=== PATIENT | female | born 1990 | race Caucasian/White ===

== ENCOUNTER 2023-07-22 20:33 | Outpatient (REF) | payer BC, SELFPAY ==
[2023-07-26 17:39] LABS: Age Gdln ACOG Testing Note (.); HPV Aptima Negative (Negative); IGP, Aptima HPV, rfx 16/18,45 Note (.)
== END 2023-07-22 20:34 | disposition home or self-care (01) ==
LOC: LAB 20:33
PROVIDERS: PCP Nurse Practitioner Primary Care; Visit Provider Obstetrics & Gynecology
DX: Z12.4 Encounter for screening for malignant neoplasm of cervix (principal)
CPT/HCPCS: 87624; G0145

== ENCOUNTER 2023-08-04 08:14 | Outpatient (OUT) | payer BC, SELFPAY ==
[2023-08-04 09:06] LABS: Basophils Percent Auto 0.4 % (0.2-2.0); Eosinophils Absolute Auto 0.3 10^3/uL (0.0-0.7); Eosinophils Percent Auto 3.2 % (0.9-7.0); Hemoglobin 13.5 g/dL (12.0-16.0); Immature Granulocytes Abs Auto 0.03 10^3/uL (0.00-0.03); Immature Granulocytes Pct Auto 0.4 % (0.0-0.5); Lymphocytes Absolute Auto 1.6 10^3/uL (1.2-3.8); Lymphocytes Percent Auto 20.1 % (20.5-60.0); Mean Corpuscular HGB Conc 33.8 g/dL (29.9-35.2); Mean Corpuscular Hemoglobin 28.7 pg (26.7-34.0); Mean Corpuscular Volume 84.9 fL (81.0-99.0); Monocytes Absolute Auto 0.5 10^3/uL (0.3-0.8); Monocytes Percent Auto 6.6 % (1.7-12.0); Neutrophils Absolute Auto 5.6 10^3/uL (1.4-6.5); Neutrophils Percent Auto 69.3 % (43.0-75.0); Platelet Count 280 10^3/uL (150-450); Red Blood Count 4.71 10^6/uL (4.20-5.40); Red Cell Distribution Width 12.9 % (11.0-15.0)
[2023-08-04 09:17] LABS: Estimated Average Glucose 100 mg/dL; Glycohemoglobin A1C 5.1 % (4.5-6.2)
[2023-08-04 09:57] LABS: Free T4 0.96 ng/dL (0.76-1.46)
[2023-08-04 10:06] LABS: HCG Quantitative <1 mIU/mL; Thyroid Stimulating Hormone 3.373 uIU/mL (0.358-3.740)
[2023-08-05 04:07] LABS: FSH 2.6 mIU/mL (.); Luteinizing Hormone(LH) 6.9 mIU/mL (.)
[2023-08-07 12:12] LABS: DHEA, Serum 375 ng/dL (31-701)
== END 2023-08-04 08:15 | disposition home or self-care (01) ==
LOC: LAB 08:16
PROVIDERS: PCP Nurse Practitioner Primary Care; Visit Provider Obstetrics & Gynecology
DX: E28.2 Polycystic ovarian syndrome (principal); N92.6 Irregular menstruation, unspecified
CPT/HCPCS: 36415; 82626; 82627; 83001; 83002; 83036; 84439; 84443; 84702; 85025

== ENCOUNTER 2023-08-05 09:59 | Outpatient (OUT) | payer BC, SELFPAY ==
--- NOTE | 2023-08-05 10:03 | US_ITS ---
The [address] [address] Patient Name: KIERRA HAIRSTON MRN: [id number] date: 1990 Sex: F Assigned Patient Location: Current Patient Location: Accession/Order Number: [id number] Exam Date: 08/05/2023 10:05 Report Date: 08/05/2023 10:59 At the request of: REMIGIO DORMAN Procedure: US pelvis transvaginal EXAM: Pelvic ultrasound HISTORY: . Polycystic Ovarian Syndrome E28.2, Irregular Menstrual Cycle . COMPARISON: None. TECHNIQUE: Transvaginal scanning was performed FINDINGS: Scanning of the pelvis demonstrates uterus to be retroverted and measures 7.9 x 5.6 x 4.6 cm. Endometrial complex measures 8 mm. Right ovary measures 4.3 x 3.1 x 2.7 cm. Color-flow is noted. Resistive indexes 0.5. Follicles are noted. Left ovary measures 3.2 x 2.1 x 1.9 cm. Color-flow is noted. Resistive indexes 0.6. No masses are noted. No fluid is noted in the cul-de-sac. US/US pelvis transvaginal IMPRESSION: Normal ultrasound of the pelvis. Electronically authenticated by: ELSIE PERALTA Date: 08/05/2023 10:59
== END 2023-08-05 10:00 | disposition home or self-care (01) ==
LOC: US 09:59
PROVIDERS: PCP Nurse Practitioner Primary Care; Visit Provider Obstetrics & Gynecology
DX: E28.2 Polycystic ovarian syndrome (principal); N92.6 Irregular menstruation, unspecified
CPT/HCPCS: 76830

== ENCOUNTER 2023-09-02 08:10 | Outpatient (OUT) | payer BC, SELFPAY ==
[2023-09-03 04:07] LABS: Progesterone 1.2 ng/mL (.)
== END 2023-09-02 08:11 | disposition home or self-care (01) ==
LOC: LAB 08:10
PROVIDERS: PCP Nurse Practitioner Primary Care; Visit Provider Obstetrics & Gynecology
DX: N97.0 Female infertility associated with anovulation (principal)
CPT/HCPCS: 36415; 84144

== ENCOUNTER 2023-09-29 16:55 | Emergency (ER) | payer BC, SELFPAY ==
[2023-09-29 17:04] VITALS: BP 126/82; PULSE 85; RESP 16; TEMP 36.9; O2SAT 99; BMI 38.0
[2023-09-29 17:28] VITALS: RESP 14; O2SAT 96
--- NOTE | 2023-09-29 17:30 | CT_ITS ---
The [address] [address] Patient Name: KIERRA HAIRSTON MRN: [id number] date: 1990 Sex: F Assigned Patient Location: ER Current Patient Location: ER Accession/Order Number: [id number] Exam Date: 09/29/2023 17:25 Report Date: 09/29/2023 18:05 At the request of: ELOISA CARDONA Procedure: CT head/brain wo con CT HEAD WITHOUT CONTRAST. INDICATION: Headache. COMPARISON: None available for comparison TECHNIQUE: Axial CT head images from the skull base to the vertex without IV contrast were acquired. Coronal and sagittal reformats were also obtained. FINDINGS: EXTRA-AXIAL SPACE: Age-appropriate ventricles. No acute extra-axial collection. No extra-axial mass. No midline shift. CEREBRUM: No focal abnormality. No CT evidence of acute large territorial cortical infarct, hemorrhage or mass effect. CEREBELLUM: No focal abnormality. No CT evidence of acute infarct, hemorrhage or mass effect. BRAINSTEM: No focal abnormality. No CT evidence of acute infarct, hemorrhage or mass effect. EXTRACRANIAL STRUCTURES. The paranasal sinuses are clear. Mastoid air cells are clear. Orbits are unremarkable. No discrete pituitary mass. Intact calvarium. CT/CT head/brain wo con IMPRESSION: No acute intracranial abnormality. Electronically authenticated by: RAYMUNDO MONROE Date: 09/29/2023 18:05
--- NOTE | 2023-09-29 17:35 | XR_ITS ---
The [address] [address] Patient Name: KIERRA HAIRSTON MRN: [id number] date: 1990 Sex: F Assigned Patient Location: ER Current Patient Location: ER Accession/Order Number: [id number] Exam Date: 09/29/2023 17:30 Report Date: 09/29/2023 18:06 At the request of: ELOISA CARDONA Procedure: XR nasal bones min 3V EXAM: XR nasal bones min 3V TECHNIQUE: AP and both lateral views of the nasal bones. HISTORY: injury COMPARISON: None. FINDINGS: There is fracture of the tip of the nasal bones with mild inferior angulation and overlying soft tissue swelling. No additional facial bone fracture. The sinuses appear clear. XR/XR nasal bones min 3V IMPRESSION: Fracture of the tip of the nasal bones with inferior angulation. Electronically authenticated by: JENISE REDMOND Date: 09/29/2023 18:06
--- NOTE | 2023-09-29 18:17 | ED.GENADUL1 ---
HPI - General Adult General Chief complaint: Head Injury Stated complaint: UPPER EXTREMITY INJURY Time Seen by Provider: 09/29/23 17:00 Source: patient and family Mode of arrival: walk-in Limitations: no limitations History of Present Illness HPI narrative: 32-year-old female presents for head injury and pain to her nose. She was helping somebody sit down and his head came backwards in the back of his head hit her on the nose and forehead area. She didn't fall or lose consciousness. His pain at the bridge of the nose. She did not have epistaxis. No other injury was sustained. She has a mild headache. This happened just before coming into the emergency department. Related Data Previous Rx's Medication Instructions Recorded acetaminophen 300 mg-codeine 30 mg 1 tab PO Q6H PRN pain 5 days #20 09/29/23 tablet tabs ibuprofen 800 mg tablet 800 mg PO Q8H PRN pain #20 tabs 09/29/23 Allergies Allergy/AdvReac Type Severity Reaction Status Date / Time No Known Drug Allergies Allergy Verified 09/29/23 17:08 Review of Systems ROS Narrative A ten point review of systems is negative except as noted above. PFSH PFSH Social History Smoking status: Never smoker Exam Narrative Exam Narrative: Nurses note and vital signs reviewed and patient is not hypoxic. General: The patient appears well and in no apparent distress. Patient is resting comfortably on cart. Skin: Warm, dry, no pallor noted. There is no rash noted. Head: Normocephalic, atraumatic Eye: Normal conjunctiva, no drainage Ears, Nose, Mouth, and Throat: oral mucosa is moist. she has mild swelling and bruising to the bridge of her nose. No laceration or epistaxis. No raccoon's eyes or Barney sign. Cardiovascular: Regular Rate and Rhythm Respiratory: Patient is in no distress, no accessory muscle use, lungs are clear to auscultation, no wheezing, rales or rhonchi Back: non-tender GI: soft and nontender Musculoskeletal: The patient has no evidence of calf tenderness, no pitting edema, symmetrical pulses noted bilaterally Neurological: A&O, normal speech Psychiatric: Cooperative Constitutional Vital Signs, click to edit/add: Last Vital Signs Temp 98.5 F 09/29/23 17:04 Pulse 85 09/29/23 17:04 Resp 14 09/29/23 17:28 BP 126/82 09/29/23 17:04 Pulse Ox 96 09/29/23 17:28 O2 Del Method Room Air 09/29/23 17:28 Course Vital Signs Vital signs: Vital Signs Temperature 98.5 F 09/29/23 17:04 Pulse Rate 85 09/29/23 17:04 Respiratory Rate 16 09/29/23 17:04 Blood Pressure 126/82 09/29/23 17:04 Pulse Oximetry 99 09/29/23 17:04 Oxygen Delivery Method Room Air 09/29/23 17:04 Temperature 98.5 F 09/29/23 17:04 Pulse Rate 85 09/29/23 17:04 Respiratory Rate 14 09/29/23 17:28 Blood Pressure 126/82 09/29/23 17:04 Pulse Oximetry 96 09/29/23 17:28 Oxygen Delivery Method Room Air 09/29/23 17:28 Medical Decision Making MDM Narrative Medical decision making narrative: nasal fractures identified and she is provided pain medication. Treatment diagnosis and follow-up were discussed with the patient. Differential Diagnosis Differential Diagnosis: nasal fracture, nasal contusion, intracranial hemorrhage Imaging Data nasal x-ray, CT brain: Radiologist's impression: Procedure: CT head/brain wo con CT HEAD WITHOUT CONTRAST. INDICATION: Headache. COMPARISON: None available for comparison TECHNIQUE: Axial CT head images from the skull base to the vertex without IV contrast were acquired. Coronal and sagittal reformats were also obtained. FINDINGS: EXTRA-AXIAL SPACE: Age-appropriate ventricles. No acute extra-axial collection. No extra-axial mass. No midline shift. CEREBRUM: No focal abnormality. No CT evidence of acute large territorial cortical infarct, hemorrhage or mass effect. CEREBELLUM: No focal abnormality. No CT evidence of acute infarct, hemorrhage or mass effect. BRAINSTEM: No focal abnormality. No CT evidence of acute infarct, hemorrhage or mass effect. EXTRACRANIAL STRUCTURES. The paranasal sinuses are clear. Mastoid air cells are clear. Orbits are unremarkable. No discrete pituitary mass. Intact calvarium. IMPRESSION: No acute intracranial abnormality. Electronically authenticated by: RAYMUNDO MONROE Date: 09/29/2023 18:05 Procedure: XR nasal bones min 3V EXAM: XR nasal bones min 3V TECHNIQUE: AP and both lateral views of the nasal bones. HISTORY: injury COMPARISON: None. FINDINGS: There is fracture of the tip of the nasal bones with mild inferior angulation and overlying soft tissue swelling. No additional facial bone fracture. The sinuses appear clear. IMPRESSION: Fracture of the tip of the nasal bones with inferior angulation. Electronically authenticated by: JENISE REDMOND Date: 09/29/2023 18:06 Discharge Plan Discharge Chief Complaint: Head Injury Clinical Impression: Closed fracture nasal bone Patient Disposition: Home, Self-Care Time of Disposition Decision: 18:15 Condition: Good Mode of Transportation: Private Vehicle Prescriptions / Home Meds: New acetaminophen-codeine 300-30 mg tablet 1 tab PO Q6H PRN (Reason: pain) 5 Days Qty: 20 0RF ibuprofen 800 mg tablet 800 mg PO Q8H PRN (Reason: pain) Qty: 20 0RF Instructions: Nasal Fracture (ED) Stand Alone Forms: Portal Instructions Referrals: SAJAN CHRISTIAN APRN [Primary Care Provider] - 1 week
== END 2023-09-29 18:29 | disposition home or self-care (01) ==
PROVIDERS: Emergency Provider Emergency Medicine; PCP Nurse Practitioner Primary Care
DX: S02.2XXA Fracture of nasal bones, initial encounter for closed fracture (principal); W50.0XXA Accidental hit or strike by another person, initial encounter
CPT/HCPCS: 70160; 70450; 99284

== ENCOUNTER 2023-10-09 12:53 | Outpatient (OUT) | payer BC, SELFPAY ==
[2023-10-10 04:07] LABS: Progesterone 12.2 ng/mL (.)
== END 2023-10-09 12:54 | disposition home or self-care (01) ==
LOC: LAB 12:53
PROVIDERS: PCP Nurse Practitioner Primary Care; Visit Provider Obstetrics & Gynecology
DX: N97.0 Female infertility associated with anovulation (principal)
CPT/HCPCS: 36415; 84144

== ENCOUNTER 2023-11-08 07:40 | Outpatient (OUT) | payer BC, SELFPAY ==
[2023-11-09 08:11] LABS: Progesterone 17.2 ng/mL (.)
== END 2023-11-08 07:41 | disposition home or self-care (01) ==
PROVIDERS: PCP Nurse Practitioner Primary Care; Visit Provider Obstetrics & Gynecology
DX: N97.0 Female infertility associated with anovulation (principal)
CPT/HCPCS: 36415; 84144

== ENCOUNTER 2023-11-10 11:00 | Outpatient (RCR) | payer BC, SELFPAY ==
[2023-11-10 11:53] LABS: HCG Quantitative <1 mIU/mL
== END 2023-11-23 07:59 | disposition home or self-care (01) ==
LOC: LAB 11:00
PROVIDERS: PCP Nurse Practitioner Primary Care; Visit Provider Obstetrics & Gynecology
DX: N92.6 Irregular menstruation, unspecified (principal)
CPT/HCPCS: 36415; 84702

== ENCOUNTER 2024-08-19 19:29 | Outpatient (REF) | payer BC, SELFPAY ==
--- OUTSIDE RECORDS SUMMARY | 2024-08-19 19:34 | XMS_ITS | CCD ---
Author Organization [facility] Care Team Providers Care Licensed Aircraft Maintenance Engineer Name Role Phone SHAMMO, SAJAN Admitting Unavailable SHAMMO, SAJAN Attending Unavailable SHAMMO, SAJAN Primary Care Unavailable Zieber, Mp Consulting Unavailable SHAMMO, SAJAN Consulting Unavailable SHAMMO, SAJAN Admitting Unavailable SHAMMO, SAJAN Attending Unavailable SHAMMO, SAJAN Primary Care Unavailable Zieber, Mp Consulting Unavailable SHAMMO, SAJAN Consulting Unavailable SHAMMO, SAJAN Admitting Unavailable SHAMMO, SAJAN Attending Unavailable SHAMMO, SAJAN Primary Care Unavailable SHAMMO, SAJAN Consulting Unavailable SHAMMO, SAJAN CHRISTIAN Primary Care Physician SHAMMO, SAJAN Primary Care Unavailable Windnagel, Ro Referring Unavailable SHAMMO, SAJAN Primary Care Unavailable CAREN FULTON Attending Unavailable Windnagel, Ro Admitting Unavailable Windnagel, Ro Attending Unavailable Windnagel, Ro Referring Unavailable SHAMMO, SAJAN Primary Care Unavailable BELTRAN TRIPATHI Attending Unavailable BELTRAN TRIPATHI Attending Unavailable WINDNAGEL, RO C Referring Unavailable NO PCP, NO PCP Primary Care Unavailable Windnagel, ANP-BC Ro Attending Provider NON STAFF Primary Care Provider Unavailabl e Windnagel, CONVEYOR TENDER [employer] Ro C Attending Provider NON STAFF Primary Care Unavailable Windnagel, Ro C Referring Unavailable Windnagel, Ro Admitting Unavailable Windnagel, Or Attending Unavailable Windnagel, Ro C Admitting Unavailable Windnagel, Ro C Attending Unavailable NON STAFF Primary Care Unavailable REMIGIO DORMAN Attending Unavailable BRUNO RYAN Attending Unavailable WINDNAGEL, RO C Attending Unavailable WINDNAGEL, RO C Referring Unavailable WINDNAGEL, RO C Attending Unavailable BAILEY PATELICIA Ladan Attending Unavailable BAILEY PATELICIA Ladan Attending Unavailable BAILEY PATELICIA Ladan Attending Unavailable FE STALLINGS Attending Unavailable Allergies Allergy Classification Reported Allergen(s) Allergy Type Date of Onset Reaction(s) Facility (1 source) Dextromethorphan / guaiFENesin; Translations: [DEXTROMETHORPHAN- AIFENESIN] Drug Allergy [facility] Repository Problems Active Problems Problem Classification Problem Date Documented Date Episodic/Chronic Anxiety disorders (2 sources) Anxiety; Translations: [Posttraumatic stress disorder] 07-03-2023 Chronic Attention-deficit, conduct, and disruptive behavior disorders (1 source) Attention deficit hyperactivity disorder 07-03-2023 Chronic Blindness and vision defects (1 source) Diplopia; Translations: [Diplopia] Onset: 05-31-2024 Episodic Endometriosis (1 source) Endometriosis (clinical) Onset: 06-04-2016 07-03-2023 Chronic Female infertility (1 source) Female infertility 07-03-2023 Chronic Genitourinary symptoms and ill-defined conditions (1 source) Nocturnal enuresis; Translations: [NOCTURNAL ENURESIS] Onset: 03-09-2023 Chronic Immunizations and screening for infectious disease (1 source) Encounter for screening for human immunodeficiency virus [HIV]; Translations: [ENCOUNTER FOR SCREENING FOR HIV] Onset: 03-09-2023 Episodic Mood disorders (1 source) Depressive disorder Onset: 07-13-2019 07-03-2023 Chronic Other nervous system disorders (2 sources) Carpal tunnel syndrome, bilateral upper limbs; Translations: [Carpal tunnel syndrome, bilateral upper limbs] Onset: 04-10-2023 Chronic Other nervous system disorders (1 source) Polyneuropathy, unspecified; Translations: [Polyneuropathy, unspecified] Onset: 05-31-2024 Chronic Other screening for suspected conditions (not mental disorders or infectious disease) (1 source) Encounter for screening for cardiovascular disorders; Translations: [ENC FOR SCREENING FOR CV DISORDERS] Onset: 03-01-2023 Episodic Residual codes; unclassified (1 source) Family history of other diseases of the musculoskeletal system and connective tissue; Translations: [FAM HX OTH DZ MUSK SYS AND CNCTV TISS] Onset: 04-16-2023 Episodic Spondylosis; intervertebral disc disorders; other back problems (8 sources) Pain in thoracic spine; Translations: [Occipital neuralgia] Onset: 02-13-2023 Episodic Unclassified (1 source) Low back pain, unspecified; Translations: [Low back pain, unspecified] Onset: 08-10-2024 Past or Other Problems Problem Classification Problem Date Documented Da te Episodic/Chronic Diseases of mouth; excluding dental (2 sources) Dry mouth, unspecified; Translations: [Dry mouth, unspecified] Onset: 04-10-2023 Episodic Malaise and fatigue (2 sources) Other fatigue; Translations: [Other fatigue] Onset: 04-10-2023 Episodic Other eye disorders (2 sources) Dry eye syndrome of bilateral lacrimal glands; Translations: [Dry eye syndrome of bilateral lacrimal glands] Onset: 04-10-2023 Episodic Other non-traumatic joint disorders (6 sources) Pain in unspecified joint; Translations: [PAIN IN UNSPECIFIED JOINT] Onset: 03-04-2023 Episodic Results Test Name Value Interpretation Reference Range Facility XR pre/post mri xrayon 08-10 XR pre/post mri xray [facility] [place] [address] MRI Report Signed Patient: Kierra Natarajan MR#: [id number] 35 : 1990 Acct:[id number] Age/Sex: 33 / F ADM Date: 08/10/24 Loc: Room: Type: [facility] Attending Dr: Ro MAGDALENO Copies to: RASTA Arzola Ordering Provider: RASTA Arzola Date of Service: 08/10/24 MR/MR lumbar spine wo con: R26.9, M54.50, N39.489, R20.0 ([id number]) XR/XR pre/post mri xray: R26.9, M54.50, N39.489, R20.0 MRI Lumbar Spine withoutcontrast TECHNIQUE: Multiplanar T1 and T2-weighted imaging of lumbar spine obtained without contrast. HISTORY: Right flank pain. Left leg numbness. 3 years duration. Loss of control of bowel bladder. COMPARISON: None The last fully segmented vertebral pair is operationally defined as L5/S1. POST SURGERY CHANGES: None BONE MARROW INFILTRATION: None BONE MARROW EDEMA: None BONY ALIGNMENT: Adequate bony alignment identified. SPINAL CANAL: No significant central canal narrowing. LUMBAR FRACTURE: None BONY LESIONS: Small L1 vertebral body hemangioma. KIDNEYS: No hydronephrosis is identified. AORTA: No aortic aneurysm is seen. CONUS MEDULLARIS : The distal spinal cord is in adequate position without abnormality. Additional findings Incompletely visualized cystic lesion of the pelvis present. This may be of ovarian origin. This measures up to 3.7 cm. CONJOINED NERVE ROOT: None Lower thoracic level: Unremarkable L1-2 :Unremarkable L2-3: Unremarkable L3-4: Unremarkable L4-5: Unremarkable L5-S1: Unremarkable MR/MR lumbar spine wo con IMPRESSION: Unremarkable MRI of the lumbar spine. Incompletely visualized pelvic cystic lesion. This may be of ovarian origin. May consider further assessment with pelvic ultrasound. Pre-MRI plain film assessment: 2 views lumbar spine obtained for pre-MRI assessment. Adequate alignment. Adequate disc spaces and vertebral body heights. No significant degenerative change. No fracture. Impression dictated by: Eben Morel M.D.08/10/2024 8:33 AM Dictation Location: [place] [address] Transcribed By: [facility] 08/10/24 0833 Dictated By: Eben Morel DO 08/10/24 0828 Signed By: 08/10/24 0833 Normal [facility] MR cervical spine wo conon 0 06-25-2024 MR cervical spine wo con [facility] [place] [address] MRI Report Signed Patient: Kierra Natarajan MR#: [id number] 35 : 1990 Acct:[id number] Age/Sex: 33 / F ADM Date: 06/25/24 Loc: MR Room: Type: [facility] Attending Dr: Ro Patel Adult CONVEYOR T[employer]ER [employer]-BC Copies to: CAROLYN Arzola NP-C Ordering Provider: RASTA Arzola Date of Service: 06/25/24 MR/MR cervical spine wo con: M54.81 M50.30 EXAMINATION: MRI OF THE CERVICAL SPINE WITHOUT CONTRAST CLINICAL DATA: Right-sided facial pain, bilateral arm weakness for 2 years. COMPARISON: None TECHNIQUE: Multiecho imaging was performed in the sagittal and axial plane without contrast administration. FINDINGS: Vertebral body heights appear maintained. No bone marrow edema. Cervicomedullary junction is normal. No abnormal cord signal. No prevertebral soft tissue swelling. No paraspinal mass. C2-3: Normal. C3-4: No posterior disc pathology. Minimal facet joint degenerative changes. No significant canal or neural foraminal stenosis. C4-5: No posterior disc pathology. Minimal facet joint degenerative changes. No significant canal or neural foraminal stenosis. C5-6: Central disc osteophyte complex present causing mild canal and bilateral neural foraminal stenosis. C6-7: No posterior disc pathology. Minimal facet joint degenerative change. No significant canal or neural foraminal stenosis. C7-T1: Normal. 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 Impression dictated by: Tony Yung Jr., Blanca06/25/2024 6:59 PM Dictation Location: [place] [address] Transcribed By: [facility] 06/25/241858 Dictated By: Tony Yung Jr, DO 06/25/241852 Signed By: 06/25/241858 Normal [facility] Folate [Mass/Vol]on 05-31-20 FOLIC ACID 15.0 ng/mL Normal >5.8 [facility] Comment on above: Result Comment: NEW REFERENCE RANGE Performed By: #### 3 016-3, 2284-8, 2132-9, 27001-1 #### [facility] ([id number]) [address], [address] [place] [address] #### 03369-8 #### [facility] ([id number]) [address] [place] [address], [place] [address] Methylmalonate [Moles/Vol]on 05-31-2024 Methylmalonic Acid, QN, P 0.15 nmol/mL Normal <=0.40 [facility] Comment on above: Result Comment: NOTE ADDITIONAL INFORMATION This test was developed and its performance characteristics determined by [facility] in a manner consistent with CLIA requirements. This test has not been cleared or approved by the U.S. Food and Drug Administration. Test Performed by: [facility] [place] [id number] Technician Support Engineer: Michele Lee Ph.D.; CLIA# [id number] Performed By: #### 3 016-3, 4-8, 9, 07179-8 #### [facility] ([id number]) [address] [place] [address], [address] [place] [address] #### [id number] #### [facility] ([id number]) [address] [place] [address] TSH Qnon 05-31-2024 TSH 2.81 uIU/mL Normal 0.49-4.67 [facility] Comment on above: Performed By: #### 3 016-3, 4-8, 9, 01877-9 #### [facility] ([id number]) [address] [place] [address], [address] [place] [address] #### 25260-0 #### [facility] ([id number]) [address] [place] [address] VITAMIN B12on 05-31-2024 Cobalamin (Vitamin B12) [Mass/Vol] 297 pg/mL Normal 180-914 [facility] Comment on above: Performed By: #### 3 016-3, 4-8, 9, 63296-7 #### [facility] ([id number]) [address] [place] [address], [address] [place] [address] #### 74119-7 #### [facility] ([id number]) [address] [place] [address] Vitamin D+Metabolites [Mass/ Vol]on 05-31-2024 VITAMIN D 25 HYD TOT 27.9 ng/mL Low 30-100 [facility] Comment on above: Result Comment: Vitamin D status 25 [place] Vitamin D Deficiency <20 ng/mL Insufficiency 20-29 ng/mL Sufficiency 30-100 ng/mL Toxicity >100 ng/mL NOTE: A pediatric reference range has not been established by the delivery lead of this kit. The [place] [employer] recommends a Vitamin D level of = or >20ng/mL in infants and children. Performed By: #### 3 016-3, 2284-8, 2132-9, 55372-8 #### [facility] ([id number]) [address], [address] [place] [address] #### 82676-1 #### [facility] ([id number]) [address] [place] [address], [place] [address] MR BRAIN W AND WO CONTRAST ( IACS)on 05-13-2024 MR BRAIN W AND WO CONTRAST (IACS) EXAM: MR BRAIN W AND WO CONTRAST (IACS) History: diplopia, dizziness. Attention to IAC on the right Technique: Multiplanar multisequence MRI of the brain was performed without and with contrast including thin slice pre and postcontrast images through the internal auditory canals. Comparison: None available Findings: Brain volume is age-appropriate. Ventricular morphology is within normal limits. No edema, hemorrhage, mass, mass effect, midline shift, or abnormal extra-axial fluid collection. The cerebellar tonsils are low-lying extending approximately 3-4 mm through the foramen magnum. There is no diffusion restriction. No susceptibility artifact is identified on the gradient echo sequence. Cranial nerves VII and VIII are normal in course and contour. No enhancing mass is present in the cerebellopontine angles or internal auditory canals. There is normal fluid signal of the inner ear structures including cochlea and vestibules. There is intact osseous covering over the superior semicircular canals. The major intracranial vascular flow voids are maintained. The visualized paranasal sinuses and bilateral mastoid air cells are clear. IMPRESSION: Normal appearance of cranial nerves VII/VIII. No cerebellopontine angle or internal auditory canal mass. ELECTRONICALLY SIGNED BY: Abner Ramirez DO Normal Not Available 36on 08-14-2023 36 Pt called regarding lab results ordered by pt's OBGYN seeking fertility treatment. Pt is going to have labs faxed over. [facility] Follow-Upon 04-17-2023 Follow-Up [id number] Philomena NATARAJAN 1990 F Date Provider Department Center 04/17/2023 BELTRAN AVILA [facility] RHEUM Lian Heal Family History Problem Relation Age of Onset Anxiety disorder Mother Arthritis Mother Depression Mother Alcohol abuse Father Cancer Father Alcohol abuse Sister Anxiety disorder Sister Arthritis Mother's Sister Arthritis Mother's Brother Arthritis Mother's Sister Family Status - Relation Status Age at Mother Father Sister Mother's Sister Mother's Brother Mother's Sister Level of Service:14637 [place] OFFICE/OUTPATIENT ESTABLISHED MOD MDM 30-39 MIN () Reason for Visit and Comments: Follow-up [[id number]] - 2 week follow up [facility] Neurology Forms- Texton 03-25 Neurology Forms- Text [id number] D:127 [facility] 36on 04-15-2023 36 Spoke w/ pt and she states the pharmacy gave her the run around stating they did not receive her rx from 04/10/23, and could not tell her if rx was sent under maiden name Just to be ob the safe side can you approve a new rx w/ her correct name, now that it has been updated in [facility] 36 Pt left VM in office regarding her name change. She states rx may not have been sent under correct name. Pt needs called to verify what med/s need sent to her pharmacy now that name has been updated in [facility] Consent for Treatmenton 03-25 Consent for Treatment [id number] D:127 [facility] ANAon 04-10-2023 WILMA TITER <1:40 Normal <=1:40 [facility] Comment on above: Order Comment: By IF A Result Comment: Test performed using OMA IFA WILMA Hep-2 Test, a pre-standardized assay designed for the qualitative and semi-quantitative detection of antinuclear antibodies. Performed By: #### L [id number] #### [facility] ([facility]) [address] [place] [address] C3 COMPLEMENTon 04-10-2023 Magnesium [Mass/Vol] 125.00 mg/dL Normal 79.00-152.00 [facility] Comment on above: Performed By: #### L [id number] #### [facility] ([facility]) [address] [place] [address] C4 COMPLEMENTon 04-10-2023 Magnesium [Mass/Vol] 21.8 mg/dL Normal 16-38 [facility] Comment on above: Performed By: #### L [id number] #### [facility] ([facility]) [address] [place] [address] CBC WITH AUTO DIFFERENTIALon 04-10-2023 Basophils (Bld) [#/Vol] 0.06 10*3/uL Normal 0.00-0.20 [facility] Comment on above: Performed By: #### L [id number] #### [facility] ([facility]) [address] [place] [address] Basophils/100 WBC (Bld) 0.7 % Normal 0.0-1.0 [facility] Comment on above: Performed By: #### L [id number] #### [facility] ([facility]) [address] [place] [address] Eosinophils (Bld) [#/Vol] 0.13 10*3/uL Normal 0.00-0.50 [facility] Comment on above: Performed By: #### L [id number] #### [facility] ([facility]) [address] [place] [address] Eosinophils/100 WBC (Bld) 1.6 % Normal 0.0-6.0 [facility] Comment on above: Performed By: #### L [id number] #### [facility] ([facility]) [address] [place] [address] Erythrocyte distribution width (RBC) [Ratio] 13.0 % Normal 11.5-15.0 [facility] Comment on above: Performed By: #### L [id number] #### [facility] ([facility]) [address] [place] [address] ERYTHROCYTE MEAN CORPUSCULAR HEMOGLOBIN CONCENTRATION (G/DL) BY AUTOMATED 33.4 g/dL Normal 32.0-35.0 [facility] Comment on above: Performed By: #### L [id number] #### [facility] ([facility]) [address] [place] [address] Hematocrit (Bld) [Volume fraction] 43.1 % Normal 36.0-48.0 [facility] Comment on above: Performed By: #### L [id number] #### [facility] ([facility]) [address] [place] [address] Hemoglobin (Bld) [Mass/Vol] 14.4 g/dL Normal 12.0-15.0 [facility] Comment on above: Performed By: #### L [id number] #### [facility] ([facility]) [address] [place] [address] Immature granulocytes (Bld) [#/Vol] 0.03 10*3/uL Normal 0.00-0.20 [facility] Comment on above: Performed By: #### L [id number] #### [facility] ([facility]) [address] [place] [address] Immature granulocytes/100 WBC (Bld) 0.4 % Normal 0.0-1.0 [facility] Comment on above: Performed By: #### L [id number] #### [facility] ([facility]) [address] [place] [address] Lymphocytes (Bld) [#/Vol] 1.79 10*3/uL Normal 1.20-4.00 [facility] Comment on above: Performed By: #### L [id number] #### [facility] ([facility]) [address] [place] [address] Lymphocytes/100 WBC (Bld) 21.8 % Normal 20.0-45.0 [facility] Comment on above: Performed By: #### L [id number] #### [facility] ([facility]) [address] [place] [address] MCH (RBC) [Entitic mass] 28.5 pg Normal 27.0-33.0 [facility] Comment on above: Performed By: #### L [id number] #### [facility] ([facility]) [address] [place] [address] MCV (RBC) [Entitic vol] 85.2 fL Normal 82.0-98.0 [facility] Comment on above: Performed By: #### L [id number] #### [facility] ([facility]) [address] [place] [address] Monocytes (Bld) [#/Vol] 0.55 10*3/uL Normal 0.10-1.00 [facility] Comment on above: Performed By: #### L [id number] #### [facility] ([facility]) [address] [place] [address] Monocytes/100 WBC (Bld) 6.7 % Normal 5.0-12.0 [facility] Comment on above: Performed By: #### L [id number] #### [facility] ([facility]) [address] [place] [address] Neutrophils (Bld) [#/Vol] 5.65 10*3/uL Normal 1.60-7.60 [facility] Comment on above: Performed By: #### L [id number] #### [facility] ([facility]) [address] [place] [address] Neutrophils/100 WBC (Bld) 68.8 % Normal 40.0-72.0 [facility] Comment on above: Performed By: #### L [id number] #### [facility] ([facility]) [address] [place] [address] NRBC (PER 100 WBCS) BY AUTOMATED COUNT 0.0 % Normal 0 [facility] Comment on above: Performed By: #### L [id number] #### [facility] ([facility]) [address] [place] [address] PLATELETS (10*3/UL) IN BLOOD AUTOMATED COUNT 320 10*3/uL Normal 150-400 [facility] Comment on above: Performed By: #### L [id number] #### [facility] ([facility]) [address] [place] [address] RBC (Bld) [#/Vol] 5.06 10*6/uL High 3.80-5.00 [facility] Comment on above: Performed By: #### L [id number] #### [facility] ([facility]) [address] [place] [address] WBC (Bld) [#/Vol] 8.21 10*3/uL Normal 4.00-10.60 [facility] Comment on above: Performed By: #### L [id number] #### [facility] ([facility]) [address] [place] [address] COMPREHENSIVE METABOLIC PANE Philip 04-10-2023 Albumin [Mass/Vol] 4.7 g/dL Normal 3.5-5.7 [facility] Comment on above: Performed By: #### L [id number] #### [facility] ([facility]) [address] [place] [address] ALP [Catalytic activity/Vol] 74 U/L Normal 34-104 [facility] Comment on above: Performed By: #### L [id number] #### [facility] ([facility]) [address] [place] [address] ALT [Catalytic activity/Vol] 21 U/L Normal 7-52 [facility] Comment on above: Performed By: #### L [id number] #### [facility] ([facility]) [address] [place] [address] Anion gap [Moles/Vol] 11 mmol/L Normal 7-20 [facility] Comment on above: Performed By: #### L [id number] #### [facility] ([facility]) [address] [place] [address] AST [Catalytic activity/Vol] 18 U/L Normal 13-39 [facility] Comment on above: Performed By: #### L [id number] #### [facility] ([facility]) [address] [place] [address] Bilirubin [Mass/Vol] 0.6 mg/dL Normal 0.3-1.0 [facility] Comment on above: Performed By: #### L [id number] #### [facility] ([facility]) [address] [place] [address] Calcium [Mass/Vol] 9.2 mg/dL Normal 8.6-10.3 [facility] Comment on above: Performed By: #### L [id number] #### [facility] ([facility]) [address] [place] [address] Chloride [Moles/Vol] 106 mmol/L Normal 98-107 [facility] Comment on above: Performed By: #### L [id number] #### [facility] ([facility]) [address] [place] [address] CO2 [Moles/Vol] 25 mmol/L Normal 21-31 [facility] Comment on above: Performed By: #### L [id number] #### [facility] ([facility]) [address] [place] [address] Creatinine [Mass/Vol] 0.86 mg/dL Normal 0.60-1.20 [facility] Comment on above: Performed By: #### L [id number] #### [facility] ([facility]) [address] [place] [address] GLOMERULAR FILTRATION RATE ML/MIN/1.73 SQ M.PREDICTED 91.4 mL/min/1.73m*2 Normal >60.0 [facility] Comment on above: Result Comment: [facility]???s estimated glomerular filtration rate (eGFR) will no longer include consideration of race in its calculation. The National Kidney Foundation???s eGFR Task Force developed new recommendations for the estimation of the glomerular filtration rate in the [place] They recommend immediate implementation of the new equation refit without the race variable in all laboratories because the calculation does not include race. In addition to not including race in the calculation and reporting, it included diversity in its development, and has acceptable performance characteristics and potential consequences that do not disproportionately affect any one group of individuals. Performed By: #### L [id number] #### [facility] ([facility]) [address] [place] [address] Glucose [Mass/Vol] 80 mg/dL Normal 70-100 [facility] Comment on above: Performed By: #### L [id number] #### [facility] ([facility]) [address] [place] [address] Potassium [Moles/Vol] 3.8 mmol/L Normal 3.5-5.1 [facility] Comment on above: Performed By: #### L [id number] #### [facility] ([facility]) [address] [place] [address] Protein [Mass/Vol] 7.2 g/dL Normal 6.0-8.3 [facility] Comment on above: Performed By: #### L [id number] #### [facility] ([facility]) [address] [place] [address] Sodium [Moles/Vol] 138 mmol/L Normal 136-145 [facility] Comment on above: Performed By: #### L [id number] #### [facility] ([facility]) [address] [place] [address] Urea nitrogen [Mass/Vol] 12 mg/dL Normal 7-25 [facility] Comment on above: Performed By: #### L [id number] #### [facility] ([facility]) [address] [place] [address] UREA NITROGEN/CREATININE (MASS RATIO) IN SER/PLAS 14.[address] [facility] Comment on above: Performed By: #### L [id number] #### [facility] ([facility]) [address] [place] [address] EXTRACTABLE NUCLEAR ANTIGEN ANTIBODIESon 04-10-2023 ANTI SM AB Negative Normal [facility] Comment on above: Performed By: #### L [id number] #### [facility] ([facility]) [address] [place] [address] ANTI SM/ANTIRNP AB Negative Normal [facility] Comment on above: Performed By: #### L [id number] #### [facility] ([facility]) [address] [place] [address] Office Visiton 04-10-2023 Follow-up visit [id number] Jose Maria Avalos 1990 F Date Provider Department Center 04/10/2023 [facility] Lian Heal Family History Problem Relation Age of Onset Anxiety disorder Mother Arthritis Mother Depression Mother Alcohol abuse Father Cancer Father Alcohol abuse Sister Anxiety disorder Sister Arthritis Mother's Sister Arthritis Mother's Brother Arthritis Mother's Sister Family Status - Relation Status Age at Mother Father Sister Mother's Sister Mother's Brother Mother's Sister Level of Service:[address] [place] OFFICE/OUTPATIENT NEW MODERATE MDM 45-59 MINUTES (GC) Reason for Visit and Comments: New Patient [632] - Polyarthralgia Normal [facility] SJOGRENS SYNDROME ANTIBODIES A AND Bon 04-10-2023 VETO TO SSA (RO) ANTIBODY Negative Normal Negative [facility] Comment on above: Performed By: #### L [id number] #### [facility] ([facility]) [address] [place] [address] VETO TO SSB (LA) ANTIBODY Negative Normal Negative [facility] Comment on above: Performed By: #### L [id number] #### [facility] ([facility]) [address] [place] [address] URINALYSISon 04-10-2023 BILIRUBIN, TOTAL PRESENCE IN URINE Negative Normal Negative [facility] Comment on above: Performed By: #### L [id number] #### [facility] ([facility]) [address] [place] [address] Clarity (U) Slightly Cloudy Abnormal Clear [facility] Comment on above: Performed By: #### L [id number] #### [facility] ([facility]) [address] [place] [address] Color (U) Yellow Normal Yellow [facility] Comment on above: Performed By: #### L [id number] #### [facility] ([facility]) [address] [place] [address] Glucose (U) [Mass/Vol] Negative Normal Negative [facility] Comment on above: Performed By: #### L [id number] #### [facility] ([facility]) [address] [place] [address] HEMOGLOBIN PRESENCE IN URINE Negative Normal Negative [facility] Comment on above: Performed By: #### L [id number] #### [facility] ([facility]) [address] [place] [address] Ketones Ql (U) Negative Normal Negative [facility] Comment on above: Performed By: #### L [id number] #### [facility] ([facility]) [address] [place] [address] LEUKOCYTE ESTERASE PRESENCE IN URINE BY TEST STRIP Negative Normal Negative [facility] Comment on above: Performed By: #### L [id number] #### [facility] ([facility]) [address] [place] [address] NITRITE PRESENCE IN URINE Negative Normal Negative [facility] Comment on above: Performed By: #### L [id number] #### [facility] ([facility]) [address] [place] [address] pH (U) 6.0 [pH] Normal 5.0-8.0 [facility] Comment on above: Performed By: #### L [id number] #### [facility] ([facility]) [address] [place] [address] Protein (U) [Mass/Vol] 30 mg/dL Abnormal Negative [facility] Comment on above: Performed By: #### L [id number] #### [facility] ([facility]) [address] [place] [address] Specific gravity (U) [Rel density] 1.026 High 1.015-1.020 [facility] Comment on above: Performed By: #### L [id number] #### [facility] ([facility]) [address] [place] [address] UROBILINOGEN (EU/DL) IN URINE 2.0 EU/dL Abnormal Negative [facility] Comment on above: Performed By: #### L [id number] #### [facility] ([facility]) [address] [place] [address] URINALYSIS MICROSCOPICon CASTS IN URINE Normal [facility] Comment on above: Performed By: #### L [id number] #### [facility] ([facility]) [address] [place] [address] CRYSTALS IN URINE Normal [facility] Comment on above: Performed By: #### L [id number] #### [facility] ([facility]) [address] [place] [address] MUCUS (#/HPF) IN URINE SEDIMENT Moderate Abnormal None Seen, Occasional, Few [facility] Comment on above: Performed By: #### L [id number] #### [facility] ([facility]) [address] [place] [address] RBC (#/HPF) IN URINE SEDIMENT 0-[address] [facility] Comment on above: Performed By: #### L [id number] #### [facility] ([facility]) [address] [place] [address] SQUAMOUS EPITHELIAL CELLS (#/HPF) IN URINE SEDIMENT Many Abnormal None Seen, Occasional [facility] Comment on above: Performed By: #### L [id number] #### [facility] ([facility]) [address] [place] [address] WBC (LEUKOCYTE) (#/HPF) IN URINE SEDIMENT 0-[address] [facility] Comment on above: Performed By: #### L [id number] #### [facility] ([facility]) [address] [place] [address] Physician Orderon 04-08-2023 Physician Order [id number] D:127 Normal [facility] WILMA EIA W/REFLEX 9 BIOMARKER Son 03-05-2023 WILMA Direct Negative Normal Negative [facility] Comment on above: Performed By: #### A [id number] #### [facility] [address] [place] [address] Dr. Altagracia Allen C-REACTIVE PROTEINS (HS)on 0 03-05-2023 C-Reactive Protein, Cardiac 2.96 mg/L Normal 0.00-3.00 [facility] Comment on above: Result Comment: Rela tive Risk for Future Cardiovascular Event Low <1.00 Average 1.00 - 3.00 High >3.00 Performed By: #### C RPHS #### [facility] [address] [place] [address] Dr. Altagracia Allen CYCLIC CITRULLINATED PEPTIDE AB (CCP)on 03-05-2023 CCP Antibodies IgG/IgA 4 units Normal 0-19 [facility] Comment on above: Result Comment: Nega tive <20 Weak positive 20 - 39 Moderate positive 40 - 59 Strong positive >59 Performed By: #### C CPAB #### [facility] [address] [address] [address] Altagracia Allen HIV 1 AND 2 WITH REFLEXon HIV Screen 4th Generation wRfx Non-Reactive Normal Non Reactive [facility] Comment on above: Result Comment: HIV Negative HIV-1/HIV-2 antibodies and HIV-1 p24 antigen were NOT detected. There is no laboratory evidence of HIV infection. Performed By: #### H IV12 #### [facility] [address] [place] [address] Dr. Altagracia Allen MRI TSPINE WO CONon 03-05-20 23 MRI TSPINE WO CON EXAMINATION: MRI TSP INE WO CON HISTORY: Pain in thoracic spine ; midline back pain and pressure; no known injury COMPARISON: XR T-spine 02/13/2023 TECHNIQUE: Axial T2; Sagittal T1, T2, and Stir sequences. Images were performed without contrast. FINDINGS: CORD: Normal caliber, contour, and signal intensity. BONES: No fracture, pars defect, or osseous lesion. DISCS: Mild diffuse disc bulging T3-4 without significant central canal or foramen narrowing. PARASPINAL AREA: No visible mass. OTHER: Negative. IMPRESSION: 1. T3-4 mild posterior disc bulging which may contribute to patient's symptoms. No significant central canal or foramen stenosis. 2. No compression fracture, bone lesion, or abnormal marrow signal. Electronically authenticated by: MP PAIGE Date: 2023-03-05 14:38 Normal [facility] RHEUMATOID FACTORon 03-05-20 23 RA Latex Turbid. <10.0 Normal <14.0 [facility] Comment on above: Performed By: #### R F ####[facility] [address] [place], [place] [address]Dr. Altagracia Allen [facility] 14 mm/hr Normal <=20 [facility] Comment on above: Performed By: #### S EDR #### [facility] [address] [address] [address] Altagracia Allen HEMOGRAM AND PLATELon 2022 Hematocrit (Bld) [Volume fraction] 40.0 % Normal 36.0-48.0 [facility] Comment on above: Performed By: #### H H ####[facility] [address] [address]Dr. Altagracia Allen Hemoglobin (Bld) [Mass/Vol] 13.5 g/dL Normal 12.0-16.0 [facility] Comment on above: Performed By: #### H H ####[facility] [address] [address]Dr. Altagracia Allen MCH (RBC) [Entitic mass] 28.5 pg Normal 26.7-34.0 [facility] Comment on above: Performed By: #### H H ####[facility] [address] [address]Dr. Altagracia Allen MCHC (RBC) [Mass/Vol] 33.8 g/dL Normal 29.9-35.2 [facility] Comment on above: Performed By: #### H H ####[facility] [address] [id number]. Altagracia Allen MCV (RBC) [Entitic vol] 84.6 fL Normal 81.0-99.0 [facility] Comment on above: Performed By: #### H H ####[facility] [address] [id number] Allen PLT 271 103/ul Normal 150-450 [facility] Comment on above: Performed By: #### H H ####[facility] [address] [address]DrAlexx Allen RBC 4.73 106/ul Normal 4.20-5.40 [facility] Comment on above: Performed By: #### H H ####[facility] [address] [address]DrAlexx Allen WBC 8.0 103/ul Normal 4.0-11.0 [facility] Comment on above: Performed By: #### H H ####[facility] [address] [address]Dr. Altagracia Allen LIPID PROFILEon 02-25-2023 CHOL-HDL RATIO NORM SEE BELOW Normal [facility] Comment on above: Result Comment: 3.3 - 4.4 LOW RISK 4.4 - 7.1 AVERAGE RISK 7.1 - 11.0 MODERATE RISK >11.0 HIGH RISK Performed By: #### L IPID, TSHRFT4, CMP #### [facility] [address] [address] [address] Altagracia Allen Cholesterol [Mass/Vol] 175 mg/dL Normal <=200 [facility] Comment on above: Performed By: #### L IPID, TSHRFT4, CMP #### [facility] [address] [address] [address] Altagracia Allen Cholesterol in HDL [Mass/Vol] 29 mg/dL Critically low 40-60 [facility] Comment on above: Performed By: #### L IPID, TSHRFT4, CMP #### [facility] [address] [address] [address] Altagracia Allen Cholesterol in LDL [Mass/Vol] 127.2 mg/dL Normal [facility] Comment on above: Performed By: #### L IPID, TSHRFT4, CMP #### [facility] [address] [address] [address] Altagracia Allen Cholesterol.total/C holesterol in HDL [Mass ratio] 6.0 {ratio} Normal [facility] Comment on above: Performed By: #### L IPID, TSHRFT4, CMP #### [facility] [address] [address] [address] Altagracia Allen HDL NORMAL > or = 60 mg/dl - LO W CARDIOVASCULAR RISK <40 mg/dl - HIGH CARDIOVASCULAR RISK Normal [facility] Comment on above: Performed By: #### L IPID, TSHRFT4, CMP #### [facility] [address] [address] [address] Altagracia Allen LDL CALC NORMAL SEE BELOW Normal [facility] Comment on above: Result Comment: <100 mg/dl OPTIMAL 100 - 129 mg/dl NEAR OR ABOVE OPTIMAL 130 - 159 mg/dl BORDERLINE HIGH 160 - 189 mg/dl HIGH >190 mg/dl VERY HIGH Performed By: #### L IPID, TSHRFT4, CMP #### [facility] [address] [address] [address] Altagracia Allen Triglyceride [Mass/Vol] 94 mg/dL Normal <=150 [facility] Comment on above: Performed By: #### L IPID, TSHRFT4, CMP #### [facility] [address] [address] [address] Altagracia Allen VLDL CALC 18.8 mg/dL Normal [facility] Comment on above: Performed By: #### L IPID, TSHRFT4, CMP #### [facility] [address] [address] [address] Altagracia Allen PROF 14(COMP METB)on 023 Albumin [Mass/Vol] 3.6 g/dL Normal 3.4-5.0 [facility] Comment on above: Performed By: #### L IPID, TSHRFT4, CMP #### [facility] [address] [place] [address] Dr. Altagracia Allen Albumin/Globulin [Mass ratio] 1.1 {ratio} Normal [facility] Comment on above: Performed By: #### L IPID, TSHRFT4, CMP #### [facility] [address] [place] [address] Dr. Altagracia Allen ALP [Catalytic activity/Vol] 72 U/L Normal 46-116 [facility] Comment on above: Performed By: #### L IPID TSHRFT4, CMP #### [facility] [address] [place] [address] Dr. Altagracia Allen ALT [Catalytic activity/Vol] 27 U/L Normal 14-59 [facility] Comment on above: Performed By: #### L IPID, TSHRFT4, CMP #### [facility] [address] [place] [address] Dr. Altagracia Allen Anion gap [Moles/Vol] 13.8 mmol/L Normal [facility] Comment on above: Performed By: #### L IPID, TSHRFT4, CMP #### [facility] [address] [place] [address] Dr. Altagracia Allen AST [Catalytic activity/Vol] 17 U/L Normal 15-37 [facility] Comment on above: Performed By: #### L IPID, TSHRFT4, CMP #### [facility] [address] [place] [address] Dr. Altagracia Allen Bilirubin [Mass/Vol] 0.2 mg/dL Normal 0.2-1.0 [facility] Comment on above: Performed By: #### L IPID, TSHRFT4, CMP #### [facility] [address] [place] [address] Dr. Altagracia Allen Calcium [Mass/Vol] 8.6 mg/dL Normal 8.5-10.1 [facility] Comment on above: Performed By: #### L IPID, TSHRFT4, CMP #### [facility] [address] [address] [address] Altagracia Allen Chloride [Moles/Vol] 106 mmol/L Normal 98-107 [facility] Comment on above: Performed By: #### L IPID, TSHRFT4, CMP #### [facility] [address] [address] [address] Altagracia Allen CO2 [Moles/Vol] 23.7 mmol/L Normal 21.0-32.0 [facility] Comment on above: Performed By: #### L IPID, TSHRFT4, CMP #### [facility] [address] [place] [address] Dr. Altagracia Allen Creatinine [Mass/Vol] 0.76 mg/dL Normal 0.55-1.02 [facility] Comment on above: Performed By: #### L IPID, TSHRFT4, CMP #### [facility] [address] [place] [address] Dr. Altagracia Allen EGFR-AF DANISH >60 Normal >=60 [facility] Comment on above: Performed By: #### L IPID, TSHRFT4, CMP #### [facility] [address] [place] [address] Dr. Altagracia Allen EGFR-NON AF DANISH >60 Normal >=60 [facility] Comment on above: Performed By: #### L IPID, TSHRFT4, CMP #### [facility] [address] [address] [address] Altagracia Allen Globulin (S) [Mass/Vol] 3.4 g/dL Normal [facility] Comment on above: Performed By: #### L IPID, TSHRFT4, CMP #### [facility] [address] [place] [address] Dr. Altagracia Allen Glucose [Mass/Vol] 92 mg/dL Normal 74-106 [facility] Comment on above: Performed By: #### L IPID, TSHRFT4, CMP #### [facility] [address] [place] [address] Dr. Altagracia Allen Potassium [Moles/Vol] 3.5 mmol/L Normal 3.5-5.1 [facility] Comment on above: Performed By: #### L IPID, TSHRFT4, CMP #### [facility] [address] [place] [address] Dr. Altagracia Allen Protein [Mass/Vol] 7.0 g/dL Normal 6.4-8.2 [facility] Comment on above: Performed By: #### L IPID, TSHRFT4, CMP #### [facility] [address] [place] [address] Dr. Altagracia Allen Sodium [Moles/Vol] 140 mmol/L Normal 136-145 [facility] Comment on above: Performed By: #### L IPID, TSHRFT4, CMP #### [facility] [address] [place] [address] Dr. Altagracia Allen Urea nitrogen [Mass/Vol] 13.0 mg/dL Normal 7.0-18.0 [facility] Comment on above: Performed By: #### L IPID, TSHRFT4, CMP #### [facility] [address] [place] [address] Dr. Altagracia Allen Urea nitrogen/Creatinine [Mass ratio] 17.1 mg/mg Normal [facility] Comment on above: Performed By: #### L IPID, TSHRFT4, CMP #### [facility] [address] [place] [address] Dr. Altagracia Allen TSH W/ REFLEX TO FT4on 02-25 TSH 2.830 uIU/mL Normal 0.358-3.740 [facility] Comment on above: Performed By: #### L IPID, TSHRFT4, CMP #### [facility] [address] [place] [address] Dr. Altagracia Allen XR TSPINE 3 VIEWSon 02-15-20 23 XR TSPINE 3 VIEWS EXAMINATION: XR TSPI NE 3 VIEWS HISTORY: Pain in thoracic spine ; right lower thoracic pain for 2 months; no known injury COMPARISON: No relevant comparison available. FINDINGS: BONES: No significant spondylosis, scoliosis, fracture, or visible bony lesion. DISC SPACES: No significant disc height narrowing, subluxation, or endplate abnormality. PARASPINOUS: Negative. No paraspinous abnormality is seen. OTHER: Negative. IMPRESSION: 1. No appreciable acute abnormality or significant degenerative changes. Electronically authenticated by: MP PAIGE Date: 2023-02-14 07:59 Normal [facility] CBC W/DIFFon 01-23-2021 ABS BASOPHILS 0.1 10*3/uL Normal 0.0-0.2 [facility] Comment on above: Performed By: #### 5 0103 #### [facility] [address] ABS IMM GRANS 0.0 10*3/uL Normal 0.0-0.2 [facility] Comment on above: Performed By: #### 5 0103 #### [facility] [address] ABS NEUTROPHILS 4.9 10*3/uL Normal 1.6-7.6 [facility] Comment on above: Performed By: #### 5 0103 #### [facility] [address] Basophils/100 WBC (Bld) 0.7 % Normal 0.0-1.[address] [facility] Comment on above: Performed By: #### 5 0103 #### [facility] [address] [place] [address], [facility] Eosinophils (Bld) [#/Vol] 0.3 10*3/uL Normal 0.0-0.[address] [facility] Comment on above: Performed By: #### 5 0103 #### [facility] [address] [place] [address], [facility] Eosinophils/100 WBC (Bld) 3.6 % Normal 0.0-6.[address] [facility] Comment on above: Performed By: #### 5 0103 #### [facility] [address] Erythrocyte distribution width (RBC) [Ratio] 13.2 % Normal 11.5-15.[address] [facility] Comment on above: Performed By: #### 5 0103 #### [facility] [address] [facility] [place] [address], [facility] Hematocrit (Bld) [Volume fraction] 44.2 % Normal 36.0-45.[address] [facility] Comment on above: Performed By: #### 0103 #### [facility] [address] Hemoglobin (Bld) [Mass/Vol] 14.4 g/dL Normal 12.0-15.[address] [facility] Comment on above: Performed By: #### 5 3 #### [facility] [address] IMMATURE GRANS 0.4 % Normal 0.0-1.0 [facility] Comment on above: Performed By: #### 3 #### [facility] [address] [place] [address], [facility] Lymphocytes (Bld) [#/Vol] 1.8 10*3/uL Normal 1.2-4.[address] [facility] Comment on above: Performed By: #### 5 0103 #### [facility] [address] [facility] [place] [address], [facility] Lymphocytes/100 WBC (Bld) 23.3 % Normal 20.0-45.[address] [facility] Comment on above: Performed By: #### 5 0103 #### [facility] [address] [facility] [place] [address], [facility] MCH (RBC) [Entitic mass] 29.1 pg Normal 27.0-33.[address] [facility] Comment on above: Performed By: #### 5 3 #### [facility] [address] MCHC (RBC) [Mass/Vol] 32.6 g/dL Normal 32.0-35.[address] [facility] Comment on above: Performed By: #### 5 0103 #### [facility] [address] [place] [address], [facility] MCV (RBC) [Entitic vol] 89.3 fL Normal 82.0-98.[address] [facility] Comment on above: Performed By: #### 5 0103 #### [facility] [address] [place] [address], [facility] Monocytes (Bld) [#/Vol] 0.6 10*3/uL Normal 0.1-1.[address] [facility] Comment on above: Performed By: #### 5 0103 #### [facility] [address] [place] [address], [facility] MONOS 7.6 % Normal 5.0-12.0 [facility] Comment on above: Performed By: #### 5 0103 #### [facility] [address] [place] [address], [facility] Neutrophils/100 WBC (Bld) 64.4 % Normal 40.0-72.[address] [facility] Comment on above: Performed By: #### 5 0103 #### [facility] [address] [place] [address], [facility] Nucleated RBC/100 WBC (Bld) [Ratio] 0 % Normal 0-[address] [facility] Comment on above: Performed By: #### 5 0103 #### [facility] [address] [place] [address], [facility] PLAT CNT 264 10*3/uL Normal 150-400 [facility] Comment on above: Performed By: #### 5 3 #### [facility] [address] [place] [address], [facility] RBC (Bld) [#/Vol] 4.95 10*6/uL Normal 3.80-5.00 [facility] Comment on above: Performed By: #### 5 0103 #### [facility] [address] [facility]. [address] WBC (Bld) [#/Vol] 7.59 10*3/uL Normal 4.00-10.60 [facility] Comment on above: Performed By: #### 5 0103 #### [facility] [address] COMP METABOLIC PANELon 01-23 Albumin [Mass/Vol] 4.4 g/dL Normal 3.5-5.7 The [facility] Comment on above: Performed By: #### 4 6413, 98431, 02002 #### [facility] [address] ALKALINE PHOSPH 64 IU/L Normal 34-104 The [facility] Comment on above: Performed By: #### 4 6413, 77338, 34399 #### [facility] [address] [facility]. [address] ALT [Catalytic activity/Vol] 13 U/L Normal 7-[address] [facility] Comment on above: Performed By: #### 4 6413, 71367, 94875 #### [facility] [address] AST [Catalytic activity/Vol] 14 U/L Normal 13-[address] [facility] Comment on above: Performed By: #### 4 6413, 77560, 74748 #### [facility] [address] [place] [address], [facility] Bilirubin [Mass/Vol] 0.4 mg/dL Normal 0.3-1.0 [facility] Comment on above: Performed By: #### 4 6413, 79655, 73914 #### [facility] [address] [place] [address], [place] Calcium [Mass/Vol] 9.2 mg/dL Normal 8.6-10.3 [facility] Comment on above: Performed By: #### 4 6413, 68339, 68432 #### [facility] [address] [place] [address], [place] Chloride [Moles/Vol] 105 mmol/L Normal 98-[address] [facility] Comment on above: Performed By: #### 4 6413, 90492, 28691 #### [facility] [address] [place] [address], [place] CO2 [Moles/Vol] 28 mmol/L Normal 21-31 [facility] Comment on above: Performed By: #### 4 6413, 04648, 73952 #### [facility] [address] [place] [address], [place] Creatinine [Mass/Vol] 0.90 mg/dL Normal 0.60-1.[address] [facility] Comment on above: Performed By: #### 4 6413, 80400, 56342 #### [facility] [address] [place] [address], [place] GFR/1.73 sq M predicted among blacks MDRD (S/P/Bld) [Vol rate/Area] mL/min/{1.73_m2} Normal >[address] [facility] Comment on above: Performed By: #### 4 6413, 43887, 03993 #### [facility] [address] [place] [address], [place] GFR/1.73 sq M predicted among non-blacks MDRD (S/P/Bld) [Vol rate/Area] mL/min/{1.73_m2} Normal >[address] [facility] Comment on above: Performed By: #### 4 6413, 19134, 01405 #### [facility] [address] [place] [address], [place] Glucose [Mass/Vol] 86 mg/dL Normal 70-100 [facility] Comment on above: Performed By: #### 4 6413, 73201, 34695 #### [facility] [address] [place] [address], [place] Potassium [Moles/Vol] 3.9 mmol/L Normal 3.5-5.[address] [facility] Comment on above: Performed By: #### 4 6413, 07904, 12029 #### [facility] [address] [place] [address], [place] Protein [Mass/Vol] 7.1 g/dL Normal 6.0-8.3 [facility] Comment on above: Performed By: #### 4 6413, 95535, 69704 #### [facility] [address] [place] [address], [place] Sodium [Moles/Vol] 138 mmol/L Normal 136-145 [facility] Comment on above: Performed By: #### 4 6413, 00101, 57860 #### [facility] [address] [place] [id number], [facility] Urea nitrogen [Mass/Vol] 11 mg/dL Normal 7-[address] [facility] Comment on above: Performed By: #### 4 6413, 14718, 05123 #### [facility] [address] [place] [address], [place] LIPID PROFILEon 01-23-2021 Cholesterol [Mass/Vol] 162 mg/dL Normal 120-[address] [facility] Comment on above: Result Comment: CHOL ESTEROL REFERENCE RANGE: 20 YEARS AND OLDER CARDIOVASCULAR RISK Less than 200 mg/dl Low Risk 200 to 239 mg/dl Borderline Risk 240 mg/dl and greater High Risk Performed By: #### 4 6413, 31037, 33792 #### [facility] [address] [place] [address], [place] Cholesterol in HDL [Mass/Vol] 38 mg/dL Normal 23-[address] [facility] Comment on above: Result Comment: Slig ht variation in normal range could be due to gender and/or age. HDL CHOLESTEROL REFERENCE RANGE: 20 years and older Cardiovascular Risk > or =60 mg/dL Desirable 40 TO 59 mg/dL Low Risk <40 mg/dL High Risk Performed By: #### 4 6413, 82551, 39050 #### [facility] [address] [place] [address], [place] Cholesterol in LDL [Mass/Vol] 111 mg/dL Normal 0-[address] [facility] Comment on above: Result Comment: LDL IS A CALCULATION LDL IS ONLY VALID IF THE TRIG IS LESS THAN 400. Performed By: #### 4 6413, 17999, 03965 #### [facility] [address] [place] [address], [place] Cholesterol.total/C holesterol in HDL [Mass ratio] 4.3 {ratio} Normal 0.0-4.5 [facility] Comment on above: Performed By: #### 4 6413, 71611, 56762 #### [facility] [address] [place] [address], [place] NON-HDL CHOLESTEROL 124 mg/dL Normal [facility] Comment on above: Performed By: #### 4 6413, 80526, 80196 #### [facility] [address] [place] [address], [place] Triglyceride [Mass/Vol] 66 mg/dL Normal 40-[address] [facility] Comment on above: Result Comment: TRIG LYCERIDE REFERENCE RANGE: 20 YEARS AND OLDER CARDIOVASCULAR RISK LESS THAN 150 mg/dl LOW RISK 150 TO 199 mg/dl BORDERLINE RISK 200 mg/dl AND GREATER HIGH RISK Performed By: #### 4 6413, 84172, 65949 #### [facility] [address] [place] [address], [place] VLDL CHOL 13 mg/dL Normal 0-[address] [facility] Comment on above: Performed By: #### 4 6413, 09922, 98863 #### [facility] [address] [place] [address], [facility] TSH3 WITH REFLEX FT4on 01-23 TSH 3RD GENERATION 1.73 uIU/mL Normal 0.34-5.60 The [facility] Comment on above: Performed By: #### 4 6413, 16269, 90760 #### [facility] [address] [place] [address], [facility] Encounters Encounter Date Encounter Type Care Provider Facility Start: 08-19-2024 ambulatory FE HAYLIE Not Availa ble Start: 08-17-2024 End: 08-17-2024 ambulatory RO C WINDNAGEL Not Available Start: 08-10-2024 End: 08-10-2024 Patient encounter procedure ANP-BC Ro Windnagel Work Phone: [facility] [place] Work Phone: Start: 08-10-2024 End: 08-10-2024 ambulatory NON STAFF [facility] Work Phone: Start: 07-01-2024 End: 07-01-2024 ambulatory RO C WINDNAGEL Not Available Start: 06-25-2024 End: 06-25-2024 Patient encounter procedure ANP-BC Ro Windnagel Work Phone: [facility] [place] Work Phone: Start: 06-25-2024 End: 06-25-2024 ambulatory NON STAFF [facility] Work Phone: Start: 06-08-2024 End: 06-08-2024 ambulatory RO C WINDNAGEL Not Available Start: 06-01-2024 End: 06-01-2024 ambulatory RO C WINDNAGEL Not Available Start: 05-31-2024 End: 05-31-2024 ambulatory RO C WINDNAGEL [facility] Start: 05-13-2024 End: 05-13-2024 ambulatory RO C WINDNAGEL Not Available Start: 04-29-2024 End: 04-29-2024 ambulatory RO PATEL Not Available Start: 02-17-2024 End: 02-17-2024 ambulatory BRUNO RYAN Not Available Start: 02-03-2024 End: 02-03-2024 ambulatory REMIGIO DORMAN Not Available Start: 07-08-2023 End: 07-09-2023 ambulatory Ro Windnagel Facility:[facility] Start: 07-08-2023 End: 07-08-2023 Patient encounter procedure CAREN FULTON [facility] Start: 04-28-2023 ambulatory SAJAN SHAMMO Facility:[facility] Start: 04-17-2023 End: 04-17-2023 ambulatory [facility] Start: 04-15-2023 End: 04-16-2023 ambulatory Ro Alexnamaged Facility:[facility] Start: 04-10-2023 End: 04-10-2023 ambulatory [facility] Start: 03-04-2023 End: 03-05-2023 ambulatory SAJAN SHAMMO Facility: Start: 03-01-2023 Encounter for genera l adult medical examination without abnormal findings SAJAN SHAMMO [facility] Start: 02-25-2023 End: 02-26-2023 ambulatory SAJAN SHAMMO Facility: Start: 02-25-2023 End: 02-26-2023 Encounter for general adult medical examination without abnormal findings SAJAN SHAMMO Facility:[facility] Start: 02-13-2023 End: 02-14-2023 ambulatory SAJAN SHAMMO Facility: Procedures Date Procedure Procedure Detail Performing Clinician Start: 08-10-2024 MR lumbar spine wo con ANP-BC Ro Windnagel Work Phone: Start: 08-10-2024 XR pre/post mri xray AN P-BC Ro Windnagel Work Phone: Start: 06-25-2024 MRI of cervical spin e without contrast ANP-BC Ro Windnagel Work Phone: Start: 04-17-2023 Follow-up visit Follow-up BELTRAN BROOKS KONDE Dilation and curettage RUBI FULTON Hysterectomy CAREN FULTON Tonsillectomy CAREN FULTON Payers Date Payer Category Payer Self-pay 2023 Unknown 1989 Unknown [id number] 2.16.84 [id number] 1989 Unknown [id number] 2.16.84 [id number] 1989 Unknown [id number] 2.16.84 0.1.060744.3.579.2.593 1989 Unknown [id number] 2.16.8 40.1.897867.3.579.2.727 1989 Unknown [id number] 2.16.8 40.1.300105.3.579.2.727 1989 Unknown [id number] 2.16.8 40.1.666486.3.579.2.727 1989 Unknown [id number] 2.16.8 40.1.366289.3.579.2.1286 1989 Unknown [id number] 2.16.84 0.1.466341.3.579.2.1259 1989 Unknown [id number] 2.16.84 0.1.083681.3.579.2.1259 1989 Unknown [id number] 2.16.84 0.1.591161.3.579.2.1259 1989 Unknown [id number] 2.16.84 0.1.953080.3.579.2.1259 1989 Unknown [id number] 2.16.84 0.1.647466.3.579.2.1259 1989 Unknown [id number] 2.16.84 0.1.860589.3.579.2.1259 1989 Unknown [id number] 2.16.84 0.1.463530.3.579.2.1259 1989 Unknown [id number] 2.16.84 0.1.588361.3.579.2.1259 1989 Unknown [id number] 2.16.84 0.1.040263.3.579.2.1259 1959 Unknown [id number] 1959 Unknown [id number] Unknown [id number] 2.16.8 40.1.736639.3.579.2.531 Unknown [id number] 2.16.8 40.1.443296.3.579.2.531 Social History Date Type Detail Facility Tobacco smoking status [facility] Sex Assigned At Female [facility] Start: 1990 Sex Assigned At Female [facility] Progress note 04-17-2023 Note Date & Type Note Facility 04-17-2023 Note ------ Attestation signed by Pavel Ball MD at 04/21/2023 10:30 AM I personally saw and examined the patient on the same date of service as resident/fellow . I discussed the findings and therapeutic plan with the resident/fellow . I agree with the documentation, except for any edits/updates below. Teaching Physician's Revisions: ------ Subjective Patient ID: Kierra NATARAJAN is a 32 y.o. female who presents for No chief complaint on file.. HPI 32 y.o. year old female with history of anxiety, depression, ADHD, and PTSD referred for evaluation of her polyarthralgias. Other work up including complement levels, CMP, CBC, and VETO were WNL. WILMA titer remains in process. She remains due to follow up with her procurement representative. 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 Review of Systems Constitutional: Positive for activity change (more sedentary), fatigue and unexpected weight change (gained 40 pounds). Negative for chills and fever. HENT: Positive for mouth sores and trouble swallowing. Eyes: Positive for photophobia and redness. Negative for pain, itching and visual disturbance. Respiratory: Negative for cough, shortness of breath and wheezing. Cardiovascular: Positive for palpitations. Negative for chest pain. Gastrointestinal: Negative for constipation, diarrhea, nausea and vomiting. Endocrine: Positive for cold intolerance. Musculoskeletal: Positive for arthralgias and joint swelling. Negative for back pain, myalgias, neck pain and neck stiffness. Skin: Positive for rash (cheeks). Neurological: Positive for headaches. Negative for weakness and light-headedness. Psychiatric/Behavioral: Negative for sleep disturbance. Objective There were no vitals taken for this visit. Physical Exam Constitutional: General: She is not in acute distress. Appearance: Normal appearance. She is well-developed and well-groomed. She is obese. HENT: Head: Normocephalic and atraumatic. Mouth/Throat: Mouth: Mucous membranes are moist. Eyes: Extraocular Movements: Extraocular movements intact. Conjunctiva/sclera: Right eye: Right conjunctiva is injected. Left eye: Left conjunctiva is injected. Cardiovascular: Rate and Rhythm: Normal rate and regular rhythm. Heart sounds: No murmur heard. No friction rub. No gallop. Pulmonary: Effort: Pulmonary effort is normal. Breath sounds: Normal breath sounds. No wheezing, rhonchi or rales. Musculoskeletal: General: No swelling, tenderness or deformity. Cervical back: Normal range of motion and neck supple. Comments: Positive right Tinel's sign Skin: General: Skin is warm and dry. Capillary Refill: Capillary refill takes less than 2 seconds. Findings: No rash. Comments: Erythematous bilateral cheeks consistent with rosacea Neurological: General: No focal deficit present. Mental Status: She is alert and oriented to person, place, and time. Psychiatric: Mood and Affect: Mood normal. Thought Content: Thought content normal. Assessment/Plan 32 y.o. year old female with history of anxiety, depression, ADHD, and PTSD referred for evaluation of her polyarthralgias. Polyarthralgias Episcleritis - intermittent pain and synovitis of her wrists and MCPs described as more non-inflammatory in nature; family history of RA in mother and aunts/uncle - Rheum positive: polyarthralgias of knees, hands, elbows, fatigue, dry eyes, right eye photophobia, photosensitivity, oral ulcerations, one 15 week miscarriage, globus sensation?, possible episcleritis - previous steroid trial for her injected eyes with no relief - Rheum negative: alopecia, dry mouth, DVT, PE, Raynaud's, malar rash - she has a strong maternla history of RA, one aunt with SLE - negative rheumatologic autoimmune work up. Her WILMA titer is pending - suggested she seek evaluation by an procurement representative for her episcleritis; currently no significant extraintestinal manifestations to point toward an autoimmune cause - we discussed long-term treatment with steroid-sparing agents such as methotrexate. She will seek evaluation with optho and discuss her options including DMARD with them with plan to follow up after Bilateral carpal tunnel syndrome - numbness and tingling with weakness more prominent in the right wrist with positive Tinel's sign - patient to continue with bilateral nocturnal wrist bracing Mid-thoracic pain - subacute midthoracic pain responsive to muscle relaxants and acetaminophen - recent MRI imaging showed disc bulging - following with Neurology - tolerating naproxen PRN RTC in 3 weeks or sooner pending ophthalmology follow up Patient was seen with attending physician Dr. Quinn Tripathi MD Rheumatology Fellow, PGY-4 [facility] Progress note 04-10-2023 Note Date & Type Note Facility 04-10-2023 Note ------ Attestation signed by Pavel Ball MD at 04/13/2023 7:07 PM I personally saw and examined the patient on the same date of service as resident/fellow . I discussed the findings and therapeutic plan with the resident/fellow . I agree with the documentation, except for any edits/updates below. Teaching Physician's Revisions: ------ Subjective Patient ID: Kierra Avalos is a 32 y.o. female who presents for No chief complaint on file.. HPI 32 y.o. year old female with history of anxiety, depression, ADHD, and PTSD referred for evaluation of her polyarthralgias. Recently she's been having photophobia with recommendations by her optometrists to seek evaluation. She describes intermittent pain and synovitis of her wrists and MCPs. Sometime radiating pain from her elbow to her fingers. She has found relieve with muscle relaxants and acetaminophen. Pain improves slightly then is worse at the end of the day and with use. She's also gained weight averaging 45 pounds. She was on a steroid drop for her irritated right eye with no improvement. For her photosensitivity and headaches she did have an MRI which showed a bulging disk with plan for an EEG in a couple of weeks. Due to her migraines she describes poor sleep with overnight awakenings. She's had them only for 2 weeks. Prior to this sleep was not an issues. Labs drawn including ESR, CRP, WILMA screen, RF, CCP, HIV were WNL.. Rheum positive: polyarthralgias of knees, hands, elbows, fatigue, dry eyes, right eye photophobia, photosensitivity, oral ulcerations, malar rash, one 15 week miscarriage, globus sensation?, possible episcleritis Rheum negative: alopecia, dry mouth, DVT, PE, Raynaud's Past Hospital: none Past Surgical: tonsillectomy, D&C x2 Medications and allergies reviewed. 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 Negative for chills and fever. HENT: Positive for mouth sores and trouble swallowing. Eyes: Positive for photophobia and redness. Negative for pain, itching and visual disturbance. Respiratory: Negative for cough, shortness of breath and wheezing. Cardiovascular: Positive for palpitations. Negative for chest pain. Gastrointestinal: Negative for constipation, diarrhea, nausea and vomiting. Endocrine: Positive for cold intolerance. Musculoskeletal: Positive for arthralgias and joint swelling. Negative for back pain, myalgias, neck pain and neck stiffness. Skin: Positive for rash (cheeks). Neurological: Positive for headaches. Negative for weakness and light-headedness. Psychiatric/Behavioral: Negative for sleep disturbance. Objective There were no vitals taken for this visit. Physical Exam Constitutional: General: She is not in acute distress. Appearance: Normal appearance. She is well-developed and well-groomed. She is obese. HENT: Head: Normocephalic and atraumatic. Mouth/Throat: Mouth: Mucous membranes are moist. Eyes: Extraocular Movements: Extraocular movements intact. Conjunctiva/sclera: Right eye: Right conjunctiva is injected. Left eye: Left conjunctiva is injected. Cardiovascular: Rate and Rhythm: Normal rate and regular rhythm. Heart sounds: No murmur heard. No friction rub. No gallop. Pulmonary: Effort: Pulmonary effort is normal. Breath sounds: Normal breath sounds. No wheezing, rhonchi or rales. Musculoskeletal: General: No swelling, tenderness or deformity. Cervical back: Normal range of motion and neck supple. Comments: Positive right Tinel's sign Skin: General: Skin is warm and dry. Capillary Refill: Capillary refill takes less than 2 seconds. Findings: No rash. Comments: Erythematous bilateral cheeks consistent with rosacea Neurological: General: No focal deficit present. Mental Status: She is alert and oriented to person, place, and time. Psychiatric: Mood and Affect: Mood normal. Thought Content: Thought content normal. Assessment/Plan 32 y.o. year old female with history of anxiety, depression, ADHD, and PTSD referred for evaluation of her polyarthralgias. Polyarthralgias Episcleritis - intermittent pain and synovitis of her wrists and MCPs described as more non-inflammatory in nature; family history of RA in mother and aunts/uncle - Rheum positive: polyarthralgias of knees, hands, elbows, fatigue, dry eyes, right eye photophobia, photosensitivity, oral ulcerations, one 15 week miscarriage, globus sensation?, possible scleritis - previous steroid trial for her injected ey (more content not included)... [facility] Evaluation + Plan note Note Date & Type Note Facility Evaluation + Plan note No data available for this section [facility] Evaluation note Note Date & Type Note Facility [facility] Discharge instructions Note Date & Type Note Facility Hospital Discharge instructions No data available for this section [facility] Progress note Note Date & Type Note Facility Progress note No data available for this section [facility] Summary Purpose Family History No Family History Records FoundNo Family History Records FoundNo Family History Records FoundNo Family History Records FoundNo Family History Records FoundNo Family History Records FoundNo Family History Records Found Advance Directives No Advanced Directives Records Found Advance Directive Response Recorded Date/ Time Advance Directives No June 08 1:55pm Chief Complaint and Reason for Visit Chief Complaint M54.81 M50.30 Chief Complaint M54.81 M50.30 r26.9 m54.50 g89.29 n39.498 r20.0 Additional Source Comments INFORMATION SOURCE (unrecogn ized section and content) DATE CREATED AUTHOR 03/09/2021 [facility] DATE CREATED AUTHOR AUTHOR'S ORGANIZ ATION 03/09/2023 [facility] DATE CREATED AUTHOR AUTHOR'S ORGANIZ ATION 07/10/2023 Osiel Santana [facility] DATE CREATED AUTHOR AUTHOR'S ORGANIZ ATION 08/16/2023 [facility] DATE CREATED AUTHOR AUTHOR'S ORGANIZ ATION 06/08/2024 [facility] DATE CREATED AUTHOR AUTHOR'S ORGANIZ ATION 08/16/2024 [facility] DATE CREATED AUTHOR AUTHOR'S ORGANIZ ATION 08/19/2024 [facility] EPIC Patient Care team informatio n (unrecognized section and content) Team Status: Active Member Role Status Dates NON STAFF Primary Care Provider Active Team Status: Inactive Member Role Status Dates JAYA Freedman Attending Provider Active Start: June 25, 2024 End: June 25, 2024 NON STAFF Primary Care Provider Active Start: June 25, 2024 End: June 25, 2024 Team Status: Inactive Member Role Status Dates NON STAFF Primary Care Provider Active Start: August 10, 2024 End: August 10, 2024 RASTA Arzola Attending Provider Active Start: August 10, 2024 End: August 10, 2024 Goals (unrecognized section and content) Goals may be documented in a n alternate section FOR RECORDS PERTAINING TO PATIENTS WHO ARE OR HAVE BEEN ENROLLED IN A CHEMICAL DEPENDENCY/SUBSTANCEABUSE PROGRAM, SOME INFORMATION MAY BE OMITTED. This clinical summary was aggregated from multiple sources. Caution should be exercised in using it in the provision of clinical care. This summary normalizes information from multiple sources, and as a consequence, information in this document may materially change the coding, format and clinical context of patient data. In addition, data may be omitted in some cases. CLINICAL DECISIONS SHOULD BE BASED ON THE PRIMARY CLINICAL RECORDS. [employer] provides no warranty or guarantee of the accuracy or completeness of information in this document.
[2024-08-25 13:11] LABS: Age Gdln ACOG Testing Note (.); HPV Aptima Negative (Negative); IGP, Aptima HPV, rfx 16/18,45 Note (.)
== END 2024-08-19 19:30 | disposition home or self-care (01) ==
LOC: LAB 19:29
PROVIDERS: PCP Nurse Practitioner Primary Care; Visit Provider Physician Assistant
DX: Z01.419 Encounter for gynecological examination (general) (routine) without abnormal findings (principal)
CPT/HCPCS: 87081; 87150; 87624; 88175

== ENCOUNTER 2024-08-24 10:53 | Outpatient (OUT) | payer BC, SELFPAY ==
--- OUTSIDE RECORDS SUMMARY | 2024-08-24 11:06 | XMS_ITS | CCD ---
Author Organization [facility] Care Team Providers Care Publications Inspector Name Role Phone SHAMMO, SAJAN Admitting Unavailable [...] Care Unavailable Windnagel, ANP-BC Ro Attending Provider [phone] NON STAFF Primary Care Provider Unavailabl e Windnagel, GOVERNMENT GUARD-C Ro C Attending Provider NON STAFF Primary [...] / guaiFENesin; Translations: [DEXTROMETHORPHAN- AIFENESIN] Drug Allergy [facility] Repository Problems Active Problems Problem Classification Problem [...] mri xrayon 08-10 XR pre/post mri xray [facility] [place] [address] MRI Report Signed Patient: Kierra Natarajan MR#: [id number] 35 : 1990 Acct:[id number] Age/Sex: 33 / F ADM Date: 08/10/24 Loc: Room: Type: [facility] Attending Dr: Ro MAGDALENO Copies to: RASTA Arzola Ordering Provider: RASTA Arzola Date of Service: 08/10/24 MR/MR lumbar spine wo con: R26.9, M54.50, N39.489, R20.0 ([id number]) XR/XR pre/post mri xray: R26.9, M54.50, N39.489, [...] Eben Morel M.D.08/10/2024 8:33 AM Dictation Location: [place] [address] Transcribed By: [facility] 08/10/24 0833 Dictated By: Eben Morel DO 08/10/24 0828 Signed By: 08/10/24 0833 Normal [facility] MR cervical spine wo conon 0 06-25-2024 MR cervical spine wo con [facility] [place] [address] MRI Report Signed Patient: Kierra Nataraajn MR#: [id number] 35 : 1990 Acct:[id number] Age/Sex: 33 / F ADM Date: 06/25/24 Loc: MR Room: Type: [facility] Attending Dr: Ro Patel Adult GOVERNMENT GUARD-BC Copies to: CAROLYN Arzola NP-C Ordering Provider: [...] Yung Jr., Blanca06/25/2024 6:59 PM Dictation Location: [place] [address] Transcribed By: [facility] 06/25/241858 Dictated By: Tony Yung Jr, DO 06/25/241852 Signed By: 06/25/241858 Normal [facility] Folate [Mass/Vol]on 05-31-20 FOLIC ACID 15.0 ng/mL Normal >5.8 [facility] Comment on above: Result Comment: NEW REFERENCE RANGE Performed By: #### 3 016-3, 2284-8, 2132-9, 17559-0 #### [facility] ([id number]) [address], [address] [place] [address] #### [id number] #### [facility] ([id number]) [address] [place] [address], [place] [address] Methylmalonate [Moles/Vol]on 05-31-2024 Methylmalonic Acid, QN, P 0.15 nmol/mL Normal <=0.40 [facility] Comment on above: Result Comment: NOTE ADDITIONAL INFORMATION This test was developed and its performance characteristics determined by [facility] in a manner consistent with CLIA requirements. This test has not been cleared or approved by the U.S. Food and Drug Administration. Test Performed by: [facility] [place] [id number] Conduit Helper: Michele Lee Ph.D.; CLIA# [id number] Performed By: #### 3 016-3, 4-8, 9, 48592-2 #### [facility] ([id number]) [address] [place] [address], [address] [place] [address] #### [id number] #### [facility] ([id number]) [address] [place] [address] TSH Qnon 05-31-2024 TSH 2.81 uIU/mL Normal 0.49-4.67 [facility] Comment on above: Performed By: #### 3 016-3, 4-8, 9, 27985-7 #### [facility] ([id number]) [address] [place] [address], [address] [place] [address] #### 85181-3 #### [facility] ([id number]) [address] [place] [address] VITAMIN B12on 05-31-2024 Cobalamin (Vitamin B12) [Mass/Vol] 297 pg/mL Normal 180-914 [facility] Comment on above: Performed By: #### 3 016-3, 4-8, 9, 61935-5 #### [facility] ([id number]) [address] [place] [address], [address] [place] [address] #### 29230-8 #### [facility] ([id number]) [address] [place] [address] Vitamin D+Metabolites [Mass/ Vol]on 05-31-2024 VITAMIN D 25 HYD TOT 27.9 ng/mL Low 30-100 [facility] Comment on above: Result Comment: Vitamin D status 25 [place] Vitamin D Deficiency <20 ng/mL Insufficiency 20-29 ng/mL Sufficiency 30-100 ng/mL Toxicity >100 ng/mL NOTE: A pediatric reference range has not been established by the sign language interpreter of this kit. The [place] [employer] recommends a Vitamin D level of = or >20ng/mL in infants and children. Performed By: #### 3 016-3, 2284-8, 2132-9, 73183-2 #### [facility] ([id number]) [address], [address] [place] [address] #### 40483-2 #### [facility] ([id number]) [address] [place] [address], [place] [address] MR BRAIN W AND WO CONTRAST ( [...] is going to have labs faxed over. [facility] Follow-Upon 04-17-2023 Follow-Up [id number] Philomena NATARAJAN 1990 F Date Provider Department Center 04/17/2023 [facility] Lian He[facility] Family History Problem Relation Age of Onset Anxiety disorder Mother Arthritis Mother Depression Mother Alcohol abuse Father Cancer Father Alcohol abuse Sister Anxiety disorder Sister Arthritis Mother's Sister Arthritis Mother's Brother Arthritis Mother's Sister Family Status - Relation Status Age at Mother Father Sister Mother's Sister Mother's Brother Mother's Sister Level of Service:60031 [place] OFFICE/OUTPATIENT ESTABLISHED MOD MDM 30-39 MIN () Reason for Visit and Comments: Follow-up [920691] - 2 week follow up [facility] Neurology Forms- Texton 03-25 Neurology Forms- Text [id number]#[id number] D:127 [facility] 36on 04-15-2023 35 Spoke w/ pt and she states the pharmacy gave her the run around stating they did not receive her rx from 04/10/23, and could not tell her if rx was sent under maiden name Just to be ob the safe side can you approve a new rx w/ her correct name, now that it has been updated in [facility] 36 Pt left VM in office regarding her name change. She states rx may not have been sent under correct name. Pt needs called to verify what med/s need sent to her pharmacy now that name has been updated in [facility] Consent for Treatmenton 03-25 Consent for Treatment [id number]#[id number] D:127 [facility] ANAon 04-10-2023 WILMA TITER <1:40 Normal <=1:40 [facility] Comment on above: Order Comment: By IF A Result Comment: Test performed using OMA IFA WILMA Hep-2 Test, a pre-standardized assay designed for the qualitative and semi-quantitative detection of antinuclear antibodies. Performed By: #### L [id number] #### [facility] ([facility] [place] [facility]) [address] [place] [address] C3 COMPLEMENTon 04-10-2023 Magnesium [Mass/Vol] 125.00 mg/dL Normal 79.00-152.00 [facility] Comment on above: Performed By: #### L [id number] #### [facility] ([facility]) [address] [place] [address] C4 COMPLEMENTon 04-10-2023 Magnesium [Mass/Vol] 21.8 mg/dL Normal 16-38 [facility] Comment on above: Performed By: #### L [id number] #### [facility] ([facility]) [address] [place] [address] CBC WITH AUTO DIFFERENTIALon 04-10-2023 Basophils (Bld) [#/Vol] 0.06 10*3/uL Normal 0.00-0.20 [facility] Comment on above: Performed By: #### L [id number] #### [facility] ([facility] [place] [facility]) [address] [place] [address] Basophils/100 WBC (Bld) 0.7 % Normal 0.0-1.0 [facility] Comment on above: Performed By: #### L [id number] #### [facility] ([facility] [place] [facility]) [address] [place] [address] Eosinophils (Bld) [#/Vol] 0.13 10*3/uL Normal 0.00-0.50 [facility] Comment on above: Performed By: #### L [id number] #### [facility] ([facility] [place] [facility]) [address] [place] [address] Eosinophils/100 WBC (Bld) 1.6 % Normal 0.0-6.0 [facility] Comment on above: Performed By: #### L [id number] #### [facility] ([facility] [place] [facility]) [address] [place] [address] Erythrocyte distribution width (RBC) [Ratio] 13.0 % Normal 11.5-15.0 [facility] Comment on above: Performed By: #### L [id number] #### [facility] ([facility]) [address] [place] [address] ERYTHROCYTE MEAN CORPUSCULAR HEMOGLOBIN CONCENTRATION (G/DL) BY AUTOMATED 33.4 g/dL Normal 32.0-35.0 [facility] Comment on above: Performed By: #### L [id number] #### [facility] ([facility]) [address] [place] [address] Hematocrit (Bld) [Volume fraction] 43.1 % Normal 36.0-48.0 [facility] Comment on above: Performed By: #### L [id number] #### [facility] ([facility]) [address] [place] [address] Hemoglobin (Bld) [Mass/Vol] 14.4 g/dL Normal 12.0-15.0 [facility] Comment on above: Performed By: #### L [id number] #### [facility] ([facility]) [address] [place] [address] Immature granulocytes (Bld) [#/Vol] 0.03 10*3/uL Normal 0.00-0.20 [facility] Comment on above: Performed By: #### L [id number] #### [facility] ([facility]) [address] [address] Immature granulocytes/100 WBC (Bld) 0.4 % Normal 0.0-1.0 [facility] Comment on above: Performed By: #### L [id number] #### [facility] ([facility] [place] [facility]) [address] [place] [address] Lymphocytes (Bld) [#/Vol] 1.79 10*3/uL Normal 1.20-4.00 [facility] Comment on above: Performed By: #### L [id number] #### [facility] ([facility]) [address] [place] [address] Lymphocytes/100 WBC (Bld) 21.8 % Normal 20.0-45.0 [facility] Comment on above: Performed By: #### L [id number] #### [facility] ([facility] [place] [facility]) [address] [place] [address] MCH (RBC) [Entitic mass] 28.5 pg Normal 27.0-33.0 [facility] Comment on above: Performed By: #### L [id number] #### [facility] ([facility] [place] [facility]) [address] [place] [address] MCV (RBC) [Entitic vol] 85.2 fL Normal 82.0-98.0 [facility] Comment on above: Performed By: #### L [id number] #### [facility] ([facility] [place]) [address] [place] [address] Monocytes (Bld) [#/Vol] 0.55 10*3/uL Normal 0.10-1.00 [facility] Comment on above: Performed By: #### L [id number] #### [facility] ([facility]) [address] [place] [address] Monocytes/100 WBC (Bld) 6.7 % Normal 5.0-12.0 [facility] Comment on above: Performed By: #### L [id number] #### [facility] ([facility]) [address] [place] [address] Neutrophils (Bld) [#/Vol] 5.65 10*3/uL Normal 1.60-7.60 [facility] Comment on above: Performed By: #### L [id number] #### [facility] ([facility]) [address] [place] [address] Neutrophils/100 WBC (Bld) 68.8 % Normal 40.0-72.0 [facility] Comment on above: Performed By: #### L [id number] #### [facility] ([facility]) [address] [place] [address] NRBC (PER 100 WBCS) BY AUTOMATED COUNT 0.0 % Normal 0 [facility] Comment on above: Performed By: #### L [id number] #### [facility] ([facility]) [address] [place] [address] PLATELETS (10*3/UL) IN BLOOD AUTOMATED COUNT 320 10*3/uL Normal 150-400 [facility] Comment on above: Performed By: #### L [id number] #### [facility] ([facility]) [address] [place] [address] RBC (Bld) [#/Vol] 5.06 10*6/uL High 3.80-5.00 [facility] Comment on above: Performed By: #### L [id number] #### [facility] ([facility]) [address] [place] [address] WBC (Bld) [#/Vol] 8.21 10*3/uL Normal 4.00-10.60 [facility] Comment on above: Performed By: #### L [id number] #### [facility] ([facility]) [address] [place] [address] COMPREHENSIVE METABOLIC PANE Philip 04-10-2023 Albumin [Mass/Vol] 4.7 g/dL Normal 3.5-5.7 [facility] Comment on above: Performed By: #### L [id number] #### [facility] ([facility]) [address] [place] [address] ALP [Catalytic activity/Vol] 74 U/L Normal 34-104 [facility] Comment on above: Performed By: #### L [id number] #### [facility] ([facility]) [address] [place] [address] ALT [Catalytic activity/Vol] 21 U/L Normal 7-52 [facility] Comment on above: Performed By: #### L [id number] #### [facility] ([facility] [place] [facility]) [address] [place] [address] Anion gap [Moles/Vol] 11 mmol/L Normal 7-20 [facility] Comment on above: Performed By: #### L [id number] #### [facility] ([facility]) [address] [place] [address] AST [Catalytic activity/Vol] 18 U/L Normal 13-39 [facility] Comment on above: Performed By: #### L [id number] #### [facility] ([facility] [place] [facility]) [address] [place] [address] Bilirubin [Mass/Vol] 0.6 mg/dL Normal 0.3-1.0 [facility] Comment on above: Performed By: #### L [id number] #### [facility] ([facility] [place] [facility]) [address] [place] [address] Calcium [Mass/Vol] 9.2 mg/dL Normal 8.6-10.3 [facility] Comment on above: Performed By: #### L [id number] #### [facility] ([facility] [place] [facility]) [address] [place] [address] Chloride [Moles/Vol] 106 mmol/L Normal 98-107 [facility] Comment on above: Performed By: #### L [id number] #### [facility] ([facility] [place] [facility]) [address] [place] [address] CO2 [Moles/Vol] 25 mmol/L Normal 21-31 [facility] Comment on above: Performed By: #### L [id number] #### [facility] ([facility] [place] [facility]) [address] [place] [address] Creatinine [Mass/Vol] 0.86 mg/dL Normal 0.60-1.20 [facility] Comment on above: Performed By: #### L [id number] #### [facility] ([facility]) [address] [place] [address] GLOMERULAR FILTRATION RATE ML/MIN/1.73 SQ M.PREDICTED 91.4 mL/min/1.73m*2 Normal >60.0 [facility] Comment on above: Result Comment: The [facility]???s estimated glomerular filtration rate (eGFR) will no [...] individuals. Performed By: #### L [id number] #### [facility] ([facility]) [address] [place] [address] Glucose [Mass/Vol] 80 mg/dL Normal 70-100 [facility] Comment on above: Performed By: #### L [id number] #### [facility] ([facility]) [address] [place] [address] Potassium [Moles/Vol] 3.8 mmol/L Normal 3.5-5.1 [facility] Comment on above: Performed By: #### L [id number] #### [facility] ([facility]) [address] [place] [address] Protein [Mass/Vol] 7.2 g/dL Normal 6.0-8.3 [facility] Comment on above: Performed By: #### L [id number] #### [facility] ([facility]) [address] [place] [address] Sodium [Moles/Vol] 138 mmol/L Normal 136-145 [facility] Comment on above: Performed By: #### L [id number] #### [facility] ([facility]) [address] [place] [address] Urea nitrogen [Mass/Vol] 12 mg/dL Normal 7-25 [facility] Comment on above: Performed By: #### L [id number] #### [facility] ([facility]) [address] [place] [address] UREA NITROGEN/CREATININE (MASS RATIO) IN SER/PLAS 14.0 Normal [facility] Comment on above: Performed By: #### L [id number] #### [facility] ([facility]) [address] [place] [address] EXTRACTABLE NUCLEAR ANTIGEN ANTIBODIESon 04-10-2023 ANTI SM AB Negative Normal [facility] Comment on above: Performed By: #### L [id number] #### [facility] ([facility]) [address] [place] [address] ANTI SM/ANTIRNP AB Negative Normal [facility] Comment on above: Performed By: #### L [id number] #### [facility] ([facility]) [address] [place] [address] Office Visiton 04-10-2023 Follow-up visit [id number] Jose Maria Avalos 1990 F Date Provider Department Center 04/10/2023 [facility]ian [facility] Family History Problem Relation Age of Onset Anxiety disorder Mother Arthritis Mother Depression Mother Alcohol abuse Father Cancer Father Alcohol abuse Sister Anxiety disorder Sister Arthritis Mother's Sister Arthritis Mother's Brother Arthritis Mother's Sister Family Status - Relation Status Age at Mother Father Sister Mother's Sister Mother's Brother Mother's Sister Level of Service:76606 [place] OFFICE/OUTPATIENT NEW MODERATE MDM 45-59 MINUTES (GC) Reason for Visit and Comments: New Patient [632] - Polyarthralgia Normal [facility] SJOGRENS SYNDROME ANTIBODIES A AND Bon 04-10-2023 VETO TO SSA (RO) ANTIBODY Negative Normal Negative [facility] Comment on above: Performed By: #### L [id number] #### [facility] ([facility] [place] [facility]) [address] [place] [address] VETO TO SSB (LA) ANTIBODY Negative Normal Negative [facility] Comment on above: Performed By: #### L [id number] #### [facility] ([facility] [place] [facility]) [address] [place] [address] URINALYSISon 04-10-2023 BILIRUBIN, TOTAL PRESENCE IN URINE Negative Normal Negative [facility] Comment on above: Performed By: #### L [id number] #### [facility] ([facility] [place]) [address] [place] [address] Clarity (U) Slightly Cloudy Abnormal Clear [facility] Comment on above: Performed By: #### L [id number] #### [facility] ([facility]) [address] [place] [address] Color (U) Yellow Normal Yellow [facility] Comment on above: Performed By: #### L [id number] #### [facility] ([facility]) [address] [place] [address] Glucose (U) [Mass/Vol] Negative Normal Negative [facility] Comment on above: Performed By: #### L [id number] #### [facility] ([facility]) [address] [place] [address] HEMOGLOBIN PRESENCE IN URINE Negative Normal Negative [facility] Comment on above: Performed By: #### L [id number] #### [facility] ([facility]) [address] [place] [address] Ketones Ql (U) Negative Normal Negative [facility] Comment on above: Performed By: #### L [id number] #### [facility] ([facility]) [address] [place] [address] LEUKOCYTE ESTERASE PRESENCE IN URINE BY TEST STRIP Negative Normal Negative [facility] Comment on above: Performed By: #### L [id number] #### [facility] ([facility]) [address] [place] [address] NITRITE PRESENCE IN URINE Negative Normal Negative [facility] Comment on above: Performed By: #### L [id number] #### [facility] ([facility]) [address] [place] [address] pH (U) 6.0 [pH] Normal 5.0-8.0 [facility] Comment on above: Performed By: #### L [id number] #### [facility] ([facility]) [address] [place] [address] Protein (U) [Mass/Vol] 30 mg/dL Abnormal Negative [facility] Comment on above: Performed By: #### L [id number] #### [facility] ([facility]) [address] [place] [address] Specific gravity (U) [Rel density] 1.026 High 1.015-1.020 [facility] Comment on above: Performed By: #### L [id number] #### [facility] ([facility]) [address] [place] [address] UROBILINOGEN (EU/DL) IN URINE 2.0 EU/dL Abnormal Negative [facility] Comment on above: Performed By: #### L [id number] #### [facility] ([facility]) [address] [place] [address] URINALYSIS MICROSCOPICon CASTS IN URINE Normal [facility] Comment on above: Performed By: #### L [id number] #### [facility] ([facility]) [address] [place] [address] CRYSTALS IN URINE Normal [facility] Comment on above: Performed By: #### L [id number] #### [facility] ([facility]) [address] [place] [address] MUCUS (#/HPF) IN URINE SEDIMENT Moderate Abnormal None Seen, Occasional, Few [facility] Comment on above: Performed By: #### L [id number] #### [facility] ([facility]) [address] [place] [address] RBC (#/HPF) IN URINE SEDIMENT 0-2 Abnormal None Seen [facility] Comment on above: Performed By: #### L [id number] #### [facility] ([facility]) [address] [place] [address] SQUAMOUS EPITHELIAL CELLS (#/HPF) IN URINE SEDIMENT Many Abnormal None Seen, Occasional [facility] Comment on above: Performed By: #### L [id number] #### [facility] ([facility]) [address] [place] [address] WBC (LEUKOCYTE) (#/HPF) IN URINE SEDIMENT 0-2 Abnormal None Seen [facility] Comment on above: Performed By: #### L [id number] #### [facility] ([facility]) [address] [place] [address] Physician Orderon 04-08-2023 Physician Order [id number] D:127 Normal [facility] WILMA EIA W/REFLEX 9 BIOMARKER Son 03-05-2023 WILMA Direct Negative Normal Negative [facility] Comment on above: Performed By: #### A [id number] #### [facility] [address] [place] [address] Dr. Altagracia Allen C-REACTIVE PROTEINS (HS)on 0 03-05-2023 C-Reactive Protein, Cardiac 2.96 mg/L Normal 0.00-3.00 [facility] Comment on above: Result Comment: Rela tive Risk for Future Cardiovascular Event Low <1.00 Average 1.00 - 3.00 High >3.00 Performed By: #### C RPHS #### [facility] [address] [place] [address] Dr. Altagracia Allen CYCLIC CITRULLINATED PEPTIDE AB (CCP)on 03-05-2023 CCP Antibodies IgG/IgA 4 units Normal 0-19 [facility] Comment on above: Result Comment: Nega tive <20 Weak positive 20 - 39 Moderate positive 40 - 59 Strong positive >59 Performed By: #### C CPAB #### [facility] [address] [place] [address] [address] Altagracia Allen HIV 1 AND 2 WITH REFLEXon HIV Screen 4th Generation wRfx Non-Reactive Normal Non Reactive [facility] Comment on above: Result Comment: HIV Negative HIV-1/HIV-2 antibodies and HIV-1 p24 antigen were NOT detected. There is no laboratory evidence of HIV infection. Performed By: #### H IV12 #### [facility] [address] [place] [address] Dr. Altagracia Allen MRI TSPINE WO CONon [...] MP PAIGE Date: 2023-03-05 14:38 Normal The [facility] RHEUMATOID FACTORon 03-05-20 23 RA Latex Turbid. <10.0 Normal <14.0 The [facility] Comment on above: Performed By: #### R F ####[facility] [address] [place], [place] [address]Dr. Altagracia Allen [facility] 14 mm/hr Normal <=20 [facility] Comment on above: Performed By: #### S EDR #### [facility] [address] [address] [address] Altagracia Allen HEMOGRAM AND PLATELon 2022 Hematocrit (Bld) [Volume fraction] 40.0 % Normal 36.0-48.0 [facility] Comment on above: Performed By: #### H H ####[facility] [address] [address]Dr. Altagracia Allen Hemoglobin (Bld) [Mass/Vol] 13.5 g/dL Normal 12.0-16.0 [facility] Comment on above: Performed By: #### H H ####[facility] [address] [address]Dr. Altagracia Allen MCH (RBC) [Entitic mass] 28.5 pg Normal 26.7-34.0 [facility] Comment on above: Performed By: #### H H ####[facility] [address] [address]Dr. Altagracia Allen MCHC (RBC) [Mass/Vol] 33.8 g/dL Normal 29.9-35.2 [facility] Comment on above: Performed By: #### H H ####[facility] [address] [id number]. Altagracia Allen MCV (RBC) [Entitic vol] 84.6 fL Normal 81.0-99.0 [facility] Comment on above: Performed By: #### H H ####[facility] [address] [id number] Allen PLT 271 103/ul Normal 150-450 [facility] Comment on above: Performed By: #### H H ####[facility] [address] [address]DrAlexx Allen RBC 4.73 106/ul Normal 4.20-5.40 [facility] Comment on above: Performed By: #### H H ####[facility] [address] [address]DrAlexx Allen WBC 8.0 103/ul Normal 4.0-11.0 [facility] Comment on above: Performed By: #### H H ####[facility] [address] [address]Dr. Altagracia Allen LIPID PROFILEon 02-25-2023 CHOL-HDL RATIO NORM SEE BELOW Normal [facility] Comment on above: Result Comment: 3.3 - 4.4 LOW RISK 4.4 - 7.1 AVERAGE RISK 7.1 - 11.0 MODERATE RISK >11.0 HIGH RISK Performed By: #### L IPID, [id number], CMP #### [facility] [address] [address] [address] Altagracia Allen Cholesterol [Mass/Vol] 175 mg/dL Normal <=200 [facility] Comment on above: Performed By: #### L IPID, [id number], CMP #### [facility] [address] [address] [address] Altagracia Allen Cholesterol in HDL [Mass/Vol] 29 mg/dL Critically low 40-60 [facility] Comment on above: Performed By: #### L IPID, [id number], CMP #### [facility] [address] [address] [address] Altagracia Allen Cholesterol in LDL [Mass/Vol] 127.2 mg/dL Normal [facility] Comment on above: Performed By: #### L IPID, [id number], CMP #### [facility] [address] [address] [address] Altagracia Allen Cholesterol.total/C holesterol in HDL [Mass ratio] 6.0 {ratio} Normal [facility] Comment on above: Performed By: #### L IPID, [id number], CMP #### [facility] [address] [address] [address] Altagracia Allen HDL NORMAL > or = 60 mg/dl - LO W CARDIOVASCULAR RISK <40 mg/dl - HIGH CARDIOVASCULAR RISK Normal [facility] Comment on above: Performed By: #### L IPID, [id number], CMP #### [facility] [address] [address] [address] Altagracia Allen LDL CALC NORMAL SEE BELOW Normal [facility] Comment on above: Result Comment: <100 mg/dl OPTIMAL 100 - 129 mg/dl NEAR OR ABOVE OPTIMAL 130 - 159 mg/dl BORDERLINE HIGH 160 - 189 mg/dl HIGH >190 mg/dl VERY HIGH Performed By: #### L IPID, [id number], CMP #### [facility] [address] [address] [address] Altagracia Allen Triglyceride [Mass/Vol] 94 mg/dL Normal <=150 [facility] Comment on above: Performed By: #### L IPID, [id number], CMP #### [facility] [address] [address] [address] Altagracia Allen VLDL CALC 18.8 mg/dL Normal [facility] Comment on above: Performed By: #### L IPID, [id number], CMP #### [facility] [address] [address] [address] Altagracia Allen PROF 14(COMP METB)on 023 Albumin [Mass/Vol] 3.6 g/dL Normal 3.4-5.0 [facility] Comment on above: Performed By: #### L IPID, [id number], CMP #### [facility] [address] [place] [address] Dr. Altagracia Allen Albumin/Globulin [Mass ratio] 1.1 {ratio} Normal [facility] Comment on above: Performed By: #### L IPID, [id number], CMP #### [facility] [address] [place] [address] Dr. Altagracia Allen ALP [Catalytic activity/Vol] 72 U/L Normal 46-116 [facility] Comment on above: Performed By: #### L IPID [id number], CMP #### [facility] [address] [place] [address] Dr. Altagracia Allen ALT [Catalytic activity/Vol] 27 U/L Normal 14-59 [facility] Comment on above: Performed By: #### L IPID, [id number], CMP #### [facility] [address] [place] [address] Dr. Altagracia Allen Anion gap [Moles/Vol] 13.8 mmol/L Normal [facility] Comment on above: Performed By: #### L IPID, [id number], CMP #### [facility] [address] [place] [address] Dr. Altagracia Allen AST [Catalytic activity/Vol] 17 U/L Normal 15-37 [facility] Comment on above: Performed By: #### L IPID, [id number], CMP #### [facility] [address] [place] [address] Dr. Altagracia Allen Bilirubin [Mass/Vol] 0.2 mg/dL Normal 0.2-1.0 [facility] Comment on above: Performed By: #### L IPID, [id number], CMP #### [facility] [address] [place] [address] Dr. Altagracia Allen Calcium [Mass/Vol] 8.6 mg/dL Normal 8.5-10.1 [facility] Comment on above: Performed By: #### L IPID, [id number], CMP #### [facility] [address] [address] [address] Altagracia Allen Chloride [Moles/Vol] 106 mmol/L Normal 98-107 [facility] Comment on above: Performed By: #### L IPID, [id number], CMP #### [facility] [address] [address] [address] Altagracia Allen CO2 [Moles/Vol] 23.7 mmol/L Normal 21.0-32.0 [facility] Comment on above: Performed By: #### L IPID, [id number], CMP #### [facility] [address] [place] [address] Dr. Altagracia Allen Creatinine [Mass/Vol] 0.76 mg/dL Normal 0.55-1.02 [facility] Comment on above: Performed By: #### L IPID, [id number], CMP #### [facility] [address] [place] [address] Dr. Altagracia Allen EGFR-AF ITALIAN >60 Normal >=60 [facility] Comment on above: Performed By: #### L IPID, [id number], CMP #### [facility] [address] [place] [address] Dr. Altagracia Allen EGFR-NON AF ITALIAN >60 Normal >=60 [facility] Comment on above: Performed By: #### L IPID, [id number], CMP #### [facility] [address] [address] [address] Altagracia Allen Globulin (S) [Mass/Vol] 3.4 g/dL Normal [facility] Comment on above: Performed By: #### L IPID, [id number], CMP #### [facility] [address] [place] [address] Dr. Altagracia Allen Glucose [Mass/Vol] 92 mg/dL Normal 74-106 [facility] Comment on above: Performed By: #### L IPID, [id number], CMP #### [facility] [address] [place] [address] Dr. Altagracia Allen Potassium [Moles/Vol] 3.5 mmol/L Normal 3.5-5.1 [facility] Comment on above: Performed By: #### L IPID, [id number], CMP #### [facility] [address] [place] [address] Dr. Altagracia Allen Protein [Mass/Vol] 7.0 g/dL Normal 6.4-8.2 [facility] Comment on above: Performed By: #### L IPID, [id number], CMP #### [facility] [address] [place] [address] Dr. Altagracia Allen Sodium [Moles/Vol] 140 mmol/L Normal 136-145 [facility] Comment on above: Performed By: #### L IPID, [id number], CMP #### [facility] [address] [place] [address] Dr. Altagracia Allen Urea nitrogen [Mass/Vol] 13.0 mg/dL Normal 7.0-18.0 [facility] Comment on above: Performed By: #### L IPID, [id number], CMP #### [facility] [address] [place] [address] Dr. Altagracia Allen Urea nitrogen/Creatinine [Mass ratio] 17.1 mg/mg Normal [facility] Comment on above: Performed By: #### L IPID, [id number], CMP #### [facility] [address] [place] [address] Dr. Altagracia Allen TSH W/ REFLEX TO FT4on 02-25 TSH 2.830 uIU/mL Normal 0.358-3.740 [facility] Comment on above: Performed By: #### L IPID, [id number], CMP #### [facility] [address] [place] [address] Dr. Altagracia Allen XR TSPINE 3 VIEWSon [...] MP PAIGE Date: 2023-02-14 07:59 Normal [facility] CBC W/DIFFon 01-23-2021 ABS BASOPHILS 0.1 10*3/uL Normal 0.0-0.2 [facility] Comment on above: Performed By: #### 5 0103 #### [facility] [address] ABS IMM GRANS 0.0 10*3/uL Normal 0.0-0.2 [facility] Comment on above: Performed By: #### 5 0103 #### [facility] [address] ABS NEUTROPHILS 4.9 10*3/uL Normal 1.6-7.[address] [facility] Comment on above: Performed By: #### 5 0103 #### [facility] [address] Basophils/100 WBC (Bld) 0.7 % Normal 0.0-1.0 The [facility] Comment on above: Performed By: #### 5 0103 #### [facility] [address] [place] [address], [facility] Eosinophils (Bld) [#/Vol] 0.3 10*3/uL Normal 0.0-0.5 The [facility] Comment on above: Performed By: #### 5 0103 #### [facility] [address] [place] [address], [facility] Eosinophils/100 WBC (Bld) 3.6 % Normal 0.0-6.0 The [facility] Comment on above: Performed By: #### 5 0103 #### [facility] [address] Erythrocyte distribution width (RBC) [Ratio] 13.2 % Normal 11.5-15.0 The [facility] Comment on above: Performed By: #### 5 0103 #### [facility] [address] [facility] [place] [address], [facility] Hematocrit (Bld) [Volume fraction] 44.2 % Normal 36.0-45.0 The [facility] Comment on above: Performed By: #### 0103 #### [facility] [address] Hemoglobin (Bld) [Mass/Vol] 14.4 g/dL Normal 12.0-15.0 The [facility] Comment on above: Performed By: #### 5 3 #### [facility] [address] IMMATURE GRANS 0.4 % Normal 0.0-1.0 [facility] Comment on above: Performed By: #### 3 #### [facility] [address] [place] [address], [facility] Lymphocytes (Bld) [#/Vol] 1.8 10*3/uL Normal 1.2-4.0 The [facility] Comment on above: Performed By: #### 5 0103 #### [facility] [address] [place] [address], [facility] Lymphocytes/100 WBC (Bld) 23.3 % Normal 20.0-45.0 The [facility] Comment on above: Performed By: #### 5 0103 #### [facility] [address] [place] [address], [facility] MCH (RBC) [Entitic mass] 29.1 pg Normal 27.0-33.0 The [facility] Comment on above: Performed By: #### 5 3 #### [facility] [address] MCHC (RBC) [Mass/Vol] 32.6 g/dL Normal 32.0-35.0 The [facility] Comment on above: Performed By: #### 5 0103 #### [facility] [address] [place] [address], [facility] MCV (RBC) [Entitic vol] 89.3 fL Normal 82.0-98.0 The [facility] Comment on above: Performed By: #### 5 0103 #### [facility] [address] [facility] [place] [address], [facility] Monocytes (Bld) [#/Vol] 0.6 10*3/uL Normal 0.1-1.0 The [facility] Comment on above: Performed By: #### 5 0103 #### [facility] [address] [facility] [place] [address], [facility] MONOS 7.6 % Normal 5.0-12.0 The [facility] Comment on above: Performed By: #### 5 0103 #### [facility] [address] [facility] [place] [address], [facility] Neutrophils/100 WBC (Bld) 64.4 % Normal 40.0-72.0 The [facility] Comment on above: Performed By: #### 5 0103 #### [facility] [address] [facility] [place] [address], [facility] Nucleated RBC/100 WBC (Bld) [Ratio] 0 % Normal 0-0 The [facility] Comment on above: Performed By: #### 5 0103 #### [facility] [address] [facility] [place] [address], [facility] PLAT CNT 264 10*3/uL Normal 150-400 The [facility] Comment on above: Performed By: #### 5 3 #### [facility] [address] [place] [address], [facility] RBC (Bld) [#/Vol] 4.95 10*6/uL Normal 3.80-5.00 The [facility] Comment on above: Performed By: #### 5 0103 #### [facility] [address] [facility]. [address] WBC (Bld) [#/Vol] 7.59 10*3/uL Normal 4.00-10.60 The [facility] Comment on above: Performed By: #### 5 0103 #### [facility] [address] COMP METABOLIC PANELon 01-23 Albumin [Mass/Vol] 4.4 g/dL Normal 3.5-5.7 The [facility] Comment on above: Performed By: #### 4 6413, 70987, 71239 #### [facility] [address] [facility] ALKALINE PHOSPH 64 IU/L Normal 34-104 The [facility] Comment on above: Performed By: #### 4 6413, 99102, 46319 #### [facility] [address] [facility]. [address] ALT [Catalytic activity/Vol] 13 U/L Normal 7-52 The [facility] Comment on above: Performed By: #### 4 6413, 09920, 98999 #### [facility] [address] [facility] AST [Catalytic activity/Vol] 14 U/L Normal 13-39 The [facility] Comment on above: Performed By: #### 4 6413, 93626, 62837 #### [facility] [address] [facility] [place] [address], [facility] Bilirubin [Mass/Vol] 0.4 mg/dL Normal 0.3-1.0 The [facility] Comment on above: Performed By: #### 4 6413, 12753, 27055 #### [facility] [address] [place] [address], [place] Calcium [Mass/Vol] 9.2 mg/dL Normal 8.6-10.3 [facility] Comment on above: Performed By: #### 4 6413, 04244, 33112 #### [facility] [address] [place] [address], [place] Chloride [Moles/Vol] 105 mmol/L Normal 98-107 The [facility] Comment on above: Performed By: #### 4 6413, 66912, 34572 #### [facility] [address] [place] [address], [place] CO2 [Moles/Vol] 28 mmol/L Normal 21-31 [facility] Comment on above: Performed By: #### 4 6413, 89682, 81903 #### [facility] [address] [place] [address], [place] Creatinine [Mass/Vol] 0.90 mg/dL Normal 0.60-1.20 The [facility] Comment on above: Performed By: #### 4 6413, 04757, 43224 #### [facility] [address] [place] [address], [place] GFR/1.73 sq M predicted among blacks MDRD (S/P/Bld) [Vol rate/Area] mL/min/{1.73_m2} Normal >60 The [facility] Comment on above: Performed By: #### 4 6413, 86522, 64839 #### [facility] [address] [place] [address], [place] GFR/1.73 sq M predicted among non-blacks MDRD (S/P/Bld) [Vol rate/Area] mL/min/{1.73_m2} Normal >60 The [facility] Comment on above: Performed By: #### 4 6413, 72576, 63676 #### [facility] [address] [place] [address], [place] Glucose [Mass/Vol] 86 mg/dL Normal 70-100 The [facility] Comment on above: Performed By: #### 4 6413, 27879, 31126 #### [facility] [address] [place] [address], [place] Potassium [Moles/Vol] 3.9 mmol/L Normal 3.5-5.1 The [facility] Comment on above: Performed By: #### 4 6413, 21668, 02346 #### [facility] [address] [place] [address], [place] Protein [Mass/Vol] 7.1 g/dL Normal 6.0-8.3 The [facility] Comment on above: Performed By: #### 4 6413, 66469, 17904 #### [facility] [address] [place] [address], [place] Sodium [Moles/Vol] 138 mmol/L Normal 136-145 The [facility] Comment on above: Performed By: #### 4 6413, 49277, 28675 #### [facility] [address] [place] [id number], [facility] Urea nitrogen [Mass/Vol] 11 mg/dL Normal 7-25 The [facility] Comment on above: Performed By: #### 4 6413, 38158, 02431 #### [facility] [address] [place] [address], [place] LIPID PROFILEon 01-23-2021 Cholesterol [Mass/Vol] 162 mg/dL Normal 120-200 The [facility] Comment on above: Result Comment: CHOL ESTEROL REFERENCE RANGE: 20 YEARS AND OLDER CARDIOVASCULAR RISK Less than 200 mg/dl Low Risk 200 to 239 mg/dl Borderline Risk 240 mg/dl and greater High Risk Performed By: #### 4 6413, 17901, 73364 #### [facility] [address] [place] [address], [place] Cholesterol in HDL [Mass/Vol] 38 mg/dL Normal 23-92 The [facility] Comment on above: Result Comment: Slig ht variation in normal range could be due to gender and/or age. HDL CHOLESTEROL REFERENCE RANGE: 20 years and older Cardiovascular Risk > or =60 mg/dL Desirable 40 TO 59 mg/dL Low Risk <40 mg/dL High Risk Performed By: #### 4 6413, 77912, 53108 #### [facility] [address] [place] [address], [place] Cholesterol in LDL [Mass/Vol] 111 mg/dL Normal 0-130 The [facility] Comment on above: Result Comment: LDL IS A CALCULATION LDL IS ONLY VALID IF THE TRIG IS LESS THAN 400. Performed By: #### 4 6413, 14216, 87625 #### [facility] [address] [place] [address], [place] Cholesterol.total/C holesterol in HDL [Mass ratio] 4.3 {ratio} Normal 0.0-4.5 The [facility] Comment on above: Performed By: #### 4 6413, 13545, 07278 #### [facility] [address] [place] [address], [place] NON-HDL CHOLESTEROL 124 mg/dL Normal The [facility] Comment on above: Performed By: #### 4 6413, 76095, 25916 #### [facility] [address] [place] [address], [place] Triglyceride [Mass/Vol] 66 mg/dL Normal 40-149 The [facility] Comment on above: Result Comment: TRIG LYCERIDE REFERENCE RANGE: 20 YEARS AND OLDER CARDIOVASCULAR RISK LESS THAN 150 mg/dl LOW RISK 150 TO 199 mg/dl BORDERLINE RISK 200 mg/dl AND GREATER HIGH RISK Performed By: #### 4 6413, 63459, 34008 #### [facility] [address] [place] [address], [place] VLDL CHOL 13 mg/dL Normal 0-40 The [facility] Comment on above: Performed By: #### 4 6413, 13298, 97518 #### [facility] [address] [place] [address], [facility] TSH3 WITH REFLEX FT4on 01-23 TSH 3RD GENERATION 1.73 uIU/mL Normal 0.34-5.60 The [facility] Comment on above: Performed By: #### 4 6413, 34563, 39210 #### [facility] [address] [facility] [place] [address], [facility] Encounters Encounter Date Encounter Type Care Provider Facility Start: 08-19-2024 ambulatory FE HAYLIE Not Availa ble Start: 08-17-2024 End: 08-17-[address]24 [address] C WINDNAGEL Not Available Start: 08-10-2024 End: 08-10-2024 Patient encounter procedure ANP-BC Ro Windnagel Work Phone: [facility] Work Phone: Start: 08-10-2024 End: 08-10-2024 ambulatory NON STAFF [facility] Work Phone: Start: 07-01-2024 End: 07-01-2024 ambulatory RO C WINDNAGEL Not Available Start: 06-25-2024 End: 06-25-2024 Patient encounter procedure ANP-BC Ro Windnagel Work Phone: [facility] Work Phone: Start: 06-25-2024 End: 06-25-2024 ambulatory NON STAFF [facility] Work Phone: Start: 06-08-2024 End: 06-08-[address]24 [address] RO C WINDNAGEL Not Available Start: 06-01-2024 End: 06-01-2024 amb[address] RO C WINDNAGEL Not Available Start: 05-31-2024 End: 05-31-2024 ambulatory RO C WINDNAGEL [facility] Start: 05-13-2024 End: 05-13-2024 [address] RO C WINDNAGEL Not Available Start: 04-29-2024 End: 04-29-2024 ambulatory RO PATEL Not Available Start: 02-17-2024 End: 02-17-2024 ambulatory BRUNO RYAN Not Available Start: 02-03-2024 End: 02-03-2024 ambulatory REMIGIO DORMAN Not Available Start: 07-08-2023 End: 07-09-2023 ambulatory Ro Windnagel Facility:[facility] [place] Start: 07-08-2023 End: 07-08-2023 Patient encounter procedure CAREN FULTON [facility] Start: 04-28-2023 ambulatory SAJAN SHAMMO Facility:[facility] [place] Start: 04-17-2023 End: 04-17-2023 ambulatory [facility] Start: 04-15-2023 End: 04-16-2023 ambulatory Ro Alexnamaged Facility:[facility] Start: 04-10-2023 End: 04-10-2023 ambulatory [facility] Start: 03-04-2023 End: 03-05-2023 ambulatory SAJAN SHAMMO Facility: Start: 03-01-2023 Encounter for genera l adult medical examination without abnormal findings SAJAN SHAMMO [facility] Start: 02-25-2023 End: 02-26-2023 ambulatory SAJAN [...] Category Payer Self-pay 2023 Unknown 1990 Unknown [id number] 2.16.84 0.1.609032.3.579.2.593 1989 Unknown [id number] 2.16.84 0.1.231511.3.579.2.593 1989 Unknown [id number] 2.16.84 0.1.955077.3.579.2.593 1989 Unknown [id number] 2.16.8 40.1.207077.3.579.2.727 1989 Unknown [id number] 2.16.8 40.1.879310.3.579.2.727 1989 Unknown [id number] 2.16.8 40.1.817476.3.579.2.727 1989 Unknown [id number] 2.16.8 40.1.808534.3.579.2.1286 1989 Unknown [id number] 2.16.84 0.1.691499.3.579.2.1259 1989 Unknown [id number] 2.16.84 0.1.928258.3.579.2.1259 1989 Unknown [id number] 2.16.84 0.1.879645.3.579.2.1259 1989 Unknown [id number] 2.16.84 0.1.725997.3.579.2.1259 1989 Unknown [id number] 2.16.84 0.1.238460.3.579.2.1259 1989 Unknown [id number] 2.16.84 0.1.009205.3.579.2.1259 1989 Unknown [id number] 2.16.84 0.1.295361.3.579.2.1259 1989 Unknown [id number] 2.16.84 0.1.172232.3.579.2.1259 1989 Unknown [id number] 2.16.84 0.1.117661.3.579.2.1259 1959 Unknown [id number] 1959 Unknown [id number] Unknown [id number] 2.16.8 40.1.346830.3.579.2.531 Unknown [id number] 2.16.8 40.1.163155.3.579.2.531 Social History Date Type Detail Facility Tobacco smoking status [facility] Sex Assigned At Female [facility] Start: 1990 Sex Assigned At Female [facility] Progress note 04-17-2023 Note Date & Type [...] remains due to follow up with her performance consultant. 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 [facility] Evaluation + Plan note Note Date & Type Note Facility Evaluation + Plan note No data available for this section [facility] Evaluation note Note Date & Type Note Facility Evaluation note [facility] Discharge instructions Note Date & Type Note Facility Hospital Discharge instructions No data available for this section [facility] Progress note Note Date & Type Note Facility Progress note No data available for this section [facility] Summary Purpose Family History No Family History [...] and content) DATE CREATED AUTHOR 03/09/2021 [facility] DATE CREATED AUTHOR AUTHOR'S ORGANIZ ATION 03/09/2023 [facility] DATE CREATED AUTHOR AUTHOR'S ORGANIZ ATION 07/10/2023 Osiel Santana [facility] DATE CREATED AUTHOR AUTHOR'S ORGANIZ ATION 08/16/2023 [facility] DATE CREATED AUTHOR AUTHOR'S ORGANIZ ATION 06/08/2024 [facility] DATE CREATED AUTHOR AUTHOR'S ORGANIZ ATION 08/16/2024 [facility] DATE CREATED AUTHOR AUTHOR'S ORGANIZ ATION 08/19/2024 [facility] EPIC Patient Care team [...] BE BASED ON THE PRIMARY CLINICAL RECORDS. [employer] provides no warranty or guarantee of the accuracy or completeness of information in this document.
[2024-08-24 11:10] LABS: Basophils Percent Auto 0.6 % (0.2-2.0); Eosinophils Absolute Auto 0.2 10^3/uL (0.0-0.7); Eosinophils Percent Auto 3.2 % (0.9-7.0); Hematocrit 38.3 % (36.0-48.0); Hemoglobin 12.9 g/dL (12.0-16.0); Immature Granulocytes Abs Auto 0.02 10^3/uL (0.00-0.03); Immature Granulocytes Pct Auto 0.3 % (0.0-0.5); Lymphocytes Absolute Auto 1.7 10^3/uL (1.2-3.8); Mean Corpuscular HGB Conc 33.7 g/dL (29.9-35.2); Mean Corpuscular Hemoglobin 29.4 pg (26.7-34.0); Mean Corpuscular Volume 87.2 fL (81.0-99.0); Mean Platelet Volume 11.1 fL (9.5-13.5); Monocytes Absolute Auto 0.4 10^3/uL (0.3-0.8); Monocytes Percent Auto 6.1 % (1.7-12.0); Neutrophils Absolute Auto 4.8 10^3/uL (1.4-6.5); Neutrophils Percent Auto 65.8 % (43.0-75.0); Platelet Count 256 10^3/uL (150-450); Red Blood Count 4.39 10^6/uL (4.20-5.40); Red Cell Distribution Width 12.8 % (11.0-15.0); White Blood Count 7.2 10^3/uL (4.0-11.0)
[2024-08-24 11:28] LABS: Estimated Average Glucose 94 mg/dL; Glycohemoglobin A1C 4.9 % (4.5-6.2)
[2024-08-24 11:38] LABS: Alanine Aminotransferase 19 U/L (14-59); Albumin Globulin Ratio 1.2; Albumin Level 3.7 g/dL (3.4-5.0); Alkaline Phosphatase 64 U/L (46-116); Anion Gap 10.8; Aspartate Amino Transferase 25 U/L (15-37); BUN Creatinine Ratio 9.7; Bilirubin Total 0.3 mg/dL (0.2-1.0); Calcium 8.9 mg/dL (8.5-10.1); Carbon Dioxide 26.4 mmol/L (21.0-32.0); Chloride 106 mmol/L (98-107); Chol HDL Ratio 4.4; Cholesterol 189 mg/dL (<=200); Estimated GFR (African America >60 (>=60); Estimated GFR (Non-African Ame >60 (>=60); Globulin 3.2 g/dL; Glucose 86 mg/dL (74-106); HDL Cholesterol 43 mg/dL (40-60); LDL Cholesterol Calculated 127.8 mg/dL; Potassium 4.2 mmol/L (3.5-5.1); Sodium 139 mmol/L (136-145); Thyroid Stimulating Hormone 1.189 uIU/mL (0.358-3.740); Total Protein 6.9 g/dL (6.4-8.2); Triglycerides 91 mg/dL (<=150); VLDL CHOLESTEROL 18.2 mg/dL
== END 2024-08-24 10:54 | disposition home or self-care (01) ==
LOC: LAB 10:54
PROVIDERS: PCP Nurse Practitioner Primary Care; Visit Provider Physician Assistant
DX: Z01.419 Encounter for gynecological examination (general) (routine) without abnormal findings (principal)
CPT/HCPCS: 36415; 80053; 80061; 83036; 84443; 85025

== ENCOUNTER 2024-08-24 16:34 | Outpatient (OUT) | payer BC, SELFPAY ==
--- OUTSIDE RECORDS SUMMARY | 2024-08-24 11:05 | XMS_ITS | CCD ---
Author Organization [facility] Care Team Providers Care Wash Worker Name Role Phone SHAMMO, SAJAN Admitting Unavailable [...] STAFF Primary Care Provider Unavailabl e Windnagel, TAILMAN-C Ro C Attending Provider NON STAFF Primary Care Unavailable Windnagel, Ro C Referring Unavailable Windnagel, Ro Admitting Unavailable Windnagel, Ro Attending Unavailable Windnagel, Ro C Admitting Unavailable [...] / guaiFENesin; Translations: [DEXTROMETHORPHAN- AIFENESIN] Drug Allergy [facility] Repository Problems Active Problems Problem Classification Problem [...] mri xrayon 08-10 XR pre/post mri xray [facility] [place] [place] [address] MRI Report Signed Patient: Kierra Natarajan MR#: [id number] 36 : 1990 Acct:[id number] Age/Sex: 33 / F ADM Date: 08/10/24 Loc: Room: Type: [facility] Attending Dr: Ro MAGDALENO Copies to: RASTA Arzola Ordering Provider: RASTA Arzola Date of Service: 08/10/24 MR/MR lumbar spine wo con: R26.9, M54.50, N39.489, R20.0 ([id number]) XR/XR pre/post mri xray: R26.9, M54.50, N39.489, [...] Eben Morel M.D.08/10/2024 8:33 AM Dictation Location: [place] [address] Transcribed By: [facility] 08/10/24 0833 Dictated By: Eben Morel DO 08/10/24 0828 Signed By: 08/10/24 0833 Normal [facility] MR cervical spine wo conon 0 06-25-2024 MR cervical spine wo con [facility] [place] [address] MRI Report Signed Patient: Kierra Natarajan MR#: [id number] 35 : 1990 Acct:[id number] Age/Sex: 33 / F ADM Date: 06/25/24 Loc: MR Room: Type: [facility] Attending Dr: Ro Patel Adult TAILMAN-BC Copies to: CAROLYN Arzola NP-C Ordering Provider: [...] Yung Jr., Blanca06/25/2024 6:59 PM Dictation Location: [place] [address] Transcribed By: [facility] 06/25/241858 Dictated By: Tony Yung Jr, DO 06/25/241852 Signed By: 06/25/241858 Normal [facility] Folate [Mass/Vol]on 05-31-20 FOLIC ACID 15.0 ng/mL Normal >5.8 [facility] Comment on above: Result Comment: NEW REFERENCE RANGE Performed By: #### 3 016-3, 2284-8, 2132-9, 39947-9 #### [facility] ([id number]) [address], [address] [place] [address] #### [id number] #### [facility] ([id number]) [address] [place] [address], [place] [address] Methylmalonate [Moles/Vol]on 05-31-2024 Methylmalonic Acid, QN, P 0.15 nmol/mL Normal <=0.40 [facility] Comment on above: Result Comment: NOTE ADDITIONAL INFORMATION This test was developed and its performance characteristics determined by [facility] in a manner consistent with CLIA requirements. This test has not been cleared or approved by the U.S. Food and Drug Administration. Test Performed by: [facility] [place] [id number] Manager Visual: Michele Lee Ph.D.; CLIA# [id number] Performed By: #### 3 016-3, 4-8, 9, 70227-4 #### [facility] ([id number]) [address] [place] [address], [address] [place] [address] #### [id number] #### [facility] ([id number]) [address] [place] [address] TSH Qnon 05-31-2024 TSH 2.81 uIU/mL Normal 0.49-4.67 [facility] Comment on above: Performed By: #### 3 016-3, 4-8, 9, 86711-9 #### [facility] ([id number]) [address] [place] [address], [address] [place] [address] #### [id number] #### [facility] ([id number]) [address] [place] [address] VITAMIN B12on 05-31-2024 Cobalamin (Vitamin B12) [Mass/Vol] 297 pg/mL Normal 180-914 [facility] Comment on above: Performed By: #### 3 016-3, 4-8, 9, 52570-9 #### [facility] ([id number]) [address] [place] [address], [address] [place] [address] #### [id number] #### [facility] ([id number]) [address] [place] [address] Vitamin D+Metabolites [Mass/ Vol]on 05-31-2024 VITAMIN D 25 HYD TOT 27.9 ng/mL Low 30-100 [facility] Comment on above: Result Comment: Vitamin D status 25 [place] Vitamin D Deficiency <20 ng/mL Insufficiency 20-29 ng/mL Sufficiency 30-100 ng/mL Toxicity >100 ng/mL NOTE: A pediatric reference range has not been established by the logistics program manager of this kit. The [place] [employer] recommends a Vitamin D level of = or >20ng/mL in infants and children. Performed By: #### 3 016-3, 2284-8, 2132-9, 05159-2 #### [facility] ([id number]) [address], [address] [place] [address] #### [id number] #### [facility] ([id number]) [address] [place] [address], [place] [address] MR BRAIN W AND WO CONTRAST ( [...] is going to have labs faxed over. [facility] Follow-Upon 04-17-2023 Follow-Up [id number] Philomena NATARAJAN 1990 F Date Provider Department Center 04/17/2023 [place] [facility] Lian He[facility] Family History Problem Relation Age of Onset Anxiety disorder Mother Arthritis Mother Depression Mother Alcohol abuse Father Cancer Father Alcohol abuse Sister Anxiety disorder Sister Arthritis Mother's Sister Arthritis Mother's Brother Arthritis Mother's Sister Family Status - Relation Status Age at Mother Father Sister Mother's Sister Mother's Brother Mother's Sister Level of Service:84589 OR OFFICE/OUTPATIENT ESTABLISHED MOD MDM 30-39 MIN () Reason for Visit and Comments: Follow-up [[id number]] - 2 week follow up [facility] Neurology Forms- Texton 03-25 Neurology Forms- Text [id number] D:127 [facility] 36on 04-15-2023 36 Spoke w/ pt and she states the pharmacy gave her the run around stating they did not receive her rx from 04/10/23, and could not tell her if rx was sent under maiden name Just to be ob the safe side can you approve a new rx w/ her correct name, now that it has been updated in [facility] 36 Pt left VM in office regarding her name change. She states rx may not have been sent under correct name. Pt needs called to verify what med/s need sent to her pharmacy now that name has been updated in [facility] Consent for Treatmenton 03-25 Consent for Treatment [id number] D:127 [facility] ANAon 04-10-2023 WILMA TITER <1:40 Normal <=1:40 [facility] Comment on above: Order Comment: By IF A Result Comment: Test performed using OMA IFA WILMA Hep-2 Test, a pre-standardized assay designed for the qualitative and semi-quantitative detection of antinuclear antibodies. Performed By: #### L [id number] #### [facility] ([facility]) [address] [place] [address] C3 COMPLEMENTon 04-10-2023 Magnesium [Mass/Vol] 125.00 mg/dL Normal 79.00-152.00 [facility] Comment on above: Performed By: #### L [id number] #### [facility] ([facility]) [address] [place] [address] C4 COMPLEMENTon 04-10-2023 Magnesium [Mass/Vol] 21.8 mg/dL Normal 16-38 [facility] Comment on above: Performed By: #### L [id number] #### [facility] ([facility]) [address] [place] [address] CBC WITH AUTO DIFFERENTIALon 04-10-2023 Basophils (Bld) [#/Vol] 0.06 10*3/uL Normal 0.00-0.20 [facility] Comment on above: Performed By: #### L [id number] #### [facility] ([facility]) [address] [place] [address] Basophils/100 WBC (Bld) 0.7 % Normal 0.0-1.0 [facility] Comment on above: Performed By: #### L [id number] #### [facility] ([facility]) [address] [place] [address] Eosinophils (Bld) [#/Vol] 0.13 10*3/uL Normal 0.00-0.50 [facility] Comment on above: Performed By: #### L [id number] #### [facility] ([facility]) [address] [place] [address] Eosinophils/100 WBC (Bld) 1.6 % Normal 0.0-6.0 [facility] Comment on above: Performed By: #### L [id number] #### [facility] ([facility]) [address] [place] [address] Erythrocyte distribution width (RBC) [Ratio] 13.0 % Normal 11.5-15.0 [facility] Comment on above: Performed By: #### L [id number] #### [facility] ([facility]) [address] [place] [address] ERYTHROCYTE MEAN CORPUSCULAR HEMOGLOBIN CONCENTRATION (G/DL) BY AUTOMATED 33.4 g/dL Normal 32.0-35.0 [facility] Comment on above: Performed By: #### L [id number] #### [facility] ([facility]) [address] [place] [address] Hematocrit (Bld) [Volume fraction] 43.1 % Normal 36.0-48.0 [facility] Comment on above: Performed By: #### L [id number] #### [facility] ([facility]) [address] [place] [address] Hemoglobin (Bld) [Mass/Vol] 14.4 g/dL Normal 12.0-15.0 [facility] Comment on above: Performed By: #### L [id number] #### [facility] ([facility]) [address] [place] [address] Immature granulocytes (Bld) [#/Vol] 0.03 10*3/uL Normal 0.00-0.20 [facility] Comment on above: Performed By: #### L [id number] #### [facility] ([facility]) [address] [place] [address] Immature granulocytes/100 WBC (Bld) 0.4 % Normal 0.0-1.0 [facility] Comment on above: Performed By: #### L [id number] #### [facility] ([facility]) [address] [place] [address] Lymphocytes (Bld) [#/Vol] 1.79 10*3/uL Normal 1.20-4.00 [facility] Comment on above: Performed By: #### L [id number] #### [facility] ([facility]) [address] [place] [address] Lymphocytes/100 WBC (Bld) 21.8 % Normal 20.0-45.0 [facility] Comment on above: Performed By: #### L [id number] #### [facility] ([facility]) [address] [place] [address] MCH (RBC) [Entitic mass] 28.5 pg Normal 27.0-33.0 [facility] Comment on above: Performed By: #### L [id number] #### [facility] ([facility]) [address] [place] [address] MCV (RBC) [Entitic vol] 85.2 fL Normal 82.0-98.0 [facility] Comment on above: Performed By: #### L [id number] #### [facility] ([facility]) [address] [place] [address] Monocytes (Bld) [#/Vol] 0.55 10*3/uL Normal 0.10-1.00 [facility] Comment on above: Performed By: #### L [id number] #### [facility] ([facility]) [address] [place] [address] Monocytes/100 WBC (Bld) 6.7 % Normal 5.0-12.0 [facility] Comment on above: Performed By: #### L [id number] #### [facility] ([facility]) [address] [place] [address] Neutrophils (Bld) [#/Vol] 5.65 10*3/uL Normal 1.60-7.60 [facility] Comment on above: Performed By: #### L [id number] #### [facility] ([facility]) [address] [place] [address] Neutrophils/100 WBC (Bld) 68.8 % Normal 40.0-72.0 [facility] Comment on above: Performed By: #### L [id number] #### [facility] ([facility]) [address] [place] [address] NRBC (PER 100 WBCS) BY AUTOMATED COUNT 0.0 % Normal 0 [facility] Comment on above: Performed By: #### L [id number] #### [facility] ([facility]) [address] [place] [address] PLATELETS (10*3/UL) IN BLOOD AUTOMATED COUNT 320 10*3/uL Normal 150-400 [facility] Comment on above: Performed By: #### L [id number] #### [facility] ([facility]) [address] [place] [address] RBC (Bld) [#/Vol] 5.06 10*6/uL High 3.80-5.00 [facility] Comment on above: Performed By: #### L [id number] #### [facility] ([facility]) [address] [place] [address] WBC (Bld) [#/Vol] 8.21 10*3/uL Normal 4.00-10.60 [facility] Comment on above: Performed By: #### L [id number] #### [facility] ([facility]) [address] [place] [address] COMPREHENSIVE METABOLIC PANE Philip 04-10-2023 Albumin [Mass/Vol] 4.7 g/dL Normal 3.5-5.7 [facility] Comment on above: Performed By: #### L [id number] #### [facility] ([facility]) [address] [place] [address] ALP [Catalytic activity/Vol] 74 U/L Normal 34-104 [facility] Comment on above: Performed By: #### L [id number] #### [facility] ([facility]) [address] [place] [address] ALT [Catalytic activity/Vol] 21 U/L Normal 7-52 [facility] Comment on above: Performed By: #### L [id number] #### [facility] ([facility]) [address] [place] [address] Anion gap [Moles/Vol] 11 mmol/L Normal 7-20 [facility] Comment on above: Performed By: #### L [id number] #### [facility] ([facility]) [address] [place] [address] AST [Catalytic activity/Vol] 18 U/L Normal 13-39 [facility] Comment on above: Performed By: #### L [id number] #### [facility] ([facility]) [address] [place] [address] Bilirubin [Mass/Vol] 0.6 mg/dL Normal 0.3-1.0 [facility] Comment on above: Performed By: #### L [id number] #### [facility] ([facility]) [address] [place] [address] Calcium [Mass/Vol] 9.2 mg/dL Normal 8.6-10.3 [facility] Comment on above: Performed By: #### L [id number] #### [facility] ([facility]) [address] [place] [address] Chloride [Moles/Vol] 106 mmol/L Normal 98-107 [facility] Comment on above: Performed By: #### L [id number] #### [facility] ([facility]) [address] [place] [address] CO2 [Moles/Vol] 25 mmol/L Normal 21-31 [facility] Comment on above: Performed By: #### L [id number] #### [facility] ([facility]) [address] [place] [address] Creatinine [Mass/Vol] 0.86 mg/dL Normal 0.60-1.20 [facility] Comment on above: Performed By: #### L [id number] #### [facility] ([facility]) [address] [place] [address] GLOMERULAR FILTRATION RATE ML/MIN/1.73 SQ M.PREDICTED 91.4 mL/min/1.73m*2 Normal >60.0 [facility] Comment on above: Result Comment: [facility]???s estimated glomerular filtration rate (eGFR) will no [...] individuals. Performed By: #### L [id number] #### [facility] ([facility]) [address] [place] [address] Glucose [Mass/Vol] 80 mg/dL Normal 70-100 [facility] Comment on above: Performed By: #### L [id number] #### [facility] ([facility]) [address] [place] [address] Potassium [Moles/Vol] 3.8 mmol/L Normal 3.5-5.1 [facility] Comment on above: Performed By: #### L [id number] #### [facility] ([facility]) [address] [place] [address] Protein [Mass/Vol] 7.2 g/dL Normal 6.0-8.3 [facility] Comment on above: Performed By: #### L [id number] #### [facility] ([facility]) [address] [place] [address] Sodium [Moles/Vol] 138 mmol/L Normal 136-145 [facility] Comment on above: Performed By: #### L [id number] #### [facility] ([facility]) [address] [place] [address] Urea nitrogen [Mass/Vol] 12 mg/dL Normal 7-25 [facility] Comment on above: Performed By: #### L [id number] #### [facility] ([facility]) [address] [place] [address] UREA NITROGEN/CREATININE (MASS RATIO) IN SER/PLAS 14.0 Normal [facility] Comment on above: Performed By: #### L [id number] #### [facility] ([facility]) [address] [place] [address] EXTRACTABLE NUCLEAR ANTIGEN ANTIBODIESon 04-10-2023 ANTI SM AB Negative Normal [facility] Comment on above: Performed By: #### L [id number] #### [facility] ([facility]) [address] [place] [address] ANTI SM/ANTIRNP AB Negative Normal Univer sity [facility] Comment on above: Performed By: #### L [id number] #### [facility] ([facility]) [address] [place] [address] Office Visiton 04-10-2023 Follow-up visit [id number] Jose Maria Avalos 1990 F Date Provider Department Center 04/10/2023 [place] [facility] Lian [facility] Family History Problem Relation Age of Onset Anxiety disorder Mother Arthritis Mother Depression Mother Alcohol abuse Father Cancer Father Alcohol abuse Sister Anxiety disorder Sister Arthritis Mother's Sister Arthritis Mother's Brother Arthritis Mother's Sister Family Status - Relation Status Age at Mother Father Sister Mother's Sister Mother's Brother Mother's Sister Level of Service:92130 OR OFFICE/OUTPATIENT NEW MODERATE MDM 45-59 MINUTES (GC) Reason for Visit and Comments: New Patient [632] - Polyarthralgia Normal [facility] SJOGRENS SYNDROME ANTIBODIES A AND Bon 04-10-2023 VETO TO SSA (RO) ANTIBODY Negative Normal Negative [facility] Comment on above: Performed By: #### L [id number] #### [facility] ([facility]) [address] [place] [address] VETO TO SSB (LA) ANTIBODY Negative Normal Negative [facility] Comment on above: Performed By: #### L [id number] #### [facility] ([facility]) [address] [place] [address] URINALYSISon 04-10-2023 BILIRUBIN, TOTAL PRESENCE IN URINE Negative Normal Negative [facility] Comment on above: Performed By: #### L [id number] #### [facility] ([facility]) [address] [place] [address] Clarity (U) Slightly Cloudy Abnormal Clear Universi [facility] Comment on above: Performed By: #### L [id number] #### [facility] ([facility]) [address] [place] [address] Color (U) Yellow Normal Yellow [facility] Comment on above: Performed By: #### L [id number] #### [facility] ([facility]) [address] [place] [address] Glucose (U) [Mass/Vol] Negative Normal Negative [facility] Comment on above: Performed By: #### L [id number] #### [facility] ([facility]) [address] [place] [address] HEMOGLOBIN PRESENCE IN URINE Negative Normal Negative [facility] Comment on above: Performed By: #### L [id number] #### [facility] ([facility]) [address] [place] [address] Ketones Ql (U) Negative Normal Negative [facility] Comment on above: Performed By: #### L [id number] #### [facility] ([facility]) [address] [place] [address] LEUKOCYTE ESTERASE PRESENCE IN URINE BY TEST STRIP Negative Normal Negative [facility] Comment on above: Performed By: #### L [id number] #### [facility] ([facility]) [address] [place] [address] NITRITE PRESENCE IN URINE Negative Normal Negative [facility] Comment on above: Performed By: #### L [id number] #### [facility] ([facility]) [address] [place] [address] pH (U) 6.0 [pH] Normal 5.0-8.0 [facility] Comment on above: Performed By: #### L [id number] #### [facility] ([facility]) [address] [place] [address] Protein (U) [Mass/Vol] 30 mg/dL Abnormal Negative [facility] Comment on above: Performed By: #### L [id number] #### [facility] ([facility]) [address] [place] [address] Specific gravity (U) [Rel density] 1.026 High 1.015-1.020 [facility] Comment on above: Performed By: #### L [id number] #### [facility] ([facility]) [address] [place] [address] UROBILINOGEN (EU/DL) IN URINE 2.0 EU/dL Abnormal Negative [facility] Comment on above: Performed By: #### L [id number] #### [facility] ([facility]) [address] [place] [address] URINALYSIS MICROSCOPICon CASTS IN URINE Normal [facility] Comment on above: Performed By: #### L [id number] #### [facility] ([facility]) [address] [place] [address] CRYSTALS IN URINE Normal [facility] Comment on above: Performed By: #### L [id number] #### [facility] ([facility]) [address] [place] [address] MUCUS (#/HPF) IN URINE SEDIMENT Moderate Abnormal None Seen, Occasional, Few [facility] Comment on above: Performed By: #### L [id number] #### [facility] ([facility]) [address] [place] [address] RBC (#/HPF) IN URINE SEDIMENT 0-2 Abnormal None Seen [facility] Comment on above: Performed By: #### L [id number] #### [facility] ([facility]) [address] [place] [address] SQUAMOUS EPITHELIAL CELLS (#/HPF) IN URINE SEDIMENT Many Abnormal None Seen, Occasional [facility] Comment on above: Performed By: #### L [id number] #### [facility] ([facility]) [address] [place] [address] WBC (LEUKOCYTE) (#/HPF) IN URINE SEDIMENT 0-2 Abnormal None Seen [facility] Comment on above: Performed By: #### L [id number] #### [facility] ([place]) [address] [place] [address] Physician Orderon 04-08-2023 Physician Order [id number] D:127 Normal [place] [facility] WILMA EIA W/REFLEX 9 BIOMARKER Son 03-05-2023 WILMA Direct Negative Normal Negative [facility] Comment on above: Performed By: #### A NARF9 #### [facility] [address] [place] [address] Dr. Altagracia Allen C-REACTIVE PROTEINS (HS)on 0 03-05-2023 C-Reactive Protein, Cardiac 2.96 mg/L Normal 0.00-3.00 [facility] Comment on above: Result Comment: Rela tive Risk for Future Cardiovascular Event Low <1.00 Average 1.00 - 3.00 High >3.00 Performed By: #### C RPHS #### [facility] [address] [place] [address] Dr. Altagracia Allen CYCLIC CITRULLINATED PEPTIDE AB (CCP)on 03-05-2023 CCP Antibodies IgG/IgA 4 units Normal 0-19 [facility] Comment on above: Result Comment: Nega tive <20 Weak positive 20 - 39 Moderate positive 40 - 59 Strong positive >59 Performed By: #### C CPAB #### [facility] [address] [place] [address] [address] Altagracia Allen HIV 1 AND 2 WITH REFLEXon HIV Screen 4th Generation wRfx Non-Reactive Normal Non Reactive [facility] Comment on above: Result Comment: HIV Negative HIV-1/HIV-2 antibodies and HIV-1 p24 antigen were NOT detected. There is no laboratory evidence of HIV infection. Performed By: #### H IV12 #### [facility] [address] [place] [address] Dr. Altagracia Allen MRI TSPINE WO CONon [...] MP PAIGE Date: 2023-03-05 14:38 Normal [facility] RHEUMATOID FACTORon 03-05-20 23 RA Latex Turbid. <10.0 Normal <14.0 [facility] Comment on above: Performed By: #### R F ####[facility] [address] [place], [place] [address]Dr. Altagracia Allen [facility] 14 mm/hr Normal <=20 [facility] Comment on above: Performed By: #### S EDR #### [facility] [address] [address] [address] Altagracia Allen HEMOGRAM AND PLATELon 2022 Hematocrit (Bld) [Volume fraction] 40.0 % Normal 36.0-48.0 [facility] Comment on above: Performed By: #### H H ####[facility] [address] [address]Dr. Altagracia Allen Hemoglobin (Bld) [Mass/Vol] 13.5 g/dL Normal 12.0-16.0 [facility] Comment on above: Performed By: #### H H ####[facility] [address] [address]Dr. Altagracia Allen MCH (RBC) [Entitic mass] 28.5 pg Normal 26.7-34.0 [facility] Comment on above: Performed By: #### H H ####[facility] [address] [address]Dr. Altagracia Allen MCHC (RBC) [Mass/Vol] 33.8 g/dL Normal 29.9-35.2 [facility] Comment on above: Performed By: #### H H ####[facility] [address] [id number]. Altagracia Allen MCV (RBC) [Entitic vol] 84.6 fL Normal 81.0-99.0 [facility] Comment on above: Performed By: #### H H ####[facility] [address] [id number] Allen PLT 271 103/ul Normal 150-450 [facility] Comment on above: Performed By: #### H H ####[facility] [address] [address]DrAlexx Allen RBC 4.73 106/ul Normal 4.20-5.40 [facility] Comment on above: Performed By: #### H H ####[facility] [address] [address]DrAlexx Allen WBC 8.0 103/ul Normal 4.0-11.0 [facility] Comment on above: Performed By: #### H H ####[facility] [address] [address]Dr. Altagracia Allen LIPID PROFILEon 02-25-2023 CHOL-HDL RATIO NORM SEE BELOW Normal [facility] Comment on above: Result Comment: 3.3 - 4.4 LOW RISK 4.4 - 7.1 AVERAGE RISK 7.1 - 11.0 MODERATE RISK >11.0 HIGH RISK Performed By: #### L IPID, [id number], CMP #### [facility] [address] [address] [address] Altagracia Allen Cholesterol [Mass/Vol] 175 mg/dL Normal <=200 [facility] Comment on above: Performed By: #### L IPID, [id number], CMP #### [facility] [address] [address] [address] Altagracia Allen Cholesterol in HDL [Mass/Vol] 29 mg/dL Critically low 40-60 [facility] Comment on above: Performed By: #### L IPID, [id number], CMP #### [facility] [address] [address] [address] Altagracia Allen Cholesterol in LDL [Mass/Vol] 127.2 mg/dL Normal [facility] Comment on above: Performed By: #### L IPID, TSHRFT4, CMP #### [facility] [address] [address] [address] Altagracia Allen Cholesterol.total/C holesterol in HDL [Mass ratio] 6.0 {ratio} Normal [facility] Comment on above: Performed By: #### L IPID, [id number], CMP #### [facility] [address] [address] [address] Altagracia Allen HDL NORMAL > or = 60 mg/dl - LO W CARDIOVASCULAR RISK <40 mg/dl - HIGH CARDIOVASCULAR RISK Normal [facility] Comment on above: Performed By: #### L IPID, [id number], CMP #### [facility] [address] [address] [address] Altagracia Allen LDL CALC NORMAL SEE BELOW Normal [facility] Comment on above: Result Comment: <100 mg/dl OPTIMAL 100 - 129 mg/dl NEAR OR ABOVE OPTIMAL 130 - 159 mg/dl BORDERLINE HIGH 160 - 189 mg/dl HIGH >190 mg/dl VERY HIGH Performed By: #### L IPID, [id number], CMP #### [facility] [address] [address] [address] Altagracia Allen Triglyceride [Mass/Vol] 94 mg/dL Normal <=150 [facility] Comment on above: Performed By: #### L IPID, [id number], CMP #### [facility] [address] [address] [address] Altagracia Allen VLDL CALC 18.8 mg/dL Normal [facility] Comment on above: Performed By: #### L IPID, [id number], CMP #### [facility] [address] [address] [address] Altagracia Allen PROF 14(COMP METB)on 023 Albumin [Mass/Vol] 3.6 g/dL Normal 3.4-5.0 [facility] Comment on above: Performed By: #### L IPID, TSHRFT4, CMP #### [facility] [address] [place] [address] Dr. Altagracia Allen Albumin/Globulin [Mass ratio] 1.1 {ratio} Normal [facility] Comment on above: Performed By: #### L IPID, [id number], CMP #### [facility] [address] [place] [address] Dr. Altagracia Allen ALP [Catalytic activity/Vol] 72 U/L Normal 46-116 [facility] Comment on above: Performed By: #### L IPID [id number], CMP #### [facility] [address] [place] [address] Dr. Altagracia Allen ALT [Catalytic activity/Vol] 27 U/L Normal 14-59 [facility] Comment on above: Performed By: #### L IPID, [id number], CMP #### [facility] [address] [place] [address] Dr. Altagracia Allen Anion gap [Moles/Vol] 13.8 mmol/L Normal [facility] Comment on above: Performed By: #### L IPID, [id number], CMP #### [facility] [address] [place] [address] Dr. Altagracia Allen AST [Catalytic activity/Vol] 17 U/L Normal 15-37 [facility] Comment on above: Performed By: #### L IPID, TSHRFT4, CMP #### [facility] [address] [place] [address] Dr. Altagracia Allen Bilirubin [Mass/Vol] 0.2 mg/dL Normal 0.2-1.0 [facility] Comment on above: Performed By: #### L IPID, TSHRFT4, CMP #### [facility] [address] [place] [address] Dr. Altagracia Allen Calcium [Mass/Vol] 8.6 mg/dL Normal 8.5-10.1 [facility] Comment on above: Performed By: #### L IPID, TSHRFT4, CMP #### [facility] [address] [address] [address] Altagracia Allen Chloride [Moles/Vol] 106 mmol/L Normal 98-107 [facility] Comment on above: Performed By: #### L IPID, TSHRFT4, CMP #### [facility] [address] [address] [address] Altagracia Allen CO2 [Moles/Vol] 23.7 mmol/L Normal 21.0-32.0 [facility] Comment on above: Performed By: #### L IPID, TSHRFT4, CMP #### [facility] [address] [place] [address] Dr. Altagracia Allen Creatinine [Mass/Vol] 0.76 mg/dL Normal 0.55-1.02 [facility] Comment on above: Performed By: #### L IPID, TSHRFT4, CMP #### [facility] [address] [place] [address] Dr. Altagracia Allen EGFR-AF CYMRO >60 Normal >=60 [facility] Comment on above: Performed By: #### L IPID, [id number], CMP #### [facility] [address] [place] [address] Dr. Altagracia Allen EGFR-NON AF CYMRO >60 Normal >=60 [facility] Comment on above: Performed By: #### L IPID, TSHRFT4, CMP #### [facility] [address] [address] [address] Altagarcia Allen Globulin (S) [Mass/Vol] 3.4 g/dL Normal [facility] Comment on above: Performed By: #### L IPID, TSHRFT4, CMP #### [facility] [address] [place] [address] Dr. Altagracia Allen Glucose [Mass/Vol] 92 mg/dL Normal 74-106 [facility] Comment on above: Performed By: #### L IPID, TSHRFT4, CMP #### [facility] [address] [place] [address] Dr. Altagracia Allen Potassium [Moles/Vol] 3.5 mmol/L Normal 3.5-5.1 [facility] Comment on above: Performed By: #### L IPID, [id number], CMP #### [facility] [address] [place] [address] Dr. Altagracia Allen Protein [Mass/Vol] 7.0 g/dL Normal 6.4-8.2 [facility] Comment on above: Performed By: #### L IPID, TSHRFT4, CMP #### [facility] [address] [place] [address] Dr. Altagracia Allen Sodium [Moles/Vol] 140 mmol/L Normal 136-145 [facility] Comment on above: Performed By: #### L IPID, TSHRFT4, CMP #### [facility] [address] [place] [address] Dr. Altagracia Allen Urea nitrogen [Mass/Vol] 13.0 mg/dL Normal 7.0-18.0 [facility] Comment on above: Performed By: #### L IPID, TSHRFT4, CMP #### [facility] [address] [place] [address] Dr. Altagracia Allen Urea nitrogen/Creatinine [Mass ratio] 17.1 mg/mg Normal [facility] Comment on above: Performed By: #### L IPID, TSHRFT4, CMP #### [facility] [address] [place] [address] Dr. Altagracia Allen TSH W/ REFLEX TO FT4on 02-25 TSH 2.830 uIU/mL Normal 0.358-3.740 [facility] Comment on above: Performed By: #### L IPID, [id number], CMP #### [facility] [address] [place] [address] Dr. Altagracia Allen XR TSPINE 3 VIEWSon [...] MP PAIGE Date: 2023-02-14 07:59 Normal [facility] CBC W/DIFFon 01-23-2021 ABS BASOPHILS 0.1 10*3/uL Normal 0.0-0.2 [facility] Comment on above: Performed By: #### 5 0103 #### [facility] [address] ABS IMM GRANS 0.0 10*3/uL Normal 0.0-0.2 [facility] Comment on above: Performed By: #### 5 0103 #### [facility] [address] ABS NEUTROPHILS 4.9 10*3/uL Normal 1.6-7.6 [facility] Comment on above: Performed By: #### 5 0103 #### [facility] [address] Basophils/100 WBC (Bld) 0.7 % Normal 0.0-1.0 [facility] Comment on above: Performed By: #### 5 0103 #### [facility] [address] [place] [address], [facility] Eosinophils (Bld) [#/Vol] 0.3 10*3/uL Normal 0.0-0.5 [facility] Comment on above: Performed By: #### 5 0103 #### [facility] [address] [place] [address], [facility] Eosinophils/100 WBC (Bld) 3.6 % Normal 0.0-6.0 [facility] Comment on above: Performed By: #### 5 0103 #### [facility] [address] Erythrocyte distribution width (RBC) [Ratio] 13.2 % Normal 11.5-15.0 [facility] Comment on above: Performed By: #### 5 0103 #### [facility] [address] [facility] [place] [place] [address], [facility] Hematocrit (Bld) [Volume fraction] 44.2 % Normal 36.0-45.0 [facility] Comment on above: Performed By: #### 0103 #### [facility] [address] Hemoglobin (Bld) [Mass/Vol] 14.4 g/dL Normal 12.0-15.0 [facility] Comment on above: Performed By: #### 5 3 #### [facility] [address] IMMATURE GRANS 0.4 % Normal 0.0-1.0 [facility] Comment on above: Performed By: #### 3 #### [facility] [address] [place] [address], [facility] Lymphocytes (Bld) [#/Vol] 1.8 10*3/uL Normal 1.2-4.0 [facility] Comment on above: Performed By: #### 5 0103 #### [facility] [address] [facility] [place] [address], [facility] Lymphocytes/100 WBC (Bld) 23.3 % Normal 20.0-45.0 [facility] Comment on above: Performed By: #### 5 0103 #### [facility] [address] [facility] [place] [address], [facility] MCH (RBC) [Entitic mass] 29.1 pg Normal 27.0-33.0 [facility] Comment on above: Performed By: #### 5 3 #### [facility] [address] MCHC (RBC) [Mass/Vol] 32.6 g/dL Normal 32.0-35.0 [facility] Comment on above: Performed By: #### 5 0103 #### [facility] [address] [place] [address], [facility] MCV (RBC) [Entitic vol] 89.3 fL Normal 82.0-98.0 [facility] Comment on above: Performed By: #### 5 0103 #### [facility] [address] [facility] [place] [place] [address], [facility] Monocytes (Bld) [#/Vol] 0.6 10*3/uL Normal 0.1-1.0 [facility] Comment on above: Performed By: #### 5 0103 #### [facility] [address] [facility] [place] [address], [facility] MONOS 7.6 % Normal 5.0-12.0 [facility] Comment on above: Performed By: #### 5 0103 #### [facility] [address] [facility] [place] [address], [facility] Neutrophils/100 WBC (Bld) 64.4 % Normal 40.0-72.0 [facility] Comment on above: Performed By: #### 5 0103 #### [facility] [address] [facility] [place] [address], [facility] Nucleated RBC/100 WBC (Bld) [Ratio] 0 % Normal 0-0 [facility] Comment on above: Performed By: #### 5 0103 #### [facility] [address] [facility] [place] [place] [address], [facility] PLAT CNT 264 10*3/uL Normal 150-400 [facility] Comment on above: Performed By: #### 5 3 #### [facility] [address] [place] [address], [facility] RBC (Bld) [#/Vol] 4.95 10*6/uL Normal 3.80-5.00 [facility] Comment on above: Performed By: #### 5 0103 #### [facility] 3000 [facility]. [address] WBC (Bld) [#/Vol] 7.59 10*3/uL Normal 4.00-10.60 [facility] Comment on above: Performed By: #### 5 0103 #### [facility] [address] COMP METABOLIC PANELon 01-23 Albumin [Mass/Vol] 4.4 g/dL Normal 3.5-5.7 [facility] Comment on above: Performed By: #### 4 6413, 93801, 31203 #### [facility] [address] [facility] [address] ALKALINE PHOSPH 64 IU/L Normal 34-104 [facility] Comment on above: Performed By: #### 4 6413, 12130, 99284 #### [facility] 3000 [facility]. [address] ALT [Catalytic activity/Vol] 13 U/L Normal 7-52 [facility] Comment on above: Performed By: #### 4 6413, 33762, 32857 #### [facility] [address] [facility] [address] AST [Catalytic activity/Vol] 14 U/L Normal 13-39 [facility] Comment on above: Performed By: #### 4 6413, 48451, 58743 #### [facility] [address] [facility] [place] [place] [address], [facility] Bilirubin [Mass/Vol] 0.4 mg/dL Normal 0.3-1.0 [facility] Comment on above: Performed By: #### 4 6413, 79403, 50439 #### [facility] [address] [place] [address], [place] Calcium [Mass/Vol] 9.2 mg/dL Normal 8.6-10.3 [facility] Comment on above: Performed By: #### 4 6413, 29897, 02536 #### [facility] [address] [place] [address], [place] Chloride [Moles/Vol] 105 mmol/L Normal 98-107 [facility] Comment on above: Performed By: #### 4 6413, 29562, 87077 #### [facility] [address] [place] [address], [place] CO2 [Moles/Vol] 28 mmol/L Normal 21-31 [facility] Comment on above: Performed By: #### 4 6413, 56725, 10249 #### [facility] [address] [place] [address], [place] Creatinine [Mass/Vol] 0.90 mg/dL Normal 0.60-1.20 [facility] Comment on above: Performed By: #### 4 6413, 75673, 30667 #### [facility] [address] [place] [address], [place] GFR/1.73 sq M predicted among blacks MDRD (S/P/Bld) [Vol rate/Area] mL/min/{1.73_m2} Normal >60 [facility] Comment on above: Performed By: #### 4 6413, 44871, 16889 #### [facility] [address] [place] [address], [place] GFR/1.73 sq M predicted among non-blacks MDRD (S/P/Bld) [Vol rate/Area] mL/min/{1.73_m2} Normal >60 [facility] Comment on above: Performed By: #### 4 6413, 34589, 18418 #### [facility] [address] [place] [address], [place] Glucose [Mass/Vol] 86 mg/dL Normal 70-100 [facility] Comment on above: Performed By: #### 4 6413, 81436, 79666 #### [facility] [address] [place] [address], [place] Potassium [Moles/Vol] 3.9 mmol/L Normal 3.5-5.1 [facility] Comment on above: Performed By: #### 4 6413, 50157, 99984 #### [facility] [address] [place] [address], [place] Protein [Mass/Vol] 7.1 g/dL Normal 6.0-8.3 [facility] Comment on above: Performed By: #### 4 6413, 85770, 11250 #### [facility] [address] [place] [address], [place] Sodium [Moles/Vol] 138 mmol/L Normal 136-145 [facility] Comment on above: Performed By: #### 4 6413, 31419, 02424 #### [facility] [address] [place] [id number], [facility] Urea nitrogen [Mass/Vol] 11 mg/dL Normal 7-25 [facility] Comment on above: Performed By: #### 4 6413, 62922, 54072 #### [facility] [address] [place] [address], [place] LIPID PROFILEon 01-23-2021 Cholesterol [Mass/Vol] 162 mg/dL Normal 120-200 [facility] Comment on above: Result Comment: CHOL ESTEROL REFERENCE RANGE: 20 YEARS AND OLDER CARDIOVASCULAR RISK Less than 200 mg/dl Low Risk 200 to 239 mg/dl Borderline Risk 240 mg/dl and greater High Risk Performed By: #### 4 6413, 16065, 54156 #### [facility] [address] [place] [address], [place] Cholesterol in HDL [Mass/Vol] 38 mg/dL Normal 23-92 [facility] Comment on above: Result Comment: Slig ht variation in normal range could be due to gender and/or age. HDL CHOLESTEROL REFERENCE RANGE: 20 years and older Cardiovascular Risk > or =60 mg/dL Desirable 40 TO 59 mg/dL Low Risk <40 mg/dL High Risk Performed By: #### 4 6413, 74078, 68787 #### [facility] [address] [place] [address], [place] Cholesterol in LDL [Mass/Vol] 111 mg/dL Normal 0-130 [facility] Comment on above: Result Comment: LDL IS A CALCULATION LDL IS ONLY VALID IF THE TRIG IS LESS THAN 400. Performed By: #### 4 6413, 44661, 80580 #### [facility] [address] [place] [address], [place] Cholesterol.total/C holesterol in HDL [Mass ratio] 4.3 {ratio} Normal 0.0-4.5 [facility] Comment on above: Performed By: #### 4 6413, 04809, 99891 #### [facility] [address] [place] [address], [place] NON-HDL CHOLESTEROL 124 mg/dL Normal [facility] Comment on above: Performed By: #### 4 6413, 74784, 64004 #### [facility] [address] [place] [address], [place] Triglyceride [Mass/Vol] 66 mg/dL Normal 40-149 [facility] Comment on above: Result Comment: TRIG LYCERIDE REFERENCE RANGE: 20 YEARS AND OLDER CARDIOVASCULAR RISK LESS THAN 150 mg/dl LOW RISK 150 TO 199 mg/dl BORDERLINE RISK 200 mg/dl AND GREATER HIGH RISK Performed By: #### 4 6413, 46314, 72382 #### [facility] [address] [place] [address], [place] VLDL CHOL 13 mg/dL Normal 0-40 [facility] Comment on above: Performed By: #### 4 6413, 61289, 50936 #### [facility] [address] [place] [address], [facility] TSH3 WITH REFLEX FT4on 01-23 TSH 3RD GENERATION 1.73 uIU/mL Normal 0.34-5.60 The [facility] Comment on above: Performed By: #### 4 6413, 78577, 10768 #### [facility] [address] [facility] [place] [address], [facility] Encounters Encounter Date Encounter Type Care Provider Facility Start: 08-19-2024 ambulatory EF HAYLIE Not Availa ble Start: 08-17-2024 End: 08-17-2024 [address] C WINDNAGEL Not Available Start: 08-10-2024 End: 08-10-2024 Patient encounter procedure ANP-BC Ro Windnagel Work Phone: [facility] [place] Work Phone: Start: 08-10-2024 End: 08-10-2024 ambulatory NON STAFF [facility] Work Phone: Start: 07-01-2024 End: 07-01-2024 ambulatory RO C WINDNAGEL Not Available Start: 06-25-2024 End: 06-25-2024 Patient encounter procedure ANP-BC Ro Windnagel Work Phone: [facility] [place] Work Phone: Start: 06-25-2024 End: 06-25-2024 ambulatory NON STAFF [facility] Work Phone: Start: 06-08-2024 End: 06-08-2024 amb[address] RO C WINDNAGEL Not Available Start: 06-01-2024 End: 06-01-2024 ambulatory RO C WINDNAGEL Not Available Start: 05-31-2024 End: 05-31-2024 ambulatory RO C WINDNAGEL [facility] Start: 05-13-2024 End: 05-13-2024 ambulatory RO C WINDNAGEL Not Available Start: 04-29-2024 End: 04-29-2024 ambulatory RO PATEL Not Available Start: 02-17-2024 End: 02-17-2024 ambulatory BRUNO RYAN Not Available Start: 02-03-2024 End: 02-03-2024 ambulatory REMIGIO DORMAN Not Available Start: 07-08-2023 End: 07-09-2023 ambulatory Ro Windnagel Facility:[facility] [place] Start: 07-08-2023 End: 07-08-2023 Patient encounter procedure CAREN FULTON [facility] Start: 04-28-2023 ambulatory SAJAN SHAMMO Facility:[facility] [place] Start: 04-17-2023 End: 04-17-[address] [facility] Start: 04-15-2023 End: 04-16-2023 ambulatory Ro Aelxnamaged [facility] Start: 04-10-2023 End: 04-10-[address] [facility] Start: 03-04-2023 End: 03-05-2023 ambulatory SAJAN SHAMMO Facility: Start: 03-01-2023 Encounter for genera l adult medical examination without abnormal findings SAJAN SHAMMO [facility] Start: 02-25-2023 End: 02-26-2023 ambulatory SAJAN SHAMMO [...] Category Payer Self-pay 2023 Unknown 1989 Unknown [id number] 2.16.84 [id number] 1989 Unknown [id number] 2.16.84 0.1.392629.3.579.2.593 1989 Unknown [id number] 2.16.84 0.1.818161.3.579.2.593 1989 Unknown [id number] 2.16.8 40.1.548359.3.579.2.727 1989 Unknown [id number] 2.16.8 40.1.098206.3.579.2.727 1989 Unknown [id number] 2.16.8 40.1.006585.3.579.2.727 1989 Unknown [id number] 2.16.8 40.1.820668.3.579.2.1286 1989 Unknown [id number] 2.16.84 0.1.521449.3.579.2.1259 1989 Unknown [id number] 2.16.84 0.1.549055.3.579.2.1259 1989 Unknown [id number] 2.16.84 0.1.063576.3.579.2.1259 1989 Unknown [id number] 2.16.84 0.1.319136.3.579.2.1259 1989 Unknown [id number] 2.16.84 0.1.778429.3.579.2.1259 1989 Unknown [id number] 2.16.84 0.1.272401.3.579.2.1259 1989 Unknown [id number] 2.16.84 0.1.041701.3.579.2.1259 1989 Unknown [id number] 2.16.84 0.1.357834.3.579.2.1259 1989 Unknown [id number] 2.16.84 0.1.471536.3.579.2.1259 1959 Unknown [id number] 1959 Unknown [id number] Unknown [id number] 2.16.8 40.1.582614.3.579.2.531 Unknown [id number] 2.16.8 40.1.732624.3.579.2.531 Social History Date Type Detail Facility Tobacco smoking status [facility] Sex Assigned At Female [facility] [facility] Start: 1990 Sex Assigned At Female [facility] Progress note 04-17-2023 Note Date & Type [...] remains due to follow up with her ramp service man. The episcleritis of her right eye has [...] - suggested she seek evaluation by an ramp service man for her episcleritis; currently no significant extraintestinal [...] Dr. 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 [facility] Evaluation + Plan note Note Date & Type Note Facility Evaluation + Plan note No data available for this section [facility] Evaluation note Note Date & Type Note Facility [facility] Dis[facility] instructions Note Date & Type Note Facility Hospital Discharge instructions No data available for this section [facility] Progress note Note Date & Type Note Facility Progress note No data available for this section [facility] Summary Purpose Family History No Family History [...] and content) DATE CREATED AUTHOR 03/09/2021 [facility] DATE CREATED AUTHOR AUTHOR'S ORGANIZ ATION 03/09/2023 [facility] DATE CREATED AUTHOR AUTHOR'S ORGANIZ ATION 07/10/2023 Osiel Santana [facility] DATE CREATED AUTHOR AUTHOR'S ORGANIZ ATION 08/16/2023 [facility] DATE CREATED AUTHOR AUTHOR'S ORGANIZ ATION 06/08/2024 [facility] DATE CREATED AUTHOR AUTHOR'S ORGANIZ ATION 08/16/2024 [facility] DATE CREATED AUTHOR AUTHOR'S ORGANIZ ATION 08/19/2024 [facility] EPIC Patient Care team informatio [...] BE BASED ON THE PRIMARY CLINICAL RECORDS. [employer] provides no warranty or guarantee of the accuracy or completeness of information in this document.
--- NOTE | 2024-08-24 16:37 | US_ITS ---
The [address] [address] Patient Name: KIERRA HAIRSTON MRN: [id number] date: 1990 Sex: F Assigned Patient Location: US Current Patient Location: Accession/Order Number: [id number] Exam Date: 08/24/2024 16:45 Report Date: 08/25/2024 07:11 At the request of: FE STALLINGS Procedure: US pelvis w/ transvaginal EXAMINATION: US pelvis w/ transvaginal HISTORY: Irregular Periods, N92.6 COMPARISON: No relevant comparison available. FINDINGS: The uterus is retroverted. Uterus measures 7.9 x 4.5 x 5.8 cm. 7 mm area of hypoechogenicity within the body of the myometrium The endometrium measures 7.7 mm, within normal limits. Area of anechoic echogenicity cervix measuring 3 mm, nabothian cyst is favored. The right ovary is normal measuring 3.6 x 2.0 x 2.2 cm. Normal color and Doppler flow The left ovary is normal measuring 3.8 x 2.0 x 3.3 cm. Normal color and Doppler flow No ascites US/US pelvis w/ transvaginal IMPRESSION: 7 mm myometrial lesion, a fibroid is favored Electronically authenticated by: ELSIE BAJWA Date: 08/25/2024 07:11
--- OUTSIDE RECORDS SUMMARY | 2024-08-24 16:40 | XMS_ITS | CCD ---
Author Organization [facility] Care Team Providers Care Drill Rig Operator Name Role Phone SHAMMO, SAJAN Admitting Unavailable [...] Care Unavailable Windnagel, ANP-BC Ro Attending Provider [phone] NON STAFF Primary Care Provider Unavailabl e Windnagel, QUALITY PROCESS ENGINEER-C Ro C Attending Provider [phone] NON STAFF Primary Care Unavailable Windnagel, Ro [...] / guaiFENesin; Translations: [DEXTROMETHORPHAN- AIFENESIN] Drug Allergy [facility] Repository Problems Active Problems Problem [...] mri xrayon 08-10 XR pre/post mri xray [facility] [place] [address] MRI Report Signed Patient: Kierra Natarajan MR#: [id number] 35 : 1990 Acct:[id number] Age/Sex: 33 / F ADM Date: 08/10/24 Loc: Room: Type: [facility] Attending Dr: Ro MAGDALENO Copies to: RASTA Arzola Ordering Provider: RASTA Arzola Date of Service: 08/10/24 MR/MR lumbar spine wo con: R26.9, M54.50, N39.489, R20.0 ([id number]) XR/XR pre/post mri xray: R26.9, M54.50, N39.489, [...] Eben Morel M.D.08/10/2024 8:33 AM Dictation Location: [place] [address] Transcribed By: [facility] 08/10/24 0833 Dictated By: Eben Morel DO 08/10/24 0828 Signed By: 08/10/24 0833 Normal [facility] MR cervical spine wo conon 0 06-25-2024 MR cervical spine wo con [facility] [place] [address] MRI Report Signed Patient: Kierra Natarajan MR#: [id number] 35 : 1990 Acct:[id number] Age/Sex: 33 / F ADM Date: 06/25/24 Loc: MR Room: Type: [facility] Attending Dr: Ro Patel Adult QUALITY PROCESS ENGINEER-BC Copies to: CAROLYN Arzola NP-C Ordering Provider: [...] Yung Jr., Blanca06/25/2024 6:59 PM Dictation Location: [place] [address] Transcribed By: [facility] 06/25/241858 Dictated By: Tony Yung Jr, DO 06/25/241852 Signed By: 06/25/241858 Normal [facility] Folate [Mass/Vol]on 05-31-20 FOLIC ACID 15.0 ng/mL Normal >5.8 [facility] Comment on above: Result Comment: NEW REFERENCE RANGE Performed By: #### 3 016-3, 2284-8, 2132-9, 32810-9 #### [facility] ([id number]) [address], [address] [place] [address] #### 32148-6 #### [facility] ([id number]) [address] [place] [address], [place] [address] Methylmalonate [Moles/Vol]on 05-31-2024 Methylmalonic Acid, QN, P 0.15 nmol/mL Normal <=0.40 [facility] Comment on above: Result Comment: NOTE ADDITIONAL INFORMATION This test was developed and its performance characteristics determined by [facility] in a manner consistent with CLIA requirements. This test has not been cleared or approved by the U.S. Food and Drug Administration. Test Performed by: [facility] [place] [id number] Deblocker: Michele Lee Ph.D.; CLIA# [id number] Performed By: #### 3 016-3, 4-8, 9, 19334-1 #### [facility] ([id number]) [address] [place] [address], [address] [place] [address] #### 59926-9 #### [facility] ([id number]) [address] [place] [address] TSH Qnon 05-31-2024 TSH 2.81 uIU/mL Normal 0.49-4.67 [facility] Comment on above: Performed By: #### 3 016-3, 4-8, 9, 07226-6 #### [facility] ([id number]) [address] [place] [address], [address] [place] [address] #### 02100-6 #### [facility] ([id number]) [address] [place] [address] VITAMIN B12on 05-31-2024 Cobalamin (Vitamin B12) [Mass/Vol] 297 pg/mL Normal 180-914 [facility] Comment on above: Performed By: #### 3 016-3, 4-8, 9, 38572-0 #### [facility] ([id number]) [address] [place] [address], [address] [place] [address] #### 95546-6 #### [facility] ([id number]) [address] [place] [address] Vitamin D+Metabolites [Mass/ Vol]on 05-31-2024 VITAMIN D 25 HYD TOT 27.9 ng/mL Low 30-100 [facility] Comment on above: Result Comment: Vitamin D status 25 [place] Vitamin D Deficiency <20 ng/mL Insufficiency 20-29 ng/mL Sufficiency 30-100 ng/mL Toxicity >100 ng/mL NOTE: A pediatric reference range has not been established by the hair weaver of this kit. The [place] [employer] recommends a Vitamin D level of = or >20ng/mL in infants and children. Performed By: #### 3 016-3, 2284-8, 2132-9, 15369-9 #### [facility] ([id number]) [address], [address] [place] [address] #### 83697-2 #### [facility] ([id number]) [address] [place] [address], [place] [address] MR BRAIN W AND WO CONTRAST ( [...] is going to have labs faxed over. [facility] Follow-Upon 04-17-2023 Follow-Up [id number] Philomena NATARAJAN 1990 F Date Provider Department Center 04/17/2023 [facility] Lian Heal Family History Problem Relation Age of Onset Anxiety disorder Mother Arthritis Mother Depression Mother Alcohol abuse Father Cancer Father Alcohol abuse Sister Anxiety disorder Sister Arthritis Mother's Sister Arthritis Mother's Brother Arthritis Mother's Sister Family Status - Relation Status Age at Mother Father Sister Mother's Sister Mother's Brother Mother's Sister Level of Service:65318 [place] OFFICE/OUTPATIENT ESTABLISHED MOD MDM 30-39 MIN () Reason for Visit and Comments: Follow-up [[id number]] - 2 week follow up [facility] Neurology Forms- Texton 03-25 Neurology Forms- Text [id number]#1.00C D:127 [facility] 36on 04-15-2023 35 Spoke w/ pt and she states the pharmacy gave her the run around stating they did not receive her rx from 04/10/23, and could not tell her if rx was sent under maiden name Just to be ob the safe side can you approve a new rx w/ her correct name, now that it has been updated in [facility] 36 Pt left VM in office regarding her name change. She states rx may not have been sent under correct name. Pt needs called to verify what med/s need sent to her pharmacy now that name has been updated in [facility] Consent for Treatmenton 03-25 Consent for Treatment [id number]#1.00C D:127 [facility] ANAon 04-10-2023 WILMA TITER <1:40 Normal <=1:[address] [facility] Comment on above: Order Comment: By IF A Result Comment: Test performed using OMA IFA WILMA Hep-2 Test, a pre-standardized assay designed for the qualitative and semi-quantitative detection of antinuclear antibodies. Performed By: #### L [id number] #### [facility] ([facility] [address] [place] [address] C3 COMPLEMENTon 04-10-2023 Magnesium [Mass/Vol] 125.00 mg/dL Normal 79.00-152.[address] [facility] Comment on above: Performed By: #### L [id number] #### [facility] ([facility]) [address] [place] [address] C4 COMPLEMENTon 04-10-2023 Magnesium [Mass/Vol] 21.8 mg/dL Normal 16-[address] [facility] Comment on above: Performed By: #### L [id number] #### [facility] ([facility]) [address] [place] [address] CBC WITH AUTO DIFFERENTIALon 04-10-2023 Basophils (Bld) [#/Vol] 0.06 10*3/uL Normal 0.00-0.[address] [facility] Comment on above: Performed By: #### L [id number] #### [facility] ([facility] [address] [place] [address] Basophils/100 WBC (Bld) 0.7 % Normal 0.0-1.[address] [facility] Comment on above: Performed By: #### L [id number] #### [facility] ([facility] [address] [place] [address] Eosinophils (Bld) [#/Vol] 0.13 10*3/uL Normal 0.00-0.[address] [facility] Comment on above: Performed By: #### L [id number] #### [facility] ([facility] [address] [place] [address] Eosinophils/100 WBC (Bld) 1.6 % Normal 0.0-6.[address] [facility] Comment on above: Performed By: #### L [id number] #### [facility] ([facility]) [address] [place] [address] Erythrocyte distribution width (RBC) [Ratio] 13.0 % Normal 11.5-15.[address] [facility] Comment on above: Performed By: #### L [id number] #### [facility] ([facility]) [address] [place] [address] ERYTHROCYTE MEAN CORPUSCULAR HEMOGLOBIN CONCENTRATION (G/DL) BY AUTOMATED 33.4 g/dL Normal 32.0-35.0 [facility] Comment on above: Performed By: #### L [id number] #### [facility] ([facility]) [address] [place] [address] Hematocrit (Bld) [Volume fraction] 43.1 % Normal 36.0-48.[address] [facility] Comment on above: Performed By: #### L [id number] #### [facility] ([facility]) [address] [place] [address] Hemoglobin (Bld) [Mass/Vol] 14.4 g/dL Normal 12.0-15.[address] [facility] Comment on above: Performed By: #### L [id number] #### [facility] ([facility]) [address] [place] [address] Immature granulocytes (Bld) [#/Vol] 0.03 10*3/uL Normal 0.00-0.[address] [facility] Comment on above: Performed By: #### L [id number] #### [facility] ([facility]) [address] [address] Immature granulocytes/100 WBC (Bld) 0.4 % Normal 0.0-1.[address] [facility] Comment on above: Performed By: #### L [id number] #### [facility] ([facility]) [address] [place] [address] Lymphocytes (Bld) [#/Vol] 1.79 10*3/uL Normal 1.20-4.[address] [facility] Comment on above: Performed By: #### L [id number] #### [facility] ([facility]) [address] [place] [address] Lymphocytes/100 WBC (Bld) 21.8 % Normal 20.0-45.[address] [facility] Comment on above: Performed By: #### L [id number] #### [facility] ([facility] [address] [place] [address] MCH (RBC) [Entitic mass] 28.5 pg Normal 27.0-33.[address] [facility] Comment on above: Performed By: #### L [id number] #### [facility] ([facility]) [address] [place] [address] MCV (RBC) [Entitic vol] 85.2 fL Normal 82.0-98.[address] [facility] Comment on above: Performed By: #### L [id number] #### [facility] ([facility]) [address] [place] [address] Monocytes (Bld) [#/Vol] 0.55 10*3/uL Normal 0.10-1.[address] [facility] Comment on above: Performed By: #### L [id number] #### [facility] ([facility]) [address] [place] [address] Monocytes/100 WBC (Bld) 6.7 % Normal 5.0-12.[address] [facility] Comment on above: Performed By: #### L [id number] #### [facility] ([facility]) [address] [place] [address] Neutrophils (Bld) [#/Vol] 5.65 10*3/uL Normal 1.60-7.[address] [facility] Comment on above: Performed By: #### L [id number] #### [facility] ([facility]) [address] [place] [address] Neutrophils/100 WBC (Bld) 68.8 % Normal 40.0-72.[address] [facility] Comment on above: Performed By: #### L [id number] #### [facility] ([facility]) [address] [place] [address] NRBC (PER 100 WBCS) BY AUTOMATED COUNT 0.0 % Normal [address] [facility] Comment on above: Performed By: #### L [id number] #### [facility] ([facility]) [address] [place] [address] PLATELETS (10*3/UL) IN BLOOD AUTOMATED COUNT 320 10*3/uL Normal 150-[address] [facility] Comment on above: Performed By: #### L [id number] #### [facility] ([facility]) [address] [place] [address] RBC (Bld) [#/Vol] 5.06 10*6/uL High 3.80-5.00 [facility] Comment on above: Performed By: #### L [id number] #### [facility] ([facility]) [address] [place] [address] WBC (Bld) [#/Vol] 8.21 10*3/uL Normal 4.00-10.60 [facility] Comment on above: Performed By: #### L [id number] #### [facility] ([facility]) [address] [place] [address] COMPREHENSIVE METABOLIC PANE Philip 04-10-2023 Albumin [Mass/Vol] 4.7 g/dL Normal 3.5-5.7 [facility] Comment on above: Performed By: #### L [id number] #### [facility] ([facility]) [address] [place] [address] ALP [Catalytic activity/Vol] 74 U/L Normal 34-[address] [facility] Comment on above: Performed By: #### L [id number] #### [facility] ([facility]) [address] [place] [address] ALT [Catalytic activity/Vol] 21 U/L Normal 7-[address] [facility] Comment on above: Performed By: #### L [id number] #### [facility] ([facility] [address] [place] [address] Anion gap [Moles/Vol] 11 mmol/L Normal 7-[address] [facility] Comment on above: Performed By: #### L [id number] #### [facility] ([facility]) [address] [place] [address] AST [Catalytic activity/Vol] 18 U/L Normal 13-[address] [facility] Comment on above: Performed By: #### L [id number] #### [facility] ([facility] [address] [place] [address] Bilirubin [Mass/Vol] 0.6 mg/dL Normal 0.3-1.[address] [facility] Comment on above: Performed By: #### L [id number] #### [facility] ([facility]) [address] [place] [address] Calcium [Mass/Vol] 9.2 mg/dL Normal 8.6-10.3 [facility] Comment on above: Performed By: #### L [id number] #### [facility] ([facility]) [address] [place] [address] Chloride [Moles/Vol] 106 mmol/L Normal 98-[address] [facility] Comment on above: Performed By: #### L [id number] #### [facility] ([facility]) [address] [place] [address] CO2 [Moles/Vol] 25 mmol/L Normal 21-31 [facility] Comment on above: Performed By: #### L [id number] #### [facility] ([facility]) [address] [place] [address] Creatinine [Mass/Vol] 0.86 mg/dL Normal 0.60-1.[address] [facility] Comment on above: Performed By: #### L [id number] #### [facility] ([facility]) [address] [place] [address] GLOMERULAR FILTRATION RATE ML/MIN/1.73 SQ M.PREDICTED 91.4 mL/min/1.73m*2 Normal >60.0 [facility] Comment on above: Result Comment: [facility]???s estimated glomerular filtration rate (eGFR) [...] individuals. Performed By: #### L [id number] #### [facility] ([facility]) [address] [place] [address] Glucose [Mass/Vol] 80 mg/dL Normal 70-100 [facility] Comment on above: Performed By: #### L [id number] #### [facility] ([facility]) [address] [place] [address] Potassium [Moles/Vol] 3.8 mmol/L Normal 3.5-5.[address] [facility] Comment on above: Performed By: #### L [id number] #### [facility] ([facility]) [address] [place] [address] Protein [Mass/Vol] 7.2 g/dL Normal 6.0-8.3 [facility] Comment on above: Performed By: #### L [id number] #### [facility] ([facility]) [address] [place] [address] Sodium [Moles/Vol] 138 mmol/L Normal 136-145 [facility] Comment on above: Performed By: #### L [id number] #### [facility] ([facility]) [address] [place] [address] Urea nitrogen [Mass/Vol] 12 mg/dL Normal 7-[address] [facility] Comment on above: Performed By: #### L [id number] #### [facility] ([facility]) [address] [place] [address] UREA NITROGEN/CREATININE (MASS RATIO) IN SER/PLAS 14.[address] [facility] Comment on above: Performed By: #### L [id number] #### [facility] ([facility]) [address] [place] [address] EXTRACTABLE NUCLEAR ANTIGEN ANTIBODIESon 04-10-2023 ANTI SM AB Negative Normal [facility] Comment on above: Performed By: #### L [id number] #### [facility] ([facility]) [address] [place] [address] ANTI SM/ANTIRNP AB Negative Normal [facility] Comment on above: Performed By: #### L [id number] #### [facility] ([facility]) [address] [place] [address] Office Visiton 04-10-2023 Follow-up visit [id number] Jose Maria Avalos 1990 F Date Provider Department Center 04/10/2023 [facility] Lian He[facility] Family History Problem Relation Age of Onset Anxiety disorder Mother Arthritis Mother Depression Mother Alcohol abuse Father Cancer Father Alcohol abuse Sister Anxiety disorder Sister Arthritis Mother's Sister Arthritis Mother's Brother Arthritis Mother's Sister Family Status - Relation Status Age at Mother Father Sister Mother's Sister Mother's Brother Mother's Sister Level of Service:98179 AR OFFICE/OUTPATIENT NEW MODERATE MDM 45-59 MINUTES (GC) Reason for Visit and Comments: New Patient [632] - Polyarthralgia Normal [facility] SJOGRENS SYNDROME ANTIBODIES A AND Bon 04-10-2023 VETO TO SSA (RO) ANTIBODY Negative Normal Negative [facility] Comment on above: Performed By: #### L [id number] #### [facility] ([facility] [address] [place] [address] VETO TO SSB (LA) ANTIBODY Negative Normal Negative [facility] Comment on above: Performed By: #### L [id number] #### [facility] ([facility]) [address] [place] [address] URINALYSISon 04-10-2023 BILIRUBIN, TOTAL PRESENCE IN URINE Negative Normal Negative [facility] Comment on above: Performed By: #### L [id number] #### [facility] ([facility]) [address] [place] [address] Clarity (U) Slightly Cloudy Abnormal Clear [facility] Comment on above: Performed By: #### L [id number] #### [facility] ([facility]) [address] [place] [address] Color (U) Yellow Normal Yellow [facility] Comment on above: Performed By: #### L [id number] #### [facility] ([facility]) [address] [place] [address] Glucose (U) [Mass/Vol] Negative Normal Negative [facility] Comment on above: Performed By: #### L [id number] #### [facility] ([facility]) [address] [place] [address] HEMOGLOBIN PRESENCE IN URINE Negative Normal Negative [facility] Comment on above: Performed By: #### L [id number] #### [facility] ([facility]) [address] [place] [address] Ketones Ql (U) Negative Normal Negative [facility] Comment on above: Performed By: #### L [id number] #### [facility] ([facility]) [address] [place] [address] LEUKOCYTE ESTERASE PRESENCE IN URINE BY TEST STRIP Negative Normal Negative [facility] Comment on above: Performed By: #### L [id number] #### [facility] ([facility]) [address] [place] [address] NITRITE PRESENCE IN URINE Negative Normal Negative [facility] Comment on above: Performed By: #### L [id number] #### [facility] ([facility]) [address] [place] [address] pH (U) 6.0 [pH] Normal 5.0-8.[address] [facility] Comment on above: Performed By: #### L [id number] #### [facility] ([facility]) [address] [place] [address] Protein (U) [Mass/Vol] 30 mg/dL Abnormal Negative [facility] Comment on above: Performed By: #### L [id number] #### [facility] ([facility]) [address] [place] [address] Specific gravity (U) [Rel density] 1.026 High 1.015-1.[address] [facility] Comment on above: Performed By: #### L [id number] #### [facility] ([facility]) [address] [place] [address] UROBILINOGEN (EU/DL) IN URINE 2.0 EU/dL Abnormal Negative [facility] Comment on above: Performed By: #### L [id number] #### [facility] ([facility]) [address] [place] [address] URINALYSIS MICROSCOPICon CASTS IN URINE Normal [facility] Comment on above: Performed By: #### L [id number] #### [facility] ([facility]) [address] [place] [address] CRYSTALS IN URINE Normal [facility] Comment on above: Performed By: #### L [id number] #### [facility] ([facility]) [address] [place] [address] MUCUS (#/HPF) IN URINE SEDIMENT Moderate Abnormal None Seen, Occasional, Few [facility] Comment on above: Performed By: #### L [id number] #### [facility] ([facility]) [address] [place] [address] RBC (#/HPF) IN URINE SEDIMENT 0-2 Abnormal None Seen [facility] Comment on above: Performed By: #### L [id number] #### [facility] ([facility] [address] [place] [address] SQUAMOUS EPITHELIAL CELLS (#/HPF) IN URINE SEDIMENT Many Abnormal None Seen, Occasional [facility] Comment on above: Performed By: #### L [id number] #### [facility] ([facility]) [address] [place] [address] WBC (LEUKOCYTE) (#/HPF) IN URINE SEDIMENT 0-2 Abnormal None Seen [facility] Comment on above: Performed By: #### L [id number] #### [facility] ([place]) [address] [place] [address] Physician Orderon 04-08-2023 Physician Order [id number] D:127 Normal [place] [facility] WILMA EIA W/REFLEX 9 BIOMARKER Son 03-05-2023 WILMA Direct Negative Normal Negative [facility] Comment on above: Performed By: #### A [id number] #### [facility] [address] [place] [address] Dr. Altagracia Allen C-REACTIVE PROTEINS (HS)on 0 03-05-2023 C-Reactive Protein, Cardiac 2.96 mg/L Normal 0.00-3.00 [facility] Comment on above: Result Comment: Rela tive Risk for Future Cardiovascular Event Low <1.00 Average 1.00 - 3.00 High >3.00 Performed By: #### C RPHS #### [facility] [address] [place] [address] Dr. Altagracia Allen CYCLIC CITRULLINATED PEPTIDE AB (CCP)on 03-05-2023 CCP Antibodies IgG/IgA 4 units Normal 0-19 [facility] Comment on above: Result Comment: Nega tive <20 Weak positive 20 - 39 Moderate positive 40 - 59 Strong positive >59 Performed By: #### C CPAB #### [facility] [address] [address] [address] Altagracia Allen HIV 1 AND 2 WITH REFLEXon HIV Screen 4th Generation wRfx Non-Reactive Normal Non Reactive [facility] Comment on above: Result Comment: HIV Negative HIV-1/HIV-2 antibodies and HIV-1 p24 antigen were NOT detected. There is no laboratory evidence of HIV infection. Performed By: #### H IV12 #### [facility] [address] [place] [address] Dr. Altagracia Allen MRI TSPINE WO CONon [...] MP PAIGE Date: 2023-03-05 14:38 Normal [facility] RHEUMATOID FACTORon 03-05-20 23 RA Latex Turbid. <10.0 Normal <14.0 [facility] Comment on above: Performed By: #### R F ####[facility] [address] [place], [place] [address]Dr. Altagracia Allen [facility] 14 mm/hr Normal <=20 [facility] Comment on above: Performed By: #### S EDR #### [facility] [address] [address] [address] Altagracia Allen HEMOGRAM AND PLATELon 2022 Hematocrit (Bld) [Volume fraction] 40.0 % Normal 36.0-48.0 [facility] Comment on above: Performed By: #### H H ####[facility] [address] [address]Dr. Altagracia Allen Hemoglobin (Bld) [Mass/Vol] 13.5 g/dL Normal 12.0-16.0 [facility] Comment on above: Performed By: #### H H ####[facility] [address] [address]Dr. Altagracia Allen MCH (RBC) [Entitic mass] 28.5 pg Normal 26.7-34.0 [facility] Comment on above: Performed By: #### H H ####[facility] [address] [address]Dr. Altagracia Allen MCHC (RBC) [Mass/Vol] 33.8 g/dL Normal 29.9-35.2 [facility] Comment on above: Performed By: #### H H ####[facility] [address] [id number]. Altagracia Allen MCV (RBC) [Entitic vol] 84.6 fL Normal 81.0-99.0 [facility] Comment on above: Performed By: #### H H ####[facility] [address] [id number] Allen PLT 271 103/ul Normal 150-450 [facility] Comment on above: Performed By: #### H H ####[facility] [address] [address]DrAlexx Allen RBC 4.73 106/ul Normal 4.20-5.40 [facility] Comment on above: Performed By: #### H H ####[facility] [address] [address]DrAlexx Allen WBC 8.0 103/ul Normal 4.0-11.0 [facility] Comment on above: Performed By: #### H H ####[facility] [address] [address]Dr. Altagracia Allen LIPID PROFILEon 02-25-2023 CHOL-HDL RATIO NORM SEE BELOW Normal [facility] Comment on above: Result Comment: 3.3 - 4.4 LOW RISK 4.4 - 7.1 AVERAGE RISK 7.1 - 11.0 MODERATE RISK >11.0 HIGH RISK Performed By: #### L IPID, [id number], CMP #### [facility] [address] [address] [address] Altagracia Allen Cholesterol [Mass/Vol] 175 mg/dL Normal <=200 [facility] Comment on above: Performed By: #### L IPID, [id number], CMP #### [facility] [address] [address] [address] Altagracia Allen Cholesterol in HDL [Mass/Vol] 29 mg/dL Critically low 40-60 [facility] Comment on above: Performed By: #### L IPID, [id number], CMP #### [facility] [address] [address] [address] Altagracia Allen Cholesterol in LDL [Mass/Vol] 127.2 mg/dL Normal [facility] Comment on above: Performed By: #### L IPID, [id number], CMP #### [facility] [address] [address] [address] Altagracia Allen Cholesterol.total/C holesterol in HDL [Mass ratio] 6.0 {ratio} Normal [facility] Comment on above: Performed By: #### L IPID, [id number], CMP #### [facility] [address] [address] [address] Altagracia Allen HDL NORMAL > or = 60 mg/dl - LO W CARDIOVASCULAR RISK <40 mg/dl - HIGH CARDIOVASCULAR RISK Normal [facility] Comment on above: Performed By: #### L IPID, [id number], CMP #### [facility] [address] [address] [address] Altagracia Allen LDL CALC NORMAL SEE BELOW Normal [facility] Comment on above: Result Comment: <100 mg/dl OPTIMAL 100 - 129 mg/dl NEAR OR ABOVE OPTIMAL 130 - 159 mg/dl BORDERLINE HIGH 160 - 189 mg/dl HIGH >190 mg/dl VERY HIGH Performed By: #### L IPID, [id number], CMP #### [facility] [address] [address] [address] Altagracia Allen Triglyceride [Mass/Vol] 94 mg/dL Normal <=150 [facility] Comment on above: Performed By: #### L IPID, [id number], CMP #### [facility] [address] [address] [address] Altagracia Allen VLDL CALC 18.8 mg/dL Normal [facility] Comment on above: Performed By: #### L IPID, [id number], CMP #### [facility] [address] [address] [address] Altagracia Allen PROF 14(COMP METB)on 023 Albumin [Mass/Vol] 3.6 g/dL Normal 3.4-5.0 [facility] Comment on above: Performed By: #### L IPID, [id number], CMP #### [facility] [address] [place] [address] Dr. Altagracia Allen Albumin/Globulin [Mass ratio] 1.1 {ratio} Normal [facility] Comment on above: Performed By: #### L IPID, [id number], CMP #### [facility] [address] [place] [address] Dr. Altagracia Allen ALP [Catalytic activity/Vol] 72 U/L Normal 46-116 [facility] Comment on above: Performed By: #### L IPID [id number], CMP #### [facility] [address] [place] [address] Dr. Altagracia Allen ALT [Catalytic activity/Vol] 27 U/L Normal 14-59 [facility] Comment on above: Performed By: #### L IPID, [id number], CMP #### [facility] [address] [place] [address] Dr. Altagracia Allen Anion gap [Moles/Vol] 13.8 mmol/L Normal [facility] Comment on above: Performed By: #### L IPID, [id number], CMP #### [facility] [address] [place] [address] Dr. Altagracia Allen AST [Catalytic activity/Vol] 17 U/L Normal 15-37 [facility] Comment on above: Performed By: #### L IPID, [id number], CMP #### [facility] [address] [place] [address] Dr. Altagracia Allen Bilirubin [Mass/Vol] 0.2 mg/dL Normal 0.2-1.0 [facility] Comment on above: Performed By: #### L IPID, [id number], CMP #### [facility] [address] [place] [address] Dr. Altagracia Allen Calcium [Mass/Vol] 8.6 mg/dL Normal 8.5-10.1 [facility] Comment on above: Performed By: #### L IPID, [id number], CMP #### [facility] [address] [address] [address] Altagracia Allen Chloride [Moles/Vol] 106 mmol/L Normal 98-107 [facility] Comment on above: Performed By: #### L IPID, [id number], CMP #### [facility] [address] [address] [address] Altagracia Allen CO2 [Moles/Vol] 23.7 mmol/L Normal 21.0-32.0 [facility] Comment on above: Performed By: #### L IPID, [id number], CMP #### [facility] [address] [place] [address] Dr. Altagracia Allen Creatinine [Mass/Vol] 0.76 mg/dL Normal 0.55-1.02 [facility] Comment on above: Performed By: #### L IPID, [id number], CMP #### [facility] [address] [place] [address] Dr. Altagracia Allen EGFR-AF LIBYAN >60 Normal >=60 [facility] Comment on above: Performed By: #### L IPID, [id number], CMP #### [facility] [address] [place] [address] Dr. Altagracia Allen EGFR-NON AF LIBYAN >60 Normal >=60 [facility] Comment on above: Performed By: #### L IPID, [id number], CMP #### [facility] [address] [address] [address] Altagracia Allen Globulin (S) [Mass/Vol] 3.4 g/dL Normal [facility] Comment on above: Performed By: #### L IPID, [id number], CMP #### [facility] [address] [place] [address] Dr. Altagracia Allen Glucose [Mass/Vol] 92 mg/dL Normal 74-106 [facility] Comment on above: Performed By: #### L IPID, [id number], CMP #### [facility] [address] [place] [address] Dr. Altagracia Allen Potassium [Moles/Vol] 3.5 mmol/L Normal 3.5-5.1 [facility] Comment on above: Performed By: #### L IPID, [id number], CMP #### [facility] [address] [place] [address] Dr. Altagracia Allen Protein [Mass/Vol] 7.0 g/dL Normal 6.4-8.2 [facility] Comment on above: Performed By: #### L IPID, [id number], CMP #### [facility] [address] [place] [address] Dr. Altagracia Allen Sodium [Moles/Vol] 140 mmol/L Normal 136-145 [facility] Comment on above: Performed By: #### L IPID, [id number], CMP #### [facility] [address] [place] [address] Dr. Altagracia Allen Urea nitrogen [Mass/Vol] 13.0 mg/dL Normal 7.0-18.0 [facility] Comment on above: Performed By: #### L IPID, [id number], CMP #### [facility] [address] [place] [address] Dr. Altagracia Allen Urea nitrogen/Creatinine [Mass ratio] 17.1 mg/mg Normal [facility] Comment on above: Performed By: #### L IPID, [id number], CMP #### [facility] [address] [place] [address] Dr. Altagracia Allen TSH W/ REFLEX TO FT4on 02-25 TSH 2.830 uIU/mL Normal 0.358-3.740 [facility] Comment on above: Performed By: #### L IPID, [id number], CMP #### [facility] [address] [place] [address] Dr. Altagracia Allen XR TSPINE 3 VIEWSon [...] MP PAIGE Date: 2023-02-14 07:59 Normal [facility] CBC W/DIFFon 01-23-2021 ABS BASOPHILS 0.1 10*3/uL Normal 0.0-0.2 [facility] Comment on above: Performed By: #### 5 0103 #### [facility] [address] ABS IMM GRANS 0.0 10*3/uL Normal 0.0-0.2 [facility] Comment on above: Performed By: #### 5 0103 #### [facility] [address] ABS NEUTROPHILS 4.9 10*3/uL Normal 1.6-7.6 [facility] Comment on above: Performed By: #### 5 0103 #### [facility] [address] Basophils/100 WBC (Bld) 0.7 % Normal 0.0-1.[address] [facility] Comment on above: Performed By: #### 5 0103 #### [facility] [address] [place] [address], [facility] Eosinophils (Bld) [#/Vol] 0.3 10*3/uL Normal 0.0-0.[address] [facility] Comment on above: Performed By: #### 5 0103 #### [facility] [address] [place] [address], [facility] Eosinophils/100 WBC (Bld) 3.6 % Normal 0.0-6.[address] [facility] Comment on above: Performed By: #### 5 0103 #### [facility] [address] Erythrocyte distribution width (RBC) [Ratio] 13.2 % Normal 11.5-15.[address] [facility] Comment on above: Performed By: #### 5 0103 #### [facility] [address] [facility] [place] [address], [facility] Hematocrit (Bld) [Volume fraction] 44.2 % Normal 36.0-45.[address] [facility] Comment on above: Performed By: #### 0103 #### [facility] [address] Hemoglobin (Bld) [Mass/Vol] 14.4 g/dL Normal 12.0-15.[address] [facility] Comment on above: Performed By: #### 5 3 #### [facility] [address] IMMATURE GRANS 0.4 % Normal 0.0-1.0 The [facility] Comment on above: Performed By: #### 3 #### [facility] [address] [place] [address], [facility] Lymphocytes (Bld) [#/Vol] 1.8 10*3/uL Normal 1.2-4.[address] [facility] Comment on above: Performed By: #### 5 0103 #### [facility] [address] [facility] [place] [address], [facility] Lymphocytes/100 WBC (Bld) 23.3 % Normal 20.0-45.[address] [facility] Comment on above: Performed By: #### 5 0103 #### [facility] [address] [facility] [place] [address], [facility] MCH (RBC) [Entitic mass] 29.1 pg Normal 27.0-33.[address] [facility] Comment on above: Performed By: #### 5 3 #### [facility] [address] MCHC (RBC) [Mass/Vol] 32.6 g/dL Normal 32.0-35.[address] [facility] Comment on above: Performed By: #### 5 0103 #### [facility] [address] [place] [address], [facility] MCV (RBC) [Entitic vol] 89.3 fL Normal 82.0-98.[address] [facility] Comment on above: Performed By: #### 5 0103 #### [facility] [address] [facility] [place] [place] [address], [facility] Monocytes (Bld) [#/Vol] 0.6 10*3/uL Normal 0.1-1.[address] [facility] Comment on above: Performed By: #### 5 0103 #### [facility] [address] [facility] [place] [address], [facility] MONOS 7.6 % Normal 5.0-12.0 [facility] Comment on above: Performed By: #### 5 0103 #### [facility] [address] [facility] [place] [place] [address], [facility] Neutrophils/100 WBC (Bld) 64.4 % Normal 40.0-72.[address] [facility] Comment on above: Performed By: #### 5 0103 #### [facility] [address] [facility] [place] [place] [address], [facility] Nucleated RBC/100 WBC (Bld) [Ratio] 0 % Normal 0-[address] [facility] Comment on above: Performed By: #### 5 0103 #### [facility] [address] [facility] [place] [place] [address], [facility] PLAT CNT 264 10*3/uL Normal 150-400 The [facility] Comment on above: Performed By: #### 5 3 #### [facility] [address] [place] [address], [facility] RBC (Bld) [#/Vol] 4.95 10*6/uL Normal 3.80-5.00 [facility] Comment on above: Performed By: #### 5 0103 #### [facility] [address] [facility]. [address] WBC (Bld) [#/Vol] 7.59 10*3/uL Normal 4.00-10.60 [facility] Comment on above: Performed By: #### 5 0103 #### [facility] [address] COMP METABOLIC PANELon 01-23 Albumin [Mass/Vol] 4.4 g/dL Normal 3.5-5.7 The [facility] Comment on above: Performed By: #### 4 6413, 20563, 14423 #### [facility] [address] [facility] [address] ALKALINE PHOSPH 64 IU/L Normal 34-104 The [facility] Comment on above: Performed By: #### 4 6413, 99562, 53690 #### [facility] 3000 [facility]. [address] ALT [Catalytic activity/Vol] 13 U/L Normal 7-[address] [facility] Comment on above: Performed By: #### 4 6413, 10159, 23114 #### [facility] [address] [facility] [facility] AST [Catalytic activity/Vol] 14 U/L Normal 13-[address] [facility] Comment on above: Performed By: #### 4 6413, 56404, 38713 #### [facility] [address] [facility] [place] [address], [facility] Bilirubin [Mass/Vol] 0.4 mg/dL Normal 0.3-1.0 [facility] Comment on above: Performed By: #### 4 6413, 70141, 19746 #### [facility] [address] [place] [address], [place] Calcium [Mass/Vol] 9.2 mg/dL Normal 8.6-10.3 [facility] Comment on above: Performed By: #### 4 6413, 46214, 65117 #### [facility] [address] [place] [address], [place] Chloride [Moles/Vol] 105 mmol/L Normal 98-[address] [facility] Comment on above: Performed By: #### 4 6413, 34600, 92582 #### [facility] [address] [place] [address], [place] CO2 [Moles/Vol] 28 mmol/L Normal 21-31 [facility] Comment on above: Performed By: #### 4 6413, 26019, 78591 #### [facility] [address] [place] [address], [place] Creatinine [Mass/Vol] 0.90 mg/dL Normal 0.60-1.[address] [facility] Comment on above: Performed By: #### 4 6413, 27641, 45431 #### [facility] [address] [place] [address], [place] GFR/1.73 sq M predicted among blacks MDRD (S/P/Bld) [Vol rate/Area] mL/min/{1.73_m2} Normal >[address] [facility] Comment on above: Performed By: #### 4 6413, 03843, 78564 #### [facility] [address] [place] [address], [place] GFR/1.73 sq M predicted among non-blacks MDRD (S/P/Bld) [Vol rate/Area] mL/min/{1.73_m2} Normal >[address] [facility] Comment on above: Performed By: #### 4 6413, 60625, 89768 #### [facility] [address] [place] [address], [place] Glucose [Mass/Vol] 86 mg/dL Normal 70-100 The [facility] Comment on above: Performed By: #### 4 6413, 31398, 16813 #### [facility] [address] [place] [address], [place] Potassium [Moles/Vol] 3.9 mmol/L Normal 3.5-5.[address] [facility] Comment on above: Performed By: #### 4 6413, 71236, 97933 #### [facility] [address] [place] [address], [place] Protein [Mass/Vol] 7.1 g/dL Normal 6.0-8.3 [facility] Comment on above: Performed By: #### 4 6413, 19305, 14853 #### [facility] [address] [place] [address], [place] Sodium [Moles/Vol] 138 mmol/L Normal 136-145 [facility] Comment on above: Performed By: #### 4 6413, 43610, 80139 #### [facility] [address] [place] [id number], [facility] Urea nitrogen [Mass/Vol] 11 mg/dL Normal 7-[address] [facility] Comment on above: Performed By: #### 4 6413, 46830, 44215 #### [facility] [address] [place] [address], [place] LIPID PROFILEon 01-23-2021 Cholesterol [Mass/Vol] 162 mg/dL Normal 120-[address] [facility] Comment on above: Result Comment: CHOL ESTEROL REFERENCE RANGE: 20 YEARS AND OLDER CARDIOVASCULAR RISK Less than 200 mg/dl Low Risk 200 to 239 mg/dl Borderline Risk 240 mg/dl and greater High Risk Performed By: #### 4 6413, 90171, 77830 #### [facility] [address] [place] [address], [place] Cholesterol in HDL [Mass/Vol] 38 mg/dL Normal 23-[address] [facility] Comment on above: Result Comment: Slig ht variation in normal range could be due to gender and/or age. HDL CHOLESTEROL REFERENCE RANGE: 20 years and older Cardiovascular Risk > or =60 mg/dL Desirable 40 TO 59 mg/dL Low Risk <40 mg/dL High Risk Performed By: #### 4 6413, 19391, 66797 #### [facility] [address] [place] [address], [place] Cholesterol in LDL [Mass/Vol] 111 mg/dL Normal 0-[address] [facility] Comment on above: Result Comment: LDL IS A CALCULATION LDL IS ONLY VALID IF THE TRIG IS LESS THAN 400. Performed By: #### 4 6413, 02018, 57764 #### [facility] [address] [place] [address], [place] Cholesterol.total/C holesterol in HDL [Mass ratio] 4.3 {ratio} Normal 0.0-4.5 [facility] Comment on above: Performed By: #### 4 6413, 20254, 02741 #### [facility] [address] [place] [address], [place] NON-HDL CHOLESTEROL 124 mg/dL Normal [facility] Comment on above: Performed By: #### 4 6413, 41382, 50213 #### [facility] [address] [place] [address], [place] Triglyceride [Mass/Vol] 66 mg/dL Normal 40-[address] [facility] Comment on above: Result Comment: TRIG LYCERIDE REFERENCE RANGE: 20 YEARS AND OLDER CARDIOVASCULAR RISK LESS THAN 150 mg/dl LOW RISK 150 TO 199 mg/dl BORDERLINE RISK 200 mg/dl AND GREATER HIGH RISK Performed By: #### 4 6413, 22604, 78442 #### [facility] [address] [place] [address], [place] VLDL CHOL 13 mg/dL Normal 0-[address] [facility] Comment on above: Performed By: #### 4 6413, 61001, 56363 #### [facility] [address] [place] [address], [facility] TSH3 WITH REFLEX FT4on 01-23 TSH 3RD GENERATION 1.73 uIU/mL Normal 0.34-5.60 [facility] Comment on above: Performed By: #### 4 6413, 35716, 60977 #### [facility] [address] [facility] [place] [place] [address], [facility] Encounters Encounter Date Encounter Type Care Provider Facility Start: 08-19-2024 ambulatory FE HAYLIE Not Availa ble Start: 08-17-2024 End: 08-17-[address]24 [address] C WINDNAGEL Not Available Start: 08-10-2024 End: 08-10-2024 Patient encounter procedure ANP-BC Ro Windnagel Work Phone: [facility] [place] Work Phone: Start: 08-10-2024 End: 08-10-2024 ambulatory NON STAFF [facility] Work Phone: Start: 07-01-2024 End: 07-01-2024 ambulatory RO C WINDNAGEL Not Available Start: 06-25-2024 End: 06-25-2024 Patient encounter procedure ANP-BC Ro Windnagel Work Phone: [facility] [place] Work Phone: Start: 06-25-2024 End: 06-25-2024 ambulatory NON STAFF [facility] Work Phone: Start: 06-08-2024 End: 06-08-[address]24 [address] C WINDNAGEL Not Available Start: 06-01-2024 End: 06-01-2024 [address] RO C WINDNAGEL Not Available Start: 05-31-2024 End: 05-31-2024 amb[address] RO C WINDNAGEL [facility] Start: 05-13-2024 End: 05-13-2024 [address] C WINDNAGEL Not Available Start: 04-29-2024 End: 04-29-2024 ambulatory RO PATEL Not Available Start: 02-17-2024 End: 02-17-2024 ambulatory BRUNO RYAN Not Available Start: 02-03-2024 End: 02-03-2024 ambulatory REMIGIO DORMAN Not Available Start: 07-08-2023 End: 07-09-2023 ambulatory Ro Windnagel Facility:[facility] [place] Start: 07-08-2023 End: 07-08-2023 Patient encounter procedure CAREN FULTON [facility] Start: 04-28-2023 ambulatory SAJAN SHAMMO Facility:[facility] [place] Start: 04-17-2023 End: 04-17-2023 ambulatory [facility] Start: 04-15-2023 End: 04-16-2023 ambulatory Ro Alexnamaged Facility:[facility] Start: 04-10-2023 End: 04-10-2023 ambulatory [facility] Start: 03-04-2023 End: 03-05-2023 ambulatory SAJAN SHAMMO Facility: Start: 03-01-2023 Encounter for genera l adult medical examination without abnormal findings SAJAN SHAMMO [facility] Start: 02-25-2023 End: 02-26-2023 ambulatory SAJAN [...] Category Payer Self-pay 2023 Unknown 1989 Unknown [id number] 2.16.84 0.1.150366.3.579.2.593 1989 Unknown [id number] 2.16.84 0.1.142329.3.579.2.593 1989 Unknown [id number] 2.16.84 0.1.765536.3.579.2.593 1989 Unknown [id number] 2.16.8 40.1.008868.3.579.2.727 1989 Unknown [id number] 2.16.8 40.1.032260.3.579.2.727 1989 Unknown [id number] 2.16.8 40.1.814627.3.579.2.727 1989 Unknown [id number] 2.16.8 40.1.818494.3.579.2.1286 1989 Unknown [id number] 2.16.84 0.1.141159.3.579.2.1259 1989 Unknown [id number] 2.16.84 0.1.740617.3.579.2.1259 1989 Unknown [id number] 2.16.84 0.1.936410.3.579.2.1259 1989 Unknown [id number] 2.16.84 0.1.279771.3.579.2.1259 1989 Unknown [id number] 2.16.84 0.1.243353.3.579.2.1259 1989 Unknown [id number] 2.16.84 0.1.379326.3.579.2.1259 1989 Unknown [id number] 2.16.84 0.1.251721.3.579.2.1259 1989 Unknown [id number] 2.16.84 0.1.977301.3.579.2.1259 1989 Unknown [id number] 2.16.84 0.1.205593.3.579.2.1259 1959 Unknown [id number] 1959 Unknown [id number] Unknown [id number] 2.16.8 40.1.480885.3.579.2.531 Unknown [id number] 2.16.8 40.1.342850.3.579.2.531 Social History Date Type Detail Facility Tobacco smoking status [facility] Sex Assigned At Female [facility] Start: 1990 Sex Assigned At Female [facility] Progress note 04-17-2023 Note Date & Type [...] remains due to follow up with her line runner. 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 Quinn Tripathi MD Rheumatology Fellow, PGY-[address] 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 [facility] Evaluation + Plan note Note Date & Type Note Facility Evaluation + Plan note No data available for this section [facility] Evaluation note Note Date & Type Note [facility] Discharge instructions Note Date & Type Note Facility Hospital Discharge instructions No data available for this section [facility] Progress note Note Date & Type Note Facility Progress note No data available for this section [facility] Summary Purpose Family History No Family History [...] and content) DATE CREATED AUTHOR 03/09/2021 [facility] DATE CREATED AUTHOR AUTHOR'S ORGANIZ ATION 03/09/2023 [facility] DATE CREATED AUTHOR AUTHOR'S ORGANIZ ATION 07/10/2023 Osiel Santana [facility] DATE CREATED AUTHOR AUTHOR'S ORGANIZ ATION 08/16/2023 [facility] DATE CREATED AUTHOR AUTHOR'S ORGANIZ ATION 06/08/2024 [facility] DATE CREATED AUTHOR AUTHOR'S ORGANIZ ATION 08/16/2024 [facility] DATE CREATED AUTHOR AUTHOR'S ORGANIZ ATION 08/19/2024 [facility] Patient Care team [...] BE BASED ON THE PRIMARY CLINICAL RECORDS. [employer] provides no warranty or guarantee of the accuracy or completeness of information in this document.
== END 2024-08-24 16:35 | disposition home or self-care (01) ==
LOC: US 16:34
PROVIDERS: PCP Nurse Practitioner Primary Care; Visit Provider Physician Assistant
DX: Z01.419 Encounter for gynecological examination (general) (routine) without abnormal findings (principal); N92.6 Irregular menstruation, unspecified; N85.9 Noninflammatory disorder of uterus, unspecified
CPT/HCPCS: 36415; 76830; 76856; 80053; 80061; 83036; 84443; 85025

== ENCOUNTER 2024-09-06 11:31 | Emergency (ER) | payer BC, SELFPAY ==
--- OUTSIDE RECORDS SUMMARY | 2024-09-06 11:40 | XMS_ITS | CCD ---
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 Name Role Phone SHAMMO, SAJAN Admitting [...] STAFF Primary Care Provider Unavailabl e Windnagel, ENTREPRENEUR-C Ro C Attending Provider [phone] NON STAFF Primary Care Unavailable Windnagel, Ro C Referring Unavailable Windnagel, Ro Admitting Unavailable Windnagel, Ro Attending Unavailable Windnagel, Ro C Admitting Unavailable Windnagel, Ro C Attending Unavailable NON STAFF Primary Care Unavailable REMIGIO REAL Attending Unavailable REGINA RYAN Attending Unavailable WINDNAGEL, RO C Attending Unavailable WINDNAGEL, RO C Referring Unavailable WINDNAGEL, RO C Attending Unavailable RO PATEL Attending Unavailable RO PATEL Attending Unavailable RO PATEL Attending Unavailable BARB STALLINGS Attending Unavailable Unallocated , Noms Provider Primary Care Provi jim Unallocated , Ilianas Provider Primary Care Provi jim No Pcp, No Pcp Primary Care Provider Unavailabl e Allergies Allergy Classification Reported Allergen(s) Allergy Type Date of Onset Reaction(s) Facility (3 sources) Dextromethorphan / guaiFENesin; Translations: [DEXTROMETHORPHAN- AIFENESIN] Drug Allergy 3 [facility] Repository Medications Current Medications Medication Drug Class(es) Dates Sig (Normalized) Sig (Original) ergocalciferol 1.25 mg oral capsule (2 sources) Provitamin D2 Compound Start: 05-31-2024 End: 05-31-2025 take 1 capsule by mouth every week ergocalciferol (Drisdol) 1.25 MG (33935 UT) capsule Indications: Vitamin D deficiency Take 1 capsule (1.25 mg) by mouth 1 (one) time per week 12 capsule 3 05/31/2024 05/31/2025 Active hydrOXYzine hydrochloride 10 mg oral tablet (3 sources) Antihistamine Start: 07-21-2009 take 1 tablet by mouth three times daily as needed hydrOXYzine HCl (Atarax) 10 MG tablet Take 10 mg by mouth 3 (three) times a day as needed. 07/21/2009 Active 24 hr metFORMIN hydrochloride 500 mg extended release oral tablet (2 sources) Biguanide Start: 08-19-2024 End: 08-19-2025 take 1 tablet by mouth every twenty-four hours in the morning metFORMIN XR (Glucophage-XR) 500 MG 24 hr tablet Indications: PCOS (polycystic ovarian syndrome) Take 1 tablet (500 mg) by mouth in the morning and 1 tablet (500 mg) before bedtime. Do not crush, chew, or split.. 30 tablet 11 08/19/2024 08/19/2025 Active Problems Active Problems Problem Classification Problem Date Documented Date Episodic/Chronic Anxiety disorders (4 sources) Anxiety; Translations: [Posttraumatic stress disorder] Onset: 04-28-2024 07-03-2023 Chronic Attention-deficit, conduct, and disruptive behavior disorders (1 source) Attention deficit hyperactivity disorder 07-03-2023 Chronic Blindness and vision defects (3 sources) Diplopia; Translations: [Diplopia] Onset: 05-31-2024 08-17-2024 Episodic Conditions associated with dizziness or vertigo (2 sources) Dizziness; Translations: [Dizziness and giddiness] Onset: 08-17-2024 08-17-2024 Episodic Endometriosis (2 sources) Endometriosis (clinical); Translations: [Endometriosis, unspecified] Onset: 06-04-2016 07-03-2023 Chronic Female infertility (1 source) Female infertility 07-03-2023 Chronic Genitourinary symptoms and ill-defined conditions (1 source) Nocturnal enuresis; Translations: [NOCTURNAL ENURESIS] Onset: 03-09-2023 Chronic Mood disorders (2 sources) Depressive disorder; Translations: [Depressive disorder] Onset: 07-13-2019 07-03-2023 Chronic Other nervous system disorders (2 sources) Carpal tunnel syndrome, bilateral upper limbs; Translations: [Carpal tunnel syndrome, bilateral upper limbs] Onset: 04-10-2023 Chronic Other nervous system disorders (1 source) Polyneuropathy, unspecified; Translations: [Polyneuropathy, unspecified] Onset: 05-31-2024 Chronic Other nervous system disorders (2 sources) Skin sensation disturbance; Translations: [Anesthesia of skin] Onset: 08-17-2024 08-17-2024 Episodic Residual codes; unclassified (1 source) Family history of other diseases of the musculoskeletal system and connective tissue; Translations: [FAM HX OTH DZ MUSK SYS AND CNCTV TISS] Onset: 03-09-2023 Episodic Spondylosis; intervertebral disc disorders; other back problems (12 sources) Pain in thoracic spine; Translations: [Occipital neuralgia] Onset: 02-13-2023 Episodic Unclassified (1 source) Low back pain, unspecified; Translations: [Low back pain, unspecified] Onset: 08-10-2024 Past or Other Problems Problem Classification Problem Date Documented Date Episodic/Chronic Diseases of mouth; excluding dental (2 sources) Dry mouth, unspecified; Translations: [Dry mouth, unspecified] Onset: 04-10-2023 Episodic Immunizations and screening for infectious disease (2 sources) Encounter for screening for human immunodeficiency virus [HIV]; Translations: [Exposure to sexually transmissible disorder] Onset: 06-04-2016 02-10-2023 Episodic Malaise and fatigue (2 sources) Other fatigue; Translations: [Other fatigue] Onset: 04-10-2023 Episodic Other eye disorders (2 sources) Dry eye syndrome of bilateral lacrimal glands; Translations: [Dry eye syndrome of bilateral lacrimal glands] Onset: 04-10-2023 Episodic Other nervous system disorders (2 sources) Abnormal gait; Translations: [Unspecified abnormalities of gait and mobility] Onset: 04-28-2024 04-28-2024 Episodic Other non-traumatic joint disorders (6 sources) Pain in unspecified joint; Translations: [PAIN IN UNSPECIFIED JOINT] Onset: 03-04-2023 Episodic Other screening for suspected conditions (not mental disorders or infectious disease) (2 sources) Encounter for screening for cardiovascular disorders; Translations: [Patient encounter status] Onset: 06-04-2016 06-04-2016 Episodic Results Test Name Value Interpretation Reference Range Facility IGP,APTIMA HPV,AGE GDLNon AGE GDLN ACOG TESTING Note . [facility] Comment on above: TESTS RESULT FLAG UN ITS REF RANGE LAB Clinician Provided Cytology Information Source.............Cervix;Endocervix No. of containers..01 ThinPrep Vial Age Algo ACOG Carmen... FLAG LEGEND: L-Low Normal,H-High Normal,LL-Alert Low,HH-Alert High <-Panic Low,>-Panic High,A-Abnormal,AA-Critical Abnormal Performed at: 01 =[address] [place] [address] Kiesha Monroe MD, HPV APTIMA Negative Negative [facility] Comment on above: This nucleic acid am plification test detects fourteen high- risk HPV types (16,18,31,33,35,39,45,51,52,56,58,59,66,68) without differentiation. Performed at: =[address] [id number] Hosiery Pairer: Kiesha Monroe MD, Phone: [phone] Performed at: [address] [id number] Hosiery Pairer: Kiesha Monroe MD, Phone: [phone] IGP, APTIMA HPV, RFX 16/18,45 Note . [facility] Comment on above: TESTS RESULT FLAG UN ITS REF RANGE LAB DIAGNOSIS: 02 NEGATIVE FOR INTRAEPITHELIAL LESION OR MALIGNANCY. Specimen adequacy: 02 Satisfactory for evaluation. Endocervical and/or squamous metaplastic cells (endocervical component) are present. Performed by: 02 Samantha Garcia, Animal Maintenance Supervisor (ASCP) . 02 Note: Note 02 The Pap smear is a screening test designed to aid in the detection of premalignant and malignant conditions of the uterine cervix. It is not a diagnostic procedure and should not be used as the sole means of detecting cervical cancer. Both false-positive and false-negative reports do occur. Test Methodology: Note 02 The CoCollage(R) Administrative Volunteer was unable to read this specimen. Therefore a manual review was performed. FLAG LEGEND: L-Low Normal,H-High Normal,LL-Alert Low,HH-Alert High <-Panic Low,>-Panic High,A-Abnormal,AA-Critical Abnormal Performed at: [address] [address] Kiesha Monroe MD, HPV Genotype Reflex Note 02 Criteria not met, HPV Genotype not performed. Criteria not met, HPV Genotype not performed. BRUSH-SPATULA CERVIX ENDOCERVIX [facility] ALL CBC WITH AUTO DIFFon BASOPHILS ABSOLUTE AUTO 0.0 [facility] Basophils/100 WBC (Bld) 0.6 % 0.2 - 2.0 % [facility] Eosinophils/100 WBC (Bld) 3.2 % 0.9 - 7.0 % [facility] Erythrocyte distribution width (RBC) [Ratio] 12.8 % 11.0 - 15.0 % [facility] Hematocrit (Bld) [Volume fraction] 38.3 % 36.0 - 48.0 % [facility] Hemoglobin (Bld) [Mass/Vol] 12.9 g/dL 12.0 - 16.0 g/dL [facility] IMMATURE GRANULOCYTES ABS AUTO 0.02 [facility] Immature granulocytes/100 WBC (Bld) 0.3 % 0.0 - 0.5 % [facility] LYMPHOCYTES ABSOLUTE AUTO 1.7 [facility] Lymphocytes/100 WBC (Bld) 24.0 % 20.5 - 60.0 % [facility] MCH (RBC) [Entitic mass] 29.4 pg 26.7 - 34.0 pg [facility] MCHC (RBC) [Mass/Vol] 33.7 g/dL 29.9 - 35.2 g/dL [facility] MCV (RBC) [Entitic vol] 87.2 fL 81.0 - 99.0 fL [facility] MONOCYTES ABSOLUTE AUTO 0.4 [facility] Monocytes/100 WBC (Bld) 6.1 % 1.7 - 12.0 % [facility] NEUTROPHILS ABSOLUTE AUTO 4.8 [facility] Neutrophils/100 WBC (Bld) 65.8 % 43.0 - 75.0 % [facility] Platelet mean volume (Bld) [Entitic vol] 11.1 fL 9.5 - 13.5 fL [facility] EO # 0.2 [facility] TB PLT 256 [facility] RBC 4.39 [facility] WBC 7.2 [facility] XR pre/post mri xrayon 08-10 XR pre/post mri xray [facility] [place] [address] [place] [address] MRI Report Signed Patient: Eloisa Natarajan MR#: [id number] 35 : 1990 Acct:[id number] Age/Sex: 33 / F ADM Date: 08/10/24 Loc: Room: Type: [facility] Attending Dr: Ro MAGDALENO Copies to: RASTA Arzola Ordering Provider: RASTA Arzola Date of Service: 08/10/24 MR/MR lumbar spine wo con: R26.9, M54.50, N39.489, R20.0 ([id number]) XR/XR pre/post mri xray: R26.9, M54.50, N39.489, [...] Eben Morel M.D.08/10/2024 8:33 AM Dictation Location: [place] [address] Transcribed By: [facility] 08/10/24832 Dictated By: Eben Morel DO 08/10/2428 Signed By: 08/10/24832 Normal [facility] MR cervical spine wo conon 0 06-25-2024 MR cervical spine wo con [facility] [place] [address] MRI Report Signed Patient: Eloisa Natarajan MR#: [id number] 35 : 1990 Acct:[id number] Age/Sex: 33 / F ADM Date: 06/25/24 Loc: Room: Type: [facility] Attending Dr: Ro Patel Adult PETER-JENNY Copies to: CAROLYN Arzola NP-C Ordering Provider: [...] Yung Jr., Blanca06/25/2024 6:59 PM Dictation Location: [facility]- Transcribed By: [facility] 06/25/241858 Dictated By: Tony Yung Jr, DO 06/25/241852 Signed By: 06/25/241858 Normal [facility] Folate [Mass/Vol]on 05-31-20 FOLIC ACID 15.0 ng/mL Normal >5.8 [facility] Comment on above: Result Comment: NEW REFERENCE RANGE Performed By: #### 3 016-3, 2284-8, 2132-9, 42995-0 #### [facility] ([id number]) [address] [place] [address], [address] [place] [address] #### 95268-9 #### [facility] ([id number]) [address] [place] [address], [place] [address] Methylmalonate [Moles/Vol]on 05-31-2024 Methylmalonic Acid, QN, P 0.15 nmol/mL Normal <=0.40 [facility] Comment on above: Result Comment: NOTE ADDITIONAL INFORMATION This test was developed and its performance characteristics determined by [facility] in a manner consistent with CLIA requirements. This test has not been cleared or approved by the U.S. Food and Drug Administration. Test Performed by: [facility] - [address] [address] Hosiery Pairer: Michele Lee Ph.D.; CLIA# [id number] Performed By: #### 3 016-3, 4-8, 9, 07890-1 #### [facility] ([id number]) [address], [address] [place] [address] #### [id number] #### [facility] ([id number]) [address] [place] [address] TSH Qnon 05-31-2024 TSH 2.81 uIU/mL Normal 0.49-4.67 [facility] Comment on above: Performed By: #### 3 016-3, 2283-8, 2132-07, 95880-8 #### [facility] ([id number]) [address], [address] [place] [address] #### 79504-0 #### [facility] ([id number]) [address] [place] [address] VITAMIN B12on 05-31-2024 Cobalamin (Vitamin B12) [Mass/Vol] 297 pg/mL Normal 180-914 [facility] Comment on above: Performed By: #### 3 016-3, 2283-8, 2132-07, 78631-7 #### [facility] ([id number]) [address], [address] [place] [address] #### 89655-6 #### [facility] ([id number]) [address] [place] [address] Vitamin D+Metabolites [Mass/ Vol]on 05-31-2024 VITAMIN D 25 HYD TOT 27.9 ng/mL Low 30-100 [facility] Comment on above: Result Comment: Vitamin D status 25 [place] Vitamin D Deficiency <20 ng/mL Insufficiency 20-29 ng/mL Sufficiency 30-100 ng/mL Toxicity >100 ng/mL NOTE: A pediatric reference range has not been established by the long term care administrator of this kit. The [place] [employer] recommends a Vitamin D level of = or >20ng/mL in infants and children. Performed By: #### 3 016-3, 2284-8, 2132-9, 33665-1 #### [facility] ([id number]) [address], [address] [place] [address] #### 70184-5 #### [facility] ([id number]) [address] [facility], [place] [address] MR BRAIN W AND WO CONTRAST ( [...] auditory canal mass. ELECTRONICALLY SIGNED BY: Abner Ramirez, DO Normal Not Available 36on 08-14-2023 36 Pt called regarding lab results ordered by pt's OBGYN seeking fertility treatment. Pt is going to have labs faxed over. Normal [facility] Follow-Upon 04-17-2023 Follow-Up [id number] Philomena NATARAJAN jeremy 1990 F Date Provider Department Center 04/17/2023 [address] [facility] RHEUM Lian Heal Family History Problem Relation Age of Onset Anxiety disorder Mother Arthritis Mother Depression Mother Alcohol abuse Father Cancer Father Alcohol abuse Sister Anxiety disorder Sister Arthritis Mother's Sister Arthritis Mother's Brother Arthritis Mother's Sister Family Status - Relation Status Age at Mother Father Sister Mother's Sister Mother's Brother Mother's Sister Level of Service:21536 IN OFFICE/OUTPATIENT ESTABLISHED MOD MDM 30-39 MIN () Reason for Visit and Comments: Follow-up [695962] - 2 week follow up [facility] Neurology Forms- Texton 03-25 Neurology Forms- Text [id number] D:127 [facility] 36on 04-15-2023 36 Spoke w/ pt [...] it has been updated in [facility] 36 Pt left VM in office regarding her name change. She states rx may not have been sent under correct name. Pt needs called to verify what med/s need sent to her pharmacy now that name has been updated in [facility] Consent for Treatmenton 03-25 Consent for Treatment [id number] D:127 [facility] ANAon 04-10-2023 WILMA TITER <1:40 Normal <=1:40 [facility] Comment on above: Order Comment: By IF A Result Comment: Test performed using OMA IFA WILMA Hep-2 Test, a pre-standardized assay designed for the qualitative and semi-quantitative detection of antinuclear antibodies. Performed By: #### L [id number] #### [facility] (BEAKER) [address] [place] [address] C3 COMPLEMENTon 04-10-2023 Magnesium [Mass/Vol] 125.00 mg/dL Normal 79.00-152.00 [facility] Comment on above: Performed By: #### L [id number] #### [facility] ([facility]) [address] [place] [address] C4 COMPLEMENTon 04-10-2023 Magnesium [Mass/Vol] 21.8 mg/dL Normal 16-38 [facility] Comment on above: Performed By: #### L [id number] #### [facility] ([facility]) [address] [place] [address] CBC WITH AUTO DIFFERENTIALon 04-10-2023 Basophils (Bld) [#/Vol] 0.06 10*3/uL Normal 0.00-0.20 [facility] Comment on above: Performed By: #### L [id number] #### [facility] ([facility]) [address] [place] [address] Basophils/100 WBC (Bld) 0.7 % Normal 0.0-1.0 [facility] Comment on above: Performed By: #### L [id number] #### [facility] ([facility]) [address] [place] [address] Eosinophils (Bld) [#/Vol] 0.13 10*3/uL Normal 0.00-0.50 [facility] Comment on above: Performed By: #### L [id number] #### [facility] ([facility]) [address] [place] [address] Eosinophils/100 WBC (Bld) 1.6 % Normal 0.0-6.0 [facility] Comment on above: Performed By: #### L [id number] #### [facility] ([facility]) [address] [place] [address] Erythrocyte distribution width (RBC) [Ratio] 13.0 % Normal 11.5-15.0 [facility] Comment on above: Performed By: #### L [id number] #### [facility] ([facility]) [address] [place] [address] ERYTHROCYTE MEAN CORPUSCULAR HEMOGLOBIN CONCENTRATION (G/DL) BY AUTOMATED 33.4 g/dL Normal 32.0-35.0 [facility] Comment on above: Performed By: #### L [id number] #### [facility] (BEAKER) [address] [place] [address] Hematocrit (Bld) [Volume fraction] 43.1 % Normal 36.0-48.0 [facility] Comment on above: Performed By: #### L [id number] #### [facility] (BEAKER) [address] [place] [address] Hemoglobin (Bld) [Mass/Vol] 14.4 g/dL Normal 12.0-15.0 [facility] Comment on above: Performed By: #### L [id number] #### [facility] [address] [place] [address] Immature granulocytes (Bld) [#/Vol] 0.03 10*3/uL Normal 0.00-0.20 [facility] Comment on above: Performed By: #### L [id number] #### [facility] (BEAKER) [address] [place] [address] Immature granulocytes/100 WBC (Bld) 0.4 % Normal 0.0-1.0 [facility] Comment on above: Performed By: #### L [id number] #### [facility] (BEAKER) [address] [place] [address] Lymphocytes (Bld) [#/Vol] 1.79 10*3/uL Normal 1.20-4.00 [facility] Comment on above: Performed By: #### L [id number] #### [facility] (BEAKER) [address] [place] [address] Lymphocytes/100 WBC (Bld) 21.8 % Normal 20.0-45.0 [facility] Comment on above: Performed By: #### L [id number] #### [facility] (BEAKER) [address] [place] [address] MCH (RBC) [Entitic mass] 28.5 pg Normal 27.0-33.0 [facility] Comment on above: Performed By: #### L [id number] #### [facility] [address] [place] [address] MCV (RBC) [Entitic vol] 85.2 fL Normal 82.0-98.0 [facility] Comment on above: Performed By: #### L [id number] #### [facility] ([facility]) [address] [place] [address] Monocytes (Bld) [#/Vol] 0.55 10*3/uL Normal 0.10-1.00 [facility] Comment on above: Performed By: #### L [id number] #### [facility] ([facility]) [address] [place] [address] Monocytes/100 WBC (Bld) 6.7 % Normal 5.0-12.0 [facility] Comment on above: Performed By: #### L [id number] #### [facility] ([facility]) [address] [place] [address] Neutrophils (Bld) [#/Vol] 5.65 10*3/uL Normal 1.60-7.60 [facility] Comment on above: Performed By: #### L [id number] #### [facility] [address] [place] [address] Neutrophils/100 WBC (Bld) 68.8 % Normal 40.0-72.0 [facility] Comment on above: Performed By: #### L [id number] #### [facility] [address] [place] [address] NRBC (PER 100 WBCS) BY AUTOMATED COUNT 0.0 % Normal 0 [facility] Comment on above: Performed By: #### L [id number] #### [facility] (BEAKER) [address] [place] [address] PLATELETS (10*3/UL) IN BLOOD AUTOMATED COUNT 320 10*3/uL Normal 150-400 [facility] Comment on above: Performed By: #### L [id number] #### [facility] ([facility]) [address] [place] [address] RBC (Bld) [#/Vol] 5.06 10*6/uL High 3.80-5.[address] [facility] Comment on above: Performed By: #### L [id number] #### [facility] ([facility]) [address] [place] [address] WBC (Bld) [#/Vol] 8.21 10*3/uL Normal 4.00-10.[address] [facility] Comment on above: Performed By: #### L [id number] #### [facility] ([facility]) [address] [place] [address] COMPREHENSIVE METABOLIC PANE Philip 04-10-2023 Albumin [Mass/Vol] 4.7 g/dL Normal 3.5-5.7 [facility] Comment on above: Performed By: #### L [id number] #### [facility] ([facility]) [address] [place] [address] ALP [Catalytic activity/Vol] 74 U/L Normal 34-104 [facility] Comment on above: Performed By: #### L [id number] #### [facility] ([facility]) [address] [place] [address] ALT [Catalytic activity/Vol] 21 U/L Normal 7-52 [facility] Comment on above: Performed By: #### L [id number] #### [facility] ([facility]) [address] [place] [address] Anion gap [Moles/Vol] 11 mmol/L Normal 7-20 [facility] Comment on above: Performed By: #### L [id number] #### [facility] ([facility]) [address] [place] [address] AST [Catalytic activity/Vol] 18 U/L Normal 13-39 [facility] Comment on above: Performed By: #### L [id number] #### [facility] (BEAKER) [address] [place] [address] Bilirubin [Mass/Vol] 0.6 mg/dL Normal 0.3-1.0 [facility] Comment on above: Performed By: #### L [id number] #### [facility] (BEAKER) [address] [place] [address] Calcium [Mass/Vol] 9.2 mg/dL Normal 8.6-10.3 [facility] Comment on above: Performed By: #### L [id number] #### [facility] (BEAKER) [address] [place] [address] Chloride [Moles/Vol] 106 mmol/L Normal 98-107 [facility] Comment on above: Performed By: #### L [id number] #### [facility] (BEAKER) [address] [place] [address] CO2 [Moles/Vol] 25 mmol/L Normal 21-31 [facility] Comment on above: Performed By: #### L [id number] #### [facility] (BEAKER) [address] [place] [address] Creatinine [Mass/Vol] 0.86 mg/dL Normal 0.60-1.20 [facility] Comment on above: Performed By: #### L [id number] #### [facility] (BEAKER) [address] [place] [address] GLOMERULAR FILTRATION RATE ML/MIN/1.73 SQ M.PREDICTED 91.4 mL/min/1.73m*2 Normal >60.0 [facility] Comment on above: Result Comment: [facility]???s estimated glomerular filtration rate (eGFR) will [...] individuals. Performed By: #### L [id number] #### [facility] ([facility]) [address] [place] [address] Glucose [Mass/Vol] 80 mg/dL Normal 70-100 [facility] Comment on above: Performed By: #### L [id number] #### [facility] ([facility]) [address] [place] [address] Potassium [Moles/Vol] 3.8 mmol/L Normal 3.5-5.1 [facility] Comment on above: Performed By: #### L [id number] #### [facility] ([facility]) [address] [place] [address] Protein [Mass/Vol] 7.2 g/dL Normal 6.0-8.3 [facility] Comment on above: Performed By: #### L [id number] #### [facility] ([facility]) [address] [place] [address] Sodium [Moles/Vol] 138 mmol/L Normal 136-145 [facility] Comment on above: Performed By: #### L [id number] #### [facility] ([facility]) [address] [place] [address] Urea nitrogen [Mass/Vol] 12 mg/dL Normal 7-25 [facility] Comment on above: Performed By: #### L [id number] #### [facility] ([facility]) [address] [place] [address] UREA NITROGEN/CREATININE (MASS RATIO) IN SER/PLAS 14.0 Normal [facility] Comment on above: Performed By: #### L [id number] #### [facility] ([facility]) [address] [place] [address] EXTRACTABLE NUCLEAR ANTIGEN ANTIBODIESon 04-10-2023 ANTI SM AB Negative Normal [facility] Comment on above: Performed By: #### L [id number] #### [facility] ([facility]) [address] [place] [address] ANTI SM/ANTIRNP AB Negative Normal [facility] Comment on above: Performed By: #### L [id number] #### [facility] ([facility]) [address] [place] [address] Office Visiton 04-10-2023 Follow-up visit [id number] Jose Maria Avalos 1990 F Date Provider Department Center 04/10/2023 [facility]UM Lian [facility] Family History Problem Relation Age of Onset Anxiety disorder Mother Arthritis Mother Depression Mother Alcohol abuse Father Cancer Father Alcohol abuse Sister Anxiety disorder Sister Arthritis Mother's Sister Arthritis Mother's Brother Arthritis Mother's Sister Family Status - Relation Status Age at Mother Father Sister Mother's Sister Mother's Brother Mother's Sister Level of Service:03783 IN OFFICE/OUTPATIENT NEW MODERATE MDM 45-59 MINUTES (GC) Reason for Visit and Comments: New Patient [632] - Polyarthralgia Normal [facility] SJOGRENS SYNDROME ANTIBODIES A AND Bon 04-10-2023 VETO TO SSA (RO) ANTIBODY Negative Normal Negative [facility] Comment on above: Performed By: #### L [id number] #### [facility] ([facility]) [address] [place] [address] VETO TO SSB (LA) ANTIBODY Negative Normal Negative [facility] Comment on above: Performed By: #### L [id number] #### [facility] ([facility]) [address] [place] [address] URINALYSISon 04-10-2023 BILIRUBIN, TOTAL PRESENCE IN URINE Negative Normal Negative [facility] Comment on above: Performed By: #### L [id number] #### [facility] ([facility]) [address] [place] [address] Clarity (U) Slightly Cloudy Abnormal Clear [facility] Comment on above: Performed By: #### L [id number] #### [facility] ([facility]) [address] [place] [address] Color (U) Yellow Normal Yellow [facility] Comment on above: Performed By: #### L [id number] #### [facility] ([facility]) [address] [place] [address] Glucose (U) [Mass/Vol] Negative Normal Negative [facility] Comment on above: Performed By: #### L [id number] #### [facility] ([facility]) [address] [place] [address] HEMOGLOBIN PRESENCE IN URINE Negative Normal Negative [facility] Comment on above: Performed By: #### L [id number] #### [facility] ([facility]) [address] [place] [address] Ketones Ql (U) Negative Normal Negative [facility] Comment on above: Performed By: #### L [id number] #### [facility] ([facility]) [address] [place] [address] LEUKOCYTE ESTERASE PRESENCE IN URINE BY TEST STRIP Negative Normal Negative [facility] Comment on above: Performed By: #### L [id number] #### [facility] ([facility]) [address] [place] [address] NITRITE PRESENCE IN URINE Negative Normal Negative [facility] Comment on above: Performed By: #### L [id number] #### [facility] ([facility]) [address] [place] [address] pH (U) 6.0 [pH] Normal 5.0-8.0 [facility] Comment on above: Performed By: #### L [id number] #### [facility] ([facility]) [address] [place] [address] Protein (U) [Mass/Vol] 30 mg/dL Abnormal Negative [facility] Comment on above: Performed By: #### L [id number] #### [facility] ([facility]) [address] [place] [address] Specific gravity (U) [Rel density] 1.026 High 1.015-1.020 [facility] Comment on above: Performed By: #### L [id number] #### [facility] ([facility]) [address] [place] [address] UROBILINOGEN (EU/DL) IN URINE 2.0 EU/dL Abnormal Negative [facility] Comment on above: Performed By: #### L [id number] #### [facility] ([facility]) [address] [place] [address] URINALYSIS MICROSCOPICon CASTS IN URINE Normal [facility] Comment on above: Performed By: #### L [id number] #### [facility] ([facility]) [address] [place] [address] CRYSTALS IN URINE Normal [facility] Comment on above: Performed By: #### L [id number] #### [facility] ([facility]) [address] [place] [address] MUCUS (#/HPF) IN URINE SEDIMENT Moderate Abnormal None Seen, Occasional, Few [facility] Comment on above: Performed By: #### L [id number] #### [facility] ([facility]) [address] [place] [address] RBC (#/HPF) IN URINE SEDIMENT 0-2 Abnormal None Seen [facility] Comment on above: Performed By: #### L [id number] #### [facility] ([facility]) [address] [place] [address] SQUAMOUS EPITHELIAL CELLS (#/HPF) IN URINE SEDIMENT Many Abnormal None Seen, Occasional [facility] Comment on above: Performed By: #### L [id number] #### [facility] ([facility]) [address] [place] [address] WBC (LEUKOCYTE) (#/HPF) IN URINE SEDIMENT 0-2 Abnormal None Seen [facility] Comment on above: Performed By: #### L [id number] #### [facility] ([facility]) [address] [place] [address] Physician Orderon 04-08-2023 Physician Order [id number] D:127 Normal [facility] WILMA EIA W/REFLEX 9 BIOMARKER Son 03-05-2023 WILMA Direct Negative Normal Negative [facility] Comment on above: Performed By: #### A [id number] #### [facility] [address] [place] [address] Dr. Altagracia Allen C-REACTIVE PROTEINS (HS)on 0 03-05-2023 C-Reactive Protein, Cardiac 2.96 mg/L Normal 0.00-3.00 [facility] Comment on above: Result Comment: Rela tive Risk for Future Cardiovascular Event Low <1.00 Average 1.00 - 3.00 High >3.00 Performed By: #### C RPHS #### [facility] [address] [place] [address] Dr. Altagracia Allen CYCLIC CITRULLINATED PEPTIDE AB (CCP)on 03-05-2023 CCP Antibodies IgG/IgA 4 units Normal 0-19 [facility] Comment on above: Result Comment: Nega tive <20 Weak positive 20 - 39 Moderate positive 40 - 59 Strong positive >59 Performed By: #### C CPAB #### [facility] [address] [place] [address] Dr. Altagracia Allen HIV 1 AND 2 WITH REFLEXon HIV Screen 4th Generation wRfx Non-Reactive Normal Non Reactive [facility] Comment on above: Result Comment: HIV Negative HIV-1/HIV-2 antibodies and HIV-1 p24 antigen were NOT detected. There is no laboratory evidence of HIV infection. Performed By: #### H IV12 #### [facility] [address] [place] [address] Dr. Altagracia Allen MRI TSPINE WO CONon 03-05-20 MRI TSPINE WO CON EXAMINATION: MRI TSP [...] MP PAIGE Date: 2023-03-05 14:38 Normal [facility] RHEUMATOID FACTORon 03-05-20 23 RA Latex Turbid. <10.0 Normal <14.0 [facility] Comment on above: Performed By: #### R F ####[facility] [address] [place] [address]Dr. Altagracia Allen SED RATE WESTERGREN 2022 SED RATE 14 mm/hr Normal <=20 [facility] Comment on above: Performed By: #### S EDR #### [facility] [address] [address] [address] Altagracia Allen HEMOGRAM AND PLATELon 2022 Hematocrit (Bld) [Volume fraction] 40.0 % Normal 36.0-48.0 [facility] Comment on above: Performed By: #### H H ####[facility] [address] [place] [address]DrAlexx Allen Hemoglobin (Bld) [Mass/Vol] 13.5 g/dL Normal 12.0-16.0 [facility] Comment on above: Performed By: #### H H ####[facility] [address] [place] [address]DrAlexx Allen MCH (RBC) [Entitic mass] 28.5 pg Normal 26.7-34.0 [facility] Comment on above: Performed By: #### H H ####[facility] [address] [place] [id number]. Altagracia Allen MCHC (RBC) [Mass/Vol] 33.8 g/dL Normal 29.9-35.2 [facility] Comment on above: Performed By: #### H H ####[facility] [address] [place] [address]Dr. Altagracia Allen MCV (RBC) [Entitic vol] 84.6 fL Normal 81.0-99.0 [facility] Comment on above: Performed By: #### H H ####[facility] [address] [place], [place] [address]Vp. Altagracia Allen PLT 271 103/ul Normal 150-450 [facility] Comment on above: Performed By: #### H H ####[facility] [address] [place], [place] [address]Qn. Altagracia Allen RBC 4.73 106/ul Normal 4.20-5.40 [facility] Comment on above: Performed By: #### H H ####[facility] [address] [place], [place] [address]Ns. Altagracia Allen WBC 8.0 103/ul Normal 4.0-11.0 [facility] Comment on above: Performed By: #### H H ####[facility] [address] [place] [id number]. Altagracia Allen LIPID PROFILEon 02-25-2023 CHOL-HDL RATIO NORM SEE BELOW Normal [facility] Comment on above: Result Comment: 3.3 - 4.4 LOW RISK 4.4 - 7.1 AVERAGE RISK 7.1 - 11.0 MODERATE RISK >11.0 HIGH RISK Performed By: #### L IPID, TSHRFT4, CMP #### [facility] [address] [address] [address] Altagracia Allen Cholesterol [Mass/Vol] 175 mg/dL Normal <=200 [facility] Comment on above: Performed By: #### L IPID, TSHRFT4, CMP #### [facility] [address] [address] [address] Altagracia Allen Cholesterol in HDL [Mass/Vol] 29 mg/dL Critically low 40-60 [facility] Comment on above: Performed By: #### L IPID, TSHRFT4, CMP #### [facility] [address] [address] [address] Altagracia Allen Cholesterol in LDL [Mass/Vol] 127.2 mg/dL Normal [facility] Comment on above: Performed By: #### L IPID, TSHRFT4, CMP #### [facility] [address] [address] [address] Altagracia Allen Cholesterol.total/C holesterol in HDL [Mass ratio] 6.0 {ratio} Normal [facility] Comment on above: Performed By: #### L IPID TSHRFT4, CMP #### [facility] [address] [address] [address] Altagracia Allen HDL NORMAL > or = 60 mg/dl - LO W CARDIOVASCULAR RISK <40 mg/dl - HIGH CARDIOVASCULAR RISK Normal [facility] Comment on above: Performed By: #### L IPID, TSHRFT4, CMP #### [facility] [address] [address] [address] Altagracia Allen LDL CALC NORMAL SEE BELOW Normal [facility] Comment on above: Result Comment: <100 mg/dl OPTIMAL 100 - 129 mg/dl NEAR OR ABOVE OPTIMAL 130 - 159 mg/dl BORDERLINE HIGH 160 - 189 mg/dl HIGH >190 mg/dl VERY HIGH Performed By: #### L IPID, TSHRFT4, CMP #### [facility] [address] [address] [address] Altagracia Allen Triglyceride [Mass/Vol] 94 mg/dL Normal <=150 [facility] Comment on above: Performed By: #### L IPID TSHRFT4, CMP #### [facility] [address] [address] [address] Altagracia Allen VLDL CALC 18.8 mg/dL Normal [facility] Comment on above: Performed By: #### L IPID TSHRFT4, CMP #### [facility] [address] [address] [address] Altagracia Allen PROF 14(COMP METB)on 023 Albumin [Mass/Vol] 3.6 g/dL Normal 3.4-5.0 [facility] Comment on above: Performed By: #### L IPID, TSHRFT4, CMP #### [facility] [address] [place] [address] Dr. Altagracia Allen Albumin/Globulin [Mass ratio] 1.1 {ratio} Normal [facility] Comment on above: Performed By: #### L IPID, TSHRFT4, CMP #### [facility] [address] [address] [address] Altagracia Allen ALP [Catalytic activity/Vol] 72 U/L Normal 46-116 [facility] Comment on above: Performed By: #### L IPID, TSHRFT4, CMP #### [facility] [address] [address] [address] Altagracia Allen ALT [Catalytic activity/Vol] 27 U/L Normal 14-59 [facility] Comment on above: Performed By: #### L IPID, TSHRFT4, CMP #### [facility] [address] [place] [address] Dr. Altagracia Allen Anion gap [Moles/Vol] 13.8 mmol/L Normal [facility] Comment on above: Performed By: #### L IPID, TSHRFT4, CMP #### [facility] [address] [place] [address] Dr. Altagracia Allen AST [Catalytic activity/Vol] 17 U/L Normal 15-37 [facility] Comment on above: Performed By: #### L IPID, TSHRFT4, CMP #### [facility] [address] [place] [address] Dr. Altagracia Allen Bilirubin [Mass/Vol] 0.2 mg/dL Normal 0.2-1.0 [facility] Comment on above: Performed By: #### L IPID, TSHRFT4, CMP #### [facility] [address] [place] [address] Dr. Altagracia Allen Calcium [Mass/Vol] 8.6 mg/dL Normal 8.5-10.1 [facility] Comment on above: Performed By: #### L IPID, TSHRFT4, CMP #### [facility] [address] [place] [address] Dr. Altagracia Allen Chloride [Moles/Vol] 106 mmol/L Normal 98-107 [facility] Comment on above: Performed By: #### L IPID, TSHRFT4, CMP #### [facility] [address] [place] [address] Dr. Altagracia Allen CO2 [Moles/Vol] 23.7 mmol/L Normal 21.0-32.0 [facility] Comment on above: Performed By: #### L IPID, TSHRFT4, CMP #### [facility] [address] [address] [address] Altagracia Allen Creatinine [Mass/Vol] 0.76 mg/dL Normal 0.55-1.02 [facility] Comment on above: Performed By: #### L IPID, TSHRFT4, CMP #### [facility] [address] [place] [address] Dr. Altagracia Allen EGFR-AF IRANIAN >60 Normal >=60 [facility] Comment on above: Performed By: #### L IPID, TSHRFT4, CMP #### [facility] [address] [place] [address] Dr. Altagracia Allen EGFR-NON AF IRANIAN >60 Normal >=60 [facility] Comment on above: Performed By: #### L IPID, TSHRFT4, CMP #### [facility] [address] [place] [address] Dr. Altagracia Allen Globulin (S) [Mass/Vol] 3.4 g/dL Normal [facility] Comment on above: Performed By: #### L IPID, TSHRFT4, CMP #### [facility] [address] [place] [address] Dr. Altagracia Allen Glucose [Mass/Vol] 92 mg/dL Normal 74-106 [facility] Comment on above: Performed By: #### L IPID, TSHRFT4, CMP #### [facility] [address] [place] [address] Dr. Altagracia Allen Potassium [Moles/Vol] 3.5 mmol/L Normal 3.5-5.1 [facility] Comment on above: Performed By: #### L IPID, TSHRFT4, CMP #### [facility] [address] [place] [address] Dr. Altagracia Allen Protein [Mass/Vol] 7.0 g/dL Normal 6.4-8.2 [facility] Comment on above: Performed By: #### L IPID, TSHRFT4, CMP #### [facility] [address] [address] [address] Altagracia Allen Sodium [Moles/Vol] 140 mmol/L Normal 136-145 [facility] Comment on above: Performed By: #### L IPID, TSHRFT4, CMP #### [facility] [address] [place] [address] Dr. Altagracia Allen Urea nitrogen [Mass/Vol] 13.0 mg/dL Normal 7.0-18.0 [facility] Comment on above: Performed By: #### L IPID, TSHRFT4, CMP #### [facility] [address] [place] [address] Dr. Altagracia Allen Urea nitrogen/Creatinine [Mass ratio] 17.1 mg/mg Normal [facility] Comment on above: Performed By: #### L IPID, TSHRFT4, CMP #### [facility] [address] [place] [address] Dr. Altagracia Allen TSH W/ REFLEX TO FT4on 02-25 TSH 2.830 uIU/mL Normal 0.358-3.[address] [facility] Comment on above: Performed By: #### L IPID, TSHRFT4, CMP #### [facility] [address] [place] [address] Dr. Altagracia Allen XR TSPINE 3 VIEWSon [...] MP PAIGE Date: 2023-02-14 07:59 Normal [facility] CBC W/DIFFon 01-23-2021 ABS BASOPHILS 0.1 10*3/uL Normal 0.0-0.2 [facility] Comment on above: Performed By: #### 5 0103 #### [facility] [address] [place] [address], [facility] ABS IMM GRANS 0.0 10*3/uL Normal 0.0-0.2 [facility] Comment on above: Performed By: #### 5 0103 #### [facility] [address] [place] [address], [facility] ABS NEUTROPHILS 4.9 10*3/uL Normal 1.6-7.6 The [facility] Comment on above: Performed By: #### 5 0103 #### [facility] [address] [place] [address], [facility] Basophils/100 WBC (Bld) 0.7 % Normal 0.0-1.0 [facility] Comment on above: Performed By: #### 5 0103 #### [facility] [address] [place] [place] [address], [facility] Eosinophils (Bld) [#/Vol] 0.3 10*3/uL Normal 0.0-0.5 [facility] Comment on above: Performed By: #### 5 0103 #### [facility] [address] [place] [id number], [facility] Eosinophils/100 WBC (Bld) 3.6 % Normal 0.0-6.0 [facility] Comment on above: Performed By: #### 5 0103 #### [facility] [address] [place] [address], [facility] Erythrocyte distribution width (RBC) [Ratio] 13.2 % Normal 11.5-15.0 [facility] Comment on above: Performed By: #### 5 0103 #### [facility] [address] [place] [id number], [facility] Hematocrit (Bld) [Volume fraction] 44.2 % Normal 36.0-45.0 [facility] Comment on above: Performed By: #### 5 0103 #### [facility] [address] [facility] [place] [address], [facility] Hemoglobin (Bld) [Mass/Vol] 14.4 g/dL Normal 12.0-15.0 [facility] Comment on above: Performed By: #### 5 0103 #### [facility] [address] [facility] [address], [facility] IMMATURE GRANS 0.4 % Normal 0.0-1.0 The [facility] Comment on above: Performed By: #### 5 0103 #### [facility] [address] [place] [address], [facility] Lymphocytes (Bld) [#/Vol] 1.8 10*3/uL Normal 1.2-4.0 [facility] Comment on above: Performed By: #### 5 0103 #### [facility] [address] [place] [address], [facility] Lymphocytes/100 WBC (Bld) 23.3 % Normal 20.0-45.0 [facility] Comment on above: Performed By: #### 5 0103 #### [facility] [address] MCH (RBC) [Entitic mass] 29.1 pg Normal 27.0-33.0 [facility] Comment on above: Performed By: #### 5 0103 #### [facility] [address] [facility] [address], [facility] MCHC (RBC) [Mass/Vol] 32.6 g/dL Normal 32.0-35.0 [facility] Comment on above: Performed By: #### 5 3 #### [facility] [address] [place] [address], [facility] MCV (RBC) [Entitic vol] 89.3 fL Normal 82.0-98.0 [facility] Comment on above: Performed By: #### 5 3 #### [facility] [address] [place] [address], [facility] Monocytes (Bld) [#/Vol] 0.6 10*3/uL Normal 0.1-1.0 [facility] Comment on above: Performed By: #### 5 0103 #### [facility] [address] [place] [address], [facility] MONOS 7.6 % Normal 5.0-12.0 [facility] Comment on above: Performed By: #### 5 102 #### [facility] [address] [place] [address], [facility] Neutrophils/100 WBC (Bld) 64.4 % Normal 40.0-72.0 [facility] Comment on above: Performed By: #### 5 102 #### [facility] [address] Nucleated RBC/100 WBC (Bld) [Ratio] 0 % Normal 0-0 [facility] Comment on above: Performed By: #### 5 102 #### [facility] [address] [place] [address], [facility] PLAT CNT 264 10*3/uL Normal 150-400 The [facility] Comment on above: Performed By: #### 5 3 #### [facility] [address] [place] [address], [facility] RBC (Bld) [#/Vol] 4.95 10*6/uL Normal 3.80-5.00 [facility] Comment on above: Performed By: #### 102 #### [facility] [address] [place] [address], [facility] WBC (Bld) [#/Vol] 7.59 10*3/uL Normal 4.00-10.60 [facility] Comment on above: Performed By: #### 5 0103 #### [facility] [address] [place] [address], [place] COMP METABOLIC PANELon 01-23 Albumin [Mass/Vol] 4.4 g/dL Normal 3.5-5.7 [facility] Comment on above: Performed By: #### 4 6413, 64726, 45537 #### [facility] [address] [place] [address], [place] ALKALINE PHOSPH 64 IU/L Normal 34-[address] [facility] Comment on above: Performed By: #### 4 6413, 67772, 17145 #### [facility] [address] [place] [address], [place] ALT [Catalytic activity/Vol] 13 U/L Normal 7-52 [facility] Comment on above: Performed By: #### 4 6413, 46124, 76632 #### [facility] [address] [place] [address], [place] AST [Catalytic activity/Vol] 14 U/L Normal 13-39 [facility] Comment on above: Performed By: #### 4 6413, 22831, 95908 #### [facility] [address] [place] [address], [place] Bilirubin [Mass/Vol] 0.4 mg/dL Normal 0.3-1.0 [facility] Comment on above: Performed By: #### 4 6413, 01981, 09066 #### [facility] [address] [place] [address], [place] Calcium [Mass/Vol] 9.2 mg/dL Normal 8.6-10.3 [facility] Comment on above: Performed By: #### 4 6413, 99519, 51936 #### [facility] [address] [place] [address], [place] Chloride [Moles/Vol] 105 mmol/L Normal 98-107 [facility] Comment on above: Performed By: #### 4 6413, 65480, 89357 #### [facility] [address] [place] [address], [place] CO2 [Moles/Vol] 28 mmol/L Normal 21-31 [facility] Comment on above: Performed By: #### 4 6413, 74793, 54731 #### [facility] [address] [place] [address], [place] Creatinine [Mass/Vol] 0.90 mg/dL Normal 0.60-1.20 [facility] Comment on above: Performed By: #### 4 6413, 86061, 29241 #### [facility] [address] [place] [address], [place] GFR/1.73 sq M predicted among blacks MDRD (S/P/Bld) [Vol rate/Area] mL/min/{1.73_m2} Normal >60 [facility] Comment on above: Performed By: #### 4 6413, 49216, 51806 #### [facility] [address] [place] [address], [place] GFR/1.73 sq M predicted among non-blacks MDRD (S/P/Bld) [Vol rate/Area] mL/min/{1.73_m2} Normal >60 [facility] Comment on above: Performed By: #### 4 6413, 75047, 61096 #### [facility] [address] [place] [address], [place] Glucose [Mass/Vol] 86 mg/dL Normal 70-100 [facility] Comment on above: Performed By: #### 4 6413, 17438, 33575 #### [facility] [address] [place] [address], [place] Potassium [Moles/Vol] 3.9 mmol/L Normal 3.5-5.1 [facility] Comment on above: Performed By: #### 4 6413, 80801, 31416 #### [facility] [address] [place] [address], [place] Protein [Mass/Vol] 7.1 g/dL Normal 6.0-8.3 [facility] Comment on above: Performed By: #### 4 6413, 62117, 39217 #### [facility] [address] [place] [address], [place] Sodium [Moles/Vol] 138 mmol/L Normal 136-145 [facility] Comment on above: Performed By: #### 4 6413, 23851, 46796 #### [facility] [address] [place] [address], [place] Urea nitrogen [Mass/Vol] 11 mg/dL Normal 7-25 [facility] Comment on above: Performed By: #### 4 6413, 59803, 96686 #### [facility] [address] [place] [address], [facility] LIPID PROFILEon 01-23-2021 Cholesterol [Mass/Vol] 162 mg/dL Normal 120-200 [facility] Comment on above: Result Comment: CHOL ESTEROL REFERENCE RANGE: 20 YEARS AND OLDER CARDIOVASCULAR RISK Less than 200 mg/dl Low Risk 200 to 239 mg/dl Borderline Risk 240 mg/dl and greater High Risk Performed By: #### 4 6413, 83888, 85397 #### [facility] [address] [place] [address], [place] Cholesterol in HDL [Mass/Vol] 38 mg/dL Normal 23-92 [facility] Comment on above: Result Comment: Slig ht variation in normal range could be due to gender and/or age. HDL CHOLESTEROL REFERENCE RANGE: 20 years and older Cardiovascular Risk > or =60 mg/dL Desirable 40 TO 59 mg/dL Low Risk <40 mg/dL High Risk Performed By: #### 4 6413, 73531, 15095 #### [facility] [address] Cholesterol in LDL [Mass/Vol] 111 mg/dL Normal 0-130 [facility] Comment on above: Result Comment: LDL IS A CALCULATION LDL IS ONLY VALID IF THE TRIG IS LESS THAN 400. Performed By: #### 4 6413, 78278, 55977 #### [facility] [address] [place] [address], [facility] Cholesterol.total/C holesterol in HDL [Mass ratio] 4.3 {ratio} Normal 0.0-4.5 [facility] Comment on above: Performed By: #### 4 6413, 86059, 44044 #### [facility] [address] [facility] [address] NON-HDL CHOLESTEROL 124 mg/dL Normal [facility] Comment on above: Performed By: #### 4 6413, 30485, 34701 #### [facility] [address] [facility] Triglyceride [Mass/Vol] 66 mg/dL Normal 40-149 [facility] Comment on above: Result Comment: TRIG LYCERIDE REFERENCE RANGE: 20 YEARS AND OLDER CARDIOVASCULAR RISK LESS THAN 150 mg/dl LOW RISK 150 TO 199 mg/dl BORDERLINE RISK 200 mg/dl AND GREATER HIGH RISK Performed By: #### 4 6413, 77916, 65091 #### [facility] [address] [facility] VLDL CHOL 13 mg/dL Normal 0-40 [facility] Comment on above: Performed By: #### 4 6413, 54993, 59939 #### [facility] [address] [facility]. [address] TSH3 WITH REFLEX FT4on 01-23 TSH 3RD GENERATION 1.73 uIU/mL Normal 0.34-5.60 [facility] Comment on above: Performed By: #### 4 6413, 96802, 08514 #### [facility] [address] [place] [address], [facility] Encounters Encounter Date Encounter Type Care Provider Facility Start: 08-26-2024 End: 08-30-2024 Telephone encounter Charlotte Link APRN-PRODUCTION CONSULTANT Work Phone: [facility] Start: 08-24-2024 End: 08-24-2024 Clinisync Result Encounter Barb CLOUD Work Phone: [facility] Unsolicited Start: 08-24-2024 End: 08-24-2024 Clinisync Result Encounter Barb CLOUD Work Phone: [facility] Unsolicited Start: 08-19-2024 End: 08-25-2024 Clinisync Result Encounter Barb CLOUD Work Phone: [facility] Unsolicited Start: 08-19-2024 End: 08-25-2024 Clinisync Result Encounter Barb CLOUD Work Phone: [facility] Unsolicited Start: 08-19-2024 ambulatory BARB STALLINGS Not Availa ble Start: 08-17-2024 End: 08-17-2024 ambulatory RO C WINDNAGEL Not Available Start: 08-10-2024 End: 08-10-2024 Patient encounter procedure ANP-BC Ro Windnagel Work Phone: [facility] [place] Work Phone: Start: 08-10-2024 End: 08-10-2024 ambulatory NON STAFF [facility] Work Phone: Start: 07-01-2024 End: 07-01-2024 ambulatory RO C WINDNAGEL Not Available Start: 06-25-2024 End: 06-25-2024 Patient encounter procedure ANP-BC Ro Windnagel Work Phone: [facility] [place] Work Phone: Start: 06-25-2024 End: 06-25-2024 ambulatory NON STAFF [facility] Work Phone: Start: 06-08-2024 End: 06-08-2024 ambulatory RO C WINDNAGEL Not Available Start: 06-01-2024 End: 06-01-2024 ambulatory RO C WINDNAGEL Not Available Start: 05-31-2024 End: 05-31-2024 [address] C WINDNAGEL [facility] Start: 05-13-2024 End: 05-13-2024 ambulatory RO C WINDNAGEL Not Available Start: 04-29-2024 End: 04-29-2024 [address] RO C WINDNAGEL Not Available Start: 02-17-2024 End: 02-17-2024 ambulatory REGINA RAMIREZI Not Available Start: 02-03-2024 End: 02-03-2024 ambulatory REMIGIO REAL Not Available Start: 07-08-2023 End: 07-09-2023 ambulatory Ro Windnagel Facility:[facility] [place] Start: 07-08-2023 End: 07-08-2023 Patient encounter procedure CAREN FULTON [facility] Start: 04-28-2023 ambulatory SAJAN SHAMMO Facility:[facility] [place] Start: 04-17-2023 End: 04-17-2023 ambulatory [facility] Start: 04-15-2023 End: 04-16-2023 ambulatory Ro Windnagel Facility[facility] Start: 04-10-2023 End: 04-10-2023 ambulatory [facility] Start: 03-04-2023 End: 03-05-2023 ambulatory SAJAN SHAMMO Facility:[facility] Start: 03-01-2023 Encounter for genera l adult medical examination without abnormal findings SAJAN SHAMMO [facility] Start: 02-25-2023 End: 02-26-2023 ambulatory SAJAN SHAMMO Facility:[facility] Start: 02-25-2023 End: 02-26-2023 Encounter for general adult medical examination without abnormal findings SAJAN SHAMMO Facility:[facility] Start: 02-13-2023 End: 02-14-2023 ambulatory SJAAN SHAMMO Facility:[facility] Procedures Date Procedure Procedure Detail Performing Clinician Start: 08-24-2024 ALL CBC WITH AUTO DIFF Barb CLOUD Work Phone: Start: 08-19-2024 IGP,APTIMA HPV,AGE GDLN Barb CLOUD Work Phone: Start: 08-10-2024 MR lumbar spine wo con ANP-BC Ro Windnagel Work Phone: Start: 08-10-2024 XR pre/post mri xray AN P-BC Ro Windnagel Work Phone: Start: 06-25-2024 MRI of cervical spin e without contrast ANP-BC Ro Windnagel Work Phone: Start: 04-17-2023 Follow-up visit Follow-up BELTRAN HUYNH Start: 07-22-2022 Microscopic observat ion [Identifier] in Cervix by Cyto stain Barb CLOUD Work Phone: Start: 07-01-2022 Microscopic observat ion [Identifier] in Cervix by Cyto stain Charlotte Link FILLER IN-PRODUCTION CONSULTANT Work Phone: [facility] [facility] [employer] RUBI DANIELS DONALDO Hysterectomy CARENYOUNG REILLYRY Tonsillectomy CAREN REILLYRY Plan of Treatment Date Care Activity Detail Author Start: 08-21-2028 Screening for malign ant neoplasm of cervix [facility] Start: 07-22-2025 Screening for malign ant neoplasm of cervix Pap Smear [facility] Start: 07-01-2025 Screening for malign ant neoplasm of cervix Pap Smear [facility] Start: 02-15-2025 End: 02-15-2025 Patient encounter procedure 02/15/2025 9:20 AM EDT Office Visit [facility] [address] [place] [address] Regina Ryan MD [address] [place] [address] [facility] Start: 11-09-2024 End: 11-09-2024 Patient encounter procedure 11/09/2024 3:00 PM EST Office Visit [facility] [address] [place] [address] Zac Tay, DO [address], [place] [address] [facility] Start: 09-08-2024 End: 09-08-2024 Patient encounter procedure 09/08/2024 11:10 AM EDT Office Visit [facility] [address] [place] [address] Remigio Real, DO [address] [place], [place] [id number] [facility] Start: 07-25-2024 COVID-19 Vaccine ( season) COVID-19 Vaccine ( season) [facility] Start: 07-25-2024 Influenza vaccination [facility] Start: 07-23-2023 Adult BMI Screening Adult BMI Screen ing [facility] Start: 2001 Depression Screening Depression Scre ening [facility] Start: 2001 Tobacco Screening Tobacco Screening [facility] Start: 2000 DTaP,Tdap and Td Vaccines (6 - Tdap) DTaP,Tdap and Td Vaccines (6 - Tdap) [facility] Immunizations Immunization Date Immunization Notes Care Provider Fa cilitanna 08-25-2013 influenza virus vaccine, unspecified formulation Charlotte AUSTIN Work Phone: [facility] Payers Date Payer Category Payer Self-pay 2022 Unknown 1990 Unknown [id number] 2.16.84 [id number] 1989 Unknown [id number] 2.16.84 [id number] 1989 Unknown [id number] 2.16.84 0.1.206624.3.579.2.593 1989 Unknown [id number] 2.16.8 40.1.809649.3.579.2.727 1989 Unknown [id number] 2.16.8 40.1.450172.3.579.2.727 1989 Unknown [id number] 2.16.8 40.1.130735.3.579.2.727 1989 Unknown [id number] 2.16.8 40.1.852208.3.579.2.1286 1989 Unknown [id number] 2.16.84 0.1.105165.3.579.2.1259 1989 Unknown [id number] 2.16.84 0.1.712349.3.579.2.1259 1989 Unknown [id number] 2.16.84 0.1.406745.3.579.2.1259 1989 Unknown [id number] 2.16.84 0.1.524596.3.579.2.1259 1989 Unknown [id number] 2.16.84 0.1.116309.3.579.2.1259 1989 Unknown [id number] 2.16.84 0.1.986007.3.579.2.1259 1989 Unknown [id number] 2.16.84 0.1.972638.3.579.2.1259 1989 Unknown [id number] 2.16.84 0.1.806991.3.579.2.1259 1989 Unknown [id number] 2.16.84 0.1.546799.3.579.2.1259 1959 Unknown [id number] 1959 Unknown [id number] Unknown [id number] 2.16.8 40.1.799712.3.579.2.531 Unknown [id number] 2.16.8 40.1.026550.3.579.2.531 Social History Date Type Detail Facility Tobacco smoking status [facility] Start: 01-04-2021 End: 04-28-2024 Sex Assigned At Female [facility] Start: 1990 Sex Assigned At Female [facility] Start: 07-01-2024 Tobacco smoking status NHIS Ex-smoker [facility] Start: 07-25-2007 End: 06-24-2023 History of tobacco use Current smoker [facility] Start: 07-25-2007 End: 06-24-2023 History of tobacco use Cigarette Smoker [facility] Start: 01-04-2021 End: 07-01-2024 Cigarettes smoked current (pack per day) - Reported 1.5 [facility] Start: 07-12-2019 End: 07-01-2024 Tobacco use and exposure Smokeless tobacco non-user [facility] Start: 08-12-2022 End: 08-19-2024 Alcoholic beverage intake Current drinker of alcohol (finding) [facility] How often to you hav e a drink containing alcohol? Monthly or less [facility] How many standard drinks containing alcohol do you have on a typical day? 1 or 2 [facility] How often do you hav e 6 or more drinks on 1 occasion? Never [facility] Start: 07-12-2022 Gender identity Identifies as female gender (finding) [facility] Start: 07-12-2022 Sexual orientation Heterosexual (finding) [facility] Start: 12-25-2016 Tobacco smoking status [facility] Smokes tobacco daily [facility] Start: 07-01-2022 Alcohol Comment rare [facility] Clinical Notes 04-10-2023 to 08-26-2024 Telephone Encounter - Shana Cain - 08/26/2024 2:47 PM EDTTelephone Encounter - [facility] [place] - 08/26/2024 2:47 PM EDT Note Date & Type Note Facility 08-26-2024 Miscellaneous Notes Patient called she is looking for a new provider. She has been having ongoing double vision, she has seen neuro, [facility], ect. Nobody has an idea what is is going and is freaking out. I want to get her with either you or furlong he's booking out till about October I would feel she is more appropriate for a physician at this time. Would you be okay to accept? documented in this encounter [facility]24 Telephone encounter Note Patient called she is looking for a new provider. She has been having ongoing double vision, she has seen neuro [facility], ect. Nobody has an idea what is is going and is freaking out. I want to get her with either you or furlong he's booking out till about October [facility] 08-26-2024 Telephone encounter Note I would feel she is more appropriate for a physician at this time. [facility] Work Phone: 08-26-2024 Telephone encounter Note Would you be okay to accept? [facility] 04-17-2023 Note Attestation signed by Pavel Ball MD at 04/21/2023 10:30 AM I personally saw and examined the patient on the same date of service as resident/fellow . I discussed the findings and therapeutic plan with the resident/fellow . I agree with the documentation, except for any edits/updates below. Teaching Physician's Revisions: Subjective Patient ID: Eloisa NATARAJAN is a 32 y.o. female who presents for No chief complaint on file.. HPI 32 y.o. year old female with history of anxiety, depression, ADHD, and PTSD referred for evaluation of her polyarthralgias. Other work up including complement levels, CMP, CBC, and VETO were WNL. WILMA titer remains in process. 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 The episcleritis of her right eye has [...] - suggested she seek evaluation by an retail cosmetics sales beauty advisor for her episcleritis; currently no significant extraintestinal [...] Dr. Quinn Tripathi MD Rheumatology Fellow, PGY-4 [facility] 04-10-2023 Note Attestation signed by Pavel Ball MD at 04/13/2023 7:07 PM I personally saw and examined the patient on the same date of service as resident/fellow . I discussed the findings and therapeutic plan with the resident/fellow . I agree with the documentation, except for any edits/updates below. Teaching Physician's Revisions: Subjective Patient ID: Eloisa Avalos is a 32 y.o. 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 [facility] Evaluation + Plan note No data available for this section [facility] Evaluation note No assessment inform [facility] Work Phone: Hospital Discharge instructions No data available for this section [facility] Instructions Not on filedocumente d in this encounter [facility] Progress note No data available for this section [facility] Summary Purpose Family History No Family History Records FoundNo Family History Records FoundNo Family History Records FoundNo Family History Records FoundNo Family History Records FoundNo Family History Records FoundNo Family History Records Found Advance Directives Advance Directive Response Recorded Date/ Time Advance Directives No June 08 1:55pm Date Activated Date Inactivated Comments 07/13/2019 12:51 AM 07/13/2019 7:56 PM Chief Complaint and Reason for Visit Chief Complaint M54.81 M50.30 Chief Complaint M54.81 M50.30 r26.9 m54.50 g89.29 n39.498 r20.0 Additional Source Comments INFORMATION SOURCE (unrecogn ized section and content) DATE CREATED AUTHOR 03/09/2021 [facility] DATE CREATED AUTHOR AUTHOR'S ORGANIZ ATION 03/09/2023 [facility] DATE CREATED AUTHOR AUTHOR'S ORGANIZ ATION 07/10/2023 [place] DATE CREATED AUTHOR AUTHOR'S ORGANIZ ATION 08/16/2023 [facility] DATE CREATED AUTHOR AUTHOR'S ORGANIZ ATION 06/08/2024 [facility] DATE CREATED AUTHOR AUTHOR'S ORGANIZ ATION 08/16/2024 [facility] DATE CREATED AUTHOR AUTHOR'S [...] August 10, 2024 End: August 10, 2024 Tufting Machine Operator Relationship Specialty Start Date End Date Unallocated, [facility] Provider[place] [address] PCP - General Family Medicine 08/17/24 Tufting Machine Operator Relationship Specialty Start Date End Date Unallocated, [facility] Arti, [address] [place], [place] [id number] PCP - General Family Medicine 08/17/24 Tufting Machine Operator Relationship Specialty Start Date End Date No Pcp, [place] [address] PCP - General Family Medicine 05/31/24 Goals (unrecognized section and content) Goals may [...] BE BASED ON THE PRIMARY CLINICAL RECORDS. [facility] [employer] provides no warranty or guarantee of the accuracy or completeness of information in this document.
[2024-09-06 11:41] VITALS: BP 182/106; PULSE 86; TEMP 36.7; O2SAT 98; BMI 34.9
--- NOTE | 2024-09-06 13:07 | CT_ITS ---
The [address] [address] Patient Name: KIERRA HAIRSTON MRN: [id number] date: 1990 Sex: F Assigned Patient Location: ER Current Patient Location: [facility] Accession/Order Number: [id number] Exam Date: 09/06/2024 13:43 Report Date: 09/06/2024 15:05 At the request of: JERO HINSON Procedure: CT angio neck CT ANGIOGRAM NECK WITH CONTRAST, 09/06/2024. HISTORY: Pain on right side of neck. COMPARISON: None. TECHNIQUE: Postcontrast axial CT angiogram images obtained through the neck. Reconstructed MIP images obtained in the axial, sagittal and coronal planes. Carotid stenosis measured according to NASCET criteria. Dose reduction techniques were achieved by using automated exposure control and/or adjustment of mA and/or kV according to patient size and/or use of iterative reconstruction technique. FINDINGS: The common carotid arteries are normal in caliber. The carotid bifurcations are normal. The internal carotid arteries are normal in caliber. No carotid artery stenosis in the neck. Origins of the vertebral arteries are normal. Vertebral arteries are normal in caliber. No vertebral artery stenosis in the neck. No acute carotid or vertebral artery dissection. No neck masses or lymphadenopathy. No soft tissue swelling or inflammation. The cervical spine is unremarkable. No suspicious osseous lesion. CT/CT angio neck IMPRESSION: Normal CT angiogram of the neck. No carotid or vertebral artery stenosis. No acute dissection. Electronically authenticated by: JENISE HANEY Date: 09/06/2024 15:05
[2024-09-06 13:31] LABS: Basophils Absolute Auto 0.1 10^3/uL (0.0-0.1); Basophils Percent Auto 0.6 % (0.2-2.0); Eosinophils Absolute Auto 0.2 10^3/uL (0.0-0.7); Eosinophils Percent Auto 2.3 % (0.9-7.0); Hemoglobin 13.2 g/dL (12.0-16.0); Immature Granulocytes Abs Auto 0.04 10^3/uL (0.00-0.03); Immature Granulocytes Pct Auto 0.4 % (0.0-0.5); Lymphocytes Percent Auto 20.1 % (20.5-60.0); Mean Corpuscular HGB Conc 33.8 g/dL (29.9-35.2); Mean Corpuscular Hemoglobin 29.4 pg (26.7-34.0); Mean Corpuscular Volume 86.9 fL (81.0-99.0); Mean Platelet Volume 10.9 fL (9.5-13.5); Monocytes Absolute Auto 0.6 10^3/uL (0.3-0.8); Monocytes Percent Auto 6.2 % (1.7-12.0); Neutrophils Percent Auto 70.4 % (43.0-75.0); Platelet Count 311 10^3/uL (150-450); Red Blood Count 4.49 10^6/uL (4.20-5.40); Red Cell Distribution Width 12.7 % (11.0-15.0); White Blood Count 9.9 10^3/uL (4.0-11.0)
[2024-09-06 13:34] LABS: Anion Gap 14.4; BUN Creatinine Ratio 8.3; Carbon Dioxide 23.3 mmol/L (21.0-32.0); Chloride 108 mmol/L (98-107); Estimated GFR (African America >60 (>=60 mL/min/1.73m^2); Estimated GFR (Non-African Ame >60 (>=60 mL/min/1.73m^2); Glucose 86 mg/dL (74-106); Potassium 3.7 mmol/L (3.5-5.1); Sodium 142 mmol/L (136-145)
--- NOTE | 2024-09-06 14:54 | ED_ITS ---
HPI HPI - General Adult General Chief complaint: Neck Pain/Injury Stated complaint: ABNORMAL LABS, NECK PAIN Time Seen by Provider: 09/06/24 12:56 Source: patient and family Mode of arrival: walk-in Limitations: no limitations History of Present Illness HPI narrative: 33-year-old female to the emergency department with multiple medical complaints. She has been having a ongoing issue with intermittent double vision for which she is under the care of both neurology and ophthalmology and has received comprehensive evaluation. What brought her to the emergency department today was a feeling of fullness in her right sided jaw/neck just at the angle of the mandible. She reports she notices it more when she sleeps on that side. She reports decreased saliva on the right side of her mouth. She reports occasional metallic taste on that side. She reports there is a discomfort and occasional pulsing on that side. Related Data Home Medications ?Medication ?Instructions ?Recorded ?Confirmed clindamycin phosphate 1 % lotion topical 09/06/24 metformin 500 mg tablet,extended mg PO 09/06/24 release 24 hr Previous Rx's ?Medication ?Instructions ?Recorded ibuprofen 800 mg tablet 800 mg PO Q8H PRN pain #20 tabs 09/29/23 Allergies Allergy/AdvReac Type Severity Reaction Status Date / Time No Known Drug Allergies Allergy Verified 09/06/24 11:48 Opioid HPI Opioid Management Most Recent Opioid Data: Last Pain Scale 6 09/29/23 17:21 09/29/23 Review of Systems ROS Status of ROS 10 or more systems reviewed and unremark able except as noted in history and below PFSH PFSH Social History Smoking status: Never smoker Little interest or pleasure in doing things: not at all Feeling down, depressed, or hopeless: not at all Exam Narrative Exam Narrative: VITALS: I have reviewed the triage vital signs. GENERAL: Well developed, well appearing adult female in no acute distress. NEURO: Alert and oriented. Moves all extremities. Face is symmetric and expressive. EYES: PERRL. No scleral icterus or conjunctival injection. No discharge. HENT: Normocephalic, atraumatic. Hearing is grossly intact. Nares grossly patent and without discharge. Mucous membranes moist. [place]'s duct normal bilaterally. Uvula midline. No unilateral peritonsillar swelling. No obvious dental lesions. NECK: No JVD. Patient moves neck without restriction. No appreciable lymphade nopathy. No appreciable masses or lesions. CARDIO: Rhythm regular. Normal rate. No murmur, rub, or gallop. Pulses equal bilaterally in the upper and lower extremity. No lower extremity edema. PULM: Lungs clear to auscultation in all sorensen. No wheezes, rales, or rhonchi. No conversational dyspnea. No splinting, stridor, or accessory muscle use. GI/: Abdomen is soft and non-tender. Normoactive bowel sounds. EXTREMITIES: Symmetric muscle bulk. No joint swelling. No clubbing, cyanosis, or deformity. SKIN: Warm and dry. Normal turgor. No rash or lesions appreciated. PSYCH: Mood, affect, and interaction is appropriate to the setting. Constitutional Vital Signs, click to edit/add: Last Vital Signs Temp 98.0 F 09/06/24 11:41 Pulse 86 09/06/24 11:41 Resp 18 09/06/24 11:41 BP 182/106 H 09/06/24 11:41 Pulse Ox 98 09/06/24 11:41 O2 Del Method Room Air 09/06/24 11:41 Course Vital Signs Vital signs: Vital Signs Temperature 98.0 F 09/06/24 11:41 Pulse Rate 86 09/06/24 11:41 Respiratory Rate 18 09/06/24 11:41 Blood Pressure 182/106 H 09/06/24 11:41 Pulse Oximetry 98 09/06/24 11:41 Oxygen Delivery Method Room Air 09/06/24 11:41 Temperature 98.0 F 09/06/24 11:41 Pulse Rate 86 09/06/24 11:41 Respiratory Rate 18 09/06/24 11:41 Blood Pressure 182/106 H 09/06/24 11:41 Pulse Oximetry 98 09/06/24 11:41 Oxygen Delivery Method Room Air 09/06/24 11:41 Medical Decision Making MDM Narrative Medical decision making narrative: 33-year-old female to the emergency department chief complaint of issues in her right sided neck/jaw. Vital stable, the patient is afebrile. She has ongoing chronic vision/neurologic issues which she has been worked up for. She is very anxious and trying To connect them to the acute problem some swelling and some discomfort in her right sided jaw/neck. Will order a CTA to rule out vascular lesion or mass that she is concerned about. There is no appreciable abnormality on exam. Clinical picture is that of sialadenitis. CBC and chemistry are unremarkable. No acute abnormality. CTA without any acute findings. Reassurance was given to the patient. She may continue to follow-up with her current specialist for her ocular issues. She is given ENT follow-up should this not resolved. Recommended usual treatment with sialagogues, NSAIDs. She is already on an antibiotic. Return precautions were discussed. All questions were answered. The patient was discharged home. Lab Data Lab results reviewed: Yes I reviewed the patient's lab results Labs: Lab Results 09/06/24 Range/Units 13:15 WBC 9.9 (4.0-11.0) 10^3/uL RBC 4.49 (4.20-5.40) 10^6/uL Hgb 13.2 (12.0-16.0) g/dL Hct 39.0 (36.0-48.0) % MCV 86.9 (81.0-99.0) fL MCH 29.4 (26.7-34.0) pg MCHC 33.8 (29.9-35.2) g/dL RDW 12.7 (11.0-15.0) % Plt Count 311 (150-450) 10^3/uL MPV 10.9 (9.5-13.5) fL Neut % (Auto) 70.4 (43.0-75.0) % Lymph % (Auto) 20.1 L (20.5-60.0) % [place] % (Auto) 6.2 (1.7-12.0) % Eos % (Auto) 2.3 (0.9-7.0) % Baso % (Auto) 0.6 (0.2-2.0) % Neut # (Auto) 7.0 H (1.4-6.5) 10^3/uL Lymph # (Auto) 2.0 (1.2-3.8) 10^3/uL [place] # (Auto) 0.6 (0.3-0.8) 10^3/uL Eos # (Auto) 0.2 (0.0-0.7) 10^3/uL Baso # (Auto) 0.1 (0.0-0.1) 10^3/uL Abs Immat Gran (auto) 0.04 H (0.00-0.03) 10^3/uL Imm/Tot Granulo (auto) 0.4 (0.0-0.5) % Sodium 142 (136-145) mmol/L Potassium 3.7 (3.5-5.1) mmol/L Chloride 108 H (98-107) mmol/L Carbon Dioxide 23.3 (21.0-32.0) mmol/L Anion Gap 14.4 BUN 7.0 (7.0-18.0) mg/dL Creatinine 0.84 (0.55-1.02) mg/dL Est GFR ( Amer) >60 (>=60 mL/min/1.73m^2) Est GFR (Non-Af Amer) >60 (>=60 mL/min/1.73m^2) BUN/Creatinine Ratio 8.3 Glucose 86 (74-106) mg/dL Calcium 9.0 (8.5-10.1) mg/dL Imaging Data CTA neck: Radiologist's impression: ITS Impressions Neck CTA 09/06/24 13:07 IMPRESSION: Normal CT angiogram of the neck. No carotid or vertebral artery stenosis. No acute dissection. Electronically authenticated by: JENISE HANEY Date: 09/06/2024 14:32 Discharge Plan Discharge Chief Complaint: Neck Pain/Injury Clinical Impression: Sialadenitis Patient Disposition: Home, Self-Care Time of Disposition Decision: 14:50 Condition: Good Mode of Transportation: Private Vehicle Prescriptions / Home Meds: No Action ibuprofen 800 mg tablet 800 mg PO Q8H PRN (Reason: pain) Qty: 20 0RF metformin 500 mg tablet extended release 24 hr PO clindamycin phosphate 1 % lotion TOPICAL Print Language: Romansh Instructions: Sialoadenitis (ED) Additional Instructions: Sour candy as discussed. Follow-up with ENT as needed. Continue your antibiotics. Call the office of your primary care doctor to arrange for follow-up within the above-stated timeframe. Your ED visit was focused on your acute issue and does not replace primary care. You should review your labs, imaging, and diagnoses from this ED visit with your primary care physician. There may be non-emergent/ incidental findings that need further evaluation. You should review your vital signs including blood pressure with your PCP. If you were prescribed medications you should discuss possible side-effects and drug interactions with your pharmacist. Call 911 or go to the nearest Emergency Department if you develop any new or worsening symptoms. Referrals: [facility] [Other] - 1 week Willam Walter PRODUCER DIRECTOR [Primary Care Provider] - 1 week
== END 2024-09-06 15:10 | disposition home or self-care (01) ==
PROVIDERS: Emergency Provider Student in an Organized Health Care Education/Training Program; PCP Nurse Practitioner Primary Care
DX: K11.20 Sialoadenitis, unspecified (principal)
CPT/HCPCS: 36415; 70498; 80048; 85025; 99285; Q9967

== ENCOUNTER 2024-09-10 15:37 | Emergency (ER) | payer BC, SELFPAY ==
[2024-09-10 15:40] VITALS: BP 158/98; PULSE 99; TEMP 36.7; O2SAT 100; BMI 34.9
--- OUTSIDE RECORDS SUMMARY | 2024-09-10 15:57 | XMS_ITS | CCD ---
Author Organization [facility] Care Team Providers Care Chucking Machine Operator Name Role Phone SHAMMO, SAJAN Admitting Unavailable SHAMMO, SAJAN Attending Unavailable SHAMMO, SAJAN Primary Care Unavailable Mp Aceves Consulting Unavailable SHAMMO, SAJAN Consulting Unavailable SHAMMO, SAJAN Admitting Unavailable SHAMMO, SAJAN Attending Unavailable SHAMMO, SAJAN Primary Care Unavailable LiterMp Consulting Unavailable SHAMMO, SAJAN Consulting Unavailable SHAMMO, [...] Care Unavailable Windnagel, ANP-BC Ro Attending Provider [phone] NON STAFF Primary Care Provider Unavailabl e Windnagel, SEGMENT ASSEMBLER-C Ro C Attending Provider [phone] NON STAFF Primary Care Unavailable Windnagel, Ro C Referring Unavailable Windnagel, Ro Admitting Unavailable Windnagel, Ro Attending Unavailable Windnagel, Ro C Admitting Unavailable Windnagel, Ro C Attending Unavailable NON STAFF Primary Care Unavailable REMIGIO REAL Attending Unavailable REGINA RYAN Attending Unavailable WINDNAGEL, RO C Attending Unavailable WINDNAGEL, RO C Referring Unavailable RO PATEL Attending Unavailable RO PATEL Attending Unavailable RO PATEL Attending Unavailable RO PATEL Attending Unavailable BARB STALLINGS Attending Unavailable Unallocated , Noms Provider Primary Care Provi jim Unallocated Cong GALLO Provider Primary Care Provi jim No Pcp, No Pcp Primary Care Provider Unavailabl e Allergies Allergy Classification Reported Allergen(s) Allergy Type Date of Onset Reaction(s) Facility (5 sources) Dextromethorphan / guaiFENesin; Translations: [DEXTROMETHORPHAN- AIFENESIN] Drug Allergy 3 [facility] Repository Medications Current Medications Medication Drug Class(es) Dates Sig (Normalized) Sig (Original) ergocalciferol 1.25 mg oral capsule (4 sources) Provitamin D2 Compound Start: 05-31-2024 End: 05-31-2025 take 1 capsule by mouth every week ergocalciferol (Drisdol) 1.25 MG (93492 UT) capsule Indications: Vitamin D deficiency Take 1 capsule (1.25 mg) by mouth 1 (one) time per week 12 capsule 3 05/31/2024 09/08/2024 Discontinued hydrOXYzine hydrochloride 10 mg oral tablet (5 sources) Antihistamine Start: 07-21-2009 take 1 tablet by mouth three times daily as needed hydrOXYzine HCl (Atarax) 10 MG tablet Take 10 mg by mouth 3 (three) times a day as needed. 07/21/2009 Active ibuprofen 800 mg oral tablet (2 sources) Nonsteroidal Anti-inflammatory Drug Start: 09-04-2024 take 1 tablet by mouth every six hours as needed for pain ibuprofen 800 MG tablet Take 800 mg by mouth every 6 (six) hours if needed for moderate pain 09/04/2024 Active levoFLOXacin 250 mg oral tablet (2 sources) Quinolone Antimicrobial Start: 09-04-2024 take 2 tablets by mouth once daily levoFLOXacin (Levaquin) 250 MG tablet Take 2 tablets by mouth Daily 09/04/2024 Active 24 hr metFORMIN hydrochloride 500 mg extended release oral tablet (4 sources) Biguanide Start: 08-19-2024 End: 08-19-2025 take 1 tablet by mouth every twenty-four hours in the morning metFORMIN XR (Glucophage-XR) 500 MG 24 hr tablet Indications: PCOS (polycystic ovarian syndrome) Take 1 tablet (500 mg) by mouth in the morning and 1 tablet (500 mg) before bedtime. Do not crush, chew, or split.. 30 tablet 11 08/19/2024 08/19/2025 Active 24 hr venlafaxine 37.5 mg extended release oral capsule (2 sources) Serotonin and Norepinephrine Reuptake Inhibitor Start: 09-08-2024 End: 09-08-2025 take 1 capsule by mouth once daily venlafaxine XR (Effexor XR) 37.5 MG 24 hr capsule Indications: Mood disorder (CMS/HCC) Take 1 capsule (37.5 mg) by mouth Daily Do not crush or chew. 30 capsule 11 09/08/2024 09/08/2025 Active Problems Active Problems Problem Classification Problem Date Documented Date Episodic/Chronic Anxiety disorders (6 sources) Anxiety; Translations: [Posttraumatic stress disorder] Onset: 04-28-2024 07-03-2023 Chronic Attention-deficit, conduct, and disruptive behavior disorders (1 source) Attention deficit hyperactivity disorder 07-03-2023 Chronic Blindness and vision defects (5 sources) Diplopia; Translations: [Diplopia] Onset: 05-31-2024 08-17-2024 Episodic Conditions associated with dizziness or vertigo (4 sources) Dizziness; Translations: [Dizziness and giddiness] Onset: 08-17-2024 08-17-2024 Episodic Endometriosis (2 sources) Endometriosis (clinical); Translations: [Endometriosis, unspecified] Onset: 06-04-2016 07-03-2023 Chronic Female infertility (3 sources) Female infertility; Translations: [Female infertility, unspecified] 07-03-2023 Chronic Genitourinary symptoms and ill-defined conditions (1 source) Nocturnal enuresis; Translations: [NOCTURNAL ENURESIS] Onset: 03-09-2023 Chronic Menstrual disorders (2 sources) Irregular periods; Translations: [Irregular menstruation, unspecified] 09-08-2024 Chronic Mood disorders (4 sources) Depressive disorder; Translations: [Depressive disorder] Onset: 07-13-2019 07-03-2023 Chronic Other endocrine disorders (2 sources) Polycystic ovary syndrome; Translations: [Polycystic ovarian syndrome] 09-08-2024 Chronic Other nervous system disorders (2 sources) Carpal tunnel syndrome, bilateral upper limbs; Translations: [Carpal tunnel syndrome, bilateral upper limbs] Onset: 04-10-2023 Chronic Other nervous system disorders (1 source) Polyneuropathy, unspecified; Translations: [Polyneuropathy, unspecified] Onset: 05-31-2024 Chronic Other nervous system disorders (4 sources) Skin sensation disturbance; Translations: [Anesthesia of skin] Onset: 08-17-2024 08-17-2024 Episodic Residual codes; unclassified (1 source) Family history of other diseases of the musculoskeletal system and connective tissue; Translations: [FAM HX OTH DZ MUSK SYS AND CNCTV TISS] Onset: 03-09-2023 Episodic Spondylosis; intervertebral disc disorders; other back problems (16 sources) Pain in thoracic spine; Translations: [Occipital [...] Onset: 04-10-2023 Episodic Other nervous system disorders (4 sources) Abnormal gait; Translations: [Unspecified abnormalities of [...] GDLNon AGE GDLN ACOG TESTING Note . [facility] Comment on above: TESTS RESULT FLAG UN ITS REF RANGE LAB Clinician Provided Cytology Information Source.............Cervix;Endocervix No. of containers..01 ThinPrep Vial Age Algo ACOG Carmen... FLAG LEGEND: L-Low Normal,H-High Normal,LL-Alert Low,HH-Alert High <-Panic Low,>-Panic High,A-Abnormal,AA-Critical Abnormal Performed at: 01 =[address] [address] Kiesha Monroe MD, HPV APTIMA Negative Negative [facility] Comment on above: This nucleic acid am plification test detects fourteen high- risk HPV types (16,18,31,33,35,39,45,51,52,56,58,59,66,68) without differentiation. Performed at: =[address] [id number] Telephone Switchboard Operator: Kiesha Monroe MD, Phone: [phone] Performed at: [address] [id number] Telephone Switchboard Operator: Kiesha Monroe MD, Phone: [phone] IGP, APTIMA HPV, RFX 16/18,45 Note . [facility] Comment on above: TESTS RESULT FLAG UN ITS REF RANGE LAB DIAGNOSIS: 02 NEGATIVE FOR INTRAEPITHELIAL LESION OR MALIGNANCY. Specimen adequacy: 02 Satisfactory for evaluation. Endocervical and/or squamous metaplastic cells (endocervical component) are present. Performed by: 02 Samantha Garcia, Quarter Supervisor ([facility]) . 02 Note: Note 02 The Pap smear is a screening test designed to aid in the detection of premalignant and malignant conditions of the uterine cervix. It is not a diagnostic procedure and should not be used as the sole means of detecting cervical cancer. Both false-positive and false-negative reports do occur. Test Methodology: Note 02 The Sealed(R) Business Continuity Director was unable to read this specimen. Therefore a manual review was performed. FLAG LEGEND: L-Low Normal,H-High Normal,LL-Alert Low,HH-Alert High <-Panic Low,>-Panic High,A-Abnormal,AA-Critical Abnormal Performed at: [address] [address] Kiesha Monroe MD, HPV Genotype Reflex Note 02 Criteria not met, HPV Genotype not performed. Criteria not met, HPV Genotype not performed. BRUSH-SPATULA CERVIX ENDOCERVIX [facility] ALL CBC WITH AUTO DIFFon BASOPHILS ABSOLUTE AUTO 0.0 [facility] Basophils/100 WBC (Bld) 0.6 % 0.2 - 2.0 % [facility] Eosinophils/100 WBC (Bld) 3.2 % 0.9 - 7.0 % [facility] Erythrocyte distribution width (RBC) [Ratio] 12.8 % 11.0 - 15.0 % [facility] Hematocrit (Bld) [Volume fraction] 38.3 % 36.0 - 48.0 % [facility] Hemoglobin (Bld) [Mass/Vol] 12.9 g/dL 12.0 - 16.0 g/dL [facility] IMMATURE GRANULOCYTES ABS AUTO 0.02 [facility] Immature granulocytes/100 WBC (Bld) 0.3 % 0.0 - 0.5 % [facility] LYMPHOCYTES ABSOLUTE AUTO 1.7 [facility] Lymphocytes/100 WBC (Bld) 24.0 % 20.5 - 60.0 % [facility] MCH (RBC) [Entitic mass] 29.4 pg 26.7 - 34.0 pg [facility] MCHC (RBC) [Mass/Vol] 33.7 g/dL 29.9 - 35.2 g/dL [facility] MCV (RBC) [Entitic vol] 87.2 fL 81.0 - 99.0 fL [facility] MONOCYTES ABSOLUTE AUTO 0.4 [facility] Monocytes/100 WBC (Bld) 6.1 % 1.7 - 12.0 % [facility] NEUTROPHILS ABSOLUTE AUTO 4.8 [facility] Neutrophils/100 WBC (Bld) 65.8 % 43.0 - 75.0 % [facility] Platelet mean volume (Bld) [Entitic vol] 11.1 fL 9.5 - 13.5 fL [facility] EO # 0.2 [facility] PLT [address] [facility] RBC 4.39 [facility] WBC 7.2 [facility] XR pre/post mri xrayon 08-10 XR pre/post mri xray [facility] Main [address] [address] MRI Report Signed Patient: Eloisa Natarajan MR#: [id number] 35 : 1990 Acct:[id number] Age/Sex: 33 / F ADM Date: 08/10/24 Loc: MR Room: Type: REG CLI Attending Dr: Ro MAGDALENO Copies to: RASTA Arzola Ordering Provider: RASTA Arzola Date of Service: 08/10/24 MR/MR lumbar spine wo con: R26.9, M54.50, N39.489, R20.0 ([id number]) XR/XR pre/post mri xray: R26.9, M54.50, N39.489, [...] Eben Morel M.D.08/10/2024 8:33 AM Dictation Location: [place] [address] Transcribed By: [facility] 08/10/2433 Dictated By: Eben Morel DO 08/10/2428 Signed By: 08/10/24832 [facility] MR cervical spine wo conon 0 06-25-2024 MR cervical spine wo con [facility] Main Sawyer [address] [place] [address] MRI Report Signed Patient: Eloisa Natarajan MR#: [id number] 35 : 1990 Acct:[id number] Age/Sex: 33 / F ADM Date: 06/25/24 Loc: MR Room: Type: [facility] Attending Dr: Ro Patel Adult SEGMENT ASSEMBLER-BC Copies to: Ro Patel, RASTA Galvan Ordering Provider: RASTA Arzola Date of Service: [...] STENOSIS. Impression dictated by: Tony Yung Jr., D.OAlexx06/25/2024 6:59 PM Dictation Location: [place] [address] Transcribed By: [facility] 06/25/241858 Dictated By: Tony Yung Jr, DO 06/25/241852 Signed By: 06/25/241858 Normal [facility] Folate [Mass/Vol]on 05-31-20 FOLIC ACID 15.0 ng/mL Normal >5.8 [facility] Comment on above: Result Comment: NEW REFERENCE RANGE Performed By: #### 3 016-3, 2284-06, 2132-07, 98332-9 #### [facility] ([id number]) [address], [address] [place] [address] #### 48408-4 #### [facility] ([id number]) [address] [place] [address] Methylmalonate [Moles/Vol]on 05-31-2024 Methylmalonic Acid, QN, P 0.15 nmol/mL Normal <=0.40 [facility] Comment on above: Result Comment: NOTE ADDITIONAL INFORMATION This test was developed and its performance characteristics determined by [facility] in a manner consistent with CLIA requirements. This test has not been cleared or approved by the U.S. Food and Drug Administration. Test Performed by: [facility] [address] Telephone Switchboard Operator: Michele Lee Ph.D.; CLIA# [id number] Performed By: #### 3 016-3, 2284-06, 2132-07, 95327-8 #### [facility] ([id number]) [address] [place] [address] #### 31046-7 #### [facility] ([id number]) [address] [place] [address] TSH Qnon 05-31-2024 TSH 2.81 uIU/mL Normal 0.49-4.67 [facility] Comment on above: Performed By: #### 3 016-3, 2284-06, 2132-07, 99339-3 #### [facility] ([id number]) [address] [place] [address] #### 59850-3 #### [facility] ([id number]) [address] [place] [address] VITAMIN B12on 05-31-2024 Cobalamin (Vitamin B12) [Mass/Vol] 297 pg/mL Normal 180-914 [facility] Comment on above: Performed By: #### 3 016-3, 2284-06, 2132-07, 51811-4 #### [facility] ([id number]) [address], [address] [place] [address] #### 23420-3 #### [facility] ([id number]) [address] [place] [address] Vitamin D+Metabolites [Mass/ Vol]on 05-31-2024 VITAMIN D 25 HYD TOT 27.9 ng/mL Low 30-100 [facility] Comment on above: Result Comment: Vitamin D status 25 [place] Vitamin D Deficiency <20 ng/mL Insufficiency 20-29 ng/mL Sufficiency 30-100 ng/mL Toxicity >100 ng/mL NOTE: A pediatric reference range has not been established by the saw handle assembler of this kit. The [place] [employer] recommends a Vitamin D level of = or >20ng/mL in infants and children. Performed By: #### 3 016-3, 8, 2132-07, 28093-1 #### [facility] ([id number]) [address] [facility] [address] [place] [address] #### 88025-7 #### [facility] ([id number]) [address] [place] [address] MR BRAIN W AND WO CONTRAST ( [...] canal mass. ELECTRONICALLY SIGNED BY: Abner Ramirez, Normal Not Available 36on 08-14-2023 36 Pt called regarding lab results ordered by pt's OBGYN seeking fertility treatment. Pt is going to have labs faxed over. Normal [facility] Follow-Upon 04-17-2023 Follow-Up [id number] Philomena NATARAJAN 1990 F Date Provider Department Center 04/17/2023 [facility] RHEUM Lian [facility] Family History Problem Relation Age of Onset Anxiety disorder Mother Arthritis Mother Depression Mother Alcohol abuse Father Cancer Father Alcohol abuse Sister Anxiety disorder Sister Arthritis Mother's Sister Arthritis Mother's Brother Arthritis Mother's Sister Family Status - Relation Status Age at Mother Father Sister Mother's Sister Mother's Brother Mother's Sister Level of Service:98947 [place] OFFICE/OUTPATIENT ESTABLISHED MOD MDM 30-39 MIN () Reason for Visit and Comments: Follow-up [[id number]] - 2 week follow up Normal [facility] Neurology Forms- Texton 03-25 Neurology Forms- Text [id number]#[id number] D:127 Normal [facility] 36on 04-15-2023 36 Spoke w/ pt and she states the pharmacy gave her the run around stating they did not receive her rx from 04/10/23, and could not tell her if rx was sent under maiden name Just to be ob the safe side can you approve a new rx w/ her correct name, now that it has been updated in [facility] 36 Pt left VM in office regarding her name change. She states rx may not have been sent under correct name. Pt needs called to verify what med/s need sent to her pharmacy now that name has been updated in [facility] Consent for Treatmenton 03-25 Consent for Treatment [id number] D:127 Normal [facility] ANAon 04-10-2023 WILMA TITER <1:40 Normal <=1:40 [facility] Comment on above: Order Comment: By IF A Result Comment: Test performed using OMA IFA WILMA Hep-2 Test, a pre-standardized assay designed for the qualitative and semi-quantitative detection of antinuclear antibodies. Performed By: #### L [id number] #### [facility] ([facility]) [address] [place] [address] C3 COMPLEMENTon 04-10-2023 Magnesium [Mass/Vol] 125.00 mg/dL Normal 79.00-152.00 [facility] Comment on above: Performed By: #### L [id number] #### [facility] ([facility]) [address] [place] [address] C4 COMPLEMENTon 04-10-2023 Magnesium [Mass/Vol] 21.8 mg/dL Normal 16-38 [facility] Comment on above: Performed By: #### L [id number] #### [facility] ([facility]) [address] [place] [address] CBC WITH AUTO DIFFERENTIALon 04-10-2023 Basophils (Bld) [#/Vol] 0.06 10*3/uL Normal 0.00-0.20 [facility] Comment on above: Performed By: #### L [id number] #### [facility] (BE[facility]) [address] [place] [address] Basophils/100 WBC (Bld) 0.7 % Normal 0.0-1.0 [facility] Comment on above: Performed By: #### L [id number] #### [facility] ([facility]) [address] [place] [address] Eosinophils (Bld) [#/Vol] 0.13 10*3/uL Normal 0.00-0.50 [facility] Comment on above: Performed By: #### L [id number] #### [facility] ([facility]) [address] [place] [address] Eosinophils/100 WBC (Bld) 1.6 % Normal 0.0-6.0 [facility] Comment on above: Performed By: #### L [id number] #### [facility] ([facility]) [address] [place] [address] Erythrocyte distribution width (RBC) [Ratio] 13.0 % Normal 11.5-15.0 [facility] Comment on above: Performed By: #### L [id number] #### [facility] ([facility]) [address] [place] [address] ERYTHROCYTE MEAN CORPUSCULAR HEMOGLOBIN CONCENTRATION (G/DL) BY AUTOMATED 33.4 g/dL Normal 32.0-35.0 [facility] Comment on above: Performed By: #### L [id number] #### [facility] ([facility]) [address] [place] [address] Hematocrit (Bld) [Volume fraction] 43.1 % Normal 36.0-48.0 [facility] Comment on above: Performed By: #### L [id number] #### [facility] ([facility]) [address] [place] [address] Hemoglobin (Bld) [Mass/Vol] 14.4 g/dL Normal 12.0-15.0 [facility] Comment on above: Performed By: #### L [id number] #### [facility] ([facility]) [address] [place] [address] Immature granulocytes (Bld) [#/Vol] 0.03 10*3/uL Normal 0.00-0.20 [facility] Comment on above: Performed By: #### L [id number] #### [facility] (BE[facility]ER) [address] [place] [address] Immature granulocytes/100 WBC (Bld) 0.4 % Normal 0.0-1.0 [facility] Comment on above: Performed By: #### L [id number] #### [facility] ([facility]) [address] [address] Lymphocytes (Bld) [#/Vol] 1.79 10*3/uL Normal 1.20-4.00 [facility] Comment on above: Performed By: #### L [id number] #### [facility] [address] [place] [address] Lymphocytes/100 WBC (Bld) 21.8 % Normal 20.0-45.0 [facility] Comment on above: Performed By: #### L [id number] #### [facility] ([facility]) [address] [place] [address] MCH (RBC) [Entitic mass] 28.5 pg Normal 27.0-33.0 [facility] Comment on above: Performed By: #### L [id number] #### [facility] ([facility]) [address] [place] [address] MCV (RBC) [Entitic vol] 85.2 fL Normal 82.0-98.0 [facility] Comment on above: Performed By: #### L [id number] #### [facility] ([facility]) [address] [place] [address] Monocytes (Bld) [#/Vol] 0.55 10*3/uL Normal 0.10-1.00 [facility] Comment on above: Performed By: #### L [id number] #### [facility] ([facility]) [address] [place] [address] Monocytes/100 WBC (Bld) 6.7 % Normal 5.0-12.0 [facility] Comment on above: Performed By: #### L [id number] #### [facility] ([facility]) [address] [place] [address] Neutrophils (Bld) [#/Vol] 5.65 10*3/uL Normal 1.60-7.60 [facility] Comment on above: Performed By: #### L [id number] #### [facility] ([facility]) [address] [place] [address] Neutrophils/100 WBC (Bld) 68.8 % Normal 40.0-72.0 [facility] Comment on above: Performed By: #### L [id number] #### [facility] ([facility]) [address] [place] [address] NRBC (PER 100 WBCS) BY AUTOMATED COUNT 0.0 % Normal 0 [facility] Comment on above: Performed By: #### L [id number] #### [facility] ([facility]) [address] [place] [address] PLATELETS (10*3/UL) IN BLOOD AUTOMATED COUNT 320 10*3/uL Normal 150-400 [facility] Comment on above: Performed By: #### L [id number] #### [facility] ([facility]) [address] [place] [address] RBC (Bld) [#/Vol] 5.06 10*6/uL High 3.80-5.00 [facility] Comment on above: Performed By: #### L [id number] #### [facility] ([facility]) [address] [place] [address] WBC (Bld) [#/Vol] 8.21 10*3/uL Normal 4.00-10.60 [facility] Comment on above: Performed By: #### L [id number] #### [facility] [address] [place] [address] COMPREHENSIVE METABOLIC PANE Philip 04-10-2023 Albumin [Mass/Vol] 4.7 g/dL Normal 3.5-5.7 [facility] Comment on above: Performed By: #### L [id number] #### [facility] ([facility]) [address] [place] [address] ALP [Catalytic activity/Vol] 74 U/L Normal 34-104 [facility] Comment on above: Performed By: #### L [id number] #### [facility] ([facility]) [address] [place] [address] ALT [Catalytic activity/Vol] 21 U/L Normal 7-52 [facility] Comment on above: Performed By: #### L [id number] #### [facility] ([facility]) [address] [place] [address] Anion gap [Moles/Vol] 11 mmol/L Normal 7-20 [facility] Comment on above: Performed By: #### L [id number] #### [facility] ([facility]) [address] [place] [address] AST [Catalytic activity/Vol] 18 U/L Normal 13-39 [facility] Comment on above: Performed By: #### L [id number] #### [facility] ([facility]) [address] [place] [address] Bilirubin [Mass/Vol] 0.6 mg/dL Normal 0.3-1.0 [facility] Comment on above: Performed By: #### L [id number] #### [facility] ([facility]) [address] [address] Calcium [Mass/Vol] 9.2 mg/dL Normal 8.6-10.3 [facility] Comment on above: Performed By: #### L [id number] #### [facility] ([facility]) [address] [place] [address] Chloride [Moles/Vol] 106 mmol/L Normal 98-107 [facility] Comment on above: Performed By: #### L [id number] #### [facility] ([facility]) [address] [place] [address] CO2 [Moles/Vol] 25 mmol/L Normal 21-31 [facility] Comment on above: Performed By: #### L [id number] #### [facility] ([facility]) [address] [place] [address] Creatinine [Mass/Vol] 0.86 mg/dL Normal 0.60-1.20 [facility] Comment on above: Performed By: #### L [id number] #### [facility] ([facility]) [address] [place] [address] GLOMERULAR FILTRATION RATE ML/MIN/1.73 SQ M.PREDICTED 91.4 mL/min/1.73m*2 Normal >60.0 [facility] Comment on above: Result Comment: [facility]???s estimated glomerular filtration rate (eGFR) will [...] individuals. Performed By: #### L [id number] #### [facility] ([facility]) [address] [place] [address] Glucose [Mass/Vol] 80 mg/dL Normal 70-100 [facility] Comment on above: Performed By: #### L [id number] #### [facility] ([facility]) [address] [place] [address] Potassium [Moles/Vol] 3.8 mmol/L Normal 3.5-5.1 [facility] Comment on above: Performed By: #### L [id number] #### [facility] ([facility]) [address] [place] [address] Protein [Mass/Vol] 7.2 g/dL Normal 6.0-8.3 [facility] Comment on above: Performed By: #### L [id number] #### [facility] ([facility]) [address] [place] [address] Sodium [Moles/Vol] 138 mmol/L Normal 136-145 [facility] Comment on above: Performed By: #### L [id number] #### [facility] ([facility]) [address] [place] [address] Urea nitrogen [Mass/Vol] 12 mg/dL Normal 7-25 [facility] Comment on above: Performed By: #### L [id number] #### [facility] ([facility]) [address] [place] [address] UREA NITROGEN/CREATININE (MASS RATIO) IN SER/PLAS 14.0 Normal [facility] Comment on above: Performed By: #### L [id number] #### [facility] ([facility]) [address] [place] [address] EXTRACTABLE NUCLEAR ANTIGEN ANTIBODIESon 04-10-2023 ANTI SM AB Negative Normal [facility] Comment on above: Performed By: #### L [id number] #### [facility] ([facility]) [address] [place] [address] ANTI SM/ANTIRNP AB Negative Normal [facility] Comment on above: Performed By: #### L [id number] #### [facility] ([facility]) [address] [place] [address] Office Visiton 04-10-2023 Follow-up visit [id number] Jose Maria Avalos 1990 F Date Provider Department Center 04/10/2023 [facility] RHEUM Lian [facility] Family History Problem Relation Age of Onset Anxiety disorder Mother Arthritis Mother Depression Mother Alcohol abuse Father Cancer Father Alcohol abuse Sister Anxiety disorder Sister Arthritis Mother's Sister Arthritis Mother's Brother Arthritis Mother's Sister Family Status - Relation Status Age at Mother Father Sister Mother's Sister Mother's Brother Mother's Sister Level of Service:35792 [place] OFFICE/OUTPATIENT NEW MODERATE MDM 45-59 MINUTES (GC) Reason for Visit and Comments: New Patient [632] - Polyarthralgia Normal [facility] SJOGRENS SYNDROME ANTIBODIES A AND Bon 04-10-2023 VETO TO SSA (RO) ANTIBODY Negative Normal Negative [facility] Comment on above: Performed By: #### L [id number] #### [facility] ([facility]) [address] [place] [address] VETO TO SSB (LA) ANTIBODY Negative Normal Negative [facility] Comment on above: Performed By: #### L [id number] #### [facility] ([facility]) [address] [place] [address] URINALYSISon 04-10-2023 BILIRUBIN, TOTAL PRESENCE IN URINE Negative Normal Negative [facility] Comment on above: Performed By: #### L [id number] #### [facility] ([facility]) [address] [place] [address] Clarity (U) Slightly Cloudy Abnormal Clear [facility] Comment on above: Performed By: #### L [id number] #### [facility] ([facility]) [address] [place] [address] Color (U) Yellow Normal Yellow [facility] Comment on above: Performed By: #### L [id number] #### [facility] ([facility]) [address] [place] [address] Glucose (U) [Mass/Vol] Negative Normal Negative [facility] Comment on above: Performed By: #### L [id number] #### [facility] ([facility]) [address] [place] [address] HEMOGLOBIN PRESENCE IN URINE Negative Normal Negative [facility] Comment on above: Performed By: #### L [id number] #### [facility] ([facility]) [address] [place] [address] Ketones Ql (U) Negative Normal Negative [facility] Comment on above: Performed By: #### L [id number] #### [facility] ([facility]) [address] [place] [address] LEUKOCYTE ESTERASE PRESENCE IN URINE BY TEST STRIP Negative Normal Negative [facility] Comment on above: Performed By: #### L [id number] #### [facility] ([facility]) [address] [place] [address] NITRITE PRESENCE IN URINE Negative Normal Negative [facility] Comment on above: Performed By: #### L [id number] #### [facility] ([facility]) [address] [place] [address] pH (U) 6.0 [pH] Normal 5.0-8.0 [facility] Comment on above: Performed By: #### L [id number] #### [facility] ([facility]) [address] [place] [address] Protein (U) [Mass/Vol] 30 mg/dL Abnormal Negative [facility] Comment on above: Performed By: #### L [id number] #### [facility] ([facility]) [address] [place] [address] Specific gravity (U) [Rel density] 1.026 High 1.015-1.020 [facility] Comment on above: Performed By: #### L [id number] #### [facility] ([facility]) [address] [place] [address] UROBILINOGEN (EU/DL) IN URINE 2.0 EU/dL Abnormal Negative [facility] Comment on above: Performed By: #### L [id number] #### [facility] ([facility]) [address] [place] [address] URINALYSIS MICROSCOPICon CASTS IN URINE Normal [facility] Comment on above: Performed By: #### L [id number] #### [facility] ([facility]) [address] [place] [address] CRYSTALS IN URINE Normal [facility] Comment on above: Performed By: #### L [id number] #### [facility] ([facility]) [address] [place] [address] MUCUS (#/HPF) IN URINE SEDIMENT Moderate Abnormal None Seen, Occasional, Few [facility] Comment on above: Performed By: #### L [id number] #### [facility] ([facility]) [address] [place] [address] RBC (#/HPF) IN URINE SEDIMENT 0-2 Abnormal None Seen [facility] Comment on above: Performed By: #### L [id number] #### [facility] [address] [place] [address] SQUAMOUS EPITHELIAL CELLS (#/HPF) IN URINE SEDIMENT Many Abnormal None Seen, Occasional [facility] Comment on above: Performed By: #### L [id number] #### [facility] [address] [place] [address] WBC (LEUKOCYTE) (#/HPF) IN URINE SEDIMENT 0-2 Abnormal None Seen [facility] Comment on above: Performed By: #### L [id number] #### [facility] ([facility]) [address] [place] [address] Physician Orderon 04-08-2023 Physician Order [id number] D:127 Normal [facility] WILMA EIA W/REFLEX 9 BIOMARKER Son 03-05-2023 WILMA Direct Negative Normal Negative [facility] Comment on above: Performed By: #### A [id number] #### [facility] [address] [place] [address] Dr. Altagracia Allen C-REACTIVE PROTEINS (HS)on 0 03-05-2023 C-Reactive Protein, Cardiac 2.96 mg/L Normal 0.00-3.00 [facility] Comment on above: Result Comment: Rela tive Risk for Future Cardiovascular Event Low <1.00 Average 1.00 - 3.00 High >3.00 Performed By: #### C RPHS #### [facility] [address] [place] [address] [address] Altagracia Allen CYCLIC CITRULLINATED PEPTIDE AB (CCP)on 03-05-2023 CCP Antibodies IgG/IgA 4 units Normal 0-19 [facility] Comment on above: Result Comment: Nega tive <20 Weak positive 20 - 39 Moderate positive 40 - 59 Strong positive >59 Performed By: #### C CPAB #### [facility] [address] [address] [address] Altagracia Allen HIV 1 AND 2 WITH REFLEXon HIV Screen 4th Generation wRfx Non-Reactive Normal Non Reactive [facility] Comment on above: Result Comment: HIV Negative HIV-1/HIV-2 antibodies and HIV-1 p24 antigen were NOT detected. There is no laboratory evidence of HIV infection. Performed By: #### H IV12 #### [facility] [address] [address] [address] Altagracia Allen MRI TSPINE WO CONon [...] abnormal marrow signal. Electronically authenticated by: MP ACEVES Date: 2023-03-05 14:38 Normal [facility] RHEUMATOID FACTORon 03-05-20 RA Latex Turbid. <10.0 Normal <14.0 [facility] Comment on above: Performed By: #### R F ####[facility] [address] [place], [place] [address]JnDr. Altagracia Allen SED RATE WESTERGRENon 2022 SED RATE 14 mm/hr Normal <=[address] [facility] Comment on above: Performed By: #### S EDR #### [facility] [address] [address] [address] Altagracia Allen HEMOGRAM AND PLATELon 2022 Hematocrit (Bld) [Volume fraction] 40.0 % Normal 36.0-48.[address] [facility] Comment on above: Performed By: #### H H ####[facility] [address] [place] [address]Dr. Altagracia Allen Hemoglobin (Bld) [Mass/Vol] 13.5 g/dL Normal 12.0-16.[address] [facility] Comment on above: Performed By: #### H H ####[facility] [address] [address]Dr. Altagracia Allen MCH (RBC) [Entitic mass] 28.5 pg Normal 26.7-34.[address] [facility] Comment on above: Performed By: #### H H ####[facility] [address] [place], [place] [address]Dr. Altagracia Allen MCHC (RBC) [Mass/Vol] 33.8 g/dL Normal 29.9-35.[address] [facility] Comment on above: Performed By: #### H H ####[facility] [address] [place], [place] [address]DrAlexx Altagracia Allen MCV (RBC) [Entitic vol] 84.6 fL Normal 81.0-99.[address] [facility] Comment on above: Performed By: #### H H ####[facility] [address] [place], [place] [address]Dr. Altagracia Allen PLT 271 103/ul Normal 150-[address] [facility] Comment on above: Performed By: #### H H ####[facility] [address] [place], [place] [address]Dr. Altagracia Allen RBC 4.73 106/ul Normal 4.20-5.[address] [facility] Comment on above: Performed By: #### H H ####[facility] [address] [place], [place] [address]Dr. Altagracia Allen WBC 8.0 103/ul Normal 4.0-11.[address] [facility] Comment on above: Performed By: #### H H ####[facility] [address] [place], [place] [address]DrAlexx Altagracia Allen LIPID PROFILEon 02-25-2023 CHOL-HDL RATIO NORM SEE BELOW Normal [facility] Comment on above: Result Comment: 3.3 - 4.4 LOW RISK 4.4 - 7.1 AVERAGE RISK 7.1 - 11.0 MODERATE RISK >11.0 HIGH RISK Performed By: #### L IPID, [id number], CMP #### [facility] [address] [address] [address] Altagracia Allen Cholesterol [Mass/Vol] 175 mg/dL Normal <=200 [facility] Comment on above: Performed By: #### L IPID, [id number], CMP #### [facility] [address] [address] [address] Altagracia Allen Cholesterol in HDL [Mass/Vol] 29 mg/dL Critically low 40-60 [facility] Comment on above: Performed By: #### L IPID, [id number], CMP #### [facility] [address] [place] [address] Dr. Altagracia Allen Cholesterol in LDL [Mass/Vol] 127.2 mg/dL Normal [facility] Comment on above: Performed By: #### L IPID, [id number], CMP #### [facility] [address] [address] [address] Altagracia Allen Cholesterol.total/C holesterol in HDL [Mass ratio] 6.0 {ratio} Normal [facility] Comment on above: Performed By: #### L IPID, TSHRFT4, CMP #### [facility] [address] [place] [address] Dr. Altagracia Allen HDL NORMAL > or = 60 mg/dl - LO W CARDIOVASCULAR RISK <40 mg/dl - HIGH CARDIOVASCULAR RISK Normal [facility] Comment on above: Performed By: #### L IPID, [id number], CMP #### [facility] [address] [place] [address] Dr. Altagracia Allen LDL CALC NORMAL SEE BELOW Normal [facility] Comment on above: Result Comment: <100 mg/dl OPTIMAL 100 - 129 mg/dl NEAR OR ABOVE OPTIMAL 130 - 159 mg/dl BORDERLINE HIGH 160 - 189 mg/dl HIGH >190 mg/dl VERY HIGH Performed By: #### L IPID, [id number], CMP #### [facility] [address] [address] [address] Altagracia Allen Triglyceride [Mass/Vol] 94 mg/dL Normal <=150 [facility] Comment on above: Performed By: #### L IPID, [id number], CMP #### [facility] [address] [address] [address] Altagracia Allen VLDL CALC 18.8 mg/dL Normal [facility] Comment on above: Performed By: #### L IPID, TSHRFT4, CMP #### [facility] [address] [address] [address] Altagracia Allen PROF 14(COMP METB)on 023 Albumin [Mass/Vol] 3.6 g/dL Normal 3.4-5.0 [facility] Comment on above: Performed By: #### L IPID, TSHRFT4, CMP #### [facility] [address] [address] [address] Altagracia Allen Albumin/Globulin [Mass ratio] 1.1 {ratio} Normal [facility] Comment on above: Performed By: #### L IPID, TSHRFT4, CMP #### [facility] [address] [place] [address] Dr. Altagracia Allen ALP [Catalytic activity/Vol] 72 U/L Normal 46-[address] [facility] Comment on above: Performed By: #### L IPID, TSHRFT4, CMP #### [facility] [address] [address] [address] Altagracia Allen ALT [Catalytic activity/Vol] 27 U/L Normal 14-[address] [facility] Comment on above: Performed By: #### L IPID, TSHRFT4, CMP #### [facility] [address] [address] [address] Altagracia Allen Anion gap [Moles/Vol] 13.8 mmol/L Normal [facility] Comment on above: Performed By: #### L IPID, TSHRFT4, CMP #### [facility] [address] [place] [address] Dr. Altagracia Allen AST [Catalytic activity/Vol] 17 U/L Normal 15-37 [facility] Comment on above: Performed By: #### L IPID, TSHRFT4, CMP #### [facility] [address] [place] [address] Dr. Altagracia Allen Bilirubin [Mass/Vol] 0.2 mg/dL Normal 0.2-1.0 [facility] Comment on above: Performed By: #### L IPID, TSHRFT4, CMP #### [facility] [address] [place] [address] Dr. Altagracia Allen Calcium [Mass/Vol] 8.6 mg/dL Normal 8.5-10.1 [facility] Comment on above: Performed By: #### L IPID, TSHRFT4, CMP #### [facility] [address] [place] [address] Dr. Altagracia Allen Chloride [Moles/Vol] 106 mmol/L Normal 98-[address] [facility] Comment on above: Performed By: #### L IPID, TSHRFT4, CMP #### [facility] [address] [place] [address] Dr. Altagracia Allen CO2 [Moles/Vol] 23.7 mmol/L Normal 21.0-32.0 [facility] Comment on above: Performed By: #### L IPID, TSHRFT4, CMP #### [facility] [address] [place] [address] Dr. Altagracia Allen Creatinine [Mass/Vol] 0.76 mg/dL Normal 0.55-1.02 [facility] Comment on above: Performed By: #### L IPID, TSHRFT4, CMP #### [facility] [address] [place] [address] Dr. Altagracia Allen EGFR-AF QATARI >60 Normal >=60 [facility] Comment on above: Performed By: #### L IPID, TSHRFT4, CMP #### [facility] [address] [place] [address] Dr. Altagracia Allen EGFR-NON AF QATARI >60 Normal >=[address] [facility] Comment on above: Performed By: #### L IPID, TSHRFT4, CMP #### [facility] [address] [place] [address] Dr. Altagracia Allen Globulin (S) [Mass/Vol] 3.4 g/dL Normal [facility] Comment on above: Performed By: #### L IPID, TSHRFT4, CMP #### [facility] [address] [place] [address] Dr. Altagracia Allen Glucose [Mass/Vol] 92 mg/dL Normal 74-106 The [facility] Comment on above: Performed By: #### L IPID, TSHRFT4, CMP #### [facility] [address] [place] [address] Dr. Altagracia Allen Potassium [Moles/Vol] 3.5 mmol/L Normal 3.5-5.[address] [facility] Comment on above: Performed By: #### L IPID, TSHRFT4, CMP #### [facility] [address] [place] [address] Dr. Altagracia Allen Protein [Mass/Vol] 7.0 g/dL Normal 6.4-8.2 [facility] Comment on above: Performed By: #### L IPID, TSHRFT4, CMP #### [facility] [address] [place] [address] Dr. Altagracia Allen Sodium [Moles/Vol] 140 mmol/L Normal 136-145 [facility] Comment on above: Performed By: #### L IPID, TSHRFT4, CMP #### [facility] [address] [place] [address] Dr. Altagracia Allen Urea nitrogen [Mass/Vol] 13.0 mg/dL Normal 7.0-18.[address] [facility] Comment on above: Performed By: #### L IPID, TSHRFT4, CMP #### [facility] [address] [place] [address] Dr. Altagracia Allen Urea nitrogen/Creatinine [Mass ratio] 17.1 mg/mg Normal [facility] Comment on above: Performed By: #### L IPID, TSHRFT4, CMP #### [facility] [address] [place], [place] [address] Dr. Altagracia Allen TSH W/ REFLEX TO FT4on 02-25 TSH 2.830 uIU/mL Normal 0.358-3.740 [facility] Comment on above: Performed By: #### L IPID, TSHRFT4, CMP #### [facility] [address] [address] [address] Altagracia Allen XR TSPINE 3 VIEWSon [...] significant degenerative changes. Electronically authenticated by: MP ACEVES Date: 2023-02-14 07:59 Normal [address] [facility] CBC W/DIFFon 01-23-2021 ABS BASOPHILS 0.1 10*3/uL Normal 0.0-0.2 [facility] Comment on above: Performed By: #### 5 0103 #### [facility] [address] ABS IMM GRANS 0.0 10*3/uL Normal 0.0-0.2 [facility] Comment on above: Performed By: #### 5 0103 #### [facility] [address] ABS NEUTROPHILS 4.9 10*3/uL Normal 1.6-7.6 [facility] Comment on above: Performed By: #### 5 0103 #### [facility] [address] Basophils/100 WBC (Bld) 0.7 % Normal 0.0-1.0 [facility] Comment on above: Performed By: #### 5 0103 #### [facility] [address] [place] [address], [facility] Eosinophils (Bld) [#/Vol] 0.3 10*3/uL Normal 0.0-0.5 [facility] Comment on above: Performed By: #### 5 0103 #### [facility] [address] [place] [address], [facility] Eosinophils/100 WBC (Bld) 3.6 % Normal 0.0-6.0 [facility] Comment on above: Performed By: #### 5 0103 #### [facility] [address] [facility] [address] Erythrocyte distribution width (RBC) [Ratio] 13.2 % Normal 11.5-15.0 [facility] Comment on above: Performed By: #### 5 0103 #### [facility] [address] [place] [address], [facility] Hematocrit (Bld) [Volume fraction] 44.2 % Normal 36.0-45.0 [facility] Comment on above: Performed By: #### 5 0103 #### [facility] [address] [place] [address], [facility] Hemoglobin (Bld) [Mass/Vol] 14.4 g/dL Normal 12.0-15.0 [facility] Comment on above: Performed By: #### 5 0103 #### [facility] [address] [facility] [address], [facility] IMMATURE GRANS 0.4 % Normal 0.0-1.0 [facility] Comment on above: Performed By: #### 5 3 #### [facility] [address] [place] [address], [facility] Lymphocytes (Bld) [#/Vol] 1.8 10*3/uL Normal 1.2-4.0 [facility] Comment on above: Performed By: #### 5 0103 #### [facility] [address] [place] [address], [facility] Lymphocytes/100 WBC (Bld) 23.3 % Normal 20.0-45.0 [facility] Comment on above: Performed By: #### 5 0103 #### [facility] [address] [place] [address], [facility] MCH (RBC) [Entitic mass] 29.1 pg Normal 27.0-33.0 [facility] Comment on above: Performed By: #### 5 0103 #### [facility] [address] [place] [address], [facility] MCHC (RBC) [Mass/Vol] 32.6 g/dL Normal 32.0-35.0 [facility] Comment on above: Performed By: #### 5 0103 #### [facility] [address] [place] [address], [facility] MCV (RBC) [Entitic vol] 89.3 fL Normal 82.0-98.0 [facility] Comment on above: Performed By: #### 5 0103 #### [facility] [address] [place] [address], [facility] Monocytes (Bld) [#/Vol] 0.6 10*3/uL Normal 0.1-1.0 [facility] Comment on above: Performed By: #### 5 0103 #### [facility] [address] [place] [address], [facility] MONOS 7.6 % Normal 5.0-12.0 [facility] Comment on above: Performed By: #### 5 3 #### [facility] [address] [place] [address], [facility] Neutrophils/100 WBC (Bld) 64.4 % Normal 40.0-72.0 [facility] Comment on above: Performed By: #### 5 0103 #### [facility] [address] [place] [address], [facility] Nucleated RBC/100 WBC (Bld) [Ratio] 0 % Normal 0-0 [facility] Comment on above: Performed By: #### 5 0103 #### [facility] [address] [place] [address], [facility] PLAT CNT 264 10*3/uL Normal 150-400 The [facility] Comment on above: Performed By: #### 5 0103 #### [facility] [address] [place] [address], [facility] RBC (Bld) [#/Vol] 4.95 10*6/uL Normal 3.80-5.00 The [facility] Comment on above: Performed By: #### 5 0103 #### [facility] [address] [facility] WBC (Bld) [#/Vol] 7.59 10*3/uL Normal 4.00-10.60 The [facility] Comment on above: Performed By: #### 5 0103 #### [facility] [address] [facility] [address] COMP METABOLIC PANELon 01-23 Albumin [Mass/Vol] 4.4 g/dL Normal 3.5-5.7 [facility] Comment on above: Performed By: #### 4 [id number], [address], [address] #### [facility] [address] [place] [address], [facility] ALKALINE PHOSPH 64 IU/L Normal 34-104 [facility] Comment on above: Performed By: #### 4 6560, 54202, 42369 #### [facility] [address] ALT [Catalytic activity/Vol] 13 U/L Normal 7-52 [facility] Comment on above: Performed By: #### 4 6413, 16862, 33671 #### [facility] [address] [place] [address], [place] AST [Catalytic activity/Vol] 14 U/L Normal 13-39 [facility] Comment on above: Performed By: #### 4 6413, 11814, 02131 #### [facility] [address] [place] [address], [place] Bilirubin [Mass/Vol] 0.4 mg/dL Normal 0.3-1.0 [facility] Comment on above: Performed By: #### 4 6413, 97187, 53557 #### [facility] [address] [place] [address], [place] Calcium [Mass/Vol] 9.2 mg/dL Normal 8.6-10.3 [facility] Comment on above: Performed By: #### 4 6413, 09237, 25956 #### [facility] [address] [place] [address], [place] Chloride [Moles/Vol] 105 mmol/L Normal 98-107 [facility] Comment on above: Performed By: #### 4 6413, 70518, 33678 #### [facility] [address] [place] [address], [place] CO2 [Moles/Vol] 28 mmol/L Normal 21-31 [facility] Comment on above: Performed By: #### 4 6413, 65858, 83526 #### [facility] [address] [place] [address], [place] Creatinine [Mass/Vol] 0.90 mg/dL Normal 0.60-1.20 [facility] Comment on above: Performed By: #### 4 6413, 58496, 63129 #### [facility] [address] [place] [address], [place] GFR/1.73 sq M predicted among blacks MDRD (S/P/Bld) [Vol rate/Area] mL/min/{1.73_m2} Normal >60 [facility] Comment on above: Performed By: #### 4 6413, 62869, 24807 #### [facility] [address] [place] [address], [place] GFR/1.73 sq M predicted among non-blacks MDRD (S/P/Bld) [Vol rate/Area] mL/min/{1.73_m2} Normal >60 [facility] Comment on above: Performed By: #### 4 6413, 16415, 35999 #### [facility] [address] [place] [address], [place] Glucose [Mass/Vol] 86 mg/dL Normal 70-100 [facility] Comment on above: Performed By: #### 4 6413, 85158, 34572 #### [facility] [address] [place] [address], [place] Potassium [Moles/Vol] 3.9 mmol/L Normal 3.5-5.1 [facility] Comment on above: Performed By: #### 4 6413, 83775, 14733 #### [facility] [address] [place] [address], [place] Protein [Mass/Vol] 7.1 g/dL Normal 6.0-8.3 [facility] Comment on above: Performed By: #### 4 6413, 18075, 67726 #### [facility] [address] [place] [address], [place] Sodium [Moles/Vol] 138 mmol/L Normal 136-145 [facility] Comment on above: Performed By: #### 4 6413, 22355, 35516 #### [facility] [address] [place] [address], [place] Urea nitrogen [Mass/Vol] 11 mg/dL Normal 7-25 [facility] Comment on above: Performed By: #### 4 6413, 44119, 86741 #### [facility] [address] [place] [address], [facility] LIPID PROFILEon 01-23-2021 Cholesterol [Mass/Vol] 162 mg/dL Normal 120-200 [facility] Comment on above: Result Comment: CHOL ESTEROL REFERENCE RANGE: 20 YEARS AND OLDER CARDIOVASCULAR RISK Less than 200 mg/dl Low Risk 200 to 239 mg/dl Borderline Risk 240 mg/dl and greater High Risk Performed By: #### 4 6413, 40175, 94588 #### [facility] [address] [place] [address], [facility] Cholesterol in HDL [Mass/Vol] 38 mg/dL Normal 23-92 [facility] Comment on above: Result Comment: Slig ht variation in normal range could be due to gender and/or age. HDL CHOLESTEROL REFERENCE RANGE: 20 years and older Cardiovascular Risk > or =60 mg/dL Desirable 40 TO 59 mg/dL Low Risk <40 mg/dL High Risk Performed By: #### 4 6413, 03733, 72815 #### [facility] [address] [place] [address], [facility] Cholesterol in LDL [Mass/Vol] 111 mg/dL Normal 0-130 [facility] Comment on above: Result Comment: LDL IS A CALCULATION LDL IS ONLY VALID IF THE TRIG IS LESS THAN 400. Performed By: #### 4 6413, 04521, 88975 #### [facility] [address] [place] [address], [place] Cholesterol.total/C holesterol in HDL [Mass ratio] 4.3 {ratio} Normal 0.0-4.5 [facility] Comment on above: Performed By: #### 4 6413, 21562, 01481 #### [facility] [address] [place] [address], [place] NON-HDL CHOLESTEROL 124 mg/dL Normal [facility] Comment on above: Performed By: #### 4 6413, 33675, 62850 #### [facility] [address] Triglyceride [Mass/Vol] 66 mg/dL Normal 40-149 [facility] Comment on above: Result Comment: TRIG LYCERIDE REFERENCE RANGE: 20 YEARS AND OLDER CARDIOVASCULAR RISK LESS THAN 150 mg/dl LOW RISK 150 TO 199 mg/dl BORDERLINE RISK 200 mg/dl AND GREATER HIGH RISK Performed By: #### 4 6413, 45217, 21235 #### [facility] [address] VLDL CHOL 13 mg/dL Normal 0-40 [facility] Comment on above: Performed By: #### 4 6413, 37943, 29080 #### [facility] [address] [facility] [address] TSH3 WITH REFLEX FT4on 01-23 TSH 3RD GENERATION 1.73 uIU/mL Normal 0.34-5.60 [facility] Comment on above: Performed By: #### 4 6413, 16569, 73012 #### [facility] [address] [facility] Vital Signs Date Time Vital Sign Value Performing Clinician Gabi zuñiga 09-08-2024 10:53-0400 Body mass index (BMI) [Ratio] 36.31 kg/m2 [employer] Work Phone: [facility] 09-08-2024 10:53-0400 Body weight 108.32 kg [employer] DO Work Phone: [facility] 09-08-2024 10:53-0400 Diastolic blood pressure 70 mm[Hg] [employer] Work Phone: [facility] 09-08-2024 10:53-0400 Systolic blood pressure 120 mm[Hg] [employer] Work Phone: [facility] Healthcare Encounters Encounter Date Encounter Type Care Provider Facility Start: 09-08-2024 End: 09-08-2024 Office outpatient visit 15 minutes Remigio Real DO Work Phone: [facility] Comment on above: Irregular periods; PCOS (polycystic ovarian syndrome); Female infertility; Mood disorder ([facility]) Start: 08-26-2024 End: 08-30-2024 Telephone encounter Charlotte Roe Nikolay 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 Work Phone: [facility] [...] External Department Unsolicited Start: 08-19-2024 ambulatory BARB Dawn Availa ble Start: 08-17-2024 End: 08-17-2024 ambulatory RO C WINDNAGEL Not Available Start: 08-10-2024 End: 08-10-2024 Patient encounter procedure ANP-BC Ro Windnagel Work Phone: [facility] Work Phone: Start: 08-10-2024 End: 08-10-2024 ambulatory NON STAFF [facility] Work Phone: Start: 07-01-2024 End: 07-01-2024 ambulatory RO C WINDNAGEL Not Available Start: 06-25-2024 End: 06-25-2024 Patient encounter procedure ANP-BC Ro Windnagel Work Phone: [facility] Work Phone: Start: 06-25-2024 End: 06-25-2024 ambulatory NON STAFF [facility] Work Phone: Start: 06-08-2024 End: 06-08-2024 ambulatory RO C WINDNAGEL Not Available Start: 06-01-2024 End: 06-01-2024 ambulatory RO C WINDNAGEL Not Available Start: 05-31-2024 End: 05-31-2024 ambulatory RO C WINDNAGEL [facility] Start: 05-13-2024 End: 05-13-2024 ambulatory RO C WINDNAGEL Not Available Start: 04-29-2024 End: 04-29-2024 ambulatory RO C WINDNAGEL Not Available Start: 02-17-2024 End: 02-17-2024 ambulatory REGINA RAMIREZI Not Available Start: 02-03-2024 End: 02-03-2024 ambulatory REMIGIO JAEGERZIO Not Available Start: 07-08-2023 End: 07-09-2023 ambulatory Ro Windnagel Facility:[facility] Start: 07-08-2023 End: 07-08-2023 Patient encounter procedure CAREN FULTON [facility] Start: 04-28-2023 ambulatory SAJAN SHAMMO Facility:[facility] [place] Start: 04-17-2023 End: 04-17-2023 ambulatory [facility] Start: 04-15-2023 End: 04-16-2023 ambulatory Ro Windnagel Facility:[facility] Start: 04-10-2023 End: 04-10-2023 ambulatory [facility] Start: 03-04-2023 End: 03-05-2023 ambulatory SAJAN SHAMMO Facility:[facility] Start: 03-01-2023 Encounter for genera l adult medical examination without abnormal findings SAJAN SHAMMO [facility] Start: 02-25-2023 End: 02-26-2023 ambulatory SAJAN SHAMMO Facility:[facility] Start: 02-25-2023 End: 02-26-2023 Encounter for general adult medical examination without abnormal findings SAJAN MACKID Facility: Start: 02-13-2023 End: 02-14-2023 ambulatory [facility] Facility: Procedures Date Procedure Procedure Detail Performing Clinician Start: 08-24-2024 ALL CBC WITH AUTO DIFF Barb CLOUD Work Phone: Start: 08-19-2024 IGP,APTIMA HPV,AGE GDLN Barb CLOUD Work Phone: Start: 08-19-2024 Microscopic observat ion [Identifier] in Cervix by Cyto stain Remigio Real DO Work Phone: Start: 08-10-2024 MR lumbar spine [...] in Cervix by Cyto stain Charlotte Link APRN-MEAT SLICER Work Phone: Dilation and curettage RUBI FULTON Hysterectomy CAREN FULTON Tonsillectomy CAREN FULTON Plan of Treatment Date Care Activity Detail Author Start: 08-21-2028 Screening for malignant neoplasm of cervix [facility] Start: 08-19-2027 Screening for malignant neoplasm of cervix Pap Smear [facility] Start: 07-22-2025 Screening for malignant neoplasm of cervix Pap Smear [facility] Start: 07-01-2025 Screening for malignant neoplasm of cervix Pap Smear [facility] Start: 02-15-2025 End: 02-15-2025 Patient encounter procedure 02/15/2025 9:20 AM EDT Office Visit [facility] [address] [place] [address] Regina Ryan MD [address] [place] [address] [facility] Start: 11-09-2024 End: 11-09-2024 Patient encounter procedure 11/09/2024 3:00 PM EST Office Visit [facility] [address] [place] [id number] Zac Tay DO [address] [place] [address] [facility] Start: 10-05-2024 End: 10-05-2024 Patient encounter procedure 10/05/2024 8:10 AM EST Office Visit [facility] [address] [place] [address] Remigio Real, DO [address] [place], [place] [id number] [facility] Start: 09-17-2024 End: 09-17-2024 Patient encounter procedure 09/17/2024 10:30 AM EDT Office Visit [facility] [address] [place] [id number] Kathy Briggs MD [address] [place] [address] [facility] Start: 09-08-2024 End: 09-08-2024 Patient encounter procedure 09/08/2024 11:10 AM EDT Office Visit [facility] [address] [place] [address] Remigio Real, [address] [place] [address] [facility] Start: 07-25-2024 COVID-19 Vaccine ( season) COVID-19 Vaccine ( season) [facility] Start: 07-25-2024 Influenza vaccination [facility] Start: 07-23-2023 Adult BMI Screening Adult BMI Screening [facility] Start: 2001 Depression Screening Depression Screening [facility] Start: 2001 Tobacco Screening Tobacco Screening [facility] Start: 2000 DTaP,Tdap and Td Vaccines (6 - Tdap) DTaP,Tdap and Td Vaccines (6 - Tdap) [facility] Immunizations Immunization Date Immunization Notes Care Provider Fa cility 08-25-2013 influenza virus vaccine, unspecified formulation Charlotte Link 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 2022 Unknown 1989 Unknown [id number] 2.16.840.1.329221.3.579. 2.593 1989 Unknown [id number] 2.16.840.1.509660.3.579. 2.593 1989 Unknown [id number] 2.16.840.1.339376.3.579. 2.593 1989 Unknown [id number] 2.16.840.1.630002.3.579. 2.727 1989 Unknown [id number] 2.16.840.1.034565.3.579. 2.727 1989 Unknown [id number] 2.16.840.1.793847.3.579. 2.727 1989 Unknown [id number] 2.16.840.1.251479.3.579. 2.1286 1989 Unknown [id number] 2.16.840.1.500029.3.579. 2.1259 1989 Unknown [id number] 2.16.840.1.115431.3.579. 2.9 1989 Unknown [id number] 2.16.840.1.405809.3.579. 2.1259 1989 Unknown [id number] 2.16.840.1.597135.3.579. 2.1259 1989 Unknown [id number] 2.16.840.1.706250.3.579. 2.1259 1989 Unknown [id number] 2.16.840.1.346947.3.579. 2.125 1989 Unknown [id number] 2.16.840.1.137312.3.579. 2.1259 1989 Unknown [id number] 2.16.840.1.583897.3.579. 2.1259 1989 Unknown [id number] 2.16.840.1.763885.3.579. 2.1259 1959 Unknown [id number] 1959 Unknown [id number] Unknown [id number] 2.16.840.1.333855.3.579. 2.531 Unknown [id number] 2.16840.1.123161.3.579. 2.531 Social History Date Type Detail Facility Tobacco smoking status [facility] Start: 04-28-2024 End: 07-01-2024 Sex Assigned At Female [facility] Start: 1990 Sex Assigned At Female [facility] Start: 07-01-2024 Tobacco smoking status NHIS Ex-smoker [facility] Start: 07-25-2007 End: 06-24-2023 History of tobacco use Current smoker [facility] Start: 07-25-2007 End: 06-24-2023 History of tobacco use Cigarette Smoker [facility] Start: 04-28-2024 End: 07-01-2024 Cigarettes smoked current (pack per day) - Reported 1.5 [facility] Start: 07-12-2019 End: 07-01-2024 Tobacco use and exposure Smokeless tobacco non-user [facility] Start: 08-19-2024 End: 09-08-2024 Alcoholic beverage intake Current drinker of alcohol [...] [facility] Start: 12-25-2016 Tobacco smoking status KYIS Smokes tobacco daily [facility] Start: 07-01-2022 Alcohol Comment rare [facility] Clinical Notes 04-10-2023 to 09-08-2024 Myra Mckenna LPN - 09/08/2024 11:10 AM EDTTelephone Encounter - Shana Cain - 08/26/2024 2:47 PM EDTTelephone Encounter - NORMAN Temple - 08/26/2024 2:47 PM EDT Note Date & Type Note Facility 09-08-2024 History of Presen t illness Narrative Reason for Appointment: Patient ID: Eloisa Natarajan is a 33 y.o. female who presents for Follow up testing Patient presents today for Follow up appointment to discuss results. MEDICATIONS Current Outpatient Medications Medication Instructions hydrOXYzine HCl (ATARAX) 10 mg, 3 times daily PRN ibuprofen 800 mg, Every 6 hours PRN levoFLOXacin (Levaquin) 250 MG tablet 2 tablets, Daily metFORMIN XR (GLUCOPHAGE-XR) 500 mg, Oral, 2 times daily, Do not crush, chew, or split. 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 Anxiety 04/28/2024 Occipital neuralgia of right side 07/01/2024 Diplopia 08/17/2024 Dizziness 08/17/2024 Saddle anesthesia 08/17/2024 Chronic bilateral low back pain without sciatica 08/17/2024 Resolved Ambulatory Problems Diagnosis Date Noted No Resolved Ambulatory Problems Past Medical History: Diagnosis Date ADHD (attention deficit hyperactivity disorder) ([facility]) Depression ([facility]) Head injury October 16 Infertility, female PTSD (post-traumatic stress disorder) ([facility]) HISTORY PAST MEDICAL HISTORY SOCIAL HISTORY Past Medical History: Diagnosis Date ADHD (attention deficit hyperactivity disorder) ([facility]) Anxiety Depression ([facility]) Head injury October 16 Infertility, female PTSD (post-traumatic stress disorder) ([facility]) Social History Tobacco Use Smoking status: Former Current packs/day: 0.00 Average packs/day: 1.5 packs/day for 15.9 years (23.9 ttl pk-yrs) Types: Cigarettes Start date: 07/25/2007 Quit date: 06/24/2023 Years since quittin.2 Smokeless tobacco: Never Substance Use Topics Alcohol use: Yes Drug use: Yes Types: Marijuana Comment: For fun. FAMILY HISTORY Family History Problem Relation Name Age of Onset Irritable bowel syndrome Mother Tania Depression Mother Tania Alcohol abuse Father Cancer Father Hypertension Father Alcohol abuse Sibling SURGICAL HISTORY Past Surgical History: Procedure Laterality Date DILATION AND CURETTAGE OF UTERUS HYSTEROSCOPY PELVIC LAPAROSCOPY TONSILLECTOMY REVIEW OF SYSTEMS Review of Systems: Review of Systems Constitutional: Negative. HENT: Negative. Eyes: Negative. Respiratory: Negative. Cardiovascular: Negative. Gastrointestinal: Negative. Genitourinary: Negative. Musculoskeletal: Negative. Skin: Negative. Neurological: Negative. All other systems reviewed and are negative. Hematological: Negative. Endocrine: Negative. Allergic/Immunologic: Negative. OBJECTIVE Objective: Physical Exam Constitutional: Appearance: Normal appearance. She is well-developed. Cardiovascular: Rate and Rhythm: Normal rate and regular rhythm. Pulmonary: Effort: Pulmonary effort is normal. Breath sounds: Normal breath sounds. Abdominal: General: Bowel sounds are normal. There is no distension. Palpations: Abdomen is soft. Tenderness: There is no abdominal tenderness. There is no guarding or rebound. Musculoskeletal: General: No swelling. Normal range of motion. Right lower leg: No edema. Left lower leg: No edema. Neurological: Mental Status: She is alert and oriented to person, place, and time. Skin: General: Skin is warm and dry. Psychiatric: Mood and Affect: Mood normal. Behavior: Behavior normal. Vitals and nursing note reviewed. Exam conducted with a atm technician present. Vitals: Estimated body mass index is 36.31 kg/m as calculated from the following: Height as of 07/01/24: 5' 8 . Weight as of this encounter: 238 lb 12.8 oz. BP: 120/70 Patient's last menstrual period was 08/26/2024. ASSESSMENT & PLAN ICD-10-CM 1. Irregular periods N92.6 2. PCOS (polycystic ovarian syndrome) E28.2 3. Female infertility N97.9 Pt presents to discuss ultrasound, pt has 7mm fibroid in the body of the myometrium. Pt declines specialist at this time. Pt to start femara again. Pt to call and will be scheduled for [facility]. Pt voiced understanding. Pt to be on femara for 6 months. Pt agreed to plan of care. Pt has stress related to trying to conceive. Pt feels more anxious. Pt to start effexor, rx for effexor faxed to pharmacy. Documented by Myra Mckenna LPN on behalf of: Remigio Real DO documented in this encounter [facility] 08-26-2024 Miscellaneous Notes Patient called she is looking for a new provider. She has been having ongoing double vision, she has seen neuro, eye dr, obgyn, ect. Nobody has an idea what is is going and is freaking out. I want to get her with either you or furlong he's booking out till about October I would feel she is more appropriate for a physician at this time. Would you be okay to accept? documented in this encounter [employer] 08-26-2024 Telephone encounter Note Patient called she is looking for a new provider. She has been having ongoing double vision, she has seen [facility] ect. Nobody has an idea what is is going and is freaking out. I want to get her with either you or furlong he's booking out till about October [employer] 08-26-2024 Telephone encounter Note I would feel she is more appropriate for a physician at this time. [employer] Work Phone: 08-26-2024 Telephone encounter Note Would you be okay to accept? [employer] [facility] 04-17-2023 Note Attestation signed by Pavel Ball [...] remains due to follow up with her weight loss consultant. The episcleritis of her right eye [...] - suggested she seek evaluation by an weight loss consultant for her episcleritis; currently no significant [...] Dr. 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 [facility] Evaluation + Plan note No data available for this section [facility] Evaluation note No assessment inform ation available [facility] Work Phone: Evaluation note Diagnosis Irregular periods PCOS (polycystic ovarian syndrome) Polycystic ovaries Female infertility Female infertility of unspecified origin Mood disorder (CMS/HCC) Unspecified episodic mood disorder documented [facility] No data available for this section [facility] InstructionsNot on filedocumented in this encounter [facility] No data available for this section [facility] Summary Purpose Family History No Family [...] and content) DATE CREATED AUTHOR 03/09/2021 [facility] DATE CREATED AUTHOR AUTHOR'S ORGANIZ ATION 03/09/2023 [facility] DATE CREATED AUTHOR AUTHOR'S ORGANIZ ATION 07/10/2023 [facility] DATE CREATED AUTHOR AUTHOR'S ORGANIZ ATION 08/16/2023 [facility] DATE CREATED AUTHOR AUTHOR'S ORGANIZ ATION 06/08/2024 [facility] DATE CREATED AUTHOR AUTHOR'S ORGANIZ ATION 08/16/2024 [facility] DATE CREATED AUTHOR AUTHOR'S ORGANIZ ATION 08/19/2024 [facility] dical Specialists EPIC Patient Care team [...] August 10, 2024 End: August 10, 2024 Chucking Machine Operator Relationship Specialty Start Date End Date Unallocated, [facility] Provider, [address] [place] [address] PCP - General Family Medicine 08/17/24 Chucking Machine Operator Relationship Specialty Start Date End Date Unallocated, Cong Chi MD [address] [place] [address] PCP - General Family Medicine 08/17/24 Chucking Machine Operator Relationship Specialty Start Date End Date No Pcp, [place] [address] PCP - General Family Medicine 05/31/24 Chucking Machine Operator Relationship Specialty Start Date End Date Unallocated, Cong Chi MD [address] [place] [address] PCP - General Family Medicine 08/17/24 Goals (unrecognized section and content) Goals may be documented in a n alternate section Reason for Visit (unrecogniz ed section and content) Reason Comments Follow up testing FOR RECORDS PERTAINING TO PATIENTS WHO ARE [...] BE BASED ON THE PRIMARY CLINICAL RECORDS. [facility] [employer] [facility]. provides no warranty or guarantee of the accuracy or completeness of information in this document.
--- NOTE | 2024-09-10 16:31 | ED_ITS ---
HPI HPI - General Adult General Chief complaint: Neuro Symptoms/Deficit Stated complaint: throat infection, out of meds Time Seen by Provider: 09/10/24 15:46 History of Present Illness HPI narrative: The patient was initially was diagnosed almost 4 days ago with sialadenitis, coming to the ER with nonspecific symptoms , she did have numbness in the right side of the face but somehow extending from her angle of the mandible up to to her face, nose. No neurological symptoms of any weakness numbness tingling anywhere other than that in the body but she mentioned that it more to the right side of the face as well and the neck. She also have the dryness of the mouth and she noted that her symptoms get worse whenever she is laying backward Related Data Home Medications ?Medication ?Instructions ?Recorded ?Confirmed clindamycin phosphate 1 % lotion topical 09/06/24 metformin 500 mg tablet,extended mg PO 09/06/24 release 24 hr Previous Rx's ?Medication ?Instructions ?Recorded ibuprofen 800 mg tablet 800 mg PO Q8H PRN pain #20 tabs 09/29/23 baclofen 5 mg tablet 5 mg PO TID PRN muscle spasm #14 09/10/24 tabs cephalexin 500 mg capsule 500 mg PO Q8H 7 days #21 caps 09/10/24 Allergies Allergy/AdvReac Type Severity Reaction Status Date / Time No Known Drug Allergies Allergy Verified 09/06/24 11:48 Opioid HPI Opioid Management Most Recent Opioid Data: Last Pain Scale 6 09/29/23 17:21 09/29/23 Review of Systems ROS Status of ROS 10 or more systems reviewed and unremark able except as noted in history and below PFSH PFSH Social History Smoking status: Never smoker Little interest or pleasure in doing things: not at all Feeling down, depressed, or hopeless: not at all Exam Narrative Exam Narrative: Nurses notes and vital signs reviewed and patient is not hypoxic. General: Well-appearing and in no apparent distress. Skin: Warm, dry, no pallor noted. No rash. Head: Normocephalic, atraumatic. Neck: Supple, non-tender. The patient does have some fullness in the right side of the angle of mandible but I could not appreciate any Other findings. Eye: Pupils are equal, round and EOMI. No scleral icterus. Ears, Nose, Mouth, and Throat: TM are clear, no nasal mucosal hypertrophy. Oral mucosa is moist, no posterior oropharynx erythema, uvula is mid-line Cardiovascular: Regular Rate and Rhythm without murmur, gallop or rub. Respiratory: No accessory muscle use or respiratory distress. Lungs are clear to auscultation, no wheezing, rales or rhonchi Chest Wall: no tenderness Back: No midline thoracic or lumbar vertebral tenderness. No CVA tenderness Musculoskeletal: normal ROM, no calf or popliteal tenderness, no lower extremity edema/swelling GI: Abdomen is soft, non-distended. Normal bowel sounds. No masses appreciated. No tenderness to palpation. No rebound, guarding, or rigidity noted. Neurological: A&O x4. No cranial nerve dysfunction observed. No truncal ataxia. Moves all extremities. Sensation intact. Psychiatric: Cooperative and interactive. Normal mood and affect. Constitutional Vital Signs, click to edit/add: Last Vital Signs Temp 98.0 F 09/10/24 15:40 Pulse 99 H 09/10/24 15:40 Resp 20 09/10/24 15:40 BP 158/98 H 09/10/24 15:40 Pulse Ox 100 09/10/24 15:40 O2 Del Method Room Air 09/10/24 15:40 Course Vital Signs Vital signs: Vital Signs Temperature 98.0 F 09/10/24 15:40 Pulse Rate 99 H 09/10/24 15:40 Respiratory Rate 20 09/10/24 15:40 Blood Pressure 158/98 H 09/10/24 15:40 Pulse Oximetry 100 09/10/24 15:40 Oxygen Delivery Method Room Air 09/10/24 15:40 Temperature 98.0 F 09/10/24 15:40 Pulse Rate 99 H 09/10/24 15:40 Respiratory Rate 20 09/10/24 15:40 Blood Pressure 158/98 H 09/10/24 15:40 Pulse Oximetry 100 09/10/24 15:40 Oxygen Delivery Method Room Air 09/10/24 15:40 Medical Decision Making MDM Narrative Medical decision making narrative: The patient initially was offered to repeat the CAT scan of the head although I did explain to her that her symptoms seem to be more peripheral nerve symptoms that could be trigeminal neuralgia The patient did not have any central symptoms and no weakness or any finding on clinical exam The patient mentioned that she does not want a CAT scan to be redone she just want more antibiotic as she ran out of the antibiotic and I did look into her previous antibiotic prescription it was levofloxacin I did recommended that the patient be on Keflex for the next 10 days to cover for sialoadenitis I will also try to cover the patient possible trigeminal neuralgia with baclofen in addition to high-dose ibuprofen and supportive care. 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 The patient agrees with the following Diagnosis and Treatment plan and the patient will be discharged home. Discharge Plan Discharge Chief Complaint: Neuro Symptoms/Deficit Clinical Impression: Sialoadenitis, Trigeminal anesthesia Patient Disposition: Home, Self-Care Time of Disposition Decision: 16:22 Condition: Good Prescriptions / Home Meds: New cephalexin 500 mg capsule 500 mg PO Q8H 7 Days Qty: 21 0RF baclofen 5 mg tablet 5 mg PO TID PRN (Reason: muscle spasm) Qty: 14 0RF No Action ibuprofen 800 mg tablet 800 mg PO Q8H PRN (Reason: pain) Qty: 20 0RF metformin 500 mg tablet extended release 24 hr PO clindamycin phosphate 1 % lotion TOPICAL Print Language: Estonian Instructions: Trigeminal Neuralgia (ED), Sialoadenitis (ED) Referrals: Willam Walter NP [Primary Care Provider] - 1 week
== END 2024-09-10 16:37 | disposition home or self-care (01) ==
PROVIDERS: Emergency Provider Emergency Medicine; PCP Nurse Practitioner Primary Care
DX: K11.20 Sialoadenitis, unspecified (principal); G50.0 Trigeminal neuralgia
CPT/HCPCS: 99283

== ENCOUNTER 2024-09-13 07:41 | Emergency (ER) | payer BC, SELFPAY ==
[2024-09-13 07:48] VITALS: BP 134/95; PULSE 78; TEMP 36.7; O2SAT 99; BMI 35.0
--- OUTSIDE RECORDS SUMMARY | 2024-09-13 07:53 | XMS_ITS | CCD ---
Author Organization [facility] Care Team Providers Care Epic Kaleidoscope Analyst Name Role Phone SHAMMO, SAJAN Admitting Unavailable SHAMMO, SAJAN Attending Unavailable SHAMMO, SAJAN Primary Care Unavailable ChenchoeberErmelinda Consulting Unavailable SHAMMO, SAJAN Consulting Unavailable SHAMMO, SAJAN Admitting Unavailable SHAMMO, SAJAN Attending Unavailable SHAMMO, SAJAN Primary Care Unavailable Zieber, Ermelinda Consulting Unavailable SHAMMO, SAJAN Consulting Unavailable SHAMMO, [...] Care Unavailable Windnagel, ANP-BC Ro Attending Provider [phone] NON STAFF Primary Care Provider Unavailabl e Windnagel, EMAIL DEVELOPER-C Ro C Attending Provider [phone] NON STAFF Primary Care Unavailable Windnagel, Ro C Referring Unavailable Windnagel, Ro Admitting Unavailable Windnagel, Ro Attending Unavailable Windnagel, Ro C Admitting Unavailable Windnagel, Ro C Attending Unavailable NON STAFF Primary Care Unavailable Unallocated Iliana GALLOs Provider Primary Care Provi jim Unallocated MD, Noms Provider Primary Care Provi jim No Pcp, No Pcp Primary Care Provider UnavailJEREMY Avila Attending Unavailable BRUNO RYAN Attending Unavailable RO PATEL Attending Unavailable RO PATEL Referring Unavailable RO PATEL Attending Unavailable RO PATEL Attending Unavailable RO PATEL Attending Unavailable RO PATEL Attending Unavailable BARB STALLINGS Attending Unavailable JEREMY REAL Attending Unavailable Allergies Allergy Classification Reported Allergen(s) Allergy Type Date of Onset Reaction(s) Facility (5 sources) Dextromethorphan / guaiFENesin; Translations: [DEXTROMETHORPHAN- AIFENESIN] Drug Allergy [address] [facility] Repository Medications Current Medications Medication Drug Class(es) Dates Sig (Normalized) Sig (Original) ergocalciferol 1.25 mg oral capsule (4 sources) Provitamin D2 Compound Start: 05-31-2024 End: 05-31-2025 take 1 capsule by mouth every week ergocalciferol (Drisdol) 1.25 MG (86041 UT) capsule Indications: Vitamin D deficiency Take [...] GDLNon AGE GDLN ACOG TESTING Note . [facility] Comment on above: TESTS RESULT FLAG UN ITS REF RANGE LAB Clinician Provided Cytology Information Source.............Cervix;Endocervix No. of containers..01 ThinPrep Vial Age Algmelba ACOG Carmen... FLAG LEGEND: L-Low Normal,H-High Normal,LL-Alert Low,HH-Alert High <-Panic Low,>-Panic High,A-Abnormal,AA-Critical Abnormal Performed at: 01 =[address] [address] Kiesha Monroe MD, HPV APTIMA Negative Negative [facility] Comment on above: This nucleic acid am plification test detects fourteen high- risk HPV types (16,18,31,33,35,39,45,51,52,56,58,59,66,68) without differentiation. Performed at: =[address] [id number] Maintenance Operator: Kiesha Monroe MD, Phone: [phone] Performed at: [address] [id number] Maintenance Operator: Kiesha Monroe MD, Phone: [phone] IGP, APTIMA HPV, RFX 16/18,45 Note . [facility] Comment on above: TESTS RESULT FLAG UN ITS REF RANGE LAB DIAGNOSIS: 02 NEGATIVE FOR INTRAEPITHELIAL LESION OR MALIGNANCY. Specimen adequacy: 02 Satisfactory for evaluation. Endocervical and/or squamous metaplastic cells (endocervical component) are present. Performed by: 02 Samantha Garcia, Systems Development Manager ([facility]) . 02 Note: Note 02 The Pap smear is a screening test designed to aid in the detection of premalignant and malignant conditions of the uterine cervix. It is not a diagnostic procedure and should not be used as the sole means of detecting cervical cancer. Both false-positive and false-negative reports do occur. Test Methodology: Note 02 The Savvify(R) Nailer Operator was unable to read this specimen. Therefore a manual review was performed. FLAG LEGEND: L-Low Normal,H-High Normal,LL-Alert Low,HH-Alert High <-Panic Low,>-Panic High,A-Abnormal,AA-Critical Abnormal Performed at: [address] [place] [address] Kiesha Monroe MD, HPV Genotype Reflex Note 02 Criteria not met, HPV Genotype not performed. Criteria not met, HPV Genotype not performed. BRUSH-SPATULA CERVIX ENDOCERVIX [facility] ALL CBC WITH AUTO DIFFon BASOPHILS ABSOLUTE AUTO 0.0 [facility] Basophils/100 WBC (Bld) 0.6 % 0.2 - 2.0 % [facility] Eosinophils/100 WBC (Bld) 3.2 % 0.9 - 7.0 % [facility] Erythrocyte distribution width (RBC) [Ratio] 12.8 % 11.0 - 15.0 % [facility] Hematocrit (Bld) [Volume fraction] 38.3 % 36.0 - 48.0 % [facility] Hemoglobin (Bld) [Mass/Vol] 12.9 g/dL 12.0 - 16.0 g/dL [facility] IMMATURE GRANULOCYTES ABS AUTO 0.02 [facility] Immature granulocytes/100 WBC (Bld) 0.3 % 0.0 - 0.5 % [facility] LYMPHOCYTES ABSOLUTE AUTO 1.7 [facility] Lymphocytes/100 WBC (Bld) 24.0 % 20.5 - 60.0 % [facility] MCH (RBC) [Entitic mass] 29.4 pg 26.7 - 34.0 pg [facility] MCHC (RBC) [Mass/Vol] 33.7 g/dL 29.9 - 35.2 g/dL [facility] MCV (RBC) [Entitic vol] 87.2 fL 81.0 - 99.0 fL [facility] MONOCYTES ABSOLUTE AUTO 0.4 [facility] Monocytes/100 WBC (Bld) 6.1 % 1.7 - 12.0 % [facility] NEUTROPHILS ABSOLUTE AUTO 4.8 [facility] Neutrophils/100 WBC (Bld) 65.8 % 43.0 - 75.0 % [facility] Platelet mean volume (Bld) [Entitic vol] 11.1 fL 9.5 - 13.5 fL [facility] TBH EO # 0.2 [facility] PLT [address] [facility] RBC 4.39 [facility] TB WBC 7.2 [facility] XR pre/post mri xrayon 08-10 XR pre/post mri xray [facility] Main [address] [address] MRI Report Signed Patient: Eloisa Natarajan MR#: [id number] 36 : 1990 Acct:[id number] Age/Sex: 33 / F ADM Date: 08/10/24 Loc: MR Room: Type: [facility] Attending Dr: Ro MAGDALENO Copies to: RASTA Arzola Ordering Provider: RASTA Arzola Date of Service: 08/10/24 MR/MR lumbar spine wo con: R26.9, M54.50, N39.489, R20.0 ([id number]) XR/XR pre/post mri xray: R26.9, M54.50, N39.489, [...] Eben Morel M.D.08/10/2024 8:33 AM Dictation Location: [place] [address] Transcribed By: [facility] 08/10/2433 Dictated By: Eben Morel DO 08/10/2428 Signed By: 08/10/24832 [facility] MR cervical spine wo conon 0 06-25-2024 MR cervical spine wo con [facility] Main [place] [address] [place] [address] MRI Report Signed Patient: Eloisa Natarajan MR#: [id number] 35 : 1990 Acct:[id number] Age/Sex: 33 / F ADM Date: 06/25/24 Loc: MR Room: Type: [facility] [address] Attending Dr: Ro Patel Adult EMAIL DEVELOPER-BC Copies to: Ro Patel, RASTA Galvan Ordering [...] Yung Jr., D.OAlexx06/25/2024 6:59 PM Dictation Location: [place] [address] Transcribed By: [facility] 06/25/241858 Dictated By: Tony Yung Jr, DO 06/25/241852 Signed By: 06/25/241858 Normal [facility] Folate [Mass/Vol]on 05-31-20 FOLIC ACID 15.0 ng/mL Normal >5.8 [facility] Comment on above: Result Comment: NEW REFERENCE RANGE Performed By: #### 3 016-3, 2284-06, 2132-07, 71814-0 #### [facility] ([id number]) [address], [address] [place] [address] #### 03427-0 #### [facility] ([id number]) [address] [place] [address] Methylmalonate [Moles/Vol]on 05-31-2024 Methylmalonic Acid, QN, P 0.15 nmol/mL Normal <=0.40 [facility] Comment on above: Result Comment: NOTE ADDITIONAL INFORMATION This test was developed and its performance characteristics determined by [facility] in a manner consistent with CLIA requirements. This test has not been cleared or approved by the U.S. Food and Drug Administration. Test Performed by: [facility] [place] [address] Maintenance Operator: Michele Lee Ph.D.; CLIA# [id number] Performed By: #### 3 016-3, 2283-8, 2132-07, 98777-5 #### [facility] ([id number]) [address], [address] [place] [address] #### 69085-1 #### [facility] ([id number]) [address] [place] [address] TSH Qnon 05-31-2024 TSH 2.81 uIU/mL Normal 0.49-4.67 [facility] Comment on above: Performed By: #### 3 016-3, 8, 2132-07, 14844-5 #### [facility] ([id number]) [address], [address] [place] [address] #### 77853-3 #### [facility] ([id number]) [address] [place] [address] VITAMIN B12on 05-31-2024 Cobalamin (Vitamin B12) [Mass/Vol] 297 pg/mL Normal 180-914 [facility] Comment on above: Performed By: #### 3 016-3, 8, 2132-07, 12946-4 #### [facility] ([id number]) [address], [address] [place] [address] #### 06793-1 #### [facility] ([id number]) [address] [place] [address] Vitamin D+Metabolites [Mass/ Vol]on 05-31-2024 VITAMIN D 25 HYD TOT 27.9 ng/mL Low 30-100 [facility] Comment on above: Result Comment: Vitamin D status 25 [place] Vitamin D Deficiency <20 ng/mL Insufficiency 20-29 ng/mL Sufficiency 30-100 ng/mL Toxicity >100 ng/mL NOTE: A pediatric reference range has not been established by the saw repairer of this kit. The [place] [employer] recommends a Vitamin D level of = or >20ng/mL in infants and children. Performed By: #### 3 016-3, 8, 2132-07, 88409-7 #### [facility] ([id number]) [address], [address] [place] [address] #### 06367-2 #### [facility] ([id number]) [address] [place] [address] MR BRAIN W AND WO CONTRAST ( [...] going to have labs faxed over. Normal [facility] Follow-Upon 04-17-2023 Follow-Up [id number] Philomena NATARAJAN 1990 F Date Provider Department Center 04/17/2023 [facility] [facility] R[facility]UM Lian Heal Family History Problem Relation Age of Onset Anxiety disorder Mother Arthritis Mother Depression Mother Alcohol abuse Father Cancer Father Alcohol abuse Sister Anxiety disorder Sister Arthritis Mother's Sister Arthritis Mother's Brother Arthritis Mother's Sister Family Status - Relation Status Age at Mother Father Sister Mother's Sister Mother's Brother Mother's Sister Level of Service:64267 DC OFFICE/OUTPATIENT ESTABLISHED MOD MDM 30-39 MIN () Reason for Visit and Comments: Follow-up [125948] - 2 week follow up Normal [facility] Neurology Forms- Texton - Neurology Forms- Text [id number]#[id number] D:127 [facility] 36on 04-15-2023 36 Spoke w/ pt and she states the pharmacy gave her the run around stating they did not receive her rx from 04/10/23, and could not tell her if rx was sent under maiden name Just to be ob the safe side can you approve a new rx w/ her correct name, now that it has been updated in [facility] 36 Pt left VM in office regarding her name change. She states rx may not have been sent under correct name. Pt needs called to verify what med/s need sent to her pharmacy now that name has been updated in [facility] Consent for Treatmenton 03-25 Consent for Treatment [id number]#[id number] D:127 [facility] ANAon 04-10-2023 WILMA TITER <1:40 Normal <=1:[address] [facility] Comment on above: Order Comment: By IF A Result Comment: Test performed using OMA IFA WILMA Hep-2 Test, a pre-standardized assay designed for the qualitative and semi-quantitative detection of antinuclear antibodies. Performed By: #### L [id number] #### [facility] ([facility]) [address] [place] [address] C3 COMPLEMENTon 04-10-2023 Magnesium [Mass/Vol] 125.00 mg/dL Normal 79.00-152.[address] [facility] Comment on above: Performed By: #### L [id number] #### [facility] ([facility]) [address] [place] [address] C4 COMPLEMENTon 04-10-2023 Magnesium [Mass/Vol] 21.8 mg/dL Normal 16-[address] [facility] Comment on above: Performed By: #### L [id number] #### [facility] ([facility]) [address] [place] [address] CBC WITH AUTO DIFFERENTIALon 04-10-2023 Basophils (Bld) [#/Vol] 0.06 10*3/uL Normal 0.00-0.[address] [facility] Comment on above: Performed By: #### L [id number] #### [facility] ([facility]) [address] [place] [address] Basophils/100 WBC (Bld) 0.7 % Normal 0.0-1.[address] [facility] Comment on above: Performed By: #### L [id number] #### [facility] ([facility]) [address] [place] [address] Eosinophils (Bld) [#/Vol] 0.13 10*3/uL Normal 0.00-0.[address] [facility] Comment on above: Performed By: #### L [id number] #### [facility] ([facility]) [address] [place] [address] Eosinophils/100 WBC (Bld) 1.6 % Normal 0.0-6.[address] [facility] Comment on above: Performed By: #### L [id number] #### [facility] ([facility]) [address] [place] [address] Erythrocyte distribution width (RBC) [Ratio] 13.0 % Normal 11.5-15.[address] [facility] Comment on above: Performed By: #### L [id number] #### [facility] ([facility]) [address] [place] [address] ERYTHROCYTE MEAN CORPUSCULAR HEMOGLOBIN CONCENTRATION (G/DL) BY AUTOMATED 33.4 g/dL Normal 32.0-35.0 [facility] Comment on above: Performed By: #### L [id number] #### [facility] ([facility]) [address] [place] [address] Hematocrit (Bld) [Volume fraction] 43.1 % Normal 36.0-48.[address] [facility] Comment on above: Performed By: #### L [id number] #### [facility] ([facility]) [address] [place] [address] Hemoglobin (Bld) [Mass/Vol] 14.4 g/dL Normal 12.0-15.[address] [facility] Comment on above: Performed By: #### L [id number] #### [facility] ([facility]) [address] [place] [address] Immature granulocytes (Bld) [#/Vol] 0.03 10*3/uL Normal 0.00-0.[address] [facility] Comment on above: Performed By: #### L [id number] #### [facility] ([facility]) [address] [place] [address] Immature granulocytes/100 WBC (Bld) 0.4 % Normal 0.0-1.[address] [facility] Comment on above: Performed By: #### L [id number] #### [facility] ([facility]) [address] [place] [address] Lymphocytes (Bld) [#/Vol] 1.79 10*3/uL Normal 1.20-4.[address] [facility] Comment on above: Performed By: #### L [id number] #### [facility] ([facility]) [address] [place] [address] Lymphocytes/100 WBC (Bld) 21.8 % Normal 20.0-45.[address] [facility] Comment on above: Performed By: #### L [id number] #### [facility] ([facility]) [address] [place] [address] MCH (RBC) [Entitic mass] 28.5 pg Normal 27.0-33.[address] [facility] Comment on above: Performed By: #### L [id number] #### [facility] ([facility]) [address] [place] [address] MCV (RBC) [Entitic vol] 85.2 fL Normal 82.0-98.[address] [facility] Comment on above: Performed By: #### L [id number] #### [facility] ([facility]) [address] [place] [address] Monocytes (Bld) [#/Vol] 0.55 10*3/uL Normal 0.10-1.[address] [facility] Comment on above: Performed By: #### L [id number] #### [facility] ([facility]) [address] [place] [address] Monocytes/100 WBC (Bld) 6.7 % Normal 5.0-12.[address] [facility] Comment on above: Performed By: #### L [id number] #### [facility] ([facility]) [address] [place] [address] Neutrophils (Bld) [#/Vol] 5.65 10*3/uL Normal 1.60-7.[address] [facility] Comment on above: Performed By: #### L [id number] #### [facility] ([facility]) [address] [place] [address] Neutrophils/100 WBC (Bld) 68.8 % Normal 40.0-72.[address] [facility] Comment on above: Performed By: #### L [id number] #### [facility] ([facility]) [address] [place] [address] NRBC (PER 100 WBCS) BY AUTOMATED COUNT 0.0 % Normal [address] [facility] Comment on above: Performed By: #### L [id number] #### [facility] ([facility]) [address] [place] [address] PLATELETS (10*3/UL) IN BLOOD AUTOMATED COUNT 320 10*3/uL Normal 150-[address] [facility] Comment on above: Performed By: #### L [id number] #### [facility] ([facility]) [address] [place] [address] RBC (Bld) [#/Vol] 5.06 10*6/uL High 3.80-5.00 [facility] Comment on above: Performed By: #### L [id number] #### [facility] ([facility]) [address] [place] [address] WBC (Bld) [#/Vol] 8.21 10*3/uL Normal 4.00-10.60 [facility] Comment on above: Performed By: #### L [id number] #### [facility] ([facility]) [address] [place] [address] COMPREHENSIVE METABOLIC PANE Philip 04-10-2023 Albumin [Mass/Vol] 4.7 g/dL Normal 3.5-5.7 [facility] Comment on above: Performed By: #### L [id number] #### [facility] ([facility]) [address] [place] [address] ALP [Catalytic activity/Vol] 74 U/L Normal 34-[address] [facility] Comment on above: Performed By: #### L [id number] #### [facility] ([facility]) [address] [place] [address] ALT [Catalytic activity/Vol] 21 U/L Normal 7-[address] [facility] Comment on above: Performed By: #### L [id number] #### [facility] ([facility]) [address] [place] [address] Anion gap [Moles/Vol] 11 mmol/L Normal 7-[address] [facility] Comment on above: Performed By: #### L [id number] #### [facility] ([facility]) [address] [place] [address] AST [Catalytic activity/Vol] 18 U/L Normal 13-[address] [facility] Comment on above: Performed By: #### L [id number] #### [facility] ([facility]) [address] [place] [address] Bilirubin [Mass/Vol] 0.6 mg/dL Normal 0.3-1.[address] [facility] Comment on above: Performed By: #### L [id number] #### [facility] ([facility]) [address] [place] [address] Calcium [Mass/Vol] 9.2 mg/dL Normal 8.6-10.3 [facility] Comment on above: Performed By: #### L [id number] #### [facility] ([facility]) [address] [place] [address] Chloride [Moles/Vol] 106 mmol/L Normal 98-[address] [facility] Comment on above: Performed By: #### L [id number] #### [facility] ([facility]) [address] [place] [address] CO2 [Moles/Vol] 25 mmol/L Normal 21-31 [facility] Comment on above: Performed By: #### L [id number] #### [facility] ([facility]) [address] [place] [address] Creatinine [Mass/Vol] 0.86 mg/dL Normal 0.60-1.[address] [facility] Comment on above: Performed By: #### L [id number] #### [facility] ([facility]) [address] [place] [address] GLOMERULAR FILTRATION RATE ML/MIN/1.73 SQ M.PREDICTED 91.4 mL/min/1.73m*2 Normal >60.0 [facility] Comment on above: Result Comment: [facility]???s estimated glomerular filtration rate (eGFR) will [...] individuals. Performed By: #### L [id number] #### [facility] ([facility]) [address] [place] [address] Glucose [Mass/Vol] 80 mg/dL Normal 70-100 [facility] Comment on above: Performed By: #### L [id number] #### [facility] ([facility]) [address] [place] [address] Potassium [Moles/Vol] 3.8 mmol/L Normal 3.5-5.[address] [facility] Comment on above: Performed By: #### L [id number] #### [facility] ([facility]) [address] [place] [address] Protein [Mass/Vol] 7.2 g/dL Normal 6.0-8.3 [facility] Comment on above: Performed By: #### L [id number] #### [facility] ([facility]) [address] [place] [address] Sodium [Moles/Vol] 138 mmol/L Normal 136-145 [facility] Comment on above: Performed By: #### L [id number] #### [facility] ([facility]) [address] [place] [address] Urea nitrogen [Mass/Vol] 12 mg/dL Normal 7-[address] [facility] Comment on above: Performed By: #### L [id number] #### [facility] ([facility]) [address] [place] [address] UREA NITROGEN/CREATININE (MASS RATIO) IN SER/PLAS 14.[address] [facility] Comment on above: Performed By: #### L [id number] #### [facility] ([facility]) [address] [place] [address] EXTRACTABLE NUCLEAR ANTIGEN ANTIBODIESon 04-10-2023 ANTI SM AB Negative Normal [facility] Comment on above: Performed By: #### L [id number] #### [facility] ([facility]) [address] [place] [address] ANTI SM/ANTIRNP AB Negative Normal [facility] Comment on above: Performed By: #### L [id number] #### [facility] ([facility]) [address] [place] [address] Office Visiton 04-10-2023 Follow-up visit [id number] Jose Maria Avalos 1990 F Date Provider Department Center 04/10/2023 [place] [facility] Lian Heal Family History Problem Relation Age of Onset Anxiety disorder Mother Arthritis Mother Depression Mother Alcohol abuse Father Cancer Father Alcohol abuse Sister Anxiety disorder Sister Arthritis Mother's Sister Arthritis Mother's Brother Arthritis Mother's Sister Family Status - Relation Status Age at Mother Father Sister Mother's Sister Mother's Brother Mother's Sister Level of Service:21561 DC OFFICE/OUTPATIENT NEW MODERATE MDM 45-59 MINUTES (GC) Reason for Visit and Comments: New Patient [632] - Polyarthralgia Normal [facility] SJOGRENS SYNDROME ANTIBODIES A AND Bon 04-10-2023 VETO TO SSA (RO) ANTIBODY Negative Normal Negative [facility] Comment on above: Performed By: #### L [id number] #### [facility] ([facility]) [address] [place] [address] VETO TO SSB (LA) ANTIBODY Negative Normal Negative [facility] Comment on above: Performed By: #### L [id number] #### [facility] ([facility]) [address] [place] [address] URINALYSISon 04-10-2023 BILIRUBIN, TOTAL PRESENCE IN URINE Negative Normal Negative [facility] Comment on above: Performed By: #### L [id number] #### [facility] ([facility]) [address] [place] [address] Clarity (U) Slightly Cloudy Abnormal Clear [facility] Comment on above: Performed By: #### L [id number] #### [facility] ([facility]) [address] [place] [address] Color (U) Yellow Normal Yellow [facility] Comment on above: Performed By: #### L [id number] #### [facility] ([facility]) [address] [place] [address] Glucose (U) [Mass/Vol] Negative Normal Negative [facility] Comment on above: Performed By: #### L [id number] #### [facility] ([facility]) [address] [place] [address] HEMOGLOBIN PRESENCE IN URINE Negative Normal Negative [facility] Comment on above: Performed By: #### L [id number] #### [facility] ([facility]) [address] [place] [address] Ketones Ql (U) Negative Normal Negative [facility] Comment on above: Performed By: #### L [id number] #### [facility] ([facility]) [address] [place] [address] LEUKOCYTE ESTERASE PRESENCE IN URINE BY TEST STRIP Negative Normal Negative [facility] Comment on above: Performed By: #### L [id number] #### [facility] ([facility]) [address] [place] [address] NITRITE PRESENCE IN URINE Negative Normal Negative [facility] Comment on above: Performed By: #### L [id number] #### [facility] ([facility]) [address] [place] [address] pH (U) 6.0 [pH] Normal 5.0-8.[address] [facility] Comment on above: Performed By: #### L [id number] #### [facility] ([facility]) [address] [place] [address] Protein (U) [Mass/Vol] 30 mg/dL Abnormal Negative [facility] Comment on above: Performed By: #### L [id number] #### [facility] ([facility]) [address] [place] [address] Specific gravity (U) [Rel density] 1.026 High 1.015-1.[address] [facility] Comment on above: Performed By: #### L [id number] #### [facility] ([facility]) [address] [place] [address] UROBILINOGEN (EU/DL) IN URINE 2.0 EU/dL Abnormal Negative [facility] Comment on above: Performed By: #### L [id number] #### [facility] ([facility]) [address] [place] [address] URINALYSIS MICROSCOPICon CASTS IN URINE Normal [facility] Comment on above: Performed By: #### L [id number] #### [facility] ([facility]) [address] [place] [address] CRYSTALS IN URINE Normal [facility] Comment on above: Performed By: #### L [id number] #### [facility] ([facility]) [address] [place] [address] MUCUS (#/HPF) IN URINE SEDIMENT Moderate Abnormal None Seen, Occasional, Few [facility] Comment on above: Performed By: #### L [id number] #### [facility] ([facility]) [address] [place] [address] RBC (#/HPF) IN URINE SEDIMENT 0-2 Abnormal None Seen [facility] Comment on above: Performed By: #### L [id number] #### [facility] ([facility]) [address] [place] [address] SQUAMOUS EPITHELIAL CELLS (#/HPF) IN URINE SEDIMENT Many Abnormal None Seen, Occasional [facility] Comment on above: Performed By: #### L [id number] #### [facility] ([facility]) [address] [place] [address] WBC (LEUKOCYTE) (#/HPF) IN URINE SEDIMENT 0-2 Abnormal None Seen [facility] Comment on above: Performed By: #### L [id number] #### [facility] ([facility]) [address] [place] [address] Physician Orderon 04-08-2023 Physician Order [id number] D:127 Normal [facility] WILMA EIA W/REFLEX 9 BIOMARKER Son 03-05-2023 WILMA Direct Negative Normal Negative [facility] Comment on above: Performed By: #### A NARF9 #### [facility] [address] [place] [address] Dr. Altagracia Allen C-REACTIVE PROTEINS (HS)on 0 03-05-2023 C-Reactive Protein, Cardiac 2.96 mg/L Normal 0.00-3.00 [facility] Comment on above: Result Comment: Rela tive Risk for Future Cardiovascular Event Low <1.00 Average 1.00 - 3.00 High >3.00 Performed By: #### C RPHS #### [facility] [address] [address] [address] Altagracia Allen CYCLIC CITRULLINATED PEPTIDE AB (CCP)on 03-05-2023 CCP Antibodies IgG/IgA 4 units Normal 0-19 [facility] Comment on above: Result Comment: Nega tive <20 Weak positive 20 - 39 Moderate positive 40 - 59 Strong positive >59 Performed By: #### C CPAB #### [facility] [address] [address] [address] Altagracia Allen HIV 1 AND 2 WITH REFLEXon HIV Screen 4th Generation wRfx Non-Reactive Normal Non Reactive [facility] Comment on above: Result Comment: HIV Negative HIV-1/HIV-2 antibodies and HIV-1 p24 antigen were NOT detected. There is no laboratory evidence of HIV infection. Performed By: #### H IV12 #### [facility] [address] [address] [address] Altagracia Allen MRI TSPINE WO CONon [...] or abnormal marrow signal. Electronically authenticated by: ERMELINDA PAIGE Date: 2023-03-05 14:38 Normal [facility] RHEUMATOID FACTORon 03-05-20 RA Latex Turbid. <10.0 Normal <14.0 [facility] Comment on above: Performed By: #### R F ####[facility] [address] [place], [place] [address]NyDr. Altagracia Allen SED RATE WESTERGRENon 2022 SED RATE 14 mm/hr Normal <=20 [facility] Comment on above: Performed By: #### S EDR #### [facility] [address] [address] [address] Altagracia Allen HEMOGRAM AND PLATELon 04-04- 2023 Hematocrit (Bld) [Volume fraction] 40.0 % Normal 36.0-48.0 [facility] Comment on above: Performed By: #### H H ####[facility] [address] [address]Dr. Altagracia Allen Hemoglobin (Bld) [Mass/Vol] 13.5 g/dL Normal 12.0-16.0 [facility] Comment on above: Performed By: #### H H ####[facility] [address] [place], [place] [address]Dr. Altagracia Allen MCH (RBC) [Entitic mass] 28.5 pg Normal 26.7-34.0 [facility] Comment on above: Performed By: #### H H ####[facility] [address] [place], [place] [address]Dr. Altagracia Allen MCHC (RBC) [Mass/Vol] 33.8 g/dL Normal 29.9-35.2 [facility] Comment on above: Performed By: #### H H ####[facility] [address] [place], [place] [address]DrAlexx Altagracia Allen MCV (RBC) [Entitic vol] 84.6 fL Normal 81.0-99.0 [facility] Comment on above: Performed By: #### H H ####[facility] [address] [place], [place] [address]Dr. Maryellenneema Alejandro PLT 271 103/ul Normal 150-450 [facility] Comment on above: Performed By: #### H H ####[facility] [address] [place], [place] [address]Dr. Maryellenneema Allen RBC 4.73 106/ul Normal 4.20-5.40 [facility] Comment on above: Performed By: #### H H ####[facility] [address] [place], [place] [address]DrAlexx Allen WBC 8.0 103/ul Normal 4.0-11.0 [facility] Comment on above: Performed By: #### H H ####[facility] [address] [place], [place] [address]DrAlexx Allen LIPID PROFILEon 02-25-2023 CHOL-HDL RATIO NORM SEE BELOW Normal [facility] Comment on above: Result Comment: 3.3 - 4.4 LOW RISK 4.4 - 7.1 AVERAGE RISK 7.1 - 11.0 MODERATE RISK >11.0 HIGH RISK Performed By: #### L IPID, TSHRFT4, CMP #### [facility] [address] [address] [address] Altagracia Allen Cholesterol [Mass/Vol] 175 mg/dL Normal <=200 [facility] Comment on above: Performed By: #### L IPID, TSHRFT4, CMP #### [facility] [address] [address] [address] Altagracia Allen Cholesterol in HDL [Mass/Vol] 29 mg/dL Critically low 40-60 [facility] Comment on above: Performed By: #### L IPID, TSHRFT4, CMP #### [facility] [address] [address] [address] Altagracia Allen Cholesterol in LDL [Mass/Vol] 127.2 mg/dL Normal [facility] Comment on above: Performed By: #### L IPID, TSHRFT4, CMP #### [facility] [address] [address] [address] Altagracia Allen Cholesterol.total/C holesterol in HDL [Mass ratio] 6.0 {ratio} Normal [facility] Comment on above: Performed By: #### L IPID, TSHRFT4, CMP #### [facility] [address] [address] [address] Altagracia Allen HDL NORMAL > or = 60 mg/dl - LO W CARDIOVASCULAR RISK <40 mg/dl - HIGH CARDIOVASCULAR RISK Normal [facility] Comment on above: Performed By: #### L IPID, TSHRFT4, CMP #### [facility] [address] [address] [address] Altagracia Allen LDL CALC NORMAL SEE BELOW Normal [facility] Comment on above: Result Comment: <100 mg/dl OPTIMAL 100 - 129 mg/dl NEAR OR ABOVE OPTIMAL 130 - 159 mg/dl BORDERLINE HIGH 160 - 189 mg/dl HIGH >190 mg/dl VERY HIGH Performed By: #### L IPID, TSHRFT4, CMP #### [facility] [address] [address] [address] Altagracia Allen Triglyceride [Mass/Vol] 94 mg/dL Normal <=150 [facility] Comment on above: Performed By: #### L IPID, TSHRFT4, CMP #### [facility] [address] [address] [address] Altagracia Allen VLDL CALC 18.8 mg/dL Normal [facility] Comment on above: Performed By: #### L IPID, TSHRFT4, CMP #### [facility] [address] [address] [address] Altagracia Allen PROF 14(COMP METB)on 023 Albumin [Mass/Vol] 3.6 g/dL Normal 3.4-5.0 [facility] Comment on above: Performed By: #### L IPID, TSHRFT4, CMP #### [facility] [address] [place] [address] Dr. Altagracia Allen Albumin/Globulin [Mass ratio] 1.1 {ratio} Normal [facility] Comment on above: Performed By: #### L IPID, TSHRFT4, CMP #### [facility] [address] [place] [address] Dr. Altagracia Allen ALP [Catalytic activity/Vol] 72 U/L Normal 46-116 [facility] Comment on above: Performed By: #### L IPID, TSHRFT4, CMP #### [facility] [address] [place] [address] Dr. Altagracia Allen ALT [Catalytic activity/Vol] 27 U/L Normal 14-59 [facility] Comment on above: Performed By: #### L IPID, TSHRFT4, CMP #### [facility] [address] [place] [address] Dr. Altagracia Allen Anion gap [Moles/Vol] 13.8 mmol/L Normal [facility] Comment on above: Performed By: #### L IPID, TSHRFT4, CMP #### [facility] [address] [address] [address] Altagracia Allen AST [Catalytic activity/Vol] 17 U/L Normal 15-37 [facility] Comment on above: Performed By: #### L IPID, TSHRFT4, CMP #### [facility] [address] [address] [address] Altagracia Allen Bilirubin [Mass/Vol] 0.2 mg/dL Normal 0.2-1.0 [facility] Comment on above: Performed By: #### L IPID, TSHRFT4, CMP #### [facility] [address] [place] [address] Dr. Altagracia Allen Calcium [Mass/Vol] 8.6 mg/dL Normal 8.5-10.1 [facility] Comment on above: Performed By: #### L IPID, TSHRFT4, CMP #### [facility] [address] [place] [address] Dr. Altagracia Allen Chloride [Moles/Vol] 106 mmol/L Normal 98-107 [facility] Comment on above: Performed By: #### L IPID, TSHRFT4, CMP #### [facility] [address] [address] [address] Altagracia Allen CO2 [Moles/Vol] 23.7 mmol/L Normal 21.0-32.0 [facility] Comment on above: Performed By: #### L IPID, TSHRFT4, CMP #### [facility] [address] [place] [address] Dr. Altagracia Allen Creatinine [Mass/Vol] 0.76 mg/dL Normal 0.55-1.02 [facility] Comment on above: Performed By: #### L IPID, TSHRFT4, CMP #### [facility] [address] [place] [address] Dr. Altagracia Allen EGFR-AF ANDORRAN >60 Normal >=60 [facility] Comment on above: Performed By: #### L IPID, TSHRFT4, CMP #### [facility] [address] [place] [address] Dr. Altagracia Allen EGFR-NON AF ANDORRAN >60 Normal >=60 [facility] Comment on above: Performed By: #### L IPID, TSHRFT4, CMP #### [facility] [address] [address] [address] Altagracia Allen Globulin (S) [Mass/Vol] 3.4 g/dL Normal [facility] Comment on above: Performed By: #### L IPID, TSHRFT4, CMP #### [facility] [address] [address] [address] Altagracia Allen Glucose [Mass/Vol] 92 mg/dL Normal 74-106 [facility] Comment on above: Performed By: #### L IPID, TSHRFT4, CMP #### [facility] [address] [place] [address] Dr. Altagracia Allen Potassium [Moles/Vol] 3.5 mmol/L Normal 3.5-5.1 [facility] Comment on above: Performed By: #### L IPID, TSHRFT4, CMP #### [facility] [address] [place] [address] Dr. Altagracia Allen Protein [Mass/Vol] 7.0 g/dL Normal 6.4-8.2 [facility] Comment on above: Performed By: #### L IPID, TSHRFT4, CMP #### [facility] [address] [place] [address] Dr. Altagracia Allen Sodium [Moles/Vol] 140 mmol/L Normal 136-145 [facility] Comment on above: Performed By: #### L IPID, TSHRFT4, CMP #### [facility] [address] [place] [address] Dr. Altagracia Allen Urea nitrogen [Mass/Vol] 13.0 mg/dL Normal 7.0-18.0 [facility] Comment on above: Performed By: #### L IPID, TSHRFT4, CMP #### [facility] [address] [place] [address] Dr. Altagracia Allen Urea nitrogen/Creatinine [Mass ratio] 17.1 mg/mg Normal [facility] Comment on above: Performed By: #### L IPID, TSHRFT4, CMP #### [facility] [address] [address] [address] Altagracia Allen TSH W/ REFLEX TO FT4on 02-25 TSH 2.830 uIU/mL Normal 0.358-3.740 [facility] Comment on above: Performed By: #### L IPID, TSHRFT4, CMP #### [facility] [address] [address] [address] Altagracia Allen XR TSPINE 3 VIEWSon [...] or significant degenerative changes. Electronically authenticated by: ERMELINDA PAIGE Date: 2023-02-14 07:59 Normal [facility] CBC W/DIFFon 01-23-2021 ABS BASOPHILS 0.1 10*3/uL Normal 0.0-0.2 [facility] Comment on above: Performed By: #### 5 0103 #### [facility] [address] [facility]. [address] ABS IMM GRANS 0.0 10*3/uL Normal 0.0-0.2 [facility] Comment on above: Performed By: #### 5 0103 #### [facility] [address] ABS NEUTROPHILS 4.9 10*3/uL Normal 1.6-7.6 The [facility] Comment on above: Performed By: #### 5 0103 #### [facility] [address] Basophils/100 WBC (Bld) 0.7 % Normal 0.0-1.[address] [facility] Comment on above: Performed By: #### 5 0103 #### [facility] [address] [place] [address], [facility] Eosinophils (Bld) [#/Vol] 0.3 10*3/uL Normal 0.0-0.[address] [facility] Comment on above: Performed By: #### 5 0103 #### [facility] [address] [place] [address], [facility] Eosinophils/100 WBC (Bld) 3.6 % Normal 0.0-6.[address] [facility] Comment on above: Performed By: #### 5 0103 #### [facility] [address] Erythrocyte distribution width (RBC) [Ratio] 13.2 % Normal 11.5-15.[address] [facility] Comment on above: Performed By: #### 5 0103 #### [facility] [address] [facility] [place] [address], [facility] Hematocrit (Bld) [Volume fraction] 44.2 % Normal 36.0-45.[address] [facility] Comment on above: Performed By: #### 5 0103 #### [facility] [address] [place] [address], [facility] Hemoglobin (Bld) [Mass/Vol] 14.4 g/dL Normal 12.0-15.[address] [facility] Comment on above: Performed By: #### 5 0103 #### [facility] [address] [facility] [place] [address], [facility] IMMATURE GRANS 0.4 % Normal 0.0-1.0 [facility] Comment on above: Performed By: #### 5 3 #### [facility] [address] [place] [address], [facility] Lymphocytes (Bld) [#/Vol] 1.8 10*3/uL Normal 1.2-4.[address] [facility] Comment on above: Performed By: #### 5 0103 #### [facility] [address] [facility] [place] [address], [facility] Lymphocytes/100 WBC (Bld) 23.3 % Normal 20.0-45.[address] [facility] Comment on above: Performed By: #### 5 0103 #### [facility] [address] [place] [address], [facility] MCH (RBC) [Entitic mass] 29.1 pg Normal 27.0-33.[address] [facility] Comment on above: Performed By: #### 5 0103 #### [facility] [address] [place] [address], [facility] MCHC (RBC) [Mass/Vol] 32.6 g/dL Normal 32.0-35.[address] [facility] Comment on above: Performed By: #### 5 0103 #### [facility] [address] [place] [address], [facility] MCV (RBC) [Entitic vol] 89.3 fL Normal 82.0-98.[address] [facility] Comment on above: Performed By: #### 5 0103 #### [facility] [address] [place] [address], [facility] Monocytes (Bld) [#/Vol] 0.6 10*3/uL Normal 0.1-1.[address] [facility] Comment on above: Performed By: #### 5 0103 #### [facility] [address] [place] [address], [facility] MONOS 7.6 % Normal 5.0-12.[address] [facility] Comment on above: Performed By: #### 5 3 #### [facility] [address] [facility] [place] [address], [facility] Neutrophils/100 WBC (Bld) 64.4 % Normal 40.0-72.0 [facility] Comment on above: Performed By: #### 5 0103 #### [facility] [address] [facility]. [address] Nucleated RBC/100 WBC (Bld) [Ratio] 0 % Normal 0-[address] [facility] Comment on above: Performed By: #### 5 0103 #### [facility] [address] [facility] [place] [place] [address], [facility] PLAT CNT 264 10*3/uL Normal 150-400 [facility] Comment on above: Performed By: #### 5 0103 #### [facility] [address] RBC (Bld) [#/Vol] 4.95 10*6/uL Normal 3.80-5.00 The [facility] Comment on above: Performed By: #### 5 0103 #### [facility] [address] WBC (Bld) [#/Vol] 7.59 10*3/uL Normal 4.00-10.60 [facility] Comment on above: Performed By: #### 5 0103 #### [facility] [address] COMP METABOLIC PANELon 01-23 Albumin [Mass/Vol] 4.4 g/dL Normal 3.5-5.7 [facility] Comment on above: Performed By: #### 4 6435, 04563, 09553 #### [facility] [address] ALKALINE PHOSPH 64 IU/L Normal 34-104 The [facility] Comment on above: Performed By: #### 4 6413, 92614, 53909 #### [facility] [address] [facility]. [address] ALT [Catalytic activity/Vol] 13 U/L Normal 7-[address] [facility] Comment on above: Performed By: #### 4 6413, 01287, 97772 #### [facility] [address] [place] [address], [place] AST [Catalytic activity/Vol] 14 U/L Normal 13-[address] [facility] Comment on above: Performed By: #### 4 6413, 08174, [address]68 #### [facility] [address] [place] [address], [place] Bilirubin [Mass/Vol] 0.4 mg/dL Normal 0.3-1.[address] [facility] Comment on above: Performed By: #### 4 6413, 27332, 13011 #### [facility] [address] [place] [address], [place] Calcium [Mass/Vol] 9.2 mg/dL Normal 8.6-10.3 [facility] Comment on above: Performed By: #### 4 6413, 80718, 11494 #### [facility] [address] [place] [address], [place] Chloride [Moles/Vol] 105 mmol/L Normal 98-107 [facility] Comment on above: Performed By: #### 4 6413, 63459, 29137 #### [facility] [address] [place] [address], [place] CO2 [Moles/Vol] 28 mmol/L Normal 21-31 [facility] Comment on above: Performed By: #### 4 6413, 68910, 77012 #### [facility] [address] [place] [address], [place] Creatinine [Mass/Vol] 0.90 mg/dL Normal 0.60-1.[address] [facility] Comment on above: Performed By: #### 4 6413, 12196, 15369 #### [facility] [address] [place] [address], [place] GFR/1.73 sq M predicted among blacks MDRD (S/P/Bld) [Vol rate/Area] mL/min/{1.73_m2} Normal >[address] [facility] Comment on above: Performed By: #### 4 6413, 40872, 02379 #### [facility] [address] [place] [address], [place] GFR/1.73 sq M predicted among non-blacks MDRD (S/P/Bld) [Vol rate/Area] mL/min/{1.73_m2} Normal >[address] [facility] Comment on above: Performed By: #### 4 6413, 21914, 80087 #### [facility] [address] [place] [address], [place] Glucose [Mass/Vol] 86 mg/dL Normal 70-100 [facility] Comment on above: Performed By: #### 4 6413, 25163, 94676 #### [facility] [address] [place] [address], [place] Potassium [Moles/Vol] 3.9 mmol/L Normal 3.5-5.[address] [facility] Comment on above: Performed By: #### 4 6413, 08445, 53462 #### [facility] [address] [place] [address], [place] Protein [Mass/Vol] 7.1 g/dL Normal 6.0-8.3 [facility] Comment on above: Performed By: #### 4 [id number], [id number], [id number] #### [facility] [address] [place] [address], [place] Sodium [Moles/Vol] 138 mmol/L Normal 136-145 [facility] Comment on above: Performed By: #### 4 [id number], [id number], [id number] #### [facility] [address] [place] [address], [place] Urea nitrogen [Mass/Vol] 11 mg/dL Normal 7-25 [facility] Comment on above: Performed By: #### 4 [id number], 40804, 17138 #### [facility] [address] [place] [address], [facility] LIPID PROFILEon 01-23-2021 Cholesterol [Mass/Vol] 162 mg/dL Normal 120-[address] [facility] Comment on above: Result Comment: CHOL ESTEROL REFERENCE RANGE: 20 YEARS AND OLDER CARDIOVASCULAR RISK Less than 200 mg/dl Low Risk 200 to 239 mg/dl Borderline Risk 240 mg/dl and greater High Risk Performed By: #### 4 [id number], 12855, 05664 #### [facility] [address] [place] [address], [facility] Cholesterol in HDL [Mass/Vol] 38 mg/dL Normal 23-92 [facility] Comment on above: Result Comment: Slig ht variation in normal range could be due to gender and/or age. HDL CHOLESTEROL REFERENCE RANGE: 20 years and older Cardiovascular Risk > or =60 mg/dL Desirable 40 TO 59 mg/dL Low Risk <40 mg/dL High Risk Performed By: #### 4 [id number], 90676, 62511 #### [facility] [address] [place] [address], [facility] Cholesterol in LDL [Mass/Vol] 111 mg/dL Normal 0-130 [facility] Comment on above: Result Comment: LDL IS A CALCULATION LDL IS ONLY VALID IF THE TRIG IS LESS THAN 400. Performed By: #### 4 6413, 55403, 48316 #### [facility] [address] [place] [address], [place] Cholesterol.total/C holesterol in HDL [Mass ratio] 4.3 {ratio} Normal 0.0-4.[address] [facility] Comment on above: Performed By: #### 4 [id number], 18001, 70360 #### [facility] [address] [place] [address], [place] NON-HDL CHOLESTEROL 124 mg/dL Normal [facility] Comment on above: Performed By: #### 4 6413, 75806, 46553 #### [facility] [address] Triglyceride [Mass/Vol] 66 mg/dL Normal 40-[address] [facility] Comment on above: Result Comment: TRIG LYCERIDE REFERENCE RANGE: 20 YEARS AND OLDER CARDIOVASCULAR RISK LESS THAN 150 mg/dl LOW RISK 150 TO 199 mg/dl BORDERLINE RISK 200 mg/dl AND GREATER HIGH RISK Performed By: #### 4 [id number], 38177, 86701 #### [facility] [address] VLDL CHOL 13 mg/dL Normal 0-[address] [facility] Comment on above: Performed By: #### 4 [id number], 58722, 87728 #### [facility] [address] TSH3 WITH REFLEX FT4on 01-23 TSH 3RD GENERATION 1.73 uIU/mL Normal 0.34-5.60 [facility] Comment on above: Performed By: #### 4 6413, 99450, 38209 #### [facility] [address] Vital Signs Date Time Vital Sign Value Performing Clinician Gabi zuñiga 09-08-2024 10:53-0400 Body mass index (BMI) [Ratio] 36.31 kg/m2 AMT DO Work Phone: [facility] 09-08-2024 10:53-0400 Body weight 108.32 kg AMT DO Work Phone: [facility] 09-08-2024 10:53-0400 Diastolic blood pressure 70 mm[Hg] [employer] Work Phone: [facility] 09-08-2024 10:53-0400 Systolic blood pressure 120 mm[Hg] [employer] Work Phone: [facility] Healthcare Encounters Encounter Date Encounter Type Care Provider Facility Start: 09-08-2024 End: 09-08-2024 Office outpatient visit 15 minutes Jeremy Real DO Work Phone: [facility] Comment on above: Irregular periods; PCOS (polycystic ovarian syndrome); Female infertility; Mood disorder ([facility]/HCC) Start: 09-08-2024 End: 09-08-2024 ambulatory JEREMY REAL Not Available Start: 08-26-2024 End: 08-30-2024 Telephone encounter Charlotte Link APRN-GUITAR MAKER Work Phone: [facility] Start: [...] [facility] External Department Unsolicited Start: 08-19-2024 End: 08-19-2024 ambulatory BARB STALLINGS Not Available Start: 08-17-2024 End: 08-17-[address] C CARLOSNAGEL Not Available Start: 08-10-2024 End: 08-10-2024 Patient encounter procedure [facility] Ro Carlosnagel Work Phone: [facility] [place] Work Phone: Start: 08-10-2024 End: 08-10-2024 ambulatory NON STAFF [facility] Work Phone: Start: 07-01-2024 End: 07-01-2024 ambulatory RO C WINDNAGEL Not Available Start: 06-25-2024 End: 06-25-2024 Patient encounter procedure ANP-BC Ro Windnagel Work Phone: [facility] [place] Work Phone: Start: 06-25-2024 End: 06-25-2024 ambulatory NON STAFF [facility] Work Phone: Start: 06-08-2024 End: 06-08-2024 ambulatory RO C WINDNAGEL Not Available Start: 06-01-2024 End: 06-01-2024 ambulatory RO C WINDNAGEL Not Available Start: 05-31-2024 End: 05-31-2024 ambulatory RO C WINDNAGEL [facility] Start: 05-13-2024 End: 05-13-2024 ambulatory RO C WINDNAGEL Not Available Start: 04-29-2024 End: 04-29-2024 [address] RO C WINDNAGEL Not Available Start: 02-17-2024 End: 02-17-2024 ambulatory RBUNO A PETLAI Not Available Start: 02-03-2024 End: 02-03-2024 ambulatory JEREMY JAEGERZIO Not Available Start: 07-08-2023 End: 07-09-2023 ambulatory Ro Windnagel Facility:[facility] [place] Start: 07-08-2023 End: 07-08-2023 Patient encounter procedure CAREN FULTON [facility] Start: 04-28-2023 ambulatory SAJAN MACKMO Facility:[facility] [place] Start: 04-17-2023 End: 04-17-2023 ambulatory [facility] Start: 04-15-2023 End: 04-16-2023 ambulatory Ro Windnagel Facility:[facility] Start: 04-10-2023 End: 04-10-2023 ambulatory [facility] Start: 03-04-2023 End: 03-05-2023 ambulatory SAJAN SHAMMO Facility: Start: 03-01-2023 Encounter for genera l adult medical examination without [facility] Start: 02-25-2023 End: 02-26-2023 ambulatory [facility] Facility:H1 Start: 02-25-2023 End: 02-26-2023 Encounter for general adult medical examination without abnormal findings [facility] Facility:[facility] Start: 02-13-2023 End: 02-14-2023 ambulatory [facility] Facility: Procedures Date Procedure Procedure Detail Performing Clinician Start: 08-24-2024 ALL CBC WITH AUTO DIFF Barb CLOUD Work Phone: Start: 08-19-2024 IGP,APTIMA HPV,AGE GDLN Barb CLOUD Work Phone: Start: 08-19-2024 Microscopic observat ion [Identifier] in Cervix by Cyto stain Jeremy Real DO Work Phone: Start: 08-10-2024 MR lumbar spine wo con ANP-BC Ro Windnagel Work Phone: Start: 08-10-2024 XR pre/post mri xray AN P-BC Ro Windnagel Work Phone: Start: 06-25-2024 MRI of cervical spin e without contrast ANP-BC Ro Windnagel Work Phone: Start: 04-17-2023 Follow-up visit Follow-up BELTRAN PEREZTERRIE Start: 07-22-2022 Microscopic observat ion [Identifier] in Cervix by Cyto stain Barb CLOUD Work Phone: Start: 07-01-2022 Microscopic observat ion [Identifier] in Cervix by Cyto stain Charlotte Link LABELLING MACHINE OPERATOR-GUITAR MAKER Work Phone: [facility] RUBI FULTON Hysterectomy CAREN FULTON Tonsillectomy CAREN FULTON Plan of Treatment Date Care Activity Detail Author Start: 08-21-2028 Screening for malignant neoplasm of cervix [facility] Start: 08-19-2027 Screening for malignant neoplasm of cervix Pap Smear [facility] Start: 07-22-2025 Screening for malignant neoplasm of cervix Pap Smear [facility] Start: 07-01-2025 Screening for malignant neoplasm of cervix Pap Smear [facility] Start: 02-15-2025 End: 02-15-2025 Patient encounter procedure 02/15/2025 9:20 AM EDT Office Visit [facility] [address] [place] [id number] Bruno Ryan MD [address] [place] [address] [facility] Start: 11-09-2024 End: 11-09-2024 Patient encounter procedure 11/09/2024 3:00 PM EST [facility] [address] [place] [address] Zac Tay, [address], [place] [address] [facility] Start: 10-05-2024 End: 10-05-2024 Patient encounter procedure 10/05/2024 8:10 AM EST Office Visit [facility] [address] [place] [phone] Jeremy Real DO [address] [address] [facility] Start: 09-17-2024 End: 09-17-2024 Patient encounter procedure 09/17/2024 10:30 AM EDT Office Visit [facility] [address] [place] [phone] Kathy Briggs MD [address] [place] [address] [facility] Start: 09-08-2024 End: 09-08-2024 Patient encounter procedure 09/08/2024 11:10 AM EDT Office Visit [facility] [address] [place] [phone] Jeremy Real, DO [address] [place] [address] [facility] Start: 07-25-2024 COVID-19 Vaccine ( season) COVID-19 Vaccine () [facility] Start: 07-25-2024 Influenza vaccination [facility] Start: 07-23-2023 Adult BMI Screening Adult BMI Screening [facility] Start: 2001 Depression Screening Depression Screening [facility] Start: 2001 Tobacco Screening Tobacco Screening [facility] Start: 2000 DTaP,Tdap and Td Vaccines (6 - Tdap) DTaP,Tdap and Td Vaccines (6 - Tdap) [facility] Immunizations Immunization Date Immunization Notes Care Provider Fa grant 08-25-2013 influenza virus vaccine, unspecified formulation Charlotte Link APRN-GUITAR MAKER Work Phone: [facility] Payers Date Payer Category Payer Self-pay 2022 [facility] er [id number] 2022 Unknown 1989 Unknown [id number] 2.16.840.1.989798.3.579. 2.593 1989 Unknown [id number] 2.16.840.1.032311.3.579. 2.593 1989 Unknown [id number] 2.16.840.1.041357.3.579. 2.593 1989 Unknown [id number] 2.16.840.1.296250.3.579. 2.727 1989 Unknown [id number] 2.16.840.1.950254.3.579. 2.727 1989 Unknown [id number] 2.16.840.1.327220.3.579. 2.727 1989 Unknown [id number] 2.16.840.1.109456.3.579. 2.1286 1989 Unknown [id number] 2.16.840.1.474479.3.579. 2.1259 1989 Unknown [id number] 2.16.840.1.746736.3.579. 2.1259 1989 Unknown [id number] 2.16.840.1.327117.3.579. 2.1259 1989 Unknown [id number] 2.16.840.1.864313.3.579. 2.1259 1989 Unknown [id number] 2.16.840.1.202121.3.579. 2.1259 1989 Unknown [id number] 2.16.840.1.688997.3.579. 2.1259 1989 Unknown [id number] 2.16.840.1.013066.3.579. 2.1259 1989 Unknown [id number] 2.16.840.1.457819.3.579. 2.1259 1989 Unknown [id number] 2.16.840.1.449276.3.579. 2.1259 1989 Unknown [id number] 2.16.840.1.904689.3.579. 2.1259 1959 Unknown [id number] 1959 Unknown [id number] Unknown [id number] 2.16.840.1.297261.3.579. 2.531 Unknown [id number] 2.16.840.1.346481.3.579. 2.531 Social History Date Type Detail Facility Tobacco smoking status [facility] Start: 04-28-2024 End: 07-01-2024 Sex Assigned At Female [facility] Start: 1990 Sex Assigned At Female [facility] Start: 07-01-2024 Tobacco smoking status MNIS Ex-smoker [facility] Start: 07-25-2007 End: 06-24-2023 [...] [facility] Start: 12-25-2016 Tobacco smoking status MNIS Smokes tobacco daily [facility] Childcare Unknown [facility] Start: 07-01-2022 Alcohol Comment rare [facility] Clinical Notes 04-10-2023 to 09-08-2024 Myra Mckenna LPN - 09/08/2024 11:10 AM EDTTelephone Encounter - Shana Mcginnisck - 08/26/2024 2:47 PM EDTTelephone Encounter - [...] Diagnosis Date ADHD (attention deficit hyperactivity disorder) ([facility]) Depression ([facility]) Head injury October 16 Infertility, female PTSD (post-traumatic stress disorder) ([facility]) HISTORY PAST MEDICAL HISTORY SOCIAL HISTORY Past Medical History: Diagnosis Date ADHD (attention deficit hyperactivity disorder) ([facility]) Anxiety Depression ([facility]) Head injury October 16 Infertility, female PTSD (post-traumatic stress disorder) ([facility]) Social History Tobacco Use Smoking status: Former [...] nursing note reviewed. Exam conducted with a umbrella finisher present. Vitals: Estimated body mass index is [...] by Myra Mckenna LPN on behalf of: Jeremy Addie, DO documented in this encounter [facility] 08-26-2024 Miscellaneous Notes Patient called she is looking for a new provider. She has been having ongoing double vision, she has seen neuro, eye , obgyn, ect. Nobody has an idea what is is going and is freaking out. I want to get her with either you or furlong he's booking out till about October I would feel she is more appropriate for a physician at this time. Would you be okay to accept? documented in this encounter [facility] 08-26-2024 Telephone encounter Note Patient called she is looking for a new provider. She has been having ongoing double vision, she has seen neuro, eye , obgyn, ect. Nobody has an idea what is is going and is freaking out. I want to get her with either you or furlong he's booking out till about October [facility] 08-26-2024 Telephone encounter Note I would feel she is more appropriate for a physician at this time. [facility] Work Phone: 08-26-2024 Telephone encounter Note Would you be okay to accept? [facility] 04-17-2023 Note Attestation signed by Pavel Ball [...] remains due to follow up with her port traffic manager. 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 Quinn Tripathi MD Rheumatology Fellow, PGY-[address] 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 [facility] Evaluation + Plan note No data available for this section [facility] Evaluation note No assessment inform ation available [facility] Work Phone: Evaluation note Diagnosis Irregular periods PCOS (polycystic ovarian syndrome) Polycystic ovaries Female infertility Female infertility of unspecified origin Mood disorder (CMS/HCC) Unspecified episodic mood disorder [facility] No data available for this section [facility] InstructionsNot on filedocumented in this encounter [facility] No data available for this section [facility] Summary Purpose Family History No Family History [...] and content) DATE CREATED AUTHOR 03/09/2021 [facility] DATE CREATED AUTHOR AUTHOR'S ORGANIZ ATION 03/09/2023 [facility] DATE CREATED AUTHOR AUTHOR'S ORGANIZ ATION 07/10/2023 [facility] DATE CREATED AUTHOR AUTHOR'S ORGANIZ ATION 08/16/2023 [facility] DATE CREATED AUTHOR AUTHOR'S ORGANIZ ATION 06/08/2024 [facility] DATE CREATED AUTHOR AUTHOR'S ORGANIZ ATION 08/16/[address] [facility] DATE CREATED AUTHOR AUTHOR'S ORGANIZ ATION 09/10/2024 [facility] dical Specialists EPIC Patient Care team informatio [...] August 10, 2024 End: August 10, 2024 Epic Kaleidoscope Analyst Relationship Specialty Start Date End Date Unallocated, Cong Chi MD [address] [place] [address] PCP - General Family Medicine 08/17/24 Epic Kaleidoscope Analyst Relationship Specialty Start Date End Date Unallocated, Cong Chi MD Pinky [address] [facility] [place] [address] PCP - General Family Medicine 08/17/24 Epic Kaleidoscope Analyst Relationship Specialty Start Date End Date No Pcp, [place] [address] PCP - General Family Medicine 05/31/24 Epic Kaleidoscope Analyst Relationship Specialty Start Date End Date Unallocated, Cong Chi MD [address] [place] [address] PCP - General Family Medicine 08/17/24 Goals [...] BE BASED ON THE PRIMARY CLINICAL RECORDS. [email or web address] [facility]. provides no warranty or guarantee of the accuracy or completeness of information in this document.
--- NOTE | 2024-09-13 08:43 | ED.GENADUL1 ---
HPI HPI - General Adult General Chief complaint: Extremity Problem, Nontraumatic Stated complaint: FACIAL NUMBNESS Time Seen by Provider: 09/13/24 08:27 Mode of arrival: walk-in History of Present Illness HPI narrative: Patient is a 33-year-old female who is presenting to the ER with acute on recent chronic facial nerve pain, numbness, tingling, paresthesias, burning sensation along the facial nerve on the right. Patient is having her third ER visit today also was seen in speaking to her neurologist as well. Patient has an ENT appointment on Friday. Patient has been having intermittent double vision/blurry vision going on for 6 months, she has seen and had thorough evaluation by neurologist and shuttlecock assembler for that as well. Patient states over the weekend she is having more burning sensation the right side of her face especially at nighttime when she is lying down. During the day symptoms are not as bad, but she is also active and busy and not thinking about it as much. Patient has no other strokelike signs or symptoms besides decreased sensation to the right side of her face intermittently. Patient has had 3-4 MRIs this past summer secondary to intermittent headaches and migraines. Patient also has had a CTA of her head and neck last week, this was discussed and a copy of her report was given to her as well. Patient has no fever or chills. No double vision or vision vision changes today, patient has no chest pain or shortness of breath. No abdominal pain nausea vomiting. No other acute complaints. All systems are negative except as noted/marked. All systems reviewed and otherwise negative. Nurses note and vital signs reviewed and patient is not hypoxic. General: The patient appears well and in no apparent distress. Patient is resting comfortably on cart. Patient is not toxic, lethargic, or listless Skin: Warm, dry, no pallor noted. There is no rash noted. No petechiae, purpura. Head: Normocephalic, atraumatic, mild slight decreased sensation to the right side of face compared to left, no facial droop, no loss of nasolabial fold, tongue midline, uvula midline. No facial droop. Patient is having more burning sensation to the right side of her face, also palpating just anterior to the right ear the facial nerve distributes, patient does have some irritation to that area as well, no abscess, redness, swelling, no signs of infection Eye: Normal conjunctiva, no drainage, EOMI. PERRL Ears, Nose, Mouth, and Throat: oral mucosa is moist. Nares patent. Mouth without vesicles. Cardiovascular: Regular Rate and Rhythm, no murmur, gallop, rub Respiratory: Patient is in no distress, no accessory muscle use, lungs are clear to auscultation, no wheezing, rales or rhonchi Back: non-tender, GI: no tenderness Musculoskeletal: Patient has full range of motion of all of the extremities, no motor, sensory, or focal neurological deficits Neurological: A&O x4, normal speech, NIH 0-1, minimal decrease sensation but more so burning sensation to the right side of her face, no other strokelike signs or symptoms. Psychiatric: Cooperative Related Data Home Medications ?Medication ?Instructions ?Recorded ?Confirmed metformin 500 mg tablet,extended 500 mg PO DAILY 09/06/24 09/13/24 release 24 hr venlafaxine 37.5 mg 37.5 mg PO DAILY 09/13/24 09/13/24 capsule,extended release 24 hr Previous Rx's ?Medication ?Instructions ?Recorded ibuprofen 800 mg tablet 800 mg PO Q8H PRN pain #20 tabs 09/29/23 baclofen 5 mg tablet 5 mg PO TID PRN muscle spasm #14 09/10/24 tabs cephalexin 500 mg capsule 500 mg PO Q8H 7 days #21 caps 09/10/24 hydroxyzine HCl 50 mg tablet 50 mg PO TID PRN itching #10 tabs 09/13/24 methocarbamol 500 mg tablet 500 mg PO Q8H PRN muscle pain #10 09/13/24 tabs methylprednisolone 4 mg tablets in 4 mg PO DAILY 6 days #21 ea 09/13/24 a dose pack (Medrol (Bhanu)) Allergies Allergy/AdvReac Type Severity Reaction Status Date / Time No Known Drug Allergies Allergy Verified 09/06/24 11:48 Opioid HPI Opioid Management Most Recent Opioid Data: Last Pain Scale 5 09/13/24 09:02 09/13/24 PFSH PFSH Social History Smoking status: Never smoker Little interest or pleasure in doing things: not at all Feeling down, depressed, or hopeless: not at all Exam Constitutional Vital Signs, click to edit/add: Last Vital Signs Temp 98.0 F 09/13/24 07:48 Pulse 78 09/13/24 07:48 Resp 18 09/13/24 07:48 BP 134/95 H 09/13/24 07:48 Pulse Ox 99 09/13/24 07:48 O2 Del Method Room Air 09/13/24 07:48 Course Vital Signs Vital signs: Vital Signs Temperature 98.0 F 09/13/24 07:48 Pulse Rate 78 09/13/24 07:48 Respiratory Rate 18 09/13/24 07:48 Blood Pressure 134/95 H 09/13/24 07:48 Pulse Oximetry 99 09/13/24 07:48 Oxygen Delivery Method Room Air 09/13/24 07:48 Temperature 98.0 F 09/13/24 07:48 Pulse Rate 78 09/13/24 07:48 Respiratory Rate 18 09/13/24 07:48 Blood Pressure 134/95 H 09/13/24 07:48 Pulse Oximetry 99 09/13/24 07:48 Oxygen Delivery Method Room Air 09/13/24 07:48 Medical Decision Making MDM Narrative Medical decision making narrative: Patient's last 2 ER visits have been reviewed. CTA of the head neck has been reviewed as well. Patient has a ENT appointment this Friday. Patient has neurologist that she has been seeing over the past several years with Dr. Solis and his PA. Patient has a PCP appointment with the PA in [facility] tomorrow. Patient has tizanidine at home leftover from old prescriptions, she is running out of her baclofen to have been prescribed. Patient is taking medications as prescribed. Patient will try her tizanidine at home to see if that would help with any type of muscle relaxation to the right side of her neck or face, also was given a prescription for Robaxin to use that if needed. Patient understands muscle laxer was not fix anything at this juncture. Patient was given a Medrol Dosepak. Patient was happy for this because people have been talking about this last several weeks but nobody prescribed to her. She is also given Vistaril to help her sleep at nighttime, understands that she cannot drive or work without during the day. Patient is to call her neurologist today. She has ENT appointment coming up. PA family practice appointment tomorrow. Patient will continue to follow-up with her specialist. Patient is very frustrated that her symptoms been ongoing for 2 to 3 weeks. Understanding and comfort was given at bedside trying to correlate with the patient and her frustrations. No acute strokelike signs or symptoms today Discharge Plan Discharge Chief Complaint: Extremity Problem, Nontraumatic Clinical Impression: Atypical face pain, Trigeminal anesthesia Patient Disposition: Home, Self-Care Time of Disposition Decision: 09:05 Condition: Fair Prescriptions / Home Meds: New hydroxyzine HCl 50 mg tablet 50 mg PO TID PRN (Reason: itching) Qty: 10 0RF methylprednisolone [Medrol (Bhanu)] 4 mg tablets,dose pack 4 mg PO DAILY 6 Days Qty: 21 0RF Rx Instructions: as directed methocarbamol 500 mg tablet 500 mg PO Q8H PRN (Reason: muscle pain) Qty: 10 0RF No Action cephalexin 500 mg capsule 500 mg PO Q8H 7 Days Qty: 21 0RF baclofen 5 mg tablet 5 mg PO TID PRN (Reason: muscle spasm) Qty: 14 0RF venlafaxine 37.5 mg capsule,extended release 24hr 37.5 mg PO DAILY ibuprofen 800 mg tablet 800 mg PO Q8H PRN (Reason: pain) Qty: 20 0RF metformin 500 mg tablet extended release 24 hr 500 mg PO DAILY Print Language: Congolese Instructions: Trigeminal Neuralgia (ED), Paresthesia (ED), Sympathetic Nerve Block (DC), Atypical Facial Pain (ED) Additional Instructions: Education was given on a nerve block just for educational purposes only. We will attempt Medrol Dosepak and also Vistaril to see if it could help with your symptoms. Call your neurologist for follow-up today as discussed and still see your ENT at your scheduled appointment. Referrals: Willam Walter NP [Primary Care Provider] - 1 week
[2024-09-13 09:15] VITALS: BP 132/88; PULSE 88; O2SAT 98
== END 2024-09-13 09:17 | disposition home or self-care (01) ==
PROVIDERS: Emergency Provider Emergency Medicine; PCP Nurse Practitioner Primary Care
DX: G50.1 Atypical facial pain (principal); G50.0 Trigeminal neuralgia
CPT/HCPCS: 99283

== ENCOUNTER 2024-09-25 09:06 | Outpatient (OUT) | payer BC, SELFPAY ==
--- OUTSIDE RECORDS SUMMARY | 2024-09-25 09:10 | XMS_ITS | CCD ---
Author Organization [facility] Care Team Providers Care [employer] Handler Name Role Phone SHAMMO, SAJAN Admitting Unavailable [...] SHAMMO, SAJAN Primary Care Unavailable CAREN FULTON E Attending Unavailable Windnagel, Ro Admitting Unavailable Windnagel, Ro Attending Unavailable Windnagel, Ro Referring Unavailable SHAMMO, SAJAN Primary Care Unavailable WINDNAGEL, RO C Referring Unavailable NO PCP, NO PCP Primary Care Unavailable Windnagel, ANP-BC Ro Attending Provider [phone] NON STAFF Primary Care Provider Unavailabl e Windnagel, RIGGING SUPERVISOR-C Ro C Attending Provider [phone] NON STAFF Primary Care Unavailable Windnagel, Ro C Referring Unavailable Windnagel, Ro Admitting Unavailable Windnagel, Ro Attending Unavailable Windnagel, Ro C Admitting Unavailable Windnagel, Ro C Attending Unavailable NON STAFF Primary Care Unavailable Unallocated MD, Noms Provider Primary Care Provi jim Unallocated , Noms Provider Primary Care Provi jim No Pcp, No Pcp Primary Care Provider UnavailJEREMY Avila Attending Unavailable PETITTI, BRUNO A Attending Unavailable WINDNAGEL, RO C Attending Unavailable WINDNAGEL, RO C Referring Unavailable WINDNAGEL, RO C Attending Unavailable WINDNAGEL, RO C Attending Unavailable WINDNAGEL, RO C Attending Unavailable WINDNAGEL, RO C Attending Unavailable BARB STALLINGS Attending Unavailable JEREMY REAL Attending Unavailable LAURIEGEL, RO C Attending Unavailable SUDHEER CHACON Attending Unavailable RAYMUNDO LEOS Referring Unavailable ANNA MARIE HADDAD Attending Unavailable Allergies Allergy Classification Reported Allergen(s) Allergy Type Date of Onset Reaction(s) Facility (13 sources) Dextromethorphan / guaiFENesin; Translations: [DEXTROMETHORPHAN- AIFENESIN] Drug Allergy 3 [facility] Medications Current Medications Medication Drug Class(es) Dates Sig (Normalized) Sig (Original) baclofen 5 mg oral tablet (10 sources) gamma-Aminobutyri c Acid-ergic Agonist Start: 09-14-2024 End: 12-13-2024 take 1 tablet by mouth in the morning, then take 1 tablet by mouth in the evening, then take 1 tablet by mouth at bedtime baclofen (Lioresal) 5 MG tablet Indications: Occipital neuralgia of right side Take 1 tablet (5 mg) by mouth in the morning and 1 tablet (5 mg) in the evening and 1 tablet (5 mg) before bedtime. 90 tablet 2 09/14/2024 12/13/2024 Active Start: 09-13-2024 End: 12-12-2024 take 0.5 tablet by mouth in the morning, then take 0.5 tablet by mouth in the evening, then take 0.5 tablet by mouth at bedtime baclofen (Lioresal) 10 MG tablet Indications: Occipital neuralgia of right side Take 0.5 tablets (5 mg) by mouth in the morning and 0.5 tablets (5 mg) in the evening and 0.5 tablets (5 mg) before bedtime. 45 tablet 2 09/13/2024 09/14/2024 Discontinued (Reorder) End: 09-13-2024 take 5 mg by mouth in the morning, then take 5 mg by mouth in the evening, then take 5 mg by mouth at bedtime baclofen (Lioresal) 10 MG tablet Take 5 mg by mouth in the morning and 5 mg in the evening and 5 mg before bedtime. 09/13/2024 Discontinued (Reorder) carBAMazepine 200 mg oral tablet (7 sources) Mood Stabilizer Start: 09-13-2024 End: 09-13-2025 take 1 tablet by mouth in the morning carBAMazepine (TEGretol) 200 MG tablet Indications: Trigeminal neuralgia of right side of face (CMS/HCC) Take 1 tablet (200 mg) by mouth in the morning and 1 tablet (200 mg) before bedtime. 60 tablet 2 09/13/2024 09/13/2025 Active cephalexin 500 mg oral capsule (7 sources) Cephalosporin Antibacterial End: 09-17-2024 cephalexin (Keflex) 500 MG capsule Take 500 mg by mouth in the morning and 500 mg at noon and 500 mg in the evening and 500 mg before bedtime. 09/17/2024 Discontinued (Therapy completed) ergocalciferol 1.25 mg oral capsule (4 sources) Provitamin D2 Compound Start: 05-31-2024 End: 05-31-2025 take 1 capsule by mouth every week ergocalciferol (Drisdol) 1.25 MG (51915 UT) capsule Indications: Vitamin D deficiency Take 1 capsule (1.25 mg) by mouth 1 (one) time per week 12 capsule 3 05/31/2024 09/08/2024 Discontinued hydrOXYzine hydrochloride 10 mg oral tablet (13 sources) Antihistamine Start: 07-21-2009 take 5 tablets by mouth three times daily as needed hydrOXYzine HCl (Atarax) 10 MG tablet Take 50 mg by mouth 3 (three) times a day as needed 07/21/2009 Active Start: 07-21-2009 take 1 tablet by demetrius th three times daily as needed hydrOXYzine HCl (Atarax) 10 MG tablet Take 10 mg by mouth 3 (three) times a day as needed. 07/21/2009 Active ibuprofen 800 mg oral tablet (10 sources) Nonsteroidal Anti-inflammatory Drug Start: 09-04-2024 ibuprofen 800 MG tablet Take 600 mg by mouth every 6 (six) hours if needed for moderate pain 09/04/2024 Active Start: 09-04-2024 take 1 tablet by demetrius th every six hours as needed for pain ibuprofen 800 MG tablet Take 800 mg by mouth every 6 (six) hours if needed for moderate pain 09/04/2024 Active levoFLOXacin 250 mg oral tablet (10 sources) Quinolone Antimicrobial Start: 09-04-2024 End: 09-17-2024 take 2 tablets by mouth once daily levoFLOXacin (Levaquin) 250 MG tablet Take 2 tablets by mouth Daily 09/04/2024 09/17/2024 Discontinued (Therapy completed) 24 hr metFORMIN hydrochloride 500 mg extended release oral tablet (12 sources) Biguanide Start: 08-19-2024 End: 08-19-2025 take 1 tablet by mouth every twenty-fou r hours in the morning metFORMIN XR (Glucophage-XR) 500 MG 24 hr tablet Indications: PCOS (polycystic ovarian syndrome) Take 1 tablet (500 mg) by mouth in the morning and 1 tablet (500 mg) before bedtime. Do not crush, chew, or split.. 30 tablet 11 08/19/2024 08/19/2025 Active methylPREDNISolone 4 mg oral tablet (2 sources) Corticosteroid Start: 09-13-2024 methylPREDNISolone (Medrol) 4 MG tablet 09/13/2024 Active 24 hr venlafaxine 37.5 mg extended release oral capsule (10 sources) Serotonin and Norepinephrine Reuptake Inhibitor Start: 09-08-2024 End: 09-08-2025 take 1 capsule by mouth once daily venlafaxine XR (Effexor XR) 37.5 MG 24 hr capsule Indications: Mood disorder (CMS/HCC) Take 1 capsule (37.5 mg) by mouth Daily Do not crush or chew. 30 capsule 11 09/08/2024 09/17/2024 Discontinued (Therapy completed) Problems Active Problems Problem Classification Problem Date Documented Date Episodic/Chronic Abdominal pain (2 sources) Right upper quadrant pain; Translations: [Right upper quadrant pain] Onset: 09-23-2024 Episodic Anxiety disorders (14 sources) Anxiety; Translations: [Posttraumatic stress disorder] Onset: 04-28-2024 07-03-2023 Chronic Attention-deficit, conduct, and disruptive behavior disorders (1 source) Attention deficit hyperactivity disorder 07-03-2023 Chronic Blindness and vision defects (17 sources) Diplopia; Translations: [Diplopia] Onset: 05-31-2024 08-17-2024 Episodic Conditions associated with dizziness or vertigo (12 sources) Dizziness; Translations: [Dizziness and giddiness] Onset: 08-17-2024 08-17-2024 Episodic Endometriosis (2 sources) Endometriosis (clinical); Translations: [Endometriosis, unspecified] Onset: 06-04-2016 07-03-2023 Chronic Female infertility (3 sources) Female infertility; Translations: [Female infertility, unspecified] 07-03-2023 Chronic Genitourinary symptoms and ill-defined conditions (1 source) Nocturnal enuresis; Translations: [NOCTURNAL ENURESIS] Onset: 03-09-2023 Chronic Headache; including migraine (2 sources) Pain in face; Translations: [Right facial pain] 09-17-2024 Episodic Malaise and fatigue (2 sources) Other fatigue; Translations: [Other fatigue] Onset: 09-23-2024 Episodic Menstrual disorders (2 sources) Irregular periods; Translations: [Irregular menstruation, unspecified] 09-08-2024 Chronic Mood disorders (4 sources) Depressive disorder; Translations: [Depressive disorder] Onset: 07-13-2019 07-03-2023 Chronic Other endocrine disorders (2 sources) Polycystic ovary syndrome; Translations: [Polycystic ovarian syndrome] 09-08-2024 Chronic Other nervous system disorders (1 source) Polyneuropathy, unspecified; Translations: [Polyneuropathy, unspecified] Onset: 05-31-2024 Chronic Other nervous system disorders (12 sources) Skin sensation disturbance; Translations: [Anesthesia of skin] Onset: 08-17-2024 08-17-2024 Episodic Other nervous system disorders (4 sources) Right trigeminal neuralgia; Translations: [Trigeminal neuralgia] 09-13-2024 Episodic Other nervous system disorders (2 sources) Trigeminal neuralgia; Translations: [Trigeminal neuralgia] Onset: 09-23-2024 Episodic Other non-traumatic joint disorders (4 sources) Pain in unspecified joint; Translations: [PAIN IN UNSPECIFIED JOINT] Onset: 03-04-2023 Episodic Other skin disorders (2 sources) Disorder of the skin and subcutaneous tissue, unspecified; Translations: [Disorder of the skin and subcutaneous tissue, unspecified] Onset: 09-23-2024 Episodic Residual codes; unclassified (1 source) Family history of other diseases of the musculoskeletal system and connective tissue; Translations: [FAM HX OTH DZ MUSK SYS AND CNCTV TISS] Onset: 03-09-2023 Episodic Spondylosis; intervertebral disc disorders; other back problems (20 sources) Pain in thoracic spine; Translations: [Occipital neuralgia] Onset: 02-13-2023 Episodic Unclassified (1 source) Low back pain, unspecified; Translations: [Low back pain, unspecified] Onset: 08-10-2024 Past or Other Problems Problem Classification Problem Date Documented Date Episodic/Chronic Immunizations and screening for infectious disease (2 sources) Encounter for screening for human immunodeficiency virus [HIV]; Translations: [Exposure to sexually transmissible disorder] Onset: 06-04-2016 02-10-2023 Episodic Other nervous system disorders (12 sources) Abnormal gait; Translations: [Unspecified abnormalities of gait and mobility] Onset: 04-28-2024 04-28-2024 Episodic Other screening for suspected conditions (not mental disorders or infectious disease) (2 sources) Encounter for screening for cardiovascular disorders; Translations: [Patient encounter status] Onset: 06-04-2016 06-04-2016 Episodic Results Test Name Value Interpretation Reference Range Facility IGP,APTIMA HPV,AGE GDLNon AGE GDLN ACOG TESTING Note . [facility] Comment on above: TESTS RESULT FLAG UN ITS REF RANGE LAB Clinician Provided Cytology Information Source.............Cervix;Endocervix No. of containers..01 ThinPrep Vial Age Algo ACOG Carmen... 29 FLAG LEGEND: L-Low Normal,H-High Normal,LL-Alert Low,HH-Alert High <-Panic Low,>-Panic High,A-Abnormal,AA-Critical Abnormal Performed at: 01 =[address] [place] [address] Kiesha Monroe MD, HPV APTIMA Negative Negative [facility] Comment on above: This nucleic acid am plification test detects fourteen high- risk HPV types (16,18,31,33,35,39,45,51,52,56,58,59,66,68) without differentiation. Performed at: = - [address] [id number] Still Operator Batch Or Continuous: Kiesha Monroe MD, Phone: [phone] Performed at: - [address], [place] [id number] Still Operator Batch Or Continuous: Kiesha Monroe MD, Phone: [phone] IGP, APTIMA HPV, RFX 16/18,45 Note . [facility] Comment on above: TESTS RESULT FLAG UN ITS REF RANGE LAB DIAGNOSIS: 02 NEGATIVE FOR INTRAEPITHELIAL LESION OR MALIGNANCY. Specimen adequacy: 02 Satisfactory for evaluation. Endocervical and/or squamous metaplastic cells (endocervical component) are present. Performed by: 02 Samantha Garcia, Optical Manufacturing Technician ([facility]) . 02 Note: Note 02 The Pap smear is a screening test designed to aid in the detection of premalignant and malignant conditions of the uterine cervix. It is not a diagnostic procedure and should not be used as the sole means of detecting cervical cancer. Both false-positive and false-negative reports do occur. Test Methodology: Note 02 The [facility](R) [employer] was unable to read this specimen. Therefore a manual review was performed. FLAG LEGEND: L-Low Normal,H-High Normal,LL-Alert Low,HH-Alert High <-Panic Low,>-Panic High,A-Abnormal,AA-Critical Abnormal Performed at: [address] [place] [address] Kiesha Monroe MD, HPV Genotype Reflex Note 02 Criteria not met, HPV Genotype not performed. Criteria not met, HPV Genotype not performed. BRUSH-SPATULA CERVIX ENDOCERVIX [facility] Healthcar e ALL CBC WITH AUTO DIFFon BASOPHILS ABSOLUTE AUTO 0.0 [facility] Basophils/100 WBC (Bld) 0.6 % 0.2 - 2.0 % [facility] Eosinophils/100 WBC (Bld) 3.2 % 0.9 - 7.0 % [facility] Erythrocyte distribution width (RBC) [Ratio] 12.8 % 11.0 - 15.0 % [facility] Hematocrit (Bld) [Volume fraction] 38.3 % 36.0 - 48.0 % [facility] QCoefficientcar e Hemoglobin (Bld) [Mass/Vol] 12.9 g/dL 12.0 - 16.0 g/dL [facility] IMMATURE GRANULOCYTES ABS AUTO 0.02 [facility] Immature granulocytes/100 WBC (Bld) 0.3 % 0.0 - 0.5 % [facility] LYMPHOCYTES ABSOLUTE AUTO 1.7 [facility] Lymphocytes/100 WBC (Bld) 24.0 % 20.5 - 60.0 % [facility] MCH (RBC) [Entitic mass] 29.4 pg 26.7 - 34.0 pg [facility] MCHC (RBC) [Mass/Vol] 33.7 g/dL 29.9 - 35.2 g/dL [facility] MCV (RBC) [Entitic vol] 87.2 fL 81.0 - 99.0 fL [facility] MONOCYTES ABSOLUTE AUTO 0.4 [facility] Monocytes/100 WBC (Bld) 6.1 % 1.7 - 12.0 % [facility] NEUTROPHILS ABSOLUTE AUTO 4.8 [facility] Neutrophils/100 WBC (Bld) 65.8 % 43.0 - 75.0 % [facility] Platelet mean volume (Bld) [Entitic vol] 11.1 fL 9.5 - 13.5 fL [facility] EO # 0.2 [facility] PLT 256 [facility] RBC 4.39 [facility] WBC 7.2 [facility] XR pre/post mri xrayon 08-10 XR pre/post mri xray [facility] [place] [address] [place] [address] MRI Report Signed Patient: Kierra Natarajan MR#: [id number] 35 : 1990 Acct:[id number] Age/Sex: 33 / F ADM Date: 08/10/24 Loc: Room: Type: [facility] Attending Dr: Ro MAGDALENO Copies to: RASTA Arzola Ordering Provider: RASTA Arzola Date of Service: 08/10/24 MR/MR lumbar spine wo con: R26.9, M54.50, N39.489, R20.0 ([id number]) XR/XR pre/post mri xray: R26.9, M54.50, N39.489, [...] Eben Morel M.D.08/10/2024 8:33 AM Dictation Location: [place] [address] Transcribed By: [facility] 08/10/24832 Dictated By: Eben Morel DO 08/10/2428 Signed By: 08/10/2433 Normal [facility] MR cervical spine wo conon 0 06-25-2024 MR cervical spine wo con [facility] [place] [address] [place] [address] MRI Report Signed Patient: Kierra Natarajan MR#: [id number] 35 : 1990 Acct:[id number] Age/Sex: 33 / F ADM Date: 06/25/24 Loc: Room: Type: [facility] Attending Dr: Ro Forte Adult RIGGING SUPERVISOR-BC Copies to: CAROLYN Arzola NP-C Ordering Provider: [...] Yung Jr., D.OAlexx06/25/2024 6:59 PM Dictation Location: [place] [address] Transcribed By: [facility] 06/25/241858 Dictated By: Tony Yung Jr, DO 06/25/241852 Signed By: 06/25/241858 Normal [facility] Folate [Mass/Vol]on 05-31-20 FOLIC ACID 15.0 ng/mL Normal >5.[address] [facility] Comment on above: Result Comment: NEW REFERENCE RANGE Performed By: #### 3 016-3, 2284-8, 2132-9, 57356-1 #### [facility] ([id number]) [address] [place] [address], [address] [place] [address] #### 75734-3 #### [facility] ([id number]) [address] [place] [address], [place] [address] Methylmalonate [Moles/Vol]on 05-31-2024 Methylmalonic Acid, QN, P 0.15 nmol/mL Normal <=0.[address] [facility] Comment on above: Result Comment: NOTE ADDITIONAL INFORMATION This test was developed and its performance characteristics determined by [facility] in a manner consistent with CLIA requirements. This test has not been cleared or approved by the U.S. Food and Drug Administration. Test Performed by: [address] [address] Still Operator Batch Or Continuous: Michele Lee Ph.D.; CLIA# [id number] Performed By: #### 3 016-3, 2283-8, 2132-07, 89281-3 #### [facility] ([id number]) [address], [address] [place] [address] #### 17885-8 #### [facility] ([id number]) [address] [place] [address] TSH Qnon 05-31-2024 TSH 2.81 uIU/mL Normal 0.49-4.[address] [facility] Comment on above: Performed By: #### 3 016-3, 2284-06, 2132-07, 93000-1 #### [facility] ([id number]) [address], [address] [place] [address] #### 46680-7 #### [facility] ([id number]) [address] [place] [address] VITAMIN B12on 05-31-2024 Cobalamin (Vitamin B12) [Mass/Vol] 297 pg/mL Normal 180-[address] [facility] Comment on above: Performed By: #### 3 016-3, 4-8, 9, 64978-6 #### [facility] ([id number]) [address], [address] [place] [address] #### 90075-6 #### [facility] ([id number]) [address] [place] [address] Vitamin D+Metabolites [Mass/ Vol]on 05-31-2024 VITAMIN D 25 HYD TOT 27.9 ng/mL Low 30-100 [facility] Comment on above: Result Comment: Vitamin D status 25 [place] Vitamin D Deficiency <20 ng/mL Insufficiency 20-29 ng/mL Sufficiency 30-100 ng/mL Toxicity >100 ng/mL NOTE: A pediatric reference range has not been established by the microphone boom operator of this kit. The [place] [employer] recommends a Vitamin D level of = or >20ng/mL in infants and children. Performed By: #### 3 016-3, 2284-8, 2132-9, 01645-9 #### [facility] ([id number]) [address] [facility], [address] [place] [address] #### 49779-8 #### [facility] ([id number]) [address] [place] [address], [place] [address] MR BRAIN W AND WO CONTRAST ( [...] BY: Abner Ramirez, DO Normal Not Available Neurology Forms- Texton 05-2 Neurology Forms- Text [id number] .00CD:127 Normal [facility] Consent for Treatmenton 03-25 Consent for Treatment [id number] .00CD:127 Normal [facility] Physician Orderon 04-08-2023 Physician Order [id number] .00CD:127 Normal [facility] WILMA EIA W/REFLEX 9 BIOMARKER Son 03-05-2023 WILMA Direct Negative Normal Negative [facility] Comment on above: Performed By: #### A NARF9 #### [facility] [address] [place] [address] Dr. Altagracia Allen C-REACTIVE PROTEINS (HS)on 0 03-05-2023 C-Reactive Protein, Cardiac 2.96 mg/L Normal 0.00-3.00 [facility] Comment on above: Result Comment: Rela tive Risk for Future Cardiovascular Event Low <1.00 Average 1.00 - 3.00 High >3.00 Performed By: #### C RPHS #### [facility] [address] [place] [address] Dr. Altagracia Allen CYCLIC CITRULLINATED PEPTIDE AB (CCP)on 03-05-2023 CCP Antibodies IgG/IgA 4 units Normal 0-19 [facility] Comment on above: Result Comment: Nega tive <20 Weak positive 20 - 39 Moderate positive 40 - 59 Strong positive >59 Performed By: #### C CPAB #### [facility] [address] [place] [address] Dr. Altagracia Allen HIV 1 AND 2 WITH REFLEXon HIV Screen 4th Generation wRfx Non-Reactive Normal Non Reactive [facility] Comment on above: Result Comment: HIV Negative HIV-1/HIV-2 antibodies and HIV-1 p24 antigen were NOT detected. There is no laboratory evidence of HIV infection. Performed By: #### H IV12 #### [facility] [address] [place] [address] Dr. Altagracia Allen MRI TSPINE WO CONon 03-05-20 23 MRI TSPINE WO CON EXAMINATION: MRI TSPINE WO CON HISTORY: Pain in thoracic spine [...] ERMELINDA PAIGE Date: 2023-03-05 14:38 Normal [facility] RHEUMATOID FACTORon 03-05-20 23 RA Latex Turbid. <10.0 Normal <14.0 [facility] Comment on above: Performed By: #### R F ####[facility] [address] [place], [place] [address]Dr. Altagracia Allen SED RATE [facility] 2022 SED RATE 14 mm/hr Normal <=20 [facility] Comment on above: Performed By: #### S EDR #### [facility] [address] [place] [address] [address] Altagracia Allen HEMOGRAM AND PLATELon 2022 Hematocrit (Bld) [Volume fraction] 40.0 % Normal 36.0-48.0 [facility] Comment on above: Performed By: #### H H ####[facility] [address] [place] [address]Dr. Altagracia Allen Hemoglobin (Bld) [Mass/Vol] 13.5 g/dL Normal 12.0-16.0 [facility] Comment on above: Performed By: #### H H ####[facility] [address] [place] [address]Dr. Altagracia Allen MCH (RBC) [Entitic mass] 28.5 pg Normal 26.7-34.0 [facility] Comment on above: Performed By: #### H H ####[facility] [address] [place] [address]Dr. Altagracia Allen MCHC (RBC) [Mass/Vol] 33.8 g/dL Normal 29.9-35.2 [facility] Comment on above: Performed By: #### H H ####[facility] [address] [place] [address]Dr. Altagracia Allen MCV (RBC) [Entitic vol] 84.6 fL Normal 81.0-99.0 [facility] Comment on above: Performed By: #### H H ####[facility] [address] [place] [address]DrAlexx Allen PLT 271 103/ul Normal 150-450 [facility] Comment on above: Performed By: #### H H ####[facility] [address] [place] [address]Dr. Altagracia Allen RBC 4.73 106/ul Normal 4.20-5.40 [facility] Comment on above: Performed By: #### H H ####[facility] [address] [place] [address]Dr. Altagracia Allen WBC 8.0 103/ul Normal 4.0-11.0 [facility] Comment on above: Performed By: #### H H ####[facility] [address] [place] [address]Dr. Altagracia Allen LIPID PROFILEon 02-25-2023 CHOL-HDL RATIO NORM SEE BELOW Normal [facility] Comment on above: Result Comment: 3.3 - 4.4 LOW RISK 4.4 - 7.1 AVERAGE RISK 7.1 - 11.0 MODERATE RISK >11.0 HIGH RISK Performed By: #### L IPID, TSHRFT4, CMP #### [facility] [address] [place] [address] [address] Altagracia Allen Cholesterol [Mass/Vol] 175 mg/dL Normal <=200 [facility] Comment on above: Performed By: #### L IPID, TSHRFT4, CMP #### [facility] [address] [place] [address] [address] Altagracia Allen Cholesterol in HDL [Mass/Vol] 29 mg/dL Critically low 40-60 [facility] Comment on above: Performed By: #### L IPID, TSHRFT4, CMP #### [facility] [address] [place] [address] [address] Altagracia Allen Cholesterol in LDL [Mass/Vol] 127.2 mg/dL Normal [facility] Comment on above: Performed By: #### L IPID, TSHRFT4, CMP #### [facility] [address] [place] [address] [address] Altagracia Allen Cholesterol.total/Ch olesterol in HDL [Mass ratio] 6.0 {ratio} Normal [facility] Comment on above: Performed By: #### L IPID, TSHRFT4, CMP #### [facility] [address] [place] [address] [address] Altagracia Allen HDL NORMAL > or = 60 mg/dl - LO W CARDIOVASCULAR RISK <40 mg/dl - HIGH CARDIOVASCULAR RISK Normal [facility] Comment on above: Performed By: #### L IPID, TSHRFT4, CMP #### [facility] [address] [place] [address] [address] Altagracia Allen LDL CALC NORMAL SEE BELOW Normal [facility] Comment on above: Result Comment: <100 mg/dl OPTIMAL 100 - 129 mg/dl NEAR OR ABOVE OPTIMAL 130 - 159 mg/dl BORDERLINE HIGH 160 - 189 mg/dl HIGH >190 mg/dl VERY HIGH Performed By: #### L IPID, [id number], CMP #### [facility] [address] [address] [address] Altagracia Allen Triglyceride [Mass/Vol] 94 mg/dL Normal <=150 [facility] Comment on above: Performed By: #### L IPID, [id number], CMP #### [facility] [address] [address] [address] Altagracia Allen VLDL CALC 18.8 mg/dL Normal [facility] Comment on above: Performed By: #### L IPID, [id number], CMP #### [facility] [address] [address] [address] Altagracia Allen PROF 14(COMP METB)on 023 Albumin [Mass/Vol] 3.6 g/dL Normal 3.4-5.0 [place] Comment on above: Performed By: #### L IPID, [id number], CMP #### [facility] [address] [place] [address] Dr. Altagracia Allen Albumin/Globulin [Mass ratio] 1.1 {ratio} Normal [facility] Comment on above: Performed By: #### L IPID, [id number], CMP #### [facility] [address] [place] [address] Dr. Altagracia Allen ALP [Catalytic activity/Vol] 72 U/L Normal 46-116 [facility] Comment on above: Performed By: #### L IPID [id number], CMP #### [facility] [address] [place] [address] Dr. Altagracia Allen ALT [Catalytic activity/Vol] 27 U/L Normal 14-59 [facility] Comment on above: Performed By: #### L IPID, [id number], CMP #### [facility] [address] [place] [address] Dr. Altagracia Allen Anion gap [Moles/Vol] 13.8 mmol/L Normal [facility] Comment on above: Performed By: #### L IPID, [id number], CMP #### [facility] [address] [place] [address] Dr. Altagracia Allen AST [Catalytic activity/Vol] 17 U/L Normal 15-37 [facility] Comment on above: Performed By: #### L IPID, [id number], CMP #### [facility] [address] [place] [address] Dr. Altagracia Allen Bilirubin [Mass/Vol] 0.2 mg/dL Normal 0.2-1.0 [facility] Comment on above: Performed By: #### L IPID, [id number], CMP #### [facility] [address] [place] [address] Dr. Altagracia Allen Calcium [Mass/Vol] 8.6 mg/dL Normal 8.5-10.1 The [facility] Comment on above: Performed By: #### L IPID, [id number], CMP #### [facility] [address] [address] [address] Altagracia Allen Chloride [Moles/Vol] 106 mmol/L Normal 98-107 [facility] Comment on above: Performed By: #### L IPID, [id number], CMP #### [facility] [address] [address] [address] Altagracia Allen CO2 [Moles/Vol] 23.7 mmol/L Normal 21.0-32.0 [facility] Comment on above: Performed By: #### L IPID, [id number], CMP #### [facility] [address] [place] [address] Dr. Altagracia Allen Creatinine [Mass/Vol] 0.76 mg/dL Normal 0.55-1.02 [facility] Comment on above: Performed By: #### L IPID, [id number], CMP #### [facility] [address] [place] [address] Dr. Altagracia Allen EGFR-AF JORDANIAN >60 Normal >=60 [facility] Comment on above: Performed By: #### L IPID, [id number], CMP #### [facility] [address] [place] [address] Dr. Altagracia Allen EGFR-NON AF JORDANIAN >60 Normal >=60 [facility] Comment on above: Performed By: #### L IPID, [id number], CMP #### [facility] [address] [address] [address] Altagracia Allen Globulin (S) [Mass/Vol] 3.4 g/dL Normal [facility] Comment on above: Performed By: #### L IPID, [id number], CMP #### [facility] [address] [place] [address] Dr. Altagracia Allen Glucose [Mass/Vol] 92 mg/dL Normal 74-106 [place] Comment on above: Performed By: #### L IPID, [id number], CMP #### [facility] [address] [place] [address] Dr. Altagracia Allen Potassium [Moles/Vol] 3.5 mmol/L Normal 3.5-5.1 [facility] Comment on above: Performed By: #### L IPID, [id number], CMP #### [facility] [address] [place] [address] Dr. Altagracia Allen Protein [Mass/Vol] 7.0 g/dL Normal 6.4-8.2 The [facility] Comment on above: Performed By: #### L IPID, [id number], CMP #### [facility] [address] [place] [address] Dr. Altagracia Allen Sodium [Moles/Vol] 140 mmol/L Normal 136-145 [facility] Comment on above: Performed By: #### L IPID, [id number], CMP #### [facility] [address] [place] [address] Dr. Altagracia Allen Urea nitrogen [Mass/Vol] 13.0 mg/dL Normal 7.0-18.0 [facility] Comment on above: Performed By: #### L IPID, [id number], CMP #### [facility] [address] [place] [address] Dr. Altagracia Allen Urea nitrogen/Creatinine [Mass ratio] 17.1 mg/mg Normal [facility] Comment on above: Performed By: #### L IPID, [id number], CMP #### [facility] [address] [place] [address] Dr. Altagracia Allen TSH W/ REFLEX TO FT4on 02-25 TSH 2.830 uIU/mL Normal 0.358-3.740 [facility] Comment on above: Performed By: #### L IPID, [id number], CMP #### [facility] [address] [place] [address] Dr. Altagracia Allen XR TSPINE 3 VIEWSon 02-15-20 23 XR TSPINE 3 VIEWS EXAMINATION: XR TSPINE 3 VIEWS HISTORY: Pain in thoracic spine [...] ERMELINDA PAIGE Date: 2023-02-14 07:59 Normal [facility] CBC W/DIFFon 01-23-2021 ABS BASOPHILS 0.1 10*3/uL Normal 0.0-0.2 [facility] Comment on above: Performed By: #### 5 0103 #### [facility] [address] ABS IMM GRANS 0.0 10*3/uL Normal 0.0-0.2 [facility] Comment on above: Performed By: #### 5 0103 #### [facility] [address] ABS NEUTROPHILS 4.9 10*3/uL Normal 1.6-7.6 The [facility] Comment on above: Performed By: #### 5 0103 #### [facility] [address] Basophils/100 WBC (Bld) 0.7 % Normal 0.0-1.0 The [facility] Comment on above: Performed By: #### 5 0103 #### [facility] [address] [place] [address], [facility] Eosinophils (Bld) [#/Vol] 0.3 10*3/uL Normal 0.0-0.5 [facility] Comment on above: Performed By: #### 5 0103 #### [facility] [address] [place] [address], [facility] Eosinophils/100 WBC (Bld) 3.6 % Normal 0.0-6.0 [facility] Comment on above: Performed By: #### 5 0103 #### [facility] [address] Erythrocyte distribution width (RBC) [Ratio] 13.2 % Normal 11.5-15.0 [facility] Comment on above: Performed By: #### 5 0103 #### [facility] [address] [facility] [address] Hematocrit (Bld) [Volume fraction] 44.2 % Normal 36.0-45.0 [facility] Comment on above: Performed By: #### 0103 #### [facility] [address] Hemoglobin (Bld) [Mass/Vol] 14.4 g/dL Normal 12.0-15.0 [facility] Comment on above: Performed By: #### 5 3 #### [facility] [address] IMMATURE GRANS 0.4 % Normal 0.0-1.0 The [facility] Comment on above: Performed By: #### 3 #### [facility] [address] Lymphocytes (Bld) [#/Vol] 1.8 10*3/uL Normal 1.2-4.0 [facility] Comment on above: Performed By: #### 5 3 #### [facility] [address] [place] [address], [facility] Lymphocytes/100 WBC (Bld) 23.3 % Normal 20.0-45.0 [facility] Comment on above: Performed By: #### 5 0103 #### [facility] [address] [place] [address], [facility] MCH (RBC) [Entitic mass] 29.1 pg Normal 27.0-33.0 [facility] Comment on above: Performed By: #### 5 3 #### [facility] [address] MCHC (RBC) [Mass/Vol] 32.6 g/dL Normal 32.0-35.0 [facility] Comment on above: Performed By: #### 5 0103 #### [facility] [address] [place] [address], [facility] MCV (RBC) [Entitic vol] 89.3 fL Normal 82.0-98.0 [facility] Comment on above: Performed By: #### 5 0103 #### [facility] [address] [facility] [place] [address], [facility] Monocytes (Bld) [#/Vol] 0.6 10*3/uL Normal 0.1-1.0 [facility] Comment on above: Performed By: #### 5 0103 #### [facility] [address] [facility] [place] [address], [facility] MONOS 7.6 % Normal 5.0-12.0 [facility] Comment on above: Performed By: #### 5 0103 #### [facility] [address] [place] [address], [facility] Neutrophils/100 WBC (Bld) 64.4 % Normal 40.0-72.0 [facility] Comment on above: Performed By: #### 5 0103 #### [facility] [address] [facility] [place] [address], [facility] Nucleated RBC/100 WBC (Bld) [Ratio] 0 % Normal 0-0 [facility] Comment on above: Performed By: #### 5 0103 #### [facility] [address] [facility] [place] [address], [facility] PLAT CNT 264 10*3/uL Normal 150-400 The [facility] Comment on above: Performed By: #### 5 0103 #### [facility] [address] [place] [address], [facility] RBC (Bld) [#/Vol] 4.95 10*6/uL Normal 3.80-5.00 The [facility] Comment on above: Performed By: #### 5 0103 #### [facility] [address] WBC (Bld) [#/Vol] 7.59 10*3/uL Normal 4.00-10.60 [facility] Comment on above: Performed By: #### 5 0103 #### [facility] [address] [place] [address], [facility] COMP METABOLIC PANELon 01-23 Albumin [Mass/Vol] 4.4 g/dL Normal 3.5-5.7 The [facility] Comment on above: Performed By: #### 4 6413, [id number], 36536 #### [facility] [address] ALKALINE PHOSPH 64 IU/L Normal 34-104 The [facility] Comment on above: Performed By: #### 4 6413, 14161, 89346 #### [facility] [address] [facility] [place] [address], [facility] ALT [Catalytic activity/Vol] 13 U/L Normal 7-52 [facility] Comment on above: Performed By: #### 4 6413, 79536, 80539 #### [facility] [address] [place] [address], [facility] AST [Catalytic activity/Vol] 14 U/L Normal 13-39 [facility] Comment on above: Performed By: #### 4 6413, 20482, 07491 #### [facility] [address] [place] [address], [facility] Bilirubin [Mass/Vol] 0.4 mg/dL Normal 0.3-1.0 [facility] Comment on above: Performed By: #### 4 6413, 85011, 53061 #### [facility] [address] [place] [address], [place] Calcium [Mass/Vol] 9.2 mg/dL Normal 8.6-10.3 [facility] Comment on above: Performed By: #### 4 6413, 30476, 79678 #### [facility] [address] [place] [address], [place] Chloride [Moles/Vol] 105 mmol/L Normal 98-107 [facility] Comment on above: Performed By: #### 4 6413, 08534, 13000 #### [facility] [address] [place] [address], [place] CO2 [Moles/Vol] 28 mmol/L Normal 21-31 [facility] Comment on above: Performed By: #### 4 6413, 56187, 75465 #### [facility] [address] [place] [address], [place] Creatinine [Mass/Vol] 0.90 mg/dL Normal 0.60-1.20 [facility] Comment on above: Performed By: #### 4 6413, 50545, 64708 #### [facility] [address] [place] [address], [place] GFR/1.73 sq M predicted among blacks MDRD (S/P/Bld) [Vol rate/Area] mL/min/{1.73_m2} Normal >60 [facility] Comment on above: Performed By: #### 4 6413, 89720, 31204 #### [facility] [address] [place] [address], [place] GFR/1.73 sq M predicted among non-blacks MDRD (S/P/Bld) [Vol rate/Area] mL/min/{1.73_m2} Normal >60 [facility] Comment on above: Performed By: #### 4 6413, 05596, 02704 #### [facility] [address] [place] [address], [place] Glucose [Mass/Vol] 86 mg/dL Normal 70-100 The [facility] Comment on above: Performed By: #### 4 6413, 91389, 92314 #### [facility] [address] [place] [address], [place] Potassium [Moles/Vol] 3.9 mmol/L Normal 3.5-5.1 [facility] Comment on above: Performed By: #### 4 6413, 17246, 25454 #### [facility] [address] [place] [address], [place] Protein [Mass/Vol] 7.1 g/dL Normal 6.0-8.3 [facility] Comment on above: Performed By: #### 4 6413, 29333, 63615 #### [facility] [address] [place] [address], [place] Sodium [Moles/Vol] 138 mmol/L Normal 136-145 [facility] Comment on above: Performed By: #### 4 6413, 85272, 51582 #### [facility] [address] [place] [id number], [facility] Urea nitrogen [Mass/Vol] 11 mg/dL Normal 7-25 [facility] Comment on above: Performed By: #### 4 6413, 51923, 29030 #### [facility] [address] [place] [address], [place] LIPID PROFILEon 01-23-2021 Cholesterol [Mass/Vol] 162 mg/dL Normal 120-200 [facility] Comment on above: Result Comment: CHOL ESTEROL REFERENCE RANGE: 20 YEARS AND OLDER CARDIOVASCULAR RISK Less than 200 mg/dl Low Risk 200 to 239 mg/dl Borderline Risk 240 mg/dl and greater High Risk Performed By: #### 4 6413, 62323, 13690 #### [facility] [address] [place] [address], [place] Cholesterol in HDL [Mass/Vol] 38 mg/dL Normal 23-92 [facility] Comment on above: Result Comment: Slig ht variation in normal range could be due to gender and/or age. HDL CHOLESTEROL REFERENCE RANGE: 20 years and older Cardiovascular Risk > or =60 mg/dL Desirable 40 TO 59 mg/dL Low Risk <40 mg/dL High Risk Performed By: #### 4 6413, 56726, 77301 #### [facility] [address] [place] [address], [place] Cholesterol in LDL [Mass/Vol] 111 mg/dL Normal 0-130 [facility] Comment on above: Result Comment: LDL IS A CALCULATION LDL IS ONLY VALID IF THE TRIG IS LESS THAN 400. Performed By: #### 4 6413, 09689, 22918 #### [facility] [address] [place] [address], [facility] Cholesterol.total/Ch olesterol in HDL [Mass ratio] 4.3 {ratio} Normal 0.0-4.5 [facility] Comment on above: Performed By: #### 4 6413, 12479, 24249 #### [facility] [address] [place] [address], [place] NON-HDL CHOLESTEROL 124 mg/dL Normal [facility] Comment on above: Performed By: #### 4 6413, 36944, 24265 #### [facility] [address] [place] [address], [place] Triglyceride [Mass/Vol] 66 mg/dL Normal 40-149 [facility] Comment on above: Result Comment: TRIG LYCERIDE REFERENCE RANGE: 20 YEARS AND OLDER CARDIOVASCULAR RISK LESS THAN 150 mg/dl LOW RISK 150 TO 199 mg/dl BORDERLINE RISK 200 mg/dl AND GREATER HIGH RISK Performed By: #### 4 6413, 50873, 62293 #### [facility] [address] [place] [address], [place] VLDL CHOL 13 mg/dL Normal 0-40 [facility] Comment on above: Performed By: #### 4 6413, 12336, 76002 #### [facility] [address] [place] [address], [facility] TSH3 WITH REFLEX FT4on 01-23 TSH 3RD GENERATION 1.73 uIU/mL Normal 0.34-5.60 [facility] Comment on above: Performed By: #### 4 6413, 93929, 22397 #### [facility] [address] Vital Signs Date Time Vital Sign Value Performing Clinician Faci lity 09-17-2024 09:49-0400 Body height 175.3 cm Sudheer Chacon MD Work Phone: [facility] 09-17-2024 09:49-0400 Body mass index (BMI) [Ratio] 35.15 kg/m2 Sudheer Chacon MD Work Phone: [facility] 09-17-2024 09:49-0400 Body weight 107.96 kg Sudheer Chacon MD Work Phone: [facility] 09-17-2024 09:49-0400 Diastolic blood pressure 88 mm[Hg] Sudheer Chacon MD Work Phone: [facility] 09-17-2024 09:49-0400 Systolic blood pressure 137 mm[Hg] Sudheer Chacon MD Work Phone: [facility] 09-13-2024 13:39-0400 Body height 172.7 cm Ro Forte RIGGING SUPERVISOR Work Phone: [facility] 09-13-2024 13:39-0400 Body mass index (BMI) [Ratio] 35.81 kg/m2 Ro Forte RIGGING SUPERVISOR Work Phone: [facility] 09-13-2024 13:39-0400 Body weight 106.82 kg Ro Forte RIGGING SUPERVISOR Work Phone: [facility] 09-13-2024 13:39-0400 Diastolic blood pressure 78 mm[Hg] Ro Forte RIGGING SUPERVISOR Work Phone: [facility] 09-13-2024 13:39-0400 Heart rate 78 /min Ro Guzmanmaged RIGGING SUPERVISOR Work Phone: [facility] 09-13-2024 13:39-0400 Systolic blood pressure 133 mm[Hg] Ro Forte RIGGING SUPERVISOR Work Phone: [facility] 09-08-2024 10:53-0400 Body mass index (BMI) [Ratio] 36.31 kg/m2 Jeremy Addie DO Work Phone: [facility] 09-08-2024 10:53-0400 Body weight 108.32 kg Jeremy Addie DO Work Phone: [facility] 09-08-2024 10:53-0400 Diastolic blood pressure 70 mm[Hg] Jeremy Addie DO Work Phone: [facility] 09-08-2024 10:53-0400 Systolic blood pressure 120 mm[Hg] Jeremy Addie DO Work Phone: [facility] Healthcare Encounters Encounter Date Encounter Type Care Provider Facility Start: 09-23-2024 End: 09-23-2024 ambulatory [facility] Start: 09-17-2024 End: 09-17-2024 Bamboo flowsheet [facility]acon [facility] Start: 09-17-2024 End: 09-17-2024 [facility]acon [facility] Start: 09-17-2024 End: 09-17-2024 Office outpatient new 45 minutes Sudheer Chacon MD [facility] Comment on above: Right facial pain (P rimary Dx) Start: 09-17-2024 End: 09-17-2024 ambulatory SUDHEER CHACON Not Available Start: 09-15-2024 End: 09-15-2024 Telephone encounter Emanuel Denney MA [facility] Start: 09-14-2024 End: 09-14-2024 Telephone encounter Toñito Alvarez MA [facility] Start: 09-13-2024 End: 09-13-2024 Bamboo flowsheet Rojeanna Guzmanmaged RIGGING SUPERVISOR Work Phone: [facility] Start: 09-13-2024 End: 09-13-2024 Bamboo flowsheet Ro Ladan Johnsonnamaged RIGGING SUPERVISOR Work Phone: [facility] Start: 09-13-2024 End: 09-13-2024 Office outpatient visit 40 minutes Ro Ladan Guzmanmaged RIGGING SUPERVISOR Work Phone: [facility] Comment on above: Occipital neuralgia of right side (Primary Dx); Trigeminal neuralgia of right side of face (CMS/HCC); Diplopia Start: 09-13-2024 End: 09-13-2024 ambulatory RO Ladan CARLOSALLYN Not Available Start: 09-08-2024 End: 09-08-2024 Office outpatient visit 15 minutes Jeremy Addie DO Work Phone: [facility] Comment on above: Irregular periods; PCOS (polycystic ovarian syndrome); Female infertility; Mood disorder (CMS/HCC) Start: 09-08-2024 End: 09-08-2024 ambulatory JEREMY ADDIE Not Available Start: 08-26-2024 End: 08-30-2024 Telephone encounter Charlotte AUSTIN Work Phone: [facility] [...] Clinisync Result Encounter Barb CLOUD Work Phone: [facility] External Department Unsolicited Start: 08-19-2024 End: 08-19-2024 ambulatory BARB STALLINGS Not Available Start: 08-17-2024 End: 08-17-2024 ambulatory RO C WINDNAGEL Not Available Start: 08-10-2024 End: 08-10-2024 Patient encounter procedure ANP-BC Ro Windnagel Work Phone: [facility] [place] Work Phone: Start: 08-10-2024 End: 08-10-2024 ambulatory NON STAFF [facility] Work Phone: Start: 07-01-2024 End: 07-01-2024 ambulatory RO C WINDNAGEL Not Available Start: 06-25-2024 End: 06-25-2024 Patient encounter procedure ANP-BC Ro Windnagel Work Phone: [facility] [place] Work Phone: Start: 06-25-2024 End: 06-25-2024 ambulatory NON STAFF [facility] Work Phone: Start: 06-08-2024 End: 06-08-2024 ambulatory RO C WINDNAGEL Not Available Start: 06-01-2024 End: 06-01-2024 ambulatory RO C WINDNAGEL Not Available Start: 05-31-2024 End: 05-31-2024 ambulatory RO C WINDNAGEL [facility] Start: 05-13-2024 End: 05-13-2024 ambulatory RO C WINDNAGEL Not Available Start: 04-29-2024 End: 04-29-2024 ambulatory RO C WINDNAGEL Not Available Start: 02-17-2024 End: 02-17-2024 ambulatory BRUNO A PETITTI Not Available Start: 02-03-2024 End: 02-03-2024 ambulatory JEREMY QUILESO Not Available Start: 07-08-2023 End: 07-09-2023 ambulatory Ro Windnagel Facility:[facility] Start: 07-08-2023 End: 07-08-2023 Patient encounter procedure CARENYOUNG FULTON [facility] Start: 04-28-2023 ambulatory SAJAN SHAMMO Facility:[facility] Start: 04-15-2023 End: 04-16-2023 ambulatory Ro Windnagel [place] [place] Start: 03-04-2023 End: 03-05-2023 ambulatory SAJAN SHAMMO Facility: Start: 03-01-2023 Encounter for genera l adult medical [facility] Start: 02-25-2023 End: 02-26-2023 ambulatory SAJAN SHAMMO Facility: Start: 02-25-2023 End: 02-26-2023 Encounter for general adult medical examination without abnormal findings SAJAN SHAMMO Facility: Start: 02-13-2023 End: 02-14-2023 ambulatory SAJAN SHAMMO [...] contrast ANP-BC Ro Windnagel Work Phone: Start: 07-22-2022 Microscopic observat ion [Identifier] in Cervix by Cyto stain Barb CLOUD Work Phone: Start: 07-01-2022 Microscopic observat ion [Identifier] in Cervix by Cyto stain Charlotte AUSTIN Work Phone: [facility] curett[facility] RUBI FULTON Hysterectomy CAREN FULTON Tonsillectomy CAREN FULTON Plan of Treatment Date Care Activity Detail Author Start: 08-21-2028 Screening for malign ant neoplasm of cervix [facility] Start: 08-19-2027 Screening for malign ant neoplasm of cervix Pap Smear [facility] Start: 07-22-2025 Screening for malign ant neoplasm of cervix Pap Smear [facility] Start: 07-01-2025 Screening for malign ant neoplasm of cervix Pap Smear [facility] Start: 02-15-2025 End: 02-15-2025 Patient encounter procedure 02/15/2025 9:20 AM EDT Office Visit [facility] [address] [place] [address] Bruno Frost MD [address] [place] [address] [facility] Start: 11-09-2024 End: 11-09-2024 Patient encounter procedure 11/09/2024 3:00 PM EST Office Visit [facility] [address] [place] [id number] Zac Tay, DO [address], [facility] [place] [address] [facility] - Family Medicine Start: 10-19-2024 End: 10-19-2024 Patient encounter procedure 10/19/2024 10:20 AM EST Office Visit [facility] [address] [place] [address] Francine Mallory PA [address] [place] [address] [facility] Start: 10-05-2024 End: 10-05-2024 Patient encounter procedure 10/05/2024 8:10 AM EST Office Visit [facility] [address] [place] [phone] Jeremy Real, DO [address] [place] [address] [facility] Start: 09-17-2024 End: 09-17-2024 Patient encounter procedure [facility] Comment on above: Arrived Start: 09-13-2024 End: 09-13-2024 Patient encounter procedure 09/13/2024 1:40 PM EDT Office Visit [facility] [address] [facility] [address] [place] [phone] Ro Forte, RIGGING SUPERVISOR [address] [place] [address] Arrived [facility] Comment on above: Arrived Start: 09-08-2024 End: 09-08-2024 Patient encounter procedure 09/08/2024 11:10 AM EDT Office Visit [facility] [address] [place] [phone] Jeremy Real, DO [address] [place] [address] [facility] Start: 07-25-2024 COVID-19 Vaccine ( season) COVID-19 Vaccine ( season) [facility] Start: 07-25-2024 Influenza vaccination [facility] Start: 07-23-2023 Adult BMI Screening Adult BMI Screen ing [facility] Start: 2001 Depression Screening Depression Scre ening [facility] Start: 2001 Tobacco Screening Tobacco Screening [facility] Start: 2000 DTaP,Tdap and Td Vaccines (6 - Tdap) DTaP,Tdap and Td Vaccines (6 - Tdap) [facility] MR Brain WO and W contrast IV MR brain w and wo contrast routine Imaging High Priority Trigeminal neuralgia of right side of face (CMS/HCC) Ordered: 09/13/2024 [facility] Work Phone: Comment on above: Ordered: 09/13/2024 Immunizations Immunization Date Immunization Notes Care Provider Rick burns 08-25-2013 influenza virus vaccine, unspecified formulation Charlotte Link MECHANICAL DRAFTER-AUTOMOBILE SALES REPRESENTATIVE Work Phone: [facility] Payers Date Payer Category Payer Self-pay 2022 [facility] [id number] 2022 Unknown 1989 Unknown [id number] [id number]. 2.593 1989 Unknown [id number] 2.16.840.1.413758.3.579. 2.593 1989 Unknown [id number] 2.16.840.1.750109.3.579. 2.593 1989 Unknown [id number] 2.16.840.1.934140.3.579. 2.727 1989 Unknown [id number] 2.16.840.1.397620.3.579. 2.727 1989 Unknown [id number] 2.16.840.1.797625.3.579. 2.727 1989 Unknown [id number] 2.16.840.1.604786.3.579. 2.1286 1989 Unknown [id number] 2.16.840.1.069184.3.579. 2.1259 1989 Unknown [id number] 2.16.840.1.573212.3.579. 2.9 1989 Unknown [id number] 2.16840.1.617419.3.579. 2.1259 1989 Unknown [id number] 2.16840.1.421758.3.579. 2.1258 1989 Unknown [id number] 2.16840.1.502291.3.579. 2.9 1989 Unknown [id number] 2.840.1.616139.3.579. 2.1258 1989 Unknown [id number] 2.840.1.167533.3.579. 2.9 1989 Unknown [id number] 2.16840.1.149361.3.579. 2.1258 1989 Unknown [id number] 2.16840.1.585864.3.579. 2.9 1989 Unknown [id number] 2.16840.1.519710.3.579. 2.1258 1989 Unknown [id number] 2.16840.1.089944.3.579. 2.1259 1989 Unknown [id number] 2.16840.1.306520.3.579. 2.1259 1959 Unknown [id number] 1959 Unknown [id number] Unknown [id number] 2.16840.1.592029.3.579. 2.531 Unknown [id number] 2.840.1.206765.3.579. 2.531 Social History Date Type Detail Facility Tobacco smoking status [facility] [place] Start: 04-28-2024 End: 09-17-2024 Sex Assigned At Female [facility] Start: 1990 Sex Assigned At Female [facility] Start: 07-01-2024 Tobacco smoking status NHIS Ex-smoker [facility] Start: 07-25-2007 End: 06-24-2023 History of tobacco use Current smoker [facility] Start: 07-25-2007 End: 06-24-2023 History of tobacco use Cigarette Smoker [facility] Start: 07-01-2024 End: 09-17-2024 Cigarettes smoked current (pack per day) - Reported 1.5 [facility] Start: 07-12-2019 End: 07-01-2024 Tobacco use and exposure Smokeless tobacco non-user [facility] Start: 08-19-2024 End: 09-17-2024 Alcoholic beverage intake Current drinker of alcohol [...] [facility] Start: 12-25-2016 Tobacco smoking status NCIS Smokes tobacco daily [facility] Childcare Unknown [facility] Start: 07-01-2022 Alcohol Comment rare [facility] Clinical Notes 08-26-2024 to 09-15-2024 Telephone Encounter - Ro Forte NP - 09/15/2024 10:10 AM EDTTelephone Encounter - Ro Forte NP - 09/15/2024 10:10 AM Tete Forte NP - 09/13/2024 1:40 PM EDT Note Date & Type Note Facility 09-15-2024 Telephone encounter Note This has been taken care of. I do not think these are seizure as she has not altered awareness. We will see what the brain MRI shows. She was started on tegretol. If brain MRI normal and symptoms are persistent we can consider referral to [facility] and[facility]or [facility]. [facility] 09-15-2024 Miscellaneous Notes This has been taken care of. I do not think these are seizure as she has not altered awareness. We will see what the brain MRI shows. She was started on tegretol. If brain MRI normal and symptoms are persistent we can consider referral to [facility] and/or [facility]. Patient called leaving a voicemail stating that she has had a few episodes last night and this morning and making her feel a lot different. She doesn't know if they are seizures. She called her insurance asking about about getting the approval for the MRI, she states that they do not require a PA for the MRI. She would like the MRI order faxed to [facility] documented in this encounter [facility] 09-15-2024 Telephone encounter Note Patient called leaving a voicemail stating that she has had a few episodes last night and this morning and making her feel a lot different. She doesn't know if they are seizures. She called her insurance asking about about getting the approval for the MRI, she states that they do not require a PA for the MRI. She would like the MRI order faxed to critical access hospital [facility] 09-14-2024 Telephone encounter Note Done [facility] 09-14-2024 Miscellaneous Notes Done Pharmacy calls stating that the pt is not wanting to cut the baclofen in half and is asking us to send an rx for 5mg tabs to the pharmacy. documented in this encounter [facility] 09-14-2024 Telephone encounter Note Pharmacy calls stating that the pt is not wanting to cut the baclofen in half and is asking us to send an rx for 5mg tabs to the pharmacy. [facility] 09-13-2024 History of Presen t illness Narrative Images from the original note were not included. Subjective Kierra Natarajan is a 33 y.o. year old female No chief complaint on file. Past Medical History: Diagnosis Date ADHD (attention deficit hyperactivity disorder) ([facility]) Anxiety Depression ([facility]) Head injury October 16 Infertility, female PTSD (post-traumatic stress disorder) ([facility]) Past Surgical History: Procedure Laterality Date DILATION AND CURETTAGE OF UTERUS HYSTEROSCOPY PELVIC LAPAROSCOPY TONSILLECTOMY Family History Problem Relation Name Age of Onset Irritable bowel syndrome Mother Tania Depression Mother Tania Alcohol abuse Father Cancer Father Hypertension Father Alcohol abuse Sibling Social History Tobacco Use Smoking status: Former Current packs/day: 0.00 Average packs/day: 1.5 packs/day for 15.9 years (23.9 ttl pk-yrs) Types: Cigarettes Start date: 07/25/2007 Quit date: 06/24/2023 Years since quittin.2 Smokeless tobacco: Never Substance Use Topics Alcohol use: Yes Medication Documentation Review Audit Reviewed by Poonam Cowan LPN (Licensed Nurse) on 09/08/24 at 1053 Medication Order Taking? Sig Documenting Provider Last Dose Status Discontinued 09/08/24 1053 hydrOXYzine HCl (Atarax) 10 MG tablet [id number] Yes Take 10 mg by mouth 3 (three) times a day as needed. Historical Provider, Active ibuprofen 800 MG tablet [id number] Yes Take 800 mg by mouth every 6 (six) hours if needed for moderate pain Jeremy Real, DO Active levoFLOXacin (Levaquin) 250 MG tablet [id number] Yes Take 2 tablets by mouth Daily Jeremy Real, DO Active metFORMIN XR (Glucophage-XR) 500 MG 24 hr tablet [id number] Yes Take 1 tablet (500 mg) by mouth in the morning and 1 tablet (500 mg) before bedtime. Do not crush, chew, or split.. AI Echols Active HPI DIPLOPIA/OCCIPITAL NEURALGIA -Doing much better -occasional less frequent -states that she has been taking the Vitamin D. -states that head pain has been better after injections -has a dull ache, tightness at the base of her neck and between her shoulders in the morning and then gets better -weakness in the right arm, intermittent tingling, persistent -patient no longer has the raspy voice from the injection -double vision is still on and off all day, can present in any fashion -no more pressure behind the eyes -admits difficulty swallowing and this only happens when she lays down -feels like she has mucus that she cannot swallow -she has tried sinus medication -She admits positional tremors on the right side -still persistent balance difficulty. No overall worsening -she occasionally has dizziness with position changes -nausea associated with the dizziness -All of her symptoms are intermittent. -she denies any syncope -she thinks these are better with the baclofen BACK PAIN -she is getting massage and chiropractor -she denies pain currently -deep pain on the right side, torso NEW - FACIAL NUMBNESS/PAIN -on the right side -started 2 weeks ago -she saw PCP for possible ear infection but was started on ATBX. Some thought of saliva gland involvement -Yesterday she got another episode where she had pain that was brief and then started having burning -generally occurring at night -triggered by laying in the back of her head and laying on the right -went to ER on Friday and they did a CT that was unremarkable -was started on a muscle relaxer which helps but symptoms are persistent -was in ER again today due to pain -she does not feel scraping of her fingernails on the right -the right side of her tongue feels numb ROS Review of Systems Constitutional: Positive for appetite change, chills, fatigue and fever. Eyes: Positive for visual disturbance. Respiratory: Negative for cough and shortness of breath. Cardiovascular: Negative for chest pain and palpitations. Gastrointestinal: Positive for nausea. Negative for vomiting. Musculoskeletal: Positive for gait problem and neck pain. Negative for back pain. Neurological: Positive for dizziness, tremors, numbness and headaches. Psychiatric/Behavioral: The patient is nervous/anxious. Objective Visit Vitals LMP 08/26/2024 OB Status Having periods Smoking Status Former GENERAL Apical RRR, no murmur LS CTA throughout Carotid - no bruit Abdomen soft, BS normal Right occipital tenderness to palpation Neurological Exam Mental Status Awake, alert and oriented to person, place and time. Speech is normal. Language is fluent with no aphasia. Attention and concentration are normal. Fund of knowledge is appropriate for level of education. Cranial Nerves CN II: Visual acuity is normal. Visual sorensen full to confrontation. CN III, IV, : Extraocular movements intact bilaterally. Normal lids and orbits bilaterally. Pupils equal round and reactive to light bilaterally. CN V: Facial sensation is normal. CN VII: Full and symmetric facial movement. CN VIII: Hearing is normal. CN IX, X: Palate elevates symmetrically. Normal gag reflex. CN XI: Shoulder shrug strength is normal. CN XII: Tongue midline without atrophy or fasciculations. Sensory Light touch is normal in upper and lower extremities. Temperature is normal in upper and lower extremities. Vibration is normal in upper and lower extremities. Coordination Right: Weqmne-kw-fykb normal. Rapid alternating movement normal.Left: Ihfyan-jt-ssoq normal. Rapid alternating movement normal. Gait Casual gait is normal including stance, stride, and arm swing. Motor Examination RUE Strength deltoid, biceps, triceps, wrist extensors, wrist extensors, wrist flexor, personnel monitor strength 5/5. LUE Strength deltoid, biceps, triceps, wrist extensors, wrist extensors, wrist flexor, personnel monitor strength 5/5. RLE Strength illopsoas, quadriceps, tibialis anterior, and gastrocnemius strength 5/5. LLE Strength illopsoas, quadriceps, tibialis anterior, and gastrocnemius strength 5/5. Tone Normal tone x4 extremities. Reflexes: RUE biceps reflex 3, brachioradialis reflex 3 LUE biceps reflex 3, brachioradialis reflex 3 RLE knee reflex 3, LLE knee reflex 3, Assessment and Plan 1. Degernerative Thoracic Spine Disease - Patient is a 33-year-old female with thoracic back pain. She did have MRI scan of the thoracic spine which showed mild disc bulging without cord signal changes. She reports persistent pain that seems to radiate into the lower abdomen. MRI thoracic spine showed mild DDD at T3/4 which is above the level of her symptoms. On the MRI lumbar it reports a possible cystic lesion, maybe ovarian, but does not specify the side. This could possibly be contributing to her discomfort. She has an appt with her OBGYN coming up. She states this pain has resolved 2. DDD of cervical spine - She had a cervical spine injury in [address] cervical showed reversal of cervical lordosis at C4-5 with widening of interspinous distance. Posterior ligamentous injury is not excluded and correlation to lateral flexion-extension views recommended to document stability. Asymmetric increased soft tissue density within left vallecular region. Small mass is not excluded on this exam. MRI cervical spine 06/2024 showed mild DDD as below. Right upper extremity weakness could be secondary to a cervical radiculopathy but EMG was normal. This seems to be improved and infrequent. She declines medications at this time. We can consider cervical trigger injections 3. Back Pain - She reports persistent back pain in the posterior right lower back that does not radiate. She is now reporting intermittent saddle paresthesias and persistent urinary incontinence. She also has unexplained sexual arousal. MRI of the lumber spine was fairly unremarkable but did report a possible cystic lesion, maybe ovarian, but does not specify the side. This could possibly be contributing to her discomfort. She has an appt with her OBGYN coming up. We can consider EMG of BLE to assess for a peripheral nerve process. She wants wait for now. 4. Nocturnal enuresis - Improved with weight loss but persistent 5. Diplopia and dizziness - She continue to have dizziness that seems to be associated with eating which is improved. She is on several new medication that could be contributing as well. In September she was helping her evuime-sa-cee into a chair and his head hit her in the nose sustaining a nasal fracture. Since then she has had diplopia that seems to be positional dependant but improving. MRI brain was unrevealing. 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 She does state she was thought to have lupus in the past and is following with rheumatology. Possibly her symptoms are related. She also states her symptoms started after starting metformin is that is a consideration as well. She might benefit from neuro-ophthalmology or referral to [facility] based on her clinical course. Sees to be improved at this times and infrequent with direct correlation to headaches for the most part 6. Depression and anxiety - She has a lot of life tressors that impacting her everyday life and function. She is off all medications at this time as they are trying to get . She is very tearful and anxious about this and feels that her brain is very loud . Anxiety and depression may be contributing to her overall clinical picture. She was referred to a psychiatrist, Dr Montes. 7. Occipital neuralgia - She reports pressure in the right skull base and behind her right eye that is consistent with occipital neuralgia. This seems to be less bothersome. We are limited on medications with her endeavors. Occipital block done on the right on 06/08/24 offered some relief but after the injection her voice was raspy. This has resolved. We can consider cervical triggers from C3-6 bilaterally with 3 mL of Marcaine and 40mg of Solumedrol on each side for a total of 6 injections. 8. Trigeminal Neuralgia.Paroxysmal Hemicrania - She states 3 weeks ago she developed a numbness and severe sharp shooting pain in the right side of her face. She has been to the ER 3 times in the last 2 weeks with the pain. She was given Baclofen which did seem to help. The pain is primarily in the trigeminal nerve distribution. Given the location of the pain I do not think an occipital block or trigger injections are going to offer much benefit. Given the acute onset associated with numbness I would recommend repeating the brain MRI w/wo contrast to assess for TN impingement or new intracranial pathology. Her MRI brain in April was unrevealing but these symptoms are new. She was given a medrol pack and she can continue that. I will order Tegeretol 200mg BID and continue the baclofen. RECENT EVALUATION 1. 02/2023 - MRI scan of the thoracic spine that showed T3/4 mild posterior disc bulging which may contribute to the patient's symptoms. No significant central canal or foramen stenosis. No compression fracture. 2. EMG of BUE in 04/2023 was normal 3. Visual evoked potential 04/15/23 was normal. 4. MRI brain 04/2024 is nonacute/normal [address] cervical spine reversal of cervical lordosis at C4-5 with widening of interspinous distance. Posterior ligamentous injury is not excluded and correlation to lateral flexion-extension views recommended to document stability. Asymmetric increased soft tissue density within left vallecular region. Small mass is not excluded on this exam. 6. MR cervical spine in July 13, 2024 showed central disc osteophyte complex presenting causing mild canal and bilateral foraminal narrowing at C5-6. Minimal facet joint degenerative changes at C6-7 with no significant stenosis. 7. MRI lumbar spine 08/10/24 showed a small hemangioma at L1. Otherwise unremarkable 8. B12, TSH, folate normal in 05/2024. Vitamin D low at 29.7. On supplement 9. 09/06/2024 BMP normal CMP was normal on 08/24/2024 10. CTA of the head and neck on 09/06/2024 was negative for occlusive disease. No evidence of aneurysm or dissection. 11. 08/24/2024 total cholesterol 189, triglycerides 91, HDL 43, LDL 127, TSH 1.189, hemoglobin A1c 4.9 Diagnoses and all orders for this visit: Occipital neuralgia of right side - baclofen (Lioresal) 10 MG tablet; Take 0.5 tablets (5 mg) by mouth in the morning and 0.5 tablets (5 mg) in the evening and 0.5 tablets (5 mg) before bedtime. Trigeminal neuralgia of right side of face (CMS/HCC) - carBAMazepine (TEGretol) 200 MG tablet; Take 1 tablet (200 mg) by mouth in the morning and 1 tablet (200 mg) before bedtime. - MR brain w and wo contrast routine Diplopia PLAN: I will order an MRI of the brain to evaluate for intracranial changes such as a tumor, mass, or lesion that would contribute to his symptoms. Add Tegretol 200mg BID for TN pain Continue Baclofen 5mg TID Continue to follow with ophthalmology for diplopia. Consider neuro-ophthalmology referral Continue with Dr Montes, psychiatry Consider referral to [facility] for unexplained symptoms Keep appt with rheumatology and OBGYN Consider EMG of BLE. She wants to wait. I counseled the patient on the possible diagnosis, prognosis, and possible treatment options. I will see the patient back in 4 weeks, or sooner if needed, to make further recommendations documented in this encounter [facility] 09-08-2024 History of Presen t illness Narrative Reason for Appointment: Patient ID: Kierra Natarajan is a 33 y.o. female who [...] Diagnosis Date ADHD (attention deficit hyperactivity disorder) ([facility]) Depression ([facility]) Head injury October 16 Infertility, female PTSD (post-traumatic stress disorder) ([facility] [place] HISTORY PAST MEDICAL HISTORY SOCIAL HISTORY Past Medical History: Diagnosis Date ADHD (attention deficit hyperactivity disorder) ([facility]) Anxiety Depression ([facility]) Head injury October 16 Infertility, female PTSD (post-traumatic stress disorder) ([facility]) Social History Tobacco Use [...] nursing note reviewed. Exam conducted with a hcc coders present. Vitals: Estimated body mass index is [...] Myra Mckenna LPN on behalf of: Jeremy Real DO documented in this encounter [facility] 08-26-2024 Miscellaneous Notes Patient called she is [...] okay to accept? documented in this encounter [facility] 08-26-2024 Telephone encounter Note Patient called she is looking for a new provider. She has been having ongoing double vision, she has seen neuro, eye , obgyn, ect. Nobody has an idea what is is going and is freaking out. I want to get her with either you or furlong he's booking out till about October [facility] 08-26-2024 Telephone encounter Note I would feel she is more appropriate for a physician at this time. [facility] Work Phone: 08-26-2024 Telephone encounter Note Would you be okay to accept? [facility] [employer] System Evaluation + Plan note No data available for this section [facility] Evaluation note No assessment inform ation available [facility] Work Phone: Evaluation note Diagnosis Irregular periods PCOS (polycystic ovarian syndrome) Polycystic ovaries Female infertility Female infertility of unspecified origin Mood disorder (CMS/HCC) Unspecified episodic mood disorder documented [facility] Diagnosis Occipital neuralgia of right side- Primary Trigeminal neuralgia of right side of face (CMS/HCC) Diplopia documented [facility] this [facility] Diagnosis Occipital neuralgia of right side documented [facility] Diagnosis Right facial pain- Primary Headache documented in this encounter [facility] Narrative* Sudheer Chacon MD - 09/17/2024 10:30 AM EDT Subjective Patient ID: Kierra Natarajan is a 33 y.o. female who presents for Sialoadenitis Pt reports one mo ago she started developing intermittent right facial numbness and tingling. Also getting intermittent double vision. Improved since starting tegratol and baclofen. Pt at [facility]. MRI ordered and awaiting scheduling. Pt had a CT angio of the neck at the ED and no abnormalityt noted. Ptdiagnosed with presumed sialoadenitis. No salivary gland inflammation evident on CT Review of Systems All other systems reviewed and are negative. Family History Problem Relation Name Age of Onset Irritable bowel syndrome Mother Jose Miguel Depression Mother Jose Miguel Cancer Mother Jose Miguel Hypertension Mother Jose Miguel Rheum arthritis Mother Jose Miguel Alcohol abuse Father Cancer Father Hypertension Father Alcohol abuse Sibling Diabetes Brother Jonnathan Active Ambulatory Problems Diagnosis Date Noted Neurologic gait dysfunction 04/28/2024 Anxiety 04/28/2024 Occipital neuralgia of right side 07/01/2024 Diplopia 08/17/2024 Dizziness 08/17/2024 Saddle anesthesia 08/17/2024 Chronic bilateral low back pain without sciatica 08/17/2024 Resolved Ambulatory Problems Diagnosis Date Noted No Resolved Ambulatory Problems Past Medical History: Diagnosis Date ADHD (attention deficit hyperactivity disorder) (CMS/HCC) Depression (CMS/HCC) Ear problems Head injury October 16 Infertility, female Migraine (CMS/HCC) 05/2024 PTSD (post-traumatic stress disorder) ([facility]) Past Surgical History: Procedure Laterality Date ADENOIDECTOMY 99 DILATION AND CURETTAGE OF UTERUS HYSTEROSCOPY PELVIC LAPAROSCOPY TONSILLECTOMY Allergies Allergen Reactions Dextromethorphan-Guaifenesin Current Outpatient Medications on File Prior to Visit Medication Sig Dispense Refill baclofen (Lioresal) 5 MG tablet Take 1 tablet (5 mg) by mouth in the morning and 1 tablet (5 mg) inthe evening and 1 tablet (5 mg) before bedtime. 90 tablet 2 carBAMazepine (TEGretol) 200 MG tablet Take 1 tablet (200 mg) by mouth in the morning and 1 tablet (200 mg) before bedtime. 60 tablet 2 hydrOXYzine HCl (Atarax) 10 MG tablet Take 50 mg by mouth 3 (three) times a day as needed ibuprofen 800 MG tablet Take 600 mg by mouth every 6 (six) hours if needed for moderate pain metFORMIN XR (Glucophage-XR) 500 MG 24 hr tablet Take 1 tablet (500 mg) by mouth in the morning and1 tablet (500 mg) before bedtime. Do not crush, chew, or split.. 30 tablet 11 methylPREDNISolone (Medrol) 4 MG tablet [DISCONTINUED] cephalexin (Keflex) 500 MG capsule Take 500 mg by mouth in the morning and 500 mg atnoon and 500 mg in the evening and 500 mg before bedtime. [DISCONTINUED] levoFLOXacin (Levaquin) 250 MG tablet Take 2 tablets by mouth Daily [DISCONTINUED] venlafaxine XR (Effexor XR) 37.5 MG 24 hr capsule Take 1 capsule (37.5 mg) by mouth Daily Do not crush or chew. 30 capsule 11 [DISCONTINUED] baclofen (Lioresal) 10 MG tablet Take 5 mg by mouth in the morning and 5 mg in the evening and 5 mg before bedtime. [DISCONTINUED] baclofen (Lioresal) 10 MG tablet Take 0.5 tablets (5 mg) by mouth in the morning and0.5 tablets (5 mg) in the evening and 0.5 tablets (5 mg) before bedtime. 45 tablet 2 No current facility-administered medications on file prior to visit. Objective Last Recorded Vitals Vitals: 09/17/24 0949 BP: 137/88 ENT Physical Exam Constitutional Appearance: patient appears well-developed, well-nourished and well-groomed, Head and Face Appearance: head appears normal and face appears atraumatic; Palpation: TMJ tender on the right; TMJ comments: . Pt appears to splint mouth Ear Ear Canals: right ear canal normal; left ear canal normal; Tympanic Membranes: right tympanic membrane normal; left tympanic membrane normal; Nose External Nose: nares patent bilaterally; external nose normal; Internal Nose: septum normal; Oral Cavity/Oropharynx Tongue: normal; Oral mucosa: normal; Hard palate: normal; Soft palate: normal; Tonsils: normal; Neck Neck: neck normal; neck palpation normal; Thyroid: thyroid normal; Respiratory Inspection: breathing unlabored; normal breathing rate; Auscultation: breath sounds are clear; Cardiovascular Inspection: extremities are warm and well perfused; no peripheral edema present; Auscultation: regular rate and rhythm; Assessment/Plan Diagnoses and all orders for this visit: Right facial pain I suspect pt's facial sx are due to RT TMJ. I would like her to start and OTC oral appliance see Leonid for eval. I do agree with an MRI as she seems to be having cranial neuropathies that would not be caused by TMJ. F/U with me if MRI suggests any [facility] No data available for this section [facility] InstructionsNot on filedocumented in this encounter [facility] SystemProgress note No data available for this section [facility] Summary Purpose Family History No Family [...] and content) DATE CREATED AUTHOR 03/09/2021 [facility] DATE CREATED AUTHOR AUTHOR'S ORGANIZ ATION 03/09/2023 [facility] DATE CREATED AUTHOR AUTHOR'S ORGANIZ ATION 07/10/2023 [facility] DATE CREATED AUTHOR AUTHOR'S ORGANIZ ATION 06/08/2024 [facility] DATE CREATED AUTHOR AUTHOR'S ORGANIZ ATION 08/16/2024 [facility] DATE CREATED AUTHOR AUTHOR'S ORGANIZ ATION 09/18/2024 [facility] EPIC DATE CREATED AUTHOR AUTHOR'S ORGANIZ ATION 09/25/2024 [facility] Patient Care team informatio n (unrecognized section [...] August 10, 2024 End: August 10, 2024 [employer] Relationship Specialty Start Date End Date Unallocated, Cong Chi MD [address] [place] [address] PCP - General Family Medicine 08/17/24 [employer] Relationship Specialty Start Date End Date Unallocated, Cong Chi MD [address] [place] [address] PCP - General Family Medicine 08/17/24 [employer] Relationship Specialty Start Date End Date No Pcp, [place] [address] PCP - General Family Medicine 05/31/24 [employer] Relationship Specialty Start Date End Date Unallocated, [place] [address] PCP - General Family Medicine 08/17/24 [employer] Relationship Specialty Start Date End Date Unallocated, Cong Chi MD [facility] [place] [address] PCP - [facility] 08/17/24 [employer] Relationship Specialty Start Date End Date Unallocated, Cong Chi MD [facility] [address] PCP - General [facility] 08/17/24 [employer] Relationship Specialty Start Date End Date Unallocated, Cong Chi MD [facility] [place] [address] PCP - General [facility] 08/17/24 [employer] Relationship Specialty Start Date End Date Unallocated, Cong Chi MD [facility] [place] [address] PCP - [facility] 08/17/24 [employer] Relationship Specialty Start Date End Date Unallocated, Cong Chi MD [address] [place] [address] [place] [address] PCP - [facility] 08/17/24 [employer] Relationship Specialty Start Date End Date Unallocated, Cong Chi MD [facility] [place] [address] PCP - General [facility] Medicine 08/17/24 Goals (unrecognized section and content) Goals may be documented in a n alternate section Reason for Visit (unrecogniz ed section and content) Reason Comments Follow up testing Reason Comments Sialoadenitis FOR RECORDS PERTAINING TO PATIENTS WHO ARE [...] BE BASED ON THE PRIMARY CLINICAL RECORDS. [facility] [employer] [facility]. provides no warranty or guarantee of the accuracy or completeness of information in this document.
[2024-09-25 09:42] LABS: Basophils Percent Auto 0.7 % (0.2-2.0); Eosinophils Absolute Auto 0.3 10^3/uL (0.0-0.7); Eosinophils Percent Auto 5.3 % (0.9-7.0); Hematocrit 39.7 % (36.0-48.0); Hemoglobin 13.1 g/dL (12.0-16.0); Immature Granulocytes Abs Auto 0.02 10^3/uL (0.00-0.03); Immature Granulocytes Pct Auto 0.4 % (0.0-0.5); Lymphocytes Absolute Auto 1.2 10^3/uL (1.2-3.8); Lymphocytes Percent Auto 21.7 % (20.5-60.0); Mean Corpuscular Hemoglobin 28.8 pg (26.7-34.0); Mean Corpuscular Volume 87.3 fL (81.0-99.0); Mean Platelet Volume 10.9 fL (9.5-13.5); Monocytes Absolute Auto 0.6 10^3/uL (0.3-0.8); Monocytes Percent Auto 10.2 % (1.7-12.0); Neutrophils Absolute Auto 3.4 10^3/uL (1.4-6.5); Neutrophils Percent Auto 61.7 % (43.0-75.0); Platelet Count 210 10^3/uL (150-450); Red Blood Count 4.55 10^6/uL (4.20-5.40); Red Cell Distribution Width 12.7 % (11.0-15.0); White Blood Count 5.5 10^3/uL (4.0-11.0)
[2024-09-25 10:48] LABS: Alanine Aminotransferase 21 U/L (14-59); Albumin Globulin Ratio 0.9; Albumin Level 3.3 g/dL (3.4-5.0); Alkaline Phosphatase 79 U/L (46-116); Anion Gap 13.8; Aspartate Amino Transferase 16 U/L (15-37); BUN Creatinine Ratio 10.1; Bilirubin Total 0.3 mg/dL (0.2-1.0); Calcium 8.3 mg/dL (8.5-10.1); Carbon Dioxide 24.3 mmol/L (21.0-32.0); Chloride 108 mmol/L (98-107); Estimated GFR (African America >60 (>=60 mL/min/1.73m^2); Estimated GFR (Non-African Ame >60 (>=60 mL/min/1.73m^2); Globulin 3.5 g/dL; Glucose 84 mg/dL (74-106); Potassium 4.1 mmol/L (3.5-5.1); Sodium 142 mmol/L (136-145); Thyroid Stimulating Hormone 1.482 uIU/mL (0.358-3.740); Total Protein 6.8 g/dL (6.4-8.2)
== END 2024-09-25 09:07 | disposition home or self-care (01) ==
LOC: LAB 09:09
DX: G50.0 Trigeminal neuralgia (principal); R53.83 Other fatigue
CPT/HCPCS: 36415; 80053; 84443; 85025

== ENCOUNTER 2024-10-06 14:07 | Outpatient (OUT) | payer BC, SELFPAY ==
--- NOTE | 2024-10-06 14:13 | CT_ITS ---
The [address] [address] Patient Name: KIERRA HAIRSTON MRN: [id number] date: 1990 Sex: F Assigned Patient Location: CT Current Patient Location: Accession/Order Number: [id number] Exam Date: 10/06/2024 14:20 Report Date: 10/07/2024 06:38 At the request of: SUDHEER CHACON Procedure: CT soft tissue neck w con EXAMINATION: CT soft tissue neck w con HISTORY: Lymphadenopathy Of Left Cervical Region COMPARISON: No relevant comparison available. TECHNIQUE: Axial, Coronal, and Sagittal CT images created with IV contrast. Dose reduction techniques were achieved by using automated exposure control and/or adjustment of mA and/or kV according to patient size and/or use of iterative reconstruction technique. FINDINGS: NASOPHARYNX: No asymmetry of the fossae of Rosenmuller and torus tubarius. ORAL CAVITY: No visible mass. OROPHARYNX: No asymmetry of the facial and lingual tonsils. HYPOPHARYNX: No mass or other visible lesion. LARYNX: No mass or asymmetry of the vocal cords. SINUSES: No significant fluid or mucosal thickening. NECK GLANDS: No visible abnormality of the parotid, submandibular, and thyroid glands. LYMPH NODES: No pathological-appearing or enlarged lymph nodes. VASCULATURE: No suspicious abnormality. BONES: No significant osseous lesions. OTHER: No additional imaging findings. CT/CT soft tissue neck w con IMPRESSION: 1. Skin surface marker localizing patient's palpable area overlies the right parotid gland; no suspicious findings. 2. Multiple small lymph nodes within the neck; no mass, fluid collection, or suspicious findings. Electronically authenticated by: ERMELINDA PAIGE Date: 10/07/2024 06:38
--- OUTSIDE RECORDS SUMMARY | 2024-10-06 14:26 | XMS_ITS | CCD ---
Author Organization [facility] Care Team Providers Care Nephrologist Name Role Phone SHAMMO, SAJAN Admitting Unavailable [...] Unavailable SHAMMO, SAJAN CHRISTIAN Primary Care Physician WINDALLYN RO C Referring Unavailable NO PCP, NO PCP Primary Care Unavailable Windnagel, ANP-BC Ro Attending Provider [phone] NON STAFF Primary Care Provider Unavailabl e RASTA Patelicia Ladan Attending Provider [phone] NON STAFF Primary Care Unavailable Windnagel, Ro C Referring Unavailable Windnagel, Ro Admitting Unavailable Windnagel, Ro Attending Unavailable Windnagel, Ro C Admitting Unavailable Windnagel, Ro C Attending Unavailable NON STAFF Primary Care Unavailable Unallocated , Ilianas Provider Primary Care Provi jim Unallocated , Noms Provider Primary Care Provi jim No Pcp, No Pcp Primary Care Provider Unavailabl e NONE, XXXX Primary Care Physician Unavailab le Unavailable Primary Care Provider Unavailabl e ANNA MARIE HADDAD Attending Unavailable JIMMIE ANTOINE Attending Unavailable JEREMY REAL Attending Unavailable BRUNO RYAN Attending Unavailable WINDNAGEL, RO C Attending Unavailable WINDNAGEL, RO C Referring Unavailable WINDNAGEL, RO C Attending Unavailable WINDNAGEL, RO C Attending Unavailable WINDNAGEL, RO C Attending Unavailable WINDNAGEL, RO C Attending Unavailable BARB STALLINGS Attending Unavailable JEREMY REAL Attending Unavailable WINDNAGEL, RO C Attending Unavailable TIMMIS, SUDHEER H Attending Unavailable ROHIT LEOS Referring Unavailable WINDNAGEL, RO C Referring Unavailable TIMMIS, SUDHEER H Attending Unavailable ROHIT LEOS Referring Unavailable Timmis, Sudheer H Admitting Unavailable Timmis, Sudheer H Attending Unavailable Timmis, Sudheer H Admitting Unavailable Timmis, Sudheer H Attending Unavailable Allergies Allergy Classification Reported Allergen(s) Allergy Type Date of Onset Reaction(s) Facility (18 sources) Dextromethorphan / guaiFENesin; Translations: [DEXTROMETHORPHAN- AIFENESIN] Drug Allergy 3 [facility] Medications Current Medications Medication Drug Class(es) Dates Sig (Normalized) Sig (Original) amoxicillin 875 mg / clavulanate 125 mg oral tablet (3 sources) Penicillin-class Antibacterial Start: 10-01-2024 End: 10-15-2024 take 1 tablet by mouth in the morning amoxicillin-clav ulanate (Augmentin) 875-125 MG tablet Indications: LAD (lymphadenopathy ) of left cervical region Take 1 tablet (875 mg) by mouth in the morning and 1 tablet (875 mg) before bedtime. Do all this for 14 days. 28 tablet 10/01/2024 10/15/2024 Active baclofen 5 mg oral tablet (15 sources) gamma-Aminobutyric Acid-ergic Agonist Start: 09-14-2024 End: 12-13-2024 take [...] 5 mg before bedtime. 09/13/2024 Discontinued (Reorder) 12 hr carBAMazepine 300 mg extended release oral capsule (12 sources) Mood Stabilizer Start: 09-23-2024 End: 10-23-2024 take 1 capsule by mouth in the morning, then take 1 capsule by mouth every twelve hours at bedtime carBAMazepine ER (Carbatrol) 300 MG 12 hr capsule Indications: Trigeminal neuralgia of right side of face (CMS/HCC) Take 1 capsule (300 mg) by mouth in the morning and 1 capsule (300 mg) before bedtime. Do not crush or chew.. 60 capsule 2 09/23/2024 10/23/2024 Active Start: 09-13-2024 End: 09-13-2025 take 1 tablet [...] mouth every week ergocalciferol (Drisdol) 1.25 MG (70018 UT) capsule Indications: Vitamin D deficiency Take 1 capsule (1.25 mg) by mouth 1 (one) time per week 12 capsule 3 05/31/2024 09/08/2024 Discontinued hydrOXYzine hydrochloride 10 mg oral tablet (18 sources) Antihistamine Start: 07-21-2009 take 5 tablets [...] 07/21/2009 Active ibuprofen 800 mg oral tablet (15 sources) Nonsteroidal Anti-inflammatory Drug Start: 09-04-2024 ibuprofen [...] hydrochloride 500 mg extended release oral tablet (16 sources) Biguanide Start: 08-19-2024 End: 08-19-2025 take 1 tablet by mouth every twenty-fou r hours in the morning metFORMIN XR (Glucophage-XR) 500 MG 24 hr tablet Indications: PCOS (polycystic ovarian syndrome) Take 1 tablet (500 mg) by mouth in the morning and 1 tablet (500 mg) before bedtime. Do not crush, chew, or split.. 30 tablet 11 08/19/2024 10/01/2024 Discontinued (Therapy completed) methylPREDNISolone 4 mg oral tablet (6 sources) Corticosteroid Start: 09-13-2024 End: 10-01-2024 methylPREDNISolone (Medrol) 4 MG tablet 09/13/2024 10/01/2024 Discontinued (Therapy completed) predniSONE 20 mg oral tablet (3 sources) Start: 10-01-2024 End: 10-07-2024 take 1 tablet by mouth in the morning predniSONE (Deltasone) 20 MG tablet Indications: LAD (lymphadenopathy) of left cervical region Take 1 tablet (20 mg) by mouth in the morning and 1 tablet (20 mg) before bedtime. Do all this for 6 days. 12 tablet 10/01/2024 10/07/2024 Active 24 hr venlafaxine 37.5 mg extended [...] quadrant pain] Onset: 09-23-2024 Episodic Anxiety disorders (20 sources) Anxiety; Translations: [Posttraumatic stress disorder] Onset: 04-28-2024 07-03-2023 Chronic Attention-deficit, conduct, and disruptive behavior disorders (2 sources) Attention deficit hyperactivity disorder 07-03-2023 Chronic Blindness and vision defects (20 sources) Diplopia; Translations: [Diplopia] Onset: 05-31-2024 08-17-2024 Episodic Conditions associated with dizziness or vertigo (17 sources) Dizziness; Translations: [Dizziness and giddiness] Onset: 08-17-2024 08-17-2024 Episodic Endometriosis (3 sources) Endometriosis (clinical); Translations: [Endometriosis, unspecified] Onset: 06-04-2016 07-03-2023 Chronic Female infertility (4 sources) Female infertility; Translations: [Female infertility, unspecified] 07-03-2023 Chronic Genitourinary symptoms and ill-defined conditions (1 source) Nocturnal enuresis; Translations: [NOCTURNAL ENURESIS] Onset: 03-09-2023 Chronic Headache; including migraine (2 sources) Pain in face; Translations: [Right facial pain] 09-17-2024 Episodic Lymphadenitis (4 sources) Cervical lymphadenopathy; Translations: [Localized enlarged lymph nodes] Onset: 09-26-2024 10-01-2024 Episodic Malaise and fatigue (2 sources) Other fatigue; Translations: [Other fatigue] Onset: 09-23-2024 Episodic Menstrual disorders (2 sources) Irregular periods; Translations: [Irregular menstruation, unspecified] 09-08-2024 Chronic Mood disorders (5 sources) Depressive disorder; Translations: [Depressive disorder] Onset: 07-13-2019 07-03-2023 Chronic Other endocrine disorders (2 sources) Polycystic ovary syndrome; Translations: [Polycystic ovarian syndrome] 09-08-2024 Chronic Other nervous system disorders (1 source) Polyneuropathy, unspecified; Translations: [Polyneuropathy, unspecified] Onset: 05-31-2024 Chronic Other nervous system disorders (17 sources) Skin sensation disturbance; Translations: [Anesthesia of [...] and subcutaneous tissue, unspecified] Onset: 09-23-2024 Episodic Other upper respiratory infections (2 sources) Acute upper respiratory infection, unspecified; Translations: [Acute upper respiratory infection, unspecified] Onset: 09-26-2024 Episodic Residual codes; unclassified (1 source) Family [...] 06-04-2016 02-10-2023 Episodic Other nervous system disorders (17 sources) Abnormal gait; Translations: [Unspecified abnormalities of gait and mobility] Onset: 04-28-2024 04-28-2024 Episodic Other screening for suspected conditions (not mental disorders or infectious disease) (2 sources) Encounter for screening for cardiovascular disorders; Translations: [Patient encounter status] Onset: 06-04-2016 06-04-2016 Episodic Results Test Name Value Interpretation Reference Range Facility CBC w/ Auto Diffon 4 Basophils/100 WBC (Bld) 0.3 % Normal 0.0-2.0 [facility] Comment on above: Performed By: #### 2 [id number] #### [facility] [address] [place] [address] Basophils/Leukocytes Auto (Bld) [Pure # fraction] 0.0 E9/L Normal 0.0-0.2 [facility] Comment on above: Performed By: #### 2 [id number] #### [facility] [address] [place] [address] Eosinophils (Bld) [#/Vol] 0.2 E9/L Normal 0.0-0.5 [facility] Comment on above: Performed By: #### 2 [id number] #### [facility] [address] [place] [address] Eosinophils/100 WBC (Bld) 4.5 % Normal 0.0-8.0 [facility] Comment on above: Performed By: #### 2 [id number] #### [facility] [address] [place] [address] Erythrocyte distribution width (RBC) [Ratio] 13.3 % Normal 10.9-14.2 [facility] Comment on above: Performed By: #### 2 [id number] #### [facility] [address] [place] [address] Hematocrit (Bld) [Volume fraction] 39.3 % Normal 34.0-46.0 [facility] Comment on above: Performed By: #### 2 [id number] #### [facility] [address] [place] [address] Hemoglobin (Bld) [Mass/Vol] 13.7 g/dL Normal 12.0-16.0 [facility] Comment on above: Performed By: #### 2 [id number] #### [facility] [address] [place] [address] Lymphocytes (Bld) [#/Vol] 0.8 E9/L Low 1.0-4.0 [facility] Comment on above: Performed By: #### 2 [id number] #### [facility] [address] [place] [address] Lymphocytes/100 WBC (Bld) 14.6 % Normal 14.0-50.0 [facility] Comment on above: Performed By: #### 2 [id number] #### [facility] [address] [place] [address] MCH (RBC) [Entitic mass] 29.8 pg Normal 27.0-34.0 [facility] Comment on above: Performed By: #### 2 [id number] #### [facility] [address] [place] [address] MCHC (RBC) [Mass/Vol] 34.8 g/dL Normal 31.4-36.0 [facility] Comment on above: Performed By: #### 2 [id number] #### [facility] [address] [place] [address] MCV (RBC) [Entitic vol] 85.7 fL Normal 80.0-100.0 [facility] Comment on above: Performed By: #### 2 [id number] #### [facility] [address] [place] [address] Monocytes (Bld) [#/Vol] 0.4 E9/L Normal 0.2-1.0 [facility] Comment on above: Performed By: #### 2 [id number] #### [facility] [address] [place] [address] Neutrophils (Bld) [#/Vol] 3.9 E9/L Normal 2.0-7.5 [facility] Comment on above: Performed By: #### 2 [id number] #### [facility] [address] [place] [address] Neutrophils/100 WBC (Bld) 72.6 % Normal 36.0-75.0 [facility] Comment on above: Performed By: #### 2 [id number] #### [facility] [address] [place] [address] Platelet mean volume (Bld) [Entitic vol] 8.8 fL Normal 6.4-10.8 [facility] Comment on above: Performed By: #### 2 [id number] #### [facility] [address] [place] [address] Platelets (Bld) [#/Vol] 231.0 E9/L Normal 150.0-500.0 [facility] Comment on above: Performed By: #### 2 [id number] #### [facility] [address] [place] [address] RBC (Bld) [#/Vol] 4.6 E12/L Normal 4.3-5.9 [facility] Comment on above: Performed By: #### 2 [id number] #### [facility] [address] [place] [address] WBC corrected for nucl RBC Auto (Bld) [#/Vol] 5.4 E9/L Normal 4.0-11.0 [facility] Comment on above: Performed By: #### 2 [id number] #### [facility] [address] [place] [address] CHEMISTRYOrdered By: SYSTEM SYSTEM on 10-01-2024 CRP [Mass/Vol] 0.7 mg/dL Normal <=1.9mg/dL Remisol em CRPon 10-01-2024 CRP [Mass/Vol] 0.7 mg/dL Normal <=1.9 [facility] Comment on above: Performed By: #### 2 [id number] #### [facility] [address] [place] [address] [facility] CBC W/ AUTO DIFFon EOSINOPHILS/100 LEUKOCYTES:NFR:PT:BLD :QN:AUTOMATED COUNT 4.5 % 0.0 - 8.0 % [facility] EOSINOPHILS:NCNC:PT:B LD:QN: 0.2 [facility] BASOPHILS/LEUKOCYTES: NFR.DF:PT:BLD:QN:AUTO MATED COUNT 0 [facility] ERYTHROCYTE MEAN CORPUSCULAR HEMOGLOBIN CONCENTRATION:MCNC:PT :RBC:QN 34.8 [facility] ERYTHROCYTE MEAN CORPUSCULAR HEMOGLOBIN:ENTMASS:PT :RBC:QN 29.8 pg 27.0 - 34.0 pg [facility] ERYTHROCYTE MEAN CORPUSCULAR VOLUME:ENTVOL:PT:RBC: QN:AUTOMATED COUNT 85.7 fL 80.0 - 100.0 fL [facility] ERYTHROCYTES:NCNC:PT: BLD:QN:AUTOMATED COUNT 4.6 [facility] HEMOGLOBIN:MCNC:PT:BL D:QN: 13.7 [facility] LEUKOCYTES 5.4 [facility] MONOCYTES:NCNC:PT:BLD :QN:AUTOMATED COUNT 0.4 [facility] NEUTROPHILS:NCNC:PT:B LD:QN:AUTOMATED COUNT 3.9 [facility] PLATELETS:NCNC:PT:BLD :QN:AUTOMATED COUNT 231 [facility] Interpretation and review of laboratory results Abnormal [facility] LYMPHOCYTES:NCNC:PT:B LD:QN: 0.8 Low [facility] Original Ordering Provider: MD Sudheer BOCANEGRA [facility] HEMATOLOGYOrdered By: SYSTEM SYSTEM on 10-01-2024 Basophils/100 WBC (Bld) 0.3 % Normal 0.0 - 2.0 % [facility] Basophils/Leukocytes Auto (Bld) [Pure # fraction] 0.0 E9/L Normal 0.0 - 0.2 E9/L [facility] Eosinophils (Bld) [#/Vol] 0.2 E9/L Normal 0.0 - 0.5 E9/L [facility] Eosinophils/100 WBC (Bld) 4.5 % Normal 0.0 - 8.0 % [facility] Erythrocyte distribution width (RBC) [Ratio] 13.3 % Normal 10.9 - 14.2 % [facility] Hematocrit (Bld) [Volume fraction] 39.3 % Normal 34.0 - 46.0 % [facility] Hemoglobin (Bld) [Mass/Vol] 13.7 g/dL Normal 12.0 - 16.0 gm/dL [facility] Lymphocytes (Bld) [#/Vol] 0.8 E9/L Low 1.0 - 4.0 E9/L [facility] Lymphocytes/100 WBC (Bld) 14.6 % Normal 14.0 - 50.0 % [facility] MCH (RBC) [Entitic mass] 29.8 pg Normal 27.0 - 34.0 pg [facility] MCHC (RBC) [Mass/Vol] 34.8 g/dL Normal 31.4 - 36.0 gm/dL [facility] MCV (RBC) [Entitic vol] 85.7 fL Normal 80.0 - 100.0 fL [facility] Monocytes (Bld) [#/Vol] 0.4 E9/L Normal 0.2 - 1.0 E9/L [facility] Monocytes/100 WBC (Bld) 8.0 % Normal 4.0 - 14.0 % [facility] Neutrophils (Bld) [#/Vol] 3.9 E9/L Normal 2.0 - 7.5 E9/L [facility] Neutrophils/100 WBC (Bld) 72.6 % Normal 36.0 - 75.0 % [facility] Platelet mean volume (Bld) [Entitic vol] 8.8 fL Normal 6.4 - 10.8 fL [facility] Platelets (Bld) [#/Vol] 231.0 E9/L Normal 150.0 - 500.0 E9/L [facility] RBC (Bld) [#/Vol] 4.6 E12/L Normal 4.3 - 5.9 E12/L [facility] WBC corrected for nucl RBC Auto (Bld) [#/Vol] 5.4 E9/L Normal 4.0 - 11.0 E9/L [facility] HEMATOLOGYOrdered By: Michele Lofton on 10-01-2024 ESR (Bld) [Velocity] 11 mm/h Normal 0 - 34 mm/hr FT [facility] HemeAutoSS Sed Rate Automatedon 024 ESR (Bld) [Velocity] 11 mm/h Normal 0-34 [facility] Comment on above: Performed By: #### 1 [id number] #### [facility] [address] [place] [address] Patient Outreachon 4 Patient Outreach [id number] Philomena NATARAJAN 1990 F Date Provider Department Center 09/28/2024 [id number] ELENA GALEANO [facility] Mona Collins Family History Problem Relation Age of Onset Anxiety disorder Mother Arthritis Mother Depression Mother Alcohol abuse Father Cancer Father Alcohol abuse Sister Anxiety disorder Sister Arthritis Mother's Sister Arthritis Mother's Brother Arthritis Mother's Sister Family Status - Relation Status Age at Mother Father Sister Mother's Sister Mother's Brother Mother's Sister Normal [facility] CBC WITH AUTO DIFFERENTIALon 09-26-2024 Basophils (Bld) [#/Vol] 0.05 10*3/uL Normal 0.00-0.20 [facility] Comment on above: Performed By: #### L [id number] #### [facility] ([facility]) [address] [place] [address] Basophils/100 WBC (Bld) 1.0 % Normal 0.0-1.0 [facility] Comment on above: Performed By: #### L [id number] #### [facility] ([facility]) [address] [place] [address] Eosinophils (Bld) [#/Vol] 0.26 10*3/uL Normal 0.00-0.50 [facility] Comment on above: Performed By: #### L [id number] #### [facility] ([facility]) [address] [place] [address] Eosinophils/100 WBC (Bld) 5.0 % Normal 0.0-6.0 [facility] Comment on above: Performed By: #### L [id number] #### [facility] ([facility]) [address] [place] [address] Erythrocyte distribution width (RBC) [Ratio] 13.0 % Normal 11.5-15.0 [facility] Comment on above: Performed By: #### L [id number] #### [facility] [address] [place] [address] ERYTHROCYTE MEAN CORPUSCULAR HEMOGLOBIN CONCENTRATION (G/DL) BY AUTOMATED 34.0 g/dL Normal 32.0-35.0 [facility] Comment on above: Performed By: #### L [id number] #### [facility] [address] [place] [address] Hematocrit (Bld) [Volume fraction] 37.1 % Normal 36.0-48.0 [facility] Comment on above: Performed By: #### L [id number] #### [facility] [address] [place] [address] Hemoglobin (Bld) [Mass/Vol] 12.6 g/dL Normal 12.0-15.0 [facility] Comment on above: Performed By: #### L [id number] #### [facility] ([facility]) [address] [place] [address] Immature granulocytes (Bld) [#/Vol] 0.02 10*3/uL Normal 0.00-0.20 [facility] Comment on above: Performed By: #### L [id number] #### [facility] ([facility]) [address] [place] [address] Immature granulocytes/100 WBC (Bld) 0.4 % Normal 0.0-1.0 [facility] Comment on above: Performed By: #### L [id number] #### [facility] ([facility]) [address] [place] [address] Lymphocytes (Bld) [#/Vol] 0.98 10*3/uL Low 1.20-4.00 [facility] Comment on above: Performed By: #### L [id number] #### [facility] ([facility]) [address] [place] [address] Lymphocytes/100 WBC (Bld) 18.9 % Low 20.0-45.0 [facility] Comment on above: Performed By: #### L [id number] #### [facility] ([facility]) [address] [place] [address] MCH (RBC) [Entitic mass] 29.4 pg Normal 27.0-33.0 [facility] Comment on above: Performed By: #### L [id number] #### [facility] ([facility]) [address] [place] [address] MCV (RBC) [Entitic vol] 86.7 fL Normal 82.0-98.0 [facility] Comment on above: Performed By: #### L [id number] #### [facility] ([facility]) [address] [place] [address] Monocytes (Bld) [#/Vol] 0.43 10*3/uL Normal 0.10-1.00 [facility] Comment on above: Performed By: #### L [id number] #### [facility] ([facility]) [address] [place] [address] Monocytes/100 WBC (Bld) 8.3 % Normal 5.0-12.0 [facility] Comment on above: Performed By: #### L [id number] #### [facility] [address] [place] [address] Neutrophils (Bld) [#/Vol] 3.44 10*3/uL Normal 1.60-7.60 [facility] Comment on above: Performed By: #### L [id number] #### [facility] [address] [place] [address] Neutrophils/100 WBC (Bld) 66.4 % Normal 40.0-72.0 [facility] Comment on above: Performed By: #### L [id number] #### [facility] [address] [place] [address] NRBC (PER 100 WBCS) BY AUTOMATED COUNT 0.0 % Normal 0 [facility] Comment on above: Performed By: #### L [id number] #### [facility] ([facility]) [address] [place] [address] PLATELETS (10*3/UL) IN BLOOD AUTOMATED COUNT 224 10*3/uL Normal 150-400 [facility] Comment on above: Performed By: #### L [id number] #### [facility] ([facility]) [address] [place] [address] RBC (Bld) [#/Vol] 4.28 10*6/uL Normal 3.80-5.00 [facility] Comment on above: Performed By: #### L [id number] #### [facility] ([facility]) [address] [place] [address] WBC (Bld) [#/Vol] 5.18 10*3/uL Normal 4.00-10.60 [facility] Comment on above: Performed By: #### L [id number] #### [facility] ([facility]) [address] [place] [address] COMPREHENSIVE METABOLIC PANE Philip 09-26-2024 Albumin [Mass/Vol] 3.9 g/dL Normal 3.5-5.7 [facility] Comment on above: Performed By: #### L [id number] #### [facility] ([facility]) [address] [place] [address] ALP [Catalytic activity/Vol] 67 U/L Normal 34-104 [facility] Comment on above: Performed By: #### L [id number] #### [facility] ([facility]) [address] [place] [address] ALT [Catalytic activity/Vol] 17 U/L Normal 7-52 [facility] Comment on above: Performed By: #### L [id number] #### [facility] [address] [place] [address] Anion gap [Moles/Vol] 9 mmol/L Normal 7-20 [facility] Comment on above: Performed By: #### L [id number] #### [facility] ([facility]) [address] [place] [address] AST [Catalytic activity/Vol] 15 U/L Normal 13-39 [facility] Comment on above: Performed By: #### L [id number] #### [facility] ([facility]) [address] [place] [address] Bilirubin [Mass/Vol] 0.2 mg/dL Low 0.3-1.0 [facility] Comment on above: Performed By: #### L [id number] #### [facility] [address] [place] [address] Calcium [Mass/Vol] 8.3 mg/dL Low 8.6-10.3 [facility] Comment on above: Performed By: #### L [id number] #### [facility] [address] [place] [address] Chloride [Moles/Vol] 110 mmol/L High 98-107 [facility] Comment on above: Performed By: #### L [id number] #### [facility] [address] [place] [address] CO2 [Moles/Vol] 24 mmol/L Normal 21-31 [facility] Comment on above: Performed By: #### L [id number] #### [facility] [address] [place] [address] Creatinine [Mass/Vol] 0.72 mg/dL Normal 0.60-1.20 [facility] Comment on above: Performed By: #### L [id number] #### [facility] ([facility]) [address] [place] [address] GLOMERULAR FILTRATION RATE ML/MIN/1.73 SQ M.PREDICTED 112.4 mL/min/1.73m*2 Normal >60.0 [facility] Comment on above: Result Comment: [facility]???s estimated glomerular filtration rate (eGFR) will [...] [id number] #### [facility] ([facility]) [address] [place] [address] Glucose [Mass/Vol] 90 mg/dL Normal 70-100 [facility] Comment on above: Performed By: #### L [id number] #### [facility] ([facility]) [address] [place] [address] Potassium [Moles/Vol] 3.7 mmol/L Normal 3.5-5.1 [facility] Comment on above: Performed By: #### L [id number] #### [facility] ([facility]) [address] [place] [address] Protein [Mass/Vol] 6.3 g/dL Normal 6.0-8.3 [facility] Comment on above: Performed By: #### L [id number] #### [facility] ([facility]) [address] [place] [address] Sodium [Moles/Vol] 139 mmol/L Normal 136-145 [facility] Comment on above: Performed By: #### L [id number] #### [facility] ([facility]) [address] [place] [address] Urea nitrogen [Mass/Vol] 10 mg/dL Normal 7-25 [facility] Comment on above: Performed By: #### L AB17 #### [facility] ([facility]) [address] [place] [address] UREA NITROGEN/CREATININE (MASS RATIO) IN SER/PLAS 13.9 Normal [facility] Comment on above: Performed By: #### L AB17 #### [facility] ([facility]) [address] [place] [address] EDNURSon 09-26-2024 EDNURS started having swollen neck lymph nodes. Seen doctor for this and had blood work and having more swelling in the neck and behind the ears. States difficult to swallow. Having body aches and itching. Was told this is because the carbamazepine side effects but the swelling is worse she states. Talking in complete full sentences. Normal [facility] EDPROVon 09-26-2024 EDPROV HPI Chief Complaint Patient presents with Swollen Glands 33-year-old female with past medical history of anxiety, depression, trigeminal neuralgia, chronic back pain, PCOS, last menstrual period September 23, sees neurology for intermittent double vision trigeminal neuralgia symptoms right facial numbness and tingling presents for complaint of swollen glands in her neck and behind her ears she reports these are peanut sized patient reports she has had bodyaches sore throat dry cough, and right ear ache for several days. Patient reports dry cough off and on for greater than 1 year. Patient reports she feels itchy but she denies any rash. Patient is taken nothing at home. Patient reports she saw her primary care provider for the same thing on . Patient denies any nausea vomiting or diarrhea. Patient reports she feels anxious patient reports she has had a brain MRI in the past which showed Chiari malformation. Patient reports she called her on-call neurologist and made them aware she was itchy. They reported they would address her medications on Friday when she gets her MRI. Patient denies any nosebleeds. Patient deniessick contacts. History provided by: Patient Alan Coma Scale Score: 15 Patient History Past Medical History: Diagnosis Date Trigeminal neuralgia Past Surgical History: Procedure Laterality Date HYSTEROSCOPY TONSILLECTOMY Family History Problem Relation Name Age of Onset Anxiety disorder Mother Tania Arthritis Mother Tania Depression Mother Tania Alcohol abuse Father Jose Miguel Cancer Father Jose Miguel Alcohol abuse Sister Kasie Anxiety disorder Sister Kasie Arthritis Mother's Sister Leann Arthritis Mother's Brother Russell Arthritis Mother's Sister Emily Social History Tobacco Use Smoking status: Former Packs/day: 0.50 Years: 15.00 Additional pack years: 0.00 Total pack years: 7.50 Types: Cigarettes Start date: 11/24/2008 Smokeless tobacco: Never Vaping Use Vaping Use: Never used Substance Use Topics Alcohol use: Not Currently Comment: Maybe 2 or 3 times a year Drug use: Not Currently Frequency: 2.0 times per week Types: Marijuana Review of Systems Review of Systems Constitutional: Negative for chills, fatigue and fever. HENT: Positive for rhinorrhea and sore throat. Negative for ear pain, trouble swallowing and voice change. Eyes: Negative for pain and visual disturbance. Respiratory: Positive for cough. Negative for chest tightness, shortness of breath and wheezing. Cardiovascular: Negative for chest pain, palpitations and leg swelling. Gastrointestinal: Negative for abdominal pain, blood in stool, diarrhea, nausea and vomiting. Genitourinary: Negative for dysuria, flank pain and hematuria. Musculoskeletal: Negative for arthralgias and back pain. Skin: Negative for color change and rash. Neurological: Negative for dizziness, seizures, syncope, facial asymmetry, speech difficulty, weakness, light-headedness, numbness and headaches. trigeminal neuralgia pain and facial intermittent numbness is unchanged. Psychiatric/Behavioral : Negative for confusion. All other systems reviewed and are negative. Physical Exam ED Triage Vitals [09/26/24 0654] Temp Heart Rate Resp BP 36.9 ???C (98.5 ???F) 72 16 (!) 154/107 SpO2 Temp Source Heart Rate Source Patient Position 100 % Temporal Monitor Sitting BP Location FiO2 (%) Left arm -- Physical Exam Vitals reviewed. Constitutional: General: She is not in acute distress. Appearance: Normal appearance. She is not ill-appearing, toxic-appearing or diaphoretic. Comments: Alert and oriented x 4 very anxious speaking in very long full sentences no stridor no drooling swallowing secretions without difficulty no hoarse voice HENT: Head: Normocephalic and atraumatic. Right Ear: Tympanic membrane, ear canal and external ear normal. Left Ear: Tympanic membrane, ear canal and external ear normal. Nose: Nose normal. No congestion or rhinorrhea. Mouth/Throat: Mouth: Mucous membranes are moist. Pharynx: Oropharynx is clear. Posterior oropharyngeal erythema present. No oropharyngeal exudate. Comments: Posterior oropharynx is erythematous uvula is midline. Patient does have posterior pharyngeal cobblestoning. No stridor no drooling swallowing secretions without difficulty no elevation at the base of the tongue no submental or submandibular swelling. Eyes: General: No scleral icterus. Right eye: No discharge. Left eye: No discharge. Extraocular Movements: Extraocular movements intact. Conjunctiva/sclera: Conjunctivae normal. Pupils: Pupils are equal, round, and reactive to light. Neck: Comments: Shotty anterior cervical lymphadenopathy posterior auricular anterior cervical chain all less than 1 cm, freely movable. Trachea is midline no JVD no meningeal signs. No submental or submandibular swelling. Cardiovascular: Rate and Rhythm: Normal (more content not included)... Normal [facility] MONONUCLEOSIS SCREENon 09-26 HETEROPHILE ANTIBODIES Negative Normal Negative [facility] Comment on above: Performed By: #### L [id number] #### [facility] [address] [place] [address] Office Visiton 09-23-2024 Follow-up visit [id number] Philomena NATARAJAN 1990 F Date Provider Department Center 09/23/2024 [id number] MARIE HADDAD [facility] Mona Collins Family History Problem Relation Age of Onset Anxiety disorder Mother Arthritis Mother Depression Mother Alcohol abuse Father Cancer Father Alcohol abuse Sister Anxiety disorder Sister Arthritis Mother's Sister Arthritis Mother's Brother Arthritis Mother's Sister Family Status - Relation Status Age at Mother Father Sister Mother's Sister Mother's Brother Mother's Sister Level of Service:60323 [place] OFFICE/OUTPATIENT ESTABLISHED MOD MDM 30 MIN Reason for Visit and Comments: lymphnode [Other] - Patient states she has swollen lymphnode around jaw/ neck within the past couple days. Right side of abdomen gets tingly and numb. She was dx with Trigeminal neuralgia earlier August. Verified by her neurology. MRI on Friday of head. Normal [facility] MR BRAIN W AND WO CONTRAST ( ROUTINE)on 09-13-2024 MR BRAIN W AND WO CONTRAST (ROUTINE) EXAM: MRI Brain/IACs with and without Contrast: REASON FOR EXAM: Right-sided jaw pain and swelling; right-sided forehead, cheek and tongue numbness; right-sided tinnitus and hearing loss. COMPARISON: MR -05/13/2024. CT angio neck 09/06/2024. TECHNIQUE: Axial diffusion, sagittal T1, coronal T1, axial T1, axial T2, axial FLAIR, axial gradient echo, axial T1 postcontrast images of the brain; axial T2, coronal T2, coronal T1, axial T1, coronal T1 fat-suppressed postcontrast, axial T1 fat-suppressed postcontrast images of the IACs obtained. CONTRAST: 10 mL of Vueway administered IV without reported complication. FINDINGS: Brain: There is no intracranial hemorrhage, mass, infarct, midline shift, hydrocephalus, extra-axial mass effect. The ventricles and sulci are symmetric. The rossi-white interface is preserved. The vascular flow voids are normal. IACs: The internal auditory canals, sella turcica, Meckel's caves are normal. The cavernous sinuses are normal. Sella turcica is not enlarged. The infundibulum is not displaced. There are no cerebellopontine angle masses or mass effect. No abnormal enhancement. The paranasal sinuses and mastoid air cells are without fluid or mucosal thickening. The orbits are intact. Scattered upper cervical lymph nodes are present, nonspecific. The largest on the left measures approximately 6 mm in greatest short axis dimension. The largest on the right approximately 9 to 10 mm in dimension. Multiple asymmetries in the parotid glands bilaterally and symmetrically with enhancing components -- posteriorly on the right measuring approximately 7.5 mm, posteroinferiorly on the left measuring 9.6 mm. IMPRESSION, MRI Brain: No MRI evidence of acute hemorrhage, mass, infarct. No acute abnormalities. IMPRESSION, MRI Trigeminal: 1. No abnormalities of the cerebellopontine angles. No abnormal enhancement or mass lesion along the course of the trigeminal nerve by MRI. 2. Multifocal bilateral small cervical lymph nodes and parotid enhancing lesions, bilateral, nonspecific. ENT consultation is recommended. These may be infectious, inflammatory or less likely malignant. This report is generated using voice recognition reporting ([employer]). On occasion, [employer] erroneously drops words from the report or replaces the spoken word with a similar sounding word. Please call with any questions/concerns regarding the report. Dictated and transcribed 09/27/2024/doug This report has been electronically signed and approved by the interpreting radiologist. Normal Not Available IGP,APTIMA HPV,AGE GDLNon AGE GDLN ACOG TESTING Note . [facility] Comment on above: TESTS RESULT FLAG UN ITS REF RANGE LAB Clinician Provided Cytology Information Source.............Cervix;Endocervix No. of containers..01 ThinPrep Vial Age Verna ARNOLD Carmen... 29 FLAG LEGEND: L-Low Normal,H-High Normal,LL-Alert Low,HH-Alert High <-Panic Low,>-Panic High,A-Abnormal,AA-Critical Abnormal Performed at: 01 =G [address] [place] [address] Kiesha Monroe MD, HPV APTIMA Negative Negative [facility] Comment on above: This nucleic acid am plification test detects fourteen high- risk HPV types (16,18,31,33,35,39,45,51,52,56,58,59,66,68) without differentiation. Performed at: =G - [facility] [id number] [place] Folder: Kiesha Monroe MD, Phone: [phone] Performed at: - [address] [id number] [place] Folder: Kiesha Monroe MD, Phone: [phone] IGP, APTIMA HPV, RFX 16/18,45 Note . [facility] Comment on above: TESTS RESULT FLAG UN ITS REF RANGE LAB DIAGNOSIS: 02 NEGATIVE FOR INTRAEPITHELIAL LESION OR MALIGNANCY. Specimen adequacy: 02 Satisfactory for evaluation. Endocervical and/or squamous metaplastic cells (endocervical component) are present. Performed by: 02 Samantha Garcia, Coach Operator ([facility]) . 02 Note: Note 02 The Pap smear is a screening test designed to aid in the detection of premalignant and malignant conditions of the uterine cervix. It is not a diagnostic procedure and should not be used as the sole means of detecting cervical cancer. Both false-positive and false-negative reports do occur. Test Methodology: Note 02 The Gram[employer](R) Power Manager was unable to read this specimen. Therefore a manual review was performed. FLAG LEGEND: L-Low Normal,H-High Normal,LL-Alert Low,HH-Alert High <-Panic Low,>-Panic High,A-Abnormal,AA-Critical Abnormal Performed at: [address] [address] Kiesha Monroe MD, HPV Genotype Reflex Note 02 Criteria not met, HPV Genotype not performed. Criteria not met, HPV Genotype not performed. BRUSH-SPATULA CERVIX ENDOCERVIX [facility] ALL CBC WITH AUTO DIFFon BASOPHILS ABSOLUTE AUTO 0.0 [facility] Basophils/100 WBC (Bld) 0.6 % 0.2 - 2.0 % [facility] Eosinophils/100 WBC (Bld) 3.2 % 0.9 - 7.0 % [facility] Erythrocyte distribution width (RBC) [Ratio] 12.8 % 11.0 - 15.0 % [facility] Hematocrit (Bld) [Volume fraction] 38.3 % 36.0 - 48.0 % [facility] Hemoglobin (Bld) [Mass/Vol] 12.9 g/dL 12.0 - 16.0 g/dL [facility] IMMATURE GRANULOCYTES ABS AUTO 0.02 [facility] Immature granulocytes/100 WBC (Bld) 0.3 % 0.0 - 0.5 % [facility] LYMPHOCYTES ABSOLUTE AUTO 1.7 [facility] Lymphocytes/100 WBC (Bld) 24.0 % 20.5 - 60.0 % [facility] MCH (RBC) [Entitic mass] 29.4 pg 26.7 - 34.0 pg [facility] MCHC (RBC) [Mass/Vol] 33.7 g/dL 29.9 - 35.2 g/dL [facility] MCV (RBC) [Entitic vol] 87.2 fL 81.0 - 99.0 fL [facility] MONOCYTES ABSOLUTE AUTO 0.4 [facility] Monocytes/100 WBC (Bld) 6.1 % 1.7 - 12.0 % [facility] NEUTROPHILS ABSOLUTE AUTO 4.8 [facility] Neutrophils/100 WBC (Bld) 65.8 % 43.0 - 75.0 % [facility] Platelet mean volume (Bld) [Entitic vol] 11.1 fL 9.5 - 13.5 fL [facility] TBH EO # 0.2 [facility]H PLT 256 [facility] RBC 4.39 [facility] WBC 7.2 [facility] XR pre/post mri xrayon 08-10 XR pre/post mri xray [facility] [place] [address] MRI Report Signed Patient: Kierra Natarajan MR#: [id number] 35 : 1990 Acct:[id number] Age/Sex: 33 / F ADM Date: 08/10/24 Loc: Room: Type: [facility] Attending Dr: Ro MAGDALENO Copies to: RASTA Arzola Ordering Provider: RASTA Arzola Date of Service: 08/10/24 MR/MR lumbar spine wo con: R26.9, M54.50, N39.489, R20.0 ([id number]) XR/XR pre/post mri xray: R26.9, M54.50, N39.489, [...] Eben Morel M.D.08/10/2024 8:33 AM Dictation Location: [place] [address] Transcribed By: [facility] 08/10/24 0833 Dictated By: Eben Morel DO 08/10/24 0828 Signed By: 08/10/24 0833 Normal [facility] MR cervical spine wo conon 0 06-25-2024 MR cervical spine wo con [facility] Main [place] [address] [place] [address] MRI Report Signed Patient: Kierra Natarajan MR#: [id number] 35 : 1990 Acct:[id number] Age/Sex: 33 / F ADM Date: 06/25/24 Loc: MR Room: Type: [facility] Attending Dr: Ro Patel Adult [employer] Copies to: Ro Patel, RASTA Galvan Ordering [...] STENOSIS. Impression dictated by: Tony Yung Jr., D.O.06/25/2024 6:59 PM Dictation Location: [place] [address] Transcribed By: [facility] 06/25/241858 Dictated By: Tony Yung Jr, DO 06/25/241852 Signed By: 06/25/241858 Normal [facility] Folate [Mass/Vol]on 05-31-20 FOLIC ACID 15.0 ng/mL Normal >5.8 [facility] Comment on above: Result Comment: NEW REFERENCE RANGE Performed By: #### 3 016-3, 2284-8, 2132-9, 91022-6 #### [facility] ([id number]) [address] [place] [address], [address] [place] [id number] #### 75910-9 #### [facility] ([id number]) [address] [place] [address] Methylmalonate [Moles/Vol]on 05-31-2024 Methylmalonic Acid, QN, P 0.15 nmol/mL Normal <=0.40 [facility] Comment on above: Result Comment: NOTE ADDITIONAL INFORMATION This test was developed and its performance characteristics determined by [facility] in a manner consistent with CLIA requirements. This test has not been cleared or approved by the U.S. Food and Drug Administration. Test Performed by: [place] [id number] [place] Folder: Michele Lee Ph.D.; CLIA# [id number] Performed By: #### 3 016-3, 2284-8, 9, 18964-8 #### [facility] ([id number]) [address] [facility], [address] [place] [address] #### 58594-0 #### [facility] ([id number]) [address] [place] [address] TSH Qnon 05-31-2024 TSH 2.81 uIU/mL Normal 0.49-4.67 [facility] Comment on above: Performed By: #### 3 016-3, 2284-8, 9, 24762-7 #### [facility] ([id number]) [address] [facility] [facility], [address] [place] [address] #### 82484-0 #### [facility] ([id number]) [address] [place] [address] VITAMIN B12on 05-31-2024 Cobalamin (Vitamin B12) [Mass/Vol] 297 pg/mL Normal 180-914 [facility] Comment on above: Performed By: #### 3 016-3, 2284-8, 9, 41919-3 #### [facility] ([id number]) [address], [address] [place] [address] #### 76875-7 #### [facility] ([id number]) [address] [place] [address] Vitamin D+Metabolites [Mass/ Vol]on 05-31-2024 VITAMIN D 25 HYD TOT 27.9 ng/mL Low 30-100 [facility] Comment on above: Result Comment: Vitamin D status 25 [place] Vitamin D Deficiency <20 ng/mL Insufficiency 20-29 ng/mL Sufficiency 30-100 ng/mL Toxicity >100 ng/mL NOTE: A pediatric reference range has not been established by the air chipper of this kit. The [place] [employer] recommends a Vitamin D level of = or >20ng/mL in infants and children. Performed By: #### 3 016-3, 2284-8, 9, 96227-2 #### [facility] ([id number]) [address], [address] [place] [address] #### 11477-1 #### [facility] ([id number]) [address] [place] [address] MR BRAIN W AND WO CONTRAST ( [...] BY: Abner Ramirez, DO Normal Not Available WILMA EIA W/REFLEX 9 BIOMARKER Son 03-05-2023 WILMA Direct Negative Normal Negative [facility] Comment on above: Performed By: #### A NARF9 #### [facility] [address] [place] [address] Dr. Altagracia Allen C-REACTIVE PROTEINS (HS)on 0 03-05-2023 C-Reactive Protein, Cardiac 2.96 mg/L Normal 0.00-3.00 [facility] Comment on above: Result Comment: Rela tive Risk for Future Cardiovascular Event Low <1.00 Average 1.00 - 3.00 High >3.00 Performed By: #### C RPHS #### [facility] [address] [place] [address] Dr. Altagracia Allen CYCLIC CITRULLINATED PEPTIDE AB (CCP)on 03-05-2023 CCP Antibodies IgG/IgA 4 units Normal 0-19 [facility] Comment on above: Result Comment: Nega tive <20 Weak positive 20 - 39 Moderate positive 40 - 59 Strong positive >59 Performed By: #### C CPAB #### [facility] [address] [place] [address] Dr. Altagracia Allen HIV 1 AND 2 WITH REFLEXon HIV Screen 4th Generation wRfx Non-Reactive Normal Non Reactive [facility] Comment on above: Result Comment: HIV Negative HIV-1/HIV-2 antibodies and HIV-1 p24 antigen were NOT detected. There is no laboratory evidence of HIV infection. Performed By: #### H IV12 #### [facility] [address] [place] [address] [address] Altagracia Allen MRI TSPINE WO CONon 03-05-20 MRI TSPINE WO CON EXAMINATION: MRI TSPINE [...] ERMELINDA PAIGE Date: 2023-03-05 14:38 Normal [facility] RHEUMATOID FACTORon 03-05-20 RA Latex Turbid. <10.0 Normal <14.0 [facility] Comment on above: Performed By: #### R F ####[facility] [address] [place] [address]Dr. Altagracia Allen SED RATE [facility] 2022 SED RATE 14 mm/hr Normal <=20 [facility] Comment on above: Performed By: #### S EDR #### [facility] [address] [place] [address] [address] Altagracia Allen HEMOGRAM AND PLATELon 2022 Hematocrit (Bld) [Volume fraction] 40.0 % Normal 36.0-48.0 [facility] Comment on above: Performed By: #### H H ####[facility] [address] [place] [address]Dr. Altagracia Allen Hemoglobin (Bld) [Mass/Vol] 13.5 g/dL Normal 12.0-16.0 [facility] Comment on above: Performed By: #### H H ####[facility] [address] [place] [address]Dr. Altagracia Allen MCH (RBC) [Entitic mass] 28.5 pg Normal 26.7-34.0 [facility] Comment on above: Performed By: #### H H ####[facility] [address] [place] [address]Dr. Altagracia Allen MCHC (RBC) [Mass/Vol] 33.8 g/dL Normal 29.9-35.2 [facility] Comment on above: Performed By: #### H H ####[facility] [address] [place] [id number]. Altagracia Allen MCV (RBC) [Entitic vol] 84.6 fL Normal 81.0-99.0 [facility] Comment on above: Performed By: #### H H ####[facility] [address] [place] [id number]. Altagracia Allen PLT 271 103/ul Normal 150-450 [facility] Comment on above: Performed By: #### H H ####[facility] [address] [place] [id number]. Altagracia Allen RBC 4.73 106/ul Normal 4.20-5.40 [facility] Comment on above: Performed By: #### H H ####[facility] [address] [place] [id number]. Altagracia Allen WBC 8.0 103/ul Normal 4.0-11.0 [facility] Comment on above: Performed By: #### H H ####[facility] [address] [place] [id number]. Altagracia Allen LIPID PROFILEon 02-25-2023 CHOL-HDL RATIO NORM SEE BELOW Normal [facility] Comment on above: Result Comment: 3.3 - 4.4 LOW RISK 4.4 - 7.1 AVERAGE RISK 7.1 - 11.0 MODERATE RISK >11.0 HIGH RISK Performed By: #### L IPID, TSHRFT4, CMP #### [facility] [address] [place], [place] [address] Dr. Altagracia Allen Cholesterol [Mass/Vol] 175 mg/dL Normal <=200 [facility] Comment on above: Performed By: #### L IPID, TSHRFT4, CMP #### [facility] [address] [place] [address] [address] Altagracia Allen Cholesterol in HDL [Mass/Vol] 29 mg/dL Critically low 40-60 [facility] Comment on above: Performed By: #### L IPID, TSHRFT4, CMP #### [facility] [address] [place] [address] [address] Altagracia Allen Cholesterol in LDL [Mass/Vol] 127.2 mg/dL Normal [facility] Comment on above: Performed By: #### L IPID, TSHRFT4, CMP #### [facility] [address] [place] [address] [address] Altagracia Allen Cholesterol.total/Cho lesterol in HDL [Mass ratio] 6.0 {ratio} Normal [facility] Comment on above: Performed By: #### L IPID, TSHRFT4, CMP #### [facility] [address] [place] [address] [address] Altagracia Allen HDL NORMAL > or = 60 mg/dl - LO W CARDIOVASCULAR RISK <40 mg/dl - HIGH CARDIOVASCULAR RISK Normal [facility] Comment on above: Performed By: #### L IPID, TSHRFT4, CMP #### [facility] [address] [place] [address] [address] Altagracia Allen LDL CALC NORMAL SEE BELOW Normal [facility] Comment on above: Result Comment: <100 mg/dl OPTIMAL 100 - 129 mg/dl NEAR OR ABOVE OPTIMAL 130 - 159 mg/dl BORDERLINE HIGH 160 - 189 mg/dl HIGH >190 mg/dl VERY HIGH Performed By: #### L IPID, TSHRFT4, CMP #### [facility] [address] [place] [address] [address] Altagracia Allen Triglyceride [Mass/Vol] 94 mg/dL Normal <=150 [facility] Comment on above: Performed By: #### L IPID, TSHRFT4, CMP #### [facility] [address] [place] [address] [address] Altagracia Aleln VLDL CALC 18.8 mg/dL Normal [facility] Comment on above: Performed By: #### L IPID, TSHRFT4, CMP #### [facility] [address] [place] [address] Dr. Altagracia Allen PROF 14(COMP METB)on 023 Albumin [Mass/Vol] 3.6 g/dL Normal 3.4-5.0 [facility] Comment on above: Performed By: #### L IPID, TSHRFT4, CMP #### [facility] [address] [place] [address] Dr. Altagracia Allen Albumin/Globulin [Mass ratio] 1.1 {ratio} Normal [facility] Comment on above: Performed By: #### L IPID, TSHRFT4, CMP #### [facility] [address] [place] [address] Dr. Altagracia Allen ALP [Catalytic activity/Vol] 72 U/L Normal 46-116 [facility] Comment on above: Performed By: #### L IPID, TSHRFT4, CMP #### [facility] [address] [place] [address] Dr. Altagracia Allen ALT [Catalytic activity/Vol] 27 U/L Normal 14-59 [facility] Comment on above: Performed By: #### L IPID, TSHRFT4, CMP #### [facility] [address] [place] [address] Dr. Altagracia Allen Anion gap [Moles/Vol] 13.8 mmol/L Normal [facility] Comment on above: Performed By: #### L IPID, TSHRFT4, CMP #### [facility] [address] [place] [address] Dr. Altagracia Allen AST [Catalytic activity/Vol] 17 U/L Normal 15-37 [facility] Comment on above: Performed By: #### L IPID, TSHRFT4, CMP #### [facility] [address] [place] [address] Dr. Altagracia Allen Bilirubin [Mass/Vol] 0.2 mg/dL Normal 0.2-1.0 [facility] Comment on above: Performed By: #### L IPID, TSHRFT4, CMP #### [facility] [address] [address] [address] Altagracia Allen Calcium [Mass/Vol] 8.6 mg/dL Normal 8.5-10.1 [facility] Comment on above: Performed By: #### L IPID, TSHRFT4, CMP #### [facility] [address] [place] [address] Dr. Altagracia Allen Chloride [Moles/Vol] 106 mmol/L Normal 98-107 [facility] Comment on above: Performed By: #### L IPID, TSHRFT4, CMP #### [facility] [address] [place] [address] Dr. Altagracia Allen CO2 [Moles/Vol] 23.7 mmol/L Normal 21.0-32.0 [facility] Comment on above: Performed By: #### L IPID, TSHRFT4, CMP #### [facility] [address] [place] [address] Dr. Altagracia Allen Creatinine [Mass/Vol] 0.76 mg/dL Normal 0.55-1.02 [facility] Comment on above: Performed By: #### L IPID, TSHRFT4, CMP #### [facility] [address] [place] [address] Dr. Altagracia Allen EGFR-AF WALLISIAN >60 Normal >=60 [facility] Comment on above: Performed By: #### L IPID, TSHRFT4, CMP #### [facility] [address] [place] [address] Dr. Altagracia Allen EGFR-NON AF WALLISIAN >60 Normal >=60 [facility] Comment on above: Performed By: #### L IPID, TSHRFT4, CMP #### [facility] [address] [place] [address] Dr. Altagracia Allen Globulin (S) [Mass/Vol] 3.4 g/dL Normal [facility] Comment on above: Performed By: #### L IPID, TSHRFT4, CMP #### [facility] [address] [place] [address] Dr. Altagracia Allen Glucose [Mass/Vol] 92 mg/dL Normal 74-106 [facility] Comment on above: Performed By: #### L IPID, TSHRFT4, CMP #### [facility] [address] [place] [address] Dr. Altagracia Allen Potassium [Moles/Vol] 3.5 mmol/L Normal 3.5-5.1 [facility] Comment on above: Performed By: #### L IPID, TSHRFT4, CMP #### [facility] [address] [place] [address] Dr. Altagracia Allen Protein [Mass/Vol] 7.0 g/dL Normal 6.4-8.2 [facility] Comment on above: Performed By: #### L IPID, TSHRFT4, CMP #### [facility] [address] [place] [address] Dr. Altagracia Allen Sodium [Moles/Vol] 140 mmol/L Normal 136-145 [facility] Comment on above: Performed By: #### L IPID, TSHRFT4, CMP #### [facility] [address] [place] [address] Dr. Altagracia Allen Urea nitrogen [Mass/Vol] 13.0 mg/dL Normal 7.0-18.0 [facility] Comment on above: Performed By: #### L IPID, TSHRFT4, CMP #### [facility] [address] [place] [address] Dr. Altagracia Allen Urea nitrogen/Creatinine [Mass ratio] 17.1 mg/mg Normal [facility] Comment on above: Performed By: #### L IPID, TSHRFT4, CMP #### [facility] [address] [place] [address] Dr. Altagracia Allen TSH W/ REFLEX TO FT4on 02-25 TSH 2.830 uIU/mL Normal 0.358-3.740 [facility] Comment on above: Performed By: #### L IPID, TSHRFT4, CMP #### [facility] [address] [place] [address] Dr. Altagracia Allen XR TSPINE 3 VIEWSon 02-15-20 XR TSPINE 3 VIEWS EXAMINATION: XR TSPI [...] ERMELINDA PAIGE Date: 2023-02-14 07:59 Normal [facility] CBC W/DIFFon 01-23-2021 ABS BASOPHILS 0.1 10*3/uL Normal 0.0-0.2 [facility] Comment on above: Performed By: #### 5 0103 #### [facility] [address] ABS IMM GRANS 0.0 10*3/uL Normal 0.0-0.2 [facility] Comment on above: Performed By: #### 5 0103 #### [facility] [address] ABS NEUTROPHILS 4.9 10*3/uL Normal 1.6-7.6 The [facility] Comment on above: Performed By: #### 5 0103 #### [facility] [address] Basophils/100 WBC (Bld) 0.7 % Normal 0.0-1.0 [facility] Comment on above: Performed By: #### 5 0103 #### [facility] [address] [place] [address], [facility] Eosinophils (Bld) [#/Vol] 0.3 10*3/uL Normal 0.0-0.5 [facility] Comment on above: Performed By: #### 5 0103 #### [facility] [address] [place] [address], [facility] Eosinophils/100 WBC (Bld) 3.6 % Normal 0.0-6.0 [facility] Comment on above: Performed By: #### 5 0103 #### [facility] [address] [facility] [address] Erythrocyte distribution width (RBC) [Ratio] 13.2 % Normal 11.5-15.0 [facility] Comment on above: Performed By: #### 5 0103 #### [facility] [address] [facility] Hematocrit (Bld) [Volume fraction] 44.2 % Normal 36.0-45.0 [facility] Comment on above: Performed By: #### 5 0103 #### [facility] [address] Hemoglobin (Bld) [Mass/Vol] 14.4 g/dL Normal 12.0-15.0 [facility] Comment on above: Performed By: #### 5 0103 #### [facility] [address] IMMATURE GRANS 0.4 % Normal 0.0-1.0 [facility] Comment on above: Performed By: #### 5 0103 #### [facility] 3000 [facility] [address], [facility] Lymphocytes (Bld) [#/Vol] 1.8 10*3/uL Normal 1.2-4.0 [facility] Comment on above: Performed By: #### 5 0103 #### [facility] [address] [place] [address], [facility] Lymphocytes/100 WBC (Bld) 23.3 % Normal 20.0-45.0 [facility] Comment on above: Performed By: #### 5 0103 #### [facility] [address] [facility] [place] [address], [facility] MCH (RBC) [Entitic mass] 29.1 pg Normal 27.0-33.0 [facility] Comment on above: Performed By: #### 5 0103 #### [facility] [address] [facility] [address] MCHC (RBC) [Mass/Vol] 32.6 g/dL Normal 32.0-35.0 [facility] Comment on above: Performed By: #### 5 0103 #### [facility] [address] [facility] [place] [address], [facility] MCV (RBC) [Entitic vol] 89.3 fL Normal 82.0-98.0 [facility] Comment on above: Performed By: #### 5 0103 #### [facility] [address] [facility] [place] [address], [facility] Monocytes (Bld) [#/Vol] 0.6 10*3/uL Normal 0.1-1.0 [facility] Comment on above: Performed By: #### 5 0103 #### [facility] [address] [facility] [address], [facility] MONOS 7.6 % Normal 5.0-12.0 [facility] Comment on above: Performed By: #### 5 0103 #### [facility] [address] [facility] [address] Neutrophils/100 WBC (Bld) 64.4 % Normal 40.0-72.0 [facility] Comment on above: Performed By: #### 5 0103 #### [facility] [address] [facility] [place] [address], [facility] Nucleated RBC/100 WBC (Bld) [Ratio] 0 % Normal 0-0 [facility] Comment on above: Performed By: #### 5 3 #### [facility] [address] [place] [address], [facility] PLAT CNT 264 10*3/uL Normal 150-400 [facility] Comment on above: Performed By: #### 5 0103 #### [facility] [address] [place] [address], [facility] RBC (Bld) [#/Vol] 4.95 10*6/uL Normal 3.80-5.00 [facility] Comment on above: Performed By: #### 5 0103 #### [facility] [address] [place] [address], [facility] WBC (Bld) [#/Vol] 7.59 10*3/uL Normal 4.00-10.60 [facility] Comment on above: Performed By: #### 5 0103 #### [facility] [address] [place] [address], [facility] COMP METABOLIC PANELon 01-23 Albumin [Mass/Vol] 4.4 g/dL Normal 3.5-5.7 [facility] Comment on above: Performed By: #### 4 6413, 47887, 65314 #### [facility] [address] [place] [address], [facility] ALKALINE PHOSPH 64 IU/L Normal 34-104 [facility] Comment on above: Performed By: #### 4 6413, 59300, 81408 #### [facility] [address] [place] [address], [facility] ALT [Catalytic activity/Vol] 13 U/L Normal 7-52 [facility] Comment on above: Performed By: #### 4 6413, 56132, 83571 #### [facility] [address] [place] [address], [facility] AST [Catalytic activity/Vol] 14 U/L Normal 13-39 [facility] Comment on above: Performed By: #### 4 6413, 31294, 35749 #### [facility] [address] [place] [address], [place] Bilirubin [Mass/Vol] 0.4 mg/dL Normal 0.3-1.0 [facility] Comment on above: Performed By: #### 4 6413, 47228, 56090 #### [facility] [address] [place] [address], [place] Calcium [Mass/Vol] 9.2 mg/dL Normal 8.6-10.3 [facility] Comment on above: Performed By: #### 4 6413, 30014, 72424 #### [facility] [address] [place] [address], [place] Chloride [Moles/Vol] 105 mmol/L Normal 98-107 [facility] Comment on above: Performed By: #### 4 6413, 89241, 87627 #### [facility] [address] [place] [address], [place] CO2 [Moles/Vol] 28 mmol/L Normal 21-31 [facility] Comment on above: Performed By: #### 4 6413, 21203, 10663 #### [facility] [address] [place] [address], [place] Creatinine [Mass/Vol] 0.90 mg/dL Normal 0.60-1.20 [facility] Comment on above: Performed By: #### 4 6413, 46731, 20534 #### [facility] [address] [place] [address], [place] GFR/1.73 sq M predicted among blacks MDRD (S/P/Bld) [Vol rate/Area] mL/min/{1.73_m2} Normal >60 [facility] Comment on above: Performed By: #### 4 6413, 33290, 76548 #### [facility] [address] [place] [address], [place] GFR/1.73 sq M predicted among non-blacks MDRD (S/P/Bld) [Vol rate/Area] mL/min/{1.73_m2} Normal >60 [facility] Comment on above: Performed By: #### 4 6413, 30942, 50590 #### [facility] [address] [place] [address], [place] Glucose [Mass/Vol] 86 mg/dL Normal 70-100 [facility] Comment on above: Performed By: #### 4 6413, 97540, 05482 #### [facility] [address] [place] [address], [place] Potassium [Moles/Vol] 3.9 mmol/L Normal 3.5-5.1 [facility] Comment on above: Performed By: #### 4 6413, 56637, 41478 #### [facility] [address] [place] [address], [place] Protein [Mass/Vol] 7.1 g/dL Normal 6.0-8.3 [facility] Comment on above: Performed By: #### 4 6413, 63310, 16121 #### [facility] [address] [place] [address], [place] Sodium [Moles/Vol] 138 mmol/L Normal 136-145 [facility] Comment on above: Performed By: #### 4 6413, 29942, 09552 #### [facility] [address] [place] [address], [place] Urea nitrogen [Mass/Vol] 11 mg/dL Normal 7-25 [facility] Comment on above: Performed By: #### 4 6413, 27877, 84444 #### [facility] [address] [place] [address], [place] LIPID PROFILEon 01-23-2021 Cholesterol [Mass/Vol] 162 mg/dL Normal 120-200 [facility] Comment on above: Result Comment: CHOL ESTEROL REFERENCE RANGE: 20 YEARS AND OLDER CARDIOVASCULAR RISK Less than 200 mg/dl Low Risk 200 to 239 mg/dl Borderline Risk 240 mg/dl and greater High Risk Performed By: #### 4 6413, 23192, 05965 #### [facility] [address] [place] [address], [place] Cholesterol in HDL [Mass/Vol] 38 mg/dL Normal 23-92 [facility] Comment on above: Result Comment: Slig ht variation in normal range could be due to gender and/or age. HDL CHOLESTEROL REFERENCE RANGE: 20 years and older Cardiovascular Risk > or =60 mg/dL Desirable 40 TO 59 mg/dL Low Risk <40 mg/dL High Risk Performed By: #### 4 6413, 13951, 18181 #### [facility] [address] [place] [address], [place] Cholesterol in LDL [Mass/Vol] 111 mg/dL Normal 0-130 [facility] Comment on above: Result Comment: LDL IS A CALCULATION LDL IS ONLY VALID IF THE TRIG IS LESS THAN 400. Performed By: #### 4 6413, 98210, 81523 #### [facility] [address] [place] [address], [place] Cholesterol.total/Cho lesterol in HDL [Mass ratio] 4.3 {ratio} Normal 0.0-4.5 [facility] Comment on above: Performed By: #### 4 6413, 20796, 81218 #### [facility] [address] [place] [address], [place] NON-HDL CHOLESTEROL 124 mg/dL Normal [facility] Comment on above: Performed By: #### 4 6413, 58215, 16093 #### [facility] [address] [place] [address], [place] Triglyceride [Mass/Vol] 66 mg/dL Normal 40-149 [facility] Comment on above: Result Comment: TRIG LYCERIDE REFERENCE RANGE: 20 YEARS AND OLDER CARDIOVASCULAR RISK LESS THAN 150 mg/dl LOW RISK 150 TO 199 mg/dl BORDERLINE RISK 200 mg/dl AND GREATER HIGH RISK Performed By: #### 4 6413, 01607, 92663 #### [facility] [address] [place] [address], [facility] VLDL CHOL 13 mg/dL Normal 0-40 [facility] Comment on above: Performed By: #### 4 6413, 91616, 84410 #### [facility] [address] [place], [place] [id number] [place] [address] TSH3 WITH REFLEX FT4on 01-23 TSH 3RD GENERATION 1.73 uIU/mL Normal 0.34-5.60 [facility] Comment on above: Performed By: #### 4 6413, 11839, 36093 #### [facility] [address] Vital Signs Date Time Vital Sign Value Performing Clinician Gabi zuñiga 10-01-2024 08:25-0500 Body height 175.3 cm Sudheer Chacon MD Work Phone: [facility] 10-01-2024 08:25-0500 Body mass index (BMI) [Ratio] 35.59 kg/m2 Sudheer Chacon MD Work Phone: [facility] 10-01-2024 08:25-0500 Body weight 109.32 kg Sudheer Chacon MD Work Phone: [facility] 10-01-2024 08:25-0500 Diastolic blood pressure 80 mm[Hg] Sudheer Chacon MD Work Phone: [facility] 10-01-2024 08:25-0500 Systolic blood pressure 121 mm[Hg] Sudheer Chacon MD Work Phone: [facility] 09-17-2024 09:49-0400 Body height 175.3 cm Sudheer Chacon MD Work Phone: [facility] 09-17-2024 09:49-0400 Body mass index (BMI) [Ratio] 35.15 kg/m2 Sudheer Chacon MD Work Phone: [facility] 09-17-2024 09:49-0400 Body weight 107.96 kg Sudheer Chacon MD Work Phone: [facility] 09-17-2024 09:49-0400 Diastolic blood pressure 88 mm[Hg] Sudheer Chacon MD Work Phone: [facility] 09-17-2024 09:49-0400 Systolic blood pressure 137 mm[Hg] Sudheer Chacon MD Work Phone: [facility] 09-13-2024 13:39-0400 Body height 172.7 cm Ro Patel [employer] Work Phone: [facility] 09-13-2024 13:39-0400 Body mass index (BMI) [Ratio] 35.81 kg/m2 Ro Johnsonnagel [employer] Work Phone: [facility] 09-13-2024 13:39-0400 Body weight 106.82 kg Ro Guzmangel [employer] Work Phone: [facility] 09-13-2024 13:39-0400 Diastolic blood pressure 78 mm[Hg] Ro Alexnagel [employer] Work Phone: [facility] 09-13-2024 13:39-0400 Heart rate 78 /min Ro Thomasgel [employer] Work Phone: [facility] 09-13-2024 13:39-0400 Systolic blood pressure 133 mm[Hg] Ro Alexnagel [employer] Work Phone: [facility] 09-08-2024 10:53-0400 Body mass index (BMI) [Ratio] 36.31 kg/m2 Jeremy Addie DO Work Phone: [facility] 09-08-2024 10:53-0400 Body weight 108.32 kg Jeremy Addie DO Work Phone: [facility] 09-08-2024 10:53-0400 Diastolic blood pressure 70 mm[Hg] Jeremy Addie DO Work Phone: [facility] 09-08-2024 10:53-0400 Systolic blood pressure 120 mm[Hg] Jeremy Addie DO Work Phone: [facility] Encounters Encounter Date Encounter Type Care Provider Facility Start: 10-01-2024 End: 10-01-2024 Bamboo flowsheet Sudheer Chacon MD Work Phone: [facility] Start: 10-01-2024 End: 10-01-2024 Clinisync Result Encounter Sudheer Chacon MD Work Phone: [facility] Unsolicited Start: 10-01-2024 End: 10-01-2024 Clinisync Result Encounter Sudheer Chacon MD Work Phone: [facility] Unsolicited Start: 10-01-2024 End: 10-01-2024 ambulatory Sudheer Chacon Facility:[facility] Start: 10-01-2024 End: 10-01-2024 Patient encounter procedure Sudheer Chacon [facility] Start: 10-01-2024 End: 10-01-2024 Office outpatient visit 25 minutes Sudheer Chacon MD Work Phone: [facility] Comment on above: LAD (lymphadenopathy ) of left cervical region (Primary Dx) Start: 10-01-2024 End: 10-01-2024 ambulatory SUDHEER CHACON Not Available Start: 09-27-2024 End: 09-27-2024 ambulatory ROSTACY PATEL Not Available Start: 09-27-2024 End: 09-27-2024 Telephone encounter Toñito Alvarez MA [facility] [facility] Start: 09-26-2024 End: 09-26-2024 [facility] Start: 09-23-[facility]24 End: 09-23-2024 ambulatory [facility] Start: 09-17-2024 End: 09-17-2024 Marah Chacon MD Work Phone: [facility] Start: 09-17-2024 End: 09-17-2024 Bamboo marcos Chacon MD Work Phone: [facility] Start: 09-17-2024 End: 09-17-2024 Office outpatient new 45 minutes Sudheer Chacon MD Work Phone: [facility] Comment on above: Right facial pain (P rimary Dx) Start: 09-17-2024 End: 09-17-2024 ambulatory SUDHEER CHACON Not Available Start: 09-15-2024 End: 09-15-2024 Telephone encounter Emanuel Denney MA [facility] Start: 09-14-2024 End: 09-14-2024 Telephone encounter Toñito Alvarez MA [facility] Start: 09-13-2024 End: 09-13-2024 Bamboo flowsheet Ro C Windnagel [employer] Work Phone: [facility] Start: 09-13-2024 End: 09-13-2024 Bamboo flowsheet Ro C Windnagel [employer] Work Phone: [facility] Start: 09-13-2024 End: 09-13-2024 Office outpatient visit 40 minutes Ro C Windnagel [employer] Work Phone: [facility] Comment on above: Occipital neuralgia of right side (Primary Dx); Trigeminal neuralgia of right side of face (CMS/HCC); Diplopia Start: 09-13-2024 End: 09-13-[address] C WINDNAGEL Not Available Start: 09-08-2024 End: 09-08-2024 Office outpatient visit 15 minutes Jeremy Addie DO Work Phone: [facility] Comment on above: Irregular periods; PCOS (polycystic ovarian syndrome); Female infertility; Mood disorder (CMS/HCC) Start: 09-08-2024 End: 09-08-2024 ambulatory JEREMY ADDIE Not Available Start: 08-26-2024 End: 08-30-2024 Telephone encounter Charlotte Link APRN-DIVISION COMMANDER Work Phone: [facility] Start: 08-24-2024 End: 08-24-2024 Clinisync Result Encounter Barb Stallings AI Work Phone: [facility] Unsolicited Start: 08-24-2024 End: 08-24-2024 Clinisync Result Encounter Barb Stallings AI Work Phone: [facility] Unsolicited Start: 08-19-2024 End: 08-25-2024 Clinisync Result Encounter Barb Stallings AI Work Phone: [facility] Unsolicited Start: 08-19-2024 End: 08-25-2024 Clinisync Result Encounter Barb Stallings AI Work Phone: [facility] Unsolicited Start: 08-19-2024 End: 08-19-2024 ambulatory BARB HAYLIE Not Available Start: 08-17-2024 End: 08-17-[address]24 [address] RO C WINDNAGEL Not Available Start: 08-10-2024 End: 08-10-2024 Patient encounter procedure ANP-BC Ro Windnagel Work Phone: [facility] [place] Work Phone: Start: 08-10-2024 End: 08-10-2024 ambulatory NON STAFF [facility] Work Phone: Start: 07-01-2024 End: 07-01-2024 amb[address] RO C WINDNAGEL Not Available Start: 06-25-2024 End: 06-25-2024 Patient encounter procedure ANP-BC Ro Windnagel Work Phone: [facility] [place] Work Phone: Start: 06-25-2024 End: 06-25-2024 ambulatory NON STAFF [facility] Work Phone: Start: 06-08-2024 End: 06-08-[address]24 [address] RO C WINDNAGEL Not Available Start: 06-01-2024 End: 06-01-[address]24 [address] RO C WINDNAGEL Not Available Start: 05-31-2024 End: 05-31-2024 ambulatory RO PATEL [facility] Start: 05-13-2024 End: 05-13-2024 ambulatory RO PATEL Not Available Start: 04-29-2024 End: 04-29-2024 ambulatory RO PATEL Not Available Start: 02-17-2024 End: 02-17-2024 ambulatory BRUNO RYAN Not Available Start: 02-03-2024 End: 02-03-2024 ambulatory JEREMY REAL Not Available Start: 07-08-2023 End: 07-08-2023 Patient encounter procedure CAREN FULTON [facility] Start: 03-04-2023 End: 03-05-2023 ambulatory SAJAN SHAMMO Facility:[facility] Start: 03-01-2023 Encounter for genera l adult medical examination without [facility] Start: 02-25-2023 End: 02-26-2023 ambulatory SAJAN SHAMMO Facility:[facility] Start: 02-25-2023 End: 02-26-2023 Encounter for general adult medical examination without abnormal findings SAJAN SHAMMO Facility:[facility] Start: 02-13-2023 End: 02-14-2023 ambulatory SAJAN SHAMMO Facility:[facility] Procedures Date Procedure Procedure Detail Performing Clinician Start: 10-01-2024 [facility] CBC W/ AUTO DIFF H bree Chacon MD Work Phone: Start: 08-24-2024 ALL CBC WITH AUTO DIFF Barb CLOUD Work Phone: Start: 08-19-2024 IGP,APTIMA HPV,AGE GDLN Barb CLOUD Work Phone: Start: 08-19-2024 Microscopic observat ion [Identifier] in Cervix by Cyto stain Jeremy Real DO Work Phone: Start: 08-10-2024 MR lumbar spine wo con ANP-BC Ro Jann Work Phone: Start: 08-10-2024 XR pre/post mri xray AN P-BC Ro Patel Work Phone: Start: 06-25-2024 MRI of cervical spin e without contrast ANP-BC Ro Patel Work Phone: Start: 07-22-2022 Microscopic observat ion [Identifier] in Cervix by Cyto stain Barb CLOUD Work Phone: Start: 07-01-2022 Microscopic observat ion [Identifier] in Cervix by Cyto stain Charlotte Link LEAD [employer]OS DEVELOPER-DIVISION COMMANDER Work Phone: [employer] [facility] [employer] [facility] Hysterectomy CAREN FULTON Tonsillectomy CAREN FULTON Plan of Treatment Date Care Activity Detail Author Start: 08-21-2028 Screening for malign ant neoplasm of cervix [facility] Start: 08-19-2027 Screening for malign ant neoplasm of cervix Pap Smear [facility] Start: 07-22-2025 Screening for malign ant neoplasm of cervix Pap Smear [facility] Start: 07-01-2025 Screening for malign ant neoplasm of cervix Pap Smear [facility] Start: 02-15-2025 End: 02-15-2025 Patient encounter procedure 02/15/2025 9:20 AM EDT Office Visit [facility] [address] [place] [phone] Bruno Ryan MD [address] [place] [address] [facility] Start: 11-09-2024 End: 11-09-2024 Patient encounter procedure 11/09/2024 3:00 PM EST Office Visit [facility] [address] [place] [id number] Zac Tay DO [address], [place] [address] [facility] Start: 10-19-2024 End: 10-19-2024 Patient encounter procedure 10/19/2024 10:20 AM EST Office Visit [facility] [place] [address] [place] [phone] Francine Mallory PA [address] [place] [address] [facility] [place] [facility] Start: 10-07-2024 End: 10-07-2024 Patient encounter procedure 10/07/2024 12:20 PM EST Office Visit [facility] [address] [facility] [address] [place] [address] Francine Mallory PA [address] [place] [address] [facility] Start: 10-05-2024 End: 10-05-2024 Patient encounter procedure 10/05/2024 8:10 AM EST Office Visit [facility] [address] [place] [address] Jeremy Real, [address] [place] [address] [facility] Start: 10-01-2024 End: 10-01-2024 Patient encounter procedure 10/01/2024 8:30 AM EST Office Visit [facility] [address] [facility] [address] [place] [address] Sudheer Chacon MD [address] [facility] [address] [place] [address] Arrived [facility] Comment on above: Arrived Start: 09-27-2024 End: 09-27-2024 Professional / ancillary services management 09/27/2024 3:15 PM EST Ancillary Procedure [facility] [address] [place] [address] [facility] Start: 09-17-2024 End: 09-17-2024 Patient encounter procedure [facility] Comment on above: Arrived Start: 09-13-2024 End: 09-13-2024 Patient encounter procedure 09/13/2024 1:40 PM EDT Office Visit [facility] [address] [facility] [address] [place] [address] Ro Patel, [employer] [address] [place] [address] Arrived [facility] Comment on above: Arrived Start: 09-08-2024 End: 09-08-2024 Patient encounter procedure 09/08/2024 11:10 AM EDT Office Visit [facility] [address] [place] [address] Jeremy Real, DO [address] [place] [address] [facility] Start: 07-25-2024 COVID-19 Vaccine ( season) COVID-19 Vaccine ( season) [facility] Start: 07-25-2024 Influenza vaccination [facility] [place] [place] Start: 07-23-2023 Adult BMI Screening Adult BMI Screen ing [facility] Start: 2001 Depression Screening Depression Scre ening [facility] Start: 2001 Tobacco Screening Tobacco Screening [facility] Start: 2000 DTaP,Tdap and Td Vaccines (6 - Tdap) DTaP,Tdap and Td Vaccines (6 - Tdap) [facility] MR Brain WO and W contrast IV MR brain w and wo contrast routine Imaging High Priority Trigeminal neuralgia of right side of face (CMS/HCC) Ordered: 09/13/2024 [facility] Work Phone: Comment on above: Ordered: 09/13/2024 Immunizations Immunization Date Immunization Notes Care Provider Fa grant 08-25-2013 influenza virus vaccine, unspecified formulation Charlotte Link APRN-DIVISION COMMANDER Work Phone: [facility] Payers Date Payer Category Payer Self-pay 2022 [facility] [id number] 2022 Unknown [id number] 1989 Unknown [id number] 2.16.840.1.068342.3.579. 2.593 1989 Unknown [id number] 2.16.840.1.300652.3.579. 2.593 1989 Unknown [id number] 2.16.840.1.780263.3.579. 2.593 1989 Unknown [id number] 2.16.840.1.121302.3.579. 2.1286 1989 Unknown [id number] 2.16.840.1.202320.3.579. 2.1259 1989 Unknown [id number] 2.16.840.1.990950.3.579. 2.1259 1989 Unknown [id number] 2.16.840.1.714382.3.579. 2.1259 1989 Unknown [id number] 2.16.840.1.005817.3.579. 2.1259 1989 Unknown [id number] 2.16.840.1.196624.3.579. 2.1259 1989 Unknown [id number] 2.16.840.1.656941.3.579. 2.9 1989 Unknown [id number] 2.16.840.1.256510.3.579. 2.9 1989 Unknown [id number] 2.16.840.1.907687.3.579. 2.1258 1989 Unknown [id number] 2.16.840.1.088575.3.579. 2.1258 1989 Unknown [id number] 2.16.840.1.919007.3.579. 2.1258 1989 Unknown [id number] 2.16.840.1.911836.3.579. 2.9 1989 Unknown [id number] 2.16.840.1.433587.3.579. 2.1258 1989 Unknown [id number] 2.16.840.1.248880.3.579. 2.1258 1989 Unknown [id number] 2.16.840.1.555204.3.579. 2.1258 1989 Unknown [id number] 2.16.840.1.269594.3.579. 2.727 1959 Unknown [id number] 1959 Unknown [id number] Unknown [id number] 2.16.840.1.344909.3.579. 2.531 Unknown [id number] 2.16840.1.347724.3.579. 2.531 Social History Date Type Detail Facility Tobacco smoking status [facility]u [facility] Start: 04-28-2024 End: 09-17-2024 Sex Assigned At Female [facility] Start: 1990 Sex Assigned At Female [facility] Start: 07-01-2024 Tobacco smoking status NHIS Ex-smoker [facility] Start: 07-25-2007 End: 06-24-2023 History of tobacco use Current smoker [facility] Start: 07-25-2007 End: 06-24-2023 History of tobacco use Cigarette Smoker [facility] Start: 07-01-2024 End: 09-17-2024 Cigarettes smoked current (pack per day) - Reported 1.5 [facility] Start: 07-12-2019 End: 07-01-2024 Tobacco use and exposure Smokeless tobacco non-user [facility] Start: 08-19-2024 End: 10-01-2024 Alcoholic beverage intake Current drinker of alcohol [...] Gender identity Identifies as female gender (finding) [facility] Start: 07-12-2022 Sexual orientation Heterosexual (finding) [facility] Start: 12-25-2016 Tobacco smoking status [facility] Smokes tobacco daily [facility] Childcare Unknown [facility] Start: 07-01-2022 Alcohol Comment rare [facility] Clinical Notes 08-26-2024 to 10-01-2024 Sudheer Chacon MD - 10/01/2024 8:30 AM ESTTelephone Encounter - Ro Patel NP - 09/27/2024 10:49 AM ESTTelephone Encounter - Ro Patel NP - 09/27/2024 10:49 AM EST Note Date & Type Note Facility 10-01-2024 History of Present illness Narrative Subjective Patient ID: Kierra Natarajan is a 33 y.o. female who presents for Facial Pain (MRI 09/27/24 [facility]) Pt reports she has developed painful LAD after her MRI scan. Has not kept appt with Dr Juan. Seen in the ED, but no tx initiated. MRI reviewed and there are no acute findings, but there are mult nick normal-sized cervical and parotid LN that enhance on one post-johnnie sequence. Has previously been tx with keflex, levaquin and medrol. 09/26 WBC normal Family History Problem Relation Name Age of [...] Diagnosis Date ADHD (attention deficit hyperactivity disorder) ([facility]) Depression ([facility]) Ear problems Head injury October 16 Infertility, female Migraine ([facility]) 05/2024 PTSD (post-traumatic stress disorder) ([facility]) Past Surgical History: Procedure Laterality Date ADENOIDECTOMY 99 DILATION AND CURETTAGE OF UTERUS HYSTEROSCOPY PELVIC LAPAROSCOPY TONSILLECTOMY Allergies Allergen Reactions Dextromethorphan-Guaifenesin Current Outpatient Medications on File Prior to Visit Medication Sig Dispense Refill baclofen (Lioresal) 5 MG tablet Take 1 tablet (5 mg) by mouth in the morning and 1 tablet (5 mg) in the evening and 1 tablet (5 mg) before bedtime. (Patient taking differently: Take 5 mg by mouth continuously if needed) 90 tablet 2 carBAMazepine ER (Carbatrol) 300 MG 12 hr capsule Take 1 capsule (300 mg) by mouth in the morning and 1 capsule (300 mg) before bedtime. Do not crush or chew.. 60 capsule 2 hydrOXYzine HCl (Atarax) 10 MG tablet Take 50 mg by mouth 3 (three) times a day as needed ibuprofen 800 MG tablet Take 600 mg by mouth every 6 (six) hours if needed for moderate pain [DISCONTINUED] metFORMIN XR (Glucophage-XR) 500 MG 24 hr tablet Take 1 tablet (500 mg) by mouth in the morning and 1 tablet (500 mg) before bedtime. Do not crush, chew, or split.. 30 tablet 11 [DISCONTINUED] methylPREDNISolone (Medrol) 4 MG tablet No current facility-administered medications on file prior to visit. Objective Last Recorded Vitals Vitals: 10/01/24 0825 BP: 121/80 ENT Physical Exam Neck Neck comments: Left 2.5cm zone [address] Assessment/Plan Diagnoses and all orders for this visit: LAD (lymphadenopathy) of left cervical region Pt may have new cervical LAD. I will start augmentin and prednisone, and check a CBC with diff, ESR and CRP. If no sign of infection on labs recommend hem-onc eval for possible lymphoproliferative d/o. Pt should keep appt with Dr Juan documented in this encounter [facility] 09-28-2024 Note Reviewing ER visit: ENT should look at the MRI for the parotid gland and lymph node findings. Calcium little low on labs. Make sure she is takign D3 2000 U. 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 Patient complains of pain and pressure to the front of her neck and can now feel swollen glands in the back of her neck at the base of the skull. Patient rates the pain 3/10, the pain is constant. She reports she has muscle aches all over. Patient states she is not sleeping, has increased anxiety. She does report it is difficult for her to eat solid foods but intake of liquids is okay. She reports she is have problems swallowing her saliva while in a reclined position. Patient following with ENT on 10/01/2024, she would like the PCP to review labs and communicate with her what concerns if any she should bring to the ENT's attention. 10/01/2024 - Spoke w/the patient shared the message from PCP, explained to patient what information the ENT should review from the MRI. Patient was also informed PCP wants her to take D3 2000u due to low calcium. Patient verbalized understanding. Patient states ENT wants her to follow up with Hemo-oncology she is requesting a referral to Hemo-oncology [facility] Shimon See for follow up/evaluation. PCP will be notified of request for referral. Stat labs were also completed at [facility] on 10/01/2024. PCP Appointment: 09/23/2024 - last in office appointment with PCP 09/28/2024 - follow up with neurology 10/01/2024 - follow up with ENT (Quin Chacon) New Medications: No new medications Call Us First: Discussed with patient the opportunity to contact this office for all after-hours care questions, 16/06. Discussed with patient this office often has availability for same-day sick appointments. [facility] 09-27-2024 Telephone encounter Note I have never seen this with tegretol. If she wants to try a different medication we can do that. I would try cymbalta or gabapentin if she wants to try something different.Let me know and Ill send something in if she wants something different [facility] 09-27-2024 Miscellaneous Notes I have never seen this with tegretol. If she wants to try a different medication we can do that. I would try cymbalta or gabapentin if she wants to try something different.Let me know and Ill send something in if she wants something different On of last week pt was seen by PCP for lumps behind ears, on jaw line, sore throat and swollen glands. PCP said to f/u with our office as this could be a reaction to her med, carbamazepine. 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 Patient went to ER in [place] on Friday morning and notes that they did labs. Notes that they did not go over anything specific. Told her she was walking talking and breathing and to f/u with PCP / Neurologist. Notes that they put on her pw Upper Respiratory infection, but never discussed this with the pt. Patient also notes that she spoke with the pharmacy and since the med was increased she has not picked up the new dosage. Pharmacy recommended she did not increase dosage until f/u with us. documented in this encounter [facility] 09-27-2024 Telephone encounter Note On of last week pt was seen by PCP for lumps behind ears, on jaw line, sore throat and swollen glands. PCP said to f/u with our office as this could be a reaction to her med, carbamazepine. 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 Patient went to ER in [place] on Friday morning and notes that they did labs. Notes that they did not go over anything specific. Told her she was walking talking and breathing and to f/u with PCP / Neurologist. Notes that they put on her pw Upper Respiratory infection, but never discussed this with the pt. Patient also notes that she spoke with the pharmacy and since the med was increased she has not picked up the new dosage. Pharmacy recommended she did not increase dosage until f/u with us. [facility] 09-23-2024 Note Family Medicine - Ou tpatient visit 09/23/2024 HPI: 33-year-old female presenting today for possible swollen lymph node to the right neck. Dx with Trigeminal neuralgia 07/25. She is now taking Carbamazepinesince 09/13 and the medication has been helping with the right side facial numbness. Was washing her face and had lump on her neck to the right. She noticed neck swelling as well this morning. She states the right side of her torso had fallen asleep. Having Dull pain to the right abd this morning. Grown lump as well that she will follow up with Rohit next week. [facility] and is getting an MRI this next Friday. Having Night sweats possibly before startingcarbemazapine. Has history of Arnold chiari malformation. She was also placed on antibiotics and steroids finishing last week. No other concerns at this time. Chief Complaint Patient presents with lymphnode Patient states she has swollen lymphnode around jaw/ neck within the past couple days. Right side of abdomen gets tingly and numb. She was dx with Trigeminal neuralgia earlier August. Verified by her neurology. MRI on Friday of head. --ASCVD RISK (40-79): The ASCVD Risk score (Kassi BATISTA, et al., 2019) failed to calculate for the following reasons: The 2019 ASCVD risk score is only valid for ages 40 to 79 Past Medical History: Patient Active Problem List Diagnosis Date Noted Lipoma of thigh 02/01/2022 Cigarette smoker 02/01/2022 Obesity with body mass index 30 or greater 02/01/2022 Ventricular premature beats 02/27/2021 Premature atrial contraction 02/27/2021 Intermittent palpitations 02/27/2021 High-density lipoprotein deficiency 02/27/2021 Generalized anxiety disorder 02/27/2021 Mass of soft tissue of left lower extremity 02/27/2021 Depressive disorder 07/13/2019 Papanicolaou smear for cervical cancer screening 06/04/2016 Exposure to sexually transmitted disease (STD) 06/04/2016 Endometriosis 06/04/2016 Allergies: Dextromethorphan-guaifenesin Family History: Family History Problem Relation Name Age of Onset Anxiety disorder Mother Tania Arthritis Mother Tania Depression Mother Tania Alcohol abuse Father Jose Miguel Cancer Father Jose Miguel Alcohol abuse Sister Kasie Anxiety disorder Sister Kasie Arthritis Mother's Sister Leann Arthritis Mother's Brother Hodge Arthritis Mother's Sister [place] Social History: Social History Tobacco Use Smoking status: Former Packs/day: 0.50 Years: 15.00 Additional pack years: 0.00 Total pack years: 7.50 Types: Cigarettes Start date: 11/24/2008 Smokeless tobacco: Never Vaping Use Vaping Use: Never used Substance Use Topics Alcohol use: Not Currently Comment: Maybe 2 or 3 times a year Drug use: Not Currently Frequency: 2.0 times per week Types: Marijuana Hospital/Surgical History: She has a past surgical history that includes Tonsillectomy and Hysteroscopy. Current and New Medications started: Current Outpatient Medications on File Prior to Visit Medication Sig baclofen (Lioresal) 5 mg tablet Take 5 mg by mouth three times daily. PRN carBAMazepine (Carbatrol) 300 mg 12 hr capsule Take 300 mg by mouth two times daily. [DISCONTINUED] hydrOXYzine HCL (Atarax) 10 mg tablet Take 10 mg by mouth if needed in the morning, at noon, and at bedtime. [DISCONTINUED] diclofenac (Voltaren) 75 mg EC tablet Take 75 mg by mouth if needed in the morning and at bedtime. [DISCONTINUED] meclizine (Antivert) 25 mg tablet Take 25 mg by mouth every 12 (twelve) hours if needed. [DISCONTINUED] oriyamxt-whvrwizxj-qgaQTNNBwqtsv (Maxitrol) 3.5mg/mL-10,000 unit/mL-0.1 % ophthalmic suspension INSTILL 1 DROP INTO RIGHT EYE 4 TIMES DAILY [DISCONTINUED] tiZANidine (Zanaflex) 4 mg tablet TAKE 1 TABLET BY MOUTH THREE TIMES DAILY NEEDED FOR 14 DAYS No current facility-administered medications on file prior to visit. Review of Systems: Review of systems unremarkable unless stated below Review of Systems Constitutional: Negative for fatigue and fever. HENT: Negative for congestion and sore throat. Respiratory: Negative for shortness of breath. Gastrointestinal: Negative for abdominal pain. Musculoskeletal: Negative for arthralgias. Hematological: Positive for adenopathy. Psychiatric/Behavioral: The patient is not nervous/anxious. All other systems reviewed and are negative. Vitals: Visit Vitals BP 138/78 (BP Location: Left arm, Patient Position: Sitting) Pulse 85 Ht 1.753 m (5' 9 ) Wt 108 kg (238 lb) LMP 09/23/2024 (Exact Date) SpO2 98% BMI 35.15 kg/m??? OB Status Having periods Smoking Status Former BSA 2.29 m??? 09/23/2024 11:00 AM PHQ9 Score Trend PHQ9 Total Score 16 Most Recent test results with patient: No visits with results within 1 Year(s) from this visit. Latest known visit with results is: Office Visit on 04/10/2023 Component Date Value WILMA Titer 04/10/2023 <1:40 SS-A (RO) Ab 04/10/2023 (more content not included)... [facility] 09-15-2024 Telephone encounter Note This has been taken care of. I do not think these are seizure as she has not altered awareness. We will see what the brain MRI shows. She was started on tegretol. If brain MRI normal and symptoms are persistent we can consider referral to [facility] and/or [facility]. [facility] 09-15-2024 Miscellaneous Notes This has been taken [...] would like the MRI order faxed to [facility] documented in this encounter [facility] 09-15-2024 Telephone encounter Note Patient called leaving [...] would like the MRI order faxed to [facility] 09-14-2024 Telephone encounter Note Done [facility] 09-14-2024 Miscellaneous Notes Done Pharmacy calls stating that the pt is not wanting to cut the baclofen in half and is asking us to send an rx for 5mg tabs to the pharmacy. documented in this encounter [facility] 09-14-2024 Telephone encounter Note Pharmacy calls stating that the pt is not wanting to cut the baclofen in half and is asking us to send an rx for 5mg tabs to the pharmacy. [facility] 09-13-2024 History of Present illness Narrative Images from the original note were not included. Subjective Kierra Natarajan is a 33 y.o. year old female No chief complaint on file. Past Medical History: Diagnosis Date ADHD (attention deficit hyperactivity disorder) ([facility]) Anxiety Depression ([facility]) Head injury October 16 Infertility, female PTSD (post-traumatic stress disorder) ([facility]) Past Surgical History: Procedure Laterality Date DILATION [...] 1053 hydrOXYzine HCl (Atarax) 10 MG tablet [id number] Yes Take 10 mg by mouth 3 (three) times a day as needed. Historical Provider, Active ibuprofen 800 MG tablet [id number] Yes Take 800 mg by mouth every 6 (six) hours if needed for moderate pain Jeremy Real, DO Active levoFLOXacin (Levaquin) 250 MG tablet [id number] Yes Take 2 tablets by mouth Daily Jeremy Real, DO Active metFORMIN XR (Glucophage-XR) 500 MG 24 hr tablet [id number] Yes Take 1 tablet (500 mg) by [...] in upper and lower extremities. Coordination Right: Dpjjyx-jb-vdkk normal. Rapid alternating movement normal.Left: Perirq-rh-xseg normal. Rapid alternating movement normal. Gait Casual gait is normal including stance, stride, and arm swing. Motor Examination RUE Strength deltoid, biceps, triceps, wrist extensors, wrist extensors, wrist flexor, collar stay fuser tender strength 5/5. LUE Strength deltoid, biceps, triceps, wrist extensors, wrist extensors, wrist flexor, collar stay fuser tender strength 5/5. RLE Strength illopsoas, quadriceps, tibialis [...] well. In September she was helping her rdsotx-id-xns into a chair and his head hit [...] normal. 4. MRI brain 04/2024 is nonacute/normal 5. [address] cervical spine reversal of [...] make further recommendations documented in this encounter [facility] 09-08-2024 History of Present illness Narrative Reason for Appointment: Patient ID: [...] Diagnosis Date ADHD (attention deficit hyperactivity disorder) ([facility]) Depression ([facility]) Head injury October 16 Infertility, female PTSD (post-traumatic stress disorder) ([facility]) HISTORY PAST MEDICAL HISTORY SOCIAL HISTORY Past Medical History: Diagnosis Date ADHD (attention deficit hyperactivity disorder) ([facility]) Anxiety Depression ([facility]) Head injury October 16 Infertility, female PTSD (post-traumatic stress disorder) ([facility]) Social History Tobacco Use Smoking status: Former [...] nursing note reviewed. Exam conducted with a it compliance analyst present. Vitals: Estimated body mass index is [...] Jeremy Real DO documented in this encounter [facility] 08-26-2024 Miscellaneous Notes Patient called she is looking for a new provider. She has been having ongoing double vision, she has seen neuro, eye dr obgyn, ect. Nobody has an idea what is is going and is freaking out. I want to get her with either you or furlong he's booking out till about October I would feel she is more appropriate for a physician at this time. Would you be okay to accept? documented in this encounter [employer] 08-26-2024 Telephone encounter Note Patient called she is looking for a new provider. She has been having ongoing double vision, she has seen neuro, eye dr obgyn, ect. Nobody has an idea what is is going and is freaking out. I want to get her with either you or furlong he's booking out till about October [employer] 08-26-2024 Telephone encounter Note I would feel she is more appropriate for a physician at this time. [employer] Work Phone: 08-26-2024 Telephone encounter Note Would you be okay to accept? [employer] Evaluation + Plan note No data available for this section [facility] Evaluation note No assessment inform ation available [facility] Work Phone: Evaluation note Diagnosis Irregular periods [...] Primary Headache [facility] Diagnosis LAD (lymphadenopathy) of left cervical region- Primary documented in this encounter [facility] Present illness Narrative* Sudheer Chacon MD - 09/17/2024 10:30 AM EDT Subjective Patient ID: Kierra Natarajan is a 33 y.o. female who presents for Sialoadenitis Pt reports one mo ago she started developing intermittent right facial numbness and tingling. Also getting intermittent double vision. Improved since starting tegratol and baclofen. Pt at [facility]. MRI ordered and awaiting scheduling. [...] Migraine (CMS/HCC) 05/2024 PTSD (post-traumatic stress disorder) (CMS/HCC) Past Surgical History: Procedure Laterality Date ADENOIDECTOMY [...] suggests any [facility] No data available for this section [facility] InstructionsNot on filedocumented in this encounter [facility] No data available for this section [facility] Summary Purpose Family History No Family History Records FoundNo Family History Records FoundNo Family History Records FoundNo Family History Records Found No data available for this section No Family History Records FoundNo Family History [...] CREATED AUTHOR AUTHOR'S ORGANIZ ATION 03/09/2023 [facility] DATE CREATED AUTHOR AUTHOR'S ORGANIZ ATION 06/08/2024 [facility] DATE CREATED AUTHOR AUTHOR'S ORGANIZ ATION 08/16/2024 [facility] DATE CREATED AUTHOR AUTHOR'S ORGANIZ ATION 10/02/2024 [facility] DATE CREATED AUTHOR AUTHOR'S ORGANIZ ATION 10/03/[address] [facility] EPIC DATE CREATED AUTHOR AUTHOR'S ORGANIZ ATION 10/03/2024 [facility] Patient Care team informatio n (unrecognized section [...] August 10, 2024 End: August 10, 2024 Nephrologist Relationship Specialty Start Date End Date Unallocated, Yun Chi [place] [address] [place] [address] PCP - General Family Medicine 08/17/24 Nephrologist Relationship Specialty Start Date End Date Unallocated, [place] [address] PCP - General Family Medicine 08/17/24 Nephrologist Relationship Specialty Start Date End Date No Pcp, [place] [address] PCP - General Family Medicine 05/31/24 Nephrologist Relationship Specialty Start Date End Date Unallocated, [place] [address] PCP - General Family Medicine 08/17/24 Nephrologist Relationship Specialty Start Date End Date Unallocated, Yun Chi MD [facility] [address] [place] [address] PCP - General Family Medicine 08/17/24 Nephrologist Relationship Specialty Start Date End Date Unallocated, Yun Chi MD [facility] [address] [place] [address] PCP - General Family Medicine 08/17/24 Nephrologist Relationship Specialty Start Date End Date Unallocated, Yun Chi MD [facility] [address] [place] [address] PCP - General Family Medicine 08/17/24 Nephrologist Relationship Specialty Start Date End Date Unallocated, Yun Chi MD [facility] [place] [address] PCP - General Family Medicine 08/17/24 Nephrologist Relationship Specialty Start Date End Date Unallocated, Yun Chi MD [address] [place] [address] [place] [address] PCP - General Family Medicine 08/17/24 Nephrologist Relationship Specialty Start Date End Date Unallocated, Yun Chi MD [facility] [place] [address] PCP - General Family Medicine 08/17/24 Nephrologist Relationship Specialty Start Date End Date Unallocated, Yun Chi MD [address] [place] [address] [place] [address] PCP - General Family Medicine 08/17/24 Goals (unrecognized section and content) Goals may be documented in a n alternate section Reason for Visit (unrecogniz ed section and content) Reason Comments Follow up testing Reason Comments Sialoadenitis Reason Comments Facial Pain MRI 09/27/24 [facility] FOR RECORDS PERTAINING TO PATIENTS WHO ARE [...] BE BASED ON THE PRIMARY CLINICAL RECORDS. [facility], [facility]. provides no warranty or guarantee of the accuracy or completeness of information in this document.
== END 2024-10-06 14:08 | disposition home or self-care (01) ==
LOC: CT 14:07
PROVIDERS: Visit Provider Otolaryngology
DX: R59.0 Localized enlarged lymph nodes (principal)
CPT/HCPCS: 70491; Q9967

== ENCOUNTER 2024-10-25 08:33 | Outpatient (OUT) | payer BC, SELFPAY ==
--- OUTSIDE RECORDS SUMMARY | 2024-10-25 08:59 | XMS_ITS | CCD ---
Author Organization [facility] CliniSymi Care Team Providers Care Hazardous Substances Scientist Name Role Phone SHAMMO, SAJAN Admitting Unavailable [...] Unavailable Windnagel, ANP-BC Ro Attending Provider [phone] NON STAFF Primary Care Provider Unavailabl e Jann SLIVER LAPPER-C Ro C Attending Provider [phone] NON STAFF Primary Care Unavailable Windnagel, Ro C Referring Unavailable Windnagel, Ro Admitting Unavailable Windnagel, Ro Attending Unavailable Windnagel, Ro C Admitting Unavailable Windnagel, Ro C Attending Unavailable NON STAFF Primary Care Unavailable Unallocated , Cong Provider Primary Care Provi jim Unallocated Cong GALLO Provider Primary Care Provi jim No Pcp, No Pcp Primary Care Provider Unavailabl e NONE, XXXX Primary Care Physician Unavailab le Unavailable Primary Care Provider Unavailabl e Timmis, Sudheer H Admitting Unavailable Timmis, Sudheer H Attending Unavailable Timmis, Sudheer H Admitting Unavailable Timmis, Sudheer H Attending Unavailable JEREMY REAL Attending Unavailable BRUNO RYAN Attending Unavailable WINDNAGEL, RO C Attending Unavailable WINDNAGEL, RO C Referring Unavailable WINDNAGEL, RO C Attending Unavailable WINDFIFIGEL, RO C Attending Unavailable WINDFIFIGEL, RO C Attending Unavailable LAURIEGEL, RO C Attending Unavailable BARB STALLINGS Attending Unavailable JEREMY REAL Attending Unavailable WINDFIFIGEL, RO C Attending Unavailable SUDHEER CHACON Attending Unavailable ROHIT LEOS Referring Unavailable JANN, RO Pickering Referring Unavailable SUDHEER CHACON Attending Unavailable ROHIT LEOS Referring Unavailable BARB STALLINGS Attending Unavailable ROHIT LEOS Attending Unavailable JIMMIE ANTOINE Attending Unavailable BOO, ANNA MARIE Referring Unavailable BOO, ANNA MARIE Referring Unavailable BOO, ANNA MARIE Attending Unavailable BOO, ANNA MARIE Attending Unavailable Allergies Allergy Classification Reported Allergen(s) Allergy Type Date of Onset Reaction(s) Facility (20 sources) Dextromethorphan / guaiFENesin; Translations: [DEXTROMETHORPHAN- AIFENESIN] Drug Allergy 3 [facility] Medications Current Medications Medication Drug Class(es) Dates Sig (Normalized) Sig (Original) amoxicillin 875 mg / clavulanate 125 mg oral tablet (6 sources) Penicillin-class Antibacterial Start: 10-01-2024 End: 10-15-2024 take 1 tablet by mouth in the morning amoxicillin-clavul anate (Augmentin) 875-125 MG tablet Indications: LAD (lymphadenopathy) of left cervical region Take 1 tablet (875 mg) by mouth in the morning and 1 tablet (875 mg) before bedtime. Do all this for 14 days. 28 tablet 10/01/2024 10/15/2024 Active 12 hr carBAMazepine 300 mg extended release oral capsule (15 sources) Mood Stabilizer Start: 09-23-2024 End: 10-23-2024 [...] mouth every week ergocalciferol (Drisdol) 1.25 MG (75250 UT) capsule Indications: Vitamin D deficiency Take 1 capsule (1.25 mg) by mouth 1 (one) time per week 12 capsule 3 05/31/2024 09/08/2024 Discontinued hydrOXYzine hydrochloride 10 mg oral tablet (20 sources) Antihistamine Start: 07-21-2009 take 5 tablets [...] 07/21/2009 Active ibuprofen 800 mg oral tablet (18 sources) Nonsteroidal Anti-inflammatory Drug Start: 09-04-2024 ibuprofen [...] capsule 11 09/08/2024 09/17/2024 Discontinued (Therapy completed) Completed/Discontinued Medications Medication Drug Class(es) Dates Sig (Normalized) Sig (Original) baclofen 5 mg oral tablet (18 sources) gamma-Aminobutyri c Acid-ergic Agonist Start: 09-14-2024 [...] mg) before bedtime. 90 tablet 2 09/14/2024 10/13/2024 Discontinued (Therapy completed) Start: 09-13-2024 End: 12-12-2024 take 0.5 tablet [...] 5 mg before bedtime. 09/13/2024 Discontinued (Reorder) Problems Active Problems Problem Classification Problem Date Documented Date Episodic/Chronic Abdominal pain (2 sources) Right upper quadrant pain; Translations: [Right upper quadrant pain] Onset: 10-10-2024 Episodic Administrative/social admission (2 sources) Patient encounter status; Translations: [Person consulting for explanation of examination or test findings] 10-13-2024 Episodic Anxiety disorders (20 sources) Anxiety; Translations: [Posttraumatic stress disorder] Onset: 04-28-2024 07-03-2023 Chronic Attention-deficit, conduct, and disruptive behavior disorders (2 sources) Attention deficit hyperactivity disorder 07-03-2023 Chronic Blindness and vision defects (20 sources) Diplopia; Translations: [Diplopia] Onset: 05-31-2024 08-17-2024 Episodic Conditions associated with dizziness or vertigo (20 sources) Dizziness; Translations: [Dizziness and giddiness] Onset: [...] Translations: [Right facial pain] 09-17-2024 Episodic Lymphadenitis (6 sources) Cervical lymphadenopathy; Translations: [Localized enlarged lymph nodes] Onset: 09-26-2024 10-01-2024 Episodic Malaise and fatigue (2 sources) Other fatigue; Translations: [Other fatigue] Onset: 10-06-2024 Episodic Menstrual disorders (2 sources) Irregular periods; Translations: [Irregular menstruation, unspecified] 09-08-2024 Chronic Mood disorders (5 sources) Depressive disorder; Translations: [Depressive disorder] Onset: 07-13-2019 07-03-2023 Chronic Mycoses (2 sources) Candidiasis, unspecified; Translations: [Candidiasis, unspecified] Onset: 10-14-2024 Episodic Other endocrine disorders (2 sources) Polycystic ovary syndrome; Translations: [Polycystic ovarian syndrome] 09-08-2024 Chronic Other nervous system disorders (1 source) Polyneuropathy, unspecified; Translations: [Polyneuropathy, unspecified] Onset: 05-31-2024 Chronic Other nervous system disorders (20 sources) Skin sensation disturbance; Translations: [Anesthesia of skin] Onset: 08-17-2024 08-17-2024 Episodic Other nervous system disorders (4 sources) Right trigeminal neuralgia; Translations: [Trigeminal neuralgia] 09-13-2024 Episodic Other nervous system disorders (2 sources) Trigeminal neuralgia; Translations: [Trigeminal neuralgia] Onset: 10-14-2024 Episodic Other non-traumatic joint disorders (4 sources) Pain in unspecified joint; Translations: [PAIN IN UNSPECIFIED JOINT] Onset: 03-04-2023 Episodic Other skin disorders (2 sources) Disorder of the skin and subcutaneous tissue, unspecified; Translations: [Disorder of the skin and subcutaneous tissue, unspecified] Onset: 10-10-2024 Episodic Other upper respiratory disease (2 sources) Allergic rhinitis, unspecified; Translations: [Allergic rhinitis, unspecified] Onset: 10-14-2024 Chronic Other upper respiratory infections (2 sources) Acute [...] 06-04-2016 02-10-2023 Episodic Other nervous system disorders (20 sources) Abnormal gait; Translations: [Unspecified abnormalities of gait and mobility] Onset: 04-28-2024 04-28-2024 Episodic Other screening for suspected conditions (not mental disorders or infectious disease) (2 sources) Encounter for screening for cardiovascular disorders; Translations: [Patient encounter status] Onset: 06-04-2016 06-04-2016 Episodic Results Test Name Value Interpretation Reference Range Facility 36on 10-16-2024 36 No the 600 mg BID is similar to the tegretol level that she is currently on. Normal [facility] 36on 10-15-2024 36 Patient called and said she picked up her Trileptal. She thought it was supposed to be 300mg 2 times a day instead of 600mg [address] [facility] Telephoneon 10-15-2024 Telephone [id number] Philomena NATARAJAN 1990 F Date Provider Department Center 10/15/2024 ROHIT TIRADO Family History Problem Relation Age of Onset Anxiety disorder Mother Arthritis Mother Depression Mother Alcohol abuse Father Cancer Father Alcohol abuse Sister Anxiety disorder Sister Arthritis Mother's Sister Arthritis Mother's Brother Arthritis Mother's Sister Family Status - Relation Status Age at Mother Father Sister Mother's Sister Mother's Brother Mother's Sister Normal [facility] Office Visiton 10-14-2024 Follow-up visit [id number] Philomena NATARAJAN 1990 F Date Provider Department Center 10/14/2024 [facility] Family History Problem Relation Age of Onset Anxiety disorder Mother Arthritis Mother Depression Mother Alcohol abuse Father Cancer Father Alcohol abuse Sister Anxiety disorder Sister Arthritis Mother's Sister Arthritis Mother's Brother Arthritis Mother's Sister Family Status - Relation Status Age at Mother Father Sister Mother's Sister Mother's Brother Mother's Sister Level of Service:66818 [place] OFFICE/OUTPATIENT ESTABLISHED MOD MDM 30 MIN Reason for Visit and Comments: Follow-up [359262] - Patient has first consult with hematology tomorrow with Dr. Ariza at [facility] Patent still has swollen lymphoneds. ENT prescribed antibiotic, last dose today. Requesting diflucan Normal [facility] Office Visiton 10-06-2024 Follow-up visit [id number] Philomena NATARAJAN 1990 F Date Provider Department Center 10/06/2024 [id number]-DFHNRANNA MARIE HERNANDEZ [facility] Family History Problem Relation Age of Onset Anxiety disorder Mother Arthritis Mother Depression Mother Alcohol abuse Father Cancer Father Alcohol abuse Sister Anxiety disorder Sister Arthritis Mother's Sister Arthritis Mother's Brother Arthritis Mother's Sister Family Status - Relation Status Age at Mother Father Sister Mother's Sister Mother's Brother Mother's Sister Level of Service:75653 [place] OFFICE/OUTPATIENT ESTABLISHED LOW MDM 20 MIN Reason for Visit and Comments: would like hemotology referral [Other] - Patient was seen by ent and they advised that she get a hematology oncology referral due to lymph nodes swelling on head and neck. ENT questioned finding on MRI of head Normal [facility] CBC w/ Auto Diffon 4 Basophils/100 WBC (Bld) 0.3 % Normal 0.0-2.0 [facility] Comment on above: Performed By: #### 2 [id number] #### [facility] [address] [place] [address] Basophils/Leukocytes Auto (Bld) [Pure # fraction] 0.0 E9/L Normal 0.0-0.2 [facility] Comment on above: Performed By: #### 2 [id number] #### [facility] [address] [place] [address] Eosinophils (Bld) [#/Vol] 0.2 E9/L Normal 0.0-0.5 [facility] Comment on above: Performed By: #### 2 [id number] #### [facility] [address] [place] [address] Eosinophils/100 WBC (Bld) 4.5 % Normal 0.0-8.0 [facility] Comment on above: Performed By: #### 2 [id number] #### [facility] [address] [place] [address] Erythrocyte distribution width (RBC) [Ratio] 13.3 % Normal 10.9-14.2 [facility] Comment on above: Performed By: #### 2 [id number] #### [facility] [address] [place] [address] Hematocrit (Bld) [Volume fraction] 39.3 % Normal 34.0-46.0 [facility] Comment on above: Performed By: #### 2 [id number] #### [facility] [address] [place] [address] Hemoglobin (Bld) [Mass/Vol] 13.7 g/dL Normal 12.0-16.0 [facility] Comment on above: Performed By: #### 2 [id number] #### [facility] [address] [place] [address] Lymphocytes (Bld) [#/Vol] 0.8 E9/L Low 1.0-4.0 [facility] Comment on above: Performed By: #### 2 [id number] #### [facility] [address] [place] [address] Lymphocytes/100 WBC (Bld) 14.6 % Normal 14.0-50.0 [facility] Comment on above: Performed By: #### 2 [id number] #### [facility] [address] [place] [address] MCH (RBC) [Entitic mass] 29.8 pg Normal 27.0-34.0 [facility] Comment on above: Performed By: #### 2 [id number] #### [facility] [address] [place] [address] MCHC (RBC) [Mass/Vol] 34.8 g/dL Normal 31.4-36.0 [facility] Comment on above: Performed By: #### 2 [id number] #### [facility] [address] [place] [address] MCV (RBC) [Entitic vol] 85.7 fL Normal 80.0-100.0 [facility] Comment on above: Performed By: #### 2 [id number] #### [facility] [address] [place] [address] Monocytes (Bld) [#/Vol] 0.4 E9/L Normal 0.2-1.0 [facility] Comment on above: Performed By: #### 2 [id number] #### [facility] [address] [place] [address] Neutrophils (Bld) [#/Vol] 3.9 E9/L Normal 2.0-7.5 [facility] Comment on above: Performed By: #### 2 [id number] #### [facility] [address] [place] [address] Neutrophils/100 WBC (Bld) 72.6 % Normal 36.0-75.0 [facility] Comment on above: Performed By: #### 2 [id number] #### [facility] [address] [place] [address] Platelet mean volume (Bld) [Entitic vol] 8.8 fL Normal 6.4-10.8 [facility] Comment on above: Performed By: #### 2 [id number] #### [facility] [address] [place] [address] Platelets (Bld) [#/Vol] 231.0 E9/L Normal 150.0-500.0 [facility] Comment on above: Performed By: #### 2 [id number] #### [facility] [address] [place] [address] RBC (Bld) [#/Vol] 4.6 E12/L Normal 4.3-5.9 [facility] Comment on above: Performed By: #### 2 [id number] #### [facility] [address] [place] [address] WBC corrected for nucl RBC Auto (Bld) [#/Vol] 5.4 E9/L Normal 4.0-11.0 [facility] Comment on above: Performed By: #### 2 [id number] #### [facility] [address] [place] [address] CHEMISTRYOrdered By: SYSTEM SYSTEM on 10-01-2024 CRP [Mass/Vol] 0.7 mg/dL Normal <=1.9mg/dL Remisol Ch em CRPon 10-01-2024 CRP [Mass/Vol] 0.7 mg/dL Normal <=1.9 [facility] Comment on above: Performed By: #### 2 [id number] #### [facility] [address] [id number] [facility] CBC W/ AUTO DIFFon EOSINOPHILS/100 LEUKOCYTES:NFR:PT:BLD :QN:AUTOMATED COUNT 4.5 % 0.0 - 8.0 % [facility] EOSINOPHILS:NCNC:PT:B LD:QN: 0.2 [facility] BASOPHILS/LEUKOCYTES: NFR.DF:PT:BLD:QN:AUTO MATED COUNT 0 [facility] ERYTHROCYTE MEAN CORPUSCULAR HEMOGLOBIN CONCENTRATION:MCNC:PT :RBC:QN 34.8 [facility] ERYTHROCYTE MEAN CORPUSCULAR HEMOGLOBIN:ENTMASS:PT :RBC:QN 29.8 pg 27.0 - 34.0 pg [facility] ERYTHROCYTE MEAN CORPUSCULAR VOLUME:ENTVOL:PT:RBC: QN:AUTOMATED COUNT 85.7 fL 80.0 - 100.0 fL [facility] ERYTHROCYTES:NCNC:PT: BLD:QN:AUTOMATED COUNT 4.6 [facility] HEMOGLOBIN:MCNC:PT:BL D:QN: 13.7 [facility] LEUKOCYTES 5.4 [facility] MONOCYTES:NCNC:PT:BLD :QN:AUTOMATED COUNT 0.4 [facility] NEUTROPHILS:NCNC:PT:B LD:QN:AUTOMATED COUNT 3.9 [facility] PLATELETS:NCNC:PT:BLD :QN:AUTOMATED COUNT 231 [facility] Interpretation and review of laboratory results Abnormal [facility] LYMPHOCYTES:NCNC:PT:B LD:QN: 0.8 Low [facility] Original Ordering Provider: MD Sudheer BOCANEGRA [facility] HEMATOLOGYOrdered By: SYSTEM SYSTEM on 10-01-2024 Basophils/100 [...] mm/h Normal 0 - 34 mm/hr FT HemeAutoSS Sed Rate Automatedon 024 ESR (Bld) [Velocity] 11 mm/h Normal 0-34 [facility] Comment on above: Performed By: #### 1 [id number] #### [facility] [address] [place] [address] Patient Outreachon 4 Patient Outreach [id number] Philomena NATARAJAN 1990 F Date Provider Department Center 09/28/2024 [id number]-DRYWLEMARÍA ELENA GALEANO PRIM [facility] Family History Problem Relation Age of Onset Anxiety disorder Mother Arthritis Mother Depression Mother Alcohol abuse Father Cancer Father Alcohol abuse Sister Anxiety disorder Sister Arthritis Mother's Sister Arthritis Mother's Brother Arthritis Mother's Sister Family Status - Relation Status Age at Mother Father Sister Mother's Sister Mother's Brother Mother's Sister Normal [facility] CBC WITH AUTO DIFFERENTIALon 09-26-2024 Basophils (Bld) [#/Vol] 0.05 10*3/uL Normal 0.00-0.20 [facility] Comment on above: Performed By: #### L [id number] ####[facility] (BEAK[facility])[address] [place] [address] Basophils/100 WBC (Bld) 1.0 % Normal 0.0-1.0 [facility] Comment on above: Performed By: #### L [id number] ####[facility] (BEAKER)[address] [place] [address] Eosinophils (Bld) [#/Vol] 0.26 10*3/uL Normal 0.00-0.50 [facility] Comment on above: Performed By: #### L [id number] ####[facility] (BEAKER)[address] [place] [address] Eosinophils/100 WBC (Bld) 5.0 % Normal 0.0-6.0 [facility] Comment on above: Performed By: #### L [id number] ####[facility] (BEAKER)[address] [place] [address] Erythrocyte distribution width (RBC) [Ratio] 13.0 % Normal 11.5-15.0 [facility] Comment on above: Performed By: #### L [id number] ####[facility] (BEAKER)[address] [place] [address] ERYTHROCYTE MEAN CORPUSCULAR HEMOGLOBIN CONCENTRATION (G/DL) BY AUTOMATED 34.0 g/dL Normal 32.0-35.0 [facility] Comment on above: Performed By: #### L [id number] ####[facility] (BEAKER)[address] [place] [address] Hematocrit (Bld) [Volume fraction] 37.1 % Normal 36.0-48.0 [facility] Comment on above: Performed By: #### L [id number] ####[facility] (BEAKER)[address] [place] [address] Hemoglobin (Bld) [Mass/Vol] 12.6 g/dL Normal 12.0-15.0 [facility] Comment on above: Performed By: #### L [id number] ####[facility] (BEAKER)[address] [place] [address] Immature granulocytes (Bld) [#/Vol] 0.02 10*3/uL Normal 0.00-0.20 [facility] Comment on above: Performed By: #### L [id number] ####[facility] (BEAKER)[address] [place] [address] Immature granulocytes/100 WBC (Bld) 0.4 % Normal 0.0-1.0 [facility] Comment on above: Performed By: #### L [id number] ####[facility] (BEAKER)[address] [place] [address] Lymphocytes (Bld) [#/Vol] 0.98 10*3/uL Low 1.20-4.00 [facility] Comment on above: Performed By: #### L [id number] ####[facility] (BEAKER)[address] [place] [address] Lymphocytes/100 WBC (Bld) 18.9 % Low 20.0-45.0 [facility] Comment on above: Performed By: #### L [id number] ####[facility] (BEAKER)[address] [place] [address] MCH (RBC) [Entitic mass] 29.4 pg Normal 27.0-33.0 [facility] Comment on above: Performed By: #### L [id number] ####[facility] (BEAKER)[address] [place] [address] MCV (RBC) [Entitic vol] 86.7 fL Normal 82.0-98.0 [facility] Comment on above: Performed By: #### L [id number] ####[facility] (BEAKER)[address] [place] [address] Monocytes (Bld) [#/Vol] 0.43 10*3/uL Normal 0.10-1.00 [facility] Comment on above: Performed By: #### L [id number] ####[facility] (BEAKER)[address] [place] [address] Monocytes/100 WBC (Bld) 8.3 % Normal 5.0-12.0 [facility] Comment on above: Performed By: #### L [id number] ####[facility] ([facility])[address] [place] [address] Neutrophils (Bld) [#/Vol] 3.44 10*3/uL Normal 1.60-7.60 [facility] Comment on above: Performed By: #### L [id number] ####[facility] ([facility])[address] [place] [address] Neutrophils/100 WBC (Bld) 66.4 % Normal 40.0-72.0 [facility] Comment on above: Performed By: #### L [id number] ####[facility] ([facility])[address] [place] [address] NRBC (PER 100 WBCS) BY AUTOMATED COUNT 0.0 % Normal 0 [facility] Comment on above: Performed By: #### L [id number] ####[facility] ([facility])[address] [place] [address] PLATELETS (10*3/UL) IN BLOOD AUTOMATED COUNT 224 10*3/uL Normal 150-400 [facility] Comment on above: Performed By: #### L [id number] ####[facility] ([facility])[address] [place] [address] RBC (Bld) [#/Vol] 4.28 10*6/uL Normal 3.80-5.00 [facility] Comment on above: Performed By: #### L [id number] ####[facility] ([facility])[address] [place] [address] WBC (Bld) [#/Vol] 5.18 10*3/uL Normal 4.00-10.60 [facility] Comment on above: Performed By: #### L [id number] ####[facility] ([facility])[address] [place] [address] COMPREHENSIVE METABOLIC PANE Philip 09-26-2024 Albumin [Mass/Vol] 3.9 g/dL Normal 3.5-5.7 [facility] Comment on above: Performed By: #### L [id number] ####[facility] (BEAKER)[address] [place] [address] ALP [Catalytic activity/Vol] 67 U/L Normal 34-104 [facility] Comment on above: Performed By: #### L [id number] ####[facility] (BEAKER)[address] [place] [address] ALT [Catalytic activity/Vol] 17 U/L Normal 7-52 [facility] Comment on above: Performed By: #### L [id number] ####[facility] (BEAKER)[address] [place] [address] Anion gap [Moles/Vol] 9 mmol/L Normal 7-20 [facility] Comment on above: Performed By: #### L [id number] ####[facility] (BEAKER)[address] [place] [address] AST [Catalytic activity/Vol] 15 U/L Normal 13-39 [facility] Comment on above: Performed By: #### L [id number] ####[facility] (BEAKER)[address] [place] [address] Bilirubin [Mass/Vol] 0.2 mg/dL Low 0.3-1.0 [facility] Comment on above: Performed By: #### L [id number] ####[facility] (BEAKER)[address] [place] [address] Calcium [Mass/Vol] 8.3 mg/dL Low 8.6-10.3 [facility] Comment on above: Performed By: #### L [id number] ####[facility] (BEAKER)[address] [place] [address] Chloride [Moles/Vol] 110 mmol/L High 98-107 [facility] Comment on above: Performed By: #### L [id number] ####[facility] (BEAKER)[address] [place] [address] CO2 [Moles/Vol] 24 mmol/L Normal 21-31 [facility] Comment on above: Performed By: #### L [id number] ####[facility] ([facility])[address] [place] [address] Creatinine [Mass/Vol] 0.72 mg/dL Normal 0.60-1.20 [facility] Comment on above: Performed By: #### L [id number] ####[facility] ([facility])[address] [place] [address] GLOMERULAR FILTRATION RATE ML/MIN/1.73 SQ M.PREDICTED 112.4 mL/min/1.73m*2 Normal >60.0 [facility] Comment on above: Result Comment: [facility]???s estimated glomerular filtration rate (eGFR) will [...] of individuals. Performed By: #### L [id number] ####[facility] ([facility])[address] [place] [address] Glucose [Mass/Vol] 90 mg/dL Normal 70-100 [facility] Comment on above: Performed By: #### L [id number] ####[facility] ([facility])[address] [place] [address] Potassium [Moles/Vol] 3.7 mmol/L Normal 3.5-5.1 [facility] Comment on above: Performed By: #### L [id number] ####[facility] ([facility])[address] [place] [address] Protein [Mass/Vol] 6.3 g/dL Normal 6.0-8.3 [facility] Comment on above: Performed By: #### L AB17 ####[facility] (BEAKER)[address] [place] [address] Sodium [Moles/Vol] 139 mmol/L Normal 136-145 [facility] Comment on above: Performed By: #### L AB17 ####[facility] (IVANIA)[address] [place] [address] Urea nitrogen [Mass/Vol] 10 mg/dL Normal 7-25 [facility] Comment on above: Performed By: #### L AB17 ####[facility] ([facility] [place] [address] UREA NITROGEN/CREATININE (MASS RATIO) IN SER/PLAS 13.[address] [facility] Comment on above: Performed By: #### L AB17 ####[facility] (IVANIA)[address] [place] [address] EDNURSon 09-26-2024 EDNURS started having swollen neck lymph nodes. Seen doctor for this and had blood work and having more swelling in the neck and behind the ears. States difficult to swallow. Having body aches and itching. Was told this is because the carbamazepine side effects but the swelling is worse she states. Talking in complete full sentences. Normal [facility] EDPROVon 09-26-2024 EDPROV HPI Chief Complaint [...] Patient deniessick contacts. History provided by: Patient [place] Coma Scale Score: 15 Patient History Past [...] Rhythm: Normal (more content not included)... Normal [facility] MONONUCLEOSIS SCREENon 09-26 HETEROPHILE ANTIBODIES Negative Normal Negative [facility] Comment on above: Performed By: #### L AB482 ####[facility] (BEAKER)[address] [place] [address] Office Visiton 09-23-2024 Follow-up visit [id number] Philomena NATARAJAN 1990 F Date Provider Department Center 09/23/2024 26017-COSXLANNA MARIE HADDAD [facility] PRIM Mona Collins Family History Problem Relation Age of Onset Anxiety disorder Mother Arthritis Mother Depression Mother Alcohol abuse Father Cancer Father Alcohol abuse Sister Anxiety disorder Sister Arthritis Mother's Sister Arthritis Mother's Brother Arthritis Mother's Sister Family Status - Relation Status Age at Mother Father Sister Mother's Sister Mother's Brother Mother's Sister Level of Service:90442 [place] OFFICE/OUTPATIENT ESTABLISHED MOD MDM 30 MIN Reason for Visit and Comments: lymphnode [Other] - Patient states she has swollen lymphnode around jaw/ neck within the past couple days. Right side of abdomen gets tingly and numb. She was dx with Trigeminal neuralgia earlier August. Verified by her neurology. MRI on Friday of head. Normal [facility] MR BRAIN W AND WO CONTRAST [...] report is generated using voice recognition reporting (Uni-Pixel). On occasion, [employer] Technology[employer] erroneously drops words from the report or replaces the spoken word with a similar sounding word. Please call with any questions/concerns regarding the report. Dictated and transcribed 09/27/2024/jf This report has been electronically signed and approved by the interpreting radiologist. Normal Not Available IGP,APTIMA HPV,AGE GDLNon AGE GDLN ACOG TESTING Note . [facility] Comment on above: TESTS RESULT FLAG UN ITS REF RANGE LAB Clinician Provided Cytology Information Source.............Cervix;Endocervix No. of containers..01 ThinPrep Vial Age Algo ACOG Carmen... 30-65 01 FLAG LEGEND: L-Low Normal,H-High Normal,LL-Alert Low,HH-Alert High <-Panic Low,>-Panic High,A-Abnormal,AA-Critical Abnormal Performed at: 01 =G [address] [address] Kiesha Monroe MD, HPV APTIMA Negative Negative [facility] Comment on above: This nucleic acid am plification test detects fourteen high- risk HPV types (16,18,31,33,35,39,45,51,52,56,58,59,66,68) without differentiation. Performed at: = - [address], [place] [id number] [employer] Principal: Kiesha Monroe MD, Phone: [phone] Performed at: - [facility], [place] [address] [employer] Principal: Kiesha Monroe MD, Phone: [phone] IGP, APTIMA HPV, RFX 16/18,45 Note . [facility] Comment on above: TESTS RESULT FLAG UN ITS REF RANGE LAB DIAGNOSIS: 02 NEGATIVE FOR INTRAEPITHELIAL LESION OR MALIGNANCY. Specimen adequacy: 02 Satisfactory for evaluation. Endocervical and/or squamous metaplastic cells (endocervical component) are present. Performed by: 02 Samantha Garcia, Ceiling Insulation Blower (ASCP) . 02 Note: Note 02 The Pap smear is a screening test designed to aid in the detection of premalignant and malignant conditions of the uterine cervix. It is not a diagnostic procedure and should not be used as the sole means of detecting cervical cancer. Both false-positive and false-negative reports do occur. Test Methodology: Note 02 The [place](R) Vascular Radiologist was unable to read this specimen. Therefore a manual review was performed. FLAG LEGEND: L-Low Normal,H-High Normal,LL-Alert Low,HH-Alert High <-Panic Low,>-Panic High,A-Abnormal,AA-Critical Abnormal Performed at: 02 [facility] [address] [place] [address] Kiesha Monroe MD, HPV Genotype Reflex Note 02 Criteria not met, HPV Genotype not performed. Criteria not met, HPV Genotype not performed. BRUSH-SPATULA CERVIX ENDOCERVIX CL[facility] ALL CBC WITH AUTO DIFFon BASOPHILS ABSOLUTE AUTO 0.0 [facility] Basophils/100 WBC (Bld) 0.6 % 0.2 - 2.0 % [facility] Eosinophils/100 WBC (Bld) 3.2 % 0.9 - 7.0 % [facility] Erythrocyte distribution width (RBC) [Ratio] 12.8 % 11.0 - 15.0 % [facility] Hematocrit (Bld) [Volume fraction] 38.3 % 36.0 - 48.0 % [facility] Hemoglobin (Bld) [Mass/Vol] 12.9 g/dL 12.0 - 16.0 g/dL [facility] IMMATURE GRANULOCYTES ABS AUTO 0.02 [facility] Immature granulocytes/100 WBC (Bld) 0.3 % 0.0 - 0.5 % [facility] LYMPHOCYTES ABSOLUTE AUTO 1.7 [facility] Lymphocytes/100 WBC (Bld) 24.0 % 20.5 - 60.0 % [facility] MCH (RBC) [Entitic mass] 29.4 pg 26.7 - 34.0 pg [facility] MCHC (RBC) [Mass/Vol] 33.7 g/dL 29.9 - 35.2 g/dL [facility] MCV (RBC) [Entitic vol] 87.2 fL 81.0 - 99.0 fL [facility] MONOCYTES ABSOLUTE AUTO 0.4 [facility] Monocytes/100 WBC (Bld) 6.1 % 1.7 - 12.0 % [facility] NEUTROPHILS ABSOLUTE AUTO 4.8 [facility] Neutrophils/100 WBC (Bld) 65.8 % 43.0 - 75.0 % [facility] Platelet mean volume (Bld) [Entitic vol] 11.1 fL 9.5 - 13.5 fL [facility] TBH EO # 0.2 [facility] TB PLT [address] [facility] RBC 4.39 [facility] WBC 7.2 [facility] XR pre/post mri xrayon 08-10 XR pre/post mri xray [facility] [address] [place] [address] MRI Report Signed Patient: Kierra Natarajan MR#: [id number] 35 : 1990 Acct:[id number] Age/Sex: 33 / F ADM Date: 08/10/24 Loc: MR Room: Type: [facility] Attending Dr: Ro MAGDALENO Copies to: RASTA Arzola Ordering Provider: RASTA Arzola Date of Service: 08/10/24 MR/MR lumbar spine wo con: R26.9, M54.50, N39.489, R20.0 ([id number]) XR/XR pre/post mri xray: R26.9, M54.50, N39.489, [...] Eben Morel M.D.08/10/2024 8:33 AM Dictation Location: [place] [address] Transcribed By: [facility] 08/10/24 0833 Dictated By: Eben Morel DO 08/10/24 0828 Signed By: 08/10/2433 Normal [facility] MR cervical spine wo conon 0 06-25-2024 MR cervical spine wo con [facility] [address] [place] [address] MRI Report Signed Patient: Kierra Natarajan MR#: [id number] 35 : 1990 Acct:[id number] Age/Sex: 33 / F ADM Date: 06/25/24 Loc: MR Room: Type: [facility] Attending Dr: Ro Patel Adult SLIVER LAPPER-BC Copies to: Ro Patel, RASTA Galvan Ordering [...] Yung Jr., D.O.06/25/2024 6:59 PM Dictation Location: [facility]-15 Transcribed By: [facility] 06/25/241858 Dictated By: Tony Yung Jr, DO 06/25/241852 Signed By: 06/25/241858 Normal [facility] Physician [facility] Folate [Mass/Vol]on 05-31-20 FOLIC ACID 15.0 ng/mL Normal >5.8 [facility] Comment on above: Result Comment: NEW REFERENCE RANGE Performed By: #### 3 016-3, 4-8, 9, 39098-3 #### [facility] ([id number]) [address] [place] [address], [address] [place] [address] #### 56123-1 #### [facility] ([id number]) [address] [place] [address] Methylmalonate [Moles/Vol]on 05-31-2024 Methylmalonic Acid, QN, P 0.15 nmol/mL Normal <=0.40 [facility] Comment on above: Result Comment: NOTE ADDITIONAL INFORMATION This test was developed and its performance characteristics determined by [facility] in a manner consistent with CLIA requirements. This test has not been cleared or approved by the U.S. Food and Drug Administration. Test Performed by: [facility] [place] [address] High [employer] Principal: Michele Lee Ph.D.; CLIA# [id number] Performed By: #### 3 016-3, 2284-8, 2131-9, 25996-8 #### [facility] ([id number]) [address] [place] [address], [address] [place] [address] #### 09316-6 #### [facility] ([id number]) [address] [place] [address] TSH Qnon 05-31-2024 TSH 2.81 uIU/mL Normal 0.49-4.67 [facility] Comment on above: Performed By: #### 3 016-3, 8, 2132-07, 77816-8 #### [facility] ([id number]) [address] [facility], [address] [place] [address] #### 33035-5 #### [facility] ([id number]) [address] [place] [address] VITAMIN B12on 05-31-2024 Cobalamin (Vitamin B12) [Mass/Vol] 297 pg/mL Normal 180-914 [facility] Comment on above: Performed By: #### 3 016-3, 8, 2132-07, 68030-4 #### [facility] ([id number]) [address] [facility], [address] [place] [address] #### 31106-6 #### [facility] ([id number]) [address] [place] [address] Vitamin D+Metabolites [Mass/ Vol]on 05-31-2024 VITAMIN D 25 HYD TOT 27.9 ng/mL Low 30-100 [facility] Comment on above: Result Comment: Vitamin D status 25 [place] Vitamin D Deficiency <20 ng/mL Insufficiency 20-29 ng/mL Sufficiency 30-100 ng/mL Toxicity >100 ng/mL NOTE: A pediatric reference range has not been established by the ekg/ecg technician of this kit. The [place] [employer] recommends a Vitamin D level of = or >20ng/mL in infants and children. Performed By: #### 3 016-3, 8, 2132-07, 44721-3 #### [facility] ([id number]) [address] [facility], [address] [place] [address] #### 92419-8 #### [facility] ([id number]) [address] [place] [address], [place] [address] MR BRAIN W AND WO CONTRAST ( [...] 03-05-2023 WILMA Direct Negative Normal Negative [facility] Comment on above: Performed By: #### A NARF9 #### [facility] [address] [place], [place] [address] Dr. Altagracia Allen C-REACTIVE PROTEINS (HS)on 0 03-05-2023 C-Reactive Protein, Cardiac 2.96 mg/L Normal 0.00-3.00 [facility] Comment on above: Result Comment: Rela tive Risk for Future Cardiovascular Event Low <1.00 Average 1.00 - 3.00 High >3.00 Performed By: #### C RPHS #### [facility] [address] [place] [address] [address] Altagracia Allen CYCLIC CITRULLINATED PEPTIDE AB (CCP)on 03-05-2023 CCP Antibodies IgG/IgA 4 units Normal 0-19 [facility] Comment on above: Result Comment: Nega tive <20 Weak positive 20 - 39 Moderate positive 40 - 59 Strong positive >59 Performed By: #### C CPAB #### [facility] [address] [place] [address] [address] Altagracia Allen HIV 1 AND 2 WITH REFLEXon HIV Screen 4th Generation wRfx Non-Reactive Normal Non Reactive [facility] Comment on above: Result Comment: HIV Negative HIV-1/HIV-2 antibodies and HIV-1 p24 antigen were NOT detected. There is no laboratory evidence of HIV infection. Performed By: #### H IV12 #### [facility] [address] [place] [address] [address] Altagracia Allen MRI TSPINE WO CONon [...] ERMELINDA PAIGE Date: 2023-03-05 14:38 Normal [facility] RHEUMATOID FACTORon 03-05-20 RA Latex Turbid. <10.0 Normal <14.0 [facility] Comment on above: Performed By: #### R F ####[facility] [address] [place], [place] [address]NqDr. Altagracia Allen SED RATE WESTERGRENon 2022 SED RATE 14 mm/hr Normal <=20 [facility] Comment on above: Performed By: #### S EDR #### [facility] [address] [place] [address] [address] Altagracia Allen HEMOGRAM AND PLATELon 2022 Hematocrit (Bld) [Volume fraction] 40.0 % Normal 36.0-48.0 [facility] Comment on above: Performed By: #### H H ####[facility] [address] [place] [address]Dr. Altagracia Allen Hemoglobin (Bld) [Mass/Vol] 13.5 g/dL Normal 12.0-16.0 [facility] Comment on above: Performed By: #### H H ####[facility] [address] [place] [address]Dr. Altagracia Allen MCH (RBC) [Entitic mass] 28.5 pg Normal 26.7-34.0 [facility] Comment on above: Performed By: #### H H ####[facility] [address] [place] [address]Dr. Altagracia Allen MCHC (RBC) [Mass/Vol] 33.8 g/dL Normal 29.9-35.2 [facility] Comment on above: Performed By: #### H H ####[facility] [address] [place] [address]Dr. Altagracia Allen MCV (RBC) [Entitic vol] 84.6 fL Normal 81.0-99.0 [facility] Comment on above: Performed By: #### H H ####[facility] [address] [place] [address]Dr. Altagracia Allen PLT 271 103/ul Normal 150-450 [facility] Comment on above: Performed By: #### H H ####[facility] [address] [place] [address]Dr. Altagracia Allen RBC 4.73 106/ul Normal 4.20-5.40 [facility] Comment on above: Performed By: #### H H ####[facility] [address] [place] [address]Dr. Altagracia Allen WBC 8.0 103/ul Normal 4.0-11.0 [facility] Comment on above: Performed By: #### H H ####[facility] [address] [place] [address]Dr. Altagracia Allen LIPID PROFILEon 02-25-2023 CHOL-HDL RATIO NORM SEE BELOW Normal [facility] Comment on above: Result Comment: 3.3 - 4.4 LOW RISK 4.4 - 7.1 AVERAGE RISK 7.1 - 11.0 MODERATE RISK >11.0 HIGH RISK Performed By: #### L IPID, TSHRFT4, CMP #### [facility] [address] [place] [address] [address] Altagracia Allen Cholesterol [Mass/Vol] 175 mg/dL Normal <=200 [facility] Comment on above: Performed By: #### L IPID, TSHRFT4, CMP #### [facility] [address] [place] [address] [address] Altagracia Allen Cholesterol in HDL [Mass/Vol] 29 mg/dL Critically low 40-60 [facility] Comment on above: Performed By: #### L IPID, TSHRFT4, CMP #### [facility] [address] [place] [address] [address] Altagracia Allen Cholesterol in LDL [Mass/Vol] 127.2 mg/dL Normal [facility] Comment on above: Performed By: #### L IPID, TSHRFT4, CMP #### [facility] [address] [place] [address] [address] Altagracia Allen Cholesterol.total/Cho lesterol in HDL [Mass ratio] 6.0 {ratio} Normal [facility] Comment on above: Performed By: #### L IPID, TSHRFT4, CMP #### [facility] [address] [place] [address] [address] Altagracia Allen HDL NORMAL > or = 60 mg/dl - LO W CARDIOVASCULAR RISK <40 mg/dl - HIGH CARDIOVASCULAR RISK Normal [facility] Comment on above: Performed By: #### L IPID, TSHRFT4, CMP #### [facility] [address] [place] [address] [address] Altagracia Allen LDL CALC NORMAL SEE BELOW Normal [facility] Comment on above: Result Comment: <100 mg/dl OPTIMAL 100 - 129 mg/dl NEAR OR ABOVE OPTIMAL 130 - 159 mg/dl BORDERLINE HIGH 160 - 189 mg/dl HIGH >190 mg/dl VERY HIGH Performed By: #### L IPID, TSHRFT4, CMP #### [facility] [address] [place] [address] [address] Altagracia Allen Triglyceride [Mass/Vol] 94 mg/dL Normal <=150 [facility] Comment on above: Performed By: #### L IPID, TSHRFT4, CMP #### [facility] [address] [place] [address] [address] Altagracia Allen VLDL CALC 18.8 mg/dL Normal [facility] Comment on above: Performed By: #### L IPID, TSHRFT4, CMP #### [facility] [address] [place] [address] [address] Altagracia Allen PROF 14(COMP METB)on 023 Albumin [Mass/Vol] 3.6 g/dL Normal 3.4-5.0 [facility] Comment on above: Performed By: #### L IPID, TSHRFT4, CMP #### [facility] [address] [place] [address] [address] Altagracia Allen Albumin/Globulin [Mass ratio] 1.1 {ratio} Normal [facility] Comment on above: Performed By: #### L IPID, TSHRFT4, CMP #### [facility] [address] [place] [address] [address] Altagracia Allen ALP [Catalytic activity/Vol] 72 U/L Normal 46-116 [facility] Comment on above: Performed By: #### L IPID, TSHRFT4, CMP #### [facility] [address] [place] [address] [address] Altagracia Allen ALT [Catalytic activity/Vol] 27 U/L Normal 14-59 [facility] Comment on above: Performed By: #### L IPID, TSHRFT4, CMP #### [facility] [address] [place] [address] [address] Altagracia Allen Anion gap [Moles/Vol] 13.8 mmol/L Normal [facility] Comment on above: Performed By: #### L IPID, TSHRFT4, CMP #### [facility] [address] [place] [address] Dr. Altagracia Allen AST [Catalytic activity/Vol] 17 U/L Normal 15-37 [facility] Comment on above: Performed By: #### L IPID, TSHRFT4, CMP #### [facility] [address] [place] [address] Dr. Altagracia Allen Bilirubin [Mass/Vol] 0.2 mg/dL Normal 0.2-1.0 [facility] Comment on above: Performed By: #### L IPID, TSHRFT4, CMP #### [facility] [address] [place] [address] Dr. Altagracia Allen Calcium [Mass/Vol] 8.6 mg/dL Normal 8.5-10.1 [facility] Comment on above: Performed By: #### L IPID, TSHRFT4, CMP #### [facility] [address] [place] [address] Dr. Altagracia Allen Chloride [Moles/Vol] 106 mmol/L Normal 98-107 [facility] Comment on above: Performed By: #### L IPID, TSHRFT4, CMP #### [facility] [address] [place] [address] Dr. Altagracia Allen CO2 [Moles/Vol] 23.7 mmol/L Normal 21.0-32.0 [facility] Comment on above: Performed By: #### L IPID, TSHRFT4, CMP #### [facility] [address] [place] [address] Dr. Altagracia Allen Creatinine [Mass/Vol] 0.76 mg/dL Normal 0.55-1.02 [facility] Comment on above: Performed By: #### L IPID, TSHRFT4, CMP #### [facility] [address] [place] [address] Dr. Altagracia Allen EGFR-AF UGANDAN >60 Normal >=60 [facility] Comment on above: Performed By: #### L IPID, TSHRFT4, CMP #### [facility] [address] [place] [address] [address] Altagracia Allen EGFR-NON AF UGANDAN >60 Normal >=60 [facility] Comment on above: Performed By: #### L IPID, TSHRFT4, CMP #### [facility] [address] [place] [address] [address] Altagracia Allen Globulin (S) [Mass/Vol] 3.4 g/dL Normal [facility] Comment on above: Performed By: #### L IPID, TSHRFT4, CMP #### [facility] [address] [place] [address] Dr. Altagracia Allen Glucose [Mass/Vol] 92 mg/dL Normal 74-106 [facility] Comment on above: Performed By: #### L IPID, TSHRFT4, CMP #### [facility] [address] [place] [address] [address] Altagracia Allen Potassium [Moles/Vol] 3.5 mmol/L Normal 3.5-5.1 [facility] Comment on above: Performed By: #### L IPID, TSHRFT4, CMP #### [facility] [address] [place] [address] Dr. Altagracia Allen Protein [Mass/Vol] 7.0 g/dL Normal 6.4-8.2 [facility] Comment on above: Performed By: #### L IPID, TSHRFT4, CMP #### [facility] [address] [place] [address] Dr. Altagracia Allen Sodium [Moles/Vol] 140 mmol/L Normal 136-145 [facility] Comment on above: Performed By: #### L IPID, TSHRFT4, CMP #### [facility] [address] [place] [address] Dr. Altagracia Allen Urea nitrogen [Mass/Vol] 13.0 mg/dL Normal 7.0-18.0 [facility] Comment on above: Performed By: #### L IPID, TSHRFT4, CMP #### [facility] [address] [place] [address] [address] Altagracia Allen Urea nitrogen/Creatinine [Mass ratio] 17.1 mg/mg Normal [facility] Comment on above: Performed By: #### L IPID, TSHRFT4, CMP #### [facility] [address] [place] [address] [address] Altagracia Allen TSH W/ REFLEX TO FT4on 02-25 TSH 2.830 uIU/mL Normal 0.358-3.740 [facility] Comment on above: Performed By: #### L IPID, TSHRFT4, CMP #### [facility] [address] [place] [address] [address] Altagracia Allen XR TSPINE 3 VIEWSon [...] ERMELINDA PAIGE Date: 2023-02-14 07:59 Normal [facility] CBC W/DIFFon 01-23-2021 ABS BASOPHILS 0.1 10*3/uL Normal 0.0-0.2 [facility] Comment on above: Performed By: #### 5 0103 #### [facility] [address] [facility] [place] [address], [facility] ABS IMM GRANS 0.0 10*3/uL Normal 0.0-0.2 [facility] Comment on above: Performed By: #### 5 0103 #### [facility] [address] [place] [address], [facility] ABS NEUTROPHILS 4.9 10*3/uL Normal 1.6-7.6 [facility] Comment on above: Performed By: #### 5 0103 #### [facility] [address] [place] [address], [facility] Basophils/100 WBC (Bld) 0.7 % Normal 0.0-1.[address] [facility] Comment on above: Performed By: #### 5 0103 #### [facility] [address] [place] [address], [facility] Eosinophils (Bld) [#/Vol] 0.3 10*3/uL Normal 0.0-0.[address] [facility] Comment on above: Performed By: #### 5 0103 #### [facility] [address] [place] [address], [facility] Eosinophils/100 WBC (Bld) 3.6 % Normal 0.0-6.[address] [facility] Comment on above: Performed By: #### 5 0103 #### [facility] [address] [place] [address], [facility] Erythrocyte distribution width (RBC) [Ratio] 13.2 % Normal 11.5-15.[address] [facility] Comment on above: Performed By: #### 5 0103 #### [facility] [address] [place] [address], [facility] Hematocrit (Bld) [Volume fraction] 44.2 % Normal 36.0-45.[address] [facility] Comment on above: Performed By: #### 5 0103 #### [facility] [address] [place] [address], [facility] Hemoglobin (Bld) [Mass/Vol] 14.4 g/dL Normal 12.0-15.[address] [facility] Comment on above: Performed By: #### 5 3 #### [facility] [address] [place] [address], [facility] IMMATURE GRANS 0.4 % Normal 0.0-1.0 [facility] Comment on above: Performed By: #### 5 0103 #### [facility] [address] [place] [address], [facility] Lymphocytes (Bld) [#/Vol] 1.8 10*3/uL Normal 1.2-4.[address] [facility] Comment on above: Performed By: #### 5 0103 #### [facility] [address] [place] [address], [facility] Lymphocytes/100 WBC (Bld) 23.3 % Normal 20.0-45.[address] [facility] Comment on above: Performed By: #### 5 0103 #### [facility] [address] [facility] [place] [address], [facility] MCH (RBC) [Entitic mass] 29.1 pg Normal 27.0-33.[address] [facility] Comment on above: Performed By: #### 5 0103 #### [facility] [address] [facility] MCHC (RBC) [Mass/Vol] 32.6 g/dL Normal 32.0-35.[address] [facility] Comment on above: Performed By: #### 5 0103 #### [facility] [address] [place] [address], [facility] MCV (RBC) [Entitic vol] 89.3 fL Normal 82.0-98.[address] [facility] Comment on above: Performed By: #### 5 0103 #### [facility] [address] [place] [address], [facility] Monocytes (Bld) [#/Vol] 0.6 10*3/uL Normal 0.1-1.[address] [facility] Comment on above: Performed By: #### 5 3 #### [facility] [address] [place] [address], [facility] MONOS 7.6 % Normal 5.0-12.[address] [facility] Comment on above: Performed By: #### 5 0103 #### [facility] [address] [place] [address], [facility] Neutrophils/100 WBC (Bld) 64.4 % Normal 40.0-72.[address] [facility] Comment on above: Performed By: #### 5 0103 #### [facility] [address] [place] [address], [facility] Nucleated RBC/100 WBC (Bld) [Ratio] 0 % Normal 0-[address] [facility] Comment on above: Performed By: #### 5 0103 #### [facility] [address] [place] [address], [facility] PLAT CNT 264 10*3/uL Normal 150-400 The [facility] Comment on above: Performed By: #### 5 0103 #### [facility] [address] [place] [address], [facility] RBC (Bld) [#/Vol] 4.95 10*6/uL Normal 3.80-5.00 The [facility] Comment on above: Performed By: #### 5 0103 #### [facility] [address] [facility] [place] [address], [facility] WBC (Bld) [#/Vol] 7.59 10*3/uL Normal 4.00-10.60 The [facility] Comment on above: Performed By: #### 5 0103 #### [facility] [address] [place] [address], [facility] COMP METABOLIC PANELon 01-23 Albumin [Mass/Vol] 4.4 g/dL Normal 3.5-5.7 [facility] Comment on above: Performed By: #### 4 6413, 73405, 08281 #### [facility] [address] [place] [address], [facility] ALKALINE PHOSPH 64 IU/L Normal 34-104 The [facility] Comment on above: Performed By: #### 4 6413, 30708, 98544 #### [facility] [address] [place] [address], [place] ALT [Catalytic activity/Vol] 13 U/L Normal 7-[address] [facility] Comment on above: Performed By: #### 4 6413, 61877, 56586 #### [facility] [address] [place] [address], [place] AST [Catalytic activity/Vol] 14 U/L Normal 13-[address] [facility] Comment on above: Performed By: #### 4 6413, 95201, 23755 #### [facility] [address] [place] [address], [place] Bilirubin [Mass/Vol] 0.4 mg/dL Normal 0.3-1.[address] [facility] Comment on above: Performed By: #### 4 6413, 47974, 28832 #### [facility] [address] [place] [address], [place] Calcium [Mass/Vol] 9.2 mg/dL Normal 8.6-10.3 The [facility] Comment on above: Performed By: #### 4 6413, 84214, 96367 #### [facility] [address] [place] [address], [place] Chloride [Moles/Vol] 105 mmol/L Normal 98-[address] [facility] Comment on above: Performed By: #### 4 6413, 17669, 80365 #### [facility] [address] [place] [address], [place] CO2 [Moles/Vol] 28 mmol/L Normal 21-31 [facility] Comment on above: Performed By: #### 4 6413, 36405, 60181 #### [facility] [address] [place] [address], [place] Creatinine [Mass/Vol] 0.90 mg/dL Normal 0.60-1.[address] [facility] Comment on above: Performed By: #### 4 6413, 69219, 84528 #### [facility] [address] [place] [address], [place] GFR/1.73 sq M predicted among blacks MDRD (S/P/Bld) [Vol rate/Area] mL/min/{1.73_m2} Normal >[address] [facility] Comment on above: Performed By: #### 4 6413, 47868, 86337 #### [facility] [address] [place] [address], [place] GFR/1.73 sq M predicted among non-blacks MDRD (S/P/Bld) [Vol rate/Area] mL/min/{1.73_m2} Normal >[address] [facility] Comment on above: Performed By: #### 4 6413, 10228, 68592 #### [facility] [address] [place] [address], [place] Glucose [Mass/Vol] 86 mg/dL Normal 70-100 [facility] Comment on above: Performed By: #### 4 6413, 82308, 95070 #### [facility] [address] [place] [address], [place] Potassium [Moles/Vol] 3.9 mmol/L Normal 3.5-5.[address] [facility] Comment on above: Performed By: #### 4 6413, 09593, 55549 #### [facility] [address] [place] [address], [place] Protein [Mass/Vol] 7.1 g/dL Normal 6.0-8.3 [facility] Comment on above: Performed By: #### 4 6413, 82310, 74681 #### [facility] [address] [place] [address], [place] Sodium [Moles/Vol] 138 mmol/L Normal 136-145 The [facility] Comment on above: Performed By: #### 4 6413, 12939, 17412 #### [facility] [address] [place] [address], [facility] Urea nitrogen [Mass/Vol] 11 mg/dL Normal 7-[address] [facility] Comment on above: Performed By: #### 4 6413, 14659, 16535 #### [facility] [address] [place] [address], [facility] LIPID PROFILEon 01-23-2021 Cholesterol [Mass/Vol] 162 mg/dL Normal 120-[address] [facility] Comment on above: Result Comment: CHOL ESTEROL REFERENCE RANGE: 20 YEARS AND OLDER CARDIOVASCULAR RISK Less than 200 mg/dl Low Risk 200 to 239 mg/dl Borderline Risk 240 mg/dl and greater High Risk Performed By: #### 4 6413, 38377, 28830 #### [facility] [address] [place] [address], [facility] Cholesterol in HDL [Mass/Vol] 38 mg/dL Normal 23-[address] [facility] Comment on above: Result Comment: Slig ht variation in normal range could be due to gender and/or age. HDL CHOLESTEROL REFERENCE RANGE: 20 years and older Cardiovascular Risk > or =60 mg/dL Desirable 40 TO 59 mg/dL Low Risk <40 mg/dL High Risk Performed By: #### 4 6413, 89341, 54258 #### [facility] [address] [place] [address], [place] Cholesterol in LDL [Mass/Vol] 111 mg/dL Normal 0-[address] [facility] Comment on above: Result Comment: LDL IS A CALCULATION LDL IS ONLY VALID IF THE TRIG IS LESS THAN 400. Performed By: #### 4 6413, 22497, 88708 #### [facility] [address] [place] [address], [place] Cholesterol.total/Cho lesterol in HDL [Mass ratio] 4.3 {ratio} Normal 0.0-4.[address] [facility] Comment on above: Performed By: #### 4 6413, 61218, 70802 #### [facility] [address] NON-HDL CHOLESTEROL 124 mg/dL Normal The [facility] Comment on above: Performed By: #### 4 6413, 68022, 83805 #### [facility] [address] Triglyceride [Mass/Vol] 66 mg/dL Normal 40-[address] [facility] Comment on above: Result Comment: TRIG LYCERIDE REFERENCE RANGE: 20 YEARS AND OLDER CARDIOVASCULAR RISK LESS THAN 150 mg/dl LOW RISK 150 TO 199 mg/dl BORDERLINE RISK 200 mg/dl AND GREATER HIGH RISK Performed By: #### 4 6413, 12898, 46568 #### [facility] [address] [place] [address], [facility] VLDL CHOL 13 mg/dL Normal 0-[address] [facility] Comment on above: Performed By: #### 4 6413, 89738, 93889 #### [facility] [address] [facility] TSH3 WITH REFLEX FT4on 01-23 TSH 3RD GENERATION 1.73 uIU/mL Normal 0.34-5.60 The [facility] Comment on above: Performed By: #### 4 6413, 03216, 59389 #### [facility] [address] Vital Signs Date Time Vital Sign Value Performing Clinician Faci lity 10-13-2024 13:32-0500 Body mass index (BMI) [Ratio] 35.44 kg/m2 Barb CLOUD Work Phone: [facility] 10-13-2024 13:32-0500 Body weight 108.86 kg Barb CLOUD Work Phone: [facility] 10-13-2024 13:32-0500 Diastolic blood pressure 76 mm[Hg] Barb CLOUD Work Phone: [facility] 10-13-2024 13:32-0500 Systolic blood pressure 128 mm[Hg] Barb CLOUD Work Phone: [facility] 10-01-2024 08:25-0500 Body height 175.3 cm Sudheer Chacon MD Work Phone: [facility] 10-01-2024 08:25-0500 Body mass index (BMI) [Ratio] 35.59 kg/m2 Sudheer Chacon MD Work Phone: [facility] 10-01-2024 08:25-0500 Body weight 109.32 kg Sudheer Chacon MD Work Phone: [facility] 10-01-2024 08:25-0500 Diastolic blood pressure 80 mm[Hg] Sudheer Chacon MD Work Phone: [facility] 10-01-2024 08:25-0500 Systolic blood pressure 121 mm[Hg] Sudheer Chacon MD Work Phone: [facility] 09-17-2024 09:49-0400 Body height 175.3 cm Sudheer Chacon MD Work Phone: [facility] 09-17-2024 09:49-0400 Body mass index (BMI) [Ratio] 35.15 kg/m2 Sudheer Chacon MD Work Phone: [facility] 09-17-2024 09:49-0400 Body weight 107.96 kg Sudheer Chacon MD Work Phone: [facility] 09-17-2024 09:49-0400 Diastolic blood pressure 88 mm[Hg] Sudheer Chacon MD Work Phone: [facility] 09-17-2024 09:49-0400 Systolic blood pressure 137 mm[Hg] Sudheer Chacon MD Work Phone: [facility] 09-13-2024 13:39-0400 Body height 172.7 cm Ro Patel NP Work Phone: [facility] 09-13-2024 13:39-0400 Body mass index (BMI) [Ratio] 35.81 kg/m2 Ro Patel SLIVER LAPPER Work Phone: [facility] 09-13-2024 13:39-0400 Body weight 106.82 kg Ro Patel [employer] Work Phone: [facility] 09-13-2024 13:39-0400 Diastolic blood pressure 78 mm[Hg] Ro Patel [employer] Work Phone: [facility] 09-13-2024 13:39-0400 Heart rate 78 /min Ro Patel [employer] Work Phone: [facility] 09-13-2024 13:39-0400 Systolic blood pressure 133 mm[Hg] Ro Patel SLIVER [employer]PER Work Phone: [facility] 09-08-2024 10:53-0400 Body mass index (BMI) [Ratio] 36.31 kg/m2 Jeremy Addie DO Work Phone: [facility] 09-08-2024 10:53-0400 Body weight 108.32 kg Jeremy Addie DO Work Phone: [facility] 09-08-2024 10:53-0400 Diastolic blood pressure 70 mm[Hg] Jeremy Addie DO Work Phone: [facility] 09-08-2024 10:53-0400 Systolic blood pressure 120 mm[Hg] Jeremy Addie DO Work Phone: [facility] Healthcare Encounters Encounter Date Encounter Type Care Provider Facility Start: 10-14-2024 End: [facility] Start: 10-13-2024 End: 10-13-2024 Bamboo flowsheet Barb CLOUD Work Phone: [facility] Start: 10-13-2024 End: 10-13-2024 Bamboo flowssanjana CLOUD Work Phone: [facility] Start: 10-13-2024 End: 10-13-2024 Office outpatient visit 10 minutes Barb CLOUD Work Phone: [facility] Comment on above: Encounter to discuss test results Start: 10-13-2024 End: 10-13-2024 ambulatory BARB STALLINGS Not Available Start: 10-10-2024 End: 10-10-[address] [facility] Start: 10-06-2024 End: 10-06-[address] [facility] Start: 10-01-2024 End: 10-01-2024 Bamboo flowsheet Sudheer Chacon MD Work Phone: [facility] Start: 10-01-2024 End: 10-01-2024 Clinisync Result Encounter Sudheer Chacon MD Work Phone: [facility] External [facility] Unsolicited Start: 10-01-2024 End: 10-01-2024 Clinisync Result Encounter Sudheer Chacon MD Work Phone: [facility] Unsolicited Start: 10-01-2024 End: 10-01-2024 ambulatory Sudheer Chacon Facility:[facility] Start: 10-01-2024 End: 10-01-2024 Patient encounter procedure Sudheer Chacon [facility] Start: 10-01-2024 End: 10-01-2024 Office outpatient visit 25 minutes Sudheer Chacon MD Work Phone: [facility] Comment on above: LAD (lymphadenopathy ) of left cervical region (Primary Dx) Start: 10-01-2024 End: 10-01-2024 ambulatory SUDHEER CHACON Not Available Start: 09-27-2024 End: 09-27-2024 ambulatory RO PATEL Not Available Start: 09-27-2024 End: 09-27-2024 Telephone encounter Toñito Alvarez MA [facility] [place] [facility] Start: 09-26-2024 End: 09-26-2024 Emergency department patient visit JIMMIE ANTOINE [facility] Start: 09-23-2024 End: 09-23-[address] [facility] Start: 09-17-2024 End: 09-17-2024 Bamboo flowsheet Sudheer Chacon MD Work Phone: [facility] Start: 09-17-2024 End: 09-17-2024 Bamboo flowsheet Sudheer Chacon MD Work Phone: [facility] Start: 09-17-2024 End: 09-17-2024 Office outpatient new 45 minutes Sudheer Chacon MD Work Phone: [facility] Comment on above: Right facial pain (P rimary Dx) Start: 09-17-2024 End: 09-17-2024 ambulatory SUDHEER CHACON Not Available Start: 09-15-2024 End: 09-15-2024 Telephone encounter Emanuel Denney MA [facility] [place] [address] Start: 09-14-2024 End: 09-14-2024 Telephone encounter Toñito Alvarez MA [facility] Start: 09-13-2024 End: 09-13-2024 Bamboo flowsheet Ro C Windnagel [employer] Work Phone: [facility] Start: 09-13-2024 End: 09-13-2024 Bamboo flowsheet Ro C Windnagel [employer] Work Phone: [facility] Start: 09-13-2024 End: 09-13-2024 Office outpatient visit 40 minutes Ro C Windnagel [employer] Work Phone: [facility] Comment on above: Occipital neuralgia of right side (Primary Dx); Trigeminal neuralgia of right side of face (CMS/HCC); Diplopia Start: 09-13-2024 End: 09-13-2024 ambulatory RO C WINDNAGEL Not Available Start: 09-08-2024 End: 09-08-2024 Office outpatient visit 15 minutes Jeremy Addie DO Work Phone: [facility] Comment on above: Irregular periods; PCOS (polycystic ovarian syndrome); Female infertility; Mood disorder (CMS/HCC) Start: 09-08-2024 End: 09-08-2024 ambulatory JEREMY REAL Not Available Start: 08-26-2024 End: 08-30-2024 Telephone encounter Charlotte Link APRN-CABINET PROFESSIONAL Work Phone: [facility] Start: 08-24-2024 End: 08-24-2024 Clinisync Result Encounter Barb CLOUD Work Phone: [facility] Unsolicited Start: 08-24-2024 End: 08-24-2024 Clinisync Result Encounter Barb Malone PA Work Phone: [facility] Unsolicited Start: 08-19-2024 End: 08-25-2024 Clinisync Result Encounter Barb Marly AI Work Phone: [facility] Unsolicited Start: 08-19-2024 End: 08-25-2024 Clinisync Result Encounter Barb Marly AI Work Phone: [facility] Unsolicited Start: 08-19-2024 End: 08-19-2024 ambulatory BARB STALLINGS Not Available Start: 08-17-2024 End: 08-17-2024 ambulatory RO C CARLOSNAGEL Not Available Start: 08-10-2024 End: 08-10-2024 Patient encounter procedure [facility] Ro Windnagel Work Phone: [facility] [place] Work Phone: Start: 08-10-2024 End: 08-10-2024 ambulatory NON STAFF [facility] Work Phone: Start: 07-01-2024 End: 07-01-2024 ambulatory RO C WINDNAGEL Not Available Start: 06-25-2024 End: 06-25-2024 Patient encounter procedure ANP-BC Ro Windnagel Work Phone: [facility] Work Phone: Start: 06-25-2024 End: 06-25-2024 ambulatory NON STAFF [facility] Work Phone: Start: 06-08-2024 End: 06-08-2024 ambulatory RO C WINDNAGEL Not Available Start: 06-01-2024 End: 06-01-2024 ambulatory RO C WINDNAGEL Not Available Start: 05-31-2024 End: 05-31-2024 ambulatory RO C WINDNAGEL [facility] Start: 05-13-2024 End: 05-13-2024 ambulatory RO C WINDNAGEL Not Available Start: 04-29-2024 End: 04-29-2024 [address] RO C WINDNAGEL Not Available Start: 02-17-2024 End: 02-17-2024 ambulatory BRUNO RYAN Not Available Start: 02-03-2024 End: 02-03-2024 ambulatory JEREMY REAL Not Available Start: 07-08-2023 End: 07-08-2023 Patient encounter procedure CAREN FULTON [facility] Start: 03-04-2023 End: 03-05-2023 ambulatory SAJAN SHAMMO Facility:[facility] Start: 03-01-2023 Encounter for genera l adult medical examination without abnormal findings [facility] Start: 02-25-2023 End: 02-26-2023 ambulatory SAJAN SHAMMO Facility:[facility] Start: 02-25-2023 End: 02-26-2023 Encounter for general adult medical examination without abnormal findings SAJAN SHAMIA Facility:[facility] Start: 02-13-2023 End: 02-14-2023 ambulatory SAJAN SHAMMO Facility:[facility] Procedures Date Procedure Procedure Detail Performing Clinician Start: 10-01-2024 [facility] CBC W/ AUTO DIFF H bree Chacon MD Work Phone: Start: 08-24-2024 ALL CBC WITH AUTO DIFF Barb CLOUD Work Phone: Start: 08-19-2024 IGP,APTIMA HPV,AGE GDLN Barb CLOUD Work Phone: Start: 08-19-2024 Microscopic observat ion [Identifier] in Cervix by Cyto stain Jeremy Addie Work Phone: Start: 08-10-2024 MR lumbar spine wo con ANP-BC Ro Patel Work Phone: Start: 08-10-2024 XR pre/post mri xray AN P-BC Ro Jann Work Phone: Start: 06-25-2024 MRI of cervical spin e without contrast ANP-BC Ro Johnsonnagel Work Phone: Start: 07-22-2022 Microscopic observat ion [Identifier] in Cervix by Cyto stain Barb CLOUD Work Phone: Start: 07-01-2022 Microscopic observat ion [Identifier] in Cervix by Cyto stain Charlotte Link ELECTRIFICATION ADVISER-CABINET PROFESSIONAL Work Phone: Dilation and curettage RUBI FRANCES FULTON Hysterectomy CAREN FULTON Tonsillectomy CAREN FULTON Plan of Treatment Date Care Activity Detail Author Start: 08-21-2028 Screening for malign ant neoplasm of cervix [facility] Start: 08-19-2027 Screening for malign ant neoplasm of cervix Pap Smear [facility] Start: 07-22-2025 Screening for malign ant neoplasm of cervix Pap Smear [facility] Start: 07-01-2025 Screening for malign ant neoplasm of cervix Pap Smear [facility] Start: 02-15-2025 End: 02-15-2025 Patient encounter procedure 02/15/2025 9:20 AM EDT Office Visit [facility] [address] [place] [address] Bruno Ryan MD [address] [place] [address] [facility] Start: 11-09-2024 End: 11-09-2024 Patient encounter procedure 11/09/2024 3:00 PM EST [facility] [address] [place] [address] Zac Tay, DO [address] [place] [address] [facility] Start: 10-19-2024 End: 10-19-2024 Patient encounter procedure 10/19/2024 10:20 AM EST Office Visit [facility] [place] [address] [place] [phone] Francine Mallory PA [address] [place] [address] [facility] [place] [facility] Start: 10-18-2024 End: 10-18-2024 Patient encounter procedure 10/18/2024 9:40 AM EST Office Visit [facility] [address] [facility] [address] [facility] [place] [phone] Sudheer Chacon MD [address] [facility] [address] [place] [address] [facility] Start: 10-13-2024 End: 10-13-2024 Patient encounter procedure 10/13/2024 1:10 PM EST Office Visit [facility] [address] [place] [address] Barb Stallings PA [address] [facility] [place] [address] Arrived [facility] Comment on above: Arrived Start: 10-07-2024 End: 10-07-2024 Patient encounter procedure 10/07/2024 12:20 PM EST [facility] [address] [place] [address] Francine Mallory PA [address] [place], [place] [id number] [facility] Start: 10-05-2024 End: 10-05-2024 Patient encounter procedure 10/05/2024 8:10 AM EST Office Visit [facility] [address] [facility] [address] Jeremy Rael, DO [address] [place], [place] [id number] [facility] Start: 10-01-2024 End: 10-01-2024 Patient encounter procedure 10/01/2024 8:30 AM EST Office Visit [facility] [address] [facility] [place] [address] Sudheer Chacon MD [address] [facility] [address] [place] [address] Arrived [facility] Comment on above: Arrived Start: 09-27-2024 End: 09-27-2024 Professional / ancillary services management 09/27/2024 3:15 PM EST Ancillary Procedure [facility] [address] [place] [address] [facility] Start: 09-17-2024 End: 09-17-2024 Patient encounter procedure [facility] Comment on above: Arrived Start: 09-13-2024 End: 09-13-2024 Patient encounter procedure 09/13/2024 1:40 PM EDT Office Visit [facility] [address] [facility] [address] [place] [address] Ro Patel, SLIVER LAPPER [address] [place] [address] Arrived [facility] Comment on above: Arrived Start: 09-08-2024 End: 09-08-2024 Patient encounter procedure 09/08/2024 11:10 AM EDT Office Visit [facility] [address] [facility] [address] Jeremy Real, [address] [place] [address] [facility] Start: 07-25-2024 COVID-19 Vaccine ( season) COVID-19 Vaccine ( season) [facility] Start: 07-25-2024 Influenza vaccination [facility] Start: 07-23-2023 Adult BMI Screening Adult BMI Screen ing [facility] Start: 2001 Depression Screening Depression Scre ening [facility] Start: 2001 Tobacco Screening Tobacco Screening [facility] Start: 2000 DTaP,Tdap and Td Vaccines (6 - Tdap) DTaP,Tdap and Td Vaccines (6 - Tdap) [facility] MR Brain WO and W contrast IV MR brain w and wo contrast routine Imaging High Priority Trigeminal neuralgia of right side of face (CMS/HCC) Ordered: 09/13/2024 [facility] Healthcare Work Phone: Comment on above: Ordered: 09/13/2024 Immunizations Immunization Date Immunization Notes Care Provider Rick burns 08-25-2013 influenza virus vaccine, unspecified formulation Charlotte AUSTIN Work Phone: [facility] Payers Date Payer Category Payer Self-pay 2022 [facility] BCBS [id number] 2022 Unknown [id number] 1989 Unknown [id number] 2.16.840.1.019162.3.579. 2.593 1989 Unknown [id number] 2.16.840.1.123089.3.579. 2.593 1989 Unknown [id number] 2.16.840.1.812952.3.579. 2.593 1989 Unknown [id number] 2.16.840.1.268008.3.579. 2.1286 1989 Unknown [id number] 2.16.840.1.866065.3.579. 2.727 1989 Unknown [id number] 2.16.840.1.328994.3.579. 2.1259 1989 Unknown [id number] 2.16.840.1.849885.3.579. 2.1259 1989 Unknown [id number] 2.16.840.1.812672.3.579. 2.1259 1989 Unknown [id number] 2.16.840.1.613386.3.579. 2.1259 1989 Unknown [id number] 2.16.840.1.104901.3.579. 2.1259 1989 Unknown [id number] 2.16.840.1.581418.3.579. 2.1259 1989 Unknown [id number] 2.16.840.1.754504.3.579. 2.1259 1989 Unknown [id number] 2.16.840.1.663109.3.579. 2.1259 1989 Unknown [id number] 2.16.840.1.861358.3.579. 2.1259 1989 Unknown [id number] 2.16.840.1.359151.3.579. 2.1259 1989 Unknown [id number] 2.16.840.1.891553.3.579. 2.1259 1989 Unknown [id number] 2.16.840.1.490221.3.579. 2.1259 1989 Unknown [id number] 2.16.840.1.654475.3.579. 2.9 1989 Unknown [id number] 2.16.840.1.031066.3.579. 2.1259 1989 Unknown [id number] 2.16.840.1.523080.3.579. 2.1259 1959 Unknown [id number] 1959 Unknown [id number] Unknown [id number] 2.16.840.1.366942.3.579. 2.531 Unknown [id number] 2.16.840.1.408236.3.579. 2.531 Social History Date Type Detail Facility Tobacco smoking status [facility] [place] Start: 04-28-2024 End: 10-13-2024 Sex Assigned At Female [facility] Start: 1990 Sex Assigned At Female [facility] [place] Start: 07-01-2024 Tobacco smoking status NHIS Ex-smoker [facility] Start: 07-25-2007 End: 06-24-2023 History of tobacco use Current smoker [facility] Start: 07-25-2007 End: 06-24-2023 History of tobacco use Cigarette Smoker [facility] Start: 07-01-2024 End: 10-13-2024 Cigarettes smoked current (pack per day) - Reported 1.5 [facility] Start: 07-12-2019 End: 07-01-2024 Tobacco use and exposure Smokeless tobacco non-user [facility] Start: 08-19-2024 End: 10-13-2024 Alcoholic beverage intake Current drinker of alcohol [...] [facility] Start: 12-25-2016 Tobacco smoking status NHIS Smokes tobacco daily [facility] Childcare Unknown [facility] Start: 07-01-2022 Alcohol Comment rare [facility] Clinical Notes 08-26-2024 to 10-14-2024 AI Echols - 10/13/2024 1:10 PM Larry Chacon MD - 10/01/2024 8:30 AM ESTTelephone Encounter - Ro Patel NP - 09/27/2024 10:49 AM Elvia Mckenna LPN - 09/08/2024 11:10 AM EDT Note Date & Type Note Facility 10-14-2024 Note Family Medicine - Ou tpatient visit 10/14/2024 HPI Kierra NATARAJAN is a 33 y.o. female who presents to the clinic today to discuss trigeminal neuralgia, Tegretol and lymphadenopathy. It has been a crazy couple of months. She was diagnosed with trigeminal neuralgia and started on Tegretol. Within a week of that started have some lymphadenopathy. She has been to the ER couple times and has seen ENT couple times. She has been on 3 rounds of antibiotics and a couple rounds of steroids. She has had a brain MRI September 27 which showed multifocal bilateral small cervical lymph nodes and parotid enhancing lesions which were nonspecific. Recommended to see ENT. They ordered CT scan soft tissue of the neck which showed no suspicious findings over the right parotid gland and also multiple small lymph nodes within the neck. Her calcium was a little low September 26 at 8.3. Encouraged her to make sure she is taking her D3 daily as recent blood work showed that her D3 was low. ENT ordered WBC, ESR and CRP and depending on what that and the CT scan look like possible fine-needle aspiration. He also recommended her to see hematology. The white blood cell count, ESR and CRP are normal. She did some research and she thinks that the Tegretol might be causing the lymphadenopathy. Wanting to get off of the Tegretol. Did explain to her that stopping that abruptly could cause her trigeminal neuralgia to be come out of control. We also discussed her seeing neurology. She has had some right sided neuropathy and right arm neuropathy that needs to be looked at. She is thinking about going somewhere [facility] as she lives in [place]. She also experiences migraines and they tend to be around the front part of her face. Discussed sinus pressure. Discussed allergies. Current and New Medications started: Current Outpatient Medications on File Prior to Visit Medication Sig AMOXICILLIN 100 MG-POTASSIUM CLAVULANATE 14.25 MG CHEWABLE SPLIT TABLET (Augmentin) baclofen (Lioresal) 5 mg tablet Take 5 mg by mouth three times daily. PRN carBAMazepine (Carbatrol) 300 mg 12 hr capsule Take 300 mg by mouth two times daily. fluconazole (Diflucan) 150 mg tablet Take 150 mg by mouth 1 (one) time. ibuprofen 800 mg tablet Take 800 mg by mouth. niacin 500 mg ER capsule Take 500 mg by mouth in the morning. Do not crush, chew, or split. NON FORMULARY Take by mouth. Patient taking Vitamin D3 unknow dose No current facility-administered medications on file prior to visit. Review of Systems Review of systems unremarkable unless stated below Review of Systems Constitutional: Negative for fatigue, fever and unexpected weight change. HENT: Positive for sinus pressure. Negative for congestion, dental problem, ear discharge, ear pain, hearing loss, sinus pain, sore throat, trouble swallowing and voice change. Eyes: Negative for pain, discharge, itching and visual disturbance. Respiratory: Negative for cough, shortness of breath and wheezing. Cardiovascular: Negative for chest pain, palpitations and leg swelling. Gastrointestinal: Negative for abdominal pain, blood in stool, constipation, diarrhea, nausea and vomiting. Endocrine: Negative for cold intolerance and heat intolerance. Genitourinary: Negative for difficulty urinating, dysuria, frequency, hematuria and urgency. Musculoskeletal: Negative for arthralgias, back pain, joint swelling, myalgias and neck pain. Skin: Negative for color change and rash. Neurological: Positive for headaches. Negative for dizziness, tremors, seizures, syncope, light-headedness and numbness. Trigeminal neuralgia of the right side of face Hematological: Positive for adenopathy. Does not bruise/bleed easily. Psychiatric/Behavioral: Negative for dysphoric mood and sleep disturbance. The patient is not nervous/anxious. Vitals Visit Vitals BP 125/79 (BP Location: Left arm, Patient Position: Sitting) Pulse 73 Ht 1.753 m (5' 9 ) Wt 107 kg (236 lb) LMP 09/23/2024 (Exact Date) SpO2 99% BMI 34.85 kg/m??? OB Status Having periods Smoking Status Former BSA 2.28 m??? Most Recent test results with patient Admission on 09/26/2024, Discharged on 09/26/2024 Component Date Value Rapid Strep A Screen 09/26/2024 Negative QC Pass/Fail 09/26/2024 Passed LOT NUMBER 09/26/2024 [id number] QC Expiration Date 09/26/2024 06/23/25 SARS COV2 ANTIGEN 09/26/2024 Negative. For use under an Emergency Use Authorization (EUA) only. For use with anterior nasal/nasopharygeal. For in vitro diagnostic use only. QC Pass/Fail 09/26/2024 Passed QC LOT # 09/26/2024 [id number] QC Expiration Date 09/26/2024 04/29/2026 Rapid Influenza A PCR 09/26/2024 Negative Rapid Influenza B PCR 09/26/2024 Negative Monospot 09/26/2024 Negative Sodium 09/26/2024 139 Potassium 09/26/2024 3.7 Chloride 09/26/2024 110 (H) CO2 09/26/2024 24 Anion Gap 09/26/2024 9 BUN 09/26/2024 10 Creatinine 09/26/2024 0.72 BUN/Cre (more content not included)... [facility] 10-13-2024 History of Present illness Narrative Reason for Appointment: Patient ID: Kierra Natarajan is a 33 y.o. female who presents for discuss lab results Patient presents today for Discuss MRI/CT reports MEDICATIONS Current Outpatient Medications Medication Instructions amoxicillin-clavulanate (Augmentin) 875-125 MG tablet 875 mg, Oral, 2 times daily carBAMazepine ER (CARBATROL) 300 mg, Oral, 2 times daily, Do not crush or chew. 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 Anxiety 04/28/2024 Occipital neuralgia of right side 07/01/2024 Diplopia 08/17/2024 Dizziness 08/17/2024 Saddle anesthesia 08/17/2024 Chronic bilateral low back pain without sciatica 08/17/2024 Resolved Ambulatory Problems Diagnosis Date Noted No Resolved Ambulatory Problems Past Medical History: Diagnosis Date ADHD (attention deficit hyperactivity disorder) ([facility]) Depression ([facility]) Ear problems Head injury October 16 Infertility, female Migraine ([facility]) 05/2024 PTSD (post-traumatic stress disorder) ([facility]) HISTORY PAST MEDICAL HISTORY SOCIAL HISTORY Past Medical History: Diagnosis Date ADHD (attention deficit hyperactivity disorder) ([facility]) Anxiety Depression ([facility] Ear problems Head injury October 16 Infertility, female Migraine ([facility]) 05/2024 PTSD (post-traumatic stress disorder) ([facility]) Social History Tobacco Use Smoking status: Former Current packs/day: 0.00 Average packs/day: 1.5 packs/day for 15.9 years (23.9 ttl pk-yrs) Types: Cigarettes Start date: 07/25/2007 Quit date: 06/24/2023 Years since quittin.3 Smokeless tobacco: Never Substance Use Topics Alcohol use: Yes Drug use: Yes Types: Marijuana Comment: For fun. FAMILY HISTORY Family History Problem Relation Name Age of Onset Irritable bowel syndrome Mother Jose Miguel Depression Mother Jose Miguel Cancer Mother Jose Miguel Hypertension Mother Jose Miguel Rheum arthritis Mother Jose Miguel Alcohol abuse Father Cancer Father Hypertension Father Alcohol abuse Sibling Diabetes Brother Jonnathan SURGICAL HISTORY Past Surgical History: Procedure Laterality Date ADENOIDECTOMY [...] Exam Constitutional: Appearance: Normal appearance. She is normal weight. HENT: Head: Normocephalic. Cardiovascular: Rate and Rhythm: Normal rate. Pulses: Normal pulses. Pulmonary: Effort: Pulmonary effort is normal. Breath sounds: Normal breath sounds. Abdominal: Palpations: Abdomen is soft. Musculoskeletal: General: Normal range of motion. Neurological: General: No focal deficit present. Mental Status: She is alert and oriented to person, place, and time. Psychiatric: Mood and Affect: Mood normal. Behavior: Behavior normal. Thought Content: Thought content normal. Judgment: Judgment normal. Vitals and nursing note reviewed. Vitals: Estimated body mass index is 35.44 kg/m as calculated from the following: Height as of 10/01/24: 5' 9 . Weight as of this encounter: 240 lb. BP: 128/76 Patient's last menstrual period was 09/28/2024 (exact date). ASSESSMENT & PLAN ICD-10-CM 1. Encounter to discuss test results Z71.2 Pt present today to have Barb Stallings help her understand the results from her MRI/CT report that was done on 09/27/2024 at [facility]. Pt would like to see if Barb can put some peace of mind with everything that is going on with her health today. Patient is tearful and crying and wanting answers for her neurologic symptoms. We discussed her future follow ups and I answered her questions and concerns to the best of my ability. Pt has been experiencing neuropathy and double vision for approx 2 months. She has had mri and ct scans. She is following with neuro Documented by Cathleen Allen MA on behalf of: AI Echols documented in this encounter [facility] 10-06-2024 Note Family Medicine - Ou tpatient visit 10/06/2024 HPI: Today for a female presented today for having fatigue and thinking she is having brain fog. Friday has US done and CT neck today. She is instructed to get hematology and oncology referral due to swollen lymph nodes in her neck that she has noticed. After further review there is referral requested due to parotid lymph absorption of contrast. The patient is still having some symptoms as her lymph nodes do seem swollen on the left side around antibiotic and submandibular lymph node. She denies any nausea vomiting diarrhea or fever no other concerns at this time. She is here to follow-up on results and get a referral for hematology. Chief Complaint Patient presents with would like hemotology referral Patient was seen by ent and they advised that she get a hematology oncology referral due to lymph nodes swelling on head and neck. ENT questioned finding on MRI of head --ASCVD RISK (40-79): The ASCVD Risk score [...] Arthritis Mother's Sister Leann Arthritis Mother's Brother [place] Arthritis Mother's Sister [place] Social History: Social History Tobacco Use Smoking status: Former Current packs/day: 0.50 Average packs/day: 0.5 packs/day for 15.9 years (7.9 ttl pk-yrs) Types: Cigarettes Start date: 11/24/2008 Smokeless tobacco: Never Vaping Use Vaping status: Never Used Substance Use Topics Alcohol use: Not Currently Comment: Maybe 2 or 3 times a year Drug use: Not Currently Frequency: 2.0 times per week Types: Marijuana Hospital/Surgical History: She has a past surgical history that includes Tonsillectomy and Hysteroscopy. Current and New Medications started: Current Outpatient Medications on File Prior to Visit Medication Sig AMOXICILLIN 100 MG-POTASSIUM CLAVULANATE 14.25 MG CHEWABLE SPLIT TABLET (Augmentin) baclofen (Lioresal) 5 mg tablet Take 5 mg by mouth three times daily. PRN carBAMazepine (Carbatrol) 300 mg 12 hr capsule Take 300 mg by mouth two times daily. No current facility-administered medications on file prior [...] and are negative. Vitals: Visit Vitals BP 126/82 (BP Location: Left arm, Patient Position: Sitting) Pulse 86 Ht 1.753 m (5' 9 ) Wt 108 kg (239 lb) LMP 09/23/2024 (Exact Date) SpO2 99% BMI 35.29 kg/m??? OB Status Having periods Smoking Status Former BSA 2.29 m??? 10/14/2024 1:00 PM 10/06/2024 8:48 AM 09/23/2024 11:00 AM PHQ9 Score Trend PHQ9 Total Score 0 0 16 Most Recent test results with patient: Admission on 09/26/2024, Discharged on 09/26/2024 Component Date Value Rapid Strep A Screen 09/26/2024 Negative QC Pass/Fail 09/26/2024 Passed LOT NUMBER 09/26/2024 [id number] QC Expiration Date 09/26/2024 06/23/25 SARS COV2 ANTIGEN 09/26/2024 Negative. For use under an Emergency Use Authorization (EUA) only. For use with anterior nasal/nasopharygeal. For in vitro diagnostic use only. QC Pass/Fail 09/26/2024 Passed QC LOT # 09/26/2024 [id number] QC Expiration Date 09/26/2024 04/29/2026 Rapid Influenza A PCR 09/26/2024 Negative Rapid Influenza B PCR 09/26/2024 Negative Monospot 09/26/2024 Negative Sodium 09/26/2024 139 Potassium 09/26/2024 3.7 Chloride 09/26/2024 110 (H) CO2 09/26/2024 24 Anion Gap 09/26/2024 9 BUN 09/26/2024 10 Creatinine 09/26/2024 0.72 BUN/Creatinine Ratio 09/26/2024 13.9 Glucose 09/26/2024 90 Calcium 09/26/2024 8.3 (L) AST (more content not included)... [facility] 10-01-2024 History of Present illness Narrative Subjective [...] Date ADHD (attention deficit hyperactivity disorder) ([facility]) Depression ([facility]) Ear problems Head injury October 16 Infertility, female Migraine ([facility]) 05/2024 PTSD (post-traumatic stress disorder) ([facility]) Past Surgical History: Procedure Laterality [...] with Dr Juan documented in this encounter [facility] 09-28-2024 Note ED follow up call Discharged From: [facility] ED Discharge Date: 09/26/2024 Chief Complaint: [...] she is requesting a referral to Hemo-oncology [facility] Shimon See for follow up/evaluation. PCP will be notified of request for referral. Stat labs were also completed at [facility] on 10/01/2024. PCP Appointment: 09/23/2024 - last in office appointment with PCP 09/28/2024 - follow up with neurology 10/01/2024 - follow up with ENT (Quin Chacon) New Medications: No new medications Call Us First: Discussed with patient the opportunity to contact this office for all after-hours care questions, 16/06. Discussed with patient this office often has availability for same-day sick appointments. [facility] 09-28-2024 Note Reviewing ER visit: ENT should look at the MRI for the parotid gland and lymph node findings. Calcium little low on labs. Make sure she is takign D3 2000 U. Blood work recently showed low vit D [facility] 09-27-2024 Telephone encounter Note I have never seen this with tegretol. If she wants to try a different medication we can do that. I would try cymbalta or gabapentin if she wants to try something different.Let me know and Ill send something in if she wants something different [facility] 09-27-2024 Miscellaneous Notes I have never seen [...] carbamazepine. Pt reports that she spoke with consulting manager neurologist and they told her to also f/u with our office. Patient went to ER in [place] on Friday morning and notes that they [...] f/u with us. documented in this encounter [facility] 09-27-2024 Telephone encounter Note On of last week pt was seen by PCP for lumps behind ears, on jaw line, sore throat and swollen glands. PCP said to f/u with our office as this could be a reaction to her med, carbamazepine. Pt reports that she spoke with consulting manager neurologist and they told her to also f/u with our office. Patient went to ER in [place] on Friday and notes that they did labs. Notes [...] not increase dosage until f/u with us. [facility] 09-23-2024 Note Family Medicine - Ou tpatient [...] RISK (40-79): The ASCVD Risk score (Kassi DK, et al., 2019) failed to calculate for [...] Arthritis Mother's Brother [place] Arthritis Mother's Sister [place] Social History: Social History Tobacco Use Smoking [...] every 12 (twelve) hours if needed. [DISCONTINUED] cscemiwe-[id number]-[id number] (Maxitrol) 3.5mg/mL-10,000 unit/mL-0.1 % ophthalmic suspension INSTILL [...] (RO) Ab 04/10/2023 (more content not included)... [facility] 09-15-2024 Telephone encounter Note This has been taken care of. I do not think these are seizure as she has not altered awareness. We will see what the brain MRI shows. She was started on tegretol. If brain MRI normal and symptoms are persistent we can consider referral to [facility] and/or [facility]. [facility] 09-15-2024 Miscellaneous Notes This has been [...] like the MRI order faxed to [facility] documented in this encounter [facility] 09-15-2024 Telephone encounter Note Patient called [...] like the MRI order faxed to [facility] 09-14-2024 Telephone encounter Note Done [facility] 09-14-2024 Miscellaneous Notes Done Pharmacy calls stating that the pt is not wanting to cut the baclofen in half and is asking us to send an rx for 5mg tabs to the pharmacy. documented in this encounter [facility] 09-14-2024 Telephone encounter Note Pharmacy calls stating that the pt is not wanting to cut the baclofen in half and is asking us to send an rx for 5mg tabs to the pharmacy. [facility] 09-13-2024 History of Present illness Narrative Images from the original note were not included. Iris Natarajan is a 33 y.o. year old female No chief complaint on file. Past Medical History: Diagnosis Date ADHD (attention deficit hyperactivity disorder) ([facility]) Anxiety Depression ([facility]) Head injury October 16 Infertility, female PTSD (post-traumatic stress disorder) ([facility]) Past Surgical History: Procedure Laterality [...] 1053 hydrOXYzine HCl (Atarax) 10 MG tablet [id number] Yes Take 10 mg by mouth 3 (three) times a day as needed. Historical Provider, Active ibuprofen 800 MG tablet [id number] Yes Take 800 mg by mouth every 6 (six) hours if needed for moderate pain Jeremy Real, DO Active levoFLOXacin (Levaquin) 250 MG tablet [id number] Yes Take 2 tablets by mouth Daily Jeremy Real, DO Active metFORMIN XR (Glucophage-XR) 500 MG 24 hr tablet [id number] Yes Take 1 tablet (500 mg) by [...] in upper and lower extremities. Coordination Right: Jnfzuy-il-djoc normal. Rapid alternating movement normal.Left: Yfyizp-qx-vgtg normal. Rapid alternating movement normal. Gait Casual gait is normal including stance, stride, and arm swing. Motor Examination RUE Strength deltoid, biceps, triceps, wrist extensors, wrist extensors, wrist flexor, credit adjuster strength 5/5. LUE Strength deltoid, biceps, triceps, wrist extensors, wrist extensors, wrist flexor, credit adjuster strength 5/5. RLE Strength illopsoas, quadriceps, tibialis [...] well. In September she was helping her uthuez-wp-vxf into a chair and his head hit [...] make further recommendations documented in this encounter [facility] 09-08-2024 History of Present illness Narrative Reason [...] Date ADHD (attention deficit hyperactivity disorder) ([facility]) Depression ([facility]) Head injury October 16 Infertility, female PTSD (post-traumatic stress disorder) ([facility]) HISTORY PAST MEDICAL HISTORY SOCIAL HISTORY Past Medical History: Diagnosis Date ADHD (attention deficit hyperactivity disorder) ([facility]) Anxiety Depression ([facility]) Head injury October 16 Infertility, female PTSD (post-traumatic stress disorder) ([facility]) Social History Tobacco Use Smoking [...] nursing note reviewed. Exam conducted with a social work professor present. Vitals: Estimated body mass index is [...] Jeremy Real DO documented in this encounter [facility] 08-26-2024 Miscellaneous Notes Patient called she [...] okay to accept? documented in this encounter [facility] 08-26-2024 Telephone encounter Note Patient called she is looking for a new provider. She has been having ongoing double vision, she has seen neuro, [facility], ect. Nobody has an idea what is is going and is freaking out. I want to get her with either you or furlong he's booking out till about October [facility] 08-26-2024 Telephone encounter Note I would feel she is more appropriate for a physician at this time. [email or web address] Work Phone: 08-26-2024 Telephone encounter Note Would you be okay to accept? [email or web address] Evaluation + Plan note No data available for this section [facility] Evaluation note No assessment inform ation available [facility] Work Phone: Evaluation note Diagnosis Irregular [...] region- Primary [facility] Encounter to discuss test results Other specified counseling [facility] N[facility]* Sudheer Chacon MD - 09/17/2024 10:30 AM EDT Subjective Patient ID: Kierra Natarajan is a 33 y.o. female who presents for Sialoadenitis Pt reports one mo ago she started developing intermittent right facial numbness and tingling. Also getting intermittent double vision. Improved since starting tegratol and baclofen. Pt at [facility]. MRI ordered and awaiting scheduling. Pt had [...] Date ADHD (attention deficit hyperactivity disorder) ([facility]) Depression ([facility]) Ear problems Head injury October 16 Infertility, female Migraine ([facility]) 05/2024 PTSD (post-traumatic stress disorder) ([facility]) Past Surgical History: Procedure Laterality [...] suggests any ENT path [facility] No data available for this section [facility] InstructionsNot on filedocumented in this encounter [facility] No data available for this section [facility] Summary Purpose Family History No Family History [...] and content) DATE CREATED AUTHOR 03/09/2021 [facility] DATE CREATED AUTHOR AUTHOR'S ORGANIZ ATION 03/09/2023 [facility] DATE CREATED AUTHOR AUTHOR'S ORGANIZ ATION 06/08/2024 [facility] DATE CREATED AUTHOR AUTHOR'S ORGANIZ ATION 08/16/2024 [facility] DATE CREATED AUTHOR AUTHOR'S ORGANIZ ATION 10/03/2024 [facility] DATE CREATED AUTHOR AUTHOR'S ORGANIZ ATION 10/10/2024 [facility] DATE CREATED AUTHOR AUTHOR'S ORGANIZ ATION 10/16/2024 [facility] DATE CREATED AUTHOR AUTHOR'S ORGANIZ ATION 10/17/2024 [facility] Patient Care team informatio n (unrecognized [...] August 10, 2024 End: August 10, 2024 Ro C Windnagel , SLIVER LAPPER-C Attending Provider Active Start: August 10, 2024 End: August 10, 2024 Hazardous Substances Scientist Relationship Specialty Start Date End Date Unallocated, Cong Chi MD [facility] [place] [address] PCP - General Family Medicine 08/17/24 Hazardous Substances Scientist Relationship Specialty Start Date End Date Unallocated, Cong Chi MD [facility] [place] [place] [address] PCP - General Family Medicine 08/17/24 Hazardous Substances Scientist Relationship Specialty Start Date End Date No Pcp, [place] [address] PCP - General Family Medicine 05/31/24 Hazardous Substances Scientist Relationship Specialty Start Date End Date Unallocated, Cong Chi MD [facility] [place] [address] PCP - General Family Medicine 08/17/24 Hazardous Substances Scientist Relationship Specialty Start Date End Date Unallocated, Cong Chi [place] [facility] [place] [address] PCP - General Family Medicine 08/17/24 Hazardous Substances Scientist Relationship Specialty Start Date End Date Unallocated, Cong Chi [place] [facility] [place] [address] PCP - General Family Medicine 08/17/24 Hazardous Substances Scientist Relationship Specialty Start Date End Date Unallocated, [facility] [place] [address] PCP - General Family Medicine 08/17/24 Hazardous Substances Scientist Relationship Specialty Start Date End Date Unallocated, Cong [facility] [place] [address] PCP - General Family Medicine 08/17/24 Hazardous Substances Scientist Relationship Specialty Start Date End Date Unallocated, Cong Chi MD [facility] [place] [address] PCP - General Family Medicine 08/17/24 Hazardous Substances Scientist Relationship Specialty Start Date End Date Unallocated, Noms MD [facility] [address] [place] [address] PCP - General Family Medicine 08/17/24 Hazardous Substances Scientist Relationship Specialty Start Date End Date Unallocated, Cong Chi MD [address] [facility] [place] [address] PCP - General Family Medicine 08/17/24 Goals (unrecognized section and content) Goals may be documented in a n alternate section Reason for Visit (unrecogniz ed section and content) Reason Comments Follow up testing Reason Comments Sialoadenitis Reason Comments Facial Pain MRI 09/27/24 [facility] Reason Comments discuss lab results FOR RECORDS PERTAINING TO PATIENTS WHO ARE [...] BE BASED ON THE PRIMARY CLINICAL RECORDS. [facility] [employer] [facility]. provides no warranty or guarantee of the accuracy or completeness of information in this document.
[2024-10-25 09:12] LABS: Basophils Percent Auto 0.7 % (0.2-2.0); Eosinophils Absolute Auto 0.3 10^3/uL (0.0-0.7); Eosinophils Percent Auto 4.4 % (0.9-7.0); Hematocrit 37.1 % (36.0-48.0); Hemoglobin 12.5 g/dL (12.0-16.0); Immature Granulocytes Abs Auto 0.03 10^3/uL (0.00-0.03); Immature Granulocytes Pct Auto 0.5 % (0.0-0.5); Lymphocytes Absolute Auto 1.5 10^3/uL (1.2-3.8); Lymphocytes Percent Auto 26.8 % (20.5-60.0); Mean Corpuscular HGB Conc 33.7 g/dL (29.9-35.2); Mean Corpuscular Hemoglobin 29.2 pg (26.7-34.0); Mean Corpuscular Volume 86.7 fL (81.0-99.0); Mean Platelet Volume 10.5 fL (9.5-13.5); Monocytes Absolute Auto 0.4 10^3/uL (0.3-0.8); Neutrophils Absolute Auto 3.5 10^3/uL (1.4-6.5); Neutrophils Percent Auto 60.6 % (43.0-75.0); Platelet Count 271 10^3/uL (150-450); Red Blood Count 4.28 10^6/uL (4.20-5.40); White Blood Count 5.7 10^3/uL (4.0-11.0)
[2024-10-25 09:39] LABS: Alanine Aminotransferase 26 U/L (14-59); Albumin Level 3.2 g/dL (3.4-5.0); Alkaline Phosphatase 69 U/L (46-116); Anion Gap 12.4; Aspartate Amino Transferase 21 U/L (15-37); BUN Creatinine Ratio 10.1; Bilirubin Total 0.3 mg/dL (0.2-1.0); Carbon Dioxide 26.6 mmol/L (21.0-32.0); Chloride 108 mmol/L (98-107); Estimated GFR (African America >60 (>=60 mL/min/1.73m^2); Estimated GFR (Non-African Ame >60 (>=60 mL/min/1.73m^2); Globulin 3.2 g/dL; Glucose 79 mg/dL (74-106); Sodium 143 mmol/L (136-145); Total Protein 6.4 g/dL (6.4-8.2)
== END 2024-10-25 08:34 | disposition home or self-care (01) ==
LOC: LAB 08:37
DX: G50.0 Trigeminal neuralgia (principal)
CPT/HCPCS: 36415; 80053; 85025

== ENCOUNTER 2025-09-29 14:48 | Outpatient (REF) | payer BC, SELFPAY ==
--- OUTSIDE RECORDS SUMMARY | 2025-09-29 11:00 | XMS_ITS | Encounter Summary ---
Author Organization [facility] Address [address] [place] [address] Care Team Providers Care Optical Effects Camera Operator Name Role Phone Beronica Forte CUTTER AND EDGE TRIMMER Unavailable [phone] Reason for Visit * ReasonCommentsWell Women Visit Encounter Details DateTypeDepartmentCare Team (Latest Contact Info)Ahzvuleorjv82/06/2025 11:00 AM ESTProcedure Visit NOMAlireza VALLEJO [address] [place] [phone] Barb Luke PA [address] [place] [address] Well woman exam with routine gynecological exam; History of ovarian cyst; Pain in female genitalia on intercourse; Chronic right-sided low back pain, unspecified whether sciatica present Social History Tobacco UseTypesPacks/DayYears UsedDateSmoking Tobacco: FormerCigarettes1.515.9 07/25/2007 - 06/24/2023Smokeless Tobacco: NeverAlcohol UseStandard Drinks/Week CommentsNot Currently2 (1 standard drink = 0.6 oz pure alcohol)AUDIT-CAnswerDate RecordedQ1: How often do you have a drink containing alcohol?Monthly or less 04/28/2024Q2: How many drinks containing alcohol do you have on a typical day when you are drinking?1 or Q3: How often do you have six or more drinks on one occasion?Never04/28/2024CommentsNoSex and Gender InformationValueDate RecordedSex Assigned at UdfghAhrvvz30/28/2023 6:05 PM EDT Legal IxdJjbsyg39/04/2023 12:16 PM EDTGender GrugrjrePavdfr88/28/2023 6:05 PM EDTSexual QxclbocmkilXfxmcuit32/28/2023 6:05 PM EDTdocumented as of this encounter Last Filed Vital Signs Vital SignReadingTime TakenCommentsBlood Sdqcaiqf478/6409/29/2025 11:00 AM EST Pulse--Temperature--Respiratory Rate--Oxygen Saturation--Inhaled Oxygen Concentration--Oyczef345 kg (260 lb 4 oz)09/29/2025 11:00 AM ESTHeight--Body Mass Index38.43112/01/2023 8:25 AM ESTdocumented in this encounter Progress Notes * Poonam Cowan LPN - 09/29/2025 11:00 AM EST Reason for Appointment: Patient ID: Eloisa Natarajan is a 34 y.o. female who presents for Well Women Visit Patient presents today for Annual Exam. MEDICATIONS Current Outpatient Medications Medication Instructions azelastine (Astelin) 0.1 % nasal spray 1 spray, 2 times daily cetirizine (ZyrTEC) 10 MG tablet escitalopram (Lexapro) 10 MG tablet fluticasone (Flonase) 50 MCG/ACT nasal spray USE 1 SPRAY(S) IN EACH NOSTRIL TWICE DAILY SHAKE GENTLY BEFORE FIRST USE PRIME PUMP AFTER USE CLEAN TIP AND REPLACE CAP hydrOXYzine HCl (ATARAX) 50 mg, 3 times daily PRN indomethacin (Indocin) 25 MG capsule metFORMIN XR (Glucophage-XR) 500 MG 24 hr tablet TAKE 1 TABLET BY MOUTH IN THE EVENING WITH A MEAL DO NOT CRUSH CHEW OR SPLIT omeprazole (PRILOSEC) 40 mg triamcinolone (Kenalog) 0.1 % cream ALLERGIES Allergies Allergen Reactions Dextromethorphan-Guaifenesin Loopy PROBLEMS Active Ambulatory Problems Diagnosis Date Noted Neurologic gait dysfunction 04/28/2024 Anxiety 04/28/2024 Occipital neuralgia of right side 07/01/2024 Diplopia 08/17/2024 Dizziness 08/17/2024 Saddle anesthesia 08/17/2024 Chronic bilateral low back pain without sciatica 08/17/2024 Resolved Ambulatory Problems Diagnosis Date Noted No Resolved Ambulatory Problems Past Medical History: Diagnosis Date ADHD (attention deficit hyperactivity disorder) Depression Ear problems Head injury October 16 Infertility, female Migraine 05/2024 PTSD (post-traumatic stress disorder) HISTORY PAST MEDICAL HISTORY SOCIAL HISTORY Past Medical History: Diagnosis Date ADHD (attention deficit hyperactivity disorder) Anxiety Depression Ear problems Head injury October 16 Infertility, female Migraine 05/2024 PTSD (post-traumatic stress disorder) Social History Tobacco Use Smoking status: Former Current packs/day: 0.00 Average packs/day: 1.5 packs/day for 15.9 years (23.9 ttl pk-yrs) Types: Cigarettes Start date: 07/25/2007 Quit date: 06/24/2023 Years since quittin.2 Smokeless tobacco: Never Substance Use Topics Alcohol use: Not Currently Alcohol/week: 2.0 standard drinks of alcohol Types: 2 Standard drinks or equivalent per week Drug use: Yes Types: Marijuana Comment: For [...] 99 DILATION AND CURETTAGE OF UTERUS HYSTEROSCOPY MR ANGIOGRAM HEAD WO IV CONTRAST 12/14/2024 MR ANGIOGRAM HEAD WO IV CONTRAST 12/14/2024 PELVIC LAPAROSCOPY TONSILLECTOMY REVIEW OF SYSTEMS Review of Systems: Review of Systems All other systems reviewed and are negative. OBJECTIVE Objective: Physical Exam Constitutional: Appearance: Normal appearance. Genitourinary: Right Adnexa: not tender and no mass present. Left Adnexa: not tender and no mass present. No cervical discharge. Breasts: Breasts are soft. Right: Normal. Left: Normal. HENT: Head: Normocephalic. Nose: Nose normal. Mouth/Throat: Mouth: Mucous membranes are moist. Cardiovascular: Rate and Rhythm: Normal rate. Pulmonary: Effort: Pulmonary effort is normal. Abdominal: General: Bowel sounds are normal. Palpations: Abdomen is soft. Musculoskeletal: General: Normal range of motion. Cervical back: Normal range of motion. Neurological: General: No focal deficit present. Mental Status: She is alert. Skin: General: Skin is warm and dry. Psychiatric: Mood and Affect: Mood normal. Vitals and nursing note reviewed. Exam conducted with a proofsheet corrector present. Vitals: Estimated body mass index is 38.43 kg/m?? as calculated from the following: Height as of 10/01/24: 5' 9 . Weight as of this encounter: 260 lb 4 oz. BP: 118/64 Patient's last menstrual period was 09/10/2025 (exact date). Assessment/Plan ICD-10-CM 1. Well woman exam with routine gynecological exam Z01.419 Pap Smear HPV DNA probe, amplified 2. History of ovarian cyst Z87.42 3. Pain in female genitalia on intercourse N94.10 4. Chronic right-sided low back pain, unspecified whether sciatica present M54.50 G89.29 Annual Exam: Patient presents today for an annual exam. Patient states she is doing well and has no complaints. Pap was obtained without difficulty. Patient is having back pain and she did have Ovarian cyst and she did have endometrial procedure many years ago. Patient states that she has been going through a lot over the past year and she has been trying a medication. Discussed a Dx. lap with patient to see if there is something that is noted for the pain that she is having. Patient states that she has had Mammogram due to some areas on her breast. Orders Placed This Encounter Procedures HPV DNA probe, amplified Follow Up: Patient is to return in one year for annual unless needed otherwise. Documented by Poonam Cowan LPN on behalf of: AI Echols documented in this encounter Plan of Treatment DateTypeDepartmentCare Team (Latest Contact Info)Jtqxiycxqqq92/11/2025 10:30 AM ESTConsult [facility] [place] [facility] [address] [place] [address] Jeremy Real, [address] [place], [place] [address] 02/21/2026 9:30 AM EDTOffice Visit [facility] [address] [place] [address] Regina Frost MD [address] [place] [address] NameTypePriorityAssociated DiagnosesOrder SchedulePap SmearPathology and CytologyRoutine Well woman exam with routine gynecological exam Ordered: 09/29/2025HPV DNA probe, amplifiedMicrobiologyRoutine Well woman exam with routine gynecological exam Ordered: 09/29/2025documented as of this encounter Visit Diagnoses Diagnosis Well woman exam with routine gynecological exam Routine gynecological examination History of ovarian cyst Personal history of other genital system and obstetric disorders Pain in female genitalia on intercourse Dyspareunia Chronic right-sided low back pain, unspecified whether sciatica present documented in this encounter Care Teams Team MemberRelationshipSpecialtyStart DateEnd Date Beronica Forte NP MARLENI Barton11/24/24documented as of this encounter
--- OUTSIDE RECORDS SUMMARY | 2025-09-29 14:50 | XMS_ITS | Clinical Summary ---
Author Organization [facility] Address [address] [place] [address] Care Team Providers Care Electrical Subcontractor Name Role Phone Beronica Forte STAFF ANESTHETIST Unavailable [phone] Allergies Active AllergyReactionsCriticalityNoted DateCommentsDextromethorphan-Guaifenesin 04/10/2023 Loopy Medications MedicationSigDispense QuantityRefillsLast FilledStart DateEnd DateStatus hydrOXYzine HCl (Atarax) 10 MG tablet Take 50 mg by mouth 3 (three) times a day as zdvsvu6407/21/2009ctive metFORMIN XR (Glucophage-XR) 500 MG 24 hr tablet Indications:Polycystic ovarian syndromeTAKE 1 TABLET BY MOUTH IN THE EVENING WITH A MEAL DO NOT CRUSH CHEW OR SPLIT 30 tablet 5Active azelastine (Astelin) 0.1 % nasal spray 1 spray in the morning and 1 spray in the evening.ctive cetirizine (ZyrTEC) 10 MG tablet 5Active escitalopram (Lexapro) 10 MG tablet 5Active fluticasone (Flonase) 50 MCG/ACT nasal spray USE 1 SPRAY(S) IN EACH NOSTRIL TWICE DAILY SHAKE GENTLY BEFORE FIRST USE PRIME PUMP AFTER USE CLEANTIP AND REPLACE CAP5Active indomethacin (Indocin) 25 MG capsule 5Active omeprazole (PriLOSEC) [address] capsule Take 40 mg by mouth5Active triamcinolone (Kenalog) 0.1 % cream 5Active ibuprofen 800 MG tablet Take 600 mg by mouth every 6 (six) hours if needed for moderate pain09/04/2024 09/29/2025Discontinued carBAMazepine ER (Carbatrol) 300 MG 12 hr capsule Indications:Trigeminal neuralgia of right side of faceTake 1 capsule (300 mg) by mouth in the morning and 1 capsule (300 mg) before bedtime. Do not crushor chew.. 60 capsule Discontinued baclofen (Lioresal) 10 MG tablet TAKE 1/2 TO 1 (ONE-HALF TO ONE) TABLET BY MOUTH TWICE DAILY NEEDED FOR FACIAL PAIN MAY CAUSE LUAWKZFFBW14/06/2025Discontinued rizatriptan (Maxalt) 10 MG tablet TAKE 1 TABLET BY MOUTH ONCE DAILY A 1 TIME DOSE, IF NEEDED FOR MIGRAINE. MAY REPEAT IN 2 HOURS IF UNRESOLVED. DO NOT EXCEED 30MG IN 24 HOURS.09/29/2025 Discontinued Active Problems ProblemNoted DateDiagnosed TxzyXhdvghpg97/24/9277Wmzrdqzff82/24/2024Saddle gzfesrwhea47/24/2024hronic bilateral low back pain without aaschmtd53/24/2024 Occipital neuralgia of right side07/01/2024Neurologic gait mrggkvlgurr10/05/2024 Tbvzfbe0404/28/2024 Encounters DateTypeDepartmentCare MgrhCdsjveypjpf04/06/2025 11:00 AM ESTProcedure Visit YUN VALLEJO [address] [place] [address] [place] [address] Barb Luke PA Well woman exam with routine gynecological exam; History of ovarian cyst; Pain in female genitalia on intercourse; Chronic right-sided low back pain, unspecified whether sciatica present 09/29/2025amboo flowsheet NOMAlireza VALLEJO [address] [place] [address] [place] [address] Barb Luke PA 09/27/20258180Ffvjoz36/09/2025Refill NOMAlireza VALLEJO [address] [place] [address] [place] [address] Jeremy Real, Polycystic ovarian syndromefrom Last 3 Months Family History Medical HistoryRelationNameCommentsDiabetesBrotherFrankieAlcohol abuseFather CancerFatherHypertensionFatherCancerMotherFrankDepressionMotherFrankHypertension MotherFrankIrritable bowel syndromeMotherFrankRheum arthritisMotherFrankAlcohol abuseSiblingRelationNameStatusCommentsBrotherFrankieFatherMotherFrankSibling Social History Tobacco UseTypesPacks/DayYears UsedDateSmoking Tobacco: FormerCigarettes1.515.9 07/25/2007 - 06/24/2023Smokeless Tobacco: Never Tobacco Cessation:Counseling Given: Not Answered Alcohol UseStandard Drinks/WeekCommentsNot Currently2 (1 standard drink = 0.6 oz pure alcohol)AUDIT-CAnswerDate RecordedQ1: How often do you have a drink containing alcohol?Monthly or less04/28/2024Q2: How many drinks containing alcohol do you have on a typical day when you are drinking?1 or Q3: How often do you have six or more drinks on one occasion?Never04/28/2024 CommentsNoSex and Gender InformationValueDate RecordedSex Assigned at Ufvuip8507/21/2023 6:05 PM EDTLegal JoqJqsfns23/04/2023 12:16 PM EDTGender SsutfipkRhdcqf44/28/2023 6:05 PM EDTSexual ReumoovzvgyImujbviz09/28/2023 6:05 PM EDT Last Filed Vital Signs Vital SignReadingTime TakenCommentsBlood Gukperjl931/6411 11:00 AM EST Octcl6734 1:39 PM EDTTemperature--Respiratory Rate--Oxygen Kqazhacgnv64% 04/29/2024 10:03 AM EDTInhaled Oxygen Concentration--Lfkmps871 kg (260 lb 4 oz) 09/29/2025 11:00 AM GIPKyevex510.3 cm (5' 9 )10/01/2024 8:25 AM ESTBody Mass Index38.43112/01/2023 8:25 AM EST Plan of Treatment DateTypeDepartmentCare Team (Latest Contact Info)Lvnahiztqpw63/09/2025 10:30 AM ESTConsult [facility] [address] [place] [address] Jeremy Real DO [address] [place] [place], [place] [address] 02/21/2026 9:30 AM EDTOffice Visit [facility] [address] [place] [address] Regina Frost MD [address] [place] [address] Health MaintenanceDue DateLast DoneCommentsCOVID-19 Vaccine ( season) 2025Influenza Vaccine (#1)2025Pap Smear, 07/22/2022, 2Cervical Cancer Gyaotyhiz72/28/2028HPV/Qrqwbd8608/21/2028 3Pneumococcal Vaccine: Pediatrics (0 to 5 Years) and At-Risk Patients (6 to 64 Years)Aged OutNo longer eligible based on patient's age to complete this topic Procedures Procedure NamePriorityDate/TimeAssociated DiagnosisCommentsPAP SMEARRoutine 08/19/2024 12:00 AM EDTTHINPREP PAP AND HPV MRNA E6/E7 W/RFL HPV 16,18/45Routine 08/21/2023 10:44 AM EDT Well woman exam with routine gynecological exam from Last 3 Months or Most Recently Relevant to Health Maintenance Results * Pap Smear (08/19/2024 12:00 AM EDT)Specimen (Source)Anatomical Location / LateralityCollection Method / VolumeCollection TimeReceived TimeSwabCervical swab / Unknown Narrative Authorizing ProviderResult TypeResult StatusFazio Nurse [facility] ObLAB CYTOLOGY ORDERABLESFinal ResultPerforming OrganizationAddressCity/State/ZIP CodePhone Number EXTERNAL LAB * THINPREP PAP AND HPV MRNA E6/E7 W/RFL HPV 16,18/45 (08/21/2023 10:44 AM EDT) Narrative Authorizing ProviderResult TypeResult StatusCorey Addie MOULTON BLOOD ORDERABLES Final ResultPerforming OrganizationAddressCity/State/ZIP CodePhone Number EXTERNAL LAB from Last 3 Months or Most Recently Relevant to Health Maintenance Insurance Care Teams Team MemberRelationshipSpecialtyStart DateEnd Date Beronica Forte NP MARLENI Barton11/24/24
--- OUTSIDE RECORDS SUMMARY | 2025-09-29 14:50 | XMS_ITS | Encounter Summary ---
Author Organization [facility] Address [address] [place] [address] Care Team Providers Care Precision Assembler Bench Name Role Phone Beronica Forte PATIENT SERVICE REPRESENTATIVE Unavailable [phone] Encounter Details DateTypeDepartmentCare Team (Latest Contact Info)Zblxybpaqvi33/06/2025Bamboo flowsheet Y[facility] [place] OBGYFransico [address] [place] [phone] Barb Luke PA [address] [place], [facility] Social History Tobacco UseTypesPacks/DayYears UsedDateSmoking Tobacco: FormerCigarettes1.515.9 [...] have six or more drinks on one occasion?Never4CommentsNoSex and Gender InformationValueDate RecordedSex Assigned at VflydQujccj96/28/2023 6:05 PM EDT Legal XvdLeuxrs93/04/2023 12:16 PM EDTGender UmzswhwrEvdmsv57/28/2023 6:05 PM EDTSexual EfdoofbcwrvXhifgukn60/28/2023 6:05 PM EDTdocumented as of this encounter Plan of Treatment DateTypeDepartmentCare Team (Latest Contact Info)Sjqedvupign13/11/2025 10:30 AM ESTConsult [facility] [place] [facility] [address] [place] [address] Jeremy Real DO [address] [place] [address] 02/21/2026 9:30 AM EDTOffice Visit [facility] [address] [place] [address] Regina Frost MD [address] [place] [address] documented as of this encounter Visit Diagnoses Not on filedocumented in this encounter Care Teams Team MemberRelationshipSpecialtyStart DateEnd Date Beronica Forte NP PCP - Mathew Barton11/24/24documented as of this encounter
--- OUTSIDE RECORDS SUMMARY | 2025-09-29 14:50 | XMS_ITS | Encounter Summary ---
Author Organization [facility] Address [address] [place] [address] Care Team Providers Care Rubber Roller Grinder Operator Name Role Phone Beronica Forte WEBSITE ADMIN Unavailable [phone] Encounter Details DateTypeDepartmentCare Team (Latest Contact Info)Vvnnecorrjt98/04/2025Travel Social History Tobacco UseTypesPacks/DayYears UsedDateSmoking Tobacco: FormerCigarettes1.515.9 [...] occasion?Never04/28/2024CommentsNoSex and Gender InformationValueDate RecordedSex Assigned at KskxrNmmzxd72/28/2023 6:05 PM EDT Legal MuzTijeay23/04/2023 12:16 PM EDTGender WhckcyrbVhvwcs32/28/2023 6:05 PM EDTSexual ZmxhoeqvxatYarfkeqb02/28/2023 6:05 PM EDTdocumented as of this encounter Plan of Treatment DateTypeDepartmentCare Team (Latest Contact Info)Nakyqoqkuve29/11/2025 10:30 AM ESTConsult [facility] [place] [facility] [address] [place] [phone] Jeremy Real DO [address] [place] [address] 02/21/2026 9:30 AM EDTOffice Visit [facility] [address] [place] [phone] Regina Frost MD [address] [place] [address] documented as of this encounter Visit Diagnoses Not on filedocumented in this encounter Care Teams Team MemberRelationshipSpecialtyStart DateEnd Date Beronica Forte NP PCP - Mathew Barton11/24/24documented as of this encounter
--- OUTSIDE RECORDS SUMMARY | 2025-09-29 14:50 | XMS_ITS | Encounter Summary ---
Author Organization [facility] Address [address] [place] [address] Care Team Providers Care Enterprise Systems Administrator Name Role Phone Rohit Herron PA-C Primary Care Provider [phone] Reason for Visit * ReasonCommentsMed Refill Encounter Details DateTypeDepartmentCare Team (Latest Contact Info)Ddytluiychu21/05/2025Refill [facility] [address] [phone] Rohit Herron PA-C [address] [facility] [address] [place] [address] Anxiety Social History Tobacco UseTypesPacks/DayYears UsedDateSmoking Tobacco: FormerCigarettes0.516.8 Started: 11/24/2008Smokeless Tobacco: NeverAlcohol UseStandard Drinks/Week CommentsNot Currently0 (1 standard drink = 0.6 oz pure alcohol)Maybe 2 or 3 times a yearHumiliation, Afraid, Rape, and Kick questionnaireAnswerDate Recorded Within the last year, have you been afraid of your partner or ex-partner?No 05/31/2025Within the last year, have you been humiliated or emotionally abused in other ways by your partner or ex-partner?No05/31/2025Within the last year, have you been kicked, hit, slapped, or otherwise physically hurt by your partner or ex-partner?No05/31/2025Within the last year, have you been raped or forced to have any kind of sexual activity by your partner or ex-partner?No05/31/2025 Social Connection and Isolation PanelAnswerDate RecordedIn a typical week, how many times do you talk on the phone with family, friends, or neighbors?Once a week05/31/2025How often do you get together with friends or relatives?Never 05/31/2025How often do you attend faith or taoist services?Never05/31/2025Do you belong to any clubs or organizations such as faith groups, unions, [employer] or athletic groups, or school groups?No05/31/2025How often do you attend meetings of the clubs or organizations you belong to?Never05/31/2025re you , , , , never , or living with a partner?Pyplhqk5505/31/2025UDIT-CAnswerDate RecordedQ1: How often do you have a drink containing alcohol?Never05/31/2025Q2: How many drinks containing alcohol do you have on a typical day when you are drinking?Patient does not drink 05/31/2025Q3: How often do you have six or more drinks on one occasion?Never 05/31/2025Overall Financial Resource Strain (CARDIA)AnswerDate RecordedHow hard is it for you to pay for the very basics like food, housing, medical care, and heating?Somewhat hard05/31/2025PHQ-2AnswerDate RecordedPatient Health Questionnaire-2 Etclk837Finsteward health care system [place] of Occupational Health - Occupational Stress QuestionnaireAnswerDate RecordedDo you feel stress - tense, restless, nervous, or anxious, or unable to sleep at night because yourmind is troubled all the time - these days?Very much05/31/2025Exercise Vital SignAnswer Date RecordedOn average, how many days per week do you engage in moderate to strenuous exercise (like a brisk walk)?2 days05/31/2025On average, how many minutes do you engage in exercise at this level?20 min05/31/2025UT Safety & EnvironmentAnswerDate RecordedFear of Current or Ex-PartnerNot on file01/15/2024 Emotionally AbusedNot on file01/15/2024hysically AbusedNot on file01/15/2024 Sexually AbusedNot on file01/15/2024hysically or Sexually AbusedNot on file 01/15/2024TransportationAnswerDate RecordedIn the past 12 months, has lack of transportation kept you from medical appointments or from getting medications? Yes05/31/2025In the past 12 months, has lack of transportation kept you from meetings, work, or from getting things needed for daily living?Yes05/31/2025 Housing Stability Vital SignAnswerDate RecordedIn the last 12 months, was there a time when you were not able to pay the mortgage or rent on time?No05/31/2025 Number of Times Moved in the Last YearNot on file05/31/2025Homeless in the Last YearNot on file05/31/2025Hunger Vital SignAnswerDate RecordedWithin the past 12 months, you worried that your food would run out before you got the money to buy more.Never true05/31/2025Within the past 12 months, the food you bought just didn't last and you didn't have money to get more.Never true05/31/2025 CommentsNoSex and Gender InformationValueDate RecordedSex Assigned at Ablvlk7210/27/2024 6:27 AM ESTLegal FrpJhvlfa33/30/2022 12:34 AM EDTGender QhkeuufwJqrmdx05/08/2025 9:50 AM EDTSexual OrientationHeterosexual or Straight 10/27/2024 6:27 AM ESTdocumented as of this encounter Plan of Treatment Not on file documented as of this encounter Visit Diagnoses Diagnosis Anxiety Anxiety state, unspecified documented in this encounter Care Teams Team MemberRelationshipSpecialtyStart DateEnd Date Rohit Herron PA-C [address] [place] [address] PCP - GeneralFamily Hayemynd75/8/24documented as of this encounter
--- OUTSIDE RECORDS SUMMARY | 2025-09-29 14:50 | XMS_ITS | Encounter Summary ---
Author Organization [facility] Address [address] [place] [address] [place] [address] Care Team Providers Care Door To Door Sales Representative Name Role Phone Beronica Forte ACCOUNT RESOLUTION ANALYST Unavailable [phone] Encounter Details DateTypeDepartmentCare Team (Latest Contact Info)Gfmqepdbzfm71/14/2024Clinisync Result Encounter [facility] Unsolicited Kathy Briggs MD [address] [place] [address] Social History Tobacco UseTypesPacks/DayYears UsedDateSmoking Tobacco: FormerCigarettes1.515.9 07/25/2007 - 06/24/2023Smokeless Tobacco: NeverAlcohol UseStandard Drinks/Week CommentsYes0 (1 standard drink = 0.6 oz pure alcohol)AUDIT-CAnswerDate Recorded Q1: How often do you have a drink containing alcohol?Monthly or less04/28/2024 Q2: How many drinks containing alcohol do you have on a typical day when you are drinking?1 or Q3: How often do you have six or more drinks on one occasion?Never04/28/2024CommentsNoSex and Gender InformationValueDate RecordedSex Assigned at EhxyaMgowhc06/28/2023 6:05 PM EDTLegal SexFemale 03/27/2023 12:16 PM EDTGender TdiywyrcJorhwy22/28/2023 6:05 PM EDTSexual CrustlsaskfQpnromtu18/28/2023 6:05 PM EDTdocumented as of this encounter Plan of Treatment DateTypeDepartmentCare Team (Latest Contact Info)Jvqqeqdwzgj12/11/2025 10:30 AM ESTConsult [facility] [place] [facility] [address] [place] [address] Jeremy Real, [address] [place] [address] 02/21/2026 9:30 AM EDTOffice Visit [facility] [address] [place] [address] Regina Frost MD [address] [place] [address] documented as of this encounter Procedures Procedure NamePriorityDate/TimeAssociated DiagnosisCommentsCT SOFT TISSUE NECK W IV NLSRVPMA92/14/2024 6:38 AM EST documented in this encounter Results * CT soft tissue neck w IV contrast (10/07/2024 6:38 AM EST)Anatomical Region LateralityModalityHead, NeckComputed TomographySpecimen (Source)Anatomical Location / LateralityCollection Method / VolumeCollection TimeReceived Time 10/07/2024 6:38 AM EST Narrative 10/07/2024 6:40 AM EST [facility] ?[address] ? [place] [address] ? CT Scan Report ? Signed ? Patient: KIERRA NATARAJAN ?MR#: [id number] ?? : 1990 ?Acct:[id number] ?? Age/Sex: 33 / F ?ADM Date: 10/06/24 ?? Loc: CT ? Attending Dr: Kathy Briggs M.D. ? Ordering Physician: Kathy Briggs M.D. ?? Date of Service: 10/06/24 ?? Procedure(s): CT soft tissue neck w con ?? Accession Number(s): [id number] ? cc: Physician,Non-Staff M.D. ? [facility] ? [address] ? [place] [address] ? Patient Name: ?? KIERRA NATARAJAN ? MRN: [id number] ? date: 1990 ?Sex: F ?? Assigned Patient Location: CT ?? Current Patient Location: ? Accession/Order Number: [id number] ?? Exam Date: 10/06/2024 ??14:20 ?Report Date: 10/07/2024 ??06:38 ? At the request of: ?? KATHY ??TIMMIS ? Procedure: ??CT soft tissue neck w con ? EXAMINATION: CT soft tissue neck w con ? HISTORY: Lymphadenopathy Of Left Cervical Region ? COMPARISON: No relevant comparison available. ? TECHNIQUE: Axial, Coronal, and Sagittal CT images created with IV contrast. ?? Dose reduction techniques were achieved by using automated exposure control ?? and/or adjustment of mA and/or kV according to patient size and/or use of ?? iterative reconstruction technique. ? FINDINGS: ?? NASOPHARYNX: No asymmetry of the fossae of Rosenmuller and torus tubarius. ?? ORAL CAVITY: No visible mass. ?? OROPHARYNX: No asymmetry of the facial and lingual tonsils. ?? HYPOPHARYNX: No mass or other visible lesion. ?? LARYNX: No mass or asymmetry of the vocal cords. ?? SINUSES: No significant fluid or mucosal thickening. ?? NECK GLANDS: No visible abnormality of the parotid, submandibular, and thyroid ? glands. ?? LYMPH NODES: No pathological-appearing or enlarged lymph nodes. ?? VASCULATURE: No suspicious abnormality. ?? BONES: No significant osseous lesions. ?? OTHER: No additional imaging findings. ? CT/CT soft tissue neck w con ?? IMPRESSION: ? 1. Skin surface marker localizing patient's palpable area overlies the right ?? parotid gland; no suspicious findings. ?? 2. Multiple small lymph nodes within the neck; no mass, fluid collection, or ?? suspicious findings. ? Electronically authenticated by: MP ??ROYAL ?? Date: 10/07/2024 ??06:38 ? Dictated By: ?Mp Aceves M.D. ? Signed By: ?10/07/24 0640 ? DD/ 0638 ? TD/TT: ? Galvanometer Assembler: Procedure Note Radiology, Radiologist, MD - 10/07/[address] [address] [address] Scan Report Signed Patient: KIERRA NATARAJAN LMR#: [id number] : 1990Acct:[id number] Age/Sex: 33 / FADM Date: 10/06/24 Loc: CT Attending Dr: Kathy Briggs M.D. Ordering Physician: Kathy Briggs M.D. Date of Service: 10/06/24 Procedure(s): CT soft tissue neck w con Accession Number(s): [id number] cc: Physician,Non-Staff [place] [address] Patient Name: KIERRA NATARAJAN MRN: [id number] date: 1990 Sex: F Assigned Patient Location: CT Current Patient Location: Accession/Order Number: [id number] Exam Date: 10/06/2024 14:20 Report Date: 10/07/2024 06:38 At the request of: KATHY BRIGGS Procedure: CT soft tissue neck w con EXAMINATION: CT soft tissue neck w con HISTORY: Lymphadenopathy Of Left Cervical Region COMPARISON: No relevant comparison available. TECHNIQUE: Axial, Coronal, and Sagittal CT images created with IVcontrast. Dose reduction techniques were achieved by using automated exposurecontrol and/or adjustment of mA and/or kV according to patient size and/or use of iterative reconstruction technique. FINDINGS: NASOPHARYNX: No asymmetry of the fossae of Rosenmuller and torus tubarius. ORAL CAVITY: No visible mass. OROPHARYNX: No asymmetry of the facial and lingual tonsils. HYPOPHARYNX: No mass or other visible lesion. LARYNX: No mass or asymmetry of the vocal cords. SINUSES: No significant fluid or mucosal thickening. NECK GLANDS: No visible abnormality of the parotid, submandibular, andthyroid glands. LYMPH NODES: No pathological-appearing or enlarged lymph nodes. VASCULATURE: No suspicious abnormality. BONES: No significant osseous lesions. OTHER: No additional imaging findings. CT/CT soft tissue neck w con IMPRESSION: 1. Skin surface marker localizing patient's palpable area overlies theright parotid gland; no suspicious findings. 2. Multiple small lymph nodes within the neck; no mass, fluid collection,or suspicious findings. Electronically authenticated by: MP ACEVES Date: 10/07/2024 06:38 Dictated By: Mp Aceves M.D. Signed By:10/07/24639 DD/ 7 TD/TT: Galvanometer Assembler: Authorizing ProviderResult TypeResult StatusHilabrigitte Briggs MDIMMelany CT PROCEDURES Final Result documented in this encounter Visit Diagnoses Not on filedocumented in this encounter Care Teams Team MemberRelationshipSpecialtyStart DateEnd Date Beronica Forte NP MARLENI Barton11/24/24documented as of this encounter
--- OUTSIDE RECORDS SUMMARY | 2025-09-29 14:50 | XMS_ITS | Patient Health Record ---
Author Organization [facility] Address [address] [place] [address] Care Team Providers Care Residential Sales Name Role Phone Rohit Herron PA-C Primary Care Provider Unavaila Maggy Young Unavailable [phone] Flores Braun Unavailable [phone] Reason For Referral No Information Encounters Encounter Location Date Provider Diagnosis [facility] [address] [place] [place] [address] 10/12/2024 Rohit Herron [facility] [facility] [place] [address] [facility] [address] Rohit Herron[address] [phone] [place] Plan Of Treatment No Information Insurance Providers Payer Name Payer Address Payer Phone Subscriber Number Group Number Insured Name Patient Relationship to Insured Coverage Start Date Coverage End Date ANTHEM ACCESS PPO PLUS LOCAL PLAN [address] [place] [address] [id number] Neville Natarajan Spouse - patient is the spouse of the insured 4
--- OUTSIDE RECORDS SUMMARY | 2025-09-29 14:51 | XMS_ITS | Encounter Summary ---
Author Organization [facility] Address [address] [place] [address] Care Team Providers Care Negative Turner Name Role Phone Rohit Herron PA-C Primary Care Provider [phone] Encounter Details DateTypeDepartmentCare Team (Latest Contact Info)Mraknibeywe39/24/2025Results Follow-Up [facility] [address] [address] Rohit Herron PA-C [address] [place] [address] Magnesium, Vitamin D 25 hydroxy, Comprehensive metabolic panel, Additional followed-up results: 3 Social History Tobacco UseTypesPacks/DayYears UsedDateSmoking Tobacco: FormerCigarettes0.516.8 [...] or relatives?Never 05/31/2025How often do you attend uatsdin or restorationism services?Never05/31/2025Do you belong to any clubs or organizations such as uatsdin groups, unions, [employer] or athletic groups, or school groups?No05/31/2025How often do you attend meetings of the clubs or organizations you belong to?Never05/31/2025re you , , , , never , or living with a partner?Joyvnwt1105/31/2025UDIT-CAnswerDate RecordedQ1: How often do you have a [...] care, and heating?Somewhat hard05/31/2025PHQ-2AnswerDate RecordedPatient Health Questionnaire-2 Opnwu308[facility] [place] of Occupational Health - Occupational Stress QuestionnaireAnswerDate [...] CommentsNoSex and Gender InformationValueDate RecordedSex Assigned at Jlrygq0410/27/2024 6:27 AM ESTLegal DrbYgmblv84/30/2022 12:34 AM EDTGender PurzphdkKkqibp65/08/2025 9:50 AM EDTSexual OrientationHeterosexual or Straight 10/27/2024 6:27 AM ESTdocumented as of this encounter Plan of Treatment Not on file documented as of this encounter Visit Diagnoses Not on filedocumented in this encounter Care Teams Team MemberRelationshipSpecialtyStart DateEnd Rohit Herron PA-C [address] [place] [address] PCP - GeneralFamily Eyvlyzvd28/8/24documented as of this encounter
--- OUTSIDE RECORDS SUMMARY | 2025-09-29 14:51 | XMS_ITS | Clinical Summary ---
Author Organization [employer] Address [id number] [place] [address] Care Team Providers Care Cops Name Role Phone No Pcp, No Pcp Primary Care Provider Unavailabl e Allergies No known active allergies Medications * This document contains information received from the source organization and may not represent a complete record from that organization. MedicationSigDispense QuantityRefillsLast FilledStart DateEnd DateStatus hydrOXYzine (ATARAX) 10 mg tablet Take 10 mg by mouth 3 (three) times a day as needed for itching.Active busPIRone (BUSPAR) 5 mg tablet Indications:Generalized anxiety disorderTake 1 tablet (5 mg total) by mouth in the morning and 1 tablet (5 mg total) in the evening. 60 tablet 5Active Active Problems ProblemNoted DateDiagnosed DateDepressive iiavkmxo73/20/2019Endometriosis 06/04/2016Exposure to sexually transmitted disease (STD)06/04/2016 Overview (08/24/2018): problem replaced by 2018 ICD 02 September Update Papanicolaou smear for cervical cancer mzjyrxdry14/12/2016 Family History Medical HistoryRelationNameCommentsHyperlipidemiaFatherHypertensionFatherRheum arthritisMaternal GrandmotherOvarian cancerMaternal great-grandmother HyperlipidemiaMotherHypertensionMotherRheum arthritisMotherCervical cancer Paternal GrandmotherRelationNameStatusCommentsFatherAliveMaternal Grandmother AliveMaternal great-grandmotherAliveMotherAlivePaternal Grandmother Social History Tobacco UseTypesPacks/DayYears UsedDateSmoking Tobacco: Every ObyHqusmizgvb70.8 Started: 12/25/2016Smokeless Tobacco: Never Tobacco Cessation:Counseling Given: Yes Alcohol UseStandard Drinks/WeekCommentsYes0 (1 standard drink = 0.6 oz pure alcohol)rarePHQ-2AnswerDate RecordedTotal Egevu194/21/2025ChildcareAnswerDate ZdyiikjwKqufodxonZsjcfae14/11/2019EmploymentAnswerDate RecordedEmploymentUnknown 05/04/2019Purpose - LifeAnswerDate RecordedPurpose and direction in lifeUnknown 1CommentsNoSex and Gender InformationValueDate RecordedSex Assigned at WolgyKxnwur27/19/2022 7:31 PM EDTLegal IqgImregu81/04/2015 9:30 PM EDTGender OmqhyzfvSeescx47/19/2022 7:31 PM EDTSexual OrientationStraight 07/12/2022 7:31 PM EDT Last Filed Vital Signs Vital SignReadingTime TakenCommentsBlood Ihttrfld151/7009 3:23 PM EDT Xetme765708/12/2022 3:23 PM ZKBKxligyegxzx82.7 ??C (98.1 ??F)08/12/2022 1:14 PM EDTRespiratory Rawm175308/12/2022 3:23 PM EDTOxygen Qmkhbzqhfz929%08/12/2022 3:23 PM EDTInhaled Oxygen Concentration--Rwcqcs205.1 kg (256 lb)07/23/2022 10:29 AM STLSsrido043.3 cm (5' 9 )07/23/2022 10:29 AM EDTBody Mass Index37.808 10:29 AM EDT Plan of Treatment Health MaintenanceDue DateLast DoneCommentsDTaP,Tdap and Td Vaccines (6 - Tdap) , 03/30/1991, 09/11/1990, Additional history existsTobacco Tnpvyehip00/29/2001Adult BMI Ptvcyulob26/29/2007COVID-19 Vaccine ( season)/, 02/17/2021Influenza Cceletg66/12/2012, 08/06/2012, 08/13/2011, Additional history existsDepression Krtqaiufm51/21/2026 05/14/2025Pap Smear, 07/01/2022, 07/01/2022 Medical Devices Not on file Procedures Procedure NamePriorityDate/TimeAssociated DiagnosisCommentsHIGH RISK HPV W/WILLIAM Esexdeu7307/01/2022 5:01 AM EDT from Last 3 Months or Most Recently Relevant to Health Maintenance Results * High risk HPV w/william (07/01/2022 5:01 AM EDT)ComponentValueRef RangeTest MethodAnalysis TimePerformed AtPathologist SignatureHpv specimen typeThinPrep 07/03/2022 5:02 AM EDTSUNQUESTHpv 16NegativeNegative^Ykckbboe81/11/2022 1:20 PM [facility]Hpv 18NegativeNegative^Yennkzkz36/11/2022 1:20 PM [facility] LABOther high risk hpvNegative Negative^Qhaadjqj84/11/2022 1:20 PM [facility] LABComment: HPV types 31,33,35,39,45,52,56,58,59,66 and 68 DNA were undetectable. Specimen (Source)Anatomical Location / LateralityCollection Method / Volume Collection TimeReceived BkntMIZWW33/08/2022 5:01 AM EDT07/02/2022 5:01 AM EDT Narrative Authorizing ProviderResult TypeResult StatusCochristelle BROWN BLOOD ORDERABLESFinal ResultPerforming OrganizationAddressCity/State/ZIP CodePhone Number [facility] [address] [place] [address] from Last 3 Months or Most Recently Relevant to Health Maintenance Insurance * Guarantor: Eloisa Natarajan TypeRelation to PatientDate of PhoneBilling AddressThird Democrat LarcctkypCbuq1990 [address] [place] [phone] Advance Directives * Full Code (Latest Code Status on File) Date ActivatedDate InactivatedComments07/13/2019 12:51 AM07/13/2019 7:56 PM Care Teams Team MemberRelationshipSpecialtyStart DateEnd Date No Pcp, [place] [address] PCP - GeneralFamily Medicine05/31/24
--- OUTSIDE RECORDS SUMMARY | 2025-09-29 14:51 | XMS_ITS | Clinical Summary ---
Author Organization [facility] Address [address] [place] [address] Care Team Providers Care Interchange Agent Name Role Phone Rohit Herron PA-C Primary Care Provider [phone] Allergies Active AllergyReactionsCriticalityNoted DateCommentsDextromethorphan-Guaifenesin Fsvtdkl7804/10/2023 Medications MedicationSigDispense QuantityRefillsLast FilledStart DateEnd DateStatus metFORMIN ER (GLUCOPHAGE XR) 500 mg 24 hr tablet Take 500 mg by mouth once daily.Active hydrOXYzine HCl (ATARAX) 10 mg tablet Take 10 mg by mouth as needed.07/21/2009ctive baclofen 10 mg tablet Indications:Right trigeminal neuralgiaTake half-1 tablet twice a day as needed for facial pain, may cause drowsiness 30 tablet 5Active Cholecalciferol, Vitamin D3, (VITAMIN D-3) 10 mcg (400 unit) chew 04/24/2024ctive Clindamycin Phosphate (CLEOCIN T) 1 % lotion Apply 1 application to affected area as needed.06/06/2024ctive fluticasone (FLONASE) 50 mcg/actuation nasal spray Use 2 sprays in each nostril once daily.5Active magnesium glycinate 118 mg magnesium cap Take 118 mg by mouth once daily.04/24/2024ctive escitalopram oxalate (LEXAPRO) 5 mg tablet Take 5 mg by mouth.5Active indomethacin (INDOCIN) 25 mg capsule Take 1-2 capsules every 8 hours with food, as needed for headache. 180 capsule 5Active Omeprazole 20 mg TbEC 1 tab daily while taking Indomethacin. 30 tablet 5Active Active Problems ProblemNoted DateDiagnosed DateOccipital neuralgia of right side07/05/2025 Intractable chronic migraine without aura and without status migrainosus 07/05/2025Hemicrania ebllsxva18/12/2025hronic daily yhvvixbe96/12/2025Migraine without aura and without status migrainosus, not afamoghuefs53/12/2025 Encounters DateTypeDepartmentCare ZiakIfmisobqsvm33/06/2025Telephone Neurology [address] [place] [address] Antonio Farr DO Chemical Operator - Other09/28/2025Results Follow-Up Ophthalmology [address] [address] Solo Loza MD 09/06/2025 8:15 AM EDTOffice Visit OPHT Ophthalmology [address] [place], [place] [id number] Solo Loza MD Diplopia (Primary Dx); Convergence insufficiency; Alternating exotropia; Other localized visual field defect, eeajjjbnn22/09/2025 Patient Msg Ophthalmology [address] [address] Provider, Ccf Appointment Ezwippuifot35/07/4771Gswtut59/06/2025 Get Medical Advice Neurology [address] [place] [address] Antonio Farr DO Indomethacin meds adafce7107/16/2025 Get Medical Advice Neurology [address] [place] [address] Antonio Farr DO Indomethacin - hives on torso07/13/2025 Get Medical Advice Neurology [address] [place] [address] Antonio Farr DO Day 5 Update on Indomethacin Uymrucvece88/12/2025 1:00 PM EDTOffice Visit Neurology [address] [place] [address] Antonio Farr DO Chronic daily headache (Primary Dx); Hemicrania continua; Intractable chronic migraine without aura and without status migrainosus; Chronic migraine without aura, intractable, without status migrainosus; Occipital neuralgia of right side; Migraine without aura and without status migrainosus, not intractable; Trigeminal nerve disorder; Right trigeminal jaadajcfx87/10/2025Travelfrom Last 3 Months Social History Tobacco UseTypesPacks/DayYears UsedDateSmoking Tobacco: FormerCigarettesQuit: mokeless Tobacco: Never Tobacco Cessation:Counseling Given: Not Answered Alcohol UseStandard Drinks/WeekCommentsNever0 (1 standard drink = 0.6 oz pure alcohol)PHQ-2AnswerDate RecordedPHQ-2 ofwvs792rea Deprivation Index AnswerDate RecordedNational Score (1-100), lower number is lower risk64 03/31/2025State Score (1-10), lower number is lower wkyd094Data from: https://www.neighborhoodatlas.medicine.[facility].edu/. Last address used for [address] [facility] [address]/31/2025CommentsNoSex and Gender InformationValueDate RecordedSex Assigned at BirthNot on fileLegal SexFemale 10/28/2024 10:36 AM ESTGender IdentityNot on fileSexual OrientationNot on file Last Filed Vital Signs Vital SignReadingTime TakenCommentsBlood Ifxtrxmz415/8008 12:58 PM EDT Cexih9247/12/2025 12:58 PM UGHDyuzgdivylt68.7 ??C (98.1 ??F)03/30/2025 4:30 PM EDTRespiratory Thfk531703/30/2025 4:30 PM EDTOxygen Ogehsxvcfg85%03/30/2025 4:30 PM EDTInhaled Oxygen Concentration--Gfdbnu658.5 kg (248 lb)07/05/2025 12:58 PM IYIYlqbyl776.4 cm (5' 9.06 )03/15/2025 11:01 AM EDTBody Mass Index36.56 03/15/2025 11:01 AM EDT Plan of Treatment Health MaintenanceDue DateLast DoneCommentsAnxiety Gurneqilz30/29/2007Depression Gvxarfgdp28/29/2007HIV Hgajadexp87/29/2007Hepatitis C Jkmhrysdt13/29/2007 Hepatitis B Vaccine (1 of 3 - 19+ 3-dose series)2008Cervical Cancer Nmztagqsq31/29/2010HPV Vaccine (1 - 3-dose SCDM series)2016Covid-19 Vaccine ( - 2024- season)2025Influenza Vaccine (#1)2025 DTaP,Tdap,Td Vaccine (2 - Td or Tdap) Procedures Procedure NamePriorityDate/TimeAssociated DiagnosisCommentsACETYLCHOLINE REC BLOCKING CWBdhdoyw15/28/2025 10:11 AM EDT Diplopia ACETYLCHOLINE REC BINDING PRUxmmutu48/28/2025 10:11 AM EDT Diplopia ACETYLCHO R MOD SUCzldlcb11/28/2025 10:11 AM EDT Diplopia THYROID PEROXIDASE ANTIBODY AGVHEKooriss02/28/2025 10:11 AM EDT Diplopia TSH NLDXonlyou73/28/2025 10:11 AM EDT Diplopia THYROID STIMULATING IMMUNOGLOBULIN TCJDCVetmklw00/28/2025 10:11 AM EDT Diplopia T4/THYROXINE DZVDMLdoaasa79/28/2025 10:11 AM EDT Diplopia T4 FREE/FREE QMNPASCzgktdo96/28/2025 10:11 AM EDT Diplopia T3 FREE UVMVhllezr81/28/2025 10:11 AM EDT Diplopia VISUAL FIELD 24-2 OU (BOTH EYES)Aosahjg2409/06/2025 9:42 AM EDT Other localized visual field defect, bilateral from Last 3 Months Results * ACETYLCHOLINE REC BLOCKING AB (09/20/2025 10:11 AM EDT)ComponentValueRef Range Test MethodAnalysis TimePerformed AtPathologist SignatureAcetylcholine Blocking, AvaiPqvjqietQfcqupny84/03/2025 2:46 PM [facility] Comment:Anti-acetylcholine receptor blocking antibody test is used as an aid in diagnosis of myasthenia gravis. A negative result cannot exclude myasthenia gravis. Clinical correlation is required.Acetylcholine Receptor Blocking<13<21 % Kfwgruekcp57/03/2025 2:46 PM [facility] LABSpecimen (Source) Anatomical Location / LateralityCollection Method / VolumeCollection Time Received TimeBloodBLOOD SPECIMEN / UnknownVenipuncture / Bawvwrw9109/20/2025 10:11 AM EDT1 10:11 AM EDT Narrative Authorizing ProviderResult TypeResult StatusSolo Loza MDLABORATORYFinal Result Performing OrganizationAddressCity/State/ZIP CodePhone Number [facility] [address] [place] [address], * ACETYLCHOLINE REC BINDING AB (09/20/2025 10:11 AM EDT)ComponentValueRef Range Test MethodAnalysis TimePerformed AtPathologist SignatureAcetylcholine, Binding, KnrrAtfzxsouJibvcjbs64/29/2025 3:[address] [facility] Comment:Anti-acetylcholine receptor binding antibody test is used as an aid in diagnosis of myasthenia gravis. A negative result cannot exclude myasthenia gravis. Clinical correlation is required.Acetylcholine Receptor Binding<0.02 <0.21 nmol/L1 3:[address] [facility] LABSpecimen (Source) Anatomical Location / LateralityCollection Method / VolumeCollection Time Received TimeBloodBLOOD SPECIMEN / UnknownVenipuncture / Jwtbmvd4409/20/2025 10:11 AM EDT1 10:11 AM EDT Narrative Authorizing ProviderResult TypeResult StatusSolo BROWNORATORYFinal Result Performing OrganizationAddressCity/State/ZIP CodePhone Number [facility] [address] [place] [address], * THYROID STIMULATING IMMUNOGLOBULIN BLOOD (09/20/2025 10:11 AM EDT)Component ValueRef RangeTest MethodAnalysis TimePerformed AtPathologist SignatureTSI BewkgiciylhFpkupioyVayupqsz74/29/2025 11:55 AM [facility] LABTSI <0.10<0.55 IU/L1 11:55 AM [facility] LABComment:Thyroid Stimulating Immunoglobulin test is used as an aid in diagnosis of autoimmune hyperthyroidism especially in patients with Grave's orbitopathy and dermopathy. Low positive TSH receptor stimulating antibody levels may occasionally be found in patients with autoimmune hypothyroidism. Clinical co rrelation is required.Specimen (Source)Anatomical Location / Laterality Collection Method / VolumeCollection TimeReceived TimeBloodBLOOD SPECIMEN / UnknownVenipuncture / Ibilwwc5109/20/2025 10:11 AM EDT1 10:11 AM EDT Narrative Authorizing ProviderResult TypeResult StatusSolo Loza MDLABORATORYFinal Result Performing OrganizationAddressCity/State/ZIP CodePhone Number [facility] [address] * THYROID STIMULATING HORMONE (09/20/2025 10:11 AM EDT)ComponentValueRef Range Test MethodAnalysis TimePerformed AtPathologist SignatureTSH1.0600.270 - 4.200 mIU/L1 7:37 PM [facility] LABComment: If the patient is , TSH reference range varies by gestational period: First Trimester (weeks 9-12): 0.180-2.990 mIU/L Second Trimester: 0.110-3.980 mIU/L Third Trimester: 0.480-4.710 mIU/L Reece Hale et al. A Practical Approach for the Verifications and Determination of Site- and Trimester-Specific Reference Intervals for Thyroid Function tests in . Thyroid, 2019:29:3:412-420.Ace Dunn, et al. 2017 Guidelines of the [place] Thyroid Association for the Diagnosis and Management of Thyroid Disease during and the . Thyroid, 2017:27:3:315-389. Specimen (Source)Anatomical Location / LateralityCollection Method / Volume Collection TimeReceived TimeBloodBLOOD SPECIMEN / UnknownVenipuncture / Unknown 09/20/2025 10:11 AM EDT1 10:11 AM EDT Narrative Authorizing ProviderResult TypeResult StatusSolo Loza MDLABORATORYFinal Result Performing OrganizationAddressCity/State/ZIP CodePhone Number [facility] [address] [place] [phone], [place] * T4/THYROXINE (09/20/2025 10:11 AM EDT)ComponentValueRef RangeTest Method Analysis TimePerformed AtPathologist HlctmfpwfM31.15.5 - 10.2 ug/dL09/20/2025 7:[address] [facility] LABSpecimen (Source)Anatomical Location / LateralityCollection Method / VolumeCollection TimeReceived TimeBloodBLOOD SPECIMEN / UnknownVenipuncture / Egxlnab5109/20/2025 10:11 AM EDT1 10:11 AM EDT Narrative Authorizing ProviderResult TypeResult StatusDeroe Loza MDLABORATORYFinal Result Performing OrganizationAddressCity/State/ZIP CodePhone Number [facility] [address] [place] [phone], [place] * T4 FREE/FREE THYROXINE (09/20/2025 10:11 AM EDT)ComponentValueRef RangeTest MethodAnalysis TimePerformed AtPathologist SignatureFree T41.00.9 - 1.7 ng/dL 09/20/2025 7:[address] [facility] LABSpecimen (Source)Anatomical Location / LateralityCollection Method / VolumeCollection TimeReceived Time BloodBLOOD SPECIMEN / UnknownVenipuncture / Levtltw1209/20/2025 10:11 AM EDT 09/20/2025 10:11 AM EDT Narrative Authorizing ProviderResult TypeResult StatusSolo Loza MDLABORATORYFinal Result Performing OrganizationAddVeterans Affairs [facility] Healthcare Systemty/State/ZIP CodePhone Number [facility] [address] [place] [phone], [place] * T3, FREE (09/20/2025 10:11 AM EDT)ComponentValueRef RangeTest MethodAnalysis TimePerformed AtPathologist SignatureFree T32.72.3 - 4.1 pg/mL09/20/2025 7:[address] [facility] LABSpecimen (Source)Anatomical Location / LateralityCollection Method / VolumeCollection TimeReceived TimeBloodBLOOD SPECIMEN / UnknownVenipuncture / Kfpnwjd7209/20/2025 10:11 AM EDT1 10:11 AM EDT Narrative Authorizing ProviderResult TypeResult StatusSolo Loza MDLABORATORYFinal Result Performing OrganizationAddressCity/State/ZIP CodePhone Number [facility] [address] [place] [phone], * THYROID PEROXIDASE ANTIBODY (09/20/2025 10:11 AM EDT)ComponentValueRef Range Test MethodAnalysis TimePerformed AtPathologist SignatureTHYROID PEROXIDASE ANTIBODY4.3<5.6 IU/mL09/20/2025 7:[address] [facility] LABComment: Thyroid Peroxidase Antibody test is used as an aid in diagnosis of autoimmune thyroid disease. Clinical correlation is required.Specimen (Source)Anatomical Location / LateralityCollection Method / VolumeCollection TimeReceived Time BloodBLOOD SPECIMEN / UnknownVenipuncture / Qgtmqzr3809/20/2025 10:11 AM EDT 09/20/2025 10:11 AM EDT Narrative Authorizing ProviderResult TypeResult StatusSolo Loza MDLABORATORYFinal Result Performing OrganizationAddressCity/State/ZIP CodePhone Number [facility] [address] [place] [phone], * ACETYLCHOLINE RECEPTOR MODULATING ANTIBODY (09/20/2025 10:11 AM EDT)Component ValueRef RangeTest MethodAnalysis TimePerformed AtPathologist Signature Acetylcholine Recept/Modulating0<=45 %09/23/2025 1:57 PM EDTAUNM [facility] Comment: INTERPRETIVE INFORMATION: Acetylcholine Modulating Ab ??Negative .......... ??0-45 percent modulating ??Positive .......... ??46 percent or greater modulating Approximately 85-90 percent of patients with myasthenia gravis (MG) express antibodies to the acetylcholine receptor (AChR), which can be divided into binding, blocking, and modulating antibodies. Binding antibody can activate complement and lead to loss of AChR. Blocking antibody may impair binding of acetylcholine to the receptor, leading to poor muscle contraction. Modulating antibody causes receptor endocytosis resulting in loss of AChR expression, which correlates most closely with clinical severity of disease. Approximately 10-15 percent of individuals with confirmed myasthenia gravis have no measurable binding, blocking, or modulating antibodies. This test was developed and its performance characteristics determined by [facility] [employer]. It has not been cleared or approved by the [place] Food and Drug Administration. This test was performed in a CLIA certified laboratory and is intended for clinical purposes. Performed By: [facility] [address] [place] [address] Supervisor Riprap Placing: Walter Mayorga MD, PhD CLIA Number: [id number] Specimen (Source)Anatomical Location / LateralityCollection Method / Volume Collection TimeReceived TimeBloodBLOOD SPECIMEN / UnknownVenipuncture / Unknown 09/20/2025 10:11 AM EDT1 10:11 AM EDT Narrative Authorizing ProviderResult TypeResult StatusSolo Loza MDLABORATORYFinal Result Performing OrganizationAddressCity/State/ZIP CodePhone Number [facility] [address] [place] [address] * VISUAL FIELD 24-2 OU (BOTH EYES) (09/06/2025 9:42 AM EDT)Anatomical Region LateralityModalityOther Narrative 09/06/2025 10:12 AM EDT Date of Procedure 09/06/2025 Dough Brake Machine Operator Information Curb Supervisor: Ladan Udeg Start time: 9:41 AM Reliability Right Eye Poor. Left Eye Good. Interpretation Right Eye Non-specific defect. Left Eye Non-specific defect. Interval Change Right Eye Initial Left Eye Initial Authorizing ProviderResult TypeResult StatusSolo Loza MDOPHTHALMOLOGYFinal Result from Last 3 Months Insurance Care Teams Team MemberRelationshipSpecialtyStart DateEnd Date Rohit Herron PA-C [address] [place], [place] [phone] [facility]/30/25
--- OUTSIDE RECORDS SUMMARY | 2025-09-29 14:51 | XMS_ITS | Encounter Summary ---
Author Organization [facility] Address [address] [place] [address] Care Team Providers Care Dairy Equipment Mechanic Name Role Phone AlexBeronica bello PATHOLOGICAL TECHNICIAN Unavailable [phone] Encounter Details DateTypeDepartmentCare Team (Latest Contact Info)Acsozbgouds96/02/2024Clinisync Result Encounter [facility] Unsolicited Barb Stallings PA [address] [place] [address] [address] [place], [place] [id number] Social History Tobacco UseTypesPacks/DayYears UsedDateSmoking Tobacco: FormerCigarettes1.515.9 [...] occasion?Never04/28/2024CommentsNoSex and Gender InformationValueDate RecordedSex Assigned at ToxyfVrnkix56/28/2023 6:05 PM EDTLegal SexFemale 03/27/2023 12:16 PM EDTGender SpnzughlAepplp78/28/2023 6:05 PM EDTSexual MvikhpndfrqAbyjnyxa73/28/2023 6:05 PM EDTdocumented as of this encounter Plan of Treatment DateTypeDepartmentCare Team (Latest Contact Info)Kgsafmpjbhl41/11/2025 10:30 AM ESTConsult [facility] [place] [facility] [address] [address] Jeremy Real, [address] [place] [address] 02/21/2026 9:30 AM EDTOffice Visit [facility] [address] [place] [phone] Regina Frost MD [address] [place] [address] documented as of this encounter Procedures Procedure NamePriorityDate/TimeAssociated DiagnosisCommentsUS PELVIS W/ KRDRCWZDAQRW58/02/2024 7:11 AM EDT documented in this encounter Results * US PELVIS W/ TRANSVAGINAL (08/25/2024 7:11 AM EDT)Anatomical RegionLaterality ModalityOtherSpecimen (Source)Anatomical Location / LateralityCollection Method / VolumeCollection TimeReceived Time08/25/2024 7:11 AM EDT Narrative 08/25/2024 7:13 AM EDT [facility] ?[address] ? [place] [address] ? Ultrasound Report ? Signed ? Patient: YOVANNYKIERRA L ?MR#: [id number] ?? : 1990 ?Acct:[id number] ?? Age/Sex: 33 / F ?ADM Date: 08/24/24 ?? Loc: US ? Attending Dr: Barb Stallings ? Ordering Physician: Barb Stallings ?? Date of Service: 08/24/24 ?? Procedure(s): US pelvis w/ transvaginal ?? Accession Number(s): [id number] ? cc: Barb Stallings; Willam Walter NP ? [facility] ? [address] ? [place] [address] ? Patient Name: ?? KIERRA NATARAJAN ? [facility]: [facility]:[id number] ? date: 1990 ?Sex: F ?? Assigned Patient Location: [place] ?? Current Patient Location: ? Accession/Order Number: [id number] ?? Exam Date: 08/24/2024 ??16:45 ?Report Date: 08/25/2024 ??07:11 ? At the request of: ?? BARB ??HAYLIE ? Procedure: ??US pelvis w/ transvaginal ? EXAMINATION: US pelvis w/ transvaginal ? HISTORY: Irregular Periods, N92.6 ? COMPARISON: No relevant comparison available. ? FINDINGS: ? The uterus is retroverted. Uterus measures 7.9 x 4.5 x 5.8 cm. 7 mm area of ?? hypoechogenicity within the body of the myometrium ? The endometrium measures 7.7 mm, within normal limits. Area of anechoic ?? echogenicity cervix measuring 3 mm, nabothian cyst is favored. ? The right ovary is normal measuring 3.6 x 2.0 x 2.2 cm. Normal color and ?? Doppler flow ? The left ovary is normal measuring 3.8 x 2.0 x 3.3 cm. Normal color and ?? Doppler ?? flow ? No ascites ? US/US pelvis w/ transvaginal ?? IMPRESSION: ? 7 mm myometrial lesion, a fibroid is favored ? Electronically authenticated by: ELSIE ??GARETT ?? Date: 08/25/2024 ??07:11 ? Dictated By: ?Elsie Bajwa M.D. ? Signed By: ?08/25/24 0713 ? DD/ 0711 ? TD/TT: ? Power Generation Plant Operator: Procedure Note Radiology, Radiologist, MD - 08/25/2024 [place] [address] Ultrasound Report Signed Patient: KIERRA NATARAJAN LMR#: [id number] : 1990Acct:[id number] Age/Sex: 33 / FADM Date: 08/24/24 Loc: US Attending Dr: Barb Stallings Ordering Physician: Barb Stallings Date of Service: 08/24/24 Procedure(s): US pelvis w/ transvaginal Accession Number(s): [id number] cc: Barb Stallings; Willam Walter NP [address] [address] Patient Name: KIERRA NATARAJAN MRN: [id number]:[id number] date: 1990 Sex: F Assigned Patient Location: [place] Current Patient Location: Accession/Order Number: [id number] Exam Date: 08/24/2024 16:45 Report Date: 08/25/2024 07:11 At the request of: BARB STALLINGS Procedure: US pelvis w/ transvaginal EXAMINATION: US pelvis w/ transvaginal HISTORY: Irregular Periods, N92.6 COMPARISON: No relevant comparison available. FINDINGS: The uterus is retroverted. Uterus measures 7.9 x 4.5 x 5.8 cm. 7 mm areaof hypoechogenicity within the body of the myometrium The endometrium measures 7.7 mm, within normal limits. Area of anechoic echogenicity cervix measuring 3 mm, nabothian cyst is favored. The right ovary is normal measuring 3.6 x 2.0 x 2.2 cm. Normal color and Doppler flow The left ovary is normal measuring 3.8 x 2.0 x 3.3 cm. Normal color and Doppler flow No ascites US/US pelvis w/ transvaginal IMPRESSION: 7 mm myometrial lesion, a fibroid is favored Electronically authenticated by: ELSIE BAJWA Date: 08/25/2024 07:11 Dictated By: Elsie Bajwa M.D. Signed By:08/25/24712 DD/ 0 TD/TT: Power Generation Plant Operator: Authorizing ProviderResult TypeResult StatusAmy Haylie PACLINISYNC IMAGINGFinal Result documented in this encounter Visit Diagnoses Not on filedocumented in this encounter Care Teams Team MemberRelationshipSpecialtyStart DateEnd Date Beronica Forte NP MARLENI Barton11/24/24documented as of this encounter
--- OUTSIDE RECORDS SUMMARY | 2025-09-29 14:51 | XMS_ITS | Clinical Summary ---
Author Organization [facility] Address [address] [place] [address] Care Team Providers Care Line O Scribe Operator Name Role Phone Rohit Herron PA-C Primary Care Provider [phone] Allergies Active AllergyReactionsCriticalityNoted DateCommentsDextromethorphan-Guaifenesin Jfepkws2904/10/2023 Medications MedicationSigDispense QuantityRefillsLast FilledStart DateEnd DateStatus carBAMazepine (Carbatrol) 300 mg 12 hr capsule Take 300 mg by mouth two times daily.09/23/2024ctive baclofen (Lioresal) 5 mg tablet Take 5 mg by mouth three times daily. PRNActive AMOXICILLIN 100 MG-POTASSIUM CLAVULANATE 14.25 MG CHEWABLE SPLIT TABLET (Augmentin) 10/01/2024ctive ibuprofen 800 mg tablet Take 800 mg by mouth.09/04/2024ctive niacin 500 mg ER capsule Take 500 mg by mouth in the morning. Do not crush, chew, or split.Active NON FORMULARY Take by mouth. Patient taking Vitamin D3 unknow doseActive OXcarbazepine (Trileptal) 600 mg tablet Indications:Trigeminal neuralgia of right side of faceTake 1 tablet (600 mg) by mouth two times daily. 60 tablet 5Active Additional Information Patient not taking.Reported on 07/14/2025 rizatriptan (Maxalt) 10 mg tablet Indications:Migraine without status migrainosus, not intractable, unspecified migraine typeTake 1 tablet (10 mg) by mouth 1 (one) time if needed for migraine. May repeat in 2 hours if unresolved. Do not exceed 30 mg in 24 hours. 9 tablet 111/21/2024Active metFORMIN (Glucophage) 500 mg tablet 08/11/2023ctive clindamycin (Cleocin T) 1 % lotion APPLY THIN LAYER TO AFFECTED AREA ONCE DAILY NEEDED FOR PJROST8906/06/2024 Active cyclobenzaprine (Flexeril) 5 mg tablet Take 1 tablet 3 times a day by oral route as needed for 3 days.Active azelastine (Astelin) 137 mcg (0.1 %) nasal spray Indications:Allergic rhinitis, unspecified seasonality, unspecified trigger Administer 1 spray into each nostril two times daily. Use in each nostril as directed 30 mL 50507/ctive cetirizine (ZyrTEC) 10 mg tablet Indications:Allergic rhinitis, unspecified seasonality, unspecified triggerTake 1 tablet (10 mg) by mouth in the morning. 90 tablet ctive indomethacin (Indocin) 25 mg capsule Take 25 mg by mouth with breakfast, with lunch, and with evening meal. Patient reports dosage variesActive fluticasone (Flonase) 50 mcg/actuation nasal spray Indications:Allergic rhinitis, unspecified seasonality, unspecified trigger Administer 1 spray into each nostril two times daily. Shake gently. Before first use, prime pump. After use, clean tip and replace cap. 48 g ctive prazosin (Minipress) 1 mg capsule Indications:Night terrorsTake 1 capsule (1 mg) by mouth at bedtime. 30 capsule ctive omeprazole (PriLOSEC) [address] capsule Indications:Hemicrania continuaTAKE 1 CAPSULE BY MOUTH ONCE DAILY IN THE MORNING BEFORE BREAKFAST DO NOT CRUSH OR CHEW 90 capsule 07/14/2025tive escitalopram (Lexapro) 10 mg tablet Indications:AnxietyTake 1 tablet (10 mg) by mouth in the morning. 90 tablet ctive triamcinolone (Kenalog) 0.1 % cream Indications:RashApply to affected area 2 times daily as needed. Avoid face and groin. 80 g /ctive hydrOXYzine HCL (Atarax) 25 mg tablet Indications:AnxietyTake 1 tablet by mouth in the evening 90 tablet 5Active hydrOXYzine HCL (Atarax) 25 mg tablet Indications:AnxietyTake 1 tablet (25 mg) by mouth in the evening. 90 tablet Discontinued Active Problems ProblemNoted DateDiagnosed DateNight jcwfckk5807/17/2025Vitamin D deficiency 07/17/2025Hemicrania utibfkxw55/24/7470Lqzcuycuvmurgf85/24/2025llergic rhinitis 07/17/2025ADHD112/29/2023Infertility, rvqian4210/28/2024Trigeminal neuralgia of right side of face09/01/2024 Overview (10/28/2024): Right side only, primarily lower face, numbness, dull ache, sometimes extreme pain in teeth and burning. Chronic bilateral low back pain without wtuwaujx72/24/3697Iwqjspag56/24/2024 Nbbngtksg79/24/2024Saddle cjhgargzgx42/24/2024Occipital neuralgia of right side 07/01/20246013Vcopfal19/05/2024Neurologic gait jxdrhtyxmad92/05/2024Lipoma of thigh 02/01/2022igarette kkcpjg2002/01/2022besity with body mass index 30 or greater 02/01/2022Ventricular premature beats02/27/2021remature atrial contraction 02/27/2021Intermittent idozqzusdnzo41/06/2021High-density lipoprotein deficiency 02/27/2021Generalized anxiety fcpoxgef94/06/2021Mass of soft tissue of left lower foahyokhc48/06/2021epressive wkekjgsm93/20/2019Papanicolaou smear for cervical cancer mkkaltbty26/12/2016Exposure to sexually transmitted disease (STD)06/04/2016 Overview (04/17/2023): problem replaced by 2018 ICD 10 August Update Cwvkaknrjxujc82/12/2016 Encounters DateTypeDepartmentCare AnspChwjwxghqtn03/05/2025[facility] [address] [place] [address] Rohit Herron PA-C Borjkob7607/21/2025Orders Only [facility] [address] [place] [address] [place] [address] Rohit Herron PA-C Rash (Primary Dx)07/20/2025Orders Only [facility] [address] [place] [address] [place] [address] Rohit Herron PA-C Dqsucfv0407/17/2025Results Follow-Up [facility] [address] [place] [address] [place] [address] Rohit Herron PA-C Magnesium, Vitamin D 25 hydroxy, Comprehensive metabolic panel, Additional followed-up results: 9:45 AM EDTLab [facility] [address] [place] [address] [place] [address] Hypomagnesemia; Vitamin D deficiency; Annual physical exam07/14/2025 9:00 AM EDTOffice Visit [facility] [address] [place] [address] [place] [address] Rohit Herron PA-C Annual physical exam (Primary Dx); Hemicrania continua; Anxiety; Night terrors; Allergic rhinitis, unspecified seasonality, unspecified trigger; Vitamin D deficiency; Hgvhpokaztvuqm10/21/2025Refill [facility] [address] [place] [address] [place] [address] Rohit Herron PA-C Hemicrania continuafrom Last 3 Months Family History Medical HistoryRelationNameCommentsAlcohol abuseFatherFrankCancerFatherFrank Anxiety disorderMotherLaurieArthritisMotherLaurieDepressionMotherLaurieArthritis Mother's BrotherHoraceArthritisMother's Sister 1LizArthritisMother's Sister 2 VirginiaAlcohol abuseSisterMandyAnxiety disorderSisterMandyRelationNameStatus CommentsFatherFrankMotherLaurieMother's BrotherHoraceMother's Sister 1Liz Mother's Sister 2VirginiaSisterMandy Social History Tobacco UseTypesPacks/DayYears UsedDateSmoking Tobacco: FormerCigarettes0.516.8 Started: 11/24/2008Smokeless Tobacco: Never Tobacco Cessation:Counseling Given: Not Answered Alcohol UseStandard Drinks/WeekCommentsNot Currently0 (1 standard drink = 0.6 oz pure alcohol)Maybe 2 or 3 times a yearHumiliation, Afraid, Rape, and Kick questionnaireAnswerDate RecordedWithin the last year, have you been afraid of your partner or ex-partner?No05/31/2025Within the last year, have you been humiliated or emotionally abused in other ways by your partner or ex-partner?No 05/31/2025Within the last year, have you been kicked, hit, slapped, or otherwise physically hurt by your partner or ex-partner?No05/31/2025Within the last year, have you been raped or forced to have any kind of sexual activity by your part ner or ex-partner?No05/31/2025Social Connection and Isolation PanelAnswerDate RecordedIn a typical week, how many times do you talk on the phone with family, friends, or neighbors?Once a week05/31/2025How often do you get together with friends or relatives?Never05/31/2025How often do you attend episcopal or catholic services?Never05/31/2025Do you belong to any clubs or organizations such as episcopal groups, unions, fraternal or athletic groups, or school groups?No 05/31/2025How often do you attend meetings of the clubs or organizations you belong to?Never05/31/2025re you , , , , never , or living with a partner?Efhhgia3705/31/2025UDIT-CAnswerDate RecordedQ1: How often do you have a drink containing alcohol?Never05/31/2025Q2: How many drinks containing alcohol do you have on a typical day when you are drinking? Patient does not drink05/31/2025Q3: How often do you have six or more drinks on one occasion?Never05/31/2025Overall Financial Resource Strain (CARDIA)AnswerDate RecordedHow hard is it for you to pay for the very basics like food, housing, medical care, and heating?Somewhat hard05/31/2025PHQ-2AnswerDate RecordedPatient Health Questionnaire-2 Ryigu954[facility] [place] [facility] Occup[facility] - Occupational Stress QuestionnaireAnswerDate RecordedDo you feel stress - tense, restless, nervous, or anxious, or unable to sleep at night because your mind is troubled all the time - these days?Very much05/31/2025Exercise Vital SignAnswerDate RecordedOn average, how many days per week do you engage in moderate to strenuous exercise (like a brisk walk)?2 days05/31/2025On average, how many minutes do you engage in exercise at this level?20 min05/31/2025UT Safety & EnvironmentAnswerDate RecordedFear of Current or Ex-PartnerNot on file 01/15/2024Emotionally AbusedNot on file01/15/2024hysically AbusedNot on file 01/15/2024Sexually AbusedNot on file01/15/2024hysically or Sexually AbusedNot on file01/15/2024TransportationAnswerDate RecordedIn the past 12 months, has lack of transportation kept you from medical appointments or from getting medications?Yes05/31/2025In the past 12 months, has lack of transportation kept you from meetings, work, or from getting things needed for daily living?Yes 05/31/2025Housing Stability Vital SignAnswerDate RecordedIn the last 12 months, was there a time when you were not able to pay the mortgage or rent on time?No 05/31/2025Number of Times Moved in the Last YearNot on file05/31/2025Homeless in the Last YearNot on file05/31/2025Hunger Vital SignAnswerDate RecordedWithin the past 12 months, you worried that your food would run out before you got the money to buymore.Never true05/31/2025Within the past 12 months, the food you bought just didn't last and you didn't have money to get more.Never true 05/31/2025CommentsNoSex and Gender InformationValueDate RecordedSex Assigned at XvhdeQnbeka77/04/2024 6:27 AM ESTLegal TyzTywplr58/30/2022 12:34 AM EDTGender UxcfsyfyGpzijj94/08/2025 9:50 AM EDTSexual OrientationHeterosexual or Ifnecnju95/04/2024 6:27 AM EST Last Filed Vital Signs Vital SignReadingTime TakenCommentsBlood Qeljtzlx370/8708 8:49 AM EDT Xlofi732507/14/2025 8:49 AM JSGPdgjfmqipir59.9 ??C (98.5 ??F)09/26/2024 6:54 AM ESTRespiratory Cjuf866311/26/2023 7:40 AM ESTOxygen Odfgncqhfj803%07/14/2025 8:49 AM EDTInhaled Oxygen Concentration--Rrjsah889 kg (252 lb)07/14/2025 8:49 AM EDT Phecst587.3 cm (5' 9 )07/14/2025 8:49 AM EDTBody Mass Index37.21007/14/2025 8:49 AM EDT Plan of Treatment Health MaintenanceDue DateLast DoneCommentsVaricella Vaccines (1 of 2 - 13+ 2- dose series)2002Hepatitis B Vaccines (1 of 3 - 19+ 3-dose series) 2008dult Efifddy9710/22/2011HPV Vaccines (1 - 3-dose SCDM series)2016 HPV/Xuirkf5510/22/2019COVID-19 Vaccine ( - season)2025Influenza Vaccine (#1)2025Depression Vlbolbqrh87/21/837526/ervical Cancer Pgaalcrlg47/26/2027Pap Smear08/19/59561808/19/2024, 07/22/2022Zoster Vaccines (1 of 2)2039HIB VaccinesAged OutNo longer eligible based on patient's age to complete this topicIPV VaccinesAged OutNo longer eligible based on patient's age to complete this topicMeningococcal B VaccineAged OutNo longer eligible based on patient's age to complete this topicMeningococcal VaccineAged OutNo longer eligible based on patient's age to complete this topicPneumococcal Vaccine: Pediatrics (0 to 5 Years) and At-Risk Patients (6 to 64 Years)Aged OutNo longer eligible based on patient's age to complete this topicRotavirus VaccinesAged Out No longer eligible based on patient's age to complete this topic Procedures Procedure NamePriorityDate/TimeAssociated DiagnosisCommentsCBC WITH AUTO EJNCXSFRTSTFQfjvbir76/21/2025 9:56 AM EDT Annual physical exam LIPID JWCFKDbthuqh92/21/2025 9:56 AM EDT Annual physical exam TSH3 REFLEX TO AL7Utkocer67/21/2025 9:56 AM EDT Annual physical exam COMPREHENSIVE METABOLIC FNTNSFjabgbc67/21/2025 9:56 AM EDT Annual physical exam CBC AND BBYYSINTFPWJMivbanq42/21/2025 9:56 AM EDT Annual physical exam VITAMIN D 25 SBEBTMCIdbtixo25/21/2025 9:56 AM EDT Vitamin D deficiency DLJBIEUSXUaqzgym97/21/2025 9:56 AM EDT Hypomagnesemia from Last 3 Months Results * TSH3 Reflex to FT4 (07/14/2025 9:56 AM EDT)ComponentValueRef RangeTest Method Analysis TimePerformed AtPathologist SignatureTSH1.950.34 - 5.60 mIU/L 07/14/2025 1:52 PM [facility]TM[facility] ([place] [facility]FT[facility])Specimen (Source)Anatomical Location / LateralityCollection Method / VolumeCollection TimeReceived Time BloodVenous blood specimen / UnknownVenipuncture / Nddnlie5007/14/2025 9:56 AM EDT07/14/2025 9:56 AM EDT Narrative Authorizing ProviderResult TypeResult StatusRohit PAGE BLOOD ORDERABLES Final ResultPerforming OrganizationAddressCity/State/ZIP CodePhone Number [facility] ([facility]) [address] [place] [address] * (ABNORMAL) CBC auto differential (07/14/2025 9:56 AM EDT)ComponentValueRef RangeTest MethodAnalysis TimePerformed AtPathologist SignatureAuto WBC7.144.00 - 10.60 10*3/uL07/14/2025 1:03 PM [facility] ([facility])RBC4.743.80 - 5.00 10*6/uL07/14/2025 1:03 PM [facility] ([facility])Ujshshrkmy88.712.0 - 15.0 g/dL07/14/2025 1:03 PM [facility] ([facility])Peatknhqkx66.436.0 - 45.0 %07/14/2025 1:03 PM [facility] ([facility])MCV87.382.0 - 98.0 fL 07/14/2025 1:03 [facility] ([facility])MCH28.927.0 - 33.0 pg 07/14/2025 1:03 [facility] ([facility])MCHC33.132.0 - 35.0 g/dL 07/14/2025 1:03 [facility] ([facility])RDW13.311.5 - 15.0 %07/14/2025 1:03 [facility] ([facility])Neutrophils %69.840.0 - 72.0 %07/14/2025 1:03 PM [facility] ([facility])Lymphocytes %19.9(L)20.0 - 45.0 % 07/14/2025 1:03 PM [facility] ([facility])Monocytes %6.95.0 - 12.0 % 07/14/2025 1:03 PM [facility] ([facility])Eosinophils %2.40.0 - 6.0 % 07/14/2025 1:03 [facility] ([facility])Basophils %0.60.0 - 1.0 % 07/14/2025 1:03 PM [facility] ([facility])Neutrophils Absolute4.991.60 - 7.60 10*3/uL07/14/2025 1:03 PM [facility] ([facility])Lymphocytes Absolute1.421.20 - 4.00 10*3/uL07/14/2025 1:03 PM [facility] ([facility])Monocytes Absolute0.490.10 - 1.00 10*3/uL07/14/2025 1:03 PM [facility] ([facility])Eosinophils Absolute0.170.00 - 0.50 10*3/uL07/14/2025 1:03 PM [facility] ([facility])Basophils Absolute0.040.00 - 0.20 10*3/uL 07/14/2025 1:03 PM [facility] ([facility])Mvmghthso462053 - 400 10*3/uL 07/14/2025 1:03 PM [facility] ([facility])nRBC %0.00 %07/14/2025 1:03 PM [facility] ([facility])Immature Granulocytes %0.40.0 - 1.0 %07/14/2025 1:03 PM [facility] ([facility])Immature Granulocytes Absolute0.030.00 - 0.20 10*3/07/14/2025 1:03 PM [facility] ([facility])Specimen (Source) Anatomical Location / LateralityCollection Method / VolumeCollection Time Received TimeBloodVenous blood specimen / UnknownVenipuncture / Unknown 07/14/2025 9:56 AM EDT07/14/2025 9:56 AM EDT Narrative Authorizing ProviderResult TypeResult StatusJojason PAGE BLOOD ORDERABLES Final ResultPerforming OrganizationAddressCity/State/ZIP CodePhone Number [facility] ([facility]) [address] [place] [address] * Vitamin D 25 hydroxy (07/14/2025 9:56 AM EDT)ComponentValueRef RangeTest MethodAnalysis TimePerformed AtPathologist SignatureVit D, 25-Fojzpfp51.230.0 - 80.0 ng/mL07/14/2025 2:25 PM [facility] ([facility])Comment:>80.0 Toxicity possibleSpecimen (Source)Anatomical Location / LateralityCollection Method / VolumeCollection TimeReceived TimeBloodVenous blood specimen / UnknownVenipuncture / Dwchhqx4707/14/2025 9:56 AM EDT07/14/2025 9:56 AM EDT Narrative Authorizing ProviderResult TypeResult StatusRohit Herron PA-CLAB BLOOD ORDERABLES Final ResultPerforming OrganizationAddressCity/State/ZIP CodePhone Number [facility] ([facility]) [address] [place] [address] * Magnesium (07/14/2025 9:56 AM EDT)ComponentValueRef RangeTest MethodAnalysis TimePerformed AtPathologist SignatureMagnesium2.21.9 - 2.7 mg/dL07/14/2025 1:44 PM [facility] ([facility])Specimen (Source)Anatomical Location / LateralityCollection Method / VolumeCollection TimeReceived TimeBloodVenous blood specimen / UnknownVenipuncture / Kjdsdnn4507/14/2025 9:56 AM EDT07/14/2025 9:56 AM EDT Narrative Authorizing ProviderResult TypeResult StatusRohit Herron PA-CLAB BLOOD ORDERABLES Final ResultPerforming OrganizationAddressCity/State/ZIP CodePhone Number [facility]) [address] [place] [address] * Lipid panel (07/14/2025 9:56 AM EDT)ComponentValueRef RangeTest MethodAnalysis TimePerformed AtPathologist YapwnxshlKmsxlqddsfrhx15<150 mg/dL07/14/2025 1:44 PM [facility] ([facility])Comment: TRIGLYCERIDE REFERENCE RANGE: 20 YEARS AND OLDER ?CARDIOVASCULAR RISK LESS THAN 150 mg/dL ? LOW RISK 150 TO 199 mg/dL ?BORDERLINE RISK 200 mg/dL AND GREATER ? HIGH RISK Ssqnqszqdxc596068 - 200 mg/dL07/14/2025 1:44 PM [facility] ([facility])LDL Obflaqgaxs6159 - 160 mg/dL07/14/2025 1:44 PM [facility] ([facility])HDL37 23 - 92 mg/dL07/14/2025 1:44 PM [facility] ([facility])Non HDL Cholesterol 3504707/14/2025 1:44 PM [facility] ([facility])Total VLDL-C190 - 40 mg/dL 07/14/2025 1:44 PM [facility] ([facility])Cholesterol/HDL Ratio5.3mg/dL 07/14/2025 1:44 PM [facility] ([facility])Specimen (Source)Anatomical Location / LateralityCollection Method / VolumeCollection TimeReceived TimeBlood Venous blood specimen / UnknownVenipuncture / Dogqcqc1407/14/2025 9:56 AM EDT 07/14/2025 9:56 AM EDT Narrative Authorizing ProviderResult TypeResult StatusJojason PAGE BLOOD ORDERABLES Final ResultPerforming OrganizationAddressCity/State/ZIP CodePhone Number [facility] ([facility]) [address] [place] [address] * Comprehensive metabolic panel (07/14/2025 9:56 AM EDT)ComponentValueRef Range Test MethodAnalysis TimePerformed AtPathologist EhadxwigrVsdjwm948536 - 145 mmol/L07/14/2025 1:44 PM [facility] ([facility])Potassium4.23.5 - 5.1 mmol/L07/14/2025 1:44 PM [facility] ([facility])Qymgssxk53148 - 107 mmol/L07/14/2025 1:44 PM [facility] ([facility])TZ60340 - 31 mmol/L 07/14/2025 1:44 PM [facility] ([facility])Anion Ofq018 - 20 mmol/L 07/14/2025 1:44 PM [facility] ([facility])XFA198 - 25 mg/dL07/14/2025 1:44 PM [facility] ([facility])Creatinine0.950.60 - 1.20 mg/dL07/14/2025 1:44 PM [facility] ([facility])BUN/Creatinine Ratio16.808 1:44 PM [facility] ([facility])Dpxjtwz9113 - 100 mg/dL07/14/2025 1:44 PM EDT [facility] ([facility])Calcium9.18.6 - 10.3 mg/dL07/14/2025 1:44 PM [facility] ([facility])NUI9492 - 39 U/L07/14/2025 1:44 PM [facility] ([facility])ALT (SGPT)147 - 52 U/L07/14/2025 1:44 PM [facility] ([facility]) Alkaline Dfpqgvwiokc9815 - 104 U/L07/14/2025 1:44 PM [facility] ([facility])Total Protein7.06.0 - 8.3 g/dL07/14/2025 1:44 PM [facility] ([facility])Albumin4.33.5 - 5.7 g/dL07/14/2025 1:44 PM [facility] ([facility])Total Bilirubin0.40.3 - 1.0 mg/dL07/14/2025 1:44 PM [facility] ([facility])eGFR80.1>60.0 mL/min/1.73m* 1:44 PM [facility] ([facility])Comment:[facility]???s estimated glomerular filtration rate (eGFR) will [...] not disproportionately affect any one group of individuals.Specimen (Source) Anatomical Location / LateralityCollection Method / VolumeCollection Time Received TimeBloodVenous blood specimen / UnknownVenipuncture / Unknown 07/14/2025 9:56 AM EDT07/14/2025 9:56 AM EDT Narrative Authorizing ProviderResult TypeResult StatusJojason PAGE BLOOD ORDERABLES Final ResultPerforming OrganizationAddressCity/State/ZIP CodePhone Number [facility] ([place]) [address] [place] [address] from Last 3 Months Insurance Care Teams Team MemberRelationshipSpecialtyStart DateEnd Date Rohit Herron PA-C [address] [place] [id number] PCP - GeneralFamily Iukvcamy94/8/24
--- OUTSIDE RECORDS SUMMARY | 2025-09-29 14:51 | XMS_ITS | Encounter Summary ---
Author Organization [facility] Address [address] [place], [place] [address] Care Team Providers Care Furnace Fitter Name Role Phone Rohit Herron PA-C Primary Care Provider [phone] Source Comments In the event this information is protected by the Federal Confidentiality of Alcohol and Drug AbusePatient Records regulations: The Federal rules restrict any use of the information to criminally investigate or prosecute any alcohol or drug abuse patient.[facility] Reason for Visit * ReasonCommentsCare Coordinator - Other Encounter Details DateTypeDepartmentCare Team (Latest Contact Info)Ayhcpaooysj43/06/2025Telephone Neurology [address] [place] [address] Antonio Farr, DO [facility] [address] [place] [address] Printed Products Assembler - Other Social History Tobacco UseTypesPacks/DayYears UsedDateSmoking Tobacco: FormerCigarettesQuit: mokeless Tobacco: NeverAlcohol UseStandard Drinks/WeekCommentsNever0 (1 standard drink = 0.6 oz pure alcohol)PHQ-2AnswerDate RecordedPHQ-2 score3 5Area Deprivation IndexAnswerDate RecordedNational Score (1-100), lower number is lower mdnt232803/31/2025State Score (1-10), lower number is lower risk4 03/31/2025Data from: https://www.neighborhoodatlas.medicine.[facility]/. Last address used for h[address] [facility] [address]/31/2025CommentsNoSex and Gender InformationValueDate RecordedSex Assigned at BirthNot on fileLegal CdeCpkqkx13/05/2024 10:36 AM ESTGender IdentityNot on fileSexual OrientationNot on filedocumented as of this encounter Miscellaneous Notes * Telephone Encounter - Alisa Olivo RN - 09/29/2025 12:18 PM EST Pt calling in states she is scheduled with [facility]DI[facility] THERAPIST on 11/01/25 for diagnostic laparoscopy and chronopertubation. Her surgeon is requesting a letter from Dr. Farr clearing her for this surgical procedure from Neuro standpoint. If agreeable to this please fax letter to Dr. Real [phone]. # [phone] documented in this encounter Plan of Treatment Not on file documented as of this encounter Visit Diagnoses Not on filedocumented in this encounter Care Teams Team MemberRelationshipSpecialtyStart DateEnd Date Rohit Herron, HAKEEM [address] [facility] [address] [place] [address] PCP - GeneralFamily Medicine03/30/25documented as of this encounter
--- OUTSIDE RECORDS SUMMARY | 2025-09-29 14:51 | XMS_ITS | Encounter Summary ---
Author Organization [facility] Address [address] [place] [address] Care Team Providers Care Java Web Engineer Name Role Phone Rohit Herron PA-C Primary Care Provider [phone] Source Comments In the event this information is protected by the Federal Confidentiality of Alcohol and Drug AbusePatient Records regulations: The Federal rules restrict any use of the information to criminally investigate or prosecute any alcohol or drug abuse patient.[facility] Encounter Details DateTypeDepartmentCare Team (Latest Contact Info)Rpfcppghihs65/06/2025 Get Medical Advice Neurology [address] [place] [address] Antonio Farr, DO [facility] [address] [place] [address] Indomethacin meds update Social History Tobacco UseTypesPacks/DayYears UsedDateSmoking Tobacco: FormerCigarettesQuit: mokeless Tobacco: NeverAlcohol UseStandard Drinks/WeekCommentsNever0 (1 standard drink = 0.6 oz pure alcohol)PHQ-2AnswerDate RecordedPHQ-2 score3 5Area Deprivation IndexAnswerDate RecordedNational Score (1-100), lower number is lower qhwn205303/31/2025State Score (1-10), lower number is lower risk4 03/31/2025Data from: https://www.neighborhoodatlas.medicine.[facility].edu/. Last address used for [address] [facility] [address]/31/2025CommentsNoSex and Gender InformationValueDate RecordedSex Assigned at BirthNot on fileLegal LfaVejqsz64/05/2024 10:36 AM ESTGender IdentityNot on fileSexual OrientationNot on filedocumented as of this encounter Miscellaneous Notes * Telephone Encounter - Luanne Magaña - 09/01/2025 3:10 PM EDT Patient last seen on 07/05/25 fyi documented in this encounter Plan of Treatment Not on file documented as of this encounter Visit Diagnoses Not on filedocumented in this encounter Care Teams Team MemberRelationshipSpecialtyStart DateEnd Date Rohit Herron, HAKEEM [address] [facility] [address] [place] [address] PCP - GeneralFamily Medicine03/30/25documented as of this encounter
--- OUTSIDE RECORDS SUMMARY | 2025-09-29 14:51 | XMS_ITS | Encounter Summary ---
Author Organization [facility] Address [address] [place] [address] Care Team Providers Care Stock Receiver Name Role Phone Rohit Herron PA-C Primary Care Provider [phone] Source Comments In the event this information is protected by the Federal Confidentiality of Alcohol and Drug AbusePatient Records regulations: The Federal rules restrict any use of the information to criminally investigate or prosecute any alcohol or drug abuse patient.[facility] Encounter Details DateTypeDepartmentCare Team (Latest Contact Info)Qecaphgfdom55/05/2025Results Follow-Up Ophthalmology [address] [place] [address] Solo Loza MD [address] [place], [place] [id number] Social History Tobacco UseTypesPacks/DayYears UsedDateSmoking Tobacco: FormerCigarettesQuit: mokeless Tobacco: NeverAlcohol UseStandard Drinks/WeekCommentsNever0 (1 standard drink = 0.6 oz pure alcohol)PHQ-2AnswerDate RecordedPHQ-2 score3 5Area Deprivation IndexAnswerDate RecordedNational Score (1-100), lower number is lower iqjb765203/31/2025State Score (1-10), lower number is lower risk4 03/31/2025Data from: https://www.neighborhoodatlas.medicine.[facility].edu/. Last address used for v[address] [facility] CommentsNoSex and Gender InformationValueDate RecordedSex Assigned at BirthNot on fileLegal StmVthiyv51/05/2024 10:36 AM ESTGender IdentityNot on fileSexual OrientationNot on filedocumented as of this encounter Plan of Treatment Not on file documented as of this encounter Visit Diagnoses Not on filedocumented in this encounter Care Teams Team MemberRelationshipSpecialtyStart DateEnd Date Rohit Herron PA-C [address] [facility] [address] [place] [address] PCP - GeneralFamily Medicine03/30/25documented as of this encounter
[2025-10-03 14:08] LABS: Age Gdln ACOG Testing Note (.); IGP, Aptima HPV, rfx 16/18,45 Note (.)
== END 2025-09-29 14:49 | disposition home or self-care (01) ==
LOC: LAB 14:48
PROVIDERS: Visit Provider Physician Assistant
DX: Z01.419 Encounter for gynecological examination (general) (routine) without abnormal findings (principal)
CPT/HCPCS: 87624; 88175

== ENCOUNTER 2025-10-19 07:53 | Day surgery (SDC) | payer BC, SELFPAY ==
--- OUTSIDE RECORDS SUMMARY | 2024-10-15 04:00 | XMS_ITS ---
Author Organization [facility] Address [address] [place] [address] Care Team Providers Care Co Teacher Name Role Phone Rohit Herron PA-C Primary Care Provider Maggy Melchor [phone] REASON FOR VISIT New PT Onc Encounters Encounter Location Date Provider Diagnosis [address] [place] [address] 10/15/2024 Maggy Colorado Plan Of Treatment No Information Progress Notes * Eloisa NATARAJAN LDOB: [birth year] (34 yo F)Acc No.[id number]:10/15/2024 UNLOCKED PROGRESS NOTE Progress Notes Patient: Eloisa ALLISON :?Maggy Colorado MDDOB:1990???Age:33 Y ???Sex:FemaleDate:4Phone:[phone]:[address] [address], [facility]-[id number]:Rohit Herron PA-C Subjective: * Chief Complaints: * 1 . New PT Onc. * Medical History: Objective: * Vitals: Assessment: Plan: * Treatment: * * Electronic signature of Maggy Colorado MD, [id number] on 10/19/2025 at 07:57 AM ESTSign off status: PendingVisit Status:?CONFPHONE (Voice) * Provider: Ady Colorado MD Date: 12/15/2023 Generated for Printing/Faxing/eTransmitting on:?10/19/2025 07:57 AM EST
--- OUTSIDE RECORDS SUMMARY | 2024-11-09 09:00 | XMS_ITS ---
Author Organization The [facility] in [place] Address [address] [place] [address] Care Team Providers Care Bioengineer Name Role Phone Rohit Herron PA-C Primary Care Provider Flores Ybarra [phone] REASON FOR VISIT New PT Onc Encounters Encounter Location Date Provider Diagnosis [facility] Oncology [address] [place] [phone] 11/09/2024 Flores Braun Plan Of Treatment No Information Progress Notes * Eloisa NATARAJAN LDOB: [birth year] (34 yo F)Acc No.[id number]:11/09/2024 UNLOCKED PROGRESS NOTE Progress Notes Patient: Eloisa ALLISON :?Flores Braun M.D.:1990???Age:34 Y ???Sex:FemaleDate:4Phone:[phone]:[address] [place] [address], [facility]-[address]Kig:Rohit Herron PA-C Subjective: * Chief Complaints: * 1 . New PT Onc. * Medical History: Objective: * Vitals: Assessment: Plan: * Treatment: * * Electronic signature of Flores Braun MD, [id number] on 10/19/2025 at 07:57 AM ESTSign off status: PendingVisit Status:?CANC (Cancelled) * Provider: Farhan Braun M.D. Date: 01/10/2024 Generated for Printing/Faxing/eTransmitting on:?10/19/2025 07:57 AM EST
--- OUTSIDE RECORDS SUMMARY | 2024-11-30 09:30 | XMS_ITS ---
Author Organization The [facility] in [place] Address [address] [place] [address] Care Team Providers Care Travel Ticketing Reviewer Name Role Phone Rohit Herron PA-C Primary Care Provider Flores Ybarra [phone] REASON FOR VISIT MD Calzada PT Hem Encounters Encounter Location Date Provider Diagnosis [facility] Oncology [address] [place] [phone] 11/30/2024 Flores Braun Plan Of Treatment No Information Progress Notes * Eloisa NATARAJAN LDOB: [birth year] (34 yo F)Acc No.[id number]:11/30/2024 UNLOCKED PROGRESS NOTE Progress Notes Patient: Eloisa ALLISON :?Flores Braun M.D.:1990???Age:34 Y ???Sex:FemaleDate:11/30/2024Phone:[phone]:[address] [place] [address], [place], O[facility]H-[id number]:Rohit Herron PA-C Subjective: * Chief Complaints: * 1 . New PT Hem. * Medical History: Objective: * Vitals: Assessment: Plan: * Treatment: * * Electronic signature of Flores Branu MD, [id number] on 10/19/2025 at 07:57 AM ESTSign off status: PendingVisit Status:?CANC (Cancelled) * Provider: Farhan Braun M.D. Date: 0 11/30/2024 Generated for Printing/Faxing/eTransmitting on:?10/19/2025 07:57 AM EST
--- OUTSIDE RECORDS SUMMARY | 2025-10-19 07:57 | XMS_ITS | Patient Health Record ---
Author Organization [facility] [place] Address [address] [place] [address] Care Team Providers Care Rn Emergency Room Name Role Phone Rohit Herron PA-C Primary Care Provider UnavailFlores Lin Unavailable [phone] Reason For Referral No Information Plan Of Treatment No Information Insurance Providers Payer Name Payer Address Payer Phone Subscriber Number Group Number Insured Name Patient Relationship to Insured Coverage Start Date Coverage End Date ANTHEM ACCESS PPO PLUS LOCAL PLAN [address] [place] [phone] [id number] Neville Natarajan Spouse - patient is the spouse of the insured 4
--- OUTSIDE RECORDS SUMMARY | 2025-10-19 07:57 | XMS_ITS | Clinical Summary ---
Author Organization [facility] Address [address] [place] [address] Care Team Providers Care Senior Computer Specialist Name Role Phone Rohit Herron PA-C Primary Care Provider [phone] Allergies Active AllergyReactionsCriticalityNoted DateCommentsDextromethorphan-Guaifenesin Pgpcjbp7004/10/2023 Medications MedicationSigDispense QuantityRefillsLast FilledStart DateEnd DateStatus metFORMIN [...] Apply 1 application to affected area as needed.4Active magnesium glycinate 118 mg magnesium cap Take 118 mg by mouth once daily.04/24/2024ctive escitalopram oxalate (LEXAPRO) 5 mg tablet Take 5 mg by mouth.5Active indomethacin (INDOCIN) 25 mg capsule Take 1-2 capsules every 8 hours with food, as needed for headache. 180 capsule 5Active Omeprazole 20 mg TbEC 1 tab daily while taking Indomethacin. 30 tablet 5Active fluticasone (FLONASE) 50 mcg/actuation nasal spray Use 2 sprays in each nostril once daily.Expired Active Problems ProblemNoted DateDiagnosed DateOccipital neuralgia of right side07/05/2025 Intractable chronic migraine without aura and without status migrainosus 07/05/2025Hemicrania mfslascc45/12/2025hronic daily sbukgywy11/12/2025Migraine without aura and without status migrainosus, not kgpsnphyqxl99/12/2025 Encounters DateTypeDepartmentCare MudaLmwbywcbvuc60/06/2025Telephone Neurology [address] [place] [address] Antonio Farr DO Family Day Care Worker - Other09/28/2025Results Follow-Up Ophthalmology [address] [place] [id number] Solo Loza MD 09/06/2025 8:15 AM EDTOffice Visit OPHT Ophthalmology [address] [place], [place] [address] Solo Loza MD Diplopia (Primary Dx); Convergence insufficiency; Alternating exotropia; Other localized visual field defect, xthwkgtqi96/09/2025 Patient Msg Ophthalmology [address] [address] Provider, [facility] Appointment Rzvvcujddzr64/07/0397Rbmyrz44/06/2025 Get Medical Advice Neurology [address] [address] Antonio Farr DO Indomethacin meds updatefrom Last 3 Months Social History Tobacco UseTypesPacks/DayYears UsedDateSmoking Tobacco: FormerCigarettesQuit: mokeless Tobacco: Never Tobacco Cessation:Counseling Given: Not Answered Alcohol UseStandard Drinks/WeekCommentsNever0 (1 standard drink = 0.6 oz pure alcohol)PHQ-2AnswerDate RecordedPHQ-2 gpycv887rea Deprivation Index AnswerDate RecordedNational Score (1-100), lower number is lower risk64 03/31/2025State Score (1-10), lower number is lower wvod597Data from: https://www.neighborhoodatlas.medicine.[facility]/. Last address used for [address] [facility] CommentsNoSex and Gender InformationValueDate RecordedSex Assigned at BirthNot on fileLegal SexFemale 10/28/2024 10:36 AM ESTGender IdentityNot on fileSexual OrientationNot on file Last Filed Vital Signs Vital SignReadingTime TakenCommentsBlood Lvrwpdqq675/8008/10/2025 12:58 PM EDT Qesmj9790/12/2025 12:58 PM VUVOcgpudnvimw87.7 ??C (98.1 ??F)03/30/2025 4:30 PM EDTRespiratory Ayyc559303/30/2025 4:30 PM EDTOxygen Vbvjmedpha36%03/30/2025 4:30 PM EDTInhaled Oxygen Concentration--Hoohub428.5 kg (248 lb)07/05/2025 12:58 PM XALJbrljd159.4 cm (5' 9.06 )03/15/2025 11:01 AM EDTBody Mass Index36.56 03/15/2025 11:01 AM EDT Plan of Treatment Health MaintenanceDue DateLast DoneCommentsAnxiety Pnfsngbyr17/29/2007Depression Dxutlqesd25/29/2007HIV Ielwkainp87/29/2007Hepatitis C Rmbnzjueb45/29/2007 Hepatitis B Vaccine (1 of 3 - 19+ 3-dose series)2008Cervical Cancer Wvugqlswn81/29/2010HPV Vaccine (1 - 3-dose SCDM series)2016Covid-19 Vaccine ( season)2025Influenza Vaccine (#1)2025 DTaP,Tdap,Td Vaccine (2 - Td or Tdap) Procedures Procedure NamePriorityDate/TimeAssociated DiagnosisCommentsACETYLCHOLINE REC BLOCKING PTAvuhevh07/28/2025 10:11 AM EDT Diplopia ACETYLCHOLINE REC BINDING SINdpotnd83/28/2025 10:11 AM EDT Diplopia ACETYLCHO R MOD GNTesmxsv84/28/2025 10:11 AM EDT Diplopia THYROID PEROXIDASE ANTIBODY QCTZXIzxzcya25/28/2025 10:11 AM EDT Diplopia TSH YINMammlor22/28/2025 10:11 AM EDT Diplopia THYROID STIMULATING IMMUNOGLOBULIN RZWOGQgaldmu74/28/2025 10:11 AM EDT Diplopia T4/THYROXINE IIWILGrhwgho52/28/2025 10:11 AM EDT Diplopia T4 FREE/FREE OJUEOXIcdqoqx61/28/2025 10:11 AM EDT Diplopia T3 FREE VBYNzwgkbv49/28/2025 10:11 AM EDT Diplopia VISUAL FIELD 24-2 OU (BOTH EYES)Knzqfaq5909/06/2025 9:42 AM EDT Other localized visual field defect, bilateral from Last 3 Months Results * ACETYLCHOLINE REC BLOCKING AB (09/20/2025 10:11 AM EDT)ComponentValueRef Range Test MethodAnalysis TimePerformed AtPathologist SignatureAcetylcholine Blocking, QhcyDafieqjyMeorrvxb77/03/2025 2:46 PM [facility] Comment:Anti-acetylcholine receptor blocking antibody test is used as an aid in diagnosis of myasthenia gravis. A negative result cannot exclude myasthenia gravis. Clinical correlation is required.Acetylcholine Receptor Blocking<13<21 % Bpwohrlsuy41/03/2025 2:46 PM [facility] LABSpecimen (Source) Anatomical Location / LateralityCollection Method / VolumeCollection Time Received TimeBloodBLOOD SPECIMEN / UnknownVenipuncture / Futvbqm2609/20/2025 10:11 AM EDT1 10:11 AM EDT Narrative Authorizing ProviderResult TypeResult StatusDevobilly Loza MDLABORATORYFinal Result Performing OrganizationAddressCity/State/ZIP CodePhone Number [facility] [place] [facility] [address] * ACETYLCHOLINE REC BINDING AB (09/20/2025 10:11 AM EDT)ComponentValueRef Range Test MethodAnalysis TimePerformed AtPathologist SignatureAcetylcholine, Binding, RagtUtrpdwabVkvhuufu90/29/2025 3:17 PM [facility] Comment:Anti-acetylcholine receptor binding antibody test is used as an aid in diagnosis of myasthenia gravis. A negative result cannot exclude myasthenia gravis. Clinical correlation is required.Acetylcholine Receptor Binding<0.02 <0.21 nmol/L1 3:17 PM [facility] LABSpecimen (Source) Anatomical Location / LateralityCollection Method / VolumeCollection Time Received TimeBloodBLOOD SPECIMEN / UnknownVenipuncture / Lmdetrc9809/20/2025 10:11 AM EDT1 10:11 AM EDT Narrative Authorizing ProviderResult TypeResult StatusDeroe Loza MDLABORATORYFinal Result Performing OrganizationAddressCity/State/ZIP CodePhone Number [facility] [address] [place] [address], [place] * THYROID STIMULATING IMMUNOGLOBULIN BLOOD (09/20/2025 10:11 AM EDT)Component ValueRef RangeTest MethodAnalysis TimePerformed AtPathologist SignatureTSI SdohgfccktgVbozjqwxImnthqtj12/29/2025 11:55 AM [facility] LABTSI <0.10<0.55 IU/L1 11:55 AM [facility] LABComment:Thyroid Stimulating Immunoglobulin test is used as an aid in diagnosis of autoimmune hyperthyroidism especially in patients with Grave's orbitopathy and dermopathy. Low positive TSH receptor stimulating antibody levels may occasionally be found in patients with autoimmune hypothyroidism. Clinical co rrelation is required.Specimen (Source)Anatomical Location / Laterality Collection Method / VolumeCollection TimeReceived TimeBloodBLOOD SPECIMEN / UnknownVenipuncture / Yjnssnh0109/20/2025 10:11 AM EDT1 10:11 AM EDT Narrative Authorizing ProviderResult TypeResult StatusDeroe BROWNORATORYFinal Result Performing OrganizationAddressCity/State/ZIP CodePhone Number [facility] [address] [place] [address], * THYROID STIMULATING HORMONE (09/20/2025 10:11 AM EDT)ComponentValueRef Range Test MethodAnalysis TimePerformed AtPathologist SignatureTSH1.0600.270 - 4.200 mIU/L1 7:37 PM [facility] LABComment: If the patient is , TSH reference range varies by gestational period: First Trimester (weeks 9-12): 0.180-2.990 mIU/L Second Trimester: 0.110-3.980 mIU/L Third Trimester: 0.480-4.710 mIU/L Reece Hale et al. A Practical Approach for the Verifications and Determination of Site- and Trimester-Specific Reference Intervals for Thyroid Function tests in . Thyroid, 2019:29:3:412-420.Ace Dunn, et al. 2017 Guidelines of the [place] Thyroid Association for the Diagnosis and Management of Thyroid Disease during and the . Thyroid, 2017:27:3:315-389. Specimen (Source)Anatomical Location / LateralityCollection Method / Volume Collection TimeReceived TimeBloodBLOOD SPECIMEN / UnknownVenipuncture / Unknown 09/20/2025 10:11 AM EDT1 10:11 AM EDT Narrative Authorizing ProviderResult TypeResult StatusDeroe Loza MDLABORATORYFinal Result Performing OrganizationAddressCity/State/ZIP CodePhone Number [facility] [address] [place] [address], * T4/THYROXINE (09/20/2025 10:11 AM EDT)ComponentValueRef RangeTest Method Analysis TimePerformed AtPathologist MkbsngkcuF92.15.5 - 10.2 ug/dL09/20/2025 7:37 PM [facility] LABSpecimen (Source)Anatomical Location / LateralityCollection Method / VolumeCollection TimeReceived TimeBloodBLOOD SPECIMEN / UnknownVenipuncture / Xevwdim0409/20/2025 10:11 AM EDT1 10:11 AM EDT Narrative Authorizing ProviderResult TypeResult StatusDereo Loza MDLABORATORYFinal Result Performing OrganizationAddressCity/State/ZIP CodePhone Number [facility] [address] [place] [address], * T4 FREE/FREE THYROXINE (09/20/2025 10:11 AM EDT)ComponentValueRef RangeTest MethodAnalysis TimePerformed AtPathologist SignatureFree T41.00.9 - 1.7 ng/dL 09/20/2025 7:37 PM [facility]TCRIV[facility] MAIN LABSpecimen (Source)Anatomical Location / LateralityCollection Method / VolumeCollection TimeReceived Time BloodBLOOD SPECIMEN / UnknownVenipuncture / Xuukkvj9309/20/2025 10:11 AM EDT 09/20/2025 10:11 AM EDT Narrative Authorizing ProviderResult TypeResult StatusSolo Loza MDLABORATORYFinal Result Performing OrganizationAddressCity/State/ZIP CodePhone Number [facility] [address] [place] [address], * T3, FREE (09/20/2025 10:11 AM EDT)ComponentValueRef RangeTest MethodAnalysis TimePerformed AtPathologist SignatureFree T32.72.3 - 4.1 pg/mL09/20/2025 7:37 PM EDOUR [facility] LABSpecimen (Source)Anatomical Location / LateralityCollection Method / VolumeCollection TimeReceived TimeBloodBLOOD SPECIMEN / UnknownVenipuncture / Dvmlifv3209/20/2025 10:11 AM EDT1 10:11 AM EDT Narrative Authorizing ProviderResult TypeResult StatusSolo Loza MDLABORATORYFinal Result Performing OrganizationAddressty/State/ZIP CodePhone Number [facility] [address] [place] [address], * THYROID PEROXIDASE ANTIBODY (09/20/2025 10:11 AM EDT)ComponentValueRef Range Test MethodAnalysis TimePerformed AtPathologist SignatureTHYROID PEROXIDASE ANTIBODY4.3<5.6 IU/mL09/20/2025 7:19 PM EDOUR LADY OF [facility]CY [facility] MAIN LABComment: Thyroid Peroxidase Antibody test is used as an aid in diagnosis of autoimmune thyroid disease. Clinical correlation is required.Specimen (Source)Anatomical Location / LateralityCollection Method / VolumeCollection TimeReceived Time BloodBLOOD SPECIMEN / UnknownVenipuncture / Pohwlff2909/20/2025 10:11 AM EDT 09/20/2025 10:11 AM EDT Narrative Authorizing ProviderResult TypeResult StatusDecalin Loza MDLABORATORYFinal Result Performing OrganizationAddressCity/State/ZIP CodePhone Number [facility] [address] * ACETYLCHOLINE RECEPTOR MODULATING ANTIBODY (09/20/2025 10:11 AM EDT)Component ValueRef RangeTest MethodAnalysis TimePerformed AtPathologist Signature Acetylcholine Recept/Modulating0<=45 %09/23/2025 1:57 PM [facility]TAS[facility]RA [facility] Comment: INTERPRETIVE INFORMATION: Acetylcholine Modulating Ab [...] developed and its performance characteristics determined by [facility]. It has not been cleared or approved by the US Food and Drug Administration. This test was performed in a CLIA certified laboratory and is intended for clinical purposes. Performed By: [facility] [address] [place] [address] Mat Tester: Walter Mayorga MD, PhD CLIA Number: [id number] Specimen (Source)Anatomical Location / LateralityCollection Method / Volume Collection TimeReceived TimeBloodBLOOD SPECIMEN / UnknownVenipuncture / Unknown 09/20/2025 10:11 AM EDT1 10:11 AM EDT Narrative Authorizing ProviderResult TypeResult StatusSolo BROWNORATORYFinal Result Performing OrganizationAddressCity/State/ZIP CodePhone Number [facility] [address] [place] [address] * VISUAL FIELD 24-2 OU (BOTH EYES) (09/06/2025 9:42 AM EDT)Anatomical Region LateralityModalityOther Narrative 09/06/2025 10:12 AM EDT Date of Procedure 09/06/2025 [place] Information Equipment Mechanic Specialist: Ladan Sharma Start time: 9:41 AM Reliability Right Eye Poor. Left Eye Good. Interpretation Right Eye Non-specific defect. Left Eye Non-specific defect. Interval Change Right Eye Initial Left Eye Initial Authorizing ProviderResult TypeResult StatusDevobilly Loza MDOPHTHALMOLOGYFinal Result from Last 3 Months Insurance Care Teams Team MemberRelationshipSpecialtyStart DateEnd Date Rohit Herron PA-C [address] [facility] [address] [place] [address] PCP - GeneralFamily Medicine03/30/25
--- OUTSIDE RECORDS SUMMARY | 2025-10-19 07:57 | XMS_ITS | Clinical Summary ---
Author Organization [facility] Address [address] [place] [address] Care Team Providers Care Cap Parts Cutter Name Role Phone Beronica Forte IOS SOFTWARE ENGINEER Unavailable [phone] Allergies Active AllergyReactionsCriticalityNoted DateCommentsDextromethorphan-Guaifenesin 04/10/2023 Loopy Medications MedicationSigDispense QuantityRefillsLast FilledStart DateEnd DateStatus hydrOXYzine HCl (Atarax) 10 MG tablet Take 50 mg by mouth 3 (three) times a day as muzjgs2607/21/2009ctive metFORMIN XR (Glucophage-XR) 500 MG 24 hr [...] mouth5Active triamcinolone (Kenalog) 0.1 % cream 5Active letrozole (Femara) 2.5 MG chemo tablet Indications:Female infertility,Abnormal uterine bleeding (AUB),Irregular periods Take 1 tablet (2.5 mg total) by mouth Daily for 5 days. 5 tablet 515Active ibuprofen 800 MG tablet Take 600 mg [...] DAILY NEEDED FOR FACIAL PAIN MAY CAUSE GEFJYVQFBF07/06/2025Discontinued rizatriptan (Maxalt) 10 MG tablet TAKE 1 TABLET BY MOUTH ONCE DAILY A 1 TIME DOSE, IF NEEDED FOR MIGRAINE. MAY REPEAT IN 2 HOURS IF UNRESOLVED. DO NOT EXCEED 30MG IN 24 HOURS.09/29/2025 Discontinued Active Problems ProblemNoted DateDiagnosed KkyuDwkcaqhf35/24/4079Yzopnugvo46/24/2024Saddle ponejkimti60/24/2024Chronic bilateral low back pain without vvpwhoag15/24/2024 Occipital neuralgia of right side07/01/2024Neurologic gait sbuwbcvdlaa78/05/2024 Jjgvshh8004/28/2024 Encounters DateTypeDepartmentCare VutiEoiyugcybcy18/21/2025Orders Only [facility] [place] [address] Cindy Biswas MA 10/04/2025 10:30 AM ESTConsult [facility] [address] [address] [place] [address] Jeremy Real DO Pre-op evaluation; Pelvic pain in fizgsp2110/04/2025Telephone [facility] [address] [place] [phone] Bambi Hernandez LPN 10/04/2025amboo flowsheet [facility] [address] [place] [phone] Jeremy Real DO 10/03/20251373Gyfgiz11/06/2025 11:00 AM ESTProcedure Visit [facility] [address] [place] [phone] Barb Luke PA Well woman exam with routine gynecological exam; History of ovarian cyst; Pain in female genitalia on intercourse; Chronic right-sided low back pain, unspecified whether sciatica present 09/29/2025linisync Result Encounter [facility] Unsolicited Barb Luke PA 09/29/2025amb flowsheet [facility] [address] [place] [phone] Barb Luke PA 09/27/2025Travelfrom Last 3 Months Family History Medical HistoryRelationNameCommentsDiabetesBrotherFrankieAlcohol [...] have six or more drinks on one occasion?Never4 CommentsNoSex and Gender InformationValueDate RecordedSex Assigned at Wavsdb0707/21/2023 6:05 PM EDTLegal XjvBzsiei62/04/2023 12:16 PM EDTGender GjlvxgopJxmzzz07/28/2023 6:05 PM EDTSexual MwfhnpxpcdeRtwctcdn81/28/2023 6:05 PM EDT Last Filed Vital Signs Vital SignReadingTime TakenCommentsBlood Misdaxrn891/7410/04/2025 10:43 AM EST Ycsqk943809/13/2024 1:39 PM EDTTemperature--Respiratory Rate--Oxygen Vxhisxmjsx09% 04/29/2024 10:03 AM EDTInhaled Oxygen Concentration--Lztaor589 kg (257 lb) 10/04/2025 10:43 AM GMYXysmmv990.3 cm (5' 9 )10/04/2025 10:43 AM ESTBody Mass Index37.9510/04/2025 10:43 AM EST Plan of Treatment DateTypeDepartmentCare Team (Latest Contact Info)Tkposndseeq68/31/2026 9:30 AM EDTOffice Visit [facility] [address] [place] [address] Regina Frost MD [address] [place] [address] Health MaintenanceDue DateLast DoneCommentsCOVID-19 Vaccine ( season) 2025Influenza Vaccine (#1)2025Pap Smear, 07/22/2022, 2Cervical Cancer Vzglowqxw47/28/2028HPV/Getktg0908/21/2028 3Pneumococcal Vaccine: Pediatrics (0 to 5 Years) and At-Risk Patients (6 to 64 Years)Aged OutNo longer eligible based on patient's age to complete this topic Procedures Procedure NamePriorityDate/TimeAssociated DiagnosisCommentsIGP,APTIMA HPV,AGE FVLZIvrsgtz34/04/2025 10:52 AM EST HPV/PAP COTEST, VMJDVAMMXkbvmwv12/06/2025 12:00 AM ESTPAP BSQRKKdbdqge64/26/2024 12:00 AM EDTTHINPREP PAP AND HPV MRNA E6/E7 W/RFL HPV 16,18/48Pdxaquy65/28/2023 10:44 AM EDT Well woman exam with routine gynecological exam from Last 3 Months or Most Recently Relevant to Health Maintenance Results * IGP,APTIMA HPV,AGE GDLN (09/29/2025 10:52 AM EST)ComponentValueRef RangeTest MethodAnalysis TimePerformed AtPathologist SignatureAGE GDLN ACOG TESTINGNote. TBHComment: ?? TESTS ? RESULT ??FLAG ??UNITS ?REF RANGE ??LAB ?? Clinician Provided Cytology Information ?? Source.............Cervix;Endocervix ?? No. of containers..01 ThinPrep Vial Age Algo ACOG Carmen... ??30-65 ? 01 ?FLAG LEGEND: ?L-Low Normal,H-High Normal,LL-Alert Low,HH-Alert High <-Panic Low,>-Panic High,A-Abnormal,AA-Critical Abnormal Performed at: 01 =G ?[facility] ?? [address] [place] ??[address] ?? Kiesha Monroe MD, IGP, APTIMA HPV, RFX 16/18,45Note.TBHComment: ?? TESTS ? RESULT ??FLAG ??UNITS ?REF RANGE ??LAB DIAGNOSIS: ?02 ?? NEGATIVE FOR INTRAEPITHELIAL LESION OR MALIGNANCY. Specimen adequacy: ?02 ?? Satisfactory for evaluation. ??Endocervical and/or squamous metaplastic ?? cells (endocervical component) are present. Performed by: ? 02 ?? Osiel Hull Treater (ASCP) . ? 02 Note: ? Note ?02 ?? The Pap smear is a screening test designed to aid in the ?? detection of premalignant and malignant conditions of the ?? uterine cervix. ??It is not a diagnostic procedure and ?? should not be used as the sole means of detecting cervical ?? cancer. ??Both false-positive and false-negative reports do ?? occur. Test Methodology: ? Note ?02 ?? This liquid based ThinPrep(R) pap test was interpreted ?? using the Centric Software(R) GenSite Organic(TM) Cervical Algorithm whole ?? slide imaging system. HPV Genotype Reflex ?? Note ?02 ?? Criteria not met, HPV Genotype not performed. ?FLAG LEGEND: ?L-Low Normal,H-High Normal,LL-Alert Low,HH-Alert High <-Panic Low,>-Panic High,A-Abnormal,AA-Critical Abnormal Performed at: 02 WB ?[facility] ?? [address] [place], [place] ??[address] ?? Kiesha Monroe MD, HPV APTIMANegativeNegativeTBHComment: This nucleic acid amplification test detects fourteen high- risk HPV types (16,18,31,33,35,39,45,51,52,56,58,59,66,68) without differentiation. Performed at: ??=G - [facility] [place] [address] [place], [place] ??[phone] Glass Or Mirror Inspector: Kiesha Monroe MD, Phone: ??[phone] Performed at: ??WB - [facility] [address] [place], [place] ??[id number] Glass Or Mirror Inspector: Kiesha Monroe MD, Phone: ??[phone] Specimen (Source)Anatomical Location / LateralityCollection Method / Volume Collection TimeReceived Time09/29/2025 10:52 AM EST09/29/2025 2:52 PM EST Narrative [facility] - 10/03/2025 2:08 PM EST BRUSH-SPATULA CERVIX ENDOCERVIX Authorizing ProviderResult TypeResult StatusAmy Marly PALAB BLOOD ORDERABLES Final ResultPerforming OrganizationAddressCity/State/ZIP CodePhone Number [facility]IN[facility] TBH * HPV/PAP COTEST, EXTERNAL (09/29/2025 12:00 AM EST) Narrative Authorizing ProviderResult TypeResult StatusAmy Wiley PALAB CYTOLOGY ORDERABLES Final ResultPerforming OrganizationAddressCity/State/ZIP CodePhone Number EXTERNAL LAB * Pap Smear (08/19/2024 12:00 AM EDT)Specimen (Source)Anatomical Location / LateralityCollection Method / VolumeCollection TimeReceived TimeSwabCervical swab / Unknown Narrative Authorizing ProviderResult TypeResult StatusFazio Nurse [facility] ObLAB CYTOLOGY ORDERABLESFinal ResultPerforming OrganizationAddressCity/State/ZIP CodePhone Number EXTERNAL LAB * THINPREP PAP AND HPV MRNA E6/E7 W/RFL HPV 16,18/45 (08/21/2023 10:44 AM EDT) Narrative Authorizing ProviderResult TypeResult StatusCorey Addie DOLAB BLOOD ORDERABLES Final ResultPerforming OrganizationAddressCity/State/ZIP CodePhone Number EXTERNAL LAB from Last 3 Months or Most Recently Relevant to Health Maintenance Insurance * Guarantor: Eloisa Natarajanount TypeRelation to PatientDate of BirthPhone Billing AddressPersonal/EhvsitSoaj[address] [address] Care Teams Team MemberRelationshipSpecialtyStart DateEnd Date Beronica Forte NP MARLENI Carmona Commercial11/24/24
--- OUTSIDE RECORDS SUMMARY | 2025-10-19 07:57 | XMS_ITS | Encounter Summary ---
Author Organization [facility] Address [address] [place] [address] Care Team Providers Care Vacuum Conditioner Operator Name Role Phone Rohit Herron PA-C Primary Care Provider [phone] Reason for Visit * ReasonCommentsMed Refill Encounter Details DateTypeDepartmentCare Team (Latest Contact Info)Xghpucpswyu49/16/2025Refill [facility] [address] [place] [phone] Rohit Herron PA-C [address] [facility] [address] [place] [address] Hemicrania continua Social History Tobacco UseTypesPacks/DayYears UsedDateSmoking Tobacco: FormerCigarettes0.516.9 Started: 11/24/2008Smokeless Tobacco: NeverAlcohol UseStandard Drinks/Week CommentsNot [...] or relatives?Never 05/31/2025How often do you attend shinto or protestant services?Never05/31/2025Do you belong to any clubs or organizations such as shinto groups, unions, fraCoupad or athletic groups, or school groups?No05/31/2025How often do you attend meetings of the clubs or organizations you belong to?Never05/31/2025re you , , , , never , or living with a partner?Eqargty1505/31/2025UDIT-CAnswerDate RecordedQ1: How often do you have a [...] care, and heating?Somewhat hard05/31/2025PHQ-2AnswerDate RecordedPatient Health Questionnaire-2 Lkmjw558Finmount[facility] hospital [place] of Occupational Health - Occupational Stress QuestionnaireAnswerDate [...] CommentsNoSex and Gender InformationValueDate RecordedSex Assigned at Atqskj9510/27/2024 6:27 AM ESTLegal FdzJtfssn74/30/2022 12:34 AM EDTGender OwzdiffbNawbmc01/08/2025 9:50 AM EDTSexual OrientationHeterosexual or Straight 10/27/2024 6:27 AM ESTdocumented as of this encounter Plan of Treatment Not on file documented as of this encounter Visit Diagnoses Diagnosis Hemicrania continua documented in this encounter Care Teams Team MemberRelationshipSpecialtyStart DateEnd Date Rohit Herron PA-C [address] [place] [address] PCP - GeneralFamily Dnfmnwmc66/8/24documented as of this encounter
--- OUTSIDE RECORDS SUMMARY | 2025-10-19 07:57 | XMS_ITS | Encounter Summary ---
Author Organization [facility] Address [id number] [address] [place] [address] Care Team Providers Care Eeg Technologist Name Role Phone No Pcp, No Pcp Primary Care Provider Unavailabl e Encounter Details DateTypeDepartmentCare Team (Latest Contact Info)Xcvyptfgbcg09/20/2025Telephone [facility] [address] [place] [phone] Earlene Oneill CMA Social History Tobacco UseTypesPacks/DayYears UsedDateSmoking Tobacco: Every RqxIxxcnughbs64.8 Started: 12/25/2016Smokeless Tobacco: NeverAlcohol UseStandard Drinks/Week CommentsYes0 (1 standard drink = 0.6 oz pure alcohol)rarePHQ-2AnswerDate RecordedTotal Nodts211/21/2025ChildcareAnswerDate RecordedChildcareUnknown 05/04/2019EmploymentAnswerDate EgslatwyUkurxsgtciFwuwlpw80/11/2019Purpose - Life AnswerDate RecordedPurpose and direction in piohThfpxzr03/11/2021 CommentsNoSex and Gender InformationValueDate RecordedSex Assigned at Dophgd7007/12/2022 7:31 PM EDTLegal VfgQeerib98/04/2015 9:30 PM EDTGender Identity Gmpblg7107/12/2022 7:31 PM EDTSexual ZushokbbdblZdkjqcmo77/19/2022 7:31 PM EDT documented as of this encounter Miscellaneous Notes * Psychiatric Progress Note - Earlene Oneill CMA - 10/13/2025 4:29 PM EST Left message for patient to call back to schedule follow-up appointment. documented in this encounter Plan of Treatment Not on file documented as of this encounter Visit Diagnoses Not on filedocumented in this encounter Additional Health Concerns AssessmentNoted TimePHQ-9 Depression Total Score: 9005/14/2025 7:00 AM EDT documented as of this encounter Care Teams Team MemberRelationshipSpecialtyStart DateEnd Date No Pcp, [place] [address] PCP - GeneralFamily Medicine05/31/24documented as of this encounter
--- OUTSIDE RECORDS SUMMARY | 2025-10-19 07:57 | XMS_ITS | Clinical Summary ---
Author Organization [facility] Address [id number] [place] [address] Care Team Providers Care Furnace Builder Name Role Phone No Pcp, No Pcp [...] tablet 5Active Active Problems ProblemNoted DateDiagnosed DateDepressive gifdvjxo34/20/2019Endometriosis 06/04/2016Exposure to sexually transmitted disease (STD)06/04/2016 Overview (08/24/2018): problem replaced by 2018 ICD 02 September Update Papanicolaou smear for cervical cancer qioayxuyr20/12/2016 Encounters DateTypeDepartmentCare UcttSkzsvjzjaop22/20/2025Telephone [facility] [address] [place] [phone] Earlene Oneill CMA from Last 3 Months Family History Medical HistoryRelationNameCommentsHyperlipidemiaFatherHypertensionFatherRheum arthritisMaternal GrandmotherOvarian cancerMaternal great-grandmother HyperlipidemiaMotherHypertensionMotherRheum arthritisMotherCervical cancer Paternal GrandmotherRelationNameStatusCommentsFatherAliveMaternal Grandmother AliveMaternal great-grandmotherAliveMotherAlivePaternal Grandmother Social History Tobacco UseTypesPacks/DayYears UsedDateSmoking Tobacco: Every IaySwbcrxsqmb86.8 Started: 12/25/2016Smokeless Tobacco: Never Tobacco Cessation:Counseling Given: Yes Alcohol UseStandard Drinks/WeekCommentsYes0 (1 standard drink = 0.6 oz pure alcohol)rarePHQ-2AnswerDate RecordedTotal Tuddm035/21/2025ChildcareAnswerDate CopknlwhRtuyemctiQurdozy83/11/2019EmploymentAnswerDate RecordedEmploymentUnknown 05/04/2019Purpose - LifeAnswerDate RecordedPurpose and direction in lifeUnknown 1CommentsNoSex and Gender InformationValueDate RecordedSex Assigned at ZbhzsCgcceb15/19/2022 7:31 PM EDTLegal DuaVtinbu76/04/2015 9:30 PM EDTGender TtmmwpgmVjcpuo10/19/2022 7:31 PM EDTSexual OrientationStraight 07/12/2022 7:31 PM EDT Last Filed Vital Signs Vital SignReadingTime TakenCommentsBlood Gwegabgv874/7009 3:23 PM EDT Lmbyb124508/12/2022 3:23 PM ETNBrecterreys52.7 ??C (98.1 ??F)08/12/2022 1:14 PM EDTRespiratory Wvsd478908/12/2022 3:23 PM EDTOxygen Zlfvoalonr359%08/12/2022 3:23 PM EDTInhaled Oxygen Concentration--Hjvnfn463.1 kg (256 lb)07/23/2022 10:29 AM YAUDihylq669.3 cm (5' 9 )07/23/2022 10:29 AM EDTBody Mass Index37.808/ 10:29 AM EDT Plan of Treatment Health MaintenanceDue DateLast DoneCommentsDTaP,Tdap and Td Vaccines (6 - Tdap) , 03/30/1991, 09/11/1990, Additional history existsTobacco Prfnxbyth41/29/2001Adult BMI Dptyvichx66/29/2007COVID-19 Vaccine ( season)/, 02/17/2021Influenza Noyxxik53/12/2012, 08/06/2012, 08/13/2011, Additional history existsDepression Ajyzvdmzj11/21/2026 05/14/2025Pap Smear, 07/01/2022, 07/01/2022 Medical Devices Not on file Procedures Procedure NamePriorityDate/TimeAssociated DiagnosisCommentsHIGH RISK HPV W/WILLIAM Hhfqhxx2507/01/2022 5:01 AM EDT from Last 3 Months or Most Recently Relevant to Health Maintenance Results * High risk HPV w/william (07/01/2022 5:01 AM EDT)ComponentValueRef RangeTest MethodAnalysis TimePerformed AtPathologist SignatureHpv specimen typeThinPrep 07/03/2022 5:02 AM EDTSUNQUESTHpv 16NegativeNegative^Jhtkpjqa20/11/2022 1:[address] [facility] 18NegativeNegative^Yfygwbqb06/11/2022 1:[address] [facility] LABOther high risk hpvNegative Negative^Pxpsniso84/11/2022 1:[address] LABComment: HPV types 31,33,35,39,45,52,56,58,59,66 and 68 DNA were undetectable. Specimen (Source)Anatomical Location / LateralityCollection Method / Volume Collection TimeReceived IihwOOGOL36/08/2022 5:01 AM EDT07/02/2022 5:01 AM EDT Narrative Authorizing ProviderResult TypeResult StatusCochristelle BROWN BLOOD ORDERABLESFinal ResultPerforming OrganizationAddressCity/State/ZIP CodePhone Number [facility] [address] [place] [address] from Last 3 Months or Most Recently Relevant to Health Maintenance Insurance * Guarantor: Eloisa Natarajan TypeRelation to PatientDate of PhoneBilling AddressThird Constitution Party ClfzxcyvlBmib1990 [address] [place] [address] Advance Directives * Full Code (Latest Code Status on File) Date ActivatedDate InactivatedComments07/13/2019 12:51 AM07/13/2019 7:56 PM Care Teams Team MemberRelationshipSpecialtyStart DateEnd Date No Pcp, [place] [address] PCP - GeneralFamily Medicine05/31/24
--- OUTSIDE RECORDS SUMMARY | 2025-10-19 07:57 | XMS_ITS | Clinical Summary ---
Author Organization [facility] Address [address] [place] [address] Care Team Providers Care Saw Straightener Name Role Phone Rohit Herron PA-C Primary Care Provider [phone] Allergies Active AllergyReactionsCriticalityNoted DateCommentsDextromethorphan-Guaifenesin Ejhdogp8504/10/2023 Medications MedicationSigDispense QuantityRefillsLast FilledStart DateEnd DateStatus carBAMazepine [...] by mouth two times daily. 60 tablet ctive Additional Information Patient not taking.Reported on 07/14/2025 rizatriptan (Maxalt) 10 mg tablet Indications:Migraine without status migrainosus, not intractable, unspecified migraine typeTake 1 tablet (10 mg) by mouth 1 (one) time if needed for migraine. May repeat in 2 hours if unresolved. Do not exceed 30 mg in 24 hours. 9 tablet ctive metFORMIN (Glucophage) 500 mg tablet 08/11/2023ctive clindamycin (Cleocin T) 1 % lotion APPLY THIN LAYER TO AFFECTED AREA ONCE DAILY NEEDED FOR IRWSXN4106/06/2024 Active cyclobenzaprine (Flexeril) 5 mg tablet Take 1 tablet 3 times a day by oral route as needed for 3 days.Active azelastine (Astelin) 137 mcg (0.1 %) nasal spray Indications:Allergic rhinitis, unspecified seasonality, unspecified trigger Administer 1 spray into each nostril two times daily. Use in each nostril as directed 30 mL 505006/02/2026ctive cetirizine (ZyrTEC) 10 mg tablet Indications:Allergic rhinitis, [...] by mouth at bedtime. 30 capsule ctive escitalopram (Lexapro) 10 mg tablet Indications:AnxietyTake 1 tablet (10 mg) by mouth in the morning. 90 tablet ctive triamcinolone (Kenalog) 0.1 % cream Indications:RashApply to affected area 2 times daily as needed. Avoid face and groin. 80 g ctive hydrOXYzine HCL (Atarax) 25 mg tablet Indications:AnxietyTake 1 tablet by mouth in the evening 90 tablet 09/28/2025tive omeprazole (PriLOSEC) [address] capsule Indications:Hemicrania continuaTAKE 1 CAPSULE BY MOUTH IN THE MORNING BEFORE BREAKFAST DO NOT CRUSH OR CHEW 90 capsule 5Active hydrOXYzine HCL (Atarax) 25 mg tablet Indications:AnxietyTake 1 tablet (25 mg) by mouth in the evening. 90 tablet Discontinued omeprazole (PriLOSEC) [address] capsule Indications:Hemicrania continuaTAKE 1 CAPSULE BY MOUTH ONCE DAILY IN THE MORNING BEFORE BREAKFAST DO NOT CRUSH OR CHEW 90 capsule Discontinued Active Problems ProblemNoted DateDiagnosed DateNight sbjwzpb0807/17/2025Vitamin D deficiency 07/17/2025Hemicrania uwvvlwsd83/24/4963Gjcanwxdfbezrw67/24/2025llergic rhinitis 07/17/2025ADHD112/29/2023Infertility, ewwxpu1610/28/2024Trigeminal neuralgia of right side of face09/01/2024 Overview (10/28/2024): Right side only, primarily lower face, numbness, dull ache, sometimes extreme pain in teeth and burning. Chronic bilateral low back pain without hqrkrrup07/24/6956Sndaaenh54/24/2024 Njuuxgcqd15/24/2024Saddle lnhecbznhq80/24/2024Occipital neuralgia of right side 07/01/20244709Cwkywnj02/05/2024Neurologic gait /05/2024Lipoma of thigh 02/01/2022igarette xzfiwi4102/01/2022besity with body mass index 30 or greater 02/01/2022Ventricular premature beats02/27/2021remature atrial contraction 02/27/2021Intermittent hcsoogkggblf82/06/2021High-density lipoprotein deficiency 02/27/2021Generalized anxiety ymvizsqk17/06/2021Mass of soft tissue of left lower qgznzbuoi81/06/2021epressive nyvxmxeb69/20/2019Papanicolaou smear for cervical cancer vkljfyjyb28/12/2016Exposure to sexually transmitted disease (STD)06/04/2016 Overview (04/17/2023): problem replaced by 2018 ICD 02 September Update Bdqisqrdlpecn04/12/2016 Encounters DateTypeDepartmentCare NxysZgcezugmpgk01/16/2025Refill [facility] [address] [place] [phone] Rohit Herron PA-C Hemicrania hmfjkylu52/05/2025Refill [facility] [address] [place] [phone] Rohit Herron PA-C Rjzlylv5407/21/2025Orders Only [facility] [address] [address] Rohit Herron PA-C Rash (Primary Dx)07/20/2025Orders Only [facility] [address] [phone] Rohit Herron PA-C Anxietyfrom Last 3 Months Family History Medical HistoryRelationNameCommentsAlcohol abuseFatherFrankCancerFatherFrank Anxiety disorderMotherLaurieArthritisMotherLaurieDepressionMotherLaurieArthritis Mother's BrotherHoraceArthritisMother's Sister 1LizArthritisMother's Sister 2 VirginiaAlcohol abuseSisterMandyAnxiety disorderSisterMandyRelationNameStatus CommentsFatherFrankMotherLaurieMother's BrotherHoraceMother's Sister 1Liz Mother's Sister 2VirginiaSisterMandy Social History Tobacco UseTypesPacks/DayYears UsedDateSmoking Tobacco: FormerCigarettes0.516.9 Started: 11/24/2008Smokeless Tobacco: Never Tobacco Cessation:Counseling Given: [...] friends or relatives?Never05/31/2025How often do you attend tenriism or worship services?Never05/31/2025Do you belong to any clubs or organizations such as tenriism groups, unions, fraAlliance Health Networks or athletic groups, or school groups?No 05/31/2025How often do you attend meetings of the clubs or organizations you belong to?Never05/31/2025re you , , , , never , or living with a partner?Yfocfnb1705/31/2025UDIT-CAnswerDate RecordedQ1: How often do you have a [...] care, and heating?Somewhat hard05/31/2025PHQ-2AnswerDate RecordedPatient Health Questionnaire-2 Ddnej970Fin[facility] [place] of Occupational Health - Occupational Stress QuestionnaireAnswerDate [...] 05/31/2025CommentsNoSex and Gender InformationValueDate RecordedSex Assigned at QjvctNvwkfo06/04/2024 6:27 AM ESTLegal VkcOgsmhr25/30/2022 12:34 AM EDTGender NhzzsfejJaeyns07/08/2025 9:50 AM EDTSexual OrientationHeterosexual or Fzzlscdv15/04/2024 6:27 AM EST Last Filed Vital Signs Vital SignReadingTime TakenCommentsBlood Uerlurlf723/8707/14/2025 8:49 AM EDT Doxoc122107/14/2025 8:49 AM UPBCcakdstxgpa54.9 ??C (98.5 ??F)09/26/2024 6:54 AM ESTRespiratory Rlmq172311/26/2023 7:40 AM ESTOxygen Tsiorfdhbd967%07/14/2025 8:49 AM EDTInhaled Oxygen Concentration--Czwnjv647 kg (252 lb)07/14/2025 8:49 AM EDT Mhwomf070.3 cm (5' 9 )07/14/2025 8:49 AM EDTBody Mass Index37.21007/14/2025 8:49 AM EDT Plan of Treatment Health MaintenanceDue DateLast DoneCommentsVaricella Vaccines (1 of 2 - 13+ 2- dose series)2002Hepatitis B Vaccines (1 of 3 - 19+ 3-dose series) 2008dult Rtpkwhh3410/22/2011HPV Vaccines (1 - 3-dose SCDM series)2016 HPV/Msvdeq8010/22/2019COVID-19 Vaccine ( - season)2025Influenza Vaccine (#1)2025Depression Iuhykvtiw58/21/494456/ervical Cancer Aqwiftjyp38/26/2027Pap Smear08/19/687774/, 07/22/2022Zoster Vaccines (1 of 2)2039HIB VaccinesAged OutNo [...] on patient's age to complete this topic Insurance * Guarantor: Eloisa NATARAJANAccoshy TypeRelation to PatientDate of BirthPhone Billing AddressPersonal/OwbiqsIugs1990 [address] [address] Care Teams Team MemberRelationshipSpecialtyStart DateEnd Date Rohit Herron PA-C [address] [facility] [address] [place] [address] [facility] - [facility] Yfsrfijn13/8/24
--- OUTSIDE RECORDS SUMMARY | 2025-10-19 07:57 | XMS_ITS | Encounter Summary ---
Author Organization [facility] Address [address] [place] [address] Care Team Providers Care Retail Specialist Name Role Phone AlexBeronica bello DENTAL BILLING SPECIALIST Unavailable [phone] Encounter Details DateTypeDepartmentCare Team (Latest Contact Info)Gtnzfthomwx77/21/2025Orders Only YUN VALLEJO [address] [place] [address] [place] [phone] Cindy Biswas MA Social History Tobacco UseTypesPacks/DayYears UsedDateSmoking Tobacco: FormerCigarettes1.515.9 [...] occasion?Never04/28/2024CommentsNoSex and Gender InformationValueDate RecordedSex Assigned at EyzymEswxyd36/28/2023 6:05 PM EDT Legal EwmSctoya56/04/2023 12:16 PM EDTGender QhvavlqrCobjno29/28/2023 6:05 PM EDTSexual ZxlhynvpfykZwhdpqun88/28/2023 6:05 PM EDTdocumented as of this encounter Plan of Treatment DateTypeDepartmentCare Team (Latest Contact Info)Ubnnseudhdf87/31/2026 9:30 AM EDTOffice Visit [facility] [address] [place] [phone] Regina Frost MD [address] [place] [address] documented as of this encounter Procedures Procedure NamePriorityDate/TimeAssociated DiagnosisCommentsHPV/PAP COTEST, ZMLFUSCQDrzgjzv79/06/2025 12:00 AM ESTdocumented in this encounter Results * HPV/PAP COTEST, EXTERNAL (09/29/2025 12:00 AM EST) Narrative Authorizing ProviderResult TypeResult StatusAmy Marly [facility] ORDERABLES Final ResultPerforming OrganizationAddressCity/State/ZIP CodePhone Number EXTERNAL LAB documented in this encounter Visit Diagnoses Not on filedocumented in this encounter Care Teams Team MemberRelationshipSpecialtyStart DateEnd Date Beronica Forte NP PCP Val Barton11/24/24documented as of this encounter
--- OUTSIDE RECORDS SUMMARY | 2025-10-19 07:58 | XMS_ITS | CCD ---
Author Organization [facility] Care Team Providers Care Ocean Export Agent Name Role Phone SHAMMO, WILLAM Admitting Unavailable SHAMMO, WILLAM Attending Unavailable SHAMMO, WLILAM Primary Care Unavailable Zieber, Ermelinda Consulting Unavailable SHAMMO, WILLAM Consulting Unavailable SHAMMO, WILLAM Admitting Unavailable SHAMMO, WILLAM Attending Unavailable SHAMMO, WILLAM Primary Care Unavailable Zieber, Ermelinda Consulting Unavailable SHAMMO, WILLAM Consulting Unavailable SHAMMO, WILLAM Admitting Unavailable SHAMMO, WILLAM Attending Unavailable SHAMMO, WILLAM Primary Care Unavailable SHAMMO, WILLAM Consulting Unavailable SHAMMO, WILLAM CHRISTIAN Primary Care Physician JANN RO C Referring Unavailable NO PCP, NO PCP Primary Care Unavailable Jann ANP-BC Ro Attending Provider [phone] NON STAFF Primary Care Provider Unavailabl e PETER Forte-C Ro Pickering Attending Provider [phone] NON STAFF Primary Care Unavailable Windnagel, Ro C Referring Unavailable Windnagel, Ro Admitting Unavailable Windnagel, Ro Attending Unavailable Windnagel, Ro C Admitting Unavailable Windnagel, Ro C Attending Unavailable NON STAFF Primary Care Unavailable Unallocated , Ilianas Provider Primary Care Provi jim Unallocated , Ilianas Provider Primary Care Provi jim NONE, XXXX Primary Care Physician Unavailab le Unavailable Primary Care Provider Unavailabl e Timmis, Sudheer H Admitting Unavailable Timmis, Sudheer H Attending Unavailable Timmis, Sudheer H Admitting Unavailable Timmis, Sudheer H Attending Unavailable Unavailable Primary Care Provider Unavailabl e No Pcp, No Pcp Primary Care Provider Unavailabl e Jann KALSOMINER, Ro Pickering Unavailable Rohit Leos PA-C Primary Care Provider No Pcp, No Pcp Primary Care Provider UnavailKEMI Richards Attending Unavailable RO FORTE Referring Unavailable NO PCP, NO PCP Primary Care Unavailable NON STAFF Primary Care Provider UnavailRoxann Whitlock APRN Attending Provider [phone] ACE COKER Attending Unavailable ROHIT LEOS Attending Unavailable JIMMIE ANTOINE Attending Unavailable BOO, ACE Attending Unavailable ACE COKER Attending Unavailable ROHIT LEOS Attending Unavailable ACE COKER Referring Unavailable BOO, ACE Referring Unavailable ROHIT LEOS Attending Unavailable Jann KALSOMINER, Ro Pickering Unavailable ODALIS, MAGGY Referring Unavailable DERIC, ROHIT L Primary Care Unavailable EUGENIE JACOBOD Attending Unavailable GURVINDERDAFransico, MOHJILLIAND Referring Unavailable DERIC, ROHIT L Primary Care Unavailable AVERY GAINES Attending Unavailable ODALIS, MOHAMMAD Referring Unavailable DERIC, ROHIT L Primary Care Unavailable YARON LOZA Attending Unavailable AVERY MAI Referring Unavaila ble DERIC, ROHIT L Primary Care Unavailable ERMELINDA RODRIGUES Attending Unavailable DERIC, ROHIT L Primary Care Unavailable YARON LOZA Referring Unavailable DERIC, ROHIT L Primary Care Unavailable VINCENZO MUKHERJEE Attending Unavailable VINCENZO MUKHERJEE Referring Unavailable VINCENZO MUKHERJEE Referring Unavailable MARII PHILLIPS Attending Unavailable GURVINDERDAEUGENIE BatemanD Attending Unavailable GURVINDERDAMAGGY Bateman Attending Unavailable VINCENZO MUKHERJEE Referring Unavailable GURVINDERDAN, MOHAMMAD Referring Unavailable DERIC, ROHIT L Primary Care Unavailable HAMDAN, MOHAMMAD Referring Unavailable DERIC, ROHIT L Primary Care Unavailable BRUNO FROST Attending Unavailable THIEN SILVA Attending Unavailable THIEN SILVA Referring Unavailable THIEN SILVA Referring Unavailable BARB LUKE Attending Unavailable JEREMY REAL Attending Unavailable BARB LUKE Attending Unavailable Allergies Allergy ClassificationReported Allergen(s)Allergy TypeDate of OnsetReaction(s) Facility (20 sources)Dextromethorphan / guaiFENesin; Translations: [DEXTROMETHORPHAN-GUAIFENESIN]Drug Kpncgyk59-61-9464UyekzxzTFAJ Healthcare Medications Current Medications MedicationDrug Class(es)DatesSig (Normalized)Sig (Original)amoxicillin 875 mg / clavulanate 125 mg oral tablet (6 sources)Penicillin-class AntibacterialStart: 10-01-2024 End: 22-60-4035cedi 1 tablet by mouth in the morningamoxicillin-clavulanate (Augmentin) 875-125 MG tablet Indications: LAD (lymphadenopathy) of left cer vical region Take 1 tablet (875 mg) by mouth in the morning and 1 tablet (875 mg) before bedtime. Do all this for 14 days. 28 tablet 10/01/2024 10/15/2024 Activeazelastine hydrochloride 0.137 mg/actuat metered dose nasal spray (3 sources)Histamine-1 Receptor AntagonistStart: 06-02-2025 End: 09-91-6125eeruhbedfd (Astelin) 0.1 % nasal spray 1 spray in the morning and 1 spray in the evening. 06/02/2025 06/02/2026 Activebaclofen 10 mg oral tablet (20 sources)gamma-Aminobutyric Acid-ergic AgonistStart: 01-06-2025 End: 58-45-9052baeyfxdt 10 mg tablet Indications: Right trigeminal neuralgia Take half-1 tablet twice a day as needed for facial pain, may cause drowsiness 30 tablet 1 01/06/2025 ActiveStart: 09-14-2024 End: 72-29-4935whzi 1 tablet by mouth in the morning, then take 1 tablet by mouth in the evening, then take 1 tablet by mouth at bedtimebaclofen (Lioresal) 5 MG tablet Indications: Occipital neuralgia of right side Take 1 tablet (5 mg) by mouth in the morning and 1 tablet (5 mg) in the evening and 1 tablet (5 mg) before bedtime. 90 tablet 2 09/14/2024 10/13/2024 Discontinued (Therapy completed)Start: 09-13-2024 End: 61-62-0940hcsz 0.5 tablet by mouth in the morning, then take 0.5 tablet by mouth in the evening, then take 0.5 tablet by mouth at bedtimebaclofen (Lioresal) 10 MG tablet Indications: Occipital neuralgia of right side Take 0.5 tablets (5mg) by mouth in the morning and 0.5 tablets (5 mg) in the evening and 0.5 tablets (5 mg) before bedtime. 45 tablet 2 09/13/2024 09/14/2024 Discontinued (Reorder) End: 12-85-2267iego 5 mg by mouth in the morning, then take 5 mg by mouth in the evening, then take 5 mg by mouth at bedtimebaclofen (Lioresal) 10 MG tablet Take 5 mg by mouth in the morning and 5 mg in the evening and 5 mgbefore bedtime. 09/13/2024 Discontinued (Reorder)busPIRone hydrochloride 5 mg oral tablet (1 source)Start: 65-15-1451rrmj 1 tablet by mouth in the morning, then take 1 tablet by mouth in the eveningbusPIRone (BUSPAR) 5 mg tablet Indications: Generalized anxiety disorder Take 1 tablet (5 mg total)by mouth in the morning and 1 tablet (5 mg total) in the evening. 60 tablet 05/14/2025 ActiveStart: 75-75-8940poal 1 tablet by mouth in the morning, then take 1 tablet by mouth in the eveningbusPIRone (BUSPAR) 5 mg tablet Indications: Generalized anxiety disorder Take 1 tablet (5 mg total)by mouth in the morning and 1 tablet (5 mg total) in the evening. 60 tablet 05/14/2025 Szolep92 hr carBAMazepine 300 mg extended release oral capsule (20 sources)Mood StabilizerStart: 09-23-2024 End: 47-01-5580ikdn 1 capsule by mouth in the morning, then take 1 capsule by mouth every twelve hours at bedtimecarBAMazepine ER (Carbatrol) 300 MG 12 hr capsule Indications: Trigeminal neuralgia of right side of face Take 1 capsule (300 mg) by mouth in the morning and 1 capsule (300 mg) before bedtime. Do not crush or chew.. 60 capsule 2 09/23/2024 09/29/2025 DiscontinuedStart: 09-13-2024 End: 80-59-5391znhx 1 tablet by mouth in the morningcarBAMazepine (TEGretol) 200 MG tablet Indications: Trigeminal neuralgia of right side of face (CMS/HCC) Take 1 tablet (200 mg) by mouth in the morning and 1 tablet (200 mg) before bedtime. 60 tablet2 09/13/2024 09/13/2025 Activecephalexin 500 mg oral capsule (7 sources)Cephalosporin Antibacterial End: 17-84-4902ulzdsvzswb (Keflex) 500 MG capsule Take 500 mg by mouth in the morning and 500 mg at noon and 500 mg in the evening and 500 mg before bedtime. 09/17/2024 Discontinued (Therapy completed)cetirizine hydrochloride 10 mg oral tablet (4 sources)Histamine-1 Receptor AntagonistStart: 84-05-2366gjxgkzmcca (ZyrTEC) 10 MG tablet 06/02/2025 Activecholecalciferol 0.01 mg chewable tablet (5 sources)Vitamin DStart: 31-85-4831Ocmrvbvbfrekygu, Vitamin D3, (VITAMIN D-3) 10 mcg (400 unit) chew 04/24/2024 Activeclindamycin 10 mg/ml topical lotion (11 sources)Lincosamide AntibacterialStart: 56-38-6557Szufyvjjuxe Phosphate (CLEOCIN T) 1 % lotion Apply 1 application to affected area as needed. 024 ActiveStart: 02-17-2024 End: 40-79-7425wrpxtwunirj (Cleocin T) 1 % lotion Indications: Other specified follicular disorders Apply thin layer to the affected area, daily, as needed for flares 30 day supply 60 mL 3 02/17/2024 08/19/2024 Discontinuedergocalciferol 1.25 mg oral capsule (10 sources)Provitamin D2 CompoundStart: 05-31-2024 End: 73-58-4250fvvz 1 capsule by mouth every weekergocalciferol (Drisdol) 1.25 MG (68436 UT) capsule Indications: Vitamin D deficiency Take 1 capsule (1.25 mg) by mouth 1 (one) time per week 12 capsule 3 05/31/2024 09/08/2024 Discontinued escitalopram 10 mg oral tablet (7 sources)Serotonin Reuptake InhibitorStart: 09-14-2025 End: 08-69-4746Vrmpmvwqnpoh Oxalate 5 mg tablet Discontinued MG PO September 14, 2025 12:00am September 14, 2025 9:16amStart: 94-69-2440semqzcrjxhmn (Lexapro) 10 MG tablet 07/20/2025 ActiveStart: 06-02-2025 End: 72-14-7812zlecgcxjtcgq oxalate (LEXAPRO) 5 mg tablet Take 5 mg by mouth. 06/02/2025 08/31/2025 Activefluticasone propionate 0.05 mg/actuat metered dose nasal spray (9 sources)CorticosteroidStart: 31-72-5089Vhfwmfqcsvz Propionate 50 mcg/actuation spray,suspension Active INTRANASAL September 14, 2025 12:00am Complies with drug therapyStart: 16-45-6218xfwi 1 spray(s) nasal route twice dailyfluticasone (Flonase) 50 MCG/ACT nasal spray USE 1 SPRAY(S) IN EACH NOSTRIL TWICE DAILY SHAKE GENTLY BEFORE FIRST USE PRIME PUMP AFTER USE CLEAN TIP AND REPLACE CAP 07/14/2025 ActiveStart: 10-14-2024 End: 26-18-0892bdqh 2 spray(s) nasal route once dailyfluticasone (FLONASE) 50 mcg/actuation nasal spray Use 2 sprays in each nostril once daily. 10/14/2024 10/14/2025 ActivehydrOXYzine hydrochloride 25 mg oral tablet (20 sources)AntihistamineStart: 78-18-7704Xmxbfxthlid Hcl 25 mg tablet Active MG PO September 14, 2025 12:00am Complies with drug therapyStart: 46-52-1030rqxo 5 tablets by mouth three times daily as neededhydrOXYzine HCl (Atarax) 10 MG tablet Take 50 mg by mouth 3 (three) times a day as needed 07/21/2009 Active Start: 33-93-6659ehhuBMVxdyp HCl (ATARAX) 10 mg tablet Take 10 mg by mouth as needed. 07/21/2009 Activeibuprofen 800 mg oral tablet (20 sources)Nonsteroidal Anti-inflammatory DrugStart: 09-04-2024 End: 79-29-1263nmxatddzd 800 MG tablet Take 600 mg by mouth every 6 (six) hours if needed for moderate pain 09/04/2024 09/29/2025 DiscontinuedStart: 09-04-2024 take 1 tablet by mouth every six hours as needed for painibuprofen 800 MG tablet Take 800 mg by mouth every 6 (six) hours if needed for moderate pain 09/04/2024 Activeindomethacin 25 mg oral capsule (6 sources)Nonsteroidal Anti-inflammatory DrugStart: 31-29-8061fnrjwnrvgthv (Indocin) 25 MG capsule 07/08/2025 Activeiv contrast (will be provided with radiology test) (1 source)Start: 11-23-2024 End: 49-72-5321jvgorx 1 dose intravenously onceiv contrast (will be provided with radiology test) Indications: Right trigeminal neuralgia MRI Brain Inject, intravenously, once for 1 dose.No IV access, insert saline lock prior to beginning of sedation, infusion, injection of imaging exam.Discontinue saline lock post exam. If Pt. has a central line or IVAD, may access for administration according to line specific nursing protocol.Once exam is complete flush line and de-access according to line specific nursing protocol in the MR contrast administration guidelines link 1 Each 11/23/2024 11/24/2024 ActivelevoFLOXacin 250 mg oral tablet (10 sources)Quinolone AntimicrobialStart: 09-04-2024 End: 92-99-6949upnc 2 tablets by mouth once dailylevoFLOXacin (Levaquin) 250 MG tablet Take 2 tablets by mouth Daily 09/04/2024 09/17/2024 Discontinued (Therapy completed)magnesium glycinate 118 mg magnesium cap (5 sources)Start: 13-94-8743drej 1 capsule by mouth once dailymagnesium glycinate 118 mg magnesium cap Take 118 mg by mouth once daily. 04/24/2024 ActivemedroxyPROGESTERone acetate 10 mg oral tablet (6 sources)ProgestinStart: 02-03-2024 End: 59-86-7190xucb 1 tablet by mouth once dailymedroxyPROGESTERone (Provera) 10 MG tablet Indications: Abnormal uterine bleeding (AUB) Take 1 tablet (10 mg) by mouth Daily Take 1 tablet by mouth daily for 7 days beginning on day 16 of the menstrual cycle. 14 tablet 3 02/03/2024 08/19/2024 Yblmbhhdgwln45 hr metFORMIN hydrochloride 500 mg extended release oral tablet (20 sources)BiguanideStart: 06-30-2024 End: 62-80-3933ueak 1 tablet by mouth every twenty-four hours at mealtime metFORMIN XR (Glucophage-XR) 500 MG 24 hr tablet Indications: Polycystic ovarian syndrome TAKE 1 TABLET BY MOUTH IN THE EVENING WITH A MEAL DO NOT CRUSH CHEW OR SPLIT 30 tablet 3 07/07/2025 Activetake 1 tablet by mouth once dailymetFORMIN ER (GLUCOPHAGE XR) 500 mg 24 hr tablet Take 500 mg by mouth once daily. Active methylPREDNISolone 4 mg oral tablet (6 sources)CorticosteroidStart: 09-13-2024 End: 13-23-7449knwwyuPOSLGUEqlzso (Medrol) 4 MG tablet 09/13/2024 10/01/2024 Discontinued (Therapy completed)omeprazole 40 mg delayed release oral capsule (6 sources)Proton Pump InhibitorStart: 36-05-0507zyupluzrgb (PriLOSEC) [address] capsule Take 40 mg by mouth 07/14/2025 ActiveStart: 96-92-9300Mgmjmmewva 20 mg TbEC 1 tab daily while taking Indomethacin. 15 tablet 1 07/05/2025 Active prazosin 1 mg oral capsule (1 source)alpha-Adrenergic BlockerStart: 40-93-8337Xrsubcvz 1 mg capsule Active MG PO September 14, 2025 12:00am Complies with drug therapypredniSONE 20 mg oral tablet (3 sources)Start: 10-01-2024 End: 72-12-1247klyd 1 tablet by mouth in the morningpredniSONE (Deltasone) 20 MG tablet Indications: LAD (lymphadenopathy) of left cervical region Take1 tablet (20 mg) by mouth in the morning and 1 tablet (20 mg) before bedtime. Do all this for 6 days. 12 tablet 10/01/2024 10/07/2024 Activerizatriptan 10 mg oral tablet (10 sources)Serotonin-1b and Serotonin-1d Receptor AgonistStart: 10-14-2024 End: 68-71-0186Eksshghosfi 10 mg tablet Active 10 MG PO as needed December 30, 2024 1:00am Complies with drug therapytriamcinolone acetonide 1 mg/ml topical cream (4 sources)CorticosteroidStart: 99-21-1265Osgffzozsgxvz Acetonide 0.1 % cream Active APPLIC TOPICAL September 14, 2025 12:00am Complies with drug therapy Start: 07-37-4529pmosstrivrppq (Kenalog) 0.1 % cream 07/21/2025 Dchozu08 hr venlafaxine 37.5 mg extended release oral capsule (10 sources)Serotonin and Norepinephrine Reuptake InhibitorStart: 09-08-2024 End: 98-74-7965hsan 1 capsule by mouth once dailyvenlafaxine XR (Effexor XR) 37.5 MG 24 hr capsule Indications: Mood disorder (CMS/HCC) Take 1 capsule (37.5 mg) by mouth Daily Do not crush or chew. 30 capsule 11 09/08/2024 09/17/2024 Discontinued (Therapy completed)vitamin b12 0.1 mg oral tablet (6 sources)Vitamin B12 End: 09-17-0773wknk 1 tablet by mouth once dailycyanocobalamin (Vitamin B-12) 100 MCG tablet Take 100 mcg by mouth Daily 08/19/2024 Discontinued Completed/Discontinued Medications MedicationDrug Class(es)DatesSig (Normalized)Sig (Original)cyclobenzaprine hydrochloride 5 mg oral tablet (4 sources)Muscle Relaxant End: 18-83-2628jrvn 1 tablet by mouth once dailycyclobenzaprine (FLEXERIL) 5 mg tablet Take 5 mg by mouth once daily. 07/05/2025 Discontinuedgabapentin 100 mg oral capsule (4 sources)Anti-epileptic AgentStart: 04-13-2025 End: 57-51-5308durf 1 capsule by mouth once daily before dinnergabapentin (NEURONTIN) 100 mg capsule Indications: Right trigeminal neuralgia Take 1 capsule by mouth daily before dinner for 180 days. 30 capsule 5 04/13/2025 07/05/2025 Discontinued (Side Effects)Start: 03-15-2025 End: 13-79-6179detz 1 capsule by mouth once daily at bedtimegabapentin (NEURONTIN) 300 mg capsule Indications: Chronic migraine without aura, intractable, without status migrainosus , Trigeminal nerve disorder Take 1 capsule by mouth daily at bedtime for 90 days. 30 capsule 2 03/15/2025 06/13/2025 Active Problems Active Problems Problem ClassificationProblemDateDocumented DateEpisodic/Chronic Administrative/social admission (2 sources)Patient encounter status; Translations: [Person consulting for explanation of examination or test findings]29-44-7045TtcgjkzwLzpqono disorders (20 sources)Anxiety; Translations: [Posttraumatic stress disorder]Onset: 035943-36-5716EyjehomKlmuxdlcl-rknxmhk, conduct, and disruptive behavior disorders (2 sources)Attention deficit hyperactivity libammtx55-80-0652HaupporBqefbbhi of mouth; excluding dental (1 source)Aphthous ulceration of skin and/or mucous membrane; Translations: [Recurrent oral aphthae]94-66-2538MdrkbtydExphalqpqxrgh (6 sources)Endometriosis (clinical); Translations: [Endometriosis, unspecified] Onset: 820826-38-3968FfuzppsPuxhdq infertility (4 sources)Female infertility; Translations: [Female infertility, unspecified] 71-17-1879EclewmkZekjtzuavtqnw symptoms and ill-defined conditions (1 source)Nocturnal enuresis; Translations: [NOCTURNAL ENURESIS]Onset: 53-26-1923AlqvtazHscyulpq; including migraine (20 sources)Chronic intractable migraine without aura; Translations: [Chronic migraine without aura, intractable, without status migrainosus]Onset: 03-30-2025 07-53-3084FeyhfbdAnojikpn; including migraine (5 sources)Pain in face; Translations: [Right facial pain]Onset: 07-05-2025 51-94-4962JxvopsygNbbvetyb; including migraine (1 source)Headache; including migraine; Translations: [Chronic daily headache] Onset: 06-15-9260Stosigzou disorders (4 sources)Irregular periods; Translations: [Irregular menstruation, unspecified]55-20-8237QrqrcoxEuwpgcplvaeze mental health disorders (2 sources)Sleep terrors [night terrors]; Translations: [Sleep terrors (night terrors)]Onset: 97-56-6016TjqqrpiVmec disorders (8 sources)Depressive disorder; Translations: [Mood disorder]Onset: 07-13-2019 58-75-5765KygfvtkCqxoeugrhmcl breast conditions (2 sources)Lump in right breast; Translations: [Unspecified lump in the right breast, unspecified quadrant]27-65-7950QmrhbvgcHamndkwdjru deficiencies (2 sources)Vitamin D deficiency, unspecified; Translations: [Vitamin D deficiency, unspecified]Onset: 81-36-4945KllcpdeCdaor endocrine disorders (4 sources)Polycystic ovary syndrome; Translations: [Polycystic ovarian syndrome]16-66-0216WvxggloCkonb eye disorders (1 source)Convergence insufficiency; Translations: [Convergence insufficiency] Onset: 53-92-5578LvptojwxEzdxb eye disorders (1 source)Alternating exotropia; 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]Onset: 04-56-6272GeuwjdurPvujz female genital disorders (1 source)Pain in female genitalia on intercourse; Translations: [Unspecified dyspareunia]93-97-1973NzqnbukOadwg female genital disorders (1 source)History of gynecological disorder; Translations: [Personal history of other diseases of the female genital tract]12-94-7816EbumghxhMtjly nervous system disorders (1 source)Polyneuropathy, unspecified; Translations: [Polyneuropathy, unspecified]Onset: 45-00-2085EhscuydKngre nervous system disorders (20 sources)Skin sensation disturbance; Translations: [Anesthesia of skin]Onset: 717240-16-4491EfbuqytoTrjlp nervous system disorders (12 sources)Right trigeminal neuralgia; Translations: [Trigeminal neuralgia] 82-36-7702XoofacgcDmage nervous system disorders (8 sources)Trigeminal nerve disorder; Translations: [Disorder of trigeminal nerve, unspecified]43-16-8177XjsllwquCrncl non-traumatic joint disorders (4 sources)Pain in unspecified joint; Translations: [PAIN IN UNSPECIFIED JOINT] Onset: 04-19-2481XvhavmmsRworo nutritional; endocrine; and metabolic disorders (2 sources)Hypomagnesemia; Translations: [Hypomagnesemia]Onset: 07-14-2025 ChronicOther upper respiratory disease (2 sources)Allergic rhinitis, unspecified; Translations: [Allergic rhinitis, unspecified]Onset: 02-38-6939PduttsmBudxt upper respiratory infections (2 sources)Chronic sinusitis; Translations: [Chronic sinusitis, unspecified] Onset: 652161-20-5423JnydcyjRoahmklb codes; unclassified (1 source)Family history of other diseases of the musculoskeletal system and connective tissue; Translations:[FAM HX OTH DZ MUSK SYS AND CNCTV TISS]Onset: 56-38-5640CugbzzscHgaacqlbxasj (1 source)Low back pain, unspecified; Translations: [Low back pain, unspecified] Onset: 08-10-2024 Past or Other Problems Problem ClassificationProblemDateDocumented DateEpisodic/ChronicAbdominal pain (2 sources)Right upper quadrant pain; Translations: [Right upper quadrant pain] Onset: 98-71-1068VlivbagjYqsdnvhsu and vision defects (20 sources)Diplopia; Translations: [Diplopia]Onset: EpisodicConditions associated with dizziness or vertigo (20 sources)Dizziness; Translations: [Dizziness and giddiness]Onset: 08-17-2024 37-42-2786LffebqxlAkguukdgwnjsu symptoms and ill-defined conditions (2 sources)Dysuria; Translations: [Dysuria]Onset: 23-28-0700Tlwwgskn Immunizations and screening for infectious disease (5 sources)Encounter for screening for human immunodeficiency virus [HIV]; Translations: [Exposure to sexuallytransmissible disorder]Onset: 06-04-2016 45-70-5296PerwpktrUfkpylqmqbobu (6 sources)Cervical lymphadenopathy; Translations: [Localized enlarged lymph nodes]Onset: 313578-82-2303XearobqdQsqhlep and fatigue (2 sources)Other fatigue; Translations: [Other fatigue]Onset: 48-53-8981Rtjervjb Mood disorders (1 source)Mood disordersOnset: 143348-82-2521Cnjwbxl (2 sources)Candidiasis, unspecified; Translations: [Candidiasis, unspecified] Onset: 44-78-5372MrcfkiwaUtcbr connective tissue disease (2 sources)Myalgia, unspecified site; Translations: [Myalgia, unspecified site] Onset: 52-01-8941SgywbfrxUlmdm female genital disorders (2 sources)Other specified noninflammatory disorders of vagina; Translations: [Other specified noninflammatorydisorders of vagina]Onset: 10-48-9594Qsvtnyoh Other nervous system disorders (20 sources)Abnormal gait; Translations: [Unspecified abnormalities of gait and mobility]Onset: 651434-47-1245FyvzmrhuHiftj nervous system disorders (9 sources)Numbness of saddle area; Translations: [Anesthesia of skin]Onset: 840514-36-7814QljrfapqKchlu nervous system disorders (3 sources)Trigeminal neuralgia; Translations: [Trigeminal neuralgia]Onset: 27-90-7717QobvmgecBwdsv nervous system disorders (1 source)Disorder of trigeminal nerve, unspecified; Translations: [Trigeminal nerve disorder]Onset: 25-70-4881AxpdezrsHfdwd nervous system disorders (1 source)Personal history of other diseases of the nervous system and sense organs; Translations: [History of trigeminal neuralgia]Onset: 23-63-2679Cclqpbki Other screening for suspected conditions (not mental disorders or infectious disease) (5 sources)Encounter for screening for cardiovascular disorders; Translations: [Patient encounter status]Onset: 530208-40-6007AtbuofttEpgoh skin disorders (2 sources)Disorder of the skin and subcutaneous tissue, unspecified; Translations: [Disorder of the skin and subcutaneous tissue, unspecified]Onset: 09-81-2781DmlxuavsJmuru upper respiratory disease (2 sources)Other specified disorders of nose and nasal sinuses; Translations: [Other specified disorders of nose and nasal sinuses]Onset: 57-94-7909Lkjbzvwc Other upper respiratory infections (3 sources)Viral pharyngitis; Translations: [Acute pharyngitis, unspecified] Onset: 059702-72-7071SspmjvzaEenxedtx codes; unclassified (2 sources)Other general symptoms and signs; Translations: [Other general symptoms and signs]Onset: 17-56-0147CtjzfaciYadcchmguwg; intervertebral disc disorders; other back problems (20 sources)Pain in thoracic spine; Translations: [Occipital neuralgia]Onset: 63-55-8746Hfyqjkcd Results Test NameValueInterpretationReference RangeFacilityIGP,APTIMA HPV,AGE GDLNon 22-37-6900IWC GDLN ACOG TESTINGNote.NOMS HealthcareComment on above:TESTS RESULT FLAG UNITS REF RANGE LAB Clinician Provided Cytology Information Source.............Cervix;Endocervix No. of containers..01 ThinPrep Vial Age Verna ARNOLD Carmen... FLAG LEGEND: L-Low Normal,H-High Normal,LL-Alert Low,HH-Alert High <-Panic Low,>-Panic High,A-Abnormal,AA-Critical Abnormal Performed at: 01 =[address] [id number] Kiesha Monroe MD, HPV APTIMANegativeNegativeNOMS HealthcareComment on above:This nucleic acid amplification test detects fourteen high- risk HPV types (16,18,31,33,35,39,45,51,52,56,58,59,66,68) without differentiation. Performed at: =[address] [id number] Applied Mathematician: Kiesha Monroe MD, Phone: [phone] Performed at: [address] [id number] Applied Mathematician: Kiesha Monroe MD, Phone: [phone] IGP, APTIMA HPV, RFX 16/18,45Note.NOMS HealthcareComment on above:TESTS RESULT FLAG UNITS REF RANGE LAB DIAGNOSIS: 02 NEGATIVE FOR INTRAEPITHELIAL LESION OR MALIGNANCY. Specimen adequacy: 02 Satisfactory for evaluation. Endocervical and/or squamous metaplastic cells (endocervical component) are present. Performed by: 02 Osiel Hull, Ball Winder ([facility]) . 02 Note: Note 02 The Pap smear is a screening test designed to aid in the detection of premalignant and malignant conditions of the uterine cervix. It is not a diagnostic procedure and should not be used as the sole means of detecting cervical cancer. Both false-positive and false-negative reports do occur. Test Methodology: Note 02 This liquid based ThinPrep(R) pap test was interpreted using the LinkCycle(R) Arch Grants(TM) Cervical Algorithm whole slide imaging system. HPV Genotype Reflex Note 02 Criteria not met, HPV Genotype not performed. FLAG LEGEND: L-Low Normal,H-High Normal,LL-Alert Low,HH-Alert High <-Panic Low,>-Panic High,A-Abnormal,AA-Critical Abnormal Performed at: 02 [address] [facility] [address] [address] Kiesha Monroe MD, BRUSH-SPATULA CERVIX ENDOCERVIX CLINISYNCNOMS HealthcareACETYLCHOLINE REC BINDING ABon [id number] BINDING, QUALNegativeNormalNegativeWadsworth-Rittman HospitalComment on above: Order Comment: Specimen Type: BLOOD SPECIMENOrdering Facility: [facility] Address:[address] [place], [place] [address]Flyiod Comment: Anti- acetylcholine receptor binding antibody test is used as an aid in diagnosis of myasthenia gravis. A negative result cannot exclude myasthenia gravis. Clinical correlation is required.Performed By: #### ACHRAB ####[facility] MAIN LABCLIA [id number] [address] [place] Acetylcholine receptor binding Ab (S) [Moles/Vol]<0.02Normal<0.21[facility] on above:Order Comment: Specimen Type: BLOOD SPECIMENOrdering Facility: [facility] Address:[address] [place], [place] [address]Performed By: #### ACHRAB ####[facility] LABCLIA [id number] [place] [address] [place] ACETYLCHOLINE REC BLOCKING ABon [id number] BLOCKING, QUALNegative NormalNegativeOhioHealth on above:Order Comment: Specimen Type: BLOOD SPECIMENOrdering Facility: [facility] Address:[address] [place], [place] [address]Result Comment: Anti-acetylcholine receptor blocking antibody test is used as an aid in diagnosis of myasthenia gravis. A negative result cannot exclude myasthenia gravis. Clinical correlation is requ ired.Performed By: #### ACEBAB ####[facility] LABCLIA [id number] [address]Acetylcholine receptor blocking Ab/Acetylcholine Ab.total (S) [Molar fraction]<13Normal<21[facility] on above:Order Comment: Specimen Type: BLOOD SPECIMENOrdering Facility: [facility] Address:[address] [place], [place] [address]Performed By: #### ACEBAB ####[facility] LABCLIA [id number] [address] [place] ACETYLCHOLINE RECEPTOR MODULATING ANTIBODYon 86-40-8152XEHDBGFPKRJMR RECEPT/MODULATING0 %Normal<=45[facility] on above:Order Comment: Specimen Type: BLOOD SPECIMENOrdering Facility: [facility] Address:[address] [place], [place] [address]Result Comment: INTERPRETIVE INFORMATION: Acetylcholine Modulating Ab Negative .......... 0-45 percent modulating Positive .......... 46 percent or greater modulating Approximately 85-90 percent [...] developed and its performance characteristics determined by [employer]. It has not been cleared or approved by the US Food and Drug Administration. This test was performed in a CLIA certified laboratory and is intended for clinical purposes. Performed By: [facility] [employer] [address] [place] [address] [employer] Manager: Walter Mayorga MD, PhD CLIA Number: [id number] By: #### ACEMOD ####[facility] [id number] [place], [place] [address]X9Fwiw SerPl-mCncon 09-20-2025 Free T3 [Mass/Vol]2.7 pg/mLNormal2.3-4.1CChillicothe HospitalComment on above:Order Comment: Specimen Type: BLOOD SPECIMENOrdering Facility: [facility] Address:[address] [place], [place] [address]Performed By: #### 3016-3, 3024-7, 3026-2, 3051-0 ####[facility] LABCLIA [id number] [address] [place] [facility]4 Free SerPl-mCncon 05-31-6519Sapx T4 [Mass/Vol]1.0 ng/dLNormal0.9-1.7ClevelNovant Health Kerners[facility] Comment on above:Order Comment: Specimen Type: BLOOD SPECIMENOrdering Facility: [facility] Address:[address] [place] [address] Performed By: #### 3016-3, 3024-7, 3026-2, 3051-0 ####[facility] LABCLIA [id number] [place] [address] [place] T4 SerPl-mCncon 02-69-7133A6 [Mass/Vol]8.1 ug/dLNormal5.5-10.2COhio State East Hospitalment on above:Order Comment: Specimen Type: BLOOD SPECIMENOrdering Facility: [facility] Address:[address] [place], [place] [address]Performed By: #### 3016-3, 3024-7, 3026-2, 3051-0 ####[facility] LABCLIA [id number] [address] STATES [place] [facility] CLINICTHYROID PEROXIDASE ANTIBODYon 21-07-7485TCO Ab Qn4.3 [IU]/mLNormal<5.6 [facility] on above:Order Comment: Specimen Type: BLOOD SPECIMENOrdering Facility: [facility] Address:[address] [place], [place] [address]Result Comment: Thyroid Peroxidase Antibody test is used as an aid in diagnosis of autoimmune thyroid disease. Clinical correlation is required.Performed By: #### MICRO ####[facility] LABCLIA [id number] [place] [address] [place] AMERICATHYROID STIMULATING IMMUNOGLOBULIN BLOODon 15-55-8696Cjiectv stimulating immunoglobulins actual/normal (S) [Relative mass conc]%Normal<0.55[facility] Comment on above:Order Comment: Specimen Type: BLOOD SPECIMENOrdering Facility: [facility] Address:[address] [place], [place] [address]Result Comment: Thyroid Stimulating Immunoglobulin test is used as an aid in diagnosis of autoimmune hyperthyroidism especially in patients with Grave's orbitopathy and dermopathy. Low positive TSH receptor stimulating antibody levels may occasionally be found in patients with autoimmune hypothyroidism. Clinical correlation is required.Performed By: #### TSIGIM ####[facility] LABCLIA [id number] [place] [address] [place] TSI QUALITATIVENegativeNormalNegativeOhioHealth on above: Order Comment: Specimen Type: BLOOD SPECIMENOrdering Facility: [facility] Address:[address] [place], [place] [address]Performed By: #### TSIGIM ####[facility] LABCLIA [id number] [address]TS SerPl-aCncon 46-99-3500UEW Qn1.060 m[IU]/L Normal0.270-4.200Wadsworth-Rittman HospitalComment on above:Order Comment: Specimen Type: BLOOD SPECIMENOrdering Facility: [facility] Address:[address] [place] [id number] Comment: If the patient is , TSH reference range varies by gestational period: First Trimester (weeks 9-12): 0.180-2.990 mIU/L Second Trimester: 0.110-3.980 mIU/L Third Trimester: 0.480-4.710 mIU/L Reece Hale et al. A Practical Approach for the Verifications and Determination of Site- and Trimester-Specific Reference Intervals for Thyroid Function tests in . Thyroid, 2019:29:3:412-420.Ace Dunn, et al. 2017 Guidelines of the [place] Thyroid Association for the Diagnosis and Management of Thyroid Disease during and the . Thyroid, 2017:27:3:315-389. Performed By: #### 3016-3, 3024-7, 3026-2, 3051-0 ####[facility] LABCLIA [id number] [place] [id number] [place] [facility] Orders Onlyon 19-56-5683Mwhqof [id number] Kierra NATARAJAN 1990 Date Provider Department Center 07/21/2025 [facility] [place] Family History Problem Relation Age of Onset Anxiety disorder Mother Arthritis Mother Depression Mother Alcohol abuse Father Cancer Father Alcohol abuse Sister Anxiety disorder Sister Arthritis Mother's Sister Arthritis Mother's Brother Arthritis Mother's Sister Family Status - Relation Status Age at Mother Father Sister Mother's Sister Mother's Brother Mother's SisterNormalUniversity of [facility] TaylorOrders Onlyon 07-20-2025 Orders [id number] Kierra NATARAJAN 1990 Date Provider Department Center 07/20/2025 [facility] [place] Family History Problem Relation Age of Onset Anxiety disorder Mother Arthritis Mother Depression Mother Alcohol abuse Father Cancer Father Alcohol abuse Sister Anxiety disorder Sister Arthritis Mother's Sister Arthritis Mother's Brother Arthritis Mother's Sister Family Status - Relation Status Age at Mother Father Sister Mother's Sister Mother's Brother Mother's SisterNormalUniversMercy Health Fairfield HospitalResults Follow-Upon 33-53-2496Quhrzrs Follow-[id number] Kierra NATARAJAN 1990 F Date Provider Department Center 07/17/2025 [facility] Mona Collins Family History Problem Relation Age of Onset Anxiety disorder Mother Arthritis Mother Depression Mother Alcohol abuse Father Cancer Father Alcohol abuse Sister Anxiety disorder Sister Arthritis Mother's Sister Arthritis Mother's Brother Arthritis Mother's Sister Family Status - Relation Status Age at Mother Father Sister Mother's Sister Mother's Brother Mother's SisterNormalUniversity Select Medical [facility] Rehabilitation HospitalCBC WITH AUTO DIFFERENTIALon 43-11-8745Eonfcdqef (Bld) [#/Vol]0.04 10*3/uLNormal0.00-0.20 [facility] HospitalComment on above:Performed By: #### [id number] #### [facility] ([facility]) [address] [place], [place] [address]Qlojaqrsg/100 WBC (Bld)0.6 %Normal0.0-1.0UnWhite HospitalComment on above:Performed By: #### [id number] #### [facility] ([facility]) [address] [place], [place] [address]Ajgzvlrgdgo (Bld) [#/Vol]0.17 10*3/uLNormal0.00-0.50UnWhite HospitalComment on above:Performed By: #### [id number] #### [facility] ([facility]) [address] [place], [place] [address]Vypljxuwfvq/100 WBC (Bld)2.4 %Normal0.0-6.0UnWhite HospitalComment on above:Performed By: #### [id number] #### [facility] (BEAKER) [address] [place] [place] [address]Qzkswqaxnlw distribution width (RBC) [Ratio]13.3 %Normal 11.5-15.0UnWhite HospitalComment on above:Performed By: #### [id number] #### [facility] ([facility]) [address] [place] [address]AKOKIMGXRGF MEAN CORPUSCULAR HEMOGLOBIN CONCENTRATION (G/DL) BY YLDNOFYLZ57.1 g/mKYjwaur51.0-35.0UnWhite HospitalComment on above:Performed By: #### [id number] #### [facility] ([facility]) [address] [place], [place] [address]Zcceirskmg (Bld) [Volume fraction]41.4 %Zqbitx20.0-45.0 [facility] HospitalComment on above:Performed By: #### [id number] #### [facility] ([facility]) [address] [place], [place] [address]Bhmqrsqooh (Bld) [Mass/Vol]13.7 g/iCGoqfhn52.0-15.0UnWhite HospitalComment on above:Performed By: #### [id number] #### [facility] ([facility]) [address] [place], [place] [address]Fftdxgpq granulocytes (Bld) [#/Vol]0.03 10*3/uLNormal0.00-0.20 [facility] HospitalComment on above:Performed By: #### [id number] #### [facility] ([facility]) [address] [facility] [place] [address]Timdlivg granulocytes/100 WBC (Bld)0.4 %Normal0.0-1.0UnWhite HospitalComment on above:Performed By: #### [id number] #### [facility] ([facility]) [address] [place], [place] [address]Yxxgodckwru (Bld) [#/Vol]1.42 10*3/uLNormal1.20-4.00UnWhite HospitalComment on above:Performed By: #### [id number] #### [facility] ([facility]) [address] [place] [address]Whqdkhwjnjn/100 WBC (Bld)19.9 %Low20.0-45.0UnWhite HospitalComment on above:Performed By: #### [id number] #### [facility] ([facility]) [address] [place] [address]LOA (RBC) [Entitic mass]28.9 sjKpiwkp55.0-33.0UnWhite HospitalComment on above:Performed By: #### [id number] #### [facility] ([facility]) [address] [place], [place] [address]EAW (RBC) [Entitic vol]87.3 nSLkrypy58.0-98.0UnWhite HospitalComment on above:Performed By: #### [id number] #### [facility] ([facility]) [address] [place], [place] [address]Rdobuvuoa (Bld) [#/Vol]0.49 10*3/uLNormal0.10-1.00UnWhite HospitalComment on above:Performed By: #### [id number] #### [facility] ([facility]) [address] [place], [place] [address]Xtalzdddl/100 WBC (Bld)6.9 %Normal5.0-12.0UnWhite HospitalComment on above:Performed By: #### [id number] #### [facility] ([facility]) [address] [place], [place] [address]Uovrzhhvdxh (Bld) [#/Vol]4.99 10*3/uLNormal1.60-7.60UnWhite HospitalComment on above:Performed By: #### [id number] #### [facility] ([facility]) [address] [place], [place] [address]Tzyfkzszqww/100 WBC (Bld)69.8 %Fahzwj10.0-72.0UnWhite HospitalComment on above:Performed By: #### [id number] #### [facility] ([facility]) [address] [address]FAWF (PER 100 WBCS) BY AUTOMATED COUNT0.0 %Zgsolf4WiampjzkizWhite HospitalComment on above:Performed By: #### [id number] #### [facility] ([facility]) [address] [address]XRNKJHQMG (10*3/UL) IN BLOOD AUTOMATED CMSIJ092 10*3/uLNormal 150-400UnWhite HospitalComment on above:Performed By: #### [id number] #### [facility] ([facility]) [address] [address]TCH (Bld) [#/Vol]4.74 10*6/uLNormal3.80-5.00UnWhite HospitalComment on above:Performed By: #### [id number] #### [facility] ([facility]) [address] [address]XNM (Bld) [#/Vol]7.14 10*3/uLNormal4.00-10.60UnWhite HospitalComment on above:Performed By: #### [id number] #### [facility] ([facility]) [address] [address]QJMIGWDWMNBOB METABOLIC PANELon 84-18-4453Mfpsprv [Mass/Vol]4.3 g/dLNormal3.5-5.7UnWhite HospitalComment on above:Performed By: #### [id number] ####[facility] ([facility])[address] [place] [address] ALP [Catalytic activity/Vol]58 U/EOimpsi41-388GhuoioivpqWhite HospitalComment on above:Performed By: #### [id number] ####[facility] ([facility])[address] [place] [address]TNH [Catalytic activity/Vol]14 U/L Normal7-52UnWhite HospitalComment on above:Performed By: #### [id number] ####[facility] ([facility])[address] [place], [place] [address]Yfohk gap [Moles/Vol]10 mmol/LNormal7-20UnWhite HospitalComment on above:Performed By: #### [id number] ####[facility] ([facility])[address] [place], [place] [address]VNK [Catalytic activity/Vol]17 U/LCowdgd77-71IseghjzbozWhite HospitalComment on above:Performed By: #### [id number] ####[facility] ([facility])[address] [place], [place] [address]Kbyogdgns [Mass/Vol]0.4 mg/dL Normal0.3-1.0UnWhite HospitalComment on above:Performed By: #### [id number] ####[facility] ([facility])[address] [place] [address] Calcium [Mass/Vol]9.1 mg/dLNormal8.6-10.3UnWhite Hospital Comment on above:Performed By: #### [id number] ####[facility] ([facility])[address] [place], [place] [address]Wwexjdwi [Moles/Vol]106 mmol/SDwnorq78-546 [facility] HospitalComment on above:Performed By: #### [id number] ####[facility] ([facility])[address] [place], [place] [address]AS0 [Moles/Vol] 26 mmol/VLufkgz80-23MdoxpibcgzWhite HospitalComment on above: Performed By: #### [id number] ####[facility] ([facility])[address] [place], [place] [address]Ahutfuvpvg [Mass/Vol]0.95 mg/dLNormal0.60-1.20UnWhite HospitalComment on above:Performed By: #### [id number] ####[facility] ([facility])[address] [place], [place] [address]XYDAIOZCIE FILTRATION RATE ML/MIN/1.73 SQ M.TMKMHOJZT33.1 mL/min/1.73m*2Normal>60.0UnWhite Hospital Comment on above:Result Comment: [facility]???s estimated glomerular filtration rate (eGFR) will no longer include consideration of race in its calculation. The National Kidney Foundation???s eGFR Task Force developed new recommendations for the estimation of the glomerular filtration ra te in the [place] They recommend immediate implementation of the new equation refit without the race variable in all laboratories because the calculation does not include race. In addition to not including race in the calculation and reporting, it included diversity in its development, and has acceptable performance characteristics and potential consequences that do not disproportionately affect anyone group of individuals.Performed By: #### [id number] ####[facility] ([facility])[address] [place], [place] [address]Vkhubpf [Mass/Vol]89 mg/lYTqqjbt69-880NvtqavhpqoWhite HospitalComment on above:Performed By: #### [id number] ####[facility] ([facility])[address] [place], [place] [address]Txepjhdva [Moles/Vol]4.2 mmol/LNormal3.5-5.1UnWhite HospitalComment on above:Performed By: #### [id number] ####[facility] ([facility])[address] [place], [place] [address]Tfkfvar [Mass/Vol]7.0 g/dLNormal 6.0-8.3UnWhite HospitalComment on above:Performed By: #### [id number] ####[facility] ([facility])[address] [place], [place] [address]Rshpad [Moles/Vol]138 mmol/LJibihj587-824NvsvfneqxgWhite HospitalComment on above:Performed By: #### [id number] ####[facility] ([facility])[address] [place], [place] [address]Tfhn nitrogen [Mass/Vol]16 mg/dLNormal7-25UnWhite HospitalComment on above:Performed By: #### [id number] ####[facility] ([facility])[address] [place], [place] [address]YHWB NITROGEN/CREATININE (MASS RATIO) IN SER/PLAS16.8NormalUniversMercy Health Fairfield HospitalCombronson methodist hospital on above: Performed By: #### [id number] ####[facility] ([facility])[address] [place], [place] [address]GZFIU PANELon 76-26-9822WACS/HDL5.3 mg/dLNormalUniversMercy Health Fairfield HospitalComment on above:Performed By: #### [id number] ####[facility] ([facility])[address] [place], [place] [address]Corvieofcqb [Mass/Vol]195 mg/dLNormal 120-200UnWhite HospitalComment on above:Performed By: #### [id number] ####[facility] ([facility])[address] [place], [place] [address]Fiiyiypld [Mass/Vol]97 mg/dLNormal<150UnWhite HospitalComment on above: Result Comment: TRIGLYCERIDE REFERENCE RANGE: 20 YEARS AND OLDER CARDIOVASCULAR RISK LESS THAN 150 mg/dL LOW RISK 150 TO 199 mg/dL BORDERLINE RISK 200 mg/dL AND GREATER HIGH RISKPerformed By: #### [id number] ####[facility] ([facility])[address] [place], [place] [address]Emasshoan [Mass/Vol]139 mg/dLNormal 0-160UnWhite HospitalComment on above:Performed By: #### [id number] ####[facility] ([facility])[address] [place], [place] [address]Gothxluzb [Mass/Vol]37 mg/yQJpvrwi92-67EwnbhhccabWhite HospitalComment on above:Performed By: #### [id number] ####[facility] ([facility])[address] [place], [place] [address]TTT HDL CHOL. (LDL+VLDL)158NormalUniversMercy Health Fairfield HospitalComment on above:Performed By: #### [id number] ####[facility] ([facility])[address] [place], [place] [address]VREOC VLDL-C19 mg/dLNormal0-40 [facility] HospitalComment on above:Performed By: #### [id number] ####[facility] ([facility])[address] [facility] [place] [place] [address]OLELXHAZTwv 31-64-3046Ozzmmouuy [Mass/Vol]2.2 mg/dLNormal1.9-2.7UnWhite HospitalComment on above:Performed By: #### [id number] #### [facility] (AKER) [address] [place], [place] [address]Lvxngb Visiton 81-71-2197Sqdapg-up [id number] Kierra NATARAJAN 1990 F Date Provider Department Center 07/14/2025 [facility] [place] Family History Problem Relation Age of Onset Anxiety disorder Mother Arthritis Mother Depression Mother Alcohol abuse Father Cancer Father Alcohol abuse Sister Anxiety disorder Sister Arthritis Mother's Sister Arthritis Mother's Brother Arthritis Mother's Sister Family Status - Relation Status Age at Mother Father Sister Mother's Sister Mother's Brother Mother's Sister Level of Service:93402 [place] PERIODIC PREVENTIVE MED EST PATIENT 18-39 YRS Reason for Visit and Comments: Anxiety [9]NormalMarion HospitalRefillon 30-38-6742Lkdqlt [id number] Kierra NATARAJAN 1990 F Date Provider Department Center 07/14/2025 [facility] Fallnazanin [place] Family History Problem Relation Age of Onset Anxiety disorder Mother Arthritis Mother Depression Mother Alcohol abuse Father Cancer Father Alcohol abuse Sister Anxiety disorder Sister Arthritis Mother's Sister Arthritis Mother's Brother Arthritis Mother's Sister Family Status - Relation Status Age at Mother Father Sister Mother's Sister Mother's Brother Mother's Sister Reason for Visit and Comments: Med Change Request [411]NormalMarion HospitalTSH3 REFLEX TO FT4on 79-78-8568LADHQAEBIFM (MIU/L) IN SER/PLAS BY DETECTION LIMIT <= 0.05 MIU/L 1.95 mIU/LNormal0.34-5.60Marion HospitalComment on above: Performed By: #### [id number] #### [facility] (BEAKER) [address] [address]RGGBLOX D 25 HYDROXYon 62-72-4085OROHTMWGU (25 [place] VITAMIN D3) (NG/ML) IN SER/PLAS38.2 ng/mMArynhr77.0-80.0Un[facility] Hospital Comment on above:Result Comment: >80.0 Toxicity possiblePerformed By: #### [id number] #### [facility] (BEAKER) [address] [address]FVLMwj 16-09-4427YYAPPqzjyn Visit ([facility]) KIERRA NATARAJAN ([id number]) 1990 F Date Time Provider Department 07/05/25 1:00 PM AVERY GAINES [facility] During your visit today, we recorded the following information about you: Pulse Blood pressure Weight 80/minute 119/80 112.5 kg Avery Gaines DO 07/05/2025 2:19 PM Signed Previous records (physician notes, laboratory reports, and radiology reports) and imaging studies were reviewed and summarized as below. My recommendations will be communicated back to the patient's primary care physician and/or consulting physician(s) by way of shared medical record or letter via [place] mail. Thank you for allowing me to contribute to the care of your patient. ASSESSMENT: 34 year old female with history significant for migraine, chronic migraine, R occipital neuralgia, R trigeminal nerve disorder, PCOS, anxiety, depression, with R sided chronic daily headache and variable R sided facial pain. Overall, symptoms fit criteria and a good story for hemicrania continua, so we'll first exclude this with an Indocin trial. If no response, I would treat this as chronic migraine with R occipital neuralgia and cervicogenic contributions with variable R trigeminal neuralgia with persistent background pain vs. trigeminal neuropathy (could fit with both). PLAN: (Please see typed patient instructions for detailed instructions) ---> Acute Treatment: -Indocin trial. ---> Preventive Treatment: -Indocin trial. If no response, I would suggest either changing Lexapro to Cymbalta or sending for Botox next. -Supplements discussed. ---> Headache education was done. Discussed lifestyle modification including increased oral hydration, decreased caffeine, exercise and stress management. Discussed treatment options including preventive and acute medications, natural supplements. Discussed medication overuse headache and to limit use of acute treatments to no more than 2 days/week or 10 days/month. Discussed medication side effects, adverse reactions and drug interactions. Written educational materials and patient instructions outlining all of the above were given. ---> Follow-up: 3 months. REFERRING PHYSICIAN: Maggy Jacobo [id number] [facility] [id number] PCP: Rohit Leos [id number] [place] [address] Accompanied by: Self CC: Headache, Migraine, Facial Pain, and Trigeminal Neuralgia HxCC: 34 year old female with history significant for migraine, chronic migraine, R occipital neuralgia, R trigeminal nerve disorder, PCOS, anxiety, depression, who presents for evaluation of R sided chronic daily headache and variable R sided facial pain. FACIAL PAIN FEATURES: Onset: July 2024 in the setting of high stress (mom diagnosed with early onset Alzheimer's and father was septic in hospital). Side: R Distribution: V3 > V2 > V1 Any pain on side or back of head: Yes Character: Electrifying numb pressure Duration: Seconds Frequency: Can be frequent volleys. Pain-free between episodes: No, but low level pressure in background continuously Triggers: Talking, singing, eating. Sensory abnormalities: Intermittent Tried Tegretol/Trileptal (initial response): Possible side effects. Other medications tried: See prior med list below Prior procedures/outcome: No History of MS, Lyme's disease, facial rash: No History of dental/oral surgery, facial/plastic surgery: Top R wisdom teeth removed years ago. Autonomic features: Yes, per headache description below. HEADACHE TYPE 1: Onset: Childhood on, occasional migraines. Had a fall June 2023 with a nasal fracture in September 2023 and started to get a frequent R sided aching. May 2024 started to get a lot more migraines and had a bad flare which when on for multiple days. Prior to this would only get a few migraines around season changes and otherwise no headaches. Since the fall, getting a lot more headaches. Location: R side side of head only. Worst is R occipital and spreads up over side of head into frontal temporal regions. Description: Steady, throbbing. Characteristics: Duration: Headache attacks last more than 4 hours. Frequency: 8-10 overall higher level pain headache days per month which includes 5-6 bad migraine days per month. However, she does have a continuous R sided headache in the R side of the head all the time to a lower level. Timing: Worse in the evening after work. Time to peak pain intensity: Variable. Associated symptoms: Aura: absent but can occasionally get some strobing for a few seconds. Photophobia, Phonophobia, and Nausea. Gets some drooping of R eyelid when bad, R nasal congestion most of the time. 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 - Cholecalciferol, Vitamin D3, (VITAMIN D-3) 10 mcg (400 unit) chew - Clindamycin Phosphate (CLEOCIN T) 1 % lotion Apply 1 application to affected area as needed. - cyclobenzaprine (FLEXERIL) 5 mg tablet Take 5 mg by mouth once daily. - fluticasone (FLONASE) 50 mcg/actuation nasal spray Use 2 sprays in each nostril once daily. - magnesium glycinate 118 mg magnesium cap Take 118 mg by mouth once daily. - rizatriptan (MAXALT) 10 mg tablet Take 10 mg by mouth as needed. - baclofen 10 mg tablet Take half-1 tablet twice a day as needed for facial pain, may cause drowsiness - metFORMIN ER (GLUCOPHAGE XR) 500 mg 24 hr tablet Take 500 mg by mouth once daily. - hydrOXYzine HCl (ATARAX) 10 mg tablet Take 10 mg by mouth as needed.NormalWadsworth-Rittman HospitalOffice Visiton [id number] Kierra NATARAJAN 1990 F Date Provider Department Center 06/02/2025 511-ROHIT LEOS [facility] PRIM Mona Collins Family History Problem Relation Age of Onset Anxiety disorder Mother Arthritis Mother Depression Mother Alcohol abuse Father Cancer Father Alcohol abuse Sister Anxiety disorder Sister Arthritis Mother's Sister Arthritis Mother's Brother Arthritis Mother's Sister Family Status - Relation Status Age at Mother Father Sister Mother's Sister Mother's Brother Mother's Sister Level of Service:89094 [place] OFFICE/OUTPATIENT ESTABLISHED MOD MDM 30 MIN Reason for Visit and Comments: Follow-up [181213] - Follow up for nasal issues and trigeminal neuralgiaNormal Marion HospitalRefillon [id number] Kierra NATARAJAN 1990 F Date Provider Department Center 05/17/2025 511-ROHIT LEOS [facility] PRIM Mona Collins Family History Problem Relation Age of Onset Anxiety disorder Mother Arthritis Mother Depression Mother Alcohol abuse Father Cancer Father Alcohol abuse Sister Anxiety disorder Sister Arthritis Mother's Sister Arthritis Mother's Brother Arthritis Mother's Sister Family Status - Relation Status Age at Mother Father Sister Mother's Sister Mother's Brother Mother's Sister Reason for Visit and Comments: Med Refill [[id number]]NormalUnWhite HospitalCNTHERAPYon [id number]/PT/Speech Visit (LOPTRM) KIERRA NATARAJAN ([id number]) 1990 F Date Time Provider Department 05/05/25 2:15 PM JENNIFER LOPEZ Date Time Provider Department Center 05/05/2025 2:15 PM [id number] LOPEZ Reason for Visit: Physical Therapy [503] Primary Visit Diagnosis: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 - Cholecalciferol, Vitamin D3, (VITAMIN D-3) 10 mcg (400 unit) chew - Clindamycin Phosphate (CLEOCIN T) 1 % lotion Apply 1 application to affected area as needed. - cyclobenzaprine (FLEXERIL) 5 mg tablet Take 5 mg by mouth once daily. - fluticasone (FLONASE) 50 mcg/actuation nasal spray Use 2 sprays in each nostril once daily. - magnesium glycinate 118 mg magnesium cap Take 118 mg by mouth once daily. - rizatriptan (MAXALT) 10 mg tablet Take 10 mg by mouth as needed. - baclofen 10 mg tablet Take half-1 tablet twice a day as needed for facial pain, may cause drowsiness - metFORMIN ER (GLUCOPHAGE XR) 500 mg 24 hr tablet Take 500 mg by mouth once daily. - hydrOXYzine HCl (ATARAX) 10 mg tablet Take 10 mg by mouth as needed.NormalOhioHealth Arthur G.H. 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 - Cholecalciferol, Vitamin D3, (VITAMIN D-3) 10 mcg (400 unit) chew - Clindamycin Phosphate (CLEOCIN T) 1 % lotion Apply 1 application to affected area as needed. - cyclobenzaprine (FLEXERIL) 5 mg tablet Take 5 mg by mouth once daily. - fluticasone (FLONASE) 50 mcg/actuation nasal spray Use 2 sprays in each nostril once daily. - magnesium glycinate 118 mg magnesium cap Take 118 mg by mouth once daily. - rizatriptan (MAXALT) 10 mg tablet Take 10 mg by mouth as needed. - baclofen 10 mg tablet Take half-1 tablet twice a day as needed for facial pain, may cause drowsiness - metFORMIN ER (GLUCOPHAGE XR) 500 mg 24 hr tablet Take 500 mg by mouth once daily. - hydrOXYzine HCl (ATARAX) 10 mg tablet Take 10 mg by mouth as needed. 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 Self massage: toothbrush to right side masseter muscle.ANDnbsp; 2. right hand on left side of the front of the neck. with chin nodANDnbsp; 3. Left hand on the right sided nasal bone and cheek bone by the nose with lower trunk rotation 4. Posture: breast bone should be vertical, like you can sing loud.ANDnbsp; 5. Breath low, like singing.ANDnbsp; Exercises - Supine Deep Neck Flexor Training - 1 x daily - 7 x weekly - 3 sets - 10 reps - Supine Lower Trunk Rotation - x daily - x weekly - sets - reps Normal Wadsworth-Rittman HospitalTHERAPY NTon [id number] NTHNO ID: [id number] Author: JENNIFER LOPEZ, PT Service: ? Author Type: Physical Therapist Type: Therapy (PT/OT/Speech/Resp) Filed: 04/13/2025 16:22 Note Text: Program_ID:[id number] Access Code: [email or web address] URL: [email or web address] Date: 04-13-2025 Prepared By: Jennifer Lopez Program Notes 1. Self massage: toothbrush to right side masseter muscle. 2. right hand on left side of the front of the neck. with chin nod 3. Left hand on the right sided nasal bone and cheek bone by the nose with lower trunk rotation 4. Posture: breast bone should be vertical, like you can sing loud. 5. Breath low, like singing. Exercises - Supine Deep Neck Flexor Training - 1 x daily - 7 x weekly - 3 sets - 10 reps - Supine Lower Trunk Rotation - x daily - x weekly - sets - repsNormalCPaulding County Hospital NOTEon [id number] NOTEHNO ID: [id number] Author: THOMAS ESPARZA RN Service: Emergency Medicine Author Type: Registered Nurse Type: ED Notes Filed: 03/30/2025 15:57 Note Text: pt states the pressure in my head/face is totally gone, I feel so good. Normal [facility] NOTEHNO ID: [id number] Author: THOMAS ESPARZA RN Service: Emergency Medicine Author Type: Registered Nurse Type: ED Notes Filed: 03/30/2025 14:43 Note Text: steadily ambulated to room, states this is her trigeminal neuralgia ALTAMIRANO flare up. No trauma or feversNormalCPaulding County Hospital PROV NOTEon [id number] PROV NOTEHNO ID: [id number] Author: ERMELINDA RODRIGUES MD Service: Emergency Medicine Author Type: Physician Type: ED Provider Notes Filed: 03/30/2025 16:31 Note Text: ED Provider Note Patient Name: Kierra Natarajan : 1990 SERVICE DATE: 03/30/25 History Patient presents with: Headache: Right sided pressure This is a 34-year-old female who comes in with complaints of pressure in the right side of her head and headache. She has had this for about a week. She has had significant visits MRI of the brain she was diagnosed with some trigeminal neuralgia. She states that the pressure and headache have been there and do it difficult to deal with no numbness weakness or tingling arms or legs and here for further evaluation denies any trauma History reviewed. No pertinent past medical history. History reviewed. No pertinent surgical history. No family history on file. Social History Tobacco Use - Smoking status: Former Current packs/day: 0.00 Types: Cigarettes Quit date: 06/2022 Years since quittin.7 - Smokeless tobacco: Never Substance and Sexual Activity - Alcohol use: Never - Drug use: Yes Types: Marijuana - Sexual activity: Not on file ALLERGIES Allergen Reactions - Dextromethorphan-Gu* Unknown Review of Systems Constitutional: Negative for fever. HENT: Negative for trouble swallowing. Eyes: Negative for visual disturbance. Respiratory: Negative for shortness of breath. Cardiovascular: Negative for chest pain. Gastrointestinal: Negative for abdominal pain. Genitourinary: Negative for frequency. Musculoskeletal: Negative for arthralgias. Skin: Negative for rash. Neurological: Positive for headaches. Negative for tremors, seizures, syncope, weakness and numbness. Pressure in the right side of her face. Hematological: Negative for adenopathy. Psychiatric/Behavioral: Negative for suicidal ideas. All other systems reviewed and are negative. Physical Exam Vitals [03/30/25 1434] BP Pulse Temp Temp src Resp SpO2 Weight Height 155/86 88 36.7 ?C (98 ?F) Oral 20 98 % 113.4 kg (250 lb) -- Physical Exam Vitals and nursing note reviewed. Constitutional: Appearance: Normal appearance. HENT: Head: Normocephalic and atraumatic. Right Ear: Tympanic membrane, ear canal and external ear normal. Left Ear: Tympanic membrane, ear canal and external ear normal. Nose: Nose normal. Mouth/Throat: Mouth: Mucous membranes are moist. Eyes: Extraocular Movements: Extraocular movements intact. Conjunctiva/sclera: Conjunctivae normal. Pupils: Pupils are equal, round, and reactive to light. Cardiovascular: Rate and Rhythm: Normal rate and regular rhythm. Pulses: Normal pulses. Heart sounds: Normal heart sounds. No murmur heard. No friction rub. No gallop. Pulmonary: Effort: Pulmonary effort is normal. No respiratory distress. Breath sounds: No wheezing, rhonchi or rales. Abdominal: General: Bowel sounds are normal. There is no distension. Palpations: Abdomen is soft. There is no mass. Tenderness: There is no abdominal tenderness. There is no right CVA tenderness, left CVA tenderness, guarding or rebound. Hernia: No hernia is present. Musculoskeletal: General: No tenderness, deformity or signs of injury. Normal range of motion. Cervical back: Normal range of motion and neck supple. No rigidity. Right lower leg: No edema. Left lower leg: No edema. Lymphadenopathy: Cervical: No cervical adenopathy. Skin: General: Skin is warm and dry. Capillary Refill: Capillary refill takes less than 2 seconds. Coloration: Skin is not jaundiced. Findings: No erythema, petechiae or rash. Neurological: General: No focal deficit present. Mental Status: She is alert and oriented to person, place, and time. Mental status is at baseline. Cranial Nerves: No cranial nerve deficit. Sensory: No sensory deficit. Motor: No weakness. Deep Tendon Reflexes: Reflexes normal. Comments: Cranial nerves II through XII are intact DTRs are intact strength 5 out of 5 upper lower extremity balance symmetrically Psychiatric: Mood and Affect: Mood normal. Thought Content: Thought content does not include homicidal or suicidal ideation. Diagnostic Testing ED Labs Ordered and Reviewed - No data to display Procedures ED Course / Clinical Impression Clinical Impressions as of 03/30/25 1632 Other migraine without status migrainosus, not intractable History of trigeminal neuralgia MDM / Disposition / Plan Patient was given a migraine cocktail with significant relief states that she feels great now. No pressure or pounding and no headache at this time. Reviewed MRIs and all findings and she will be discharged with follow-up to her neurologist. History and Record Review External record(s) reviewed: see ED Course. Differential Diagnoses - Headache is more likely for the following reason(s): suggested by HANDP - Bacterial Meningitis (more content not included)...NormalWadsworth-Rittman HospitalRefillon [id number] Kierra NATARAJAN 1990 F Date Provider Department Center 03/30/2025 Sylvai7-[facility] Mona Collins Family History Problem Relation Age of Onset Anxiety disorder Mother Arthritis Mother Depression Mother Alcohol abuse Father Cancer Father Alcohol abuse Sister Anxiety disorder Sister Arthritis Mother's Sister Arthritis Mother's Brother Arthritis Mother's Sister Family Status - Relation Status Age at Mother Father Sister Mother's Sister Mother's Brother Mother's Sister Reason for Visit and Comments: Med Refill [[id number]]NormalMarion HospitalCNOVon 03-15-2025 CNOVOffice Visit ([facility]) KIERRA NATARAJAN ([id number]) 1990 F Date Time Provider Department 03/15/25 11:30 AM MAGGY JACOBO [facility] During your visit today, we recorded the following information about you: Temperature Pulse Blood pressure Weight 98.2 degrees 83/minute 130/83 113.6 kg Height Last Period 1.754 m 02/25/25 Maggy Jacobo APRN.CNP 03/15/2025 1:43 PM Signed Outpatient [facility] - Follow Up Visit Accompanied by: Self Primary Problem List: There is no problem list on file for this patient. Chief Complaint: facial pain LV: 03/03/25 Beth Phillips CNP Impression and Plan from last visit: Right trigeminal neuralgia (primary encounter diagnosis) Trigeminal nerve disorder Occipital neuralgia of right side Kierra Natarajan is a 34-year-old female with history significant for facial pain, trigeminal neuralgia, obesity, ADHD, anxiety and depression. She presents virtually for follow-up regarding headache and facial pain consistent with right sided trigeminal neuralgia vs. neuropathy and likely occipital neuralgia. Workup with MRI/MRA Brain have been unrevealing for secondary cause. She is currently taking Magnesium supplementation and Baclofen PRN. She was doing much better for a period of time, but did have flaring of symptoms over the past week. She is feeling much better again starting yesterday and today. She is trying for , so would like to limit long-term medications ideally at this time. She will continue Baclofen as needed and we discussed trial of half tablet/dosing to see if better tolerated. She is aware to stop this if . I also advised referral to Neuro Obstetrics to further review possible treatment options for her pain and symptoms during this time, especially if symptoms were to return. PLAN: Facial pain MANAGEMENT: (You are the primary guardian of your health and facial pain. Keep track of all medications: This includes the reason for use, side effects and benefits.) MEDICATION TREATMENT: Abortive therapy: -Baclofen PRN. She is aware to not take in . Preventive therapy: -Magnesium. -Could consider nerve block with lidocaine only. -Referral to Neuro Obstetrics - Dr. Bean or Dr. Butt. Interval Headache History: Kierra Natarajan is a 34 year old year old female, with a history of facial pain, trigeminal neuralgia, obesity, ADHD, anxiety and depression following up today for facial pain. Since the last visit, the patient states that her facial pain has worsened. Facial Pain: - Recurrent episodes of facial pain, initially evaluated by Dr. Mukherjee and subsequently managed with baclofen, with benefit. - Recent exacerbation of symptoms, including severe pain on the right side of the head, ear, jaw, and teeth. - Episodes occur approximately every 3-4 days, lasting about 10 minutes, with one major episode per day. - Describes pain as excruciating with sensations of water feeling on the right side, numbness in the upper right teeth, and shoots of electricity into the teeth. - Pain episodes are accompanied by jerking movements and a sense of losing control over the right side of the neck, arm, and shoulder. - Experiences panic attacks during episodes, fearing facial drooping and stroke-like symptoms. - Pain episodes have led to significant lifestyle changes, including reduced physical activity and feeling homebound. - Reports intermittent double vision, evaluated by ophthalmology, with no identified cause. 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 - Has seen multiple specialists, including ENT and neurologists, with varying opinions on the cause of pain. - Currently using a bank guard for suspected TMJ-related issues. - Denies current attempts to become ; has a history of trying to conceive for over 11 years with no success. Trigeminal Neuralgia HPI Onset: August, - Pt reports right facial pain occurred in setting of stress (mother dx with dementia, and father septic at the onset). A few months prior to this, she started getting occipital nerve pain on the R. She did receive occipital nerve block at that time, helped, but then pain returned and then she started to have the facial pain in August. Pt also reports lymphadenopathy around time of onset, but no diagnosis. LAD resolved over 3-4 weeks. Side: Right Distribution: V2, V3 (mostly) and V1 Any pain on the side or back of head: Yes, she does get pain in the occipital area when severe and this can radiate to the front (lightening bolt, pressure). Can radiate down the R side of her neck at times. Character: burning, electric shock, zaps , shooting, talking, yawning Duration: Seconds, but will return over and over. Pain-free between episodes: Yes Triggers: (more content not included)...NormalPaulding County Hospital MAMMOGRAM DIAGNOSTIC TOMOSYNTHESIS BILATERALon [id number] MAMMOGRAM DIAGNOSTIC TOMOSYNTHESIS BILATERALThis is a summary report. The complete report is available in the patient's medical record. If you cannot access the medical record, please contact the sending organization for a detailed fax or copy. EXAMINATION: BI MAMMOGRAM DIAGNOSTIC TOMOSYNTHESIS BILATERAL CLINICAL HISTORY: Palpable lump @ 10 o'clock of the right nipple TECHNIQUE: Diagnostic digital mammogram study of both breasts was performed with 2D and 3D tomosynthesis imaging. Study was compared to the right breast ultrasound exam dated 03/03/2025. FINDINGS: Standard views bilaterally as well as coned-down compression views on the right and true lateral view on the right were obtained. Skin marker is placed on the right anteriorly in the area of the palpable lump. There is no evidence of dominant spiculated mass, grouped calcifications or skin thickening which would be suggestive of malignancy. A single benign-appearing calcification is noted on the right anteriorly. A few benign-appearing asymmetric densities are noted bilaterally likely related to focal fibroglandular tissue. There is suggestion of a small faint ringlike density measuring 2 mm in the right subareolar region which may represent a tiny oil cyst or other benign process. The finding could be artifactually created. Ultrasound study failed to convincingly demonstrate abnormality in this area. The finding is not felt to beacutely significant. Axillary lymph nodes are noted bilaterally which appear grossly unremarkable. IMPRESSION: No specific evidence of malignancy seen in either breast. There may be a tiny oil cyst or other benign process in the right subareolar region as described. The finding is not felt to be acutely significant. Ultrasound study failed to convincingly demonstrate abnormality in this area. BIRADS 2 - Benign Findings DENSITY: There are scattered areas of fibroglandular density. FOLLOW-UP: Routine Screening Mammogram Board Certified Radiologists. Accredited by the ACR and FDA. MAMMOGRAPHY IS VERY IMPORTANT TO YOUR HEALTH. THE [employer] GUIDELINES RECOMMEND THATWOMEN 40 YEARS OF AGE AND OLDER SHOULD HAVE A MAMMOGRAM EVERY YEAR. A REMINDER LETTER WILL BE SENT AT THE APPROPRIATE TIME. ELECTRONICALLY SIGNED BY: Bonilla aRmos M.D.NormalNot AvailableComment on above: Order Comment: U/S if indicatedBI US BREAST LIMITED RIGHTon [id number] US BREAST LIMITED RIGHTThis is a summary report. The complete report is available in the patient's medical record. If you cannot access the medical record, please contact the sending organization for a detailed fax or copy. Examination: BI US BREAST LIMITED RIGHT Reason for Study: breast lump Comparison: Diagnostic mammogram study of the breasts dated 03/03/2025. Technique: Right breast ultrasound study was performed with images obtained in the subareolar region to include area of clinically palpable lump. Comparison left subareolar images were obtained and included in the study. Findings: No obvious solid or cystic mass. No obvious solid vascular mass to suggest neoplasm. No obvious abnormal calcifications or vascularity. No obvious ductal dilatation. The suggested small benign-appearing area in the right subareolar region is not discretely identified likely due to its small size or the fact that it may have been artifactually created on mammogram. The mammographic finding is not felt to be acutely significant. Comparison images of the left subareolar region are grossly unremarkable. IMPRESSION: Impression: Right breast ultrasound study is grossly unremarkable. No convincing ends of neoplasm. When correlating the studies no convincing evidence of neoplasm. BI-RADS 2 ELECTRONICALLY SIGNED BY: Bonilla Ramos M.D.NormalNot AvailableTelemedicineon [id number] Kierra NATARAJAN 1990 F Date Provider Department Center 12/27/2024 [id number] Collins Family History Problem Relation Age of Onset Anxiety disorder Mother Arthritis Mother Depression Mother Alcohol abuse Father Cancer Father Alcohol abuse Sister Anxiety disorder Sister Arthritis Mother's Sister Arthritis Mother's Brother Arthritis Mother's Sister Family Status - Relation Status Age at Mother Father Sister Mother's Sister Mother's Brother Mother's Sister Level of Service:[address]015 [place] OFFICE/OUTPATIENT ESTABLISHED LOW [facility] 20 MIN Reason for Visit and Comments: Flu Symptoms [505] - Patient presents to be seen due to body aches, migraine, congestion. She states symptoms started last Friday.[facility] Todd [facility]* * *Final Report* * * DATE OF EXAM: Dec 14 2024 11:22AM [facility] 0295 - MRI BRAIN WO/W IVCON / PROCEDURE REASON: Right trigeminal neuralgia * * * * Physician Interpretation * * * * EXAMINATION: MRA BRAIN WO IVCON, MRI BRAIN WO/W IVCON CLINICAL HISTORY: Right trigeminal neuralgia. TECHNIQUE: Upper cranial nerve protocol imaging without and with gadolinium. Intracranial 3D ewem-ka-xvpwpo MRA with post-processing performed at the [facility] and 2D multiplanar and 3D maximum intensity projections were created, reviewed and archived. MR Contrast: Dotarem Contrast Dose: 20 cc Route of Administration: Intravenous MQ: MRAB_4 COMPARISON: Outside MRI of the brain 09/27/2024. RESULT: BRAIN: Acute Change: There is no restricted diffusion on this examination to suggest focal acute ischemia or pathologic brain parenchymal cellularity. Hemorrhage: No abnormal susceptibility artifact identified to suggest previous brain parenchymal hemorrhage within the knede-au-ajtz. Mass Lesion/ Mass Effect: No evidence of an intracranial mass or extra-axial fluid collection. No significant mass effect. Chronic Change: The white matter is within normal limits of signal intensity for age. Parenchyma: No significant volume loss for age. The brain parenchyma within the thaga-bq-lsfi is otherwise within normal limits of signal intensity and morphology. No abnormal brain parenchymal or meningeal enhancement. No abnormal cranial nerve enhancement. Ventricles: Normal caliber and morphology. Skull Base: Hypothalamic and pituitary region are grossly normal. Craniocervical junction is normal. No significant marrow replacement process. No gross vascular impingement of lower cranial nerves, no lower cranial nerve nodularity or gross thickening visible on the axial CISS sequence. Meckel's cave and cavernous sinus regions are grossly normal. No focal brainstem lesions. Vasculature: Major intracranial arterial structures, and dural venous sinuses show typical flow void, suggesting patency by spin echo criteria. Concordant appearance after gadolinium. Right transverse sinus is dominant. Other: Patchy ethmoid inflammatory mucosal thickening. Opacified solitary posterior right ethmoid air cell. Remaining paranasal sinus chambers are clear. Mastoid air cells and middle ear cavities are clear. Orbits are structurally unremarkable. INTRACRANIAL MRA: Distal internal carotid arteries are normally patent to the carotid terminus. Anterior circulation branch vessels are patent. No focal high-grade intracranial stenosis, vessel cutoff, filling defect, vascular malformation, or aneurysm. V4 segments are normally patent. Basilar artery is patent. Typical P1 segments. Smaller branch vessels are grossly open. No vessel cutoff, high-grade stenosis, vascular malformation, or aneurysm. Close approximation of the left and right V4 segments. (6:1). When viewed on the individual partitions, this may be an anatomic variant of proximal basilar fenestration, but there does appear to be separation of the distal vertebral artery lumen which may be fused at the adventitia. (4:35). DIVISION OF RADIOLOGYProvider, [facility] [place] - 12/14/2024 * * *Final Report* * * DATE OF EXAM: Dec 14 2024 11:22AM [facility] 0295 - MRI BRAIN WO/W IVCON / PROCEDURE REASON: Right trigeminal neuralgia * * * * Physician Interpretation * * * * EXAMINATION: MRA BRAIN WO IVCON, MRI BRAIN WO/W IVCON CLINICAL HISTORY: Right trigeminal neuralgia. TECHNIQUE: Upper cranial nerve protocol imaging without and with gadolinium. Intracranial 3D xaju-bf-irnzxd MRA with post-processing performed at the modality and 2D multiplanar and 3D maximum intensity projections were created, reviewed and archived. MR Contrast: Dotarem Contrast Dose: 20 cc Route of Administration: Intravenous MQ: MRAB_4 COMPARISON: Outside MRI of the brain 09/27/2024. RESULT: BRAIN: Acute Change: There is no restricted diffusion on this examination to suggest focal acute ischemia or pathologic brain parenchymal cellularity. Hemorrhage: No abnormal susceptibility artifact identified to suggest previous brain parenchymal hemorrhage within the nbybs-wz-jkmd. Mass Lesion/ Mass Effect: No evidence of an intracranial mass or extra-axial fluid collection. No significant mass effect. Chronic Change: The white matter is within normal limits of signal intensity for age. Parenchyma: No significant volume loss for age. The brain parenchyma within the hoxlp-ra-cfba is otherwise within normal limits of signal intensity and morphology. No abnormal brain parenchymal or meningeal enhancement. No abnormal cranial nerve enhancement. Ventricles: Normal caliber and morphology. Skull Base: Hypothalamic and pituitary region are grossly normal. Craniocervical junction is normal. No significant marrow replacement process. No gross vascular impingement of lower cranial nerves, no lower cranial nerve nodularity or gross thickening visible on the axial CISS sequence. Meckel's cave and cavernous sinus regions are grossly normal. No focal brainstem lesions. Vasculature: Major intracranial arterial structures, and dural venous sinuses show typical flow void, suggesting patency by spin echo criteria. Concordant appearance after gadolinium. Right transverse sinus is dominant. Other: Patchy ethmoid inflammatory mucosal thickening. Opacified solitary posterior right ethmoid air cell. Remaining paranasal sinus chambers are clear. Mastoid air cells and middle ear cavities are clear. Orbits are structurally unremarkable. INTRACRANIAL MRA: Distal internal carotid arteries are normally patent to the carotid terminus. Anterior circulation branch vessels are patent. No focal high-grade intracranial stenosis, vessel cutoff, filling defect, vascular malformation, or aneurysm. V4 segments are normally patent. Basilar artery is patent. Typical P1 segments. Smaller branch vessels are grossly open. No vessel cutoff, high-grade stenosis, vascular malformation, or aneurysm. Close approximation of the left and right V4 segments. (6:1). When viewed on the individual partitions, this may be an anatomic variant of proximal basilar fenestration, but there does appear to be separation of the distal vertebral artery lumen which may be fused at the adventitia. (4:35). IMPRESSION IMPRESSION: No acute brain findings. No mass effect or abnormal brain enhancement. No abnormal cranial nerve enhancement or mechanical impingement. No evidence for an infiltrative process at the skull base. Minor ethmoid inflammatory mucosal change. Normally patent intracranial arterial vasculature. No evidence for vascular malformation or aneurysm. 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 Sanitation Lead: PSCB Transcribe Date/Time: Dec 14 2024 11:24A Dictated by : EVELIA RUBIN MD This examination was interpreted and the report reviewed and electronically signed by: EVELIA RUBIN MD on Dec 14 2024 11:34AM EST [facility] [id number] BRAIN WO IVCON* * *Final Report* * * DATE OF EXAM: Dec 14 2024 11:06AM [facility]272 - MRA BRAIN WO IVCON / PROCEDURE REASON: Right trigeminal neuralgia * * * * Physician Interpretation * * * * EXAMINATION: MRA BRAIN WO IVCON, MRI BRAIN WO/W IVCON CLINICAL HISTORY: Right trigeminal neuralgia. TECHNIQUE: Upper cranial nerve protocol imaging without and with gadolinium. Intracranial 3D bkyh-as-tlmuqn MRA with post-processing performed at the modality and 2D multiplanar and 3D maximum intensity projections were created, reviewed and archived. MR Contrast: Dotarem Contrast Dose: 20 cc Route of Administration: Intravenous MQ: MRAB_4 COMPARISON: Outside MRI of the brain 09/27/2024. RESULT: BRAIN: Acute Change: There is no restricted diffusion on this examination to suggest focal acute ischemia or pathologic brain parenchymal cellularity. Hemorrhage: No abnormal susceptibility artifact identified to suggest previous brain parenchymal hemorrhage within the nbigt-bu-ivyh. Mass Lesion/ Mass Effect: No evidence of an intracranial mass or extra-axial fluid collection. No significant mass effect. Chronic Change: The white matter is within normal limits of signal intensity for age. Parenchyma: No significant volume loss for age. The brain parenchyma within the plhnu-yl-zebq is otherwise within normal limits of signal intensity and morphology. No abnormal brain parenchymal or meningeal enhancement. No abnormal cranial nerve enhancement. Ventricles: Normal caliber and morphology. Skull Base: Hypothalamic and pituitary region are grossly normal. Craniocervical junction is normal. No significant marrow replacement process. No gross vascular impingement of lower cranial nerves, no lower cranial nerve nodularity or gross thickening visible on the axial CISS sequence. Meckel's cave and cavernous sinus regions are grossly normal. No focal brainstem lesions. Vasculature: Major intracranial arterial structures, and dural venous sinuses show typical flow void, suggesting patency by spin echo criteria. Concordant appearance after gadolinium. Right transverse sinus is dominant. Other: Patchy ethmoid inflammatory mucosal thickening. Opacified solitary posterior right ethmoid air cell. Remaining paranasal sinus chambers are clear. Mastoid air cells and middle ear cavities are clear. Orbits are structurally unremarkable. INTRACRANIAL MRA: Distal internal carotid arteries are normally patent to the carotid terminus. Anterior circulation branch vessels are patent. No focal high-grade intracranial stenosis, vessel cutoff, filling defect, vascular malformation, or aneurysm. V4 segments are normally patent. Basilar artery is patent. Typical P1 segments. Smaller branch vessels are grossly open. No vessel cutoff, high-grade stenosis, vascular malformation, or aneurysm. Close approximation of the left and right V4 segments. (6:1). When viewed on the individual partitions, this may be an anatomic variant of proximal basilar fenestration, but there does appear to be separation of the distal vertebral artery lumen which may be fused at the adventitia. (4:35). IMPRESSION: No acute brain findings. No mass effect or abnormal brain enhancement. No abnormal cranial nerve enhancement or mechanical impingement. No evidence for an infiltrative process at the skull base. Minor ethmoid inflammatory mucosal change. Normally patent intracranial arterial vasculature. No evidence for vascular malformation or aneurysm. 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 Sanitation Lead: PSCB Transcribe Date/Time: Dec 14 2024 11:24A Dictated by : EVELIA RUBIN MD This examination was interpreted and the report reviewed and electronically signed by: EVELIA RUBIN MD on Dec 14 2024 11:34AM EST [id number] [facility] Head vessels WO contraston 12-14-2024* * *Final Report* * * DATE OF EXAM: Dec 14 2024 11:06AM [facility] 0272 - MRA BRAIN WO IVCON / PROCEDURE REASON: Right trigeminal neuralgia * * * * Physician Interpretation * * * * EXAMINATION: MRA BRAIN WO IVCON, MRI BRAIN WO/W IVCON CLINICAL HISTORY: Right trigeminal neuralgia. TECHNIQUE: Upper cranial nerve protocol imaging without and with gadolinium. Intracranial 3D tmxf-xo-jpigka MRA with post-processing performed at the modality and 2D multiplanar and 3D maximum intensity projections were created, reviewed and archived. MR Contrast: Dotarem Contrast Dose: 20 cc Route of Administration: Intravenous MQ: MRAB_4 COMPARISON: Outside MRI of the brain 09/27/2024. RESULT: BRAIN: Acute Change: There is no restricted diffusion on this examination to suggest focal acute ischemia or pathologic brain parenchymal cellularity. Hemorrhage: No abnormal susceptibility artifact identified to suggest previous brain parenchymal hemorrhage within the ymfki-wl-ezuv. Mass Lesion/ Mass Effect: No evidence of an intracranial mass or extra-axial fluid collection. No significant mass effect. Chronic Change: The white matter is within normal limits of signal intensity for age. Parenchyma: No significant volume loss for age. The brain parenchyma within the biqza-us-ykqe is otherwise within normal limits of signal intensity and morphology. No abnormal brain parenchymal or meningeal enhancement. No abnormal cranial nerve enhancement. Ventricles: Normal caliber and morphology. Skull Base: Hypothalamic and pituitary region are grossly normal. Craniocervical junction is normal. No significant marrow replacement process. No gross vascular impingement of lower cranial nerves, no lower cranial nerve nodularity or gross thickening visible on the axial CISS sequence. Meckel's cave and cavernous sinus regions are grossly normal. No focal brainstem lesions. Vasculature: Major intracranial arterial structures, and dural venous sinuses show typical flow void, suggesting patency by spin echo criteria. Concordant appearance after gadolinium. Right transverse sinus is dominant. Other: Patchy ethmoid inflammatory mucosal thickening. Opacified solitary posterior right ethmoid air cell. Remaining paranasal sinus chambers are clear. Mastoid air cells and middle ear cavities are clear. Orbits are structurally unremarkable. INTRACRANIAL MRA: Distal internal carotid arteries are normally patent to the carotid terminus. Anterior circulation branch vessels are patent. No focal high-grade intracranial stenosis, vessel cutoff, filling defect, vascular malformation, or aneurysm. V4 segments are normally patent. Basilar artery is patent. Typical P1 segments. Smaller branch vessels are grossly open. No vessel cutoff, high-grade stenosis, vascular malformation, or aneurysm. Close approximation of the left and right V4 segments. (6:1). When viewed on the individual partitions, this may be an anatomic variant of proximal basilar fenestration, but there does appear to be separation of the distal vertebral artery lumen which may be fused at the adventitia. (4:35). DIVISION OF RADIOLOGYProvider, [facility] [place] - 12/14/2024 * * *Final Report* * * DATE OF EXAM: Dec 14 2024 11:06AM [facility] 0272 - MRA BRAIN WO IVCON / PROCEDURE REASON: Right trigeminal neuralgia * * * * Physician Interpretation * * * * EXAMINATION: MRA BRAIN WO IVCON, MRI BRAIN WO/W IVCON CLINICAL HISTORY: Right trigeminal neuralgia. TECHNIQUE: Upper cranial nerve protocol imaging without and with gadolinium. Intracranial 3D ymoh-yt-lbhhoc MRA with post-processing performed at the modality and 2D multiplanar and 3D maximum intensity projections were created, reviewed and archived. MR Contrast: Dotarem Contrast Dose: 20 cc Route of Administration: Intravenous MQ: MRAB_4 COMPARISON: Outside MRI of the brain 09/27/2024. RESULT: BRAIN: Acute Change: There is no restricted diffusion on this examination to suggest focal acute ischemia or pathologic brain parenchymal cellularity. Hemorrhage: No abnormal susceptibility artifact identified to suggest previous brain parenchymal hemorrhage within the conqi-el-tkck. Mass Lesion/ Mass Effect: No evidence of an intracranial mass or extra-axial fluid collection. No significant mass effect. Chronic Change: The white matter is within normal limits of signal intensity for age. Parenchyma: No significant volume loss for age. The brain parenchyma within the kfjae-mk-pezz is otherwise within normal limits of signal intensity and morphology. No abnormal brain parenchymal or meningeal enhancement. No abnormal cranial nerve enhancement. Ventricles: Normal caliber and morphology. Skull Base: Hypothalamic and pituitary region are grossly normal. Craniocervical junction is normal. No significant marrow replacement process. No gross vascular impingement of lower cranial nerves, no lower cranial nerve nodularity or gross thickening visible on the axial CISS sequence. Meckel's cave and cavernous sinus regions are grossly normal. No focal brainstem lesions. Vasculature: Major intracranial arterial structures, and dural venous sinuses show typical flow void, suggesting patency by spin echo criteria. Concordant appearance after gadolinium. Right transverse sinus is dominant. Other: Patchy ethmoid inflammatory mucosal thickening. Opacified solitary posterior right ethmoid air cell. Remaining paranasal sinus chambers are clear. Mastoid air cells and middle ear cavities are clear. Orbits are structurally unremarkable. INTRACRANIAL MRA: Distal internal carotid arteries are normally patent to the carotid terminus. Anterior circulation branch vessels are patent. No focal high-grade intracranial stenosis, vessel cutoff, filling defect, vascular malformation, or aneurysm. V4 segments are normally patent. Basilar artery is patent. Typical P1 segments. Smaller branch vessels are grossly open. No vessel cutoff, high-grade stenosis, vascular malformation, or aneurysm. Close approximation of the left and right V4 segments. (6:1). When viewed on the individual partitions, this may be an anatomic variant of proximal basilar fenestration, but there does appear to be separation of the distal vertebral artery lumen which may be fused at the adventitia. (4:35). IMPRESSION IMPRESSION: No acute brain findings. No mass effect or abnormal brain enhancement. No abnormal cranial nerve enhancement or mechanical impingement. No evidence for an infiltrative process at the skull base. Minor ethmoid inflammatory mucosal change. Normally patent intracranial arterial vasculature. No evidence for vascular malformation or aneurysm. 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 Sanitation Lead: PSCB Transcribe Date/Time: Dec 14 2024 11:24A Dictated by : EVELIA RUBIN MD This examination was interpreted and the report reviewed and electronically signed by: EVELIA RUBIN MD on Dec 14 2024 11:34AM [facility] [id number] BRAIN WO/W IVCON* * *Final Report* * * DATE OF EXAM: Dec 14 2024 11:22AM [facility] 0295 - MRI BRAIN WO/W IVCON / PROCEDURE REASON: Right trigeminal neuralgia * * * * Physician Interpretation * * * * EXAMINATION: MRA BRAIN WO IVCON, MRI BRAIN WO/W IVCON CLINICAL HISTORY: Right trigeminal neuralgia. TECHNIQUE: Upper cranial nerve protocol imaging without and with gadolinium. Intracranial 3D jnnu-ye-ckjofw MRA with post-processing performed at the modality and 2D multiplanar and 3D maximum intensity projections were created, reviewed and archived. MR Contrast: Dotarem Contrast Dose: 20 cc Route of Administration: Intravenous MQ: MRAB_4 COMPARISON: Outside MRI of the brain 09/27/2024. RESULT: BRAIN: Acute Change: There is no restricted diffusion on this examination to suggest focal acute ischemia or pathologic brain parenchymal cellularity. Hemorrhage: No abnormal susceptibility artifact identified to suggest previous brain parenchymal hemorrhage within the dtknb-eh-nnnw. Mass Lesion/ Mass Effect: No evidence of an intracranial mass or extra-axial fluid collection. No significant mass effect. Chronic Change: The white matter is within normal limits of signal intensity for age. Parenchyma: No significant volume loss for age. The brain parenchyma within the tmbpt-tr-jdws is otherwise within normal limits of signal intensity and morphology. No abnormal brain parenchymal or meningeal enhancement. No abnormal cranial nerve enhancement. Ventricles: Normal caliber and morphology. Skull Base: Hypothalamic and pituitary region are grossly normal. Craniocervical junction is normal. No significant marrow replacement process. No gross vascular impingement of lower cranial nerves, no lower cranial nerve nodularity or gross thickening visible on the axial CISS sequence. Meckel's cave and cavernous sinus regions are grossly normal. No focal brainstem lesions. Vasculature: Major intracranial arterial structures, and dural venous sinuses show typical flow void, suggesting patency by spin echo criteria. Concordant appearance after gadolinium. Right transverse sinus is dominant. Other: Patchy ethmoid inflammatory mucosal thickening. Opacified solitary posterior right ethmoid air cell. Remaining paranasal sinus chambers are clear. Mastoid air cells and middle ear cavities are clear. Orbits are structurally unremarkable. INTRACRANIAL MRA: Distal internal carotid arteries are normally patent to the carotid terminus. Anterior circulation branch vessels are patent. No focal high-grade intracranial stenosis, vessel cutoff, filling defect, vascular malformation, or aneurysm. V4 segments are normally patent. Basilar artery is patent. Typical P1 segments. Smaller branch vessels are grossly open. No vessel cutoff, high-grade stenosis, vascular malformation, or aneurysm. Close approximation of the left and right V4 segments. (6:1). When viewed on the individual partitions, this may be an anatomic variant of proximal basilar fenestration, but there does appear to be separation of the distal vertebral artery lumen which may be fused at the adventitia. (4:35). IMPRESSION: No acute brain findings. No mass effect or abnormal brain enhancement. No abnormal cranial nerve enhancement or mechanical impingement. No evidence for an infiltrative process at the skull base. Minor ethmoid inflammatory mucosal change. Normally patent intracranial arterial vasculature. No evidence for vascular malformation or aneurysm. 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 Sanitation Lead: [facility] Transcribe Date/Time: Dec 14 2024 11:24A Dictated by : EVELIA RUBIN MD This examination was interpreted and the report reviewed and electronically signed by: EVELIA RUBIN MD on Dec 14 2024 11:34AM EST [id number] Southeastern Medical Center Panel Informationon [id number]: No acute brain findings. No mass effect or abnormal brain enhancement. No abnormal cranial nerve enhancement or mechanical impingement. No evidence for an infiltrative process at the skull base. Minor ethmoid inflammatory mucosal change. Normally patent intracranial arterial vasculature. No evidence for vascular malformation or aneurysm. 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 Sanitation Lead: [facility] Transcribe Date/Time: Dec 14 2024 11:24A Dictated by : EVELIA RUBIN MD This examination was interpreted and the report reviewed and electronically signed by: EVELIA RUBIN MD on Dec 14 2024 11:34AM [facility] DIVISION OF RADIOLOGYRadiology Study observation (narrative)[facility] Panel InformationOrdered By: Ccf Provider on [id number] ClinicCNOVon 19-35-3434QIFUSicyrl Visit ([facility]) KIERRA NATARAJAN ([id number]) 1990 F Date Time Provider Department 11/23/24 11:20 AM VINCENZO MUKHERJEE [facility] During your visit today, we recorded the following information about you: Temperature Pulse Blood pressure Weight 98.4 degrees 82/minute 146/72 112.8 kg Height 1.755 m Vincenzo Mukherjee MD 11/23/2024 1:44 PM Signed HEADACHE MEDICINE / FACIAL PAIN MEDICINE November 23, 2024 11:20 AM Trigeminal Neuralgia HPI Onset: August, - Pt reports right facial pain occurred in setting of stress (mother dx with dementia, and father septic at the onset).. Pt also reports lymphadenopathy around time of onset, but no diagnosis. LAD resolved over 3-4 weeks. Her facial pain has improved over time, but episodes still occur twice daily at minimum. Side: right Distribution: V2, V3 and V1 - Majority V2, V3. Any pain on the side or back of head: Yes Character: burning and aching Duration: Episodes would occur seconds to minutes, but at times could last 2-3 hours. Pain-free between episodes: Yes Triggers: eating/chewing and brushing teeth Sensory abnormalities: Yes - she reports RIGHT numbness at times. Initial benefit from Tegretol/Trileptal: Carbamazepine/Oxcarbazepine: helpful for the pain, but did not entirely elayne it. 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 No past medical history on file. No past surgical history on file. Current Outpatient Medications Medication Sig metFORMIN ER (GLUCOPHAGE XR) 500 mg 24 hr tablet Take 500 mg by mouth once daily. hydrOXYzine HCl (ATARAX) 10 mg tablet Take 10 mg by mouth as needed. No current facility-administered medications for this visit. ALLERGIES Allergen Reactions Dextromethorphan-Gu* Unknown MRI-Brain 09/27/24: IMPRESSION, MRI Trigeminal: 1. No abnormalities of the cerebellopontine angles. No abnormal enhancement or mass lesion along the course of the trigeminal nerve by MRI. 2. Multifocal bilateral small cervical lymph nodes and parotid enhancing lesions, bilateral, nonspecific. ENT consultation is recommended. These may be infectious, inflammatory or less likely malignant. MRI-Brain 05/13/24: IMPRESSION: Normal appearance of cranial nerves VII/VIII. No cerebellopontine angle or internal auditory canal mass. PHYSICAL EXAMINATION 11/23/24 1042 BP: 146/72 Pulse: 82 Temp: 36.9 ?C (98.4 ?F) Weight: 112.8 kg (248 lb 9.1 oz) Height: 175.5 cm (5' 9.09 ) General appearance: Well appearing, alert, in no acute distress, well-hydrated, well nourished. Head: Normocephalic, no masses, lesions, tenderness or abnormalities Eyes: Anicteric sclera. Pupils are equally round and reactive to light. Extraocular movements are intact. Oropharynx: Lips, mucosa, and tongue normal, teeth and gums normal, oropharynx normal Neck: Supple, no adenopathy; Lungs: Unlabored on room air Extremities: No deformities, edema, skin discoloration, clubbing or cyanosis. Good capillary refill. Musculoskeletal: No joint swelling, deformity, or tenderness Peripheral pulses: Capillary refill <2secs, strong peripheral pulses Neuro: Negative findings: speech normal, mental status intact, cranial nerves 2-12 intact, muscle tone normal, muscle strength normal, finger to nose normal, reflexes normal and symmetric Kierra was seen today for consult. Diagnoses and all orders for this visit: Right trigeminal neuralgia - MRI BRAIN WO/W IVCON; Future - iv contrast (will be provided with radiology test); MRI Brain Inject, intravenously, once for 1 dose.No IV access, insert saline lock prior to beginning of sedation, infusion, injection of imaging exam.Discontinue saline lock post exam. If Pt. 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 She needs MRI-Brain, MRA-Brain to r/o vascular loop contacting the RIGHT TN. Previous neuroimaging has effectively excluded other secondary reasons for the TN. ? Component of TMJ causing the pain--she notes history of bruxism. She was improved with use of carbamazepine and oxcarbazepine, but did not tolerate side-effects. She declines new med at this time due to history of intolerance. If there is no reason for the pain on the upcoming MRI, then would r/o TMJ as cause vs idiopathi (more content not included)...NormalW[facility]36on [id number] to return callNormalUniversity [facility]29on [id number] by: ROHIT LEOS on: 11/02/2024 11:31 AM Modules accepted: OrdersNormalUniversity [facility]36on 11-02-2024 36Her calcium was low. Most common cause of that is vit D def. Recommend start D3 4000 U daily and then in 2 months repeating calcium level with Vit D and Mag level. We can order a CXR.[facility]36Patient updated. She is wondering how lab results are. Scanned into Media. Also states she has been experiencing a constant dull pain in her back. Requesting chest xray to make sure her lungs are ok.[facility]36on [id number] the flonase. Add some nasal saline spray or vasoline to see if this helps the nose bleeds.[facility]36That sounds good. Yes, stop flonase and see ENT.[facility]36Patient called back and states the oxcabazepine seems to be working for the most part however her lymph nodes are still a little swollen. She would like to stay on the same dose instead of increasing it because of the side effects. Patient will discuss meds with docs at [facility] on 11/23/24. She also sees [facility] ENT on Thursday 11/01. She would also like to stop the flonase because it is giving her nose bleeds. Please adviseNormalUniversity of [address] asking pt to call backNormalUniversity of [address] informing ptNormalUniversity of [address] 10-28-2024 36Good. Lymphadenopathy improving with switch to trileptal? Does she feel like its covering the trigeminal neuralgia? Consider increasing the trileptal till neurology apptNormalUniversity of [facility]36Pt called and stated that her right side seems to be more numb and drooping more. She states she has been trying to get an appointment with [facility] but has not heard back from them.She did state that her nerve pain has gotten better, but it comes and goes still. She denies having chest pain., SOB other than what she has been experiencing and not having heart palpitations. I was able to call [facility] and get her scheduled for an Appointment with Dr Mukherjee in [place], [place]. Pt was notified of appt and given all information for appt. Dr. Mukherjee November 23 at 11:20 [id number] [place] [address] [phone] of [facility] Vwnpuh48Nk cancelled the appointment that she has with you today, She received a call about an opening at the [facility] for this afternoon in Neurology; that she has been waiting for. She will reschedule at a later time. Pt wants to make sure you know why she has cancelled today. FYINormalUniversMercy Health Fairfield HospitalTephone [phone] Kierra NATARAJAN 1990 F Date Provider Department Center 10/28/2024 ROHIT TIRADO PRIM Fallen Timbe Family History Problem Relation Age of Onset Anxiety disorder Mother Arthritis Mother Depression Mother Alcohol abuse Father Cancer Father Alcohol abuse Sister Anxiety disorder Sister Arthritis Mother's Sister Arthritis Mother's Brother Arthritis Mother's Sister Family Status - Relation Status Age at Mother Father Sister Mother's Sister Mother's Brother Mother's Sister Reason for Visit and Comments: Referral [825][place] [address]on [id number] the 600 mg BID is similar to the tegretol level that she is currently on.[address] [id number] called and said she picked up her Trileptal. She thought it was supposed to be 300mg 2 times a day instead of 600mg 1 time a day.[facility] [id number] Kierra NATARAJAN 1990 F Date Provider Department Center 10/15/2024 ROHIT TIRADO [facility] [place] Family History Problem Relation Age of Onset Anxiety disorder Mother Arthritis Mother Depression Mother Alcohol abuse Father Cancer Father Alcohol abuse Sister Anxiety disorder Sister Arthritis Mother's Sister Arthritis Mother's Brother Arthritis Mother's Sister Family Status - Relation Status Age at Mother Father Sister Mother's Sister Mother's Brother Mother's SisterNormalUniversMercy Health Fairfield HospitalOffice Visiton [id number]-up [id number] Kierra NATARAJAN 1990 F Date Provider Department Center 10/14/2024 ROHIT TIRADO PRIM Fallen Timbe Family History Problem Relation Age of Onset Anxiety disorder Mother Arthritis Mother Depression Mother Alcohol abuse Father Cancer Father Alcohol abuse Sister Anxiety disorder Sister Arthritis Mother's Sister Arthritis Mother's Brother Arthritis Mother's Sister Family Status - Relation Status Age at Mother Father Sister Mother's Sister Mother's Brother Mother's Sister Level of Service:53892 [place] OFFICE/OUTPATIENT ESTABLISHED MOD [facility] 30 MIN Reason for Visit and Comments: Follow-up [756810] - Patient has first consult with hematology tomorrow with Dr. Ariza at [facility] Patent still has swollen lymphoneds. ENT prescribed antibiotic, last dose today. [facility] contrast Todd 34-75-6856[place] [address] CT Scan Report Signed Patient: KIERRA NATARAJAN MR#: [id number] : 1990 Acct:[id number] Age/Sex: 33 / F ADM Date: 10/06/24 Loc: CT Attending Dr: Sudheer hCacon M.D. Ordering Physician: Sudheer Chacon M.D. Date of Service: 10/06/24 Procedure(s): CT soft tissue neck w con Accession Number(s): [id number] cc: Physician,Non-Staff Alexi [place] [address] Patient Name: KIERRA NATARAJAN MRN: [id number] date: 1990 Sex: F Assigned Patient Location: CT Current Patient Location: Accession/Order Number: [id number] Exam Date: 10/06/2024 14:20 Report Date: 10/07/2024 06:38 At the request of: SUDHEER CHACON Procedure: CT soft tissue neck w con EXAMINATION: CT soft tissue neck w con HISTORY: Lymphadenopathy Of Left Cervical Region COMPARISON: No relevant comparison available. TECHNIQUE: Axial, Coronal, and Sagittal CT images created with IV contrast. Dose reduction techniques were achieved by using automated exposure control and/or adjustment of mA and/or kV according [...] abnormality of the parotid, submandibular, and thyroid glands. LYMPH NODES: No pathological-appearing or enlarged lymph nodes. VASCULATURE: No suspicious abnormality. BONES: No significant osseous lesions. OTHER: No additional imaging findings. CT/CT soft tissue neck w con IMPRESSION: 1. Skin surface marker localizing patient's palpable area overlies the right parotid gland; no suspicious findings. 2. Multiple small lymph nodes within the neck; no mass, fluid collection, or suspicious findings. Electronically authenticated by: ERMELINDA PAIGE Date: 10/07/2024 06:38 Dictated By: Ermelinda Paige M.D. Signed By: 10/07/24639 DD/ 7 TD/TT: Sanitation Lead:TBHRadiology, Radiologist, MD - 10/07/2024 [place] [address] CT Scan Report Signed Patient: KIERRA NATARAJAN MR#: [id number] : 1990 Acct:[id number] Age/Sex: 33 / F ADM Date: 10/06/24 Loc: CT Attending Dr: Sudheer Chacon M.D. Ordering Physician: Sudheer Chacon M.D. Date of Service: 10/06/24 Procedure(s): CT soft tissue neck w con Accession Number(s): [id number] cc: Physician,Non-Staff Alexi [place] [address] Patient Name: KIERRA NATARAJAN MRN: [facility]:[id number] date: 1990 Sex: F Assigned Patient Location: CT Current Patient Location: Accession/Order Number: [id number] Exam Date: 10/06/2024 14:20 Report Date: 10/07/2024 06:38 At the request of: SUDHEER CHACON Procedure: CT soft tissue neck w con EXAMINATION: CT soft tissue neck w con HISTORY: Lymphadenopathy Of Left Cervical Region COMPARISON: No relevant comparison available. TECHNIQUE: Axial, Coronal, and Sagittal CT images created with IV contrast. Dose reduction techniques were achieved by using automated exposure control and/or adjustment of mA and/or kV according [...] abnormality of the parotid, submandibular, and thyroid glands. LYMPH NODES: No pathological-appearing or enlarged lymph nodes. VASCULATURE: No suspicious abnormality. BONES: No significant osseous lesions. OTHER: No additional imaging findings. CT/CT soft tissue neck w con IMPRESSION: 1. Skin surface marker localizing patient's palpable area overlies the right parotid gland; no suspicious findings. 2. Multiple small lymph nodes within the neck; no mass, fluid collection, or suspicious findings. Electronically authenticated by: ERMELINDA PAIGE Date: 10/07/2024 06:38 Dictated By: Ermelinda Paige M.D. Signed By: 10/07/24639 DD/ 7 TD/TT: Sanitation Lead: NOMAlireza HealthcareRadiology Study observation (narrative)NOM HealthcareCT Neck W contrast IVOrdered By: Radiologist Radiology on 91-70-6610F[facility] Work Phone: Office Visiton [phone]-up [id number] Kierra NATARAJAN 1990 F Date Provider Department Center 10/06/2024 37274-[facility]EDBACE COKER [facility]a [facility] Family History Problem Relation Age of Onset Anxiety disorder Mother Arthritis Mother Depression Mother Alcohol abuse Father Cancer Father Alcohol abuse Sister Anxiety disorder Sister Arthritis Mother's Sister Arthritis Mother's Brother Arthritis Mother's Sister Family Status - Relation Status Age at Mother Father Sister Mother's Sister Mother's Brother Mother's Sister Level of Service:85395 [place] OFFICE/OUTPATIENT ESTABLISHED LOW MDM 20 MIN Reason for Visit and Comments: would like hemotology referral [Other] - Patient was seen by ent and they advised that she get a hematology oncology referral due to lymph nodes swelling on head and neck. ENT questioned finding on MRI of headNormalUniversity of [facility] w/ Auto Diffon 80-16-1634Cldszzgja/100 WBC (Bld)0.3 %Normal0.0-2.0NOMS HealthcareComment on above:Performed By: #### [id number] #### [facility] [address] [place] [address] 73344Dfxvutqwe/Leukocytes Auto (Bld) [Pure # fraction]0.0 E9/LNormal 0.0-0.2FOhioHealth Doctors HospitalComment on above:Performed By: #### [id number] #### [facility] [address] [place] [address] 37592Jadrocidwnw (Bld) [#/Vol]0.2 E9/LNormal0.0-0.5FOhioHealth Doctors HospitalComment on above:Performed By: #### [id number] #### [facility] [address] [place] [address] 02856Fyghqtbhdqz/100 WBC (Bld)4.5 %Normal0.0-8.0[facility] Memorial HospitalComment on above:Performed By: #### [id number] #### [facility] [address] [place] [address] 82941Xathpiqkwru distribution width (RBC) [Ratio]13.3 %Normal 10.9-14.2NOMS HealthcareComment on above:Performed By: #### [id number] #### [facility] [address] [place] [address] 71275Eabuwhqdsj (Bld) [Volume fraction]39.3 %Nwolha32.0-46.0NOMS HealthcareComment on above:Performed By: #### [id number] #### [facility] [address] [place] [address] 73114Otejnjpeez (Bld) [Mass/Vol]13.7 g/mDGjwvvq50.0-16.0[facility] Memorial HospitalComment on above:Performed By: #### [id number] #### [facility] [address] [place] [address] 57479Oyxqgqgruce (Bld) [#/Vol]0.8 E9/LLow1.0-4.0[facility] Memorial HospitalComment on above:Performed By: #### [id number] #### [facility] [address] [place] [address] 35091Fdsdmvrbfdx/100 WBC (Bld)14.6 %Nmogzn25.0-50.0N[facility] Healthcare Comment on above:Performed By: #### [id number] #### [facility] [address] [place] [address] 94373TFR (RBC) [Entitic mass]29.8 ajDhouzj30.0-34.0[facility] Memorial HospitalComment on above:Performed By: #### [id number] #### [facility] [address] [place] [address] 05556ENFO (RBC) [Mass/Vol]34.8 g/kZMequgt24.4-36.0[facility] Memorial HospitalComment on above:Performed By: #### [id number] #### [facility] [address] [place] [address] 54734AIW (RBC) [Entitic vol]85.7 iFLemwfb27.0-100.0[facility] HospitalComment on above:Performed By: #### [id number] #### [facility] [address] [place] [address] 82883Tdhtpzizx (Bld) [#/Vol]0.4 E9/LNormal0.2-1.0[facility] Memorial HospitalComment on above:Performed By: #### [id number] #### [facility] [address] [place] [address] 41765Wdbsoabwjqf (Bld) [#/Vol]3.9 E9/LNormal2.0-7.5FOhioHealth Doctors HospitalComment on above:Performed By: #### [id number] #### [facility] [address] [place] [address] 27950Mxklubidmew/100 WBC (Bld)72.6 %Atgopq80.0-75.0N[facility] Healthcare Comment on above:Performed By: #### [id number] #### [facility] [address] [place] [address] 56243Puewnyyi mean volume (Bld) [Entitic vol]8.8 fLNormal6.4-10.8 [facility] HealthcareComment on above:Performed By: #### [id number] #### [facility] [address] [place] [address] 32124Ejtbiqrpk (Bld) [#/Vol]231.0 E9/ODvxokd375.0-500.0[facility] Memorial HospitalComment on above:Performed By: #### [id number] #### [facility] [address] [place] [address] 05831JKS (Bld) [#/Vol]4.6 E12/LNormal4.3-5.9[facility] Memorial HospitalComment on above:Performed By: #### [id number] #### [facility] [address] [place] [address] 46101SQH corrected for nucl RBC Auto (Bld) [#/Vol]5.4 E9/LNormal 4.0-11.0[facility] Memorial HospitalComment on above:Performed By: #### [id number] #### [facility] [address] [place] [address] 02713LDBJFHTCBEukfkrz By: SYSTEM SYSTEM on 92-59-6419LKF [Mass/Vol] 0.7 mg/dLNormal<=1.9mg/dLRemisol ChemCRPon 12-46-5586IBP [Mass/Vol]0.7 mg/dL Normal<=1.9[facility] Memorial HospitalComment on above:Performed By: #### [id number] #### [facility] [address] [place] [address] 15455UBKB CBC W/ AUTO DIFFon 32-38-3249BKEFVSUUSNT/100 LEUKOCYTES:NFR:PT:BLD:QN:AUTOMATED COUNT4.5 %0.0 - 8.0 %[facility] EOSINOPHILS:NCNC:PT:BLD:QN:0.2NOMS [facility] BASOPHILS/LEUKOCYTES:NFR.DF:PT:BLD:QN:AUTOMATED VEWVZ1ZWPT [facility] ERYTHROCYTE MEAN CORPUSCULAR HEMOGLOBIN CONCENTRATION:MCNC:PT:RBC:QN34.8NOMercy Hospital St. Louis ERYTHROCYTE MEAN CORPUSCULAR HEMOGLOBIN:ENTMASS:PT:RBC:QN29.8 pg 27.0 - 34.0 pgScotland County Memorial Hospital ERYTHROCYTE MEAN CORPUSCULAR VOLUME:ENTVOL:PT:RBC:QN:AUTOMATED COUNT85.7 fL80.0 - 100.0 fLScotland County Memorial Hospital ERYTHROCYTES:NCNC:PT:BLD:QN:AUTOMATED COUNT4.6[facility] HEMOGLOBIN:MCNC:PT:BLD:QN:13.7NOMercy Hospital St. Louis LEUKOCYTES5.4[facility] MONOCYTES:NCNC:PT:BLD:QN:AUTOMATED COUNT0.4[facility] NEUTROPHILS:NCNC:PT:BLD:QN:AUTOMATED COUNT3.9[facility] PLATELETS:NCNC:PT:BLD:QN:AUTOMATED LAYWZ158IRGHMercy Hospital JoplinInterpretation and review of laboratory resultsAbnormalMercy Hospital JoplinLYMPHOCYTES:NCNC:PT:BLD:QN: 0.8LowMercy Hospital JoplinOriginal Ordering Provider: MD Sudheer Bowen [facility]idalHealth NanticokeHEMATOLOGYOrdered By: SYSTEM SYSTEM on 57-52-4244Xsjmjcfau/100 WBC (Bld)0.3 %Normal0.0 - 2.0 %Remisol HemeBasophils/Leukocytes Auto (Bld) [Pure # fraction]0.0 E9/LNormal0.0 - 0.2 E9/LRemisol HemeEosinophils (Bld) [#/Vol]0.2 E9/LNormal0.0 - 0.5 E9/LRemisol HemeEosinophils/100 WBC (Bld)4.5 %Normal0.0 - 8.0 %Remisol HemeErythrocyte distribution width (RBC) [Ratio]13.3 %Phbfmo02.9 - 14.2 %Remisol HemeHematocrit (Bld) [Volume fraction]39.3 %Lkhebw05.0 - 46.0 % Remisol HemeHemoglobin (Bld) [Mass/Vol]13.7 g/kMJejyxb18.0 - 16.0 gm/dLRemisol HemeLymphocytes (Bld) [#/Vol]0.8 E9/LLow1.0 - 4.0 E9/LRemisol Heme Lymphocytes/100 WBC (Bld)14.6 %Gdzwjd42.0 - 50.0 %Remisol HemeMCH (RBC) [Entitic mass]29.8 tmDyuyrs25.0 - 34.0 pgRemisol HemeMCHC (RBC) [Mass/Vol]34.8 g/dL Ypjysc47.4 - 36.0 gm/dLRemisol HemeMCV (RBC) [Entitic vol]85.7 gURkuxkx48.0 - 100.0 fLRemisol HemeMonocytes (Bld) [#/Vol]0.4 E9/LNormal0.2 - 1.0 E9/LRemisol HemeMonocytes/100 WBC (Bld)8.0 %Normal4.0 - 14.0 %Remisol HemeNeutrophils (Bld) [#/Vol]3.9 E9/LNormal2.0 - 7.5 E9/LRemisol HemeNeutrophils/100 WBC (Bld)72.6 % Jyaoxt40.0 - 75.0 %Remisol HemePlatelet mean volume (Bld) [Entitic vol]8.8 fL Normal6.4 - 10.8 fLRemisol HemePlatelets (Bld) [#/Vol]231.0 E9/GTneyve365.0 - 500.0 E9/LRemisol HemeRBC (Bld) [#/Vol]4.6 E12/LNormal4.3 - 5.9 E12/LRemisol HemeWBC corrected for nucl RBC Auto (Bld) [#/Vol]5.4 E9/LNormal4.0 - 11.0 E9/L Remisol HemeHEMATOLOGYOrdered By: Iram Lofton on 58-48-7735PUI (Bld) [Velocity]11 mm/hNormal0 - 34 mm/hrFT HemeAutoSSSed Rate Automatedon 55-68-4146VFL (Bld) [Velocity]11 mm/hNormal0-34[facility] Comment on above:Performed By: #### [id number] #### [facility] [address] [place] [address] 04302Tbdusaw Outreachon 90-01-7693Ogefeki [id number] Kierra NATARAJAN 1990 F Date Provider Department Center 09/28/2024 69607-NNFORQMARÍA ELENA GALEANO JAVIER Collins Family History Problem Relation Age of Onset Anxiety disorder Mother Arthritis Mother Depression Mother Alcohol abuse Father Cancer Father Alcohol abuse Sister Anxiety disorder Sister Arthritis Mother's Sister Arthritis Mother's Brother Arthritis Mother's Sister Family Status - Relation Status Age at Mother Father Sister Mother's Sister Mother's Brother Mother's SisterNormalUniversity [facility] Rehabilitation HospitalCB WITH AUTO DIFFERENTIALon 34-07-3225Pjcmmzeef (Bld) [#/Vol]0.05 10*3/uLNormal0.00-0.20 Marion HospitalComment on above:Performed By: #### [id number] #### [facility] ([facility]) [address] [place], [place] [address]Jlipojsjj/100 WBC (Bld)1.0 %Normal0.0-1.0UnWhite HospitalComment on above:Performed By: #### [id number] #### [facility] ([facility]) [address] [place], [place] [address]Oqjxiaydxbr (Bld) [#/Vol]0.26 10*3/uLNormal0.00-0.50UnWhite HospitalComment on above:Performed By: #### [id number] #### [facility] ([facility]) [address] [place], [place] [address]Okbwlujuzjn/100 WBC (Bld)5.0 %Normal0.0-6.0UnWhite HospitalComment on above:Performed By: #### [id number] #### [facility] ([facility]) [address] [place], [place] [address]Oweiiyfhgqf distribution width (RBC) [Ratio]13.0 %Normal 11.5-15.0UnWhite HospitalComment on above:Performed By: #### [id number] #### [facility] (BEAKER) [address] [place] [address]ZKBGMZXPIFR MEAN CORPUSCULAR HEMOGLOBIN CONCENTRATION (G/DL) BY WRFZHMHNZ62.0 g/dSPwlnoe52.0-35.0UnWhite HospitalComment on above:Performed By: #### [id number] #### [facility] ([facility]) [address] [place] [address]Pdqmtehtwh (Bld) [Volume fraction]37.1 %Zqiqeu41.0-48.0 Marion HospitalComment on above:Performed By: #### [id number] #### [facility] ([facility]) [address] [place] [address]Dpssmpjmux (Bld) [Mass/Vol]12.6 g/fAUtxqyg93.0-15.0UnWhite HospitalComment on above:Performed By: #### [id number] #### [facility] ([facility]) [address] [place], [place] [address]Bneupohe granulocytes (Bld) [#/Vol]0.02 10*3/uLNormal0.00-0.20 [facility] HospitalComment on above:Performed By: #### [id number] #### [facility] ([facility]) [address] [place] [address]Umdtkgwh granulocytes/100 WBC (Bld)0.4 %Normal0.0-1.0UnWhite HospitalComment on above:Performed By: #### [id number] #### [facility] ([facility]) [address] [place] [address]Ynzbnddqkhk (Bld) [#/Vol]0.98 10*3/uLLow1.20-4.00UnWhite HospitalComment on above:Performed By: #### [id number] #### [facility] ([facility]) [address] [place] [address]Ndcbfofmoue/100 WBC (Bld)18.9 %Low20.0-45.0UnWhite HospitalComment on above:Performed By: #### [id number] #### [facility] ([facility]) [address] [facility] [place], [place] [address]BBC (RBC) [Entitic mass]29.4 hnPdjdaw45.0-33.0UnWhite HospitalComment on above:Performed By: #### [id number] #### [facility] ([facility]) [address] [facility] [place] [address]NJV (RBC) [Entitic vol]86.7 cJPasplm60.0-98.0UnWhite HospitalComment on above:Performed By: #### [id number] #### [facility] ([facility]) [address] [facility], [place] [address]Wzgtezicn (Bld) [#/Vol]0.43 10*3/uLNormal0.10-1.00UnWhite HospitalComment on above:Performed By: #### [id number] #### [facility] ([facility]) [address] [place], [place] [address]Udgnkcxyc/100 WBC (Bld)8.3 %Normal5.0-12.0UnWhite HospitalComment on above:Performed By: #### [id number] #### [facility] ([facility]) [address] [facility], [place] [address]Fyoanqawjbw (Bld) [#/Vol]3.44 10*3/uLNormal1.60-7.60UnWhite HospitalComment on above:Performed By: #### [id number] #### [facility] ([facility]) [address] [facility] [place] [address]Tpibzrrqibg/100 WBC (Bld)66.4 %Rkzrsi82.0-72.0UnWhite HospitalComment on above:Performed By: #### [id number] #### [facility] ([facility]) [address] [facility] [address]TMWC (PER 100 WBCS) BY AUTOMATED COUNT0.0 %Uqwjft8KtqtvciubhWhite HospitalComment on above:Performed By: #### [id number] #### [facility] ([facility]) [address] [place] [address]WAFVJVOQQ (10*3/UL) IN BLOOD AUTOMATED JZQUM044 10*3/uLNormal 150-400UnWhite HospitalComment on above:Performed By: #### [id number] #### [facility] ([facility]) [address] [place] [address]LIR (Bld) [#/Vol]4.28 10*6/uLNormal3.80-5.00UnWhite HospitalComment on above:Performed By: #### [id number] #### [facility] ([facility]) [address] [place] [address]MNQ (Bld) [#/Vol]5.18 10*3/uLNormal4.00-10.60UnWhite HospitalComment on above:Performed By: #### [id number] #### [facility] ([facility]) [address] [place] [address]PNKTOCFUMBOXK METABOLIC PANELon 82-82-5479Wlwfdnh [Mass/Vol]3.9 g/dLNormal3.5-5.7UnWhite HospitalComment on above:Performed By: #### [id number] #### [facility] ([facility]) [address] [place] [address]JSQ [Catalytic activity/Vol]67 U/GCpvfia31-358BuwbysqmtdWhite HospitalComment on above:Performed By: #### [id number] #### [facility] ([facility]) [address] [place], [place] [address]SFV [Catalytic activity/Vol]17 U/LNormal7-52UnWhite HospitalComment on above:Performed By: #### [id number] #### [facility] ([facility]) [address] [place], [place] [address]Miapu gap [Moles/Vol]9 mmol/LNormal7-20UnWhite HospitalComment on above:Performed By: #### [id number] #### [facility] ([facility]) [address] [place] [address]OEN [Catalytic activity/Vol]15 U/CIfznbs65-68HtktehsxfoWhite HospitalComment on above:Performed By: #### [id number] #### [facility] ([facility]) [address] [place] [address]Umodnrvtk [Mass/Vol]0.2 mg/dLLow0.3-1.0UnWhite HospitalComment on above:Performed By: #### [id number] #### [facility] ([facility]) [address] [place] [address]Xjfhtyq [Mass/Vol]8.3 mg/dLLow8.6-10.3UnWhite HospitalComment on above:Performed By: #### [id number] #### [facility] ([facility]) [address] [place] [address]Wbnqdcrh [Moles/Vol]110 mmol/JGkjb78-035CwhgdhfatxWhite HospitalComment on above:Performed By: #### [id number] #### [facility] ([facility]) [address] [place] [address]LJ2 [Moles/Vol]24 mmol/TEutokz72-56RarglsrmmlWhite HospitalComment on above:Performed By: #### [id number] #### [facility] ([facility]) [address] [place] [address]Njtvcinyto [Mass/Vol]0.72 mg/dLNormal0.60-1.20UnWhite HospitalComment on above:Performed By: #### [id number] #### [facility] ([facility]) [address] [place] [address]JUNDNLVAVQ FILTRATION RATE ML/MIN/1.73 SQ M.ITBXYUVKZ630.4 mL/min/1.73m*2Normal>60.0UnWhite HospitalComment on above: Result Comment: [facility]???s estimated glomerular filtration rate (eGFR) will [...] potential consequences that do not disproportionately affect anyone group of individuals.Performed By: #### [id number] #### [facility] ([facility]) [address] [place], [place] [address]Dgnyglj [Mass/Vol]90 mg/zSRtenbx27-835TzlpgbfgskWhite HospitalComment on above:Performed By: #### [id number] #### [facility] ([facility]) [address] [place], [place] [address]Migssmqdy [Moles/Vol]3.7 mmol/LNormal3.5-5.1UnWhite HospitalComment on above:Performed By: #### [id number] #### [facility] ([facility]) [address] [place], [place] [address]Ziijnbz [Mass/Vol]6.3 g/dLNormal6.0-8.3UnWhite HospitalComment on above:Performed By: #### [id number] #### [facility] ([facility]) [address] [place], [place] [address]Wdyuin [Moles/Vol]139 mmol/YJmwekp058-772ShfxcaybwmWhite HospitalComment on above:Performed By: #### [id number] #### [facility] ([facility]) [address] [place], [place] [address]Vupk nitrogen [Mass/Vol]10 mg/dLNormal7-25UnWhite HospitalComment on above:Performed By: #### [id number] #### [facility] ([facility]) [address] [place], [place] [address]OLOH NITROGEN/CREATININE (MASS RATIO) IN SER/PLAS13.9Normal Marion HospitalComment on above:Performed By: #### [id number] #### [facility] ([place]) [address] [place], [place] [address]WXKEMKso 50-47-6536ETYXLGRxhotybp started having swollen neck lymph nodes. Seen doctor for this and had blood work and having more swelling in the neck and behind the ears. States difficult to swallow. Having body aches and itching. Was told this is because the carbamazepine side effects but the swelling is worse she states. Talking in complete full sentences.[facility] EDPROVon 52-02-7672WUGYMIRBC Chief Complaint Patient presents with Swollen Glands [...] Patient deniessick contacts. History provided by: Patient [place] Coma Scale Score: 15 Patient History Past Medical History: Diagnosis Date Trigeminal neuralgia Past Surgical History: Procedure Laterality Date HYSTEROSCOPY TONSILLECTOMY Family History Problem Relation Name Age of Onset Anxiety disorder Mother Tania Arthritis Mother Tania Depression Mother Tania Alcohol abuse Father Jose Miguel Cancer Father Jose Miguel Alcohol abuse Sister Kasie Anxiety disorder Sister Kasie Arthritis Mother's Sister Leann Arthritis Mother's Brother Williams Arthritis Mother's Sister Emily Social History Tobacco [...] pain and facial intermittent numbness is unchanged. Psychiatric/Behavioral: Negative for confusion. All other systems reviewed [...] Rate and Rhythm: Normal (more content not included)...NormalUnWhite HospitalMONONUCLEOSIS SCREENon 75-95-4913JFSWETANHCX ANTIBODIESNegative NormalNegativeUnWhite HospitalComment on above:Performed By: #### [id number] ####[facility] ([place])[address] [place] [address] Office Visiton 13-69-1187Nzhlzx-up [id number] Kierra NATARAJAN 1990 F Date Provider Department Center 09/23/2024 [address]-[facility]PS[facility] Family History Problem Relation Age of Onset Anxiety disorder Mother Arthritis Mother Depression Mother Alcohol abuse Father Cancer Father Alcohol abuse Sister Anxiety disorder Sister Arthritis Mother's Sister Arthritis Mother's Brother Arthritis Mother's Sister Family Status - Relation Status Age at Mother Father Sister Mother's Sister Mother's Brother Mother's Sister Level of Service:92492 [place] OFFICE/OUTPATIENT ESTABLISHED MOD MDM 30 MIN Reason for Visit and Comments: lymphnode [Other] - Patient states she has swollen lymphnode around jaw/ neck within the past couple days. Right side of abdomen gets tingly and numb. She was dx with Trigeminal neuralgia earlier August. Verified by her neurology. MRI on Friday of head.NormalUnWhite Hospital IGP,APTIMA HPV,AGE GDLNon 18-23-2644LKW GDLN ACOG TESTINGNote.[facility] Comment on above:TESTS RESULT FLAG UNITS REF RANGE LAB Clinician Provided Cytology Information Source.............Cervix;Endocervix No. of containers..01 ThinPrep Vial Age Verna ARNOLD Carmen... FLAG LEGEND: L-Low Normal,H-High Normal,LL-Alert Low,HH-Alert High <-Panic Low,>-Panic High,A-Abnormal,AA-Critical Abnormal Performed at: 01 =[address] [address] Kiesha Monroe MD, HPV APTIMANegativeNegativeNOMS HealthcareComment on above:This nucleic acid amplification test detects fourteen high- risk HPV types (16,18,31,33,35,39,45,51,52,56,58,59,66,68) without differentiation. Performed at: =[address] [id number] Applied Mathematician: Kiesha Monroe MD, Phone: [phone] Performed at: [address] [id number] Applied Mathematician: Kiesha Monroe MD, Phone: [phone] IGP, APTIMA HPV, RFX 16/18,45Note.NOMS HealthcareComment on above:TESTS RESULT FLAG UNITS REF RANGE LAB DIAGNOSIS: 02 NEGATIVE FOR INTRAEPITHELIAL LESION OR MALIGNANCY. Specimen adequacy: 02 Satisfactory for evaluation. Endocervical and/or squamous metaplastic cells (endocervical component) are present. Performed by: 02 Samantha Garcia, Cloud Solutions Architect ([facility]) . 02 Note: Note 02 The Pap smear is a screening test designed to aid in the detection of premalignant and malignant conditions of the uterine cervix. It is not a diagnostic procedure and should not be used as the sole means of detecting cervical cancer. Both false-positive and false-negative reports do occur. Test Methodology: Note 02 The [employer](R) Communications Technologist was unable to read this specimen. Therefore a manual review was performed. FLAG LEGEND: L-Low Normal,H-High Normal,LL-Alert Low,HH-Alert High <-Panic Low,>-Panic High,A-Abnormal,AA-Critical Abnormal Performed at: [address] [address] Kiesha Monroe MD, HPV Genotype Reflex Note 02 Criteria not met, HPV Genotype not performed. Criteria not met, HPV Genotype not performed. BRUSH-SPATULA CERVIX ENDOCERVIX CLINISYNCNOMS HealthcareUS PELVIS W/ TRANSVAGINALon 60-61-1976[place] [address] Ultrasound Report Signed Patient: KIERRA NATARAJAN MR#: [id number] : 1990 Acct:[id number] Age/Sex: 33 / F ADM Date: 08/24/24 Loc: US Attending Dr: Barb Luke Ordering Physician: Barb Luke Date of Service: 08/24/24 Procedure(s): US pelvis w/ transvaginal Accession Number(s): [id number] cc: Barb Luke; Willam Walter NP [facility] [place] [id number] Patient Name: KIERRA NATARAJAN MRN: [id number] date: 1990 Sex: F Assigned Patient Location: US Current Patient Location: Accession/Order Number: [id number] Exam Date: 08/24/2024 16:45 Report Date: 08/25/2024 07:11 At the request of: BARB LUKE Procedure: US pelvis w/ transvaginal EXAMINATION: US pelvis w/ transvaginal HISTORY: Irregular Periods, N92.6 COMPARISON: No relevant comparison available. FINDINGS: The uterus is retroverted. Uterus measures 7.9 x 4.5 x 5.8 cm. 7 mm area of hypoechogenicity within the body of the myometrium [...] fibroid is favored Electronically authenticated by: ELSIE MALHOTRA Date: 08/25/2024 07:11 Dictated By: Elsie Malhotra M.D. Signed By: 08/25/2413 DD/ 0 TD/TT: Sanitation Lead:TBHRadiology, Radiologist, - 08/25/[address] [address] Ultrasound Report Signed Patient: KIERRA NATARAJAN MR#: [id number] : 1990 Acct:[id number] Age/Sex: 33 / F ADM Date: 08/24/24 Loc: US Attending Dr: Barb Luke Ordering Physician: Barb Luke Date of Service: 08/24/24 Procedure(s): US pelvis w/ transvaginal Accession Number(s): [id number] cc: Barb Luke; Willam Walter NP [address] [address] Patient Name: KIERRA NATARAJAN MRN: [id number] date: 1990 Sex: F Assigned Patient Location: US Current Patient Location: Accession/Order Number: [id number] Exam Date: 08/24/2024 16:45 Report Date: 08/25/2024 07:11 At the request of: BARB LUKE Procedure: US pelvis w/ transvaginal EXAMINATION: US pelvis w/ transvaginal HISTORY: Irregular Periods, N92.6 COMPARISON: No relevant comparison available. FINDINGS: The uterus is retroverted. Uterus measures 7.9 x 4.5 x 5.8 cm. 7 mm area of hypoechogenicity within the body of the myometrium [...] fibroid is favored Electronically authenticated by: ELSIE MALHOTRA Date: 08/25/2024 07:11 Dictated By: Elsie Malhotra M.D. Signed By: 08/25/24712 DD/ 0 TD/TT: Sanitation Lead: NOMAlireza HealthcareRadiology Study observation (narrative)NOMS HealthcareUS PELVIS W/ TRANSVAGINALOrdered By: Radiologist Radiology on 36-97-6576EAKN Healthcare Work Phone: all CBC WITH AUTO DIFFon 38-86-5546VSZYYTKCV ABSOLUTE AUTO0.0NOIL HealthcareBasophils/100 WBC (Bld)0.6 %0.2 - 2.0 %[facility] Eosinophils/100 WBC (Bld)3.2 %0.9 - 7.0 %NOMS HealthcareErythrocyte distribution width (RBC) [Ratio]12.8 %11.0 - 15.0 %NOM HealthcareHematocrit (Bld) [Volume fraction]38.3 %36.0 - 48.0 %NOM HealthcareHemoglobin (Bld) [Mass/Vol]12.9 g/dL 12.0 - 16.0 g/dLNOSt. Louis Children's HospitalIMMATURE GRANULOCYTES ABS AUTO0.02[facility] Immature granulocytes/100 WBC (Bld)0.3 %0.0 - 0.5 %NOM HealthcareLYMPHOCYTES ABSOLUTE AUTO1.7NOIL HealthcareLymphocytes/100 WBC (Bld)24.0 %20.5 - 60.0 %[facility] & Sports MedicineH (RBC) [Entitic mass]29.4 pg26.7 - 34.0 pgNOJefferson Memorial HospitalHC (RBC) [Mass/Vol]33.7 g/dL29.9 - 35.2 g/dLMercy Hospital JoplinMCV (RBC) [Entitic vol]87.2 fL 81.0 - 99.0 fLMercy Hospital JoplinMONOCYTES ABSOLUTE AUTO0.4NOSt. Louis Children's Hospital Monocytes/100 WBC (Bld)6.1 %1.7 - 12.0 %NOM HealthcareNEUTROPHILS ABSOLUTE AUTO 4.8NOMS HealthcareNeutrophils/100 WBC (Bld)65.8 %43.0 - 75.0 %[facility] Platelet mean volume (Bld) [Entitic vol]11.1 fL9.5 - 13.5 fLMercy Hospital JoplinTBH EO #0.2NOMS HealthcareTBH [id number] [facility] HospitalTB RBC4.39NOMS [facility] HospitalTB WBC 7.2NOMS HealthcareCLINISYNCNOMS HealthcareXR pre/post mri xrayon 87-77-0135WB pre/post mri xrayPROMEDICA [place] [address] MRI Report Signed Patient: Kierra Natarajan MR#: [id number] 36 : 1990 Acct:[id number] Age/Sex: 33 / F ADM Date: 08/10/24 Loc: Room: Type: [facility] Attending Dr: Ro MAGDALENO Copies to: RASTA Arzola Ordering Provider: RASTA Arzola Date of Service: 08/10/24 MR/MR lumbar spine wo con: R26.9, M54.50, N39.489, R20.0 ([id number]) XR/XR pre/post mri xray: R26.9, M54.50, N39.489, [...] Eben Morel M.D.08/10/2024 8:33 AM Dictation Location: [place] [address] Transcribed By: [facility] 08/10/24 0833 Dictated By: Eben Morel DO 08/10/24 0828 Signed By: 08/10/24 0833[facility] Physician GroupMR cervical spine wo conon 96-78-2818NS cervical spine wo [facility] [place] [address] [place] [address] MRI Report Signed Patient: Kierra Natarajan MR#: [id number] 36 : 1990 Acct:[id number] Age/Sex: 33 / F ADM Date: 06/25/24 Loc: MR Room: Type: [facility] Attending Dr: Ro Forte Adult KALSOMINER-BC Copies to: CAROLYN Arzola NP-C Ordering Provider: [...] Yung Jr., D.OAlexx06/25/2024 6:59 PM Dictation Location: [place] [address] Transcribed By: [facility] 06/25/241858 Dictated By: Tony Yung Jr, DO 06/25/241852 Signed By: 06/25/241858[facility] Physician GroupAmbulatory referral to PsychiatryOrdered By: Beryl Sagastume on 14-26-9070SfrUjpozqPremier Health Miami Valley Hospital SouthFolate [Mass/Vol]on 74-44-1576QNLKR ACID15.0 ng/mLNormal>5.8[facility] Comment on above:Result Comment: NEW REFERENCE RANGEPerformed By: #### 3016-3, 2284-06, 2132-07, 57017-1 #### [facility] ([id number]) [address] [facility], [address] [place] [address] #### 12292-9 #### [facility] ([id number]) [address] [place], [place] [address]Ljdestrxwpqqes [Moles/Vol]on 84-94-0098Mmbtljicqmcft Acid, QN, P0.15 nmol/mLNormal<=0.40ProNorth Texas Medical CenterComment on above:Result Comment: NOTE ADDITIONAL INFORMATION This test was developed and its performance characteristics determined by [facility] in a manner consistent with CLIA requirements. This test has not been cleared or approved by the U.S. Food and Drug Administration. Test Performed by: [place] [address] Applied Mathematician: Michele Lee Ph.D.; CLIA# [id number] By: #### 3016- 3, 2284-06, 2132-07, 90946-7 #### [facility] ([id number]) [address], [address] [place] [address] #### 50177-7 #### [facility] ([id number]) [address] [place] [address]CWL Qnon 17-08-3373WVY4.81 uIU/mLNormal0.49-4.67ProNorth Texas Medical CenterComment on above:Performed By: #### 3016-3, 2284-06, 2132-07, 17230-3 #### [facility] ([id number]) [address] [facility], [address] [place] [address] #### 52642-7 #### [facility] ([id number]) [address] [place] [address]JXZYFYE B12on 21-36-5192Pzlcewgfs (Vitamin B12) [Mass/Vol]297 pg/gZXhtizi057-826AsoOvfsmw Lakeside HospitalComment on above:Performed By: #### 3016-3, 4-8, 2132-07, 03981-7 #### [facility] ([id number]) [address] [place] [address], [address] [place] [address] #### 28242-6 #### [facility] ([id number]) [address] [place] [address]Ogyivlw D+Metabolites [Mass/Vol]on 44-32-1460KLLKPCF D 25 HYD TOT27.9 ng/kYDdy15-088FxwSremmc Lakeside HospitalComment on above:Result Comment: Vitamin D status 25 [place] Vitamin D Deficiency <20 ng/mL Insufficiency 20-29 ng/mL Sufficiency 30-100 ng/mL Toxicity >100 ng/mL NOTE: A pediatric reference range has not been established by the clinic office manager of this kit. The [place] [employer] recommends a Vitamin D level of = or >20ng/mL in infants and children.Performed By: #### 3016-3, 8, 2132-07, 48002-0 #### [facility] ([id number]) [address] [place] [address], [address] [place] [address] #### 13098-7 #### [facility] ([id number]) [address] [place] [address]UFC EIA W/REFLEX 9 BIOMARKERSon 53-58-4760GYU DirectNegative NormalNegativeThe [facility] HospitalComment on above:Performed By: #### ANARF9 #### [facility] [address] [place] [address] Dr. Altagracia AllenC-REACTIVE PROTEINS (HS)on 89-35-9405R-Reactive Protein, Cardiac 2.96 mg/LNormal0.00-3.00The [facility] HospitalComment on above:Result Comment: Relative Risk for Future Cardiovascular Event Low <1.00 Average 1.00 - 3.00 High >3.00Performed By: #### CRPHS #### [facility] [address] [place] [address] Dr. Altagracia AllenCYCLIC CITRULLINATED PEPTIDE AB (CCP)on 47-49-6351LEQ Antibodies IgG/IgA4 unitsNormal0-19The [facility] HospitalComment on above:Result Comment: Negative <20 Weak positive 20 - 39 Moderate positive 40 - 59 Strong positive >59Performed By: #### CCPAB #### [facility] [address] [place] [address] Dr. Altagracia AllenHIV 1 AND 2 WITH REFLEXon 34-36-1663XDV Screen 4th Generation wRfxNon-ReactiveNormalNon ReactiveThe [facility] HospitalComment on above:Result Comment: HIV Negative HIV-1/HIV-2 antibodies and HIV-1 p24 antigen were NOT detected. There is no laboratory evidence of HIV infection.Performed By: #### HIV12 #### [facility] [address] [place] [address] Dr. Altagracia AllenMRI TSPINE WO CONon 69-10-3446BNX TSPINE WO CONEXAMINATION: MRI TSPINE WO CON HISTORY: Pain in [...] Electronically authenticated by: ERMELINDA PAIGE Date: 2023-03-05 14:38NormalThe [facility] General HospitalRHEUMATOID FACTORon 40-79-2244WL Latex Turbid.<10.0Normal<14.0 The [facility] HospitalComment on above:Performed By: #### RF ####[facility] [address] [place] [address]Dr. Altagracia AllenSED RATE WESTERGRENon 30-75-1964GEG RATE14 mm/hrNormal<=20The [facility] Comment on above:Performed By: #### SEDR #### [facility] [address] [place] [address] [address] Altagracia AllenHEMOGRAM AND PLATELon 90-79-2581Xdvelcckcl (Bld) [Volume fraction]40.0 %Meblcl43.0-48.0The [facility] HospitalComment on above:Performed By: #### HH ####[facility] Q[address] [place], [place] [address]Dr. Altagracia AllenHemoglobin (Bld) [Mass/Vol]13.5 g/nBGuymvg39.0-16.0The [facility] HospitalComment on above:Performed By: #### HH ####[facility] Byyyobyg[address] [place], [place] [address]Dr. Altagracia AllenH (RBC) [Entitic mass]28.5 pwUaomiw87.7-34.0The [facility] HospitalComment on above: Performed By: #### HH ####[facility] [address] [place], [place] [address]Dr. Altagracia AllenHC (RBC) [Mass/Vol]33.8 g/dLNormal 29.9-35.2The [facility] HospitalComment on above:Performed By: #### HH ####[facility] W[address] [place], [place] [address]Dr. Patrice AllenMCV (RBC) [Entitic vol]84.6 sMRfkfwn64.0-99.0The [facility] Comment on above:Performed By: #### HH ####[facility] [address] [address]Dr. Altagracia LmwsuMUM818 103/zaSitatr969-093Lyf [facility] HospitalComment on above:Performed By: #### HH ####[facility] [address] [address]DrAlexx Altagracia AllenRBC4.73 106/ul Normal4.20-5.40The [facility] HospitalComment on above:Performed By: #### HH ####[facility] [address] [address]Dr. Patrice cabrales ChangWBC8.0 103/ulNormal4.0-11.0The [facility] HospitalComment on above: Performed By: #### HH ####[facility] [address] [address]DrAlexx AllenLIPID PROFILEon [id number]-HDL RATIO NORMSEE BELOWBethesda North HospitalComment on above:Result Comment: 3.3 - 4.4 LOW RISK 4.4 - 7.1 AVERAGE RISK 7.1 - 11.0 MODERATE RISK >11.0 HIGH RISKPerformed By: #### LIPID, TSHRFT4, CMP #### [facility] [address] [address] [address] Altagracia Nuñezesterol [Mass/Vol]175 mg/dLNormal<=200The [facility] Comment on above:Performed By: #### LIPID, TSHRFT4, CMP #### [facility] [address] [address] [address] Altagracia Nuñezesterol in HDL [Mass/Vol]29 mg/dLCritically rcu79-15Kxq [facility] HospitalComment on above:Performed By: #### LIPID, TSHRFT4, CMP #### [facility] [address] [address] [address] Altagracia Nuñezesterol in LDL [Mass/Vol]127.2 mg/dLBethesda North HospitalComment on above:Performed By: #### LIPID, TSHRFT4, CMP #### [facility] [address] [address] [address] Altagracia AllenCholesterol.total/Cholesterol in HDL [Mass ratio]6.0 {ratio} NormalThe [facility] HospitalComment on above:Performed By: #### LIPID, TSHRFT4, CMP #### [facility] [address] [address] [address] Altagracia Cardoso NORMAL> or = 60 mg/dl - LOW CARDIOVASCULAR RISK <40 mg/dl - HIGH CARDIOVASCULAR RISKBethesda North HospitalComment on above:Performed By: #### LIPID, TSHRFT4, CMP #### [facility] [address] [address] [address] Altagracia AllenLDL CALC NORMALSEE BELOWBethesda North HospitalComment on above:Result Comment: <100 mg/dl OPTIMAL 100 - 129 mg/dl NEAR OR ABOVE OPTIMAL 130 - 159 mg/dl BORDERLINE HIGH 160 - 189 mg/dl HIGH >190 mg/dl VERY HIGH Performed By: #### LIPID, TSHRFT4, CMP #### [facility] [address] [address] [address] Altagracia AllenTriglyceride [Mass/Vol]94 mg/dLNormal<=150The [facility] Comment on above:Performed By: #### LIPID, TSHRFT4, CMP #### [facility] [address] [address] [address] Altagracia AllenVLDL CALC18.8 mg/dLNoUpper Valley Medical CenterComment on above: Performed By: #### LIPID, TSHRFT4, CMP #### [facility] [address] [place] [address] Dr. Altagracia AllenPROF 14(COMP METB)on [id number] [Mass/Vol]3.6 g/dLNormal 3.4-5.0The [facility] HospitalComment on above:Performed By: #### LIPID, TSHRFT4, CMP #### [facility] [address] [place] [address] Dr. Altagracia AllenAlbumin/Globulin [Mass ratio]1.1 {ratio}NormalThe [facility] HospitalComment on above:Performed By: #### LIPID, TSHRFT4, CMP #### [facility] [address] [place] [address] Dr. Altagracia Wolfe [Catalytic activity/Vol]72 U/MUurnmz00-221Rws [facility] HospitalComment on above:Performed By: #### LIPID, TSHRFT4, CMP #### [facility] [address] [place] [address] Dr. Altagracia Jimenez [Catalytic activity/Vol]27 U/CAxranl22-63Nvc [facility] HospitalComment on above:Performed By: #### LIPID, TSHRFT4, CMP #### [facility] [address] [place] [address] Dr. Altagracia Maurer gap [Moles/Vol]13.8 mmol/LNormalThe [facility] Comment on above:Performed By: #### LIPID, TSHRFT4, CMP #### [facility] [address] [place] [address] Dr. Altagracia Vines [Catalytic activity/Vol]17 U/NFblikv99-59Ulz [facility] HospitalComment on above:Performed By: #### LIPID, TSHRFT4, CMP #### [facility] [address] [place] [address] Dr. Altagracia AllenBilirubin [Mass/Vol]0.2 mg/dLNormal0.2-1.0The [facility] Comment on above:Performed By: #### LIPID, TSHRFT4, CMP #### [facility] [address] [place] [address] Dr. Altagracia AllenCalcium [Mass/Vol]8.6 mg/dLNormal8.5-10.1[facility] Comment on above:Performed By: #### LIPID, TSHRFT4, CMP #### [facility] [address] [place] [address] Dr. Altagracia AllenChloride [Moles/Vol]106 mmol/ZRxwjzp78-199BggSouthwest General Health Center Comment on above:Performed By: #### LIPID, TSHRFT4, CMP #### [facility] [address] [place] [address] Dr. Altagracia AllenCO2 [Moles/Vol]23.7 mmol/WJlmfjb15.0-32.0The [facility] Comment on above:Performed By: #### LIPID, TSHRFT4, CMP #### [facility] [address] [address] [address] Altagracia AllenCreatinine [Mass/Vol]0.76 mg/dLNormal0.55-1.02The [facility] HospitalComment on above:Performed By: #### LIPID, TSHRFT4, CMP #### [facility] [address] [address] [address] Frias ChangEGFR-AF THAI>60Normal>=60The [facility] HospitalComment on above:Performed By: #### LIPID, TSHRFT4, CMP #### [facility] [address] [address] [address] Altagracia ShoemakerGFR-NON AF THAI>60Normal>=60The [facility] HospitalComment on above:Performed By: #### LIPID, TSHRFT4, CMP #### [facility] [address] [address] [address] Altagracia AllenGlobulin (S) [Mass/Vol]3.4 g/dLNormalThe [facility] HospitalComment on above:Performed By: #### LIPID, TSHRFT4, CMP #### [facility] [address] [address] [address] Altagracia AllenGlucose [Mass/Vol]92 mg/xXIrebem64-219Qac [facility] Comment on above:Performed By: #### LIPID, TSHRFT4, CMP #### [facility] [address] [address] [address] Altagracia AllenPotassium [Moles/Vol]3.5 mmol/LNormal3.5-5.1The [facility] Comment on above:Performed By: #### LIPID, TSHRFT4, CMP #### [facility] [address] [address] [address] Altagracia AllenProtein [Mass/Vol]7.0 g/dLNormal6.4-8.2The [facility] Comment on above:Performed By: #### LIPID, TSHRFT4, CMP #### [facility] [address] [place] [address] Dr. Altagracia AllenSodium [Moles/Vol]140 mmol/WSnuwan040-425Nce [facility] Comment on above:Performed By: #### LIPID, TSHRFT4, CMP #### [facility] [address] [place] [address] Dr. Altagracia AllenUrea nitrogen [Mass/Vol]13.0 mg/dLNormal7.0-18.0The [facility] HospitalComment on above:Performed By: #### LIPID, TSHRFT4, CMP #### [facility] [address] [place] [address] nitrogen/Creatinine [Mass ratio]17.1 mg/mgNoUpper Valley Medical CenterComment on above:Performed By: #### LIPID, TSHRFT4, CMP #### [facility] [address] [place] [address] Dr. Altagracia Johnson W/ REFLEX TO FT4on 67-11-2249YAC9.830 uIU/mLNormal0.358-3.740 The [facility] HospitalComment on above:Performed By: #### LIPID, TSHRFT4, CMP #### [facility] [address] [place] [address] Dr. Altagracia AllenXR TSPINE 3 VIEWSon [id number] TSPINE 3 VIEWSEXAMINATION: XR TSPINE 3 VIEWS HISTORY: Pain in [...] Electronically authenticated by: ERMELINDA PAIGE Date: 2023-02-14 07:59NoUpper Valley Medical CenterCB W/DIFFon [id number] BASOPHILS0.1 10*3/uLNormal0.0-0.2The [facility] HospitalComment on above:Performed By: #### 69742 #### [facility] [address] [facility] [place] [address], USAABS IMM GRANS0.0 10*3/uLNormal0.0-0.2The [facility] HospitalComment on above:Performed By: #### 75525 #### [facility] [address] [place] [address], USAABS NEUTROPHILS4.9 10*3/uLNormal1.6-7.6The [facility] HospitalComment on above:Performed By: #### 71812 #### [facility] [address] [place] [address], [facility] CENTERBasophils/100 WBC (Bld)0.7 %Normal0.0-1.0The [facility] HospitalComment on above:Performed By: #### 08794 #### [facility] [address] [place] [address], USAEosinophils (Bld) [#/Vol]0.3 10*3/uLNormal0.0-0.5The [facility] HospitalComment on above:Performed By: #### 66371 #### [facility] [address] [place] [address], USAEosinophils/100 WBC (Bld)3.6 %Normal0.0-6.0The [facility] HospitalComment on above:Performed By: #### 84724 #### [facility] [address] [place] [address], USAErythrocyte distribution width (RBC) [Ratio]13.2 %Normal 11.5-15.0The [facility] HospitalComment on above:Performed By: #### 78036 #### [facility] [address] [place] [address], USAHematocrit (Bld) [Volume fraction]44.2 %Tyfrhg86.0-45.0The [facility] HospitalComment on above:Performed By: #### 53652 #### [facility] [address] [place] [address], USAHemoglobin (Bld) [Mass/Vol]14.4 g/bFRnomqu06.0-15.0The [facility] HospitalComment on above:Performed By: #### 28638 #### [facility] [address] [facility] [place] [address], USAIMMATURE GRANS0.4 %Normal0.0-1.0The [facility] HospitalComment on above:Performed By: #### 28813 #### [facility] [address] [facility] [place] [address], USALymphocytes (Bld) [#/Vol]1.8 10*3/uLNormal1.2-4.0The [facility] HospitalComment on above:Performed By: #### 62636 #### [facility] [address] [facility] [place] [address], USALymphocytes/100 WBC (Bld)23.3 %Svifgt13.0-45.0The [facility] HospitalComment on above:Performed By: #### 11973 #### [facility] [address] [facility] [place] [address], [facility] MEDICAL CENTERMCH (RBC) [Entitic mass]29.1 anPuzrtz77.0-33.0The [facility] HospitalComment on above:Performed By: #### 11381 #### [facility] [address] [place] [address], USAMCHC (RBC) [Mass/Vol]32.6 g/wLPqrvyn66.0-35.0The [facility] HospitalComment on above:Performed By: #### 86720 #### [facility] [address] [place] [address], USAMCV (RBC) [Entitic vol]89.3 rUIzqoim77.0-98.0The [facility] HospitalComment on above:Performed By: #### 61897 #### [facility] [address] [place] [address], USAMonocytes (Bld) [#/Vol]0.6 10*3/uLNormal0.1-1.0The [facility] HospitalComment on above:Performed By: #### 61501 #### [facility] [address] [place] [address], USAMONOS7.6 %Normal5.0-12.0The [facility] HospitalComment on above:Performed By: #### 82527 #### [facility] [address] [place] [address], USANeutrophils/100 WBC (Bld)64.4 %Wnwfny07.0-72.0The [facility] HospitalComment on above:Performed By: #### 55657 #### [facility] [address] [facility] [place] [address], USANucleated RBC/100 WBC (Bld) [Ratio]0 %Normal0-0The [facility] HospitalComment on above:Performed By: #### 93390 #### [facility] [address] [facility] [place] [address], USAPLAT TIG049 10*3/sVKvrvej163-257Kki [facility] HospitalComment on above:Performed By: #### 23756 #### [facility] [address] [facility] [address], USARBC (Bld) [#/Vol]4.95 10*6/uLNormal3.80-5.00The [facility] HospitalComment on above:Performed By: #### 72244 #### [facility] [address] [place] [address], USAWBC (Bld) [#/Vol]7.59 10*3/uLNormal4.00-10.60The [facility] HospitalComment on above:Performed By: #### 64319 #### [facility] [address] [place] [address], USACOMP METABOLIC PANELon 61-19-4913Crtxddu [Mass/Vol]4.4 g/dL Normal3.5-5.7The [facility] HospitalComment on above:Performed By: #### 86001, 03609, 12669 #### [facility] [address] [facility] [place] [address], USAALKALINE MPATAU32 IU/BGrkkbq58-884Rlw [facility] HospitalComment on above:Performed By: #### 73199, 96802, 73231 #### [facility] [address] [facility] [place] [address], USAALT [Catalytic activity/Vol]13 U/LNormal7-52The [facility] HospitalComment on above:Performed By: #### 70884, 93204, 14212 #### [facility] [address] [facility] [place] [address], USAAST [Catalytic activity/Vol]14 U/CHipumu24-74Jlw [facility] HospitalComment on above:Performed By: #### 30620, 44329, 43228 #### [facility] [address] [place] [address], USABilirubin [Mass/Vol]0.4 mg/dLNormal0.3-1.0The [facility] HospitalComment on above:Performed By: #### 81873, 56861, 32204 #### [facility] [address] [place] [address], USACalcium [Mass/Vol]9.2 mg/dLNormal8.6-10.3The [facility] HospitalComment on above:Performed By: #### 17437, 25487, 88549 #### [facility] [address] [place] [address], USAChloride [Moles/Vol]105 mmol/PGhhdxx03-970Asu [facility] HospitalComment on above:Performed By: #### 42637, 45527, 01268 #### [facility] [address] [place] [address], USACO2 [Moles/Vol]28 mmol/HLvkolc58-24Nfd [facility] HospitalComment on above:Performed By: #### 58057, 73301, 20758 #### [facility] [address] [place] [address], USACreatinine [Mass/Vol]0.90 mg/dLNormal0.60-1.20The [facility] HospitalComment on above:Performed By: #### 54777, 40331, 77122 #### [facility] [address] [place] [address], USAGFR/1.73 sq M predicted among blacks MDRD (S/P/Bld) [Vol rate/Area]mL/min/{1.73_m2}Normal>60The [facility] Comment on above:Performed By: #### 97592, 20607, 22894 #### [facility] [address] [place] [address], USAGFR/1.73 sq M predicted among non-blacks MDRD (S/P/Bld) [Vol rate/Area]mL/min/{1.73_m2}Normal>60The [facility] Comment on above:Performed By: #### 99587, 14063, 19184 #### [facility] [address] [place] [address], USAGlucose [Mass/Vol]86 mg/cHGrdrse99-544Dqx [facility] HospitalComment on above:Performed By: #### 25466, 87166, 14278 #### [facility] [address] [place] [address], USAPotassium [Moles/Vol]3.9 mmol/LNormal3.5-5.1The [facility] HospitalComment on above:Performed By: #### 03665, 76336, 30117 #### [facility] [address] [place] [address], USAProtein [Mass/Vol]7.1 g/dLNormal6.0-8.3The [facility] HospitalComment on above:Performed By: #### 61664, 99076, 27982 #### [facility] [address] [place] [address], USASodium [Moles/Vol]138 mmol/ANflipe405-219Jts [facility] HospitalComment on above:Performed By: #### 67361, 70680, 18791 #### [facility] [address] [place] [address], USAUrea nitrogen [Mass/Vol]11 mg/dLNormal7-25The [facility] HospitalComment on above:Performed By: #### 05778, 95459, 15378 #### [facility] [address] [place] [address], USALIPID PROFILEon [id number] [Mass/Vol]162 mg/dL Ezsclp312-312Nyh [facility] HospitalComment on above:Result Comment: CHOLESTEROL REFERENCE RANGE: 20 YEARS AND OLDER CARDIOVASCULAR RISK Less than 200 mg/dl Low Risk 200 to 239 mg/dl Borderline Risk 240 mg/dl and greater High RiskPerformed By: #### 07940, 20292, 61641 #### [facility] [address] [place] [address], USACholesterol in HDL [Mass/Vol]38 mg/uVYmobsf68-64Ayu [facility] HospitalComment on above:Result Comment: Slight variation in normal range could be due to gender and/or age. HDL CHOLESTEROL REFERENCE RANGE: 20 years and older Cardiovascular Risk > or =60 mg/dL Desirable 40 TO 59 mg/dL Low Risk <40 mg/dL High RiskPerformed By: #### 65889, 14225, 12702 #### [facility] [address] [place] [address], USACholesterol in LDL [Mass/Vol]111 mg/dLNormal0-130The [facility] HospitalComment on above:Result Comment: LDL IS A CALCULATION LDL IS ONLY VALID IF THE TRIG IS LESS THAN 400.Performed By: #### 11568, 98003, 17321 #### [facility] [address] [place] [address], USACholesterol.total/Cholesterol in HDL [Mass ratio]4.3 {ratio}Normal0.0-4.5The [facility] HospitalComment on above: Performed By: #### 97164, 34410, 19202 #### [facility] [address] [place] [address], USANON-HDL RYUWRBWERGZ385 mg/dLNormalThe [facility] HospitalComment on above:Performed By: #### 87720, 53168, 27193 #### [facility] [address] [place] [address], USATriglyceride [Mass/Vol]66 mg/wCVjrilc71-207Poz [facility] HospitalComment on above:Result Comment: TRIGLYCERIDE REFERENCE RANGE: 20 YEARS AND OLDER CARDIOVASCULAR RISK LESS THAN 150 mg/dl LOW RISK 150 TO 199 mg/dl BORDERLINE RISK 200 mg/dl AND GREATER HIGH RISKPerformed By: #### 81805, 33209, 77560 #### [facility] [address] [place] [address], USAVLDL CHOL13 mg/dLNormal0-40The [facility] HospitalComment on above:Performed By: #### 89929, 18688, 70515 #### [facility] [address] [facility] [place] [address], USATSH3 WITH REFLEX FT4on [id number] 3RD GENERATION1.73 uIU/mLNormal0.34-5.60The [facility] HospitalComment on above: Performed By: #### 36381, 17942, 50687 #### [facility] [address] [facility] [place] [address], [facility] Vital Signs Date TimeVital SignValuePerforming UseevlsvzDqkgodkn97-40-3814 11:00-0500Body mass index (BMI) [Ratio]38.43 kg/m2Barb CLOUD Work Phone: [facility]oplinIseciklqor32-33-5824 11:00-0500Body nuwgqj591.05 kgBarb CLOUD Work Phone: [phone] JoplinZqwfcyfaim47-21-1762 11:00-0500Diastolic blood vnpaaruu59 mm[Hg]Barb CLOUD Work Phone: [facility]oplinRjpscojkbc79-42-0151 11:00-0500Systolic blood mm[Hg]Barb CLOUD Work Phone: [facility]oplinCdoufyejhc27-90-8961 09:17-0400Body ecbjbr851.26 cmPaul[facility]2025 09:17-0400Body mass index (BMI) [Ratio]38.2 kg/m2CwbuaddioPaulding County Hospital2025 09:17-0400Body ipudlsghrwi12.4 [degF][facility]2025 09:17-0400Body zzcalm892.48 kgPaulding County Hospital2025 09:17-0400Diastolic blood cqtaxowe30 mm[Hg][facility]2025 09:17-0400 Heart rate77 /[facility]2025 09:17-0400 Respiratory rate18 /[facility]2025 09:17-0400 SaO2% (BldA) [Mass fraction]98 %[facility]2025 09:17-0400Systolic blood ldqpehgx489 mm[Hg][facility] 07-05-2025 12:58-0400Body mass index (BMI) [Ratio]36.56 kg/m2Eric Gaines DO Work Phone: [facility]08-12-2025 12:58-0400Body ssoizv245.49 kgEric Gaines DO Work Phone: [facility]08-12-2025 12:58-0400Diastolic blood gloixtyd53 mm[Hg]Avery Gaines DO Work Phone: [facility]08-12-2025 12:58-0400Heart rate80 /min Avery Gaines DO Work Phone: [facility]08-12-2025 12:58-0400Systolic blood lvaxybnp233 mm[Hg]Avery Gaines DO Work Phone: [facility]04-22-2025 11:01-0400Body ozxgvj120.4 cmMoshawanda Jacobo [employer] Work Phone: [phone] Health SystemRcoivb97-95-2118 11:01-0400Body mass index (BMI) [Ratio]36.94 kg/a0Awqmshltshawanda Jacobo [employer] Work Phone: [phone] Vrgerd34-21-9251 11:01-0400Body temperature 98.2 [degF]Maggy Jacobo [employer] Work Phone: [phone] Lfxgjw56-74-1301 11:01-0400Body dniocm994.65 kgMoshawanda Jacobo [employer] Work Phone: [phone] Fkvecx48-13-7783 11:01-0400Diastolic blood nojaoiea73 mm[Hg]Maggy Jacobo [employer] Work Phone: [phone] Ubyejc39-80-1846 11:01-0400Heart rate83 /min Maggy Jacobo [employer] Work Phone: [phone] Fvhjem66-34-9573 11:01-0400Systolic blood kiqlhbhh302 mm[Hg]Maggy Gurvindermaryuri [employer] Work Phone: GMemorial Health SystemIfjjec17-62-4145 13:22-0400Body mass index (BMI) [Ratio]33.97 kg/n5FwmosThien Silva MD Work Phone: [facility]oplinEvizatwlxr08-92-7208 13:22-0400Body zlzxij076.33 kgThien Silva MD Work Phone: [facility]oplinSdqejergtj98-22-1798 13:22-0400Diastolic blood wunmvklo86 mm[Hg]Thien Silva MD Work Phone: [facility]oplinJtztfcuvrx78-74-3215 13:22-0400Systolic blood hxhrrvje147 mm[Hg]Thien Silva MD Work Phone: [facility] JoplinVcxgvnsdxz34-01-6305 10:42-0500Body ttmiop422.5 cmVincenzo Mukherjee MD Work Phone: [phone] Health SystemPnwiux38-56-1208 10:42-0500Body mass index (BMI) [Ratio]36.61 kg/d5YhtelcVincenzo Mukherjee MD Work Phone: [phone] Health SystemJkwsvt74-49-2730 10:42-0500Body temperature 98.4 [degF]Vincenzo Mukherjee MD Work Phone: [phone] Health SystemXykoud80-66-0175 10:42-0500Body wmnehm796.75 kgVincenzo Mukherjee MD Work Phone: [phone] Health SystemFgnvsp05-94-9698 10:42-0500Diastolic blood oavgqyaj25 mm[Hg]Vincenzo Mukherjee MD Work Phone: [phone] Health SystemZnivez14-83-7351 10:42-0500Heart rate82 /min Vincenzo Mukherjee MD Work Phone: [phone] hospitals tri[facility] medical centerand Vyplgr95-30-4133 10:42-0500Systolic blood xumauzfx609 mm[Hg]Vincenzo Mukherjee MD Work Phone: [phone] [place], [place] [address]11-20-2024 13:32-0500Body mass index (BMI) [Ratio]35.44 kg/m2Amy Marly CLOUD Work Phone: [phone]11-20-2024 13:32-0500Body ksjfuy591.86 kgBarb Marly CLOUD Work Phone: [phone] [place] [address]-20-2024 13:32-0500Diastolic blood xlijprai20 mm[Hg]Barb CLOUD Work Phone: [phone] [place] [address]-20-2024 13:32-0500Systolic blood gxwasznt429 mm[Hg]Barb CLOUD Work Phone: [phone] [place] [address]-08-2024 08:25-0500Body zyzlga747.3 cmSudheer Chacon MD Work Phone: 1(419)[address] [place], [place] 9175511-08-2024 08:25-0500Body mass index (BMI) [Ratio]35.59 kg/t1IgdlmiSudheer Chacon MD Work Phone: 1(419)[address] [place] [address]-08-2024 08:25-0500Body .32 kgSudheer Chacon MD Work Phone: 1(419)[address] [place] [address]-08-2024 08:25-0500Diastolic blood ejygclcg67 mm[Hg]Sudheer Chacon MD Work Phone: 1(419)[address] [place] [address]-08-2024 08:25-0500Systolic blood guuhqppb428 mm[Hg]Sudheer Chacon MD Work Phone: 1(419)[address] [place], [place] 9175510-25-2024 09:49-0400Body vibvzv897.3 cmSudheer Chacon MD Work Phone: 1(419)[address] [place], [place] 9175510-25-2024 09:49-0400Body mass index (BMI) [Ratio]35.15 kg/f5BuxzplSudheer Chacon MD Work Phone: 1(419)[address] [place], [place] 9175510-25-2024 09:49-0400Body azuokt934.96 kgSudheer Chacon MD Work Phone: 1(419)[address] [place], [place] [address]10-25-2024 09:49-0400Diastolic blood iblyzhuw84 mm[Hg]Sudheer Chacon MD [id number] 09:49-0400Systolic blood cqjivcqx721 mm[Hg]Sudheer Chacon MD Work Phone: [facility] HospitalLszeuzqdfr13-11-1528 13:39-0400Body sdfzau262.7 cmFevon Forte KALSOMINER Work Phone: [facility]linWmschjxqts25-20-8712 13:39-0400Body mass index (BMI) [Ratio]35.81 kg/v8Qbsfypivon Guzmangel KALSOMINER Work Phone: [facility]linDphegmwlzp15-71-3446 13:39-0400Body toqnnz249.82 kgFevon Guzmangel KALSOMINER Work Phone: [facility]linRqtqkicngp48-07-6067 13:39-0400Diastolic blood hacuzelw09 mm[Hg]Ro Forte KALSOMINER Work Phone: [facility]linUwoppliaed03-11-1019 13:39-0400Heart rate78 /min Ro Guzmangel KALSOMINER Work Phone: [facility]linSgbfjbvvpk32-61-3028 13:39-0400Systolic blood mm[Hg]Ro Guzmangel KALSOMINER Work Phone: [facility]linGvsgjyoqux47-39-2332 10:53-0400Body mass index (BMI) [Ratio]36.31 kg/v7Tcsoa Addie DO Work Phone: [facility]linNbdgfxfuhn51-74-2587 10:53-0400Body mutzno106.32 kgCorey Addie DO Work Phone: [facility]linOllcbuscut05-46-3438 10:53-0400Diastolic blood desnbstu31 mm[Hg]Jeremy Addie DO Work Phone: [facility]linVddkcfnodc04-92-9129 10:53-0400Systolic blood qxubrozo416 mm[Hg]Jeremy Addie DO Work Phone: [place] [address]Bpmuvatsce19-13-4697 09:11-0400Body mass index (BMI) [Ratio]35.75 kg/m2Barb Marly CLOUD Work Phone: [place] [address]Smgtzmqprs04-14-5472 09:11-0400Body xdyiva197.65 kgBarb Marly PA Work Phone: [place] [address]Gckadfrmrb62-43-2676 09:11-0400Diastolic blood tjsvench42 mm[Hg]Barb Marly PA Work Phone: [place] [address]Legzjuhkwe56-42-3064 09:11-0400Systolic blood ybdisryz140 mm[Hg]Barb Marly PA Work Phone: NOSt. [facility]'s HospitalNkcxxdurdn63-53-9627 09:09-0400Body mass index (BMI) [Ratio]36.19 kg/q9Ibbvjrcvon Forte KALSOMINER Work Phone: NOSt. Louis Children's HospitalLcenxaxhgs45-74-2970 09:09-0400Body qepwsy284.96 kgFevon Forte KALSOMINER Work Phone: [place] [address]Kkbykruqrc95-30-1910 09:09-0400Diastolic blood nkucganj05 mm[Hg]Ro Forte KALSOMINER Work Phone: [place] [address]Ajntdbsgps67-61-0698 09:09-0400Heart rate71 /min Ro Forte KALSOMINER Work Phone: [place] [address]Eyjlsrsbbj76-15-9552 09:09-0400Systolic blood asszxbks254 mm[Hg]Ro Forte KALSOMINER Work Phone: [facility] Encounters Encounter DateEncounter TypeCare ProviderFacilityStart: 10-04-2025 End: 61-24-5679Xttwjm flowsheetCorey Addie DO Work Phone: [facility] [place] OBGYNStart: 10-04-2025 End: 67-92-0182Mhlpmg flowsheetCorey Addie DO Work Phone: [facility] [place] OBGYNStart: 10-04-2025 End: 01-97-2782gbunzzfomtCHSOU FAZIONot AvailableStart: 09-29-2025 End: 17-39-1184Rvxebs flowsheetBarb Marly CLOUD Work Phone: NO [place] OBGYNStart: 09-29-2025 End: 47-35-5480Tkihsi flowsheetBarb CLOUD Work Phone: noMS Meredithue OBGYNStart: 09-29-2025 End: 58-83-8372Pqrefhwtl Result EncounterBarb Marly CLOUD Work Phone: [facility] External Department UnsolicitedStart: 09-29-2025 End: 69-25-7409Wbqlghl encounter procedureBarb Marly CLOUD Work Phone: noms HealthcareStart: 09-29-2025 End: 85-71-3991Tbjqufjo preventive med est patient 18-39 yrsBarb Marly CLOUD Work Phone: noMS [place] OBGYNComment on above:Well woman exam with routine gynecological exam; History of ovarian cyst; Pain in female genitalia on intercourse; Chronic right-sided low back pain, unspecified whether sciatica presentStart: 09-29-2025 End: 78-16-2367ynnbntwbktSVM RAMEYNot AvailableStart: 09-20-2025 End: 20-95-6857thtqqmnklbTPFSI COHENFacility:[facility] Systemtart: 09-14-2025 End: 30-98-2796fsoaagyfwtCTY STAFF-[facility] ClydeStart: 09-14-2025 End: 29-30-4105Pdunnbt encounter procedureRoxann Garsia FIBERGLASS FINISHER-[facility] Work Phone: Start: 09-06-2025 End: 29-19-1199rhyyaxlingGYIVP COHENFacility:[facility] Systemtart: 07-14-2025 End: 09-56-9359uvjxwxzjaqLUGU [facility]art: 07-14-2025 End: 09-38-7143Lbwwctqfc for general adult medical examination without abnormal findingsJOSTEFANI [facility]althtart: 07-13-2025 End: 80-45-5542nokxlxofgqDzer P Gaines DO Work Phone: NeurologyComment on above:Day 5 Update on Indomethacin MedicationStart: 07-05-2025 End: 50-53-8854Oqqictl encounter procedureEric P Gaines DO Work Phone: NeurologyComment on above:Chronic daily headache (Primary Dx); Hemicrania continua; Intractable chronic migraine without aura and without status migrainosus; Chronic migraine without aura, intractable, without status migrainosus; Occipital neuralgia of right side; Migraine without aura and without status migrainosus, not intractable; Trigeminal nerve disorder; Right trigeminal neuralgiaStart: 07-05-2025 End: 48-27-0180urfurchklnMJXJ P BARONFacility:[facility] Systemtart: 06-02-2025 End: 97-68-1294YR/PT/Speech VisitMark [facility] Work Phone: [place] [facility] TherapyComment on above:Trigeminal nerve disorder (Primary Dx); Chronic migraine without aura, intractable, without status migrainosusStart: 06-02-2025 End: 41-83-5003ddvscupkwbXZNLACMC Healthcare System Glenbeightart: 05-14-2025 End: 66-40-0211bhsszqsybzVPNULEFBon [facility] Ambulatory PPGStart: 05-05-2025 End: 03-08-4484FB/PT/Speech VisitMark [facility] Work Phone: [facility] TherapyComment on above:Trigeminal nerve disorder (Primary Dx); Chronic migraine without aura, intractable, without status migrainosusStart: 04-13-2025 End: 28-39-9960agidawpsqeSXCUPPNN HAMDANFacility:[facility] Systemtart: 04-13-2025 End: 08-42-8616xjwleppqxzIDXQFJFH HAMDANFacility:[facility] Systemtart: 03-30-2025 End: 22-34-2781Pfysvafef department patient visitSTEVEN LEPSKYFacility:[facility] Systemtart: 03-15-2025 End: 63-51-3742Uevswvf encounter procedureMoshawanda Jacobo FIBERGLASS FINISHER.[employer] Work Phone: Neurology Headache Darfur FHCComment on above:Chronic migraine without aura, intractable, without status migrainosus (Primary Dx); Trigeminal nerve disorder; Occipital neuralgia of right side; Chronic sinusitis, unspecified locationStart: 03-15-2025 End: 80-22-8565bpcdxgtsruUNFYLIFP ADNFacility:[facility] Systemtart: 03-05-2025 End: 23-31-1609zplbdgvotqYipkyoku Odalis FIBERGLASS FINISHER.[employer] Work Phone: NeurologyComment on above:Symptoms-upcoming apptStart: 03-03-2025 End: 76-25-4026kmegurzdglNQMAZBBCJ JUANIFacility:[facility] Start: 03-03-2025 End: 99-43-6619Ntwpwjpz [facility] Papito FIBERGLASS FINISHER.[employer] Work Phone: NeurologyComment on above:Right trigeminal neuralgia (Primary Dx); Trigeminal nerve disorder; Occipital neuralgia of right sideStart: 02-21-2025 End: 76-70-9708Rmptbc Delmer Silva MD Work Phone: NODD SWS OBStart: 02-21-2025 End: 97-48-1082Kmabql Delmer Silva MD Work Phone: NOFJ SWS OBStart: 02-21-2025 End: 51-95-4530Pvwvtj outpatient new 45 Darryn Silva MD Work Phone: NOHQ SWS OBComment on above:Mass of right breast, unspecified quadrant (Primary Dx)Start: 02-21-2025 End: 18-33-3690cjqmkmuerwJSTQVAna Maria Soni AvailableStart: 02-15-2025 End: 59-28-3312xpoopleiwtQCVAY A PETITTINot AvailableStart: 01-06-2025 End: 98-16-3353tzdyxiienmEBCCFFZV HAMDANFacility:[facility] Systemtart: 01-06-2025 End: 80-48-1939Yvgxwmh encounter procedureMoshawanda Jacobo OBED Work Phone: NeurologyComment on above:Right trigeminal neuralgia Start: 01-06-2025 End: 03-63-1081Qdimvycafpbv consultation with patientMaggy Jacobo OBED Work Phone: NeurologyStart: 12-27-2024 End: 08-13-6564gnitntrbyjIMHLPBUOM [facility] Start: 12-14-2024 End: 37-46-9304jotzrjptksAIBHNB FIDELINACEDAR COUNTY MEMORIAL HOSPITALFacility:[facility] Systemtart: 12-14-2024 End: 43-65-5781Rpfwoxyeez hospital visit by physicianalvin [facility] Jessica (1.5t) Work Phone: RadiologyComment on above:Right trigeminal neuralgia [G50.0]Start: 11-23-2024 End: 42-90-9234vrqtopmjlgFSEYRI [facility]OSPITALFacility:[facility] Systemtart: 11-23-2024 End: 03-79-4334Fpyiyp outpatient new 30 minutesVincenzo Mukherjee MD Work Phone: Neurology [facility] FHCComment on above:Right trigeminal neuralgia (Primary Dx)Start: 10-14-2024 End: 60-90-8066nglhaiesgrKFOX [facility] Healthtart: 10-13-2024 End: 55-61-3912Lecfhh Gerry CLOUD Work Phone: N[facility] BCP OBStart: 10-13-2024 End: 05-63-2682Gsntrv Gerry CLOUD Work Phone: [facility] BCP OBStart: 10-13-2024 End: 33-00-3764Glnnsv outpatient visit 10 minutesBarb CLOUD Work Phone: noms BCP OBComment on above:Encounter to discuss test resultsStart: 10-13-2024 End: 44-37-7069pybxcdomdlTWE RAMEYNot AvailableStart: 10-10-2024 End: 25-81-8811rddlkzklhvFGNLGZCAWWright-Patterson Medical Center Start: 10-07-2024 End: 49-53-7633Vkextpnjw Result EncounterSudheer Chacon MD Work Phone: noms External Department UnsolicitedStart: 10-07-2024 End: 66-56-5304Jisogfddy Result EncounterSudheer Chacon MD Work Phone: noms External Department UnsolicitedStart: 10-06-2024 End: 21-04-9735zihrozwrgxNXNKTURLFMemorial Health System [facility] Start: 10-01-2024 End: 41-09-0060Sszjyg flowsheetSudheer Chacon MD Work Phone: noms ENT NORWALKStart: 10-01-2024 End: 27-01-7951Miumjskhy Result EncounterSudheer Chacon MD Work Phone: noms External Department UnsolicitedStart: 10-01-2024 End: 44-50-1045Ydjsaxfls Result EncounterSudheer Chacon MD Work Phone: noms External Department UnsolicitedStart: 10-01-2024 End: 61-23-0404ydslizaeknVyzlic H TimmisFacility:FTMCStart: 10-01-2024 End: 39-31-6820Vuvzica encounter procedureSudheer Chacon [facility] Start: 10-01-2024 End: 21-13-2062Egyezq outpatient visit 25 minutesSudheer Chacon MD Work Phone: noms ENT NORWALomment on above:LAD (lymphadenopathy) of left cervical region (Primary Dx)Start: 09-27-2024 End: 88-58-1506Bhgvyezcv encounterNicholas Riedy [facility] [place] [address] Start: 09-26-2024 End: 88-04-8418Zuhpllhte department patient visitRHONDA [facility] Centertart: 09-23-2024 End: 06-16-9546jqpfeukqmrSKZVFVWGH [facility] Start: 09-17-2024 End: 47-28-1482Icsrmj Lloyd Chacon MD Work Phone: noms ENT NORWALKStart: 09-17-2024 End: 41-07-4364Fvjrvf Lloyd Chacon MD Work Phone: noms ENT NORMIKAYLAKStart: 09-17-2024 End: 81-22-8260Cdhynr outpatient new 45 minutesSudheer Chacon MD Work Phone: noms ENT [facility] HOSPITALWALKComment on above:Right facial pain (Primary Dx)Start: 09-15-2024 End: 31-73-2298Buenydrje encounterLogan Schwjermain [facility] [address] Start: 09-14-2024 End: 51-46-5080Tcdreoqir encounterNicholas Kim RAMSEY IN NEUROStart: 09-13-2024 End: 96-81-2779Kydiwl flowsheetFelicia C Windnagel KALSOMINER Work Phone: noMS PCF NEUROLOGYStart: 09-13-2024 End: 18-02-5006Sxjvbs flowsheetFelicia C Windnagel KALSOMINER Work Phone: noMS PCF NEUROLOGYStart: 09-13-2024 End: 94-87-9175Silvyt outpatient visit 40 minutesFelicia C Windnagel KALSOMINER Work Phone: noms PCF NEUROLOGYComment on above:Occipital neuralgia of right side (Primary Dx); Trigeminal neuralgia of right side of face (CMS/HCC); DiplopiaStart: 09-08-2024 End: 26-98-8028Rfhbez outpatient visit 15 minutesCorey Addie DO Work Phone: NOM[facility] BCP OBComment on above:Irregular periods; PCOS (polycystic ovarian syndrome); Female infertility; Mood disorder (CMS/HCC)Start: 08-26-2024 End: 90-02-0904Yyeevlzcv encounterCharlotte AUSTIN Work Phone: [facility] Family MedicineStart: 08-25-2024 End: 50-95-2531Ouytabzvv Result EncounterAmy Marly CLOUD Work Phone: noMS External Department UnsolicitedStart: 08-25-2024 End: 82-01-2543Zbyhljsfj Result EncounterAmy Marly CLOUD Work Phone: noms External Department UnsolicitedStart: 08-24-2024 End: 30-88-7990Aetxkwdrf Result EncounterAmy Marly CLOUD Work Phone: noms External Department UnsolicitedStart: 08-24-2024 End: 20-22-0037Rjkfvtxsz Result EncounterAmy Marly CLOUD Work Phone: noms External Department UnsolicitedStart: 08-19-2024 End: 39-88-7595Dskvzq flowsheetAmy Marly CLOUD Work Phone: noms BCP OBStart: 08-19-2024 End: 03-55-0600Jndaztfbk Result EncounterAmy Marly CLOUD Work Phone: noms External Department UnsolicitedStart: 08-19-2024 End: 64-43-9997Tajwgzxjf Result EncounterAmy Marly CLOUD Work Phone: noms External Department UnsolicitedStart: 08-19-2024 End: 50-45-8667Dboazvs encounter procedureBarb CLOUD Work Phone: [facility] Work Phone: Start: 08-19-2024 End: 14-99-3237Xcnarhin preventive med est patient 18-39 yrsBarb CLOUD Work Phone: noms BCP OBComment on above:Well woman exam with routine gynecological exam; Irregular periods; PCOS (polycystic ovarian syndrome)Start: 08-17-2024 End: 02-79-9480Bcnadh flowsheetFelicia C Alexnagel KALSOMINER Work Phone: noms PCF NEUROLOGYStart: 08-17-2024 End: 11-24-3407Iyhqds flowsheetFelicia C Alexnagel KALSOMINER Work Phone: noms PCF NEUROLOGYStart: 08-17-2024 End: 68-50-4774Eugvmn outpatient visit 25 minutesFelicia Ladan Alexnagel KALSOMINER Work Phone: noms F NEUROLOGYComment on above:Occipital neuralgia of right side (Primary Dx); Diplopia; Dizziness; Saddle anesthesia; Chronic bilateral low back pain without sciaticaStart: 08-10-2024 End: 58-81-3091Hvhlxpi encounter procedureDIGN[facility] Ro Forte Work Phone: [facility] [place] Work Phone: Start: 08-10-2024 End: 33-51-9032sycljbkazaWYUTriHealth [facility] Work Phone: Start: 06-25-2024 End: 32-32-6201Ytsuwix encounter procedureDIGNITY [facility] Ro Forte Work Phone: [facility] [place] Work Phone: Start: 06-25-2024 End: 90-95-0851fhibpayfhrFKV [facility] Work Phone: Start: 06-18-2024 End: 67-14-0703Xzyfaq OnlyNot In System Ref ProvProMedica Physicians Behavioral HealthStart: 06-11-2024 End: 92-71-3933Bffkgbzgg encounterSdamien Yoon [facility] Behavioral HealthComment on above:referralStart: 05-31-2024 End: 40-54-8920jzegrftikfGFRRGHQ Ladan FORTEProMedica Adventist Health Delanotart: 07-08-2023 End: 16-39-1260Yzksqle encounter procedureJENNIFER E DONALDO [facility] start: 03-04-2023 End: 74-06-3963cvqyvbzczzKPZIM SHAMMOFacility:R1Knikl: 88-33-8394Wtotvgdth for general adult medical examination without abnormal findingsLUCAS SHAMMOThe [facility] HospitalStart: 02-25-2023 End: 35-31-0012mgirwfxderOKWLO SHAMMOFacility:S5Wlpbk: 02-25-2023 End: 68-84-7528Erpmjbpgn for general adult medical examination without abnormal findingsLUCAS SHAMMOFacility:W1Vxfob: 02-13-2023 End: 03-10-9163htxrbvogztAFDKR SHAMMOFacility:H1 Procedures DateProcedureProcedure DetailPerforming ClinicianStart: 42-18-9168OZG,APTIMA HPV,AGE GDLNBarb CLOUD Work Phone: Start: 05-14-2025 End: 19-98-4386Bwsmqzrzxvt diagnostic eval w/medical servicesGeneralized anxiety disorderShasara Lemus MD Work Phone: Comment on above:Generalized anxiety disorder (Primary Dx); Anxiety disorder, unspecified typeStart: 59-41-5045Sfput depression screening assessmentShasara Lemus MD Work Phone: Start: 12-14-2024 End: 99-73-0781Mat brain brain stem w/o w/contrast Danyel Mukherjee MD Work Phone: Start: 38-04-7678Iv soft tissue neck w/contrast Mark Chacon MD Work Phone: Start: 35-47-6781HDPM CBC W/ AUTO DIFFHilary Andrés Chacon MD Work Phone: Start: 71-73-4398QH PELVIS W/ TRANSVAGINALAmy Marly CLOUD Work Phone: Start: 53-60-9199WKM CBC WITH AUTO DIFFBarb CLOUD Work Phone: Start: 26-98-9886BLW,APTIMA HPV,AGE GDLNBarb Marly CLOUD Work Phone: Start: 30-65-5624Ffrxfzxuiiw observation [Identifier] in Cervix by Cyto stainCorey Addie DO Work Phone: Start: 33-79-5669OA lumbar spine wo conANP-BC Ro Windnagel Work Phone: Start: 70-59-2472VB pre/post mri xrayANP-BC Ro Windnagel Work Phone: Start: 06-41-1233DXQ of cervical spine without contrastANP-BC Ro Windnagel Work Phone: Start: 92-43-2029NQX REFERRAL TO PSYCHIATRYNot In System Ref ProvStart: 95-20-6000Ntvqnmvenkr observation [Identifier] in Cervix by Cyto stainFelicmariia Forte KALSOMINER Work Phone: Start: 33-35-2316Ntceogbhbub observation [Identifier] in Cervix by Cyto stainSdamien Sagastume RMADilation and curettageJENNIFER DONALDO HysterectomyJENNIFER DONALDO TonsillectomyJENNIFER DONALDO Plan of Treatment DateCare ActivityDetailAuthorStart: 72-73-1164Hjclw microalbumin profile DTaP,Tdap,Td Vaccine (2 - Td or Tdap)[facility]art: 05-80-2561Gsqmfznkw for malignant neoplasm of cervixNOMS HealthcareStart: 25-28-4455Ggxwnmdvy for malignant neoplasm of cervixPap SmearNOMS HealthcareStart: 02-21-2026 End: 94-50-5388Ggmjzeq encounter procedureNOMS SWS DERMStart: 10-04-2025 End: 31-31-0314Eyqzbaw encounter procedureNOMS [place] OBGYNComment on above: ArrivedStart: 09-29-2025 End: 03-37-4243Mtxljnr encounter procedureNOMS [place] OBGYNComment on above: ArrivedStart: 09-06-2025 End: 84-85-3851Kwvdxvv encounter xqjexoskw28/14/2025 7:30 AM EDT Office Visit [facility] [address] [address] Yaron Loza MD [address] [place], [place] [id number] referred for the following Dx: 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]Start: 40-87-2459Uwhzfjxbm for malignant neoplasm of cervixPap SmearSt Johnsbury HospitalSakti3 Health SystemStart: 06-02-2025 End: 51-06-6933hizyvuwiti49/10/2025 2:15 PM EDT OT/PT/Speech Visit [facility] [address] [place] [address] Jennifer Lopez PT [address] [place] [address] no copay Chronic migraine without aura, intractable, without status migrainosus [G43.719][facility] TherapyComment on above:no copay Chronic migraine without aura, intractable, without status migrainosus [G43.719]Start: 04-13-2025 End: 23-71-2664dyvxzcgfia14/21/2025 12:15 PM EDT OT/PT/Speech Visit [facility] [address] [place] [address] Jennifer Lopez, PT [address] [place] [address] Chronic migraine without aura, intractable, without status migrainosus [G43.719][facility] TherapyComment on above:Chronic migraine without aura, intractable, without status migrainosus [G43.719]Start: 04-05-2025 End: 68-77-7007Wgzsjg-up azzmmumvl11/13/2025 9:00 AM EDT [facility] Neurology Headache [facility] [address] [place] [address] Maggy Jacobo, FIBERGLASS FINISHER.[employer] [address] [place] [address] Follow upNeurology Headache [facility] HospitalCComment on above:Follow upStart: 03-15-2025 End: 73-03-7158Iqccqu-up yqumcubrj52/22/2025 11:30 AM EDT [facility] Neurology Headache [facility] [address] [place] [address] Maggy Jacobo, FIBERGLASS FINISHER.[employer] [address] [place], [place] [address] Follow up - wooshing sound in ears, and head and neck painNeurology Headache [facility]ty HospitalCComment on above: Follow up - wooshing sound in ears, and head and neck painStart: 02-21-2025 End: 79-25-8660JEM Breast - bilateral diagnosticBilateral diagnostic mammogram with tomosynthesis Imaging Routine Mass of right breast, unspecifiedquadrant Expected: 02/21/2025, Expires: 04/23/2026[facility] Work Phone: comment on above:Expected: 02/21/2025, Expires: 04/23/2026Start: 02-21-2025 End: 87-89-9675Rzphnig encounter aoaoxubzf82/31/2025 1:30 PM EDT Office Visit [facility] [address] [place] [address] Thien Silva MD [address] [place] [address] Well woman exam with routine gynecological examNOMS [facility] Comment on above:Well woman exam with routine gynecological examStart: 02-15-2025 End: 86-71-2011Ncbmqty encounter uwekwyrmr59/25/2025 9:20 AM EDT Office Visit [facility] S[facility] DERM [address] [place] [address] Bruno Frost MD [address] [place] [address] [facility] DERMStart: 01-06-2025 End: 96-20-0777Nbbjhcl encounter aepehlaww78/13/2025 8:00 AM EST [facility] Neurology [address] [place] [address] aMggy Jacobo APRN.[employer] [address] [place], [place] [id number] NeurologyStart: 12-14-2024 End: 72-03-9962Aaupdyo encounter procedureRadiologyComment on above:Right trigeminal neuralgia [G50.0]Start: 11-09-2024 End: 24-23-4309Cphtwju encounter pvdnovtej60/17/2024 3:00 PM EST Office Visit [facility] [address] [place] [address] Zac Tay, [address], [place] [address] [facility] Family MedicineStart: 10-19-2024 End: 43-65-3752Lmfkjpz encounter rdtsfqzta15/26/2024 10:20 AM EST Office Visit [facility] [place] [address] [place] [address] Francine Mallory PA [address] [place] [address] [facility] [place] [facility] ROUTEStart: 10-18-2024 End: 72-67-4885Bwthmla encounter indnvofut70/25/2024 9:40 AM EST Office Visit [facility] [address] [facility] [address] [place] [phone] Sudheer Chacon MD [address] [facility] [address] [place], [place] [address] [facility] ENT NORWALKStart: 10-13-2024 End: 78-73-2117Hnbulxk encounter ionuolulo59/20/2024 1:10 PM EST Office Visit [facility] [address] [phone] Barb Luke PA [address] [place] [address] ArrivedNOMS BCP OBComment on above:ArrivedStart: 10-07-2024 End: 27-82-1904Pbqeyus encounter gtmgmubuj58/14/2024 12:20 PM EST Office Visit [facility] [address] [facility] [address] [place] [phone] Francine Mallory PA [address] [place] [address] NEUROLOGYStart: 10-05-2024 End: 63-52-9293Omirhba encounter ojiryaims87/12/2024 8:10 AM EST Office Visit [facility] [address] [facility] [phone] Jeremy Real, DO [address] [facility] [place] [address] NOMS BCP OBStart: 10-01-2024 End: 54-97-0728Drrvixg encounter drldqomuw20/08/2024 8:30 AM EST Office Visit [facility] [address] [place] [address] Sudheer Chacon MD [address] [facility] [address] [place] [address] ArrivedNOMS ENT NORWALKComment on above:ArrivedStart: 09-27-2024 End: 87-60-8765Nwujmfsuedsi / ancillary services pueyvhoeph76/04/2024 3:15 PM EST Ancillary Procedure [facility] [address] [place] [phone] [facility] FNR MRStart: 09-17-2024 End: 65-18-1753Bcknpfj encounter procedureNOMS ENT NORWALKComment on above: ArrivedStart: 09-13-2024 End: 77-21-5244Csrorpm encounter lbknagypj48/21/2024 1:40 PM EDT Office Visit [facility] [address] [place] [address] Ro Forte, KALSOMINER [address] [place] [address] ArrivedNOMS PCF NEUROLOGYComment on above:ArrivedStart: 09-08-2024 End: 60-33-6056Hwgefcv encounter /16/2024 11:10 AM EDT Office Visit [facility] [address] [facility] [phone] Jeremy Real, DO [address] [place] [address] [facility] BCP OBStart: 08-19-2024 End: 19-18-0886Ynsjq 1996 panel - Serum or PlasmaLipid panel Lab Routine Well woman exam with routine gynecological exam Expected: 08/19/2024 (Approximate), Expires: 08/19/2025NOIL HealthcareComment on above:Expected: 08/19/2024 (Approximate), Expires: 08/19/2025Start: 08-19-2024 End: 46-86-4032ZD for pregnancyUS PELVIS-TRANSVAG IF INDICATED Imaging Routine Irregular periods Expected: 08/19/2024 (Approximate), Expires: 08/19/2025NOIL HealthcareComment on above:Expected: 08/19/2024 (Approximate), Expires: 08/19/2025Start: 08-19-2024 End: 02-78-9247Uviyuuj encounter procedureNOMS BCP OBComment on above:Arrived Start: 99-53-4786Yqfii-19 Vaccine ( season)Covid-19 Vaccine ( season)[facility]: 24-26-3456WQJQP-19 Vaccine ( season)COVID-19 Vaccine ( season)[facility]: 76-24-4638NOLQK-19 Vaccine ( season)COVID-19 Vaccine ( season)[facility]: 38-40-9523Udjbjdmsx vaccinationNOIL HealthcareStart: 13-40-1203Gzobcvn ScreeningTobacco ScreeningDayton Osteopathic Hospital SystemStart: 18-85-2344HFRWH-19 Vaccine ( season)COVID-19 Vaccine ( season)[facility]: 24-74-8482Skppc BMI Screening Adult BMI ScreeningDayton Osteopathic Hospital SystemStart: 73-43-0793JFM Vaccine (1 - 3- dose SCDM series)HPV Vaccine (1 - 3-dose SCDM series)[facility]: 37-61-6254FLJ Vaccines (1 - 3-dose SCDM series)HPV Vaccines (1 - 3-dose SCDM series)[facility]: 91-95-5547Npvigzoyz for malignant neoplasm of cervixCervical Cancer ScreeningGrant [facility]: 84-56-5447Khwvwfitm B Vaccine (1 of 3 - 19+ 3-dose series)Hepatitis B Vaccine (1 of 3 - 19+ 3-dose series)[facility]: 40-29-9626Yobmygrmr B Vaccines (1 of 3 - 19+ 3- dose series)Hepatitis B Vaccines (1 of 3 - 19+ 3-dose series)[facility] Start: 22-28-3494[place]os microalbumin profileDTaP,Tdap,Td Vaccine (1 - Tdap) [facility]: 15-95-2116Rthhkgo ScreeningAnxiety Screening[facility]: 13-96-9126Grcnxkdddb ScreeningDepression ScreeningMer[facility] Start: 49-55-2209Aaasjjsjy C screeningHepatitis C ScreeningMer[facility] Start: 09-30-0331XGO screeningHIV ScreeningGrant [facility]: 2002 History of varicella vaccinationVaricella Vaccines (1 of 2 - 13+ 2-dose series) [facility]: 94-32-4335Rdkacqetqd ScreeningDepression Screening [facility]: 97-88-2686Gjgsbzh ScreeningTobacco Screening [facility]: 47-22-0719WShI,Tdap and Td Vaccines (6 - Tdap) DTaP,Tdap and Td Vaccines (6 - Tdap)[facility] 1996 DTaP/Tdap/Td Vaccines (1 - Tdap)DTaP/Tdap/Td Vaccines (1 - Tdap)[facility] Start: 45-22-9306MPG Vaccines (1 of 1 - Standard series)MMR Vaccines (1 of 1 - Standard series)[facility] Auto Differential panel - BloodCBC and differential Lab Routine Well woman exam with routine gynecological exam Ordered: 08/19/2024[facility] HealthcareComment on above:Ordered: 08/19/2024 Comprehensive metabolic 2000 panel - Serum or PlasmaComprehensive metabolic panel Lab Routine Well woman exam with routine gynecological exam Ordered: 0 08/19/2024[facility] HealthcareComment on above:Ordered: 08/19/2024ytology Cervical or vaginal smear or scraping studyPap Smear Pathology and Cytology Routine Well woman exam with routine gynecological exam Ordered: 08/19/2024[facility] Work Phone: comment on above:Ordered: 08/19/2024ytology Cervical or vaginal smear or scraping studyPap Smear Pathology and Cytology Routine Well woman exam with routine gynecological exam Ordered: 09/29/2025[facility] Work Phone: comment on above:Ordered: 09/29/2025Hemoglobin A1c/Hemoglobin.total in BloodHemoglobin A1c Lab Routine Well woman exam with routine gynecological exam Ordered: 08/19/2024[facility]lin[facility] on above: Ordered: 08/19/2024Human papilloma virus DNA [Presence] in Unspecified specimen by Probe with amplificationHPV DNA probe, amplified Microbiology Routine Well woman exam with routine gynecological exam Ordered: 08/19/2024[facility] Comment on above:Ordered: 08/19/2024Human papilloma virus DNA [Presence] in Unspecified specimen by Probe with amplificationHPV DNA probe, amplified Microbiology Routine Well woman exam with routine gynecological exam Ordered: 09/29/2025[facility]lin[facility] on above:Ordered: 09/29/2025MR Brain WO and W contrast IVMR brain w and wo contrast routine Imaging High Priority Trigeminal neuralgia of right side of face(CMS/HCC) Ordered: 09/13/2024[facility] Work Phone: comment on above:Ordered: 09/13/2024 End: 77-59-4911NE Brain WO and W contrast IVMRI BRAIN WO/W IVCON Radiology Routine Right trigeminal neuralgia 1 Occurrences starting 11/23/2024until 12/23/2025[facility] Work Phone: comment on above:1 Occurrences starting 11/23/2024 until 12/23/2025 End: 66-36-8211WYF Head vessels WO contrastMRA BRAIN WO IVCON Radiology Routine Right trigeminal neuralgia 1 Occurrences starting 11/23/2024 until 12/23/2025 [facility] HospitalComment [facility] above:1 Occurrences starting 11/23/2024 until 12/23/2025Thyrotropin [Units/volume] in Serum or PlasmaTSH Lab Routine Well woman exam with routine gynecological exam Ordered: 08/19/2024[facility] Comment on above:Ordered: 08/19/2024 Immunizations Immunization DateImmunizationNotesCare KtsptvkbLxipicmo17-11-0760qboivlyre virus vaccine, unspecified formulationSdustyrobbie Sagastume [facility] Payers DatePayer CategoryPayerPolicy [id number] Cross Blue [id number] [facility] - PPOANTHEM [id number]2-7549Ovdumix 1.2840.826310.1.13.693.2.7.3.668[id number] 2.0.1.371333.3.57[id number] 2..1.977121.3.57[id number] 2..1.414731.3.57[id number] 2.16.840.1.095661.3.57[id number] 2.16.840.1.425773.3.57[id number] 2.16.840.1.251477.3.57[id number] 2.16840.1.275087.3.57[id number] 2.16.840.1.179261.3.57[id number] 2.16.840.1.108965.3.57[id number] 2.0.1.280645.3.57[id number] 2.840.1.031754.3.57[id number] 2.840.1.136361.3.57[id number] 2.840.1.079241.3.579.2.[id number] [id number] 2.840.1.0[id number] 2.840.1.730788.3.579.2.531 Social History DateTypeDetailFacilityTobacco smoking statusExecutive Urology of [facility] start: 04-28-2024 End: 73-34-1889Vfl Assigned At BirthFeGenesis Hospitaltart: 93-89-2142Hzw Assigned At BirthFeTrinity Health System East Campustart: 07-01-2024 End: 37-83-3745Gxaycep smoking status NHISEx-smokerNOMS HealthcareStart: 07-25-2007 End: 80-93-5220Rytekts of tobacco useCurrent smokerNOMS HealthcareStart: 07-25-2007 End: 98-48-8058Loerzkg of tobacco useCigarette SmokerNOMS HealthcareStart: 07-01-2024 End: 96-81-0824Qzcurzgfgg smoked current (pack per day) - Reported1.5N[facility] HealthcareStart: 07-01-2024 End: 17-42-0345Rpjtqxw use and exposureSmokeless tobacco non-userNOMS Healthcare Start: 08-19-2024 End: 44-03-1242Wmkkethtg beverage intakeCurrent drinker of alcohol (finding)[facility] HealthcareHow often to you have a drink containing alcohol?Monthly or lessNOMS HealthcareHow many standard drinks containing alcohol do you have on a typical day?1 or 2NOMS HealthcareHow often do you have 6 or more drinks on 1 occasion? NeverNOMS HealthcareStart: 59-90-1217Oggfup identityIdentifies as female gender (finding)[facility] HealthcareStart: 46-14-7623Umqhrl orientationHeterosexual (finding)[facility] HealthcareStart: 82-33-9111Jsbxsfq smoking status NHISTobacco smoking consumption unknownGrant [facility]: 03-27-2023 End: 05-97-1064Gaadw Depression Screening Qwjardtkhr0Twhameaug ClinicStart: 82-86-3050Dga assigned at birthNot on fileVernon ClinicStart: 12-25-2016 Tobacco smoking status NHISSmokes tobacco dailyProMedica Health SystemStart: 37-96-1957Owfdtyc CommentrareProMedica Health SystemStart: 68-40-8314Mxbwixpex beverage intakeEx-drinker (finding)[facility] HealthcareStart: 09-46-3589Kankwtpla beverage intakeLifetime non-drinker (finding)[facility]Start: 06-27-2015 SexFemale (finding)[facility] Clinical Notes 06-11-2024 to 09-29-2025 Note Date & EnpdQdfkIhsuyoho55-41-8394 History of Present illness Narrative* Poonam Cowan, CUPOLA HOIST OPERATOR - 09/29/2025 11:00 AM EST Reason for Appointment: Patient ID: Kierra Natarajan is a 34 y.o. female who [...] bowel syndrome Mother Jose Miguel Depression Mother Jos Emiguel Cancer Mother Jose Miguel Hypertension Mother Jose [...] nursing note reviewed. Exam conducted with a fusion juncture grinder present. Vitals: Estimated body mass index is 38.43 kg/m as calculated from the following: Height [...] behalf of: AI Echols documented in this encounterMercy Hospital JoplinUqhelqpuqf59-45-7915 NoteHNO ID: [id number] Author: YARON LOZA MD Service: ? Author Type: Physician Type: Progress Notes Filed: 09/06/2025 14:37 Note Text: Kierra Natarajan is a 34 year old right-handed woman who presents for diplopia. The patient was referred by Dr. Avery Mai. At initial consultation on September 06, 2025, the patient reported developing diplopia in August 2024 about one month after hitting her head on a dock. She reported variable orientation of the diplopia as it could be horizontal, vertical, as well as oblique diplopia at different times. It did not resolve with monocular occlusion. While the diplopia was worse beyond 10-15 feet, she reported that she had always seen double at near described as the eyes fighting which one it wanted to look through. The patient did not report a history of patching or eye alignment surgery though she had done convergence insufficiency exercises around age 11 for unclear reason. The patient did report concern regarding swelling of the right lid in the setting of hemicrania continua. No other definite features suggestive of underlying neuromuscular fatigability. The patient reported being aware that she has a head tilt. The diplopia was worse in the evening. Work up thus far has included neuroimaging. She was additionally diagnosed with hemicrania continua. The patient's ophthalmic history was otherwise reportedly unremarkable. Thorough review of the patient's medical, family, surgical and social history was performed along with medications, allergies, labs and imaging (if applicable). 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 This was an undilated exam given the chief complaint of diplopia, but I advised follow up with the patient's primary eye doctor for routine dilated exam. Sensorimotor exam showed a convergence insufficiency pattern exodeviation of 2-4 PD distance and 12 PD at near; this was consistent with her reported history of a convergence insufficiency as a child. Discussed that she could consider prismatic reading glasses if diplopia at near remained an issue. Neutralization at distance specifically - the reason for presentation - caused diplopia that she otherwise denied on exam so it would not be indicated and moreover would not be consistent therefore with her actual symptoms - particularly as it is monocular. I did not expect a neuro-ophthalmic etiology underlying the monocular diplopia. To be comprehensive, given the variability in the orientation of her diplopia I ordered a myasthenia and thyroid panel - with results to be communicated via [employer]. I advised as needed follow up with neuro-ophthalmology and continued follow up as scheduled with her referring provider and primary eye doctor for ongoing dilated eye exams. I encouraged her to please contact me if I can be of any assistance in the future. Yaron Loza MD 2:36 PM 09/06/2025 FOR ADMINISTRATIVE PURPOSES ONLY: My impression of this case is based upon an assessment of the the patient's subacute on chronic problems listed above that pose a threat to visual and neurologic function. 60 minutes were spent on total patient care on the day of service that includes both wrzi-od-zzwi and ooi-ooat-oy-face time. This time was separate from any of my time spent completing and interpreting the ancillary testing (such as OCT, fundus photos, visual cali) and sensorimotor exam, if applicable. This time was broken down into: 5 minutes reviewing the patient record before the visit, 19 minutes performing a medically appropriate neuro-ophthalmic history and exam (excluding time spent on the ancillary testing and sensorimotor exam, if applicable), 10 communicating results to the patient/family, 10 minutes counseling / educating the patient, 10 minutes documenting clinical information into the electronic health record of the patient, 1 minute ordering tests/medications/procedures, and 5 minutes coordinating care for the patient. I communicated with Dr. Mai and Dr. Leos regarding the management of this patient. The assessment and plan were discussed extensively with the patient who was amenable and voiced understanding.[facility]08-22-2025 Telephone encounter Note* Telephone Encounter - John Cali - 07/15/2025 2:47 PM EDT Patient last seen on 07/05/25 [facility]08-22-2025 Miscellaneous Notes* Telephone Encounter - John Cali - 07/15/2025 2:47 PM EDT Patient last seen on 07/05/25 documented in this encounterMer[facility] Health [facility]08-21-2025 NoteFamily Medicine - Outpatient visit 07/14/2025 ELEAZAR NATARAJAN is a 34 y.o. female who presents to the clinic today for annual physical, chronic disease management, discuss recent neurology visit and hemicrania continua, night terrors and anxiety. 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 She has been seeing [facility] neurologist. She just had appointment on July 05 and they felt that she may have hemicrania continua. Wanted to try an indomethacin trial. Just in the first couple days of taking the first tear of the indomethacin she has noticed huge improvement which has been extremely exciting. She is getting just a little bit of upset stomach which makes her nervous because she supposed to increase the dose here shortly. He gave her some omeprazole but she has not started it yet. She has been taking Lexapro for anxiety which has worked very well for her. Seems like every evening around 7-8 pm or so she gets an anxiety attack. She does have hydroxyzine that she takes which helps a little bit but it is a 10 mg and feels like a good be a little bit better. She has been having just a little bit of diarrhea from the Lexapro but it has been very beneficial. We discussed some options. Has a history of vitamin D deficiency that needs to be rechecked, hypomagnesemia as well. She does have allergies which contributes to sinus pressure and we discussed using Flonase regularly. She has had nightmares almost all her life and some can be rather traumatic. She is a former smoker. She smoked a half a pack a day for about 16 years. She was able to just quit smoking recently and so far is doing okay. She does not drink alcohol but may be 2 or 3 times a year if that. Encouraged her regular exercise. She does not need any vaccines currently. She is due for full blood screening. She is due to see [employer]. She does have underlying polycystic ovarian syndrome. Current and New Medications started: Current Outpatient Medications on File Prior to Visit Medication Sig azelastine (Astelin) 137 mcg (0.1 %) nasal spray Administer 1 spray into each nostril two times daily. Use in each nostril as directed baclofen (Lioresal) 5 mg tablet Take 5 mg by mouth three times daily. PRN cetirizine (ZyrTEC) 10 mg tablet Take 1 tablet (10 mg) by mouth in the morning. clindamycin (Cleocin T) 1 % lotion APPLY THIN LAYER TO AFFECTED AREA ONCE DAILY NEEDED FOR FLARES indomethacin (Indocin) 25 mg capsule Take 25 mg by mouth with breakfast, with lunch, and with evening meal. Patient reports dosage varies metFORMIN (Glucophage) 500 mg tablet niacin 500 mg ER capsule Take 500 mg by mouth in the morning. Do not crush, chew, or split. NON FORMULARY Take by mouth. Patient taking Vitamin D3 unknow dose [DISCONTINUED] escitalopram (Lexapro) 5 mg tablet Take 1 tablet (5 mg) by mouth in the morning. [DISCONTINUED] fluconazole (Diflucan) 150 mg tablet Take 150 mg by mouth 1 (one) time. [DISCONTINUED] fluconazole (Diflucan) 150 mg tablet Take 1 tablet (150 mg) by mouth every 3rd (third) day. [DISCONTINUED] fluticasone (Flonase) 50 mcg/actuation nasal spray Administer 1 spray into each nostril two times daily. Shake gently. Before first use, prime pump. After use, clean tip and replace cap. [DISCONTINUED] hydrOXYzine HCL (Atarax) 10 mg tablet TAKE 1 TABLET BY MOUTH EVERY 8 HOURS NEEDED FOR ITCHING AMOXICILLIN 100 MG-POTASSIUM CLAVULANATE 14.25 MG CHEWABLE SPLIT TABLET (Augmentin) (Patient not taking: Reported on 07/14/2025) carBAMazepine (Carbatrol) 300 mg 12 hr capsule Take 300 mg by mouth two times daily. cyclobenzaprine (Flexeril) 5 mg tablet Take 1 tablet 3 times a day by oral route as needed for 3 days. (Patient not taking: Reported on 07/14/2025) ibuprofen 800 mg tablet Take 800 mg by mouth. (Patient not taking: Reported on 07/14/2025) OXcarbazepine (Trileptal) 600 mg tablet Take 1 tablet (600 mg) by mouth two times daily. (Patient not taking: Reported on 07/14/2025) rizatriptan (Maxalt) 10 mg tablet Take 1 tablet (10 mg) by mouth 1 (one) time if needed for migraine. May repeat in 2 hours if unresolved. Do not exceed 30 mg in 24 hours. No current facility-administered medications on file prior [...] for chest pain, palpitations and leg swelling. Loretta (more content not included)...[facility]08-12-2025 Instructions* Patient Instructions* Avery Gaines, - 07/05/2025 2:00 PM EDT INDOMETHACIN Dosing Schedule: This will be a 15 day indomethacin trial. There are 2 headache types that respond characteristically to indomethacin and they are known as the indomethacin-sensitive headaches. These 2 headache typesare Hemicrania Continua and Paroxysmal Hemicrania. We are doing this trial to make sure you don't have one of these headache types. While taking indomethacin, do not use any NSAIDS (non-steroidal antiinflammatory drugs) such as aspirin (unless needed for medical purposes), ibuprofen (advil, motrin), and naproxen (aleve), etc. Days 1- 5: -Please obtain generic omeprazole (20 mg) [Fliptop, [employer], [employer], [employer], etc.] and start one daily. -Please start indomethacin (indocin) 25 mg (one capsule) 3 times per day with meals. -If, in 5 days, you are headache-free, this is your dose, stay on it and call me. -If, in 5 days, you are tolerating the indocin, but have headache, then increase the dose as below. Days 6-10: -Please increase indocin to 50 mg (2 capsules) 3 times per day with meals. -If, in 5 days, you are headache-free, this is your dose, stay on it and call me. -If, in 5 days, you are tolerating the indocin, but have headache, then increase the dose as below. Days 11-15: -Please increase indocin to 75 mg (3 capsules) 3 times per day with meals. -If, in 5 days, you are headache-free, this is your dose, stay on it and call me. -If, in 5 days, you have partial relief, call or see me per our appointment. -If, in 5 days, you have no relief, stop the indocin and call me. If the Indocin trial does not help, we'll target your headaches as a combination of chronic migraine, right occipital neuralgia, and cervicogenic headache as below. Headache Preventive Treatment (What to take on a daily basis to try to lessen frequency and/or intensity of headache): *Please keep in mind that it takes 4-6 weeks for the medication to start working well and 2-3 months at the appropriate dose before deciding if it will be useful or not. If it is not helping at all by this time, then we will discuss other medications to try. Supplements may take 3-6 months until you see full effect. 1) We'll discuss a different daily preventive depending on Indocin trial. 2) Consider adding supplements: Magnesium 400-800 mg daily. Magnesium glycinate is a good choice for those with a sensitive stomach who have gastrointestinal side effects such as diarrhea with other forms of magnesium. It is anecdotally also helpful with anxiety and sleep. Magnesium threonate also has low risk of gastrointestinal side effects and anecdotally helpful with cognitive function and brain fog symptoms. Magnesium malate has low gastrointestinal side effects and is reportedly more energizing and anecdotally often helpful in fibromyalgia and chronic fatigue syndrome. Magnesium citrateis one of the most studied, popular, and well-absorbed forms of magnesium. It can also be mixed easily with liquids if you can t take pills. However, it comes with a higher risk of diarrhea and gastrointestinal side effects, although this could be helpful for those with constipation. Magnesium oxide is also well studied, cheap, and often used for heartburn and indigestion. However, it is not wellabsorbed and can have some laxative side effects as well, so can also be helpful for constipation. O ther supplements to consider would be Coenzyme Q10 200 mg (or 150 mg) twice daily (or Qunol brand 100 mg daily) +/- Riboflavin (Vitamin B2) 400 mg daily (or 200 mg twice daily). You can sometimes buysupplements cheaper (especially Coenzyme Q10) at www.[employer] or at [employer]pt[employer]. General Headache Instructions: 1) Maintain a headache diary; learn to identify and avoid triggers. 2) Limit use of acute treatments (itdc-jeq-eczekrc medications, triptans, etc.) to no more than 2 days per week or 10 days per month to prevent medication overuse headache (rebound headache). 3) Follow a regular schedule (including weekends and holidays) for the next 6 weeks: A) Don't skip meals. B) 8 hours of sleep nightly. C) Avoid the following common headache triggers: -Caffeine (coffee, chocolate, tea, cola/pop/soda (7-up, Sprite, Yanely Mist, Inez Kalpana, Mug/A+W Root Beer, Minute Maid [place], Slice are okay)) -Foods containing nitrates (deli meat, ham, guerrero, sausage, hot dogs) -Tyramine (aged cheese; can only have Montserratian cheese, cottage cheese, Velveeta and fresh mozarella(most pizza uses aged mozarella)) -MSG (Nauruan/ foods, Doritos, all flavored chips and Ramen noodles) -Nutrasweet and artificial sweeteners D) Minimize stress. E) Exercise 30 minutes per day. Being overweight is associated with a 5 times increased risk of chronic migraine. F) Keep well hydrated and drink 6-8 glasses of water per day. 4) Initiate non-pharmacologic measures at the earliest onset of your headache. A) Rest and quiet in a cool, dark environment. B) Relax and reduce stress. C) Cold compress to head (place a dry washcloth to forehead, cover with a blue freezer packet and use a headband to press the freezer packet across the forehead and temples). 5) Don't wait!! Take the maximum allowable dosage of prescribed medication at the very earliest sign of headache. 6) Compliance: Take prescribed medication regularly as directed and at the first sign of a headache. 7) Communicate: Call your physician when problems arise, especially if your headaches change, increase in frequency/severity, or become associated with neurological symptoms (weakness, numbness, slurred speech, etc.). 8) Headache/pain management therapies: Consider various complementary methods, including medication, behavioral therapy, psychological counselling, biofeedback, massage therapy, acupuncture, and other modalities. Such measures may reduce the need for medications. Counseling for pain management, where patients learn to function and ignore/minimize their pain, seems to work very well. 9) Recommend changing family's attention and focus away from patient's headaches. Instead, emphasize daily activities. If first question of day is 'How are your headaches/Do you have a headache today?', then patient will constantly think about headaches, thus making them worse. Goal is to re-directattention away from headaches, toward daily activities and other distractions. Avoiding Medication Overuse Headache (Rebound Headache): Based on current research, the types of medications and their frequency of use which converts a previously episodic headache (particularly migraine) into a chronic daily headache (any headache occurring 15 or more days per month for at least 4 hours per day) are as follows: ---> Over the counter medications, NSAIDS and combination analgesics: -More than 2 days per week, or more than 10 days per month. -These include medications such as Acetaminophen (Tylenol), Naproxen (Aleve), Ibuprofen (Advil, Motrin), Acetaminophen/Caffeine (Excedrin), Acetaminophen/Dichloralphenazone/Isometheptene (Midrin), Aspirin (ok to continue if taking for medical reasons), cold remedies and sleep-promoting agents, among others. ---> Triptans: -More than 2 days per week, or more than 10 days per month. -These include Sumatriptan (Imitrex), Sumatriptan/Naproxen (Treximet), Rizatriptan (Maxalt), Almotriptan (Axert), Zolmitriptan (Zomig), Eletriptan (Relpax), Naratriptan (Amerge), Frovatriptan (Frova). ---> Opiates/Opioids (Narcotics): -8 days or more per month. Some research suggests that even infrequent use of these medications makes migraine specific medications such as triptans and NSAIDs less effective. -These include any narcotics such as Acetaminophen/Hydrocodone (Vicodin), Acetaminophen/Oxycodone (Percocet), Acetaminophen/Propoxyhene (Darvocet), Acetaminophen/Codeine (Tylenol #3, #4), Tramadol (Ultram), Acetaminophen/Tramadol (Ultracet), Oxycodone (OxyContin), Hydromorphone (Dilaudid), Fentanyl, Butorphanol (Stadol), Morphine or any form of a Morphine derivative. ---> Butalbital containing medications: -5 or more days per month. As you can see, these are the worst offenders. -These include Acetaminophen/Butalbital/Caffeine (Fioricet, Esgic) Acetaminophen/Butalbital/Caffeine/Codeine (Fioricet with Codeine), Aspirin/Butalbital/Caffeine (Fiorinal), Aspirin/Butalbital/Caffeine/Codeine (Fiorinal with Codeine). Vitamins and herbs that show potential for migraine prevention: Magnesium: Magnesium (250 mg twice a day or 500 mg at bed) has a relaxant effect on smooth muscles such as blood vessels. We often give intravenous magnesium to patients who come into the emergency department for migraine because it helps to break the migraine. Three trials found 40-90% average headache reduction when used as a preventative. Magnesium also demonstrated the benefit in menstrually r elated migraine. Magnesium is part of the messenger system in the serotonin cascade and it is a good muscle relaxant. It is also useful for constipation which can be a side effect of other medications used to treat migraine. Good sources include nuts, whole grains, and tomatoes. Coenzyme Q10: This is present in almost all cells in the body and is critical component for the conversion of energy. Recent studies have shown that a nutritional supplement of CoQ10 can reduce the frequency of migraine attacks by improving the energy production of cells as with riboflavin. Doses of 200 mg (or 150 mg) twice a day have been shown to be effective. Riboflavin (Vitamin B2): 200 mg twice a day (or 400 mg daily). This vitamin assists nerve cells in the production of ATP, a principal energy storing molecule. It is necessary for many chemical reactions in the body. There have been at least 3 clinical trials of riboflavin using 400 mg per day all of which suggested that migraine frequency can be decreased. All 3 trials showed significant improvement in over half of migraine sufferers. The supplement is found in bread, cereal, milk, meat, and poultry. Most Americans get more riboflavin than the recommended daily allowance, however riboflavin deficiency is not necessary for the supplements to help prevent headache. Feverfew: Feverfew is a common garden herb [place] to [place] and popular in [place] as a treatment for disorders typically controlled by aspirin. The mechanism of action is unknown but is believed to be related to a chemical called parthenolide which helps the body use serotonin more effectively. Serotonin helps prevent migraine and assists with resolution when it occurs. Parthenolide also inhibits the release of histamine which is linked to pain and inflammation. Consistency of active ingredients in different products can be a problem. Some formulations don't have the active ingredient (parthenolide) that prevents migraine. A parthenolide content of 0.2% is generally recommended. Typical dosage is one capsule 3 times a day. Butterbur: This is an extract derived from the petisides hybridus root, which has been used for medicinal purposes since ancient times. A recent study found that 75 mg daily given over 4 months reduced headache frequency by 50% or more in over two thirds of the 245 patient studied. The 50 mg dose showed no significant effect. Side effects were infrequent, and the most common and unusual includes burping/belching. Raw moses root contains toxic chemicals that must be filtered out during the manufacturing process. To be sure you are choosing a safe product. Look for a formulation that does not contain pyrrolizidine alkaloids which are toxic to the liver. Melatonin: Increasing evidence shows correlation between melatonin secretion and headache conditions. Melatonin supplementation has shown decreased headache intensity and duration. It is widely used as a sleep aid. Sleep is nature's way of dealing with migraine. A dose of 3 mg is recommended to start for headaches including cluster headache. Higher doses up to 15 mg has been reviewed for use in Cluster headache and have been used. The rationale behind using melatonin for cluster is that many theories regarding the cause of Cluster headache center around the disruption of the normal circadian rhythm in the brain. This helps restore the normal circadian rhythm. It should be taken at least 2 hours before bedtime. Inez: Inez has a small amount of anti-histamine and anti-inflammatory action which may help headache. It is primarily used for nausea and may aid in the absorption of other medications. HEADACHE EXPECTATIONS: There are many types of headaches, and only a rare few in which complete relief can be expected. Ingeneral, there is no cure for headache, especially migraine based headaches. There is nothing available that completely prevents headaches from occurring, breaking through, or having periodic flare-ups and fluctuations. Regardless of what you are using on a daily basis for prevention, episodic heada ches should still be expected, and periods where frequency may escalate and fluctuate are unavoidable. There is no quick fix for most headaches. Furthermore, the longer you have had high frequency headaches (such as chronic daily headache), the longer it will likely take to expect any improvement. In fact, some people will never improve, regardless of how many medications or other treatments we try.Our treatment strategy is to evaluate for possible causes of your headache, although testing is usually always normal, even in cases of daily continuous headaches for years. Most types of headache such as migraine are electrical brain disorders (similar to how epilepsy is an electrical brain disorders). Therefore, there is no testing that will reveal this dysfunctional electrical circuitry suchon MRI, or other testing. We try to find a medication that may help lessen the frequency and/or severity of your headaches. The goal is not to completely stop them from happening, although if that happens, great! Different people respond to different medications, and some people just don't respond to anything, so it's usually a matter of trying different options. We can not predict if or when exac tly you will respond to a treatment that we provide. Preventive headache medications take 4-6 weeks to start working, and 2-3 months to see full effect,assuming you reach an effective dose. Therefore, calling or messaging frequently because you have aheadache flare prior to the 3 month jennifer is unlikely to change anything, and unfortunately there isnothing available that will expedite this, so please try to avoid this. Our recommendation will gene rally be to give it adequate time first. If you are unable to wait it out for medications to work, we can also try IV infusions for some temporary relief. Or, we offer our 3 week outpatient chronic daily headache program (IMATCH) to help you better learn how to function and deal with chronic headache issues. In general, the best that preventive medications or other treatments (including Botox) are able to offer in migraine management (variable in other headache types) is a 50% improvement in frequency and/or severity of headache. That is our goal, and any additional benefit is considered a bonus. Some people do significantly better than this, others do not get close to this. Therefore, if your headaches are not improving by at least 3 months on your preventive strategy, contact us and we can discuss further adjustments. Keep in mind that complete headache cure is not a realistic expectation. MYCHART, PHONE CALLS, TESTING RESULTS: Please understand that we rely heavily and work closely with our nursing team to assist us in managing your telephone calls, test results, and refills. Due to the volume of daily phone calls, messages, and schedules, it is impossible for us to personally call patients back through the day. We do receive your messages, which are very important to us, and respond most often through our nursing teamto help relay our message and response back to you. The main way of communication is by MyChart rather than phone lines, so if you have not signed up, please do so. MyChart is also the way that you can review your labs and testing. We are not able to contact everyone to tell them results are normal. If you do not hear back from us regarding testing you have had, it should be considered normal or within normal range. If you have any questions aboutthe results, you are free to message us. MyChart is meant for simple questions regarding medications, possible side effects, or other simplestraight forward questions in limited sentences, rather than multiple paragraphs of discussion. MyChart is not meant for, safe, or efficient for these complex questions, extensive questions, extensive medication adjustments, complex new symptoms or concerns. These issues beyond simple questions require a follow up visit with myself, one of our physician assistants, nurse practitioners, or a Virtual Visit via computer or smart phone, as detailed further down. REFILLS: Please pay attention to when your refills will need to be renewed. Due to the volume of phone callsdaily, this could potentially take a few days, although we certainly try to honor your refill requests as soon as we can. You should call at least 1 week in advance of needing a refill to ensure you do not run out of medication. Keep in mind that refill requests on Fridays may not be filled until the following week. BOTOX: If you are receiving Botox treatments, please check with your insurance company before and following each treatment appointment to ensure that you still have pre-approved coverage for your next Botoxappointment in 3 months. If your coverage has run out, and a new prior authorization is required tocontinue Botox treatment, please call our office and let us know so that we can file the paperwork. Telemedicine is the newest virtual visit that we are now offering to allow you to have a [id number] conversation with your doctor for 15 minutes (although this can extend further as needed), without the need for driving to our clinic, paying for parking, paying copays, paying for travel, stoppingover for meals, etc. You will need a computer or smartphone (with a built-in camera), should you wish to avail of this convenient alternative. If you are interested in the telemedicine visit, please let me know and we will facilitate that visit. I have included more detailed information below on how the virtual visit works. We look forward to serving your needs and answering your questions! REASON FOR A VIRTUAL ONLINE APPOINTMENT In order to provide you with the best care possible, we have recently begun using a technology to connect patients, providers, and family members through a [employer] -like connection for live audio and video communication. We are now using this as a way for patients to have a visit with a provider without the added costs of having to travel to our facility. This service, [facility], is easily accessible through your mobile device or a desktop/laptop with a browser and internet connection. HOW DO I GET STARTED? ON A DESKTOP OR LAPTOP COMPUTER WITH A WEBCAM CONNECTED: 1. Go to the URL: [email or web address] 2. Click on Sign Up and Create a patient account for yourself. 3. Please also follow the links to Test My Computer . 4. Follow the steps suggested, testing your Internet Speed, Webcam, Microphone, Speaker, and your video software. 5. Please make sure your video software is up-to-date. This is a safe, [facility] approved download, and will not harm your computer. ON AN IPHONE, IPAD, OR ANDROID DEVICE: 1. Open up the [employer] or [employer] and search [facility] [employer] [facility] Online. 2. Download and Install the Application. 3. Tap on Sign Up and create a patient account for yourself. 4. Please use an e-mail address that you frequently check, as you will receive an e-mail appointment from [facility] [employer]. Find our user guide, here: [email or web address] Important: Don t forget your password you choose during setup. For your personal records: Your E-mail Address Here: Your Password Here: YOUR ONLINE VIRTUAL VISIT 1. Once the visit is scheduled, you should plan to begin your visit at least 15 minutes prior to the start of your visit. 2. You can begin by opening the email you received to schedule this visit, click on Start Visit, agree to the Terms of Use, and wait for your visit to start! 3. Agree to the Terms of Use, and wait for your visit to start! 4. When you join the virtual visit you will be connected to the provider. Please call [phone] prior to your visit if you have any questions regarding technology! documented in this encounterMer[facility]08-12-2025 NoteHNO ID: [id number] Author: AVERY GAINES DO Service: ? Author Type: Physician Type: Progress Notes Filed: 07/05/2025 14:19 Note Text: Previous records (physician notes, laboratory reports, and radiology reports) and imaging studies were reviewed and summarized as below. My recommendations will be communicated back to the patient's primary care physician and/or consulting physician(s) by way of shared medical record or letter via [place] mail. Thank you for allowing me to contribute to the care of your patient. ASSESSMENT: 34 year old female with history significant for migraine, chronic migraine, R occipital neuralgia, R trigeminal nerve disorder, PCOS, anxiety, depression, with R sided chronic daily headache and variable R sided facial pain. Overall, symptoms fit criteria and a good story for hemicrania continua, so we'll first exclude this with an Indocin trial. If no response, I would treat this as chronic migraine with R occipital neuralgia and cervicogenic contributions with variable R trigeminal neuralgia with persistent background pain vs. trigeminal neuropathy (could fit with both). PLAN: (Please see typed patient instructions for detailed instructions) ---> Acute Treatment: -Indocin trial. ---> Preventive Treatment: -Indocin trial. If no response, I would suggest either changing Lexapro to Cymbalta or sending for Botox next. -Supplements discussed. ---> Headache education was done. Discussed lifestyle modification including increased oral hydration, decreased caffeine, exercise and stress management. Discussed treatment options including preventive and acute medications, natural supplements. Discussed medication overuse headache and to limit use of acute treatments to no more than 2 days/week or 10 days/month. Discussed medication side effects, adverse reactions and drug interactions. Written educational materials and patient instructions outlining all of the above were given. ---> Follow-up: 3 months. REFERRING PHYSICIAN: Maggy Jacobo [id number] [facility] [address] PCP: Rohit Leos [address] [facility] [place] [address] Accompanied by: Self CC: Headache, Migraine, Facial Pain, and Trigeminal Neuralgia HxCC: 34 year old female with history significant for migraine, chronic migraine, R occipital neuralgia, R trigeminal nerve disorder, PCOS, anxiety, depression, who presents for evaluation of R sided chronic daily headache and variable R sided facial pain. FACIAL PAIN FEATURES: Onset: July 2024 in the setting of high stress (mom diagnosed with early onset Alzheimer's and father was septic in hospital). Side: R Distribution: V3 > V2 > V1 Any pain on side or back of head: Yes Character: Electrifying numb pressure Duration: Seconds Frequency: Can be frequent volleys. Pain-free between episodes: No, but low level pressure in background continuously Triggers: Talking, singing, eating. Sensory abnormalities: Intermittent Tried Tegretol/Trileptal (initial response): Possible side effects. Other medications tried: See prior med list below Prior procedures/outcome: No History of MS, Lyme's disease, facial rash: No History of dental/oral surgery, facial/plastic surgery: Top R wisdom teeth removed years ago. Autonomic features: Yes, per headache description below. HEADACHE TYPE 1: Onset: Childhood on, occasional migraines. Had a fall June 2023 with a nasal fracture in September 2023 and started to get a frequent R sided aching. May 2024 started to get a lot more migraines and had a bad flare which when on for multiple days. Prior to this would only get a few migraines around season changes and otherwise no headaches. Since the fall, getting a lot more headaches. Location: R side side of head only. Worst is R occipital and spreads up over side of head into frontal temporal regions. Description: Steady, throbbing. Characteristics: Duration: Headache attacks last more than 4 hours. Frequency: 8-10 overall higher level pain headache days per month which includes 5-6 bad migraine days per month. However, she does have a continuous R sided headache in the R side of the head all the time to a lower level. Timing: Worse in the evening after work. Time to peak pain intensity: Variable. Associated symptoms: Aura: absent but can occasionally get some strobing for a few seconds. Photophobia, Phonophobia, and Nausea. Gets some drooping of R eyelid when bad, R nasal congestion most of the time. Intermittent occasional diplopia vertical > horizontal. Relieving factors: Flonase ns seems to have helped some. Triggers: Getting up and sitting down, putting head down, turning head L flares up occipital pain, sleeping on R side. She also mentions s (more content not included)...[facility] 07-05-2025 History of Present illness Narrative* Avery Gaines, - 07/05/2025 1:01 PM EDT Images from the original note were not included. Previous records (physician notes, laboratory reports, and radiology reports) and imaging studies were reviewed and summarized as below. My recommendations will be communicated back to the patient's primary care physician and/or consulting physician(s) by way of shared medical record or letter via [place] mail. Thank you for allowing me to contribute to the care of your patient. ASSESSMENT: 34 year old female with history significant for migraine, chronic migraine, R occipital neuralgia, R trigeminal nerve disorder, PCOS, anxiety, depression, with R sided chronic daily headache and variable R sided facial pain. Overall, symptoms fit criteria and a good story for hemicrania continua, so we'll first exclude this with an Indocin trial. If no response, I would treat this as chronic migraine with R occipital neuralgia and cervicogenic contributions with variable R trigeminal neuralgia with persistent background pain vs. trigeminal neuropathy (could fit with both). PLAN: (Please see typed patient instructions for detailed instructions) ---> Acute Treatment: -Indocin trial. ---> Preventive Treatment: -Indocin trial. If no response, I would suggest either changing Lexapro to Cymbalta or sending for Botox next. -Supplements discussed. ---> Headache education was done. Discussed lifestyle modification including increased oral hydration, decreased caffeine, exercise and stress management. Discussed treatment options including preventive and acute medications, natural supplements. Discussed medication overuse headache and to limit use of acute treatments to no more than 2 days/week or 10 days/month. Discussed medication side effects, adverse reactions and drug interactions. Written educational materials and patient instructions outlining all of the above were given. ---> Follow-up: 3 months. REFERRING PHYSICIAN: Maggy Jacobo [id number] [facility] [address] PCP: Rohit Leos [address] [facility] [place] [place] [address] Accompanied by: Self CC: Headache, Migraine, Facial Pain, and Trigeminal Neuralgia HxCC: 34 year old female with history significant for migraine, chronic migraine, R occipital neuralgia, R trigeminal nerve disorder, PCOS, anxiety, depression, who presents for evaluation of R sided chronic daily headache and variable R sided facial pain. FACIAL PAIN FEATURES: Onset: July 2024 in the setting of high stress (mom diagnosed with early onset Alzheimer's andfather was septic in hospital). Side: R Distribution: V3 > V2 > V1 Any pain on side or back of head: Yes Character: Electrifying numb pressure Duration: Seconds Frequency: Can be frequent volleys. Pain-free between episodes: No, but low level pressure in background continuously Triggers: Talking, singing, eating. Sensory abnormalities: Intermittent Tried Tegretol/Trileptal (initial response): Possible side effects. Other medications tried: See prior med list below Prior procedures/outcome: No History of MS, Lyme's disease, facial rash: No History of dental/oral surgery, facial/plastic surgery: Top R wisdom teeth removed years ago. Autonomic features: Yes, per headache description below. HEADACHE TYPE 1: Onset: Childhood on, occasional migraines. Had a fall June 2023 with a nasal fracture in September 2023 and started to get a frequent R sided aching. May 2024 started to get a lot more migrainesand had a bad flare which when on for multiple days. Prior to this would only get a few migraines around season changes and otherwise no headaches. Since the fall, getting a lot more headaches. Location: R side side of head only. Worst is R occipital and spreads up over side of head into frontal temporal regions. Description: Steady, throbbing. Characteristics: Duration: Headache attacks last more than 4 hours. Frequency: 8-10 overall higher level pain headache days per month which includes 5-6 bad migraine days per month. However, she does have a continuous R sided headache in the R side of the head all the time to a lower level. Timing: Worse in the evening after work. Time to peak pain intensity: Variable. Associated symptoms: Aura: absent but can occasionally get some strobing for a few seconds. Photophobia, Phonophobia, and Nausea. Gets some drooping of R eyelid when bad, R nasal congestion most of the time. Intermittent occasional diplopia vertical > horizontal. Relieving factors: Flonase ns seems to have helped some. Triggers: Getting up and sitting down, putting head down, turning head L flares up occipital pain, sleeping on R side. She also mentions some occasional tremors in the R arm. CURRENT ACUTE TREATMENTS: ---> Baclofen -Rare ---> OTCs -<10 days/month CURRENT PREVENTIVES: ---> None Prior Therapies Duration of Use Dose Reason for Discontinuation Other Therapies Nerve blocks Analgesic Ketorolac (Toradol) Anti-Anxiety Buspirone (Buspar) Anti-Convulsant Carbamazepine (Tegretol) side effects Gabapentin (Neurontin) Oxcarbazepine (Trileptal) side effects Anti-Depressant and Antipsychotic Escitalopram (Lexapro) Antiemetics Metoclopramide Anti-Migraine Rizatriptan (Maxalt) dizziness, off balance, loopy Muscle Relaxer Baclofen (Lioresal) Cyclobenzaprine (Flexeril) Supplements Magnesium Over the Counter Medications Acetaminophen (Tylenol) Acetaminophen/Aspirin/Caffeine (Excedrin, Goody s) Aspirin Ibuprofen (Advil, Motrin) Naproxen sodium (Aleve) HEADACHE SCORES: 03/03/2025 04/06/2025 07/03/2025 Headache Questions ID Migraine Screener: 3 (Positive) ER visits in the last year: 3 ER visits since last office visit: 1 Hospital stays in the last year: 0 Hospital stays since last office visit 0 Limited ADLs in the last month: 15 8 Days missed from work or school in the last month: 1 1 Days headache pain free in the last month: 10 20 Days per month with ALL of the following symptoms - decreased productivity, light sensitivity and nausea: 3 8 Days per month with mild/moderate face pain: 20 Days per month with severe face pain: 5 PRN medication usage in the last month: 3 8 11/22/2024 04/06/2025 07/03/2025 HIT-6 HIT-6 68 (Severe impact) 60 (Severe impact) 65 (Severe impact) 03/03/2025 04/06/2025 07/03/2025 JOHNNIE - 2/7 SCORES JOHNNIE-2 Score 2 2 2 4 JOHNNIE-7 Score 13 01/04/2025 03/03/2025 Pain Disability Index PDI Score 35 55 11/22/2024 04/06/2025 07/03/2025 Migraine Specific QOL - Higher scores indicate better HRQL Role Function-Restrictive Transformed Score (range: 0-100) 34.29 60 60 Role Function-Preventive Transformed Score (range: 0-100) 40 60 70 Emotional Function Transformed Score (range: 0-100) 6.67 60 26.67 03/03/2025 04/06/2025 07/03/2025 PHQ-9 Score 22 9 9 14 PRIOR EVALUATIONS: -ENT -Headache Center -PCP RECENT LABS: Reviewed in Care Everywhere RECENT IMAGING/DIAGNOSTICS: --MRI/MRA Brain w/wo contrast (12/14/24): Impression IMPRESSION: No acute brain findings. No mass effect or abnormal brain enhancement. No abnormal cranial nerve enhancement or mechanical impingement. No evidence for an infiltrative process at the skull base. Minor ethmoid inflammatory mucosal change. Normally patent intracranial arterial vasculature. No evidence for vascular malformation or aneurysm. 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 Sanitation Lead: DIOGO Transcribe Date/Time: Dec 14 2024 11:24A Dictated by : EVELIA RUBIN MD This examination was interpreted and the report reviewed and electronically signed by: EVELIA RUBIN MD on Dec 14 2024 11:34AM EST Results-Findings * * *Final Report* * * DATE OF EXAM: Dec 14 2024 11:22AM LNM [id number] - MRI BRAIN WO/W IVCON / PROCEDURE REASON: Right trigeminal neuralgia * * * * Physician Interpretation * * * * EXAMINATION: MRA BRAIN WO IVCON, MRI BRAIN WO/W IVCON CLINICAL HISTORY: Right trigeminal neuralgia. TECHNIQUE: Upper cranial nerve protocol imaging without and with gadolinium. Intracranial 3D [id number] MRA with post-processing performed at the modality and 2D multiplanar and 3D maximum intensity projections were created, reviewed and archived. MR Contrast: Dotarem Contrast Dose: 20 cc Route of Administration: Intravenous MQ: [id number] COMPARISON: Outside MRI of the brain 09/27/2024. RESULT: BRAIN: Acute Change: There is no restricted diffusion on this examination to suggest focal acute ischemia or pathologic brain parenchymal cellularity. Hemorrhage: No abnormal susceptibility artifact identified to suggest previous brain parenchymal hemorrhage within the [id number]. Mass Lesion/ Mass Effect: No evidence of an intracranial mass or extra-axial fluid collection. No significant mass effect. Chronic Change: The white matter is within normal limits of signal intensity for age. Parenchyma: No significant volume loss for age. The brain parenchyma within the [id number] is otherwise within normal limits of signal intensity and morphology. No abnormal brain parenchymal or meningeal enhancement. No abnormal cranial nerve enhancement. Ventricles: Normal caliber and morphology. Skull Base: Hypothalamic and pituitary region are grossly normal. Craniocervical junction is normal. No significant marrow replacement process. No gross vascular impingement of lower cranial nerves, no lower cranial nerve nodularity or gross thickening visible on the axial CISS sequence. Meckel's cave and cavernous sinus regions are grossly normal. No focal brainstem lesions. Vasculature: Major intracranial arterial structures, and dural venous sinuses show typical flow void, suggesting patency by spin echo criteria. Concordant appearance after gadolinium. Right transverse sinus is dominant. Other: Patchy ethmoid inflammatory mucosal thickening. Opacified solitary posterior right ethmoid air cell. Remaining paranasal sinus chambers are clear. Mastoid air cells and middle ear cavities are clear. Orbits are structurally unremarkable. INTRACRANIAL MRA: Distal internal carotid arteries are normally patent to the carotid terminus. Anterior circulation branch vessels are patent. No focal high-grade intracranial stenosis, vessel cutoff, filling defect, vascular malformation, or aneurysm. V4 segments are normally patent. Basilar artery is patent. Typical P1 segments. Smaller branch vessels are grossly open. No vessel cutoff, high-grade stenosis, vascular malformation, or aneurysm. Close approximation of the left and right V4 segments. (6:1). When viewed on the individual partitions, this may be an anatomic variant of proximal basilar fenestration, but there does appear to be separation of the distal vertebral artery lumen which may be fused at the adventitia. (4:35). MRI cervical spine wo 06/25/24: EXAMINATION: MRI OF THE CERVICAL SPINE WITHOUT [...] CAUSING MILD CANAL AND BILATERAL FORAMINAL STENOSIS. PMH: No past medical history on file. PSH: No past surgical history on file. CURRENT MEDS: Current Outpatient Medications Medication Sig escitalopram oxalate (LEXAPRO) 5 mg tablet Take 5 mg by mouth. Cholecalciferol, Vitamin D3, (VITAMIN D-3) 10 mcg (400 unit) chew Clindamycin Phosphate (CLEOCIN T) 1 % lotion Apply 1 application to affected area as needed. cyclobenzaprine (FLEXERIL) 5 mg tablet Take 5 mg by mouth once daily. fluticasone (FLONASE) 50 mcg/actuation nasal spray Use 2 sprays in each nostril once daily. magnesium glycinate 118 mg magnesium cap Take 118 mg by mouth once daily. rizatriptan (MAXALT) 10 mg tablet Take 10 mg by mouth as needed. baclofen 10 mg tablet Take half-1 tablet twice a day as needed for facial pain, may cause drowsiness metFORMIN ER (GLUCOPHAGE XR) 500 mg 24 hr tablet Take 500 mg by mouth once daily. hydrOXYzine HCl (ATARAX) 10 mg tablet Take 10 mg by mouth as needed. No current facility-administered medications for this visit. ALLERGIES: ALLERGIES Allergen Reactions Dextromethorphan-Gu* Unknown FMH: No family history on file. SOCIAL: SOCIAL HISTORY[1] REVIEW OF SYSTEMS: Review of Systems Constitutional Positive for Night Sweats and Fatigue Negative for Fevers, Weight Gain and Weight Loss Eyes Positive for Change in vison not corrected by glasses Negative for Vision loss or change Hent Negative for Hearing Loss, Difficulty Swallowing, Tinnitus and Recent change in speech or voice Cardiovascular Negative for Chest Pain, Lightheadedness and Leg pain with walking Respiratory Negative for SOB at rest, SOB with exertion, Cough, Wheezing and Snoring GI Negative for Blood in Stool, Abdominal Pain, Diarrhea, Constipation, Nausea/Vomiting and Heartburn Negative for Urgency, Impotence, Incontinence and Sexual Dysfunction Endocrine Negative for Heat Intolerance, Excessive Thirst and Menstrual Cycle Irregularities Musculoskeletal Positive for Muscle Pain Negative for Back Pain, Joint Swelling and Stiff Joints Integumentary Negative for Rashes, Itching, Other Lesions and Hair Changes Heme/Lymph Negative for Prolonged Bleeding, Easy Bruising and Swelling of Arm or Leg Allergy/Immunologic Negative for Nasal Congestion and Swollen Nodes Neurologic Positive for Headache, Weakness, Double Vision and Trouble Swallowing Negative for Memory Problems, Numbness/Tingling and Slurred Speech Psychiatric Positive for Anxiety Negative for Stress or Conflicts, Depression, Irritability, Hallucinations and Delusions Patient's Review of Systems has been reviewed with the patient and updated as appropriate. I have reviewed the Mariano Status Assessment responses and discussed these with the patient: yes. Avery Gaines DO PHYSICAL EXAM: BP 119/80 Pulse 80 Wt 112.5 kg (248 lb) LMP 03/27/2025 (Exact Date) BMI 36.56 kg/m GEN: Alert. NAD. Normal affect. Cooperative. HEENT: No rhinorrhea, lacrimation or conjunctival injection. No sinus tenderness. Normal mucosa. Notemporal artery tenderness. Fundoscopic exam unremarkable. NECK/BACK: No lymphadenopathy. Suboccipital tenderness present on R. Paracervical and upper shoulder musculature/traps tenderness and hypertonicity present. CV: RRR. No M/G/R/C. RESP: CTA b/l. NEUROLOGICAL: MENTAL STATUS: A+O x 3. Attentive. Thought process and content unremarkable. Follows commands appropriately. Speech fluent. CN: II: Visual cali intact. PERRLA. No Papilledema. III, IV, : EOMI. No ptosis present. V: Facial sensation to touch on the R face slightly more dull. VII: Face symmetric. VIII: Hearing symmetric. No nystagmus. IX, X: Symmetric palatal rise. XI: Symmetric shoulder shrug. XII: Tongue midline. MOTOR: Normal tone. Normal bulk. Finger tap normal. Orbiting absent. Motor symmetric. REFLEXES: RIGHT: LEFT: Biceps 2/4 Biceps 2/4 Brachioradialis 2/4 Brachioradialis 2/4 Triceps 2/4 Triceps 2/4 Patellar 2/4 Patellar 2/4 Achilles 2/4 Achilles 2/4 Negative Leyva. Negative Troemner. SENSATION: Touch slightly more dull R face and R arm. CEREBELLAR: Normal F-N-F. No nystagmus. GAIT: Stable primary gait. Avery Gaines DO [facility] [place] [facility] [address] [place], [place] [id number] Level of service: New level 4 (45-59 min). Time spent 60 min on the day of service, which included preparing to see the patient, [id number] patient care, completing clinical documentation, obtaining and/or reviewing separately obtained history, performing a medically appropriate examination, counseling and educating the patient/family/caregiver, ordering medications, tests, or procedures, communicating with other HCPs (not separately reported), and independently interpreting results (not separately reported). Medical Decision Making: Medical Decision Making Level: 1 - N/A cc: Maggy Jacobo [id number] [facility] [address] Rohit Leos [address] [facility] [place] [address] [1] Social History Tobacco Use Smoking status: Former Current packs/day: 0.00 Types: Cigarettes Quit date: 06/2022 Years since quittin.0 Smokeless tobacco: Never Substance Use Topics Alcohol use: Never Drug use: Yes Types: Marijuana documented in this encounter[facility] NoteHNO ID: [id number] Author: JENNIFER LOPEZ, PT Service: ? Author Type: Physical Therapist Type: Progress Notes Filed: 06/02/2025 16:31 Note Text: Episode Visit Count: 3 Therapist That Will Accept/Oversee The Plan Of Care: Jennifer Lopez Start of Care Date: 04/13/25 Onset Date: 08/08/24 REHABILITATION AND SPORTS THERAPY PHYSICAL THERAPY PROGRESS REPORT PLAN OF CARE UPDATE: Assessment: Kierra Natarajan demonstrates improvements in ability to talk and eat. The patient has met 3 goals and progressed toward goals. Patient continues to present with impairments in flexibility, symptom management, and tissue tenderness that interfere with (continues to limit life due to pain.) . Current prognosis is Good due to: current objective clinical presentation . The patient will benefit from continued skilled therapy services to meet the updated goals for this plan of care as noted below. Goals for Episode of Care: established 04/13/25, updated 06/02/2025 Decrease tenderness to palpation of craniofacial and intraoral musculature by 75% with no active referral symptoms. progressing Patient will increase active ROM of upper and lower cervical spine to symmetrical to allow for neutral postural alignment and performance of ADL's met Patient will be able to correct postural deviations independently in order to allow for maintenance of proper alignment to decrease pain. met Patient will be able to properly demonstrate current home exercise program independently ongoing Patient will demonstrate increase in cervical spine strength to good during manual muscle testing in order to improve function for prior functional tasks. met Time Frame for Goals and Treatment : 07/28/25 Planned Interventions, Frequency, and Duration: 1 visit, 8 weeks Total Number of Visits Planned: 1 Patient to be seen for Therapeutic exercise (01642), Neuromuscular re-education (49421), Manual therapy (01810), Therapeutic activities (65538), Self-long term management (71012), Patient/Family/Caregiver Education, Body Mechanics Training, Functional training PLAN FOR NEXT VISIT: progress note, assess carry over of home program SUBJECTIVE: . Patient reports she is doing better overall. Notes increased symptoms over the weekend that were very strong. Saw her primary care today, Functional Limitations: (continues to limit life due to pain.) Pain: Pain Pain Level: 2 Pain Location: Jaw Description: Pressure Post Treatment Pain Post Treatment Pain Level: No Change PROMIS Scales 05/31/2025 05/04/2025 04/12/2025 Higher is Better Phys Func - T Score 44 (mild dysfunction) 42 (mild dysfunction) Phys Func - Percentile 27 21 Self-Eff Symptom - T Score 41 (Average) 45 (Average) Self-Eff Symptom - Percentile 18 31 04/12/2025 Lower is Better Pain Interference - T Score 56 (mild) Pain Interference - Percentile 27 T-scores: mean of general population = 50. 5 points is clinically meaningfully difference Percentiles provide an indication of how the patient's score ranks in relation to the general population. Higher percentile rankings indicate better function/quality of life. 50th percentile is the average of the general population and indicates half of respondents had a worse score. OBJECTIVE MEASURES WITH LEVEL OF FUNCTION: Posture /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 trigeminal neuralgia, and occipital neuralgia contributing to episodic facial and head pain. - Initiated gabapentin 300 mg PO daily in the evening, approximately 1 hour before typical onset of pain (around 0649-3548). Patient states she is no longer trying to conceive. - Continue baclofen 1/2 tablet PO daily in the morning or as needed for breakthrough pain. 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 - Referral to neuro-writer Dr. Leon Loza at [facility] for evaluation of intermittent diplopia and potential neurological causes. - Referral to physical therapy for management of muscle tension and tightness contributing to nerve irritation. - Follow-up in 6 weeks to assess response to gabapentin and adjust dosage if necessary. 4. Chronic sinusitis, unspecified location (J32.9) - Chronic sinus issues noted on imaging; previous evaluations by ENT specialists with differing opinions on TMJ involvement and deviated septum. - Discussed potential contributions of sinusitis to overall symptomatology; surgical intervention for deviated septum deemed unlikely to resolve current symptoms. - Continue current management; monitor for any changes or worsening of sinus symptoms. Interval Headache History: Kierra Natarajan is a 34 year old year old female, with a history of facial pain, trigeminal neuralgia, obesity, ADHD, anxiety and depression following up today virtually for facial pain. Since the last visit, the patient states that her facial pain has improved. Facial Pain: - Significant improvement in facial pain over the last 1.5 weeks; only two minor episodes. - Unable to identify specific triggers; episodes previously occurred during activities such as brushing teeth or singing in the car. - Currently taking gabapentin 300mg in evening, but unsure if it is effective; reports grogginess in the morning after taking it between 18:00-19:00. - Has been on gabapentin for 4-5 weeks; did not notice improvement until recently. - Started using Flonase 2.5-3 weeks ago for a nasal polyp; believes this may have contributed to the improvement. - Reports a history of a severe deviated septum and has seen multiple ENTs with differing opinions on the cause of her symptoms. - Previously tried Motrin 800 mg for pain relief but experienced adverse effects; currently using Tylenol. Anxiety: - Currently taking hydroxyzine for anxiety. - Experiences panic attacks related to the anticipation of facial pain episodes. - Interested in exploring [id number] medications for anxiety management. Headache 1 Number of migraine headache days/month: 3 Number of headache free days/month: 10 Days missed from work or school in the last month: 1 days Trigeminal Neuralgia HPI Onset: August, - Pt reports right facial pain occurred in setting of stress (mother dx with dementia, and father septic at the onset). A few months prior to this, she started getting occipital nerve pain on the R. She did receive occipital nerve block at that time, helped, but then pain returned and then she started to have the facial pain in August. Pt also reports lymphadenopathy around time of onset, but no diagnosis. LAD resolved over 3-4 weeks. Side: Right Distribution: V2, V3 (mostly) and V1 Any pain on the side or back of head: Yes, she does get pain in the occipital area when severe and this can radiate to the front (lightening bolt, pressure). Can radiate down (more content not included)...[facility] 03-15-2025 Instructions* Patient Instructions* Maggy Jacobo APRN.[employer] - 03/15/2025 11:53 AM EDT Start gabapentin 300 mg every evening about one hour before the time you usually start experiencingpain (around 5-6 PM). Please take it daily for at least six weeks before we reassess your pain level and adjust the dose if needed. Continue using baclofen as needed for breakthrough pain; you may take half a tablet if full dosing makes you feel too sleepy. A referral has been placed for a cerebrovascular specialist to review your imaging. A referral has been made for a neuro-ophthalmology evaluation with Dr. Leon Loza at [facility]. Please call their office to schedule your appointment at the first available slot (noting that wait times may be 3 to 6 months). A referral for physical therapy has been sent for additional management of your facial pain and muscle tension; you may contact the recommended provider locally if you choose to pursue this option. Monitor your pain and any side effects (such as dizziness or fatigue), and please update us in about six weeks regarding how you are responding to the gabapentin. Neurontin (Gabapentin) is an anti-seizure medication which is also useful for the management of headache or migraine, chronic pain, nerve irritation, certain types of dizziness and restless leg syndrome. Side effects include fatigue, drowsiness, blurred vision, tremor, stomach upset, and anxiety. Due to possible drowsiness or dizziness, use caution when operating machinery, driving, or engaging in activities, which require alertness. Contact our office at [phone] if you experience a rapid, pounding, or irregular heart beat, skin rash, runny nose, itching, flu-like symptoms, difficulty moving or clumsiness. Take Neurontin at least 2 (two) hours after taking any antacids as these interfere with the absorption of medication by the body. Limit your alcohol intake while taking this medication. Neurontin should not be stopped abruptly. If you experience any of the above symptoms or other problems, call our office at [phone]. Due to side effects, we start the medication at a low dose. The range of dosage for Neurontin (Gabapentin) is 100mg to 4800mg / day. Since Neurontin (Gabapentin) can make you tired, I recommend taking it at bedtime. Please advise, it may take 3 to 6 weeks to show benefit for your pain. [facility] NoteHNO ID: [id number] Author: MAGGY JACOBO APRN.LUTHER Service: ? Author Type: Nurse Practitioner Type: Progress Notes Filed: 03/15/2025 13:43 Note Text: Outpatient Headache Clinic - Follow Up Visit Accompanied by: Self Primary Problem List: There is no problem list on file for this patient. Chief Complaint: facial pain LV: 03/03/25 Beth Phillips CNP Impression and Plan from last visit: Right trigeminal neuralgia (primary encounter diagnosis) Trigeminal nerve disorder Occipital neuralgia of right side Kierra Natarajan is a 34-year-old female with history significant for facial pain, trigeminal neuralgia, obesity, ADHD, anxiety and depression. She presents virtually for follow-up regarding headache and facial pain consistent with right sided trigeminal neuralgia vs. neuropathy and likely occipital neuralgia. Workup with MRI/MRA Brain have been unrevealing for secondary cause. She is currently taking Magnesium supplementation and Baclofen PRN. She was doing much better for a period of time, but did have flaring of symptoms over the past week. She is feeling much better again starting yesterday and today. 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 She will continue Baclofen as needed and we discussed trial of half tablet/dosing to see if better tolerated. She is aware to stop this if . I also advised referral to Neuro Obstetrics to further review possible treatment options for her pain and symptoms during this time, especially if symptoms were to return. PLAN: Facial pain MANAGEMENT: (You are the primary guardian of your health and facial pain. Keep track of all medications: This includes the reason for use, side effects and benefits.) MEDICATION TREATMENT: Abortive therapy: -Baclofen PRN. She is aware to not take in . Preventive therapy: -Magnesium. -Could consider nerve block with lidocaine only. -Referral to Neuro Obstetrics - Dr. Bean or Dr. Butt. Interval Headache History: Kierra Natarajan is a 34 year old year old female, with a history of facial pain, trigeminal neuralgia, obesity, ADHD, anxiety and depression following up today for facial pain. Since the last visit, the patient states that her facial pain has worsened. Facial Pain: - Recurrent episodes of facial pain, initially evaluated by Dr. Mukherjee and subsequently managed with baclofen, with benefit. - Recent exacerbation of symptoms, including severe pain on the right side of the head, ear, jaw, and teeth. - Episodes occur approximately every 3-4 days, lasting about 10 minutes, with one major episode per day. - Describes pain as excruciating with sensations of water feeling on the right side, numbness in the upper right teeth, and shoots of electricity into the teeth. - Pain episodes are accompanied by jerking movements and a sense of losing control over the right side of the neck, arm, and shoulder. - Experiences panic attacks during episodes, fearing facial drooping and stroke-like symptoms. - Pain episodes have led to significant lifestyle changes, including reduced physical activity and feeling homebound. - Reports intermittent double vision, evaluated by ophthalmology, with no identified cause. 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 - Has seen multiple specialists, including ENT and neurologists, with varying opinions on the cause of pain. - Currently using a bank guard for suspected TMJ-related issues. - Denies current attempts to become ; has a history of trying to conceive for over 11 years with no success. Trigeminal Neuralgia HPI Onset: August, - Pt reports right facial pain occurred in setting of stress (mother dx with dementia, and father septic at the onset). A few months prior to this, she started getting occipital nerve pain on the R. She did receive occipital nerve block at that time, helped, but then pain returned and then she started to have the facial pain in August. Pt also reports lymphadenopathy around time of onset, but no diagnosis. LAD resolved over 3-4 weeks. Side: Right Distribution: V2, V3 (mostly) and V1 Any pain on the side or back of head: Yes, she does get pain in the occipital area when severe and this can radiate to the front (lightening bolt, pressure). Can radiate down the R side of her neck at times. Character: burning, electric shock, zaps , shooting, talking, yawning Duration: Seconds, but will return over and over. Pain-free between episodes: Yes Triggers: eating/chewing, brushing teeth, brushing her hair Sensory abnormalities: Yes - she reports numbness at times on right. Initial benefit from Tegretol/Trileptal: Carbamazepine/Oxcarbazepine: helpful for the pain, but did not entirely elayne it. Side effects with Tegretol (possibly contributing to l (more content not included)...[facility]04-22-2025 History of Present illness Narrative* Maggy Jacobo APRN.[employer] - 03/15/2025 11:15 AM EDT Images from the original note were not included. Outpatient Headache Clinic - Follow Up Visit Accompanied by: Self Primary Problem List: There is no problem list on file for this patient. Chief Complaint: facial pain LV: 03/03/25 Beth Phillips CNP Impression and Plan from last visit: Right trigeminal neuralgia (primary encounter diagnosis) Trigeminal nerve disorder Occipital neuralgia of right side Kierra Natarajan is a 34-year-old female with history significant for facial pain, trigeminal neuralgia, obesity, ADHD, anxiety and depression. She presents virtually for follow-up regarding headache andfacial pain consistent with right sided trigeminal neuralgia vs. neuropathy and likely occipital neuralgia. Workup with MRI/MRA Brain have been unrevealing for secondary cause. She is currently taking Magnesium supplementation and Baclofen PRN. She was doing much better for a period of time, but did have flaring of symptoms over the past week. She is feeling much better again starting yesterday and today. She is trying for , so would like to limit long-term medications ideally at this time. She will continue Baclofen as needed and we discussed trial of half tablet/dosing to see if better tolerated. She is aware to stop this if . I also advised referral to Neuro Obstetrics to further review possible treatment options for her pain and symptoms during this time, especially if symptoms were to return. PLAN: Facial pain MANAGEMENT: (You are the primary guardian of your health and facial pain. Keep track ofall medications: This includes the reason for use, side effects and benefits.) MEDICATION TREATMENT: Abortive therapy: -Baclofen PRN. She is aware to not take in . Preventive therapy: -Magnesium. -Could consider nerve block with lidocaine only. -Referral to Neuro Obstetrics - Dr. Bean or Dr. Butt. Interval Headache History: Kierra Natarajan is a 34 year old year old female, with a history of facial pain, trigeminal neuralgia,obesity, ADHD, anxiety and depression following up today for facial pain. Since the last visit, thepatient states that her facial pain has worsened. Facial Pain: - Recurrent episodes of facial pain, initially evaluated by Dr. Mukherjee and subsequently managed with baclofen, with benefit. - Recent exacerbation of symptoms, including severe pain on the right side of the head, ear, jaw, and teeth. - Episodes occur approximately every 3-4 days, lasting about 10 minutes, with one major episode perday. - Describes pain as excruciating with sensations of water feeling on the right side, numbness in the upper right teeth, and shoots of electricity into the teeth. - Pain episodes are accompanied by jerking movements and a sense of losing control over the right side of the neck, arm, and shoulder. - Experiences panic attacks during episodes, fearing facial drooping and stroke- like symptoms. - Pain episodes have led to significant lifestyle changes, including reduced physical activity and feeling homebound. - Reports intermittent double vision, evaluated by ophthalmology, with no identified cause. - MRI and MRA imaging showed chronic sinus issues and a short segment distal V4 fusion versus focalfenestration at the basilar artery. - Has seen multiple specialists, including ENT and neurologists, with varying opinions on the causeof pain. - Currently using a bank guard for suspected TMJ-related issues. - Denies current attempts to become ; has a history of trying to conceive for over 11 yearswith no success. Trigeminal Neuralgia HPI Onset: August, - Pt reports right facial pain occurred in setting of stress (mother dx with dementia, and father septic at the onset). A few months prior to this, she started getting occipital nerve pain on the R. She did receive occipital nerve block at that time, helped, but then pain returned and then she started to have the facial pain in August. Pt also reports lymphadenopathy around time of onset, but no diagnosis. LAD resolved over 3-4 weeks. Side: Right Distribution: V2, V3 (mostly) and V1 Any pain on the side or back of head: Yes, she does get pain in the occipital area when severe and this can radiate to the front (lightening bolt, pressure). Can radiate down the R side of her neck at times. Character: burning, electric shock, zaps , shooting, talking, yawning Duration: Seconds, but will return over and over. Pain-free between episodes: Yes Triggers: eating/chewing, brushing teeth, brushing her hair Sensory abnormalities: Yes - she reports numbness at times on right. Initial benefit from Tegretol/Trileptal: Carbamazepine/Oxcarbazepine: helpful for the pain, but didnot entirely elayne it. Side effects with Tegretol (possibly contributing to lymphadenopathy she had?). Trileptal was more tolerable than Tegretol, but she weaned herself off given improvement in symptoms. History of MS: No History of Lyme disease: No History of shingles facial rash: No History of dental/oral surgery: No History of facial/plastic surgery: No Type of Trigeminal Neuralgia: painful trigeminal neuropathy Preventative: magnesium Abortive: baclofen Medications effective? sometimes Prior Therapies Duration of Use Dose Reason for Discontinuation Other Therapies Nerve blocks Anti-Convulsant Carbamazepine (Tegretol) side effects Oxcarbazepine (Trileptal) side effects Anti-Migraine Rizatriptan (Maxalt) dizziness, off balance, loopy Muscle Relaxer Baclofen (Lioresal) History reviewed. No pertinent past medical history. History reviewed. No pertinent surgical history. ALLERGIES Allergen Reactions Dextromethorphan-Gu* Unknown Current Medications: Cholecalciferol, Vitamin D3, (VITAMIN D-3) 10 mcg (400 unit) chew Clindamycin Phosphate (CLEOCIN T) 1 % lotion Apply 1 application to affected area as needed. fluticasone (FLONASE) 50 mcg/actuation nasal spray Use 2 sprays in each nostril once daily. magnesium glycinate 118 mg magnesium cap Take 118 mg by mouth once daily. rizatriptan (MAXALT) 10 mg tablet Take 10 mg by mouth as needed. baclofen 10 mg tablet Take half-1 tablet twice a day as needed for facial pain, may cause drowsiness metFORMIN ER (GLUCOPHAGE XR) 500 mg 24 hr tablet Take 500 mg by mouth once daily. hydrOXYzine HCl (ATARAX) 10 mg tablet Take 10 mg by mouth as needed. cyclobenzaprine (FLEXERIL) 5 mg tablet Take 5 mg by mouth once daily. gabapentin (NEURONTIN) 300 mg capsule Take 1 capsule by mouth daily at bedtime for 90 days. I have reviewed the Mariano Status Assessment responses and discussed these with the patient: yes Maggy Jacobo APRN.[employer] HEADACHE SCORES: 11/22/2024 01/04/2025 03/03/2025 Headache Questions ID Migraine Screener: 3 (Positive) ER visits in the last year: 3 Hospital stays in the last year: 0 Days missed from work or school in the last month: 45 Days headache pain free in the last month: 15 Days per month with ALL of the following symptoms - decreased productivity, light sensitivity and nausea: 25 Days per month with mild/moderate face pain: 8 20 Days per month with severe face pain: 3 5 Days per month free from face pain: 21 PRN medication usage in the last month: 30 10 3 11/22/2024 HIT-6 HIT-6 68 (Severe impact) 11/22/2024 03/03/2025 JOHNNIE - 2/7 SCORES JOHNNIE-2 Score 6 2 JOHNNIE-7 Score 15 01/04/2025 03/03/2025 Pain Disability Index PDI Score 35 55 11/22/2024 Migraine Specific QOL - Higher scores indicate better HRQL Role Function-Restrictive Transformed Score (range: 0-100) 34.29 Role Function-Preventive Transformed Score (range: 0-100) 40 Emotional Function Transformed Score (range: 0-100) 6.67 11/22/2024 01/04/2025 03/03/2025 PHQ-9 Score 20 14 22 Studies to Review: No Imaging: - MRI and MRA: - Short segment distal V4 fusion vs focal 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 No mass effect or abnormal brain enhancement. No abnormal cranial nerve enhancement or mechanical impingement. No ... MRI BRAIN WO/W IVCON Exam End: 09/27/2024 4:34 PM (Final result) MRA Head and/or Neck - Last 2 Impressions MRA BRAIN WO IVCON Exam End: 12/14/2024 11:06 AM (Final result) Impression: IMPRESSION: No acute brain findings. No mass effect or abnormal brain enhancement. No abnormal cranial nerve enhancement or mechanical impingement. No evidence for an infiltrative process at the skull base. Minor ethmoid inflammatory mucosal change. Normally patent intracranial arterial vasculature. No evidence for vascular malformation or aneurysm. 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 Sanitation Lead: [facility] Transcribe Date/Time: Dec 14 2024 11:24A Dictated by : EVELIA RUIBN MD This examination was interpreted and the report reviewed and electronically signed by: EVELIA RUBIN MD on Dec 14 2024 11:34AM EST MRI Cervical Spine - Last 2 Impressions No resulted procedures found. MRI Lumbar Spine - Last 2 Impressions No resulted procedures found. MRI Thoracic Spine - Last 2 Impressions No resulted procedures found. MRI Spine - Last 2 Impressions No resulted procedures found. CT Head/Brain - Last [address] BRAIN WO IVCON Exam End: 06/19/2020 4:05 PM (Final result) CTA Head and/or Neck - Last 2 CTA NECK W IVCON Collected: 10/07/2024 6:38 AM (Final result) Labs to Review No New Health Issues: No New Family History: No Review of Systems: Review of system : unchanged from the previous visit (sleep patterns, mood, energy, appetite, stress, exercising). Physical Examination: VS: BP 130/83 (BP Site: Right Arm, BP Position: Sitting) Pulse 83 Temp 36.8 C (98.2 F) (Temporal) Ht 175.4 cm (5' 9.06 ) Wt 113.6 kg (250 lb 8.8 oz) LMP 02/25/2025 BMI 36.94 kg/m General: well appearing, in no acute distress, alert HEENT: Normocephalic/atraumatic. Skin: Color, texture, turgor normal. No rashes or lesions Musculoskeletal: No gross joint deformities. Neurological: Pain Behaviors: no pain behaviors observed Mental Status: Alert and oriented to person, place and time. Affect is normal and appropriate. Speech is spontaneous and fluent without dysarthria, normal in rate, volume and articulation, and clear,coherent, and relevant. Short and long-term memory, cognition and general fund of knowledge are good. Attention span and concentration are good. Gait examination is normal. ASSESSMENT/PLAN: 1. Chronic migraine without aura, intractable, without status migrainosus (G43.719) 2. 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 Occipital neuralgia of right side (M54.81) - Chronic migraine, trigeminal neuralgia, and occipital neuralgia contributing to episodic facial and head pain. - Initiated gabapentin 300 mg PO daily in the evening, approximately 1 hour before typical onset ofpain (around [id number]). Patient states she is no longer trying to conceive. - Continue baclofen 1/2 tablet PO daily in the morning or as needed for breakthrough pain. 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 - Referral to neuro-writer Dr. Leon Loza at [facility] for evaluation of intermittent diplopia and potential neurological causes. - Referral to physical therapy for management of muscle tension and tightness contributing to nerveirritation. - Follow-up in 6 weeks to assess response to gabapentin and adjust dosage if necessary. 4. Chronic sinusitis, unspecified location (J32.9) - Chronic sinus issues noted on imaging; previous evaluations by ENT specialists with differing opinions on TMJ involvement and deviated septum. - Discussed potential contributions of sinusitis to overall symptomatology; surgical intervention for deviated septum deemed unlikely to resolve current symptoms. - Continue current management; monitor for any changes or worsening of sinus symptoms. MEDICATION TREATMENT: Medications to Start Taking gabapentin (NEURONTIN) 300 mg capsule Take 1 capsule by mouth daily at bedtime for 90 days. Discussed pathophysiology of headache. Discussed use of headache diary. Discussed triggers and lifestyle modifications including limiting caffeine consumption. Discussed treatment options, both abortive and preventive medications. Instructed patient about medications. Headache education was done. Discussed lifestyle modification including increased oral hydration, decreased caffeine, exercise and stress management. Discussed treatment options including preventive and acute medications, natural supplements, and infusion therapy. Discussed medication overuse headache and to limit use of acute treatments to no more than 2 days/week or 10 days/month. Discussed medication side effects, adverse reactions and drug interactions. RESEARCH: None at this time Follow-up: 3 months Level of service: [facility] level 4 (30-39 min). Time spent 30 min on the day of service, which included preparing to see the patient, [id number] patient care, completing clinical documentation, obtaining and/or reviewing separately obtained history, performing a medically appropriate examination, and counseling and educating the patient/family/caregiver. Maggy Jacobo APRN.[employer] Headache Section [facility] March 15, 2025 documented in this encounterMer[facility] Miscellaneous Notes* Telephone Encounter - Luanne Maagña - 03/08/2025 4:28 PM EDT Patient last seen on 03/03/25 [facility] Telephone encounter Note * Telephone Encounter - Luanne Magaña - 03/08/2025 4:28 PM EDT Patient last seen on 03/03/25 [facility]04-10-2025 Instructions* Patient Instructions* Marii Phillips APRN.CNP - 03/03/2025 8:31 AM EDT Referral to our Neuro Obstetrics team has been placed. This team is Dr. Mary Ellen Bean or Dr. Sherin Butt. Please call [phone] to schedule. documented in this encounterMer[facility]04[facility] History of Present illness Narrative* Marii Phillips APRN.CNP - 03/03/2025 7:00 AM EDT Images from the original note were not included. Headache Center - Follow up Virtual Visit Patient's headache clinic evaluation was scheduled as a virtual visit using the following platform [employer] I have communicated my name and active licensure. The patient's identity and physical location wereverified at the time of this visit. Either the patient or their legal business development representative has been informed of the risks and benefits of -- and alternatives to -- treatment through a remote evaluation andconsents to proceed with the evaluation remotely. Location: [place] Accompanied by: Self Primary Problem List: There is no problem list on file for this patient. Chief Complaint: Follow-up Impression and Plan from last visit: Virtual visit 01/06/2025 with aMggy Jacobo CNP. Kierra Natarajan is a 34-year-old female with history significant for facial pain, trigeminal neuralgia, obesity, ADHD, anxiety and depression. At her last visit she was to trial Baclofen as needed. Interval Headache History: For the first month, she did see benefit with taking Baclofen once daily. She had reduced episodes of pain. Since she was feeling better, she stopped taking the Baclofen for a few days to see how sheresponded. The third day she did not take the Baclofen she started to have return of the pain. The past week she started to have burning along the right side of her face that is radiating frontally and to her ear that returned. She had to leave work an hour early due to the pain one day. She tried Rizatriptan which led to side effects. She also took Motrin which provided minimal benefit. She has tried to take another dose of Baclofen but this can lead to side effects at times as well. She has been feeling much better starting yesterday and today. She is taking Magnesium tablet at night. She is still trying for at this time. Trigeminal Neuralgia HPI Onset: August, - Pt reports right facial pain occurred in setting of stress (mother dx with dementia, and father septic at the onset). A few months prior to this, she started getting occipital nerve pain on the R. She did receive occipital nerve block at that time, helped, but then pain returned and then she started to have the facial pain in August. Pt also reports lymphadenopathy around time of onset, but no diagnosis. LAD resolved over 3-4 weeks. Side: Right Distribution: V2, V3 (mostly) and V1 Any pain on the side or back of head: Yes, she does get pain in the occipital area when severe and this can radiate to the front (lightening bolt, pressure). Can radiate down the R side of her neck at times. Character: burning, electric shock, zaps , shooting, talking, yawning Duration: Seconds, but will return over and over. Pain-free between episodes: Yes Triggers: eating/chewing, brushing teeth, brushing her hair Sensory abnormalities: Yes - she reports numbness at times on right. Initial benefit from Tegretol/Trileptal: Carbamazepine/Oxcarbazepine: helpful for the pain, but didnot entirely elayne it. Side effects with Tegretol (possibly contributing to lymphadenopathy she had?). Trileptal was more tolerable than Tegretol, but she weaned herself off given improvement in symptoms. History of MS: No History of Lyme disease: No History of shingles facial rash: No History of dental/oral surgery: No History of facial/plastic surgery: No Type of Trigeminal Neuralgia: painful trigeminal neuropathy Other Therapies Nerve blocks Anti-Convulsant Carbamazepine (Tegretol) side effects Oxcarbazepine (Trileptal) side effects Anti-Migraine Rizatriptan (Maxalt) dizziness, off balance, loopy Muscle Relaxer Baclofen (Lioresal) History reviewed. No pertinent past medical history. History reviewed. No pertinent surgical history. ALLERGIES Allergen Reactions Dextromethorphan-Gu* Unknown Issues and questions to be addressed: Medications baclofen 10 mg tablet Take half-1 tablet twice a day as needed for facial pain, may cause drowsiness metFORMIN ER (GLUCOPHAGE XR) 500 mg 24 hr tablet Take 500 mg by mouth once daily. hydrOXYzine HCl (ATARAX) 10 mg tablet Take 10 mg by mouth as needed. I have reviewed the Mariano Status Assessment responses and discussed these with the patient: Yes, Marii Phillips, ISIDORO.[employer] HEADACHE SCORES: 11/22/2024 01/04/2025 03/03/2025 Headache Questions ID Migraine Screener: 3 (Positive) ER visits in the last year: 3 Hospital stays in the last year: 0 Days missed from work or school in the last month: 45 Days headache pain free in the last month: 15 Days per month with ALL of the following symptoms - decreased productivity, light sensitivity and nausea: 25 Days per month with mild/moderate face pain: 8 20 Days per month with severe face pain: 3 5 Days per month free from face pain: 21 PRN medication usage in the last month: 30 10 3 11/22/2024 HIT-6 HIT-6 68 (Severe impact) 11/22/2024 03/03/2025 JOHNNIE - 2/7 SCORES JOHNNIE-2 Score 6 2 JOHNNIE-7 Score 15 01/04/2025 03/03/2025 Pain Disability Index PDI Score 35 55 11/22/2024 Migraine Specific QOL - Higher scores indicate better HRQL Role Function-Restrictive Transformed Score (range: 0-100) 34.29 Role Function-Preventive Transformed Score (range: 0-100) 40 Emotional Function Transformed Score (range: 0-100) 6.67 11/22/2024 01/04/2025 03/03/2025 PHQ-9 Score 20 14 22 Studies to Review: MRI Head/Brain - Last 2 Impressions MRI BRAIN WO/W IVCON Exam End: 12/14/2024 11:22 AM (Final result) Impression: IMPRESSION: No acute brain findings. No mass effect or abnormal brain enhancement. No abnormal cranial nerve enhancement or mechanical impingement. No ... MRI BRAIN WO/W IVCON Exam End: 09/27/2024 4:34 PM (Final result) MRA Head and/or Neck - Last 2 Impressions MRA BRAIN WO IVCON Exam End: 12/14/2024 11:06 AM (Final result) Impression: IMPRESSION: No acute brain findings. No mass effect or abnormal brain enhancement. No abnormal cranial nerve enhancement or mechanical impingement. No evidence for an infiltrative process at the skull base. Minor ethmoid inflammatory mucosal change. Normally patent intracranial arterial vasculature. No evidence for vascular malformation or aneurysm. 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 Sanitation Lead: [facility] Transcribe Date/Time: Dec 14 2024 11:24A Dictated by : EVELIA RUBIN MD This examination was interpreted and the report reviewed and electronically signed by: EVELIA RUBIN MD on Dec 14 2024 11:34AM EST CT Head/Brain - Last [address] BRAIN WO IVCON Exam End: 06/19/2020 4:05 PM (Final result) CTA Head and/or Neck - Last 2 CTA NECK W IVCON Collected: 10/07/2024 6:38 AM (Final result) New Health Issues: No New Social History: No New Family History: No Review of Systems: Review of system: unchanged from the previous visit (sleep patterns, mood, energy, appetite, stress, exercising). Physical Examination: Vital Signs: There were no vitals taken for this visit. General: Well appearing, in no acute distress, alert. Pain Behaviors: No pain behaviors observed. Neurological: Mental Status: Alert and oriented to person, place and time. Affect is normal and appropriate. Speech is spontaneous and fluent without dysarthria, normal in rate, volume and articulation, and clear,coherent, and relevant. Short and adjunct faculty for medical terminology memory, cognition and general fund of knowledge are good. Attention span and concentration are excellent. HEENT: Head is normocephalic and features were symmetric. Musculoskeletal: Patient is able to sit upright throughout the appointment. Cranial Nerves: III, IV, -EOMI: full. VII-face is symmetric without evidence of weakness. VIII-hearing intact. IMPRESSION: Right trigeminal neuralgia (primary encounter diagnosis) Trigeminal nerve disorder Occipital neuralgia of right side Kierra Natarajan is a 34-year-old female with history significant for facial pain, trigeminal neuralgia, obesity, ADHD, anxiety and depression. She presents virtually for follow-up regarding headache andfacial pain consistent with right sided trigeminal neuralgia vs. neuropathy and likely occipital neuralgia. Workup with MRI/MRA Brain have been unrevealing for secondary cause. She is currently taking Magnesium supplementation and Baclofen PRN. She was doing much better for a period of time, but did have flaring of symptoms over the past week. She is feeling much better again starting yesterday and today. 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 She will continue Baclofen as needed and we discussed trial of half tablet/dosing to see if better tolerated. She is aware to stop this if . I also advised referral to Neuro Obstetrics to further review possible treatment options for her pain and symptoms during this time, especially if symptoms were to return. PLAN: Facial pain MANAGEMENT: (You are the primary guardian of your health and facial pain. Keep track ofall medications: This includes the reason for use, side effects and benefits.) MEDICATION TREATMENT: Abortive therapy: -Baclofen PRN. She is aware to not take in . Preventive therapy: -Magnesium. -Could consider nerve block with lidocaine only. -Referral to Neuro Obstetrics - Dr. Bean or Dr. Butt. Facial pain education was done. Discussed treatment options including preventive and acute medications, natural supplements, and infusion therapy. Discussed medication side effects, adverse reactionsand drug interactions. Follow-up: PRN, regularly scheduled appointment Level of service: Est level 4 (30-39 min). Time spent 34 min on the day of service, which included preparing to see the patient, [id number] patient care, completing clinical documentation, obtaining and/or reviewing separately obtained history, performing a medically appropriate examination, and counseling and educating the patient/family/caregiver. Marii Phillips APRN.LUTHER documented in this [facility] NoteHNO ID: [id number] Author: MARII PHILLIPS APRN.LUTHER Service: ? Author Type: Nurse Practitioner Type: Progress Notes Filed: 03/03/2025 08:33 Note Text: Headache Center - Follow up Virtual Visit Patient's headache clinic evaluation was scheduled as a virtual visit using the following platform ZOOM I have communicated my name and active licensure. The patient's identity and physical location were verified at the time of this visit. Either the patient or their legal business development representative has been informed of the risks and benefits of -- and alternatives to -- treatment through a remote evaluation and consents to proceed with the evaluation remotely. Location: [place] Accompanied by: Self Primary Problem List: There is no problem list on file for this patient. Chief Complaint: Follow-up Impression and Plan from last visit: Virtual visit 01/06/2025 with Maggy Jacobo CNP. Kierra Natarajan is a 34-year-old female with history significant for facial pain, trigeminal neuralgia, obesity, ADHD, anxiety and depression. At her last visit she was to trial Baclofen as needed. Interval Headache History: For the first month, she did see benefit with taking Baclofen once daily. She had reduced episodes of pain. Since she was feeling better, she stopped taking the Baclofen for a few days to see how she responded. The third day she did not take the Baclofen she started to have return of the pain. The past week she started to have burning along the right side of her face that is radiating frontally and to her ear that returned. She had to leave work an hour early due to the pain one day. She tried Rizatriptan which led to side effects. She also took Motrin which provided minimal benefit. She has tried to take another dose of Baclofen but this can lead to side effects at times as well. She has been feeling much better starting yesterday and today. She is taking Magnesium tablet at night. She is still trying for at this time. Trigeminal Neuralgia HPI Onset: August, - Pt reports right facial pain occurred in setting of stress (mother dx with dementia, and father septic at the onset). A few months prior to this, she started getting occipital nerve pain on the R. She did receive occipital nerve block at that time, helped, but then pain returned and then she started to have the facial pain in August. Pt also reports lymphadenopathy around time of onset, but no diagnosis. LAD resolved over 3-4 weeks. Side: Right Distribution: V2, V3 (mostly) and V1 Any pain on the side or back of head: Yes, she does get pain in the occipital area when severe and this can radiate to the front (lightening bolt, pressure). Can radiate down the R side of her neck at times. Character: burning, electric shock, zaps , shooting, talking, yawning Duration: Seconds, but will return over and over. Pain-free between episodes: Yes Triggers: eating/chewing, brushing teeth, brushing her hair Sensory abnormalities: Yes - she reports numbness at times on right. Initial benefit from Tegretol/Trileptal: Carbamazepine/Oxcarbazepine: helpful for the pain, but did not entirely elayne it. Side effects with Tegretol (possibly contributing to lymphadenopathy she had?). Trileptal was more tolerable than Tegretol, but she weaned herself off given improvement in symptoms. History of MS: No History of Lyme disease: No History of shingles facial rash: No History of dental/oral surgery: No History of facial/plastic surgery: No Type of Trigeminal Neuralgia: painful trigeminal neuropathy Other Therapies Nerve blocks Anti-Convulsant Carbamazepine (Tegretol) side effects Oxcarbazepine (Trileptal) side effects Anti-Migraine Rizatriptan (Maxalt) dizziness, off balance, loopy Muscle Relaxer Baclofen (Lioresal) History reviewed. No pertinent past medical history. History reviewed. No pertinent surgical history. ALLERGIES Allergen Reactions Dextromethorphan-Gu* Unknown Issues and questions to be addressed: Medications baclofen 10 mg tablet Take half-1 tablet twice a day as needed for facial pain, may cause drowsiness metFORMIN ER (GLUCOPHAGE XR) 500 mg 24 hr tablet Take 500 mg by mouth once daily. hydrOXYzine HCl (ATARAX) 10 mg tablet Take 10 mg by mouth as needed. I have reviewed the Mariano Status Assessment responses and discussed these with the patient: Yes, Marii Phillips APRN.[facility] [employer] [facility] HEADACHE SCORES: 11/22/2024 01/04/2025 03/03/2025 Headache Questions ID Migraine Screener: 3 (Positive) ER visits in the last year: 3 Hospital stays in the last year: 0 Days missed from work or school in the last month: 45 Days headache pain free in the last month: 15 Days per month with ALL of the following symptoms - decreased productivity, light sensitivity and nausea: 25 Days per month with mild/moderate face pain: 8 20 Days per month with severe face pain: 3 5 Days per month free from face (more content not included)...[facility]03-31-2025 History of Present illness Narrative* Thien Silva MD - 02/21/2025 1:30 PM EDT Images from the original note were not included. Thien Silva MD Obstetrics and Gynecology Patient: Kierra Natarajan, : 1990 (34 y.o.) DOS 02/21/25 Exam Date: 02/21/2025 HPI: Establishing care. She feels a lump in her right breast. She describes a small peas-sized nodule at10:00 of right nipple. Noticed it on a BSE. Nontender. No drainage. No FH of breast cancer Visit Vitals BP 122/82 Wt 230 lb LMP 01/24/2025 BMI 33.97 kg/m OB Status Having periods Smoking Status Former BSA 2.25 m OB History Para Term AB Living 0 0 0 0 0 0 SAB IAB Ectopic Multiple Live Births 0 0 0 0 0 Obstetric Comments Pap: 08/17-Neg AKHIL: HPV Neg No control; irregular, scant blood loss, LMP: 01/24/25 Medication and Allergies Medication Documentation Review Audit Reviewed by Aleksandra Black MA (Disability Services Coordinator) on 02/21/25 at 1326 Medication Order Taking? Sig Documenting Provider Last Dose Status baclofen (Lioresal) 10 MG tablet [id number] TAKE 1/2 TO 1 (ONE-HALF TO ONE) TABLET BY MOUTH TWICE DAILY NEEDED FOR FACIAL PAIN MAY CAUSE DROWSINESS Bruno Frost MD Active carBAMazepine ER (Carbatrol) 300 MG 12 hr capsule [id number] Take 1 capsule (300 mg) by mouth in the morning and 1 capsule (300 mg) before bedtime. Do not crush or chew.. AI Pantoja 10/23/24 8711 hydrOXYzine HCl (Atarax) 10 MG tablet [id number] Take 50 mg by mouth 3 (three) times a day as needed Historical Provider, Active ibuprofen 800 MG tablet [id number] Take 600 mg by mouth every 6 (six) hours if needed for moderate pain Jeremy Real DO Active metFORMIN XR (Glucophage-XR) 500 MG 24 hr tablet [id number] TAKE 1 TABLET BY MOUTH IN THE EVENING WITH A MEAL DO NOT CRUSH CHEW OR SPLIT Bruno Frost MD Active rizatriptan (Maxalt) 10 MG tablet [id number] TAKE 1 TABLET BY MOUTH ONCE DAILY A 1 TIME DOSE, IF NEEDED FOR MIGRAINE. MAY REPEAT IN 2 HOURS IF UNRESOLVED. DO NOT EXCEED 30MG IN 24 HOURS. Bruno Frost MD Active Allergies Allergen Reactions Dextromethorphan-Guaifenesin Past Medical History: Diagnosis Date ADHD (attention deficit hyperactivity disorder) ([facility]) [facility]xiety Depression ([facility]) Ear problems Head injury October 16 Infertility, female Migraine 05/2024 PTSD (post-traumatic stress disorder) ([facility]) Past Surgical History: Procedure Laterality Date ADENOIDECTOMY 99 DILATION AND CURETTAGE OF UTERUS HYSTEROSCOPY MR ANGIOGRAM HEAD WO IV CONTRAST 12/14/2024 MR ANGIOGRAM HEAD WO IV CONTRAST 12/14/2024 PELVIC LAPAROSCOPY TONSILLECTOMY Physical Exam: Objective Physical Exam Constitutional: Appearance: Normal appearance. Genitourinary: Vulva normal. Genitourinary Comments: I suspect this is normal breast tissue No vaginal discharge or bleeding. Right Adnexa: not palpable. Left Adnexa: not palpable. No cervical lesion. Uterus is not enlarged or tender. Breasts: Left: Normal. Chest: Abdominal: Palpations: Abdomen is soft. Neurological: Mental Status: She is alert. Assessment/Plan ICD-10-CM 1. Mass of right breast, unspecified quadrant N63.10 Bilateral diagnostic mammogram with tomosynthesis Check nick dx mammo Orders Placed This Encounter Procedures Bilateral diagnostic mammogram with tomosynthesis U/S if indicated Standing Status: Future Standing Expiration Date: 04/23/2026 Order Specific Question: Is the patient ? Answer: No Order Specific Question: Reason for exam: Answer: Palpable lump @ 10 o'clock of the right nipple documented in this encounterMer[facility] [id number] History of Present illness Narrative* Maggy Jacobo APRN.[facility] - 01/06/2025 8:00 AM EST Images from the original note were not included. Headache Center - Follow up Virtual Visit Patient's headache clinic evaluation was scheduled as a virtual visit using the following platform Zoom Kierra Natarajan was identified by name and and consented to the video evaluation and its limitations. Based on this evaluation it may be necessary for them to schedule a follow up evaluation with meor other neurologists for formal physical examination and if necessary, other studies. I have communicated my name and active licensure. The patient's identity and physical location wereverified at the time of this visit. Either the patient or their legal business development representative has been informed of the risks and benefits of -- and alternatives to -- treatment through a remote evaluation andconsents to proceed with the evaluation remotely. Accompanied by: Self Primary Problem List: There is no problem list on file for this patient. Chief Complaint: facial pain LV: 11/23/24 Dr. 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 She needs MRI-Brain, MRA-Brain to r/o vascular loop contacting the RIGHT TN. Previousneuroimaging has effectively excluded other secondary reasons for the TN. ? Component of TMJ causing the pain--she notes history of bruxism. She was improved with use of carbamazepine and oxcarbazepine, but did not tolerate side-effects. She declines new med at this time due to history of intolerance. If there is no reason for the pain on the upcoming MRI, then would r/o TMJ as cause vs idiopathic TN. F/U after MRI-Brain, MRA-Brain. 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 Since the last visit, the patient states that her headaches have improved. Repeat MRI stable, pain has been better overall in last few weeks. Went 3 weeks without any pain at all, then had Covid and Flu and pain returned but not as frequent. She thinks anxiety is playing a role in pain frequency. Actively trying to conceive. Headache HPI Trigeminal Neuralgia HPI Onset: August, - Pt reports right facial pain occurred in setting of stress (mother dx with dementia, and father septic at the onset).. Pt also reports lymphadenopathy around time of onset, butno diagnosis. LAD resolved over 3-4 weeks. Her facial pain has improved over time, but episodes still occur twice daily at minimum. Side: right Distribution: V2, V3 and V1 - Majority V2, V3. Any pain on the side or back of head: Yes Character: burning and aching Duration: Episodes would occur seconds to minutes, but at times could last 2-3 hours. Pain-free between episodes: Yes Triggers: eating/chewing and brushing teeth Sensory abnormalities: Yes - she reports RIGHT numbness at times. Initial benefit from Tegretol/Trileptal: Carbamazepine/Oxcarbazepine: helpful for the pain, but didnot entirely elayne it. 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 Preventative: none Abortive: satya Mari History reviewed. No pertinent past medical history. History reviewed. No pertinent surgical history. ALLERGIES Allergen Reactions Dextromethorphan-Gu* Unknown Current Medications: baclofen 10 mg tablet Take half-1 tablet twice a day as needed for facial pain, may cause drowsiness metFORMIN ER (GLUCOPHAGE XR) 500 mg 24 hr tablet Take 500 mg by mouth once daily. hydrOXYzine HCl (ATARAX) 10 mg tablet Take 10 mg by mouth as needed. I have reviewed the Mariano Status Assessment responses and discussed these with the patient: yes Maggy Jacobo APRN.[facility] [employer] HEADACHE SCORES: 11/22/2024 01/04/2025 Headache Questions ID Migraine Screener: 3 (Positive) ER visits in the last year: 3 Hospital stays in the last year: 0 Days missed from work or school in the last month: 45 Days headache pain free in the last month: 15 Days per month with ALL of the following symptoms - decreased productivity, light sensitivity and nausea: 25 Days per month with mild/moderate face pain: 8 Days per month with severe face pain: 3 Days per month free from face pain: 21 PRN medication usage in the last month: 30 10 11/22/2024 HIT-6 HIT-6 68 (Severe impact) 11/22/2024 JOHNNIE - 2/7 SCORES JOHNNIE-2 Score 6 JOHNNIE-7 Score 15 01/04/2025 Pain Disability Index PDI Score 35 11/22/2024 Migraine Specific QOL - Higher scores indicate better HRQL Role Function-Restrictive Transformed Score (range: 0-100) 34.29 Role Function-Preventive Transformed Score (range: 0-100) 40 Emotional Function Transformed Score (range: 0-100) 6.67 11/22/2024 01/04/2025 PHQ-9 Score 20 14 Studies to Review: No MRI Head/Brain - Last 2 Impressions MRI BRAIN WO/W IVCON Exam End: 12/14/2024 11:22 AM (Final result) Impression: IMPRESSION: No acute brain findings. No mass effect or abnormal brain enhancement. No abnormal cranial nerve enhancement or mechanical impingement. No ... MRI BRAIN WO/W IVCON Exam End: 09/27/2024 4:34 PM (Final result) MRA Head and/or Neck - Last 2 Impressions MRA BRAIN WO IVCON Exam End: 12/14/2024 11:06 AM (Final result) Impression: IMPRESSION: No acute brain findings. No mass effect or abnormal brain enhancement. No abnormal cranial nerve enhancement or mechanical impingement. No evidence for an infiltrative process at the skull base. Minor ethmoid inflammatory mucosal change. Normally patent intracranial arterial vasculature. No evidence for vascular malformation or aneurysm. 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 Sanitation Lead: DIOGO Transcribe Date/Time: Dec 14 2024 11:24A Dictated by : EVELIA RUBIN MD This examination was interpreted and the report reviewed and electronically signed by: EVELIA RUBIN MD on Dec 14 2024 11:34AM EST CT Head/Brain - Last [address] BRAIN WO IVCON Exam End: 06/19/2020 4:05 PM (Final result) CTA Head and/or Neck - Last 2 CTA NECK W IVCON Collected: 10/07/2024 6:38 AM (Final result) Labs to Review: No New Health Issues: No New Family History: No Review of Systems: Review of system: unchanged from the previous visit (sleep patterns, mood, energy, appetite, stress, exercising). Physical Examination: Vital Signs: There were no vitals taken for this visit. General: well appearing, in no acute distress, alert Pain Behaviors: no pain behaviors observed Neurological: Mental Status: Alert and oriented to person, place and time. Affect is normal and appropriate. Speech is spontaneous and fluent without dysarthria, normal in rate, volume and articulation, and clear,coherent, and relevant. Short and long-term memory, cognition and general fund of knowledge are good. Attention span and concentration are excellent. HEENT: Head is normocephalic and features were symmetric. Musculoskeletal: Patient able to sit up right in chair for entirety of visit. Cranial Nerves: III, IV, -EOMI: full. VII-face is symmetric without evidence of weakness. VIII-hearing intact. 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 Her neurological examination is essentially normal at this virtual visit. Pain relatively well controlled at this time, she is actively trying to conceive so she is not interested in prophylactic medication at this time. Will trial baclofen as rescue option, she had this in the past during ED visit and found it useful. Will plan for follow- up in 3 months, Patient verbalized understanding and agreed to treatment plan. PLAN: -Baclofen PRN for facial pain -Follow up 3 months HEADACHE MANAGEMENT: (You are the primary guardian of your health and headache. Keep track of all medications: This includes the reason for use, side effects and benefits.) MEDICATION TREATMENT: Medications to Start Taking baclofen 10 mg tablet Take half-1 tablet twice a day as needed for facial pain, may cause drowsiness Discussed treatment options, both abortive and preventive medications. Instructed patient about medications. Discussed testing. Headache education was done. Discussed lifestyle modification including increased oral hydration, decreased caffeine, exercise and stress management. Discussed treatment options including preventive and acute medications, natural supplements, and infusion therapy. Discussed medication overuse headache and to limit use of acute treatments to no more than 2 days/week or 10 days/month. Discussed medication side effects, adverse reactions and drug interactions. Written educational materials and patient instructions outlining all of the above were given. RESEARCH: None at this time Follow-up: 3 months, PRN Level of Service: Virtual Visit 30 minutes Maggy Jacobo APRN.[facility] Headache Section [facility] January 06, 2025 documented in this encounterMer[facility]02-13-2025 NoteHNO ID: [id number] Author: MAGGY JACOBO APRN.LUTHER Service: ? Author Type: Nurse Practitioner Type: Progress Notes Filed: 01/06/2025 08:19 Note Text: Headache Center - Follow up Virtual Visit Patient's headache clinic evaluation was scheduled as a virtual visit using the following platform Zoom Kierra Natarajan was identified by name and and consented to the video evaluation and its limitations. Based on this evaluation it may be necessary for them to schedule a follow up evaluation with me or other neurologists for formal physical examination and if necessary, other studies. I have communicated my name and active licensure. The patient's identity and physical location were verified at the time of this visit. Either the patient or their legal business development representative has been informed of the risks and benefits of -- and alternatives to -- treatment through a remote evaluation and consents to proceed with the evaluation remotely. Accompanied by: Self Primary Problem List: There is no problem list on file for this patient. Chief Complaint: facial pain LV: 11/23/24 Dr. 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 She needs MRI-Brain, MRA-Brain to r/o vascular loop contacting the RIGHT TN. Previous neuroimaging has effectively excluded other secondary reasons for the TN. ? Component of TMJ causing the pain--she notes history of bruxism. She was improved with use of carbamazepine and oxcarbazepine, but did not tolerate side-effects. She declines new med at this time due to history of intolerance. If there is no reason for the pain on the upcoming MRI, then would r/o TMJ as cause vs idiopathic TN. F/U after MRI-Brain, MRA-Brain. 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 Since the last visit, the patient states that her headaches have improved. Repeat MRI stable, pain has been better overall in last few weeks. Went 3 weeks without any pain at all, then had Covid and Flu and pain returned but not as frequent. She thinks anxiety is playing a role in pain frequency. Actively trying to conceive. Headache HPI Trigeminal Neuralgia HPI Onset: August, - Pt reports right facial pain occurred in setting of stress (mother dx with dementia, and father septic at the onset).. Pt also reports lymphadenopathy around time of onset, but no diagnosis. LAD resolved over 3-4 weeks. Her facial pain has improved over time, but episodes still occur twice daily at minimum. Side: right Distribution: V2, V3 and V1 - Majority V2, V3. Any pain on the side or back of head: Yes Character: burning and aching Duration: Episodes would occur seconds to minutes, but at times could last 2-3 hours. Pain-free between episodes: Yes Triggers: eating/chewing and brushing teeth Sensory abnormalities: Yes - she reports RIGHT numbness at times. Initial benefit from Tegretol/Trileptal: Carbamazepine/Oxcarbazepine: helpful for the pain, but did not entirely elayne it. 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 Preventative: none Abortive: Leonardaltsatya History reviewed. No pertinent past medical history. History reviewed. No pertinent surgical history. ALLERGIES Allergen Reactions Dextromethorphan-Gu* Unknown Current Medications: baclofen 10 mg tablet Take half-1 tablet twice a day as needed for facial pain, may cause drowsiness metFORMIN ER (GLUCOPHAGE XR) 500 mg 24 hr tablet Take 500 mg by mouth once daily. hydrOXYzine HCl (ATARAX) 10 mg tablet Take 10 mg by mouth as needed. I have reviewed the Mariano Status Assessment responses and discussed these with the patient: yes Maggy Jacobo APRN.[employer] HEADACHE SCORES: 11/22/2024 01/04/2025 Headache Questions ID Migraine Screener: 3 (Positive) ER visits in the last year: 3 Hospital stays in the last year: 0 Days missed from work or school in the last month: 45 Days headache pain free in the last month: 15 Days per month with ALL of the following symptoms - decreased productivity, light sensitivity and nausea: 25 Days per month with mild/moderate face pain: 8 Days per month with severe face pain: 3 Days per month free from face pain: 21 PRN medication usage in the last month: 30 10 11/22/2024 HIT-6 HIT-6 68 (Severe impact) 11/22/2024 JOHNNIE - 2/7 SCORES JOHNNIE-2 Score 6 JOHNNIE-7 Score 15 01/04/2025 Pain Disability Index PDI Score 35 (more content not included)...[facility]02-03-2025 NoteDate of Telehealth Visit: 12/27/2024 Chief Complaint Patient presents with Flu Symptoms Patient presents to be seen due to body aches, migraine, congestion. She states symptoms started last Friday. 34-year-old female presented today for flulike symptoms. Sick with stomach flu 1 week ago. Placida back to normal last couple days now feels headache, chest congestion. Body aches and drainage. Have not been tested for covid or flu. Tylenol and motrin rotated and rizatriptan for headache. Cough drops for throat and staying hydrated. and patients are sick as well. Tried emory yesterday as well. Flu Symptoms Associated symptoms include fatigue and myalgias. Pertinent negatives include no abdominal pain, arthralgias, congestion, fever or sore throat. Review of Systems Constitutional: Positive for fatigue. Negative for fever. HENT: Negative for congestion and sore throat. Respiratory: Negative for shortness of breath. Gastrointestinal: Negative for abdominal pain. Musculoskeletal: Positive for myalgias. Negative for arthralgias. Psychiatric/Behavioral: The patient is not nervous/anxious. All other systems reviewed and are negative. General: Alert, pleasant and cooperative, NAD, nontoxic, calm, appears generally ill HEENT: MMM, no icterus or erythema, no facial asymmetry Thorax/Lungs: unlabored, Speaking in full sentences without shortness of breath or cough. Abd: nondistended Musc/Skel: muscle strength and tone symmetric, ROM WNL Neuro: A&O 3, CN WNL, memory intact, speech WNL Psych: pleasant, mood appropriate, responds appropriately No problem-specific Assessment & Plan notes found for this encounter. Kierra was seen today for flu symptoms. Diagnoses and all orders for this visit: Flu-like symptoms (Primary) - oseltamivir (Tamiflu) 75 mg capsule; Take 1 capsule (75 mg) by mouth two times daily for 5 days. Myalgia Will treat the patient with Tamiflu if she is indeed positive for the flu. She is getting go to the pharmacy right now and check for COVID and flu. If she has COVID-positive she will make sure that message us and we will decide to treat her with Paxlovid possibly. At this time though I do have high suspicion for the flu and I will prescribe the medication if she does not have the flu she will not take it now. If she is negative for both and continues to have symptoms we will treat her with antibiotic most likely getting a week. I would like the patient to give us a call let us know how she does especially if her symptoms worsen over this week. Patient agreeable to plan of care will let us know. If it does not get worse she will go to the ER. The patient was notified that using 3rd republican telecommunication application (e.g., [employer]) is not HIPPA compliant and may carry some privacy risks. Yes The visit was conducted [id number] with the use of audio and video technology [facility] between patient and provider for a virtual visit. Verbal consent to provide and bill this service was obtained on 12/27/2024. No signature was obtained due to the COVID-19 pandemic. Patient Location: Patient Home I spent 20 minutes of total time on the day of the visit. This time was spent preparing for the visit, obtaining and reviewing any outside history/data, taking a history, performing an exam/evaluation, counseling and educating patient/family about the diagnosis and plan, performing medical decision making, referring to and communicating with other health care referrals, independently interpreting results and documenting in the EMR, and coordinating care. Please see the additional documentation in this note for specific details. Ace Coker MD This note was created with the assistance of a speech-recognition program. While intending to generate a document that accurately reflects the content of the visit, no guarantee can be provided that every mistake has been identified and corrected by editing. Customary discussion of prescribed medication benefits, side effects, and compliance was done. Discussed disease presentation, treatment options, progression, complications, and outcomes with patient during this office visit. Please call our office at [phone] for any questions or concerns regarding your health. In case of emergency please report to the nearest ER for instant management.[facility]01-21-2025 History of Present illness Narrative* Aleksandra Cruz RT(R) - 12/14/2024 10:00 AM EST Radiology Service Progress Note DATE OF SERVICE: December 14, 2024 TIME: 11:12 AM PATIENT IDENTITY VERIFICATION COMPLETED USING TWO (2) STANDARD IDENTIFIERS: Name and Date of confirmed by patient verbally. FALL SCREENING: Has the patient had 2 falls in the last year or 1 fall with injury or currently using an Ambulatory Assistive Device (Walker, Cane, Wheelchair, Crutches, etc.)? No PATIENT GENDER DATA: Assigned female at . status: : No status:NO. PATIENT RELEVANT IMPLANT DATA REVIEWED: Yes PATIENT PRESENTS WITH AN IMPLANTABLE OR ATTACHED PARTS FINISHER: No ALLERGIES: Reviewed and unchanged CONTRAST ALLERGY: NO. EXAM: MRI - CONTRAST TYPE: GROUP II PERIPHERAL IV DATA: Ambulatory: A peripheral IV was started in the Right antecubital site with a Angio cath: 24 gauge. RADIOLOGY DEPARTMENT: MR; Exam(s) Completed: Head: Cranial Nerve, [place] MRA SIGNATURE: MAXX Naranjo) PATIENT NAME: Kierra Natarajan DATE: December 14, 2024 TIME: 11:12 AM documented in this encounterMer[facility]01-21-2025 NoteHNO ID: [id number] Author: ALEKSANDRA CRUZ RT(R) Service: ? Author Type: Technologist Type: Progress Notes Filed: 12/14/2024 11:13 Note Text: Radiology Service Progress Note DATE OF SERVICE: December 14, 2024 TIME: 11:12 AM PATIENT IDENTITY VERIFICATION COMPLETED USING TWO (2) STANDARD IDENTIFIERS: Name and Date of confirmed by patient verbally. FALL SCREENING: Has the patient had 2 falls in the last year or 1 fall with injury or currently using an Ambulatory Assistive Device (Walker, Cane, Wheelchair, Crutches, etc.)? No PATIENT GENDER DATA: Assigned female at . status: : No status: NO. PATIENT RELEVANT IMPLANT DATA REVIEWED: Yes PATIENT PRESENTS WITH AN IMPLANTABLE OR ATTACHED PARTS FINISHER: No ALLERGIES: Reviewed and unchanged CONTRAST ALLERGY: NO. EXAM: MRI - CONTRAST TYPE: GROUP II PERIPHERAL IV DATA: Ambulatory: A peripheral IV was started in the Right antecubital site with a Angio cath: 24 gauge. RADIOLOGY DEPARTMENT: MR; Exam(s) Completed: Head: Cranial Nerve, [place] MRA SIGNATURE: Aleksandra Cruz, RT(R) PATIENT NAME: Kierra Natarajan DATE: December 14, 2024 TIME: 11:12 [facility]12-31-2024 NoteHNO ID: [id number] Author: VINCENZO MUKHERJEE MD Service: ? Author Type: Physician Type: Progress Notes Filed: 11/23/2024 13:44 Note Text: HEADACHE MEDICINE / FACIAL PAIN MEDICINE November 23, 2024 11:20 AM Trigeminal Neuralgia HPI Onset: August, - Pt reports right facial pain occurred in setting of stress (mother dx with dementia, and father septic at the onset).. Pt also reports lymphadenopathy around time of onset, but no diagnosis. LAD resolved over 3-4 weeks. Her facial pain has improved over time, but episodes still occur twice daily at minimum. Side: right Distribution: V2, V3 and V1 - Majority V2, V3. Any pain on the side or back of head: Yes Character: burning and aching Duration: Episodes would occur seconds to minutes, but at times could last 2-3 hours. Pain-free between episodes: Yes Triggers: eating/chewing and brushing teeth Sensory abnormalities: Yes - she reports RIGHT numbness at times. Initial benefit from Tegretol/Trileptal: Carbamazepine/Oxcarbazepine: helpful for the pain, but did not entirely elayne it. 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 No past medical history on file. No past surgical history on file. Current Outpatient Medications Medication Sig metFORMIN ER (GLUCOPHAGE XR) 500 mg 24 hr tablet Take 500 mg by mouth once daily. hydrOXYzine HCl (ATARAX) 10 mg tablet Take 10 mg by mouth as needed. No current facility-administered medications for this visit. ALLERGIES Allergen Reactions Dextromethorphan-Gu* Unknown MRI-Brain 09/27/24: IMPRESSION, MRI Trigeminal: 1. No abnormalities of the cerebellopontine angles. No abnormal enhancement or mass lesion along the course of the trigeminal nerve by MRI. 2. Multifocal bilateral small cervical lymph nodes and parotid enhancing lesions, bilateral, nonspecific. ENT consultation is recommended. These may be infectious, inflammatory or less likely malignant. MRI-Brain 05/13/24: IMPRESSION: Normal appearance of cranial nerves VII/VIII. No cerebellopontine angle or internal auditory canal mass. PHYSICAL EXAMINATION 11/23/24 1042 BP: 146/72 Pulse: 82 Temp: 36.9 ?C (98.4 ?F) Weight: 112.8 kg (248 lb 9.1 oz) Height: 175.5 cm (5' 9.09 ) General appearance: Well appearing, alert, in no acute distress, well-hydrated, well nourished. Head: Normocephalic, no masses, lesions, tenderness or abnormalities Eyes: Anicteric sclera. Pupils are equally round and reactive to light. Extraocular movements are intact. Oropharynx: Lips, mucosa, and tongue normal, teeth and gums normal, oropharynx normal Neck: Supple, no adenopathy; Lungs: Unlabored on room air Extremities: No deformities, edema, skin discoloration, clubbing or cyanosis. Good capillary refill. Musculoskeletal: No joint swelling, deformity, or tenderness Peripheral pulses: Capillary refill <2secs, strong peripheral pulses Neuro: Negative findings: speech normal, mental status intact, cranial nerves 2-12 intact, muscle tone normal, muscle strength normal, finger to nose normal, reflexes normal and symmetric Kierra was seen today for consult. Diagnoses and all orders for this visit: Right trigeminal neuralgia - MRI BRAIN WO/W IVCON; Future - iv contrast (will be provided with radiology test); MRI Brain Inject, intravenously, once for 1 dose.No IV access, insert saline lock prior to beginning of sedation, infusion, injection of imaging exam.Discontinue saline lock post exam. If Pt. 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 She needs MRI-Brain, MRA-Brain to r/o vascular loop contacting the RIGHT TN. Previous neuroimaging has effectively excluded other secondary reasons for the TN. ? Component of TMJ causing the pain--she notes history of bruxism. She was improved with use of carbamazepine and oxcarbazepine, but did not tolerate side-effects. She declines new med at this time due to history of intolerance. If there is no reason for the pain on the upcoming MRI, then would r/o TMJ as cause vs idiopathic TN. F/U after MRI-Brain, MRA-Brain. Vincenzo Mukherjee MD November 23, 2024 1:44 [facility]12-31-2024 History of Present illness Narrative* Vincenzo Mukherjee MD - 11/23/2024 10:51 AM EST HEADACHE MEDICINE / FACIAL PAIN MEDICINE November 23, 2024 11:20 AM Trigeminal Neuralgia HPI Onset: August, - Pt reports right facial pain occurred in setting of stress (mother dx with dementia, and father septic at the onset).. Pt also reports lymphadenopathy around time of onset, butno diagnosis. LAD resolved over 3-4 weeks. Her facial pain has improved over time, but episodes still occur twice daily at minimum. Side: right Distribution: V2, V3 and V1 - Majority V2, V3. Any pain on the side or back of head: Yes Character: burning and aching Duration: Episodes would occur seconds to minutes, but at times could last 2-3 hours. Pain-free between episodes: Yes Triggers: eating/chewing and brushing teeth Sensory abnormalities: Yes - she reports RIGHT numbness at times. Initial benefit from Tegretol/Trileptal: Carbamazepine/Oxcarbazepine: helpful for the pain, but didnot entirely elayne it. 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 No past medical history on file. No past surgical history on file. Current Outpatient Medications Medication Sig metFORMIN ER (GLUCOPHAGE XR) 500 mg 24 hr tablet Take 500 mg by mouth once daily. hydrOXYzine HCl (ATARAX) 10 mg tablet Take 10 mg by mouth as needed. No current facility-administered medications for this visit. ALLERGIES Allergen Reactions Dextromethorphan-Gu* Unknown MRI-Brain 09/27/24: IMPRESSION, MRI Trigeminal: 1. No abnormalities of the cerebellopontine angles. No abnormal enhancement or mass lesion along the course of the trigeminal nerve by MRI. 2. Multifocal bilateral small cervical lymph nodes and parotid enhancing lesions, bilateral, nonspecific. ENT consultation is recommended. These may be infectious, inflammatory or less likely malignant. MRI-Brain 05/13/24: IMPRESSION: Normal appearance of cranial nerves VII/VIII. No cerebellopontine angle or internal auditory canal mass. PHYSICAL EXAMINATION 11/23/24 1042 BP: 146/72 Pulse: 82 Temp: 36.9 C (98.4 F) Weight: 112.8 kg (248 lb 9.1 oz) Height: 175.5 cm (5' 9.09 ) General appearance: Well appearing, alert, in no acute distress, well-hydrated, well nourished. Head: Normocephalic, no masses, lesions, tenderness or abnormalities Eyes: Anicteric sclera. Pupils are equally round and reactive to light. Extraocular movements are intact. Oropharynx: Lips, mucosa, and tongue normal, teeth and gums normal, oropharynx normal Neck: Supple, no adenopathy; Lungs: Unlabored on room air Extremities: No deformities, edema, skin discoloration, clubbing or cyanosis. Good capillary refill. Musculoskeletal: No joint swelling, deformity, or tenderness Peripheral pulses: Capillary refill <2secs, strong peripheral pulses Neuro: Negative findings: speech normal, mental status intact, cranial nerves 2- 12 intact, muscle tone normal, muscle strength normal, finger to nose normal, reflexes normal and symmetric Kierra was seen today for consult. Diagnoses and all orders for this visit: Right trigeminal neuralgia - MRI BRAIN WO/W IVCON; Future - iv contrast (will be provided with radiology test); MRI Brain Inject, intravenously, once for 1 dose.No IV access, insert saline lock prior to beginning of sedation, infusion, injection of imaging exam.Discontinue saline lock post exam. If Pt. 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 She needs MRI-Brain, MRA-Brain to r/o vascular loop contacting the RIGHT TN. Previousneuroimaging has effectively excluded other secondary reasons for the TN. ? Component of TMJ causing the pain--she notes history of bruxism. She was improved with use of carbamazepine and oxcarbazepine, but did not tolerate side-effects. She declines new med at this time due to history of intolerance. If there is no reason for the pain on the upcoming MRI, then would r/o TMJ as cause vs idiopathic TN. F/U after MRI-Brain, MRA-Brain. Vincenzo Mukherjee MD November 23, 2024 1:44 PM documented in this encounterMercy [facility]11-21-2024 NoteFamily Medicine - Outpatient visit 10/14/2024 ELEAZAR NATARAJAN is a 33 y.o. female who [...] at. She is thinking about going [facility] as she lives in [place]. She also experiences migraines and they tend [...] Creatinine 09/26/2024 0.72 BUN/Cre (more content not included)...[facility] 10-13-2024 History of Present illness Narrative* AI Echols - 10/13/2024 1:10 PM EST Reason for Appointment: Patient ID: Kierra Natarajan [...] Diagnosis Date ADHD (attention deficit hyperactivity disorder) ([facility]) Depression ([facility]) Ear problems Head injury October 16 Infertility, female Migraine ([facility]) 05/2024 PTSD (post-traumatic stress disorder) ([facility]) HISTORY PAST MEDICAL HISTORY SOCIAL HISTORY Past Medical History: Diagnosis Date ADHD (attention deficit hyperactivity disorder) ([facility]) Anxiety Depression ([facility] Ear problems Head injury October 16 Infertility, female Migraine ([facility]) 05/2024 PTSD (post-traumatic stress disorder) ([facility]) Social History Tobacco Use [...] Z71.2 Pt present today to have Barb Luke help her understand the results from her MRI/CT report that was done on 09/27/2024 at [facility]. Pt would like to see if [...] behalf of: AI Echols documented in this encounterMercy Hospital [id number] NoteFamily Medicine - Outpatient visit 10/06/2024 HPI: Today for a female [...] Arthritis Mother's Brother Russell Arthritis Mother's Sister [place] Social History: Social [...] 09/26/2024 8.3 (L) AST (more content not included)...[facility]11-08-2024 History of Present illness Narrative* Sudheer Chacon MD - 10/01/2024 8:30 AM EST Subjective Patient ID: Kierra Natarajan is a 33 y.o. female who presents for Facial Pain (MRI 09/27/24 [facility]) Pt reports she has developed painful LAD after her MRI scan. Has not kept appt with Dr Juan. Seen in the ED, but no tx initiated. MRI reviewed and there are no acute findings, but there are mult bilnormal-sized cervical and parotid LN that enhance on [...] Diagnosis Date ADHD (attention deficit hyperactivity disorder) ([facility] Depression ([facility] Ear problems Head injury October 16 Infertility, female Migraine ([facility]) 05/2024 PTSD (post-traumatic stress disorder) ([facility]) Past Surgical History: Procedure [...] prednisone, and check a CBC with diff, ESRand CRP. If no sign of infection on labs recommend hem-onc eval for possible lymphoproliferative d/o. Pt should keep appt with Dr Juan documented in this encounterMercy Hospital [id number] NoteED follow up call Discharged From: [facility] ED Discharge Date: 09/26/2024 Chief Complaint: Swollen [...] she is requesting a referral to Hemo-oncology [facility] for follow up/evaluation. PCP will be notified of request for referral. Stat labs were also completed at [facility] on 10/01/2024. PCP Appointment: 09/23/2024 - last in office appointment with PCP 09/28/2024 - follow up with neurology 10/01/2024 - follow up with ENT (Quin Chacon) New Medications: No new medications Call Us First: Discussed with patient the opportunity to contact this office for all after-hours care questions, 16/06. Discussed with patient this office often has availability for same-day sick appointments.[facility]11-05-2024 NoteReviewing ER visit: ENT should look at the MRI for the parotid gland and lymph node findings. Calcium little low on labs. Make sure she is takign D3 2000 U. Blood work recently showed low vit [facility]11-04-2024 Telephone encounter Note* Telephone Encounter - Ro Forte NP - 09/27/2024 10:49 AM EST I have never seen this with tegretol. If she wants to try a different medication we can do that. I would try cymbalta or gabapentin if she wants to try something different.Let me know and Ill send something in if she wants something different [facility] [id number] Miscellaneous Notes* Telephone Encounter - Ro Forte NP - 09/27/2024 10:49 AM EST I have never seen this with tegretol. If she wants to try a different medication we can do that. I would try cymbalta or gabapentin if she wants to try something different.Let me know and Ill send something in if she wants something different * Telephone Encounter - Toñito Alvarez MA - 09/27/2024 10:18 AM EST On of last week pt was seen by PCP for lumps behind ears, on jaw line, sore throat and swollen glands. PCP said to f/u with our office as this could be a reaction to her med, carbamazepine. 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 Patient went to ER in [place] on Friday and notes that they did labs. Notes that they did not go over anything specific. Told her she was walking talking and breathing and to f/u with PCP / Neurologist. Notes that they put on her pw Upper Respiratory infection, but never discussed this with thept. Patient also notes that she spoke with the pharmacy and since the med was increased she has notpicked up the new dosage. Pharmacy recommended she did not increase dosage until f/u with us. documented in this encounterMercy Hospital [id number] Telephone encounter Note* Telephone Encounter - Toñito Alvarez MA - 09/27/2024 10:18 AM EST On of last pt was seen by PCP for lumps behind ears, on jaw line, sore throat and swollen glands. PCP said to f/u with our office as this could be a reaction to her med, carbamazepine. 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 Patient went to ER in [place] on Friday and notes that they did labs. Notes that they did not go over anything specific. Told her she was walking talking and breathing and to f/u with PCP / Neurologist. Notes that they put on her pw Upper Respiratory infection, but never discussed this with thept. Patient also notes that she spoke with the pharmacy and since the med was increased she has notpicked up the new dosage. Pharmacy recommended she did not increase dosage until f/u with us. [facility] [id number] NoteFamily Medicine - Outpatient visit 09/23/2024 HPI: 33-year-old female presenting today [...] Arthritis Mother's Brother Russell Arthritis Mother's Sister [place] Social History: Social [...] every 12 (twelve) hours if needed. [DISCONTINUED] rruevcoq-zeptrfcff-lqcYIBIZrples (Maxitrol) 3.5mg/mL-10,000 unit/mL-0.1 % ophthalmic suspension INSTILL [...] SS-A (RO) Ab 04/10/2023 (more content not included)...[facility]10-23-2024 Telephone encounter Note* Telephone Encounter - Ro Forte NP - 09/15/2024 10:10 AM EDT This has been taken care of. I do not think these are seizure as she has not altered awareness. We will see what the brain MRI shows. She was started on tegretol. If brain MRI normal and symptoms arepersistent we can consider referral to [facility] and[facility]or [id number] Miscellaneous Notes* Telephone Encounter - Ro Forte NP - 09/15/2024 10:10 AM EDT This has been taken care of. I do not think these are seizure as she has not altered awareness. We will see what the brain MRI shows. She was started on tegretol. If brain MRI normal and symptoms arepersistent we can consider referral to [facility] and/or [facility]. * Telephone Encounter - Emanuel Denney MA - 09/15/2024 9:11 AM EDT Patient called leaving a voicemail stating that [...] would like the MRI order [facility] documented in this encounterMercy [facility] [id number] Telephone encounter Note* Telephone Encounter - Emanuel Denney MA - 09/15/2024 9:11 AM EDT Patient called leaving a voicemail stating that [...] would like the MRI order faxed to [id number] Telephone encounter Note* Telephone Encounter - Ro Forte NP - 09/14/2024 5:44 PM EDT Done [id number] Miscellaneous Notes* Telephone Encounter - Ro Forte NP - 09/14/2024 5:44 PM EDT Done * Telephone Encounter - Toñito Alvarez MA - 09/14/2024 2:08 PM EDT Pharmacy calls stating that the pt is not wanting to cut the baclofen in half and is asking us to send an rx for 5mg tabs to the pharmacy. documented in this encounterMercy Hospital [id number] Telephone encounter Note* Telephone Encounter - Toñito Alvarez MA - 09/14/2024 2:08 PM EDT Pharmacy calls stating that the pt is not wanting to cut the baclofen in half and is asking us to send an rx for 5mg tabs to the pharmacy. [id number] History of Present illness Narrative* Ro Forte NP - 09/13/2024 1:40 PM EDT Images from the original note were not included. Subjective Kierra Natarajan is a 33 y.o. year old female No chief complaint on file. Past Medical History: Diagnosis Date ADHD (attention deficit hyperactivity disorder) ([facility]) Anxiety Depression ([facility]) Head injury October 16 Infertility, female PTSD (post-traumatic stress disorder) ([facility]) Past Surgical History: Procedure [...] 1053 hydrOXYzine HCl (Atarax) 10 MG tablet [id number] Yes Take 10 mg by mouth 3 (three) times a day as needed. Historical Provider, Active ibuprofen 800 MG tablet [id number] Yes Take 800 mg by mouth every 6 (six) hours if needed for moderate pain Jeremy Real, DO Active levoFLOXacin (Levaquin) 250 MG tablet [id number] Yes Take 2 tablets by mouth Daily Jeremy Real, DO Active metFORMIN XR (Glucophage-XR) 500 MG 24 hr tablet [id number] Yes Take 1 tablet (500 mg) by [...] CN II: Visual acuity is normal. Visual cali full to confrontation. CN III, IV, : [...] in upper and lower extremities. Coordination Right: Snqdeu-ph-sawh normal. Rapid alternating movement normal.Left: Txgaev-wv-vqie normal. Rapid alternating movement normal. Gait Casual gait is normal including stance, stride, and arm swing. Motor Examination RUE Strength deltoid, biceps, triceps, wrist extensors, wrist extensors, wrist flexor, college professor strength 5/5. LUE Strength deltoid, biceps, triceps, wrist extensors, wrist extensors, wrist flexor, college professor strength 5/5. RLE Strength illopsoas, quadriceps, tibialis [...] widening of interspinous distance. Posterior ligamentous injury isnot excluded and correlation to lateral flexion-extension views [...] intermittent saddle paresthesias and persistent urinary incontinence. Shealso has unexplained sexual arousal. MRI of the lumber spine was fairly unremarkable but did reporta possible cystic lesion, maybe ovarian, but does [...] well. In September she was helping her glzcpx-hd-scb into a chair and his head hit her in the nose sustaining a nasal fracture. Since then she has had diplopia that seems to be positional dependant but improving. MRI brain was unrevealing. 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 She does state she was thought to have lupusin the past and is following with rheumatology. [...] skull base and behind her right eye thatis consistent with occipital neuralgia. This seems to [...] 3 weeks ago she developed a numbness andsevere sharp shooting pain in the right side of her face. She has been to the ER 3 times in the last 2 weeks with the pain. She was given Baclofen which did seem to help. The pain is primarily in thetrigeminal nerve distribution. Given the location of the pain I do not think an occipital block or trigger injections are going to offer much benefit. Given the acute onset associated with numbness Iwould recommend repeating the brain MRI w/wo contrast to assess for TN impingement or new intracranial pathology. Her MRI brain in April was unrevealing but these symptoms are new. She was given a medrol pack and she can continue that. I will order Tegeretol 200mg BID and continue the baclofen. RECENT EVALUATION 02/2023 - MRI scan of the thoracic [...] by mouth in the morning and 0.5 tablets(5 mg) in the evening and 0.5 tablets [...] to make further recommendations documented in this encounterMercy Hospital [id number] History of Present illness Narrative* Myra Mckenna, YANETH - 09/08/2024 11:10 AM EDT Reason for Appointment: Patient ID: Kierra Natarajan [...] Diagnosis Date ADHD (attention deficit hyperactivity disorder) ([facility]) Depression ([facility]) Head injury October 16 Infertility, female PTSD (post-traumatic stress disorder) ([facility]) HISTORY PAST MEDICAL HISTORY SOCIAL HISTORY Past Medical History: Diagnosis Date ADHD (attention deficit hyperactivity disorder) ([facility]) Anxiety Depression ([facility]) Head injury October 16 Infertility, female PTSD (post-traumatic stress disorder) ([facility]) Social History Tobacco Use [...] nursing note reviewed. Exam conducted with a fusion juncture grinder present. Vitals: Estimated body mass index is [...] and will be scheduled for HSG. Pt voicedunderstanding. Pt to be on femara for 6 months. Pt agreed to plan of care. Pt has stress related totrying to conceive. Pt feels more anxious. Pt to start effexor, rx for effexor faxed to pharmacy. Documented by Myra Mckenna LPN on behalf of: Jeremy Real DO documented in this encounterMercy Hospital [id number] Miscellaneous Notes* Telephone Encounter - Shanasurinder Cain - 08/26/2024 2:47 PM EDT Patient called she is looking for a new provider. She has been having ongoing double vision, she has seen neuro, eye , obgyn, ect. Nobody has an idea what is is going and is freaking out. I want toget her with either you or furlong he's booking out till about October * Telephone Encounter - NORMAN Temple - 08/26/2024 2:47 PM EDT I would feel she is more appropriate for a physician at this time. * Telephone Encounter - Shanasurinder Cain - 08/26/2024 2:47 PM EDT Would you be okay to accept? documented in [facility] Telephone encounter Note* Telephone Encounter - Shanasurinder Cain - 08/26/2024 2:47 PM EDT Patient called she is looking for a new provider. She has been having ongoing double vision, she has seen neuro, eye , obgyn, ect. Nobody has an idea what is is going and is freaking out. I want toget her with either you or furlong he's booking out till about October [facility]10-03-2024 Telephone encounter Note* Telephone Encounter - NORMAN Temple - 08/26/2024 2:47 PM EDT I would feel she is more appropriate for a physician at this time. [facility] Work Phone: [phone] Telephone encounter Note* Telephone Encounter - Shana Cain - 08/26/2024 2:47 PM EDT Would you be okay to accept? [facility]09-26-2024 History of Present illness Narrative* AI Echols - 08/19/2024 9:00 AM EDT Reason for Appointment: Patient ID: Kierra Natarajan is a 33 y.o. female who presents for Well Women Visit Patient presents today for Annual Exam. MEDICATIONS Current Outpatient Medications Medication Instructions ergocalciferol (DRISDOL) 1.25 mg, Oral, Weekly hydrOXYzine HCl (ATARAX) 10 mg, Oral, 3 times daily PRN metFORMIN XR (GLUCOPHAGE-XR) 500 mg, Oral, Daily with evening meal, Do not crush, chew, or split. ALLERGIES [...] Diagnosis Date ADHD (attention deficit hyperactivity disorder) ([facility]) Depression ([facility]) Head injury October 16 Infertility, female PTSD (post-traumatic stress disorder) ([facility]) HISTORY PAST MEDICAL HISTORY SOCIAL HISTORY Past Medical History: Diagnosis Date ADHD (attention deficit hyperactivity disorder) ([facility]) Anxiety Depression ([facility]) Head injury October 16 Infertility, female PTSD (post-traumatic stress disorder) ([facility]) Social History Tobacco Use Smoking status: Former Current packs/day: 0.00 Average packs/day: 1.5 packs/day for 15.9 years (23.9 ttl pk-yrs) Types: Cigarettes Start date: 07/25/2007 Quit date: 06/24/2023 Years since quittin.1 Smokeless tobacco: Never Substance Use Topics Alcohol [...] Exam Constitutional: Appearance: Normal appearance. She is well-developed and normal weight. Genitourinary: Vulva normal. Right Adnexa: not tender and no mass present. Left Adnexa: not tender and no mass present. No cervical discharge. Breasts: Breasts are soft. Right: Normal. Left: Normal. HENT: Head: Normocephalic. Nose: Nose normal. Mouth/Throat: Mouth: Mucous membranes are moist. Cardiovascular: Rate and Rhythm: Normal rate and regular rhythm. Pulses: Normal pulses. Pulmonary: Effort: Pulmonary effort is normal. Breath sounds: Normal breath sounds. Abdominal: General: Bowel sounds are normal. There is no distension. Palpations: Abdomen is soft. Tenderness: There is no abdominal tenderness. There is no guarding or rebound. Musculoskeletal: General: No swelling. Normal range of motion. Cervical back: Normal range of motion. Right lower leg: No edema. Left lower leg: No edema. Neurological: General: No focal deficit present. Mental Status: She is alert and oriented to person, place, and time. Skin: General: Skin is warm and dry. Psychiatric: Mood and Affect: Mood normal. Behavior: Behavior normal. Thought Content: Thought content normal. Judgment: Judgment normal. Vitals and nursing note reviewed. Exam conducted with a fusion juncture grinder present. Vitals: Estimated body mass index is 35.75 kg/m as calculated from the following: Height as of 07/01/24: 5' 8 . Weight as of this encounter: 235 lb 1.9 oz. BP: 120/70 Patient's last menstrual period was 07/23/2024. ASSESSMENT & PLAN ICD-10-CM 1. Well woman exam with routine gynecological exam Z01.419 Pap Smear HPV DNA probe, amplified Annual Exam: Patient presents today for an annual exam. Patient states she is doing well. Pap was obtained without difficulty. Patient is having some irregular periods. Patient is advised we will do an Ultrasound. Patient does want to discuss fertility and she was advised we will have her schedule a visit with for plan of care. Patient was advised and given paperwork for timed intercourse and to start Mucinex. Patient spouse has had cancer treatment and he has been off medication and he did have previoussperm analysis prior to the cancer. Patient does have a cystic lesion and she is following with PCPand Neurology and will order the ultrasound for ovarian cyst found on MRI. Patient is having right lowe lumbar pain, MRI not specific as to which side ovarian cyst is located. Patient would like to increase the metformin and we will order some wellness labs. Patient does have some double vision andshe has been seen by Pritesh for this. Orders Placed This Encounter Procedures HPV DNA probe, amplified Follow Up: Patient is to return in one year for annual unless needed otherwise. Documented by Poonam Cowan LPN on behalf of: AI Echols documented in this encounterMercy Hospital [id number] Miscellaneous Notes* Psychiatric Progress Note - CHRISTOPHER Chiu - 06/11/2024 11:52 AM EDT Received referral from external office in [place] to be seen for Anxiety. Called and left message for patient to call office back to schedule new patient appointment. Once patient returns call will also give information to [facility] as it appears patient lives in [place]. Patient can decide if she would like to come to [place] office for [place]. documented in this encounterC[facility]innati [facility]07-19-2024 Progress note* Psychiatric Progress Note - CHRISTOPHER Chiu - 06/11/2024 11:52 AM EDT Received referral from external office in [place] to be seen for Anxiety. Called and left message for patient to call office back to schedule new patient appointment. Once patient returns call will also give information to [facility] as it appears patient lives in [place]. Patient can decide if she would like to come to [place] office for [place]. [facility] CenterEvaluation + Plan note No data available for this section [facility] evaluation noteNo assessment information available [facility] Work Phone: Evaluation note* Diagnosis Irregular periods PCOS (polycystic ovarian syndrome) [...] specified counseling [facility]* Diagnosis Occipital neuralgia of right side- Primary Diplopia Dizziness Dizziness and giddiness Saddle anesthesia Disturbance of skin sensation Chronic bilateral low back pain without sciatica documented [facility] encounter [facility]* Diagnosis Well woman exam with routine gynecological exam Routine gynecological examination Irregular periods PCOS (polycystic ovarian syndrome) Polycystic ovaries documented in this [facility]* Diagnosis Right trigeminal neuralgia- Primary [facility]* Diagnosis Right trigeminal neuralgia documented [facility] this [facility]* Diagnosis Right trigeminal neuralgia documented in this [facility]* Diagnosis Right trigeminal neuralgia documented in this [facility]* Diagnosis Anxiety disorder, unspecified type- Primary documented in this encounter [facility]Eval[facility]* Diagnosis Mass of right breast, unspecified quadrant- Primary documented in this encounter [facility]* Diagnosis Right trigeminal neuralgia- Primary Trigeminal nerve disorder Trigeminal nerve disorder, unspecified Occipital neuralgia of right side documented in this encounter [facility]* Diagnosis Chronic migraine without aura, intractable, without status migrainosus- Primary Trigeminal nerve disorder Trigeminal nerve disorder, unspecified Occipital neuralgia of right side Chronic sinusitis, unspecified location documented in this encounter [facility]* Diagnosis Trigeminal nerve disorder- Primary Trigeminal nerve disorder, unspecified Chronic migraine without aura, intractable, without status migrainosus documented in this encounter [facility] note* Diagnosis Generalized anxiety disorder- Primary Anxiety disorder, unspecified type documented in this encounter [facility]* Diagnosis Trigeminal nerve disorder- Primary Trigeminal nerve disorder, unspecified Chronic migraine without aura, intractable, without status migrainosus [facility]* Diagnosis Chronic daily headache- Primary Headache Hemicrania continua Intractable chronic migraine without aura and without status migrainosus Chronic migraine without aura, with intractable migraine, so stated, without mention of status migrainosus Chronic migraine without aura, intractable, without status migrainosus Occipital neuralgia of right side Migraine without aura and without status migrainosus, not intractable Migraine without aura, without mention of intractable migraine without mention of status migrainosus Trigeminal nerve disorder Trigeminal nerve disorder, unspecified Right trigeminal neuralgia documented in this encounter [facility]* Diagnosis Well woman exam with routine gynecological exam Routine gynecological examination History of ovarian cyst Personal history of other genital system and obstetric disorders Pain in female genitalia on intercourse Dyspareunia Chronic right-sided low back pain, unspecified whether sciatica present documented in this encounter [facility] HealthcareHistory of Present illness Narrative* Sudheer Chacon MD - 09/17/2024 10:30 AM EDT Subjective Patient ID: Kierra Natarajan is a 33 y.o. female who presents for Sialoadenitis Pt reports one mo ago she started developing intermittent right facial numbness and tingling. Also getting intermittent double vision. Improved since starting tegratol and baclofen. Pt at [facility]. MRI ordered and awaiting scheduling. Pt had [...] Diagnosis Date ADHD (attention deficit hyperactivity disorder) ([facility] Depression ([facility]) Ear problems Head injury October 16 Infertility, female Migraine (CMS/HCC) 05/2024 PTSD (post-traumatic stress disorder) ([facility]) Past Surgical History: Procedure [...] suggests any ENT path documented in this encounter[facility] HealthcareH[facility] Discharge instructions No data available for this section [facility] InstructionsNot on filedocumented in this encounter [facility]ructionsNot on filedocumented in this encounter [facility]InstructionsNot on filedocumented in this encounter [facility] SystemInstructionsNot on filedocumented in this encounter [facility] SystemProgress note No data available for this section [facility] reason for referral (narrative)* Consultation (Routine) - Pending ReviewSpecialtyDiagnoses / ProceduresReferred By ContactReferred To Contacthavioral Health Diagnoses Anxiety disorder, unspecified type Ro Forte, [employer] [address] [phone] Referral IDStatusReasonStart DateExpiration DateVisits RequestedVisits [id number] Review Specialty Services Required / [facility] SystemReferny for referral (narrative)* SpecialtyDiagnoses / ProceduresReferred By ContactReferred To ContactPsychiatry [facility] [address] [address] Referral IDStatusReasonStart DateExpiration DateVisits RequestedVisits Authorized [facility] CenterReason for referral (narrative)No reason for referral information availableOhiohealth [facility]ville [facility] Work Phone: Reason for visit Narrative* Consultation (Routine) - Pending ReviewSpecialtyDiagnoses / ProceduresReferred By ContactReferred To ContactBehavioral Health Diagnoses Anxiety disorder, unspecified type Ro Forte, FIBERGLASS 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[employer] [address] [place] [address] Phone: tel: fax: [facility] [address] [place] [phone] Phone: tel: fax: Referral IDStatusReasonStspringboro DateExpiration DateVisits RequestedVisits [id number] Review Specialty Services Required / [facility] Summary Purpose Family History No [...] Advance Directives No June 08 1:55pm Date ActivatedDate InactivatedComments07/13/2019 12:51 AM07/13/2019 7:56 PMDate ActivatedDate InactivatedComments07/13/2019 12:51 AM07/13/2019 7:56 PM Chief Complaint and Reason for Visit Chief Complaint M54.81 M50.30 Chief Complaint M54.81 M50.30 r26.9 m54.50 g89.29 n39.498 r20.0 Chief Complaint Admit Date Cough, congestion September 14, 2025 9 :08am Reason for Referral SpecialtyDiagnoses / ProceduresReferred By ContactReferred To Contact Diagnoses Right trigeminal neuralgia Procedures PROVIDER ORDERED FOLLOW UP OFFICE/OUTPATIENT NEW HIGH MDM 60 MINUTES Giuliana, [place] [address] [place] [address] Referral IDStatusReasonStart DateExpiration DateVisits RequestedVisits [id number] PCP Requested Referral [id number] / ProceduresReferred By ContactReferred To ContactMR IMAGING Diagnoses Right trigeminal neuralgia Procedures MRA BRAIN WO IVCON MRA, HEAD W/[place] [address] [place] [address] [facility] [place] [address] Referral IDStatusReasonStart DateExpiration DateVisits RequestedVisits [id number] Auto-Generated Referral /[id number] / ProceduresReferred By ContactReferred To ContactMR IMAGING Diagnoses Right trigeminal neuralgia Procedures MRI BRAIN WO/W IVCON MRI BRAIN BRAIN STEM W/O W/[place] [address] [place] [address] [facility] [place] [address] Referral IDStatusReasonStart DateExpiration DateVisits RequestedVisits [id number] Auto-Generated Referral Additional Source Comments INFORMATION SOURCE (unrecogn ized section and content) DATE CREATED AUTHOR 03/09/2021 [facility] DATE CREATED AUTHOR AUTHOR'S ORGANIZ ATION 03/09/2023 [facility] DATE CREATED AUTHOR AUTHOR'S ORGANIZ ATION 06/08/2024 [facility] DATE CREATED AUTHOR AUTHOR'S ORGANIZ ATION 08/16/2024 [facility] DATE CREATED AUTHOR AUTHOR'S ORGANIZ ATION 10/03/2024 [facility] DATE CREATED AUTHOR AUTHOR'S ORGANIZ ATION 10/10/2024 [facility] DATE CREATED AUTHOR AUTHOR'S ORGANIZ ATION 05/16/2025 [facility] DATE CREATED AUTHOR AUTHOR'S ORGANIZ ATION 09/18/2025 [facility] DATE CREATED AUTHOR AUTHOR'S ORGANIZ ATION 09/27/2025 [facility] DATE CREATED AUTHOR AUTHOR'S ORGANIZ ATION 10/05/2025 [facility] [facility] Patient Care team informatio n (unrecognized section and content) Team Status: Active Member Role Status Dates NON STAFF Primary Care Provider Active Team Status: Inactive Member Role Status Dates INESSA Freedman-BC Attending Provider Active Start: June 25, 2024 End: June 25, 2024NON STAFFPrimary Care ProviderActiveStart: June 25, 2024 End: June 25, 2024 Team Status: Inactive Member Role Status Dates NON STAFF Primary Care Provider Active Start: August 10, 2024 End: August 10, 2024Fevon Forte NP-CAttending ProviderActive Start: August 10, 2024 End: August 10, 2024Team MemberRelationshipSpecialtyStart DateEnd Date Unallocated, Cong Chi MD [address] [place], [place] [address] [address] PCP - Generalmily Medicine08/17/24Team MemberRelationshipSpecialtyStart DateEnd Date Unallocated, Cong Chi MD [address] [place] [address] PCP - GeneralFamily Medicine08/17/24Team MemberRelationshipSpecialtyStart DateEnd Date Unallocated, Cong Chi MD [address] [place], [place] [address] [address] PCP - GeneralFamily Medicine08/17/24Team MemberRelationshipSpecialtyStart DateEnd Date Unallocated, Cong Chi MD [facility] [place] [address] PCP - Generalmily Medicine08/17/24Team MemberRelationshipSpecialtyStart DateEnd Date Unallocated, Cong Chi MD [address] [place], [place] [address] [address] PCP - GeneralFamily Medicine08/17/24Team MemberRelationshipSpecialtyStart DateEnd Date Unallocated, Noms MD Arti [facility] [place] [address] PCP - GeneralFamily Medicine08/17/24Team MemberRelationshipSpecialtyStart DateEnd Date Unallocated, Noms MD Arti [facility] [address] [facility] IN[facility] [place] [address] PCP - GeneralFamily Medicine08/17/24Team MemberRelationshipSpecialtyStart DateEnd Date Unallocated, Ilianas MD Arti [facility] [place] [address] [facility]24Team MemberRelationshipSpecialtyStart DateEnd Date Unallocated, Cong Chi MD [facility] [place] [address] [facility]08/17/24Team MemberRelationshipSpecialtyStart DateEnd Date Unallocated, Cong Chi MD [facility] [address] COUNT IN[facility] [place] [address] PCP - Generalmily Medicine08/17/24Team MemberRelationshipSpecialtyStart DateEnd Date Unallocated, Cong Chi MD [facility] [place] [address] PCP - GeneralFamily Medicine08/17/24Team MemberRelationshipSpecialtyStart DateEnd Date Unallocated, Cong Chi MD [facility] [place] [address] PCP - Generalmily Medicine08/17/24Team MemberRelationshipSpecialtyStart DateEnd Date Unallocated, Cong Chi MD [facility] [place] [place] [address] PCP - GeneralFamily Medicine08/17/24Team MemberRelationshipSpecialtyStart DateEnd Date Unallocated, Noms Provider, [address] [place] [address] PCP - GeneralFamily Medicine08/17/24Team MemberRelationshipSpecialtyStart DateEnd Date No Pcp, [place] [address] PCP - GeneralFamily Medicine05/31/24Team MemberRelationshipSpecialtyStart DateEnd Date No Pcp, [place] [address] PCP - GeneralFamily Medicine05/31/24Team MemberRelationshipSpecialtyStart DateEnd Date No Pcp, [place] [address] PCP - GeneralFamily Medicine05/31/24Team MemberRelationshipSpecialtyStart DateEnd Date Ro Forte, KALSOMINER [address], [address] [address] PCP - [employer]11/24/24Team MemberRelationshipSpecialtyStart DateEnd Date Ro Forte, PETER [address], [address] [address] PCP - [employer]11/24/24Team MemberRelationshipSpecialtyStart DateEnd Date Rohit Leos PA-C [address] [place] [address] PCP - GeneralFamily Medicine03/30/25Team MemberRelationshipSpecialtyStart DateEnd Date Rohit Leos PA-C [address], [address] [place] [address] PCP - GeneralFamily Medicine03/30/25Team MemberRelationshipSpecialtyStart DateEnd Date Rohit Leos PA-C [address] [facility], [address] [address] PCP - [facility] Medicine03/30/25Team MemberRelationshipSpecialtyStart DateEnd Date Rohit Leos PA-C [address] [facility], [address] [address] PCP - [facility] Medicine03/30/25 Team Status: Active Member Role/Relationship Status Dates NON STAFF Primary Care Provider Active Team Status: Inactive Member Role/Relationship Status Dates NON STAFF Primary Care Provider Active Start: September 14, 2025 End: September 14, 2025Pam Godinez ProviderActiveStart: September 14, 2025 End: September 14, 2025Team MemberRelationshipSpecialtyStart DateEnd Date Ro Forte, KALSOMINER PCP - [employer]11/24/24Team MemberRelationshipSpecialtyStart DateEnd Date Ro Forte, KALSOMINER PCP - [employer]11/24/24Team MemberRelationshipSpecialtyStart DateEnd Date Ro Forte, KALSOMINER PCP - [employer]11/24/24Team MemberRelationshipSpecialtyStart DateEnd Date Ro Forte, KALSOMINER PCP - [employer]11/24/24Team MemberRelationshipSpecialtyStart DateEnd Date Ro Forte, KALSOMINER PCP - [employer]11/24/24 Goals (unrecognized section and content) Goals may be documented in a n alternate section Reason for Visit (unrecogniz ed section and content) ReasonCommentsPT Progress NoteSpecialtyDiagnoses / ProceduresReferred By Contact Referred To ContactREHAB AND SPORTS THERAPY INS Diagnoses Chronic migraine without aura, intractable, without status migrainosus Trigeminal nerve disorder Procedures CONSULT TO PHYSICAL THERAPY PHYSICAL THERAPY EVALUATION HIGH COMPLEX 45 MINS Maggy Jacobo APRN.[employer] [address] [place] [address] Phone: tel: fax: [facility] [address] [place] [address] Referral IDStatusReasonStart DateExpiration DateVisits RequestedVisits [id number] Auto-Generated Referral [id number] up testingReasonCommentsSialoadenitis ReasonCommentsFacial PainMRI 09/27/24 NOMSReasonCommentsdiscuss lab resultsReason Research [facility]Well Women VisitReasonCommentsConsultSpecialtyDiagnoses / Procedures Referred By ContactReferred To ContactMR IMAGING Diagnoses Right trigeminal neuralgia Procedures MRI BRAIN WO/W IVCON MRI BRAIN BRAIN STEM W/O W/CONTRAST [place]zo [place] [id number] [place] [address] Mr Imaging [place] [address] Referral IDStatusReasonStart DateExpiration DateVisits RequestedVisits [id number] Auto-Generated Referral [id number] / ProceduresReferred By ContactReferred To ContactMR IMAGING Diagnoses Right trigeminal neuralgia Procedures MRA BRAIN WO IVCON MRA, HEAD W/O CONTRAST Vincenzo Mukherjee MD [address] [place] [address] Mr Imaging [place] [address] Referral IDStatusReasonStart DateExpiration DateVisits RequestedVisits [id number] Auto-Generated Referral [id number] PainMigraineTrigeminal Neuralgia SpecialtyDiagnoses / ProceduresReferred By ContactReferred To Contact Diagnoses Right trigeminal neuralgia Procedures PROVIDER ORDERED FOLLOW UP OFFICE/OUTPATIENT [facility] [address] [place] [address] [place] [address] Phone: tel: fax: Referral IDStatusReasonStart DateExpiration DateVisits RequestedVisits [id number] PCP Requested Referral easonOnset TjjbDlmnjjhxugwkwxhs06/19/2024easonComments Follow UpReasonCommentsFollow Upwooshing sound in ears, and head and nMigraine Trigeminal NeuralgiaReasonCommentsPhysical TherapyReasonCommentsNew Patient Trigeminal neuralgiaSpecialtyDiagnoses / ProceduresReferred By ContactReferred To ContactNeurology Diagnoses Trigeminal nerve disorder Procedures OFFICE/OUTPATIENT [facility] 60 MINUTES Maggy Jacobo APRN.[employer] [address] [place] [address] Phone: tel: fax: Referral IDStatusReasonStart DateExpiration DateVisits RequestedVisits [id number] PCP Requested Referral Source Comments (unrecognize d section and content) In the event this informatio n is protected by the Federal Confidentiality of Alcohol and Drug Abuse Patient Records regulations: The Federal rules restrict any use of the information to criminally investigate or prosecute any alcohol or drug abuse patient.[facility] HospitalIn the event this information is protected by the Federal Confidentiality of Alcohol and Drug Abuse Patient Records regulations: The Federal rules restrict any use of the information to criminally investigate or prosecute any alcohol or drug abuse patient.[facility] HospitalIn the event this information is protected by the Federal Confidentiality of Alcohol and Drug Abuse Patient Records regulations: The Federal rules restrict any use of the information to criminally investigate or prosecute any alcohol or drug abuse patient.[facility] HospitalIn the event this information is protected by the Federal Confidentiality of Alcohol and Drug Abuse Patient Records regulations: The Federal rules restrict any use of the information to criminally investigate or prosecute any alcohol or drug abuse patient.[facility] HospitalIn the event this information is protected by the Federal Confidentiality of Alcohol and Drug Abuse Patient Records regulations: The Federal rules restrict any use of the information to criminally investigate or prosecute any alcohol or drug abuse patient.[facility] HospitalIn the event this information is protected by the Federal Confidentiality of Alcohol and Drug Abuse Patient Records regulations: The Federal rules restrict any use of the information to criminally investigate or prosecute any alcohol or drug abuse patient.[facility] HospitalIn the event this information is protected by the Federal Confidentiality of Alcohol and Drug Abuse Patient Records regulations: The Federal rules restrict any use of the information to criminally investigate or prosecute any alcohol or drug abuse patient.[facility] HospitalIn the event this information is protected by the Federal Confidentiality of Alcohol and Drug Abuse Patient Records regulations: The Federal rules restrict any use of the information to criminally investigate or prosecute any alcohol or drug abuse patient.[facility] HospitalIn the event this information is protected by the Federal Confidentiality of Alcohol and Drug Abuse Patient Records regulations: The Federal rules restrict any use of the information to criminally investigate or prosecute any alcohol or drug abuse patient.[facility] HospitalIn the event this information is protected by the Federal Confidentiality of Alcohol and Drug Abuse Patient Records regulations: The Federal rules restrict any use of the information to criminally investigate or prosecute any alcohol or drug abuse patient.[facility] HospitalIn the event this information is protected by the Federal Confidentiality of Alcohol and Drug Abuse Patient Records regulations: The Federal rules restrict any use of the information to criminally investigate or prosecute any alcohol or drug abuse patient.[facility] FOR RECORDS PERTAINING TO PATIENTS WHO ARE [...] BE BASED ON THE PRIMARY CLINICAL RECORDS. [facility] [employer] [facility]. provides no warranty or guarantee of the accuracy or completeness of information in this document.
--- NOTE | 2025-10-19 08:06 | FL_ITS ---
The [address] [address] Patient Name: KIERRA HAIRSTON MRN: [id number] date: 1990 Sex: F Assigned Patient Location: [facility] Current Patient Location: [facility] Accession/Order Number: [id number] Exam Date: 10/19/2025 08:45 Report Date: 10/19/2025 09:20 At the request of: REMIGIO DORMAN DO Procedure: FL hysterosalpingography HYSTEROSALPINGOGRAM - 4 images CLINICAL DATA: Infertility COMPARISON: Ultrasound 08/24/2024 The procedure was performed by Dr. Dorman. After cannulization of the cervix, images of the pelvis were obtained during retrograde injection of approximately 20 cc of Omnipaque 240 into the uterus. The balloon on the catheter obscures the lower uterine segment. The remainder the uterine cavity appears to be within normal limits for size and contour. There is slight delay in opening of the right fallopian tube however does appear to be patent with spill of contrast into the peritoneal cavity. The left fallopian tube is never seen. Fluoroscopy time: 55 seconds FL/FL hysterosalpingography IMPRESSION: OCCLUDED LEFT FALLOPIAN TUBE. Impression dictated by: Myra Mariee M.D. 10/19/2025 9:20 AM Dictation Location: [place] [address] Electronically authenticated by: [id number] Y Date: 10/19/2025 09:20
[2025-10-19 10:03] VITALS: BMI 38.4
--- NOTE | 2025-10-19 10:35 | SUR.PREOP ---
10/18/25 Discussed with patient procedure,date, time, and prep.
--- NOTE | 2025-10-19 10:37 | PC.NURSE ---
10/19/25 0910 Pt denies any severe abdominal pain. Just states that its mild cramping and only has small amount of red bloody drainage when wiping.
== END 2025-10-19 09:10 | disposition home or self-care (01) ==
LOC: FL 07:54
PROVIDERS: Visit Provider Obstetrics & Gynecology
DX: N97.9 Female infertility, unspecified (principal); N93.9 Abnormal uterine and vaginal bleeding, unspecified; N92.6 Irregular menstruation, unspecified; N83.9 Noninflammatory disorder of ovary, fallopian tube and broad ligament, unspecified
CPT/HCPCS: 36415; 58340; 74740; 84702; Q9966

== ENCOUNTER 2025-10-24 08:19 | Outpatient (OUT) | payer BC, SELFPAY ==
--- OUTSIDE RECORDS SUMMARY | 2024-10-15 04:00 | XMS_ITS ---
Author Organization [facility] Address [address] [place] [address] Care Team Providers Care Corporate Auditor Name Role Phone Rohit Herron PA-C Primary Care Provider Maggy Melchor [phone] REASON FOR VISIT New PT Onc Encounters Encounter Location Date Provider Diagnosis [address] [place] [address] 10/15/2024 Maggy Colorado Plan Of Treatment No Information Progress Notes * Eloisa NATARAJAN LDOB: [birth year] (35 yo F)Acc No.[id number]:10/15/2024 UNLOCKED PROGRESS NOTE Progress Notes Patient: Eloisa ALLISON :?Maggy Colorado MDDOB:1990???Age:33 Y ???Sex:FemaleDate:4Phone:[phone]:[address] [address], [facility]ITALQP-[id number]:Rohit Herron PA-C Subjective: * Chief Complaints: * 1 . New PT Onc. * Medical History: Objective: * Vitals: Assessment: Plan: * Treatment: * * Electronic signature of Maggy Colorado MD, [id number] on 10/24/2025 at 08:24 AM ESTSign off status: PendingVisit Status:?CONFPHONE (Voice) * Provider: Ady [place] MD Date: 12/15/2023 Generated for Printing/Faxing/eTransmitting on:?10/24/2025 08:24 AM EST
--- OUTSIDE RECORDS SUMMARY | 2024-11-09 09:00 | XMS_ITS ---
Author Organization The [facility] in [place] Address [address] [place] [address] Care Team Providers Care Master Tax Advisor Name Role Phone Rohit Herron PA-C Primary Care Provider Flores Ybarra [phone] REASON FOR VISIT MD Calzada PT Onc Encounters Encounter Location Date Provider Diagnosis [facility] Oncology [address] [place] [phone] 11/09/2024 Flores Braun Plan Of Treatment No Information Progress Notes * Eloisa NATARAJAN LDOB: 9 (35 yo F)Acc No.[id number]:11/09/2024 UNLOCKED PROGRESS NOTE Progress Notes Patient: Eloisa ALLISON :?Flores Braun M.D.:1990???Age:34 Y ???Sex:FemaleDate:4Phone:[phone]:[address] [place] [address], [facility]ENTERXA-[id number]:Rohit Herron PA-C Subjective: * Chief Complaints: * 1 . New PT Onc. * Medical History: Objective: * Vitals: Assessment: Plan: * Treatment: * * Electronic signature of Flores Braun MD, [id number] on 10/24/2025 at 08:24 AM ESTSign off status: PendingVisit Status:?CANC (Cancelled) * Provider: Farhan Braun M.D. Date: 01/10/2024 Generated for Printing/Faxing/eTransmitting on:?10/24/2025 08:24 AM EST
--- OUTSIDE RECORDS SUMMARY | 2024-11-30 09:30 | XMS_ITS ---
Author Organization The [facility] in [place] Address [address] [place] [address] Care Team Providers Care Paleontology Teacher Name Role Phone Rohit Herron PA-C Primary Care Provider Flores Ybarra [phone] REASON FOR VISIT MD Calzada PT Hem Encounters Encounter Location Date Provider Diagnosis [facility] Oncology [address] [place] [phone] 11/30/2024 Flores Braun Plan Of Treatment No Information Progress Notes * Eloisa NATARAJAN LDOB: [birth year] (35 yo F)Acc No.[id number]:11/30/2024 UNLOCKED PROGRESS NOTE Progress Notes Patient: Eloisa ALLISON :?Flores Braun M.D.:1990???Age:34 Y ???Sex:FemaleDate:11/30/2024Phone:[phone]:[address] [place] [address], [facility]ENTERLL-[id number]:Rohit Herron PA-C Subjective: * Chief Complaints: * 1 . New PT Hem. * Medical History: Objective: * Vitals: Assessment: Plan: * Treatment: * * Electronic signature of Flores Braun MD, [id number] on 10/24/2025 at 08:24 AM ESTSign off status: PendingVisit Status:?CANC (Cancelled) * Provider: Farhan Braun M.D. Date: 0 11/30/2024 Generated for Printing/Faxing/eTransmitting on:?10/24/2025 08:24 AM EST
--- OUTSIDE RECORDS SUMMARY | 2025-10-24 08:24 | XMS_ITS | Encounter Summary ---
Author Organization [facility] Address [address] [place] [address] Care Team Providers Care Cloud Infrastructure Architect Name Role Phone AlexBeronica bello TREE PULLER Unavailable [phone] Encounter Details DateTypeDepartmentCare Team (Latest Contact Info)Xvcbdhvqptu22/21/2025Orders Only YUN VALLEJO [address] [place] [address] [place] [id number] Cindy Biswas MA Social History Tobacco UseTypesPacks/DayYears [...] occasion?Never04/28/2024CommentsNoSex and Gender InformationValueDate RecordedSex Assigned at FnzagPsqvxo27/28/2023 6:05 PM EDT Legal DckFmobkv04/04/2023 12:16 PM EDTGender UqxybjrgPddduh93/28/2023 6:05 PM EDTSexual BldzeimvblrTqlypupc80/28/2023 6:05 PM EDTdocumented as of this encounter Plan of Treatment DateTypeDepartmentCare Team (Latest Contact Info)Taypdzzudwh68/31/2026 9:30 AM EDTOffice Visit [facility] [address] [place] [address] Regina Frost MD [address] [place] [address] documented as of this encounter Procedures Procedure NamePriorityDate/TimeAssociated DiagnosisCommentsHPV/PAP COTEST, QPUBAFRERmdypgi39/06/2025 12:00 AM ESTdocumented in this encounter Results * HPV/PAP COTEST, EXTERNAL (09/29/2025 12:00 AM EST) Narrative Authorizing ProviderResult TypeResult StatusAmy Marly [facility] ORDERABLES Final ResultPerforming OrganizationAddressCity/State/ZIP CodePhone Number EXTERNAL LAB documented in this encounter Visit Diagnoses Not on filedocumented in this encounter Care Teams Team MemberRelationshipSpecialtyStart DateEnd Date Beronica Forte NP PCP Val Barton11/24/24documented as of this encounter
--- OUTSIDE RECORDS SUMMARY | 2025-10-24 08:24 | XMS_ITS | Clinical Summary ---
Author Organization [employer] [facility] tem Address [id number] [place] [address] Care Team Providers Care General Superintendent Name Role Phone No Pcp, No Pcp [...] tablet 5Active Active Problems ProblemNoted DateDiagnosed DateDepressive dibxmuhl04/20/2019Endometriosis 06/04/2016Exposure to sexually transmitted disease (STD)06/04/2016 Overview (08/24/2018): problem replaced by 2018 ICD 02 September Update Papanicolaou smear for cervical cancer atxwuacio33/12/2016 Encounters DateTypeDepartmentCare VqbmMgioseravzj83/20/2025Telephone [facility] [address] [place] [phone] Earlene Oneill CMA from Last 3 Months Family History Medical HistoryRelationNameCommentsHyperlipidemiaFatherHypertensionFatherRheum arthritisMaternal GrandmotherOvarian cancerMaternal great-grandmother HyperlipidemiaMotherHypertensionMotherRheum arthritisMotherCervical cancer Paternal GrandmotherRelationNameStatusCommentsFatherAliveMaternal Grandmother AliveMaternal great-grandmotherAliveMotherAlivePaternal Grandmother Social History Tobacco UseTypesPacks/DayYears UsedDateSmoking Tobacco: Every WiyPhcogflgic66.8 Started: 12/25/2016Smokeless Tobacco: Never Tobacco Cessation:Counseling Given: Yes Alcohol UseStandard Drinks/WeekCommentsYes0 (1 standard drink = 0.6 oz pure alcohol)rarePHQ-2AnswerDate RecordedTotal Aqhpj404/21/2025ChildcareAnswerDate WmxacygnGckvbqwlhEklktwv48/11/2019EmploymentAnswerDate RecordedEmploymentUnknown 05/04/2019Purpose - LifeAnswerDate RecordedPurpose and direction in lifeUnknown 1CommentsNoSex and Gender InformationValueDate RecordedSex Assigned at WvrncVwnvxl13/19/2022 7:31 PM EDTLegal RqsRfjbkp54/04/2015 9:30 PM EDTGender HhtsvrylKmiroy35/19/2022 7:31 PM EDTSexual OrientationStraight 07/12/2022 7:31 PM EDT Last Filed Vital Signs Vital SignReadingTime TakenCommentsBlood Vberpuel589/7009 3:23 PM EDT Zcems125908/12/2022 3:23 PM GQXLolxugtrmps63.7 ??C (98.1 ??F)08/12/2022 1:14 PM EDTRespiratory Nndl007308/12/2022 3:23 PM EDTOxygen Cthvgvdpry661%08/12/2022 3:23 PM EDTInhaled Oxygen Concentration--Vtptqb968.1 kg (256 lb)07/23/2022 10:29 AM XMXMtgjvc232.3 cm (5' 9 )07/23/2022 10:29 AM EDTBody Mass Index37.808/ 10:29 AM EDT Plan of Treatment Health MaintenanceDue DateLast DoneCommentsDTaP,Tdap and Td Vaccines (6 - Tdap) , 03/30/1991, 09/11/1990, Additional history existsTobacco Wyuygdjur96/29/2001Adult BMI Ylroxcmrh65/29/2007COVID-19 Vaccine ( season)/, 02/17/2021Influenza Jwyamng76/12/2012, 08/06/2012, 08/13/2011, Additional history existsDepression Tyrbhbzxu97/21/2026 05/14/2025Pap Smear, 07/01/2022, 07/01/2022 Medical Devices Not on file Procedures Procedure NamePriorityDate/TimeAssociated DiagnosisCommentsHIGH RISK HPV W/WILLIAM Sissrhg5407/01/2022 5:01 AM EDT from Last 3 Months or Most Recently Relevant to Health Maintenance Results * High risk HPV w/william (07/01/2022 5:01 AM EDT)ComponentValueRef RangeTest MethodAnalysis TimePerformed AtPathologist SignatureHpv specimen typeThinPrep 07/03/2022 5:02 AM EDTSUNQUESTHpv 16NegativeNegative^Anxbsteb80/11/2022 1:[address] [facility] LABHpv 18NegativeNegative^Jhfzphal30/11/2022 1:[address] [facility] LABOther high risk hpvNegative Negative^Fdyxohxp05/11/2022 1:[address] [facility] LABComment: HPV types 31,33,35,39,45,52,56,58,59,66 and 68 DNA were undetectable. Specimen (Source)Anatomical Location / LateralityCollection Method / Volume Collection TimeReceived SsytXEJQL64/08/2022 5:01 AM EDT07/02/2022 5:01 AM EDT Narrative Authorizing ProviderResult TypeResult StatusCochristelle BROWN BLOOD ORDERABLESFinal ResultPerforming OrganizationAddressCity/State/ZIP CodePhone Number [facility] [address] [place] [address] from Last 3 Months or Most Recently Relevant to Health Maintenance Insurance * Guarantor: Eloisa Natarajan TypeRelation to PatientDate of PhoneBilling AddressThird Libertarian [id number] [address] [place] [phone] Advance Directives * Full Code (Latest Code Status on File) Date ActivatedDate InactivatedComments07/13/2019 12:51 AM07/13/2019 7:56 PM Care Teams Team MemberRelationshipSpecialtyStart DateEnd Date No Pcp, [place] [address] PCP - GeneralFamily Medicine05/31/24
--- OUTSIDE RECORDS SUMMARY | 2025-10-24 08:24 | XMS_ITS | Patient Health Record ---
Author Organization [facility] [place] Address [address] [place] [address] Care Team Providers Care Card Reader Name Role Phone Rohit Herron PA-C Primary Care Provider UnavailFlores Lin Unavailable [phone] Reason For Referral No Information Plan Of Treatment No Information Insurance Providers Payer Name Payer Address Payer Phone Subscriber Number Group Number Insured Name Patient Relationship to Insured Coverage Start Date Coverage End Date [employer] ACCESS PPO PLUS LOCAL PLAN [address] [place] [address] [id number] Neville Natarajan Spouse - patient is the spouse of the insured 4
--- OUTSIDE RECORDS SUMMARY | 2025-10-24 08:24 | XMS_ITS | Clinical Summary ---
Author Organization [facility] Address [address] [place] [address] Care Team Providers Care Credit Verification Clerk Name Role Phone Rohit Herron PA-C Primary Care Provider [phone] Allergies Active AllergyReactionsCriticalityNoted DateCommentsDextromethorphan-Guaifenesin Hldxgcu2704/10/2023 Medications MedicationSigDispense QuantityRefillsLast FilledStart DateEnd DateStatus carBAMazepine [...] TO AFFECTED AREA ONCE DAILY NEEDED FOR DIDHYK8406/06/2024 Active cyclobenzaprine (Flexeril) 5 mg tablet Take [...] capsule Discontinued Active Problems ProblemNoted DateDiagnosed DateNight pewadtj2207/17/2025Vitamin D deficiency 07/17/2025Hemicrania igniavpn52/24/5156Kevmifhjssgwcs26/24/2025llergic rhinitis 07/17/2025ADHD112/29/2023Infertility, wunaih3110/28/2024Trigeminal neuralgia of right side of face09/01/2024 Overview (10/28/2024): Right side only, primarily lower face, numbness, dull ache, sometimes extreme pain in teeth and burning. Chronic bilateral low back pain without wtvwymxp02/24/3886Ldziigvs80/24/2024 Nftrwopcy29/24/2024Saddle gtaydtbgdq02/24/2024Occipital neuralgia of right side 07/01/20242775Slsgqzh33/05/2024Neurologic gait /05/2024Lipoma of thigh 02/01/2022igarette nlupfx1102/01/2022besity with body mass index 30 or greater 02/01/2022Ventricular premature beats02/27/2021remature atrial contraction 02/27/2021Intermittent guajmjcywzre15/06/2021High-density lipoprotein deficiency 02/27/2021Generalized anxiety qcsevpbr72/06/2021Mass of soft tissue of left lower swlqvloie49/06/2021epressive /20/2019Papanicolaou smear for cervical cancer /12/2016Exposure to sexually transmitted disease (STD)06/04/2016 Overview (04/17/2023): problem replaced by 2018 ICD 02 September Update Svxirqjihdtna70/12/2016 Encounters DateTypeDepartmentCare TfurXmglrizctqq62/16/2025[facility] [address] [facility] [address] [place] [address] Rohit Herron PA-C Hemicrania emrdtyjl27/05/2025[facility] [address] [facility] [address] [place] [address] Rohit Herron PA-C Anxietyfrom Last 3 Months [...] friends or relatives?Never05/31/2025How often do you attend amish or taoism services?Never05/31/2025Do you belong to any clubs or organizations such as amish groups, unions, fraternal or athletic groups, or school groups?No 05/31/2025How often do you attend meetings of the clubs or organizations you belong to?Never05/31/2025re you , , , , never , or living with a partner?Pisftgq4805/31/2025UDIT-CAnswerDate RecordedQ1: How often do you have a [...] care, and heating?Somewhat hard05/31/2025PHQ-2AnswerDate RecordedPatient Health Questionnaire-2 Xqlzs161[facility] [place] [facility] - Occupational Stress QuestionnaireAnswerDate [...] 05/31/2025CommentsNoSex and Gender InformationValueDate RecordedSex Assigned at XjaddHhzrya31/04/2024 6:27 AM ESTLegal DjvEdwukn39/30/2022 12:34 AM EDTGender GgqozamoXjsfgc27/08/2025 9:50 AM EDTSexual OrientationHeterosexual or Ajrwerir52/04/2024 6:27 AM EST Last Filed Vital Signs Vital SignReadingTime TakenCommentsBlood Vitkvpjc436/8707/14/2025 8:49 AM EDT Fktya490807/14/2025 8:49 AM MKJMudqadqatra40.9 ??C (98.5 ??F)09/26/2024 6:54 AM ESTRespiratory Awle908111/26/2023 7:40 AM ESTOxygen Yhmcfgqlxj308%07/14/2025 8:49 AM EDTInhaled Oxygen Concentration--Algkii655 kg (252 lb)07/14/2025 8:49 AM EDT Fslfud624.3 cm (5' 9 )07/14/2025 8:49 AM EDTBody Mass Index37.21007/14/2025 8:49 AM EDT Plan of Treatment Health MaintenanceDue DateLast DoneCommentsVaricella Vaccines (1 of 2 - 13+ 2- dose series)2002Hepatitis B Vaccines (1 of 3 - 19+ 3-dose series) 2008dult Bcgwhms5110/22/2011HPV Vaccines (1 - 3-dose SCDM series)2016 HPV/Cfhusc2410/22/2019COVID-19 Vaccine (1 - season)2025Influenza Vaccine (#1)2025Depression Udusqdllu38/21/044138/ervical Cancer Exlwrwalh10/26/2027Pap Smear/, 07/22/2022Zoster Vaccines (1 of 2)2039HIB VaccinesAged OutNo [...] patient's age to complete this topic Insurance Care Teams Team MemberRelationshipSpecialtyStart DateEnd Date Rohit Herron PA-C [facility] [address] [address] [facility] Crgabipd98/8/24
--- OUTSIDE RECORDS SUMMARY | 2025-10-24 08:24 | XMS_ITS | Clinical Summary ---
Author Organization [facility] Address [address] [place] [address] [place] [address] Care Team Providers Care Utility Porter Name Role Phone Beronica Forte RESTAURANT HOSTESS Unavailable Allergies Active AllergyReactionsCriticalityNoted DateCommentsDextromethorphan-Guaifenesin 04/10/2023 Loopy Medications MedicationSigDispense QuantityRefillsLast FilledStart DateEnd DateStatus hydrOXYzine HCl (Atarax) 10 MG tablet Take 50 mg by mouth 3 (three) times a day as nybbaf5407/21/2009ctive metFORMIN XR (Glucophage-XR) 500 MG 24 hr [...] DAILY NEEDED FOR FACIAL PAIN MAY CAUSE CIMWWNDDLD14/06/2025Discontinued rizatriptan (Maxalt) 10 MG tablet TAKE 1 TABLET BY MOUTH ONCE DAILY A 1 TIME DOSE, IF NEEDED FOR MIGRAINE. MAY REPEAT IN 2 HOURS IF UNRESOLVED. DO NOT EXCEED 30MG IN 24 HOURS.09/29/2025 Discontinued letrozole (Femara) 2.5 MG chemo tablet Indications:Female infertility,Abnormal uterine bleeding (AUB),Irregular periods Take 1 tablet (2.5 mg total) by mouth Daily for 5 days. 5 tablet Expired Active Problems ProblemNoted DateDiagnosed GnmmWaiswzym87/24/4451Ozixdqvge58/24/2024Saddle tluuakwxlh79/24/2024Chronic bilateral low back pain without /24/2024 Occipital neuralgia of right side07/01/2024Neurologic gait dwsoyzutkic02/05/2024 Ajlzzxs4404/28/2024 Encounters DateTypeDepartmentCare IlfdCsgfjfpixcg77/26/2025Clinisync Result Encounter [facility] External Department Unsolicited Remigio Real, DO 10/19/2025linisync Result Encounter [facility] External Department Unsolicited Remigio Real, DO 10/14/2025Orders Only [facility] [address] [place] [address] [place] [address] Cindy Biswas MA 10/04/2025 10:30 AM ESTConsult [facility] [address] [place] [phone] Remigio Real, Pre-op evaluation; Pelvic pain in qvpnpz3010/04/2025Telephone [facility] [address] [facility] [place] [address] Bamib Hernandez LPN 10/04/2025amboo flowsheet [facility] [address] [facility] [place] [address] Remigio Rela DO 10/03/20256307Onvjcg75/06/2025 11:00 AM ESTProcedure Visit [facility] [address] [facility] [place] [address] Barb Luke PA Well woman exam with routine gynecological exam; History of ovarian cyst; Pain in female genitalia on intercourse; Chronic right-sided low back pain, unspecified whether sciatica present 09/29/2025linisync Result Encounter [facility] External Department Unsolicited Barb Luke PA 09/29/2025amboo flowsheet [facility] [address] [facility] [place] [address] Barb Luke PA 09/27/2025Travelfrom Last 3 Months [...] CommentsNoSex and Gender InformationValueDate RecordedSex Assigned at Fgsxie3007/21/2023 6:05 PM EDTLegal FlxMysenu18/04/2023 12:16 PM EDTGender YqigfmleIdzxll33/28/2023 6:05 PM EDTSexual LbftvgzljusOomutoln44/28/2023 6:05 PM EDT Last Filed Vital Signs Vital SignReadingTime TakenCommentsBlood Xidiwlpc631/7410/04/2025 10:43 AM EST Wailx042209/13/2024 1:39 PM EDTTemperature--Respiratory Rate--Oxygen Oeadkdivrc25% 04/29/2024 10:03 AM EDTInhaled Oxygen Concentration--Geagjv451 kg (257 lb) 10/04/2025 10:43 AM AHESfizwz538.3 cm (5' 9 )10/04/2025 10:43 AM ESTBody Mass Index37.9510/04/2025 10:43 AM EST Plan of Treatment DateTypeDepartmentCare Team (Latest Contact Info)Smooqzrhxxt64/31/2026 9:30 AM EDTOffice Visit [facility] [address] [place] [address] Regina Frost MD [address] [place] [address] Health MaintenanceDue DateLast DoneCommentsCOVID-19 Vaccine ( - 2024- season) 2025Influenza Vaccine (#1)2025Pap Smear7008/19/2024, 07/22/2022, 2Cervical Cancer Feqejiakg82/28/2028HPV/Ylbexj8508/21/2028 3Pneumococcal Vaccine: Pediatrics (0 to 5 Years) and At-Risk Patients (6 to 64 Years)Aged OutNo longer eligible based on patient's age to complete this topic Procedures Procedure NamePriorityDate/TimeAssociated DiagnosisCommentsFL WIQMANVMJHBYEZEKMLNUZ36/26/2025 9:20 AM EST [facility] PREG QUANT BCFTwliqcv95/26/2025 8:03 AM EST IGP,APTIMA HPV,AGE EGQUGwbvkpw38/06/2025 10:52 AM EST HPV/PAP COTEST, QMROZEWUXkrjxjh28/06/2025 12:00 AM ESTPAP HIZHFEfnhztw77/26/2024 12:00 AM EDTTHINPREP PAP AND HPV MRNA E6/E7 W/RFL HPV 16,18/49Pkavpss81/28/2023 10:44 AM EDT Well woman exam with routine gynecological exam from Last 3 Months or Most Recently Relevant to Health Maintenance Results * FL HYSTEROSALPINGOGRAPHY (10/19/2025 9:20 AM EST)Anatomical RegionLaterality ModalityOtherSpecimen (Source)Anatomical Location / LateralityCollection Method / VolumeCollection TimeReceived Time10/19/2025 9:20 AM EST Narrative 10/19/2025 9:22 AM EST [facility] ?[address] ? [place] [address] ? Fluoroscopy Report ? Signed ? Patient: KIERRA NATARAJAN ?MR#: [id number] ?? : 1990 ?Acct:[id number] ?? Age/Sex: 34 / F ?ADM Date: 10/19/25 ?? Loc: [place] ? Attending Dr: Remigio Real D.O. ? Ordering Physician: Remigio Real D.O. ?? Date of Service: 10/19/25 ?? Procedure(s): FL hysterosalpingography ?? Accession Number(s): [id number] ? cc: Remigio Real D.O.; Physician,Non-Staff M.D. ? [facility] ? [address] ? [place] [address] ? Patient Name: ?? KIERRA NATARAJAN ? MRN: [facility]:[id number] ? date: 1990 ?Sex: F ?? Assigned Patient Location: [facility] ?? Current Patient Location: [facility] ?? Accession/Order Number: [id number] ?? Exam Date: 10/19/2025 ??08:45 ?Report Date: 10/19/2025 ??09:20 ? At the request of: ?? REMIGIO ??ADDIE ??DO ? Procedure: ??FL hysterosalpingography ? HYSTEROSALPINGOGRAM - 4 images ? CLINICAL DATA: Infertility ? COMPARISON: Ultrasound 08/24/2024 ? The procedure was performed by Dr. Real. ??After cannulization of the cervix, ?? images of the pelvis were obtained during retrograde injection of ?? approximately 20 cc of Omnipaque 240 into the uterus. ??The balloon on the ?? catheter obscures the lower uterine segment. ??The remainder the uterine cavity ?? appears to be within normal limits for size and contour. ??There is slight ?? delay in opening of the right fallopian tube however does appear to be patent ?? with spill of contrast into the peritoneal cavity. ??The left fallopian tube is ?? never seen. ? Fluoroscopy time: 55 seconds ? FL/FL hysterosalpingography ?? IMPRESSION: ? OCCLUDED LEFT FALLOPIAN TUBE. ? Impression dictated by: Myra Mariee M.D. ??10/19/2025 9:20 AM ? Dictation Location: [place] [address] ? Electronically authenticated by: [id number] ??Y ?? Date: 10/19/2025 ??09:20 ? Dictated By: ?Myra Mariee M.D. ? Signed By: ?10/19/25 0922 ? DD/ 0920 ? TD/TT: ? Drainman: Procedure Note Radiology, Radiologist, - 10/19/2025 [place] [address] Fluoroscopy Report Signed Patient: KIERRA NATARAJAN R#: [id number] : 1990Acct:[id number] Age/Sex: 34 / FADM Date: 10/19/25 Loc: [place] Attending Dr: Remigio Real D.O. Ordering Physician: Remigio Real D.O. Date of Service: 10/19/25 Procedure(s): FL hysterosalpingography Accession Number(s): [id number] cc: Remigio Real D.O.; Physician,Non-Staff Alexi The [place] [address] Patient Name: KIERRA NATARAJAN MRN: [facility]:[id number] date: 1990 Sex: F Assigned Patient Location: [facility] Current Patient Location: [facility] Accession/Order Number: [id number] Exam Date: 10/19/2025 08:45 Report Date: 10/19/2025 09:20 At the request of: REMIGIO REAL DO Procedure: FL hysterosalpingography HYSTEROSALPINGOGRAM - 4 images CLINICAL DATA: Infertility COMPARISON: Ultrasound 08/24/2024 The procedure was performed by Dr. Real. After cannulization of thecervix, images of the pelvis were obtained during retrograde injection of approximately 20 cc of Omnipaque 240 into the uterus. The balloon on the catheter obscures the lower uterine segment. The remainder the uterinecavity appears to be within normal limits for size and contour. There is slight delay in opening of the right fallopian tube however does appear to bepatent with spill of contrast into the peritoneal cavity. The left fallopiantube is never seen. Fluoroscopy time: 55 seconds FL/FL hysterosalpingography IMPRESSION: OCCLUDED LEFT FALLOPIAN TUBE. Impression dictated by: Myra Mariee M.D. 10/19/2025 9:20 AM Dictation Location: [place] [address] Electronically authenticated by: [id number] Y Date: 509:20 Dictated By: Myra Mariee M.D. Signed By:10/19/25921 DD/ 9 TD/TT: Drainman: Authorizing ProviderResult TypeResult StatusCorey Addie DOCLINISYNC IMAGINGFinal Result * [facility] PREG QUANT HCG (10/19/2025 8:03 AM EST)ComponentValueRef RangeTest Method Analysis TimePerformed AtPathologist SignatureHCG QUANTITATIVE<1mIU/mLTBH Comment: 5-50 ? 0.2-1 WEEK 50-500 ? 1-2 WEEKS 100-5,000 ?2-3 WEEKS 500-10,000 ? 3-4 WEEKS 1,000-50,000 ?? 4-5 WEEKS 10,000-100,000 5-6 WEEKS 15,000-200,000 6-8 WEEKS 10,000-100,000 2-3 MONTHS Specimen (Source)Anatomical Location / LateralityCollection Method / Volume Collection TimeReceived Time10/19/2025 8:03 AM EST10/19/2025 8:04 AM EST Narrative CLINISYNC - 10/19/2025 8:33 AM EST Authorizing ProviderResult TypeResult StatusCorey Addie DOCLINISYNCFinal Result Performing OrganizationAddressCity/State/ZIP CodePhone Number CLINISYNC [facility] * IGP,APTIMA HPV,AGE GDLN (09/29/2025 10:52 AM [...] at: 01 =G ?[facility] ?? [address] [place] ??[phone] ?? Kiesha [place] MD, IGP, APTIMA HPV, RFX 16/18,45Note.TBHComment: ?? TESTS ? RESULT ??FLAG ??UNITS ?REF RANGE ??LAB DIAGNOSIS: ?02 ?? NEGATIVE FOR INTRAEPITHELIAL LESION OR MALIGNANCY. Specimen adequacy: ?02 ?? Satisfactory for evaluation. ??Endocervical and/or squamous metaplastic ?? cells (endocervical component) are present. Performed by: ? 02 ?? [facility] Preparator (ASCP) . ? 02 Note: ? Note [...] pap test was interpreted ?? using the Parametric Sound(R) [employer] Solar Energy(TM) Cervical Algorithm whole ?? slide imaging system. HPV Genotype Reflex ?? Note ?02 ?? Criteria not met, HPV Genotype not performed. ?FLAG LEGEND: ?L-Low Normal,H-High Normal,LL-Alert Low,HH-Alert High <-Panic Low,>-Panic High,A-Abnormal,AA-Critical Abnormal Performed at: 02 WB ?[facility] ?? [address] [place] ??[phone] ?? Kiesha [place] MD, HPV APTIMANegativeNegativeTBHComment: This nucleic acid amplification test detects fourteen high- risk HPV types (16,18,31,33,35,39,45,51,52,56,58,59,66,68) without differentiation. Performed at: ??=G - [facility] [address] [place], [place] ??[phone] Ceiling Installer: Kiesha [place] MD, Phone: ??[phone] Performed at: ??WB - [facility] [address] [place], [place] ??[phone] Ceiling Installer: Kiesha [place] MD, Phone: ??[phone] Specimen (Source)Anatomical Location / LateralityCollection Method / Volume Collection TimeReceived Time09/29/2025 10:52 AM EST09/29/2025 2:52 PM EST Narrative CLINISYNC - 10/03/2025 2:08 PM EST BRUSH-SPATULA CERVIX ENDOCERVIX Authorizing ProviderResult TypeResult StatusAmy Marly PALAB BLOOD ORDERABLES Final ResultPerforming OrganizationAddressCity/State/ZIP CodePhone Number CLINISYNC [facility] * HPV/PAP COTEST, EXTERNAL (09/29/2025 12:00 AM EST) Narrative Authorizing ProviderResult TypeResult StatusAmy Marly PALAB CYTOLOGY ORDERABLES Final ResultPerforming OrganizationAddressCity/State/ZIP CodePhone [...]
--- OUTSIDE RECORDS SUMMARY | 2025-10-24 08:24 | XMS_ITS | Encounter Summary ---
Author Organization [facility] Address [address] [place] [address] Care Team Providers Care Ship'S Carpenter Name Role Phone AlexBeronica bello CLOUD ENGINEER Unavailable [phone] Encounter Details DateTypeDepartmentCare Team (Latest Contact Info)Ijfblutgykr00/26/2025Clinisync Result Encounter [facility] External Department Unsolicited Jeremy Real, DO [address] [place] [address] Social History Tobacco UseTypesPacks/DayYears UsedDateSmoking Tobacco: FormerCigarettes1.515.9 [...] occasion?Never04/28/2024CommentsNoSex and Gender InformationValueDate RecordedSex Assigned at ZpinhFcliso63/28/2023 6:05 PM EDT Legal HjxSttuxc35/04/2023 12:16 PM EDTGender IwhssxmpZysesj58/28/2023 6:05 PM EDTSexual RcfvogkabcoKaifufhp18/28/2023 6:05 PM EDTdocumented as of this encounter Plan of Treatment DateTypeDepartmentCare Team (Latest Contact Info)Ksphytachfz21/31/2026 9:30 AM EDTOffice Visit [facility] [address] [place] [address] Regina Frost MD [address] [place] [address] documented as of this encounter Procedures Procedure NamePriorityDate/TimeAssociated DiagnosisCommentsTBH PREG QUANT HCG Cctwbud9210/19/2025 8:03 AM EST documented in this encounter Results * [facility] PREG QUANT HCG (10/19/2025 8:03 [...] Result Performing OrganizationAddressCity/State/ZIP CodePhone Number CLINISYNC [facility] documented in this encounter Visit Diagnoses Not on filedocumented in this encounter Care Teams Team MemberRelationshipSpecialtyStart DateEnd Date Beronica Forte NP PCP - Elsa Commercial11/24/24documented as of this encounter
--- OUTSIDE RECORDS SUMMARY | 2025-10-24 08:24 | XMS_ITS | Encounter Summary ---
Author Organization [facility] Address [address] [place] [address] Care Team Providers Care Food Truck Caterer Name Role Phone AlexBeronica bello PULVERIZER Unavailable [phone] Encounter Details DateTypeDepartmentCare Team (Latest Contact Info)Rtbjwcnlytm31/26/2025Clinisync Result Encounter [facility] External Department Unsolicited Remigio Real, DO [address] [place] [address] Social History Tobacco UseTypesPacks/DayYears UsedDateSmoking Tobacco: FormerCigarettes1.515.9 [...] occasion?Never04/28/2024CommentsNoSex and Gender InformationValueDate RecordedSex Assigned at VresgBeqtpd21/28/2023 6:05 PM EDT Legal ZofLiwyjx74/04/2023 12:16 PM EDTGender QnrqnfznKvozuk54/28/2023 6:05 PM EDTSexual EqmuvrtkksdErkabhbb99/28/2023 6:05 PM EDTdocumented as of this encounter Plan of Treatment DateTypeDepartmentCare Team (Latest Contact Info)Adcxsawrnjz38/31/2026 9:30 AM EDTOffice Visit [facility] [address] [place] [address] Regina Frost MD [address] [facility] [email or web address] [place] [address] documented as of this encounter Procedures Procedure NamePriorityDate/TimeAssociated DiagnosisCommentsFL PKJIOWLVPKQUUCCPXGWEI08/26/2025 9:20 AM EST documented in this encounter Results * FL HYSTEROSALPINGOGRAPHY (10/19/2025 9:20 AM EST)Anatomical RegionLaterality ModalityOtherSpecimen (Source)Anatomical Location / LateralityCollection Method / VolumeCollection TimeReceived Time10/19/2025 9:20 AM EST Narrative 10/19/2025 9:22 AM EST [facility] ?[address] ? [place] [address] ? Fluoroscopy Report ? Signed ? Patient: KIERRA NATARAJAN ?MR#: [id number] ?? : 1990 ?Acct:[id number] ?? Age/Sex: 34 / F ?ADM Date: 10/19/25 ?? Loc: [place] ? Attending Dr: Remigio Real D.O. ? Ordering Physician: Remigio Real D.O. ?? Date of Service: 10/19/25 ?? Procedure(s): FL hysterosalpingography ?? Accession Number(s): [id number] ? cc: Remigio Real D.O.; Physician,Non-Staff M.D. ? [facility] ? [address] ? [place] [address] ? Patient Name: ?? KIERRA NATARAJAN ? MRN: [facility]:[id number] ? date: 1990 ?Sex: F ?? Assigned Patient Location: PST ?? Current Patient Location: PST ?? Accession/Order Number: [id number] ?? Exam Date: 10/19/2025 ??08:45 ?Report Date: 10/19/2025 ??09:20 ? At the request of: ?? REMIGIO ??DANDY ??DO ? Procedure: ??FL hysterosalpingography ? HYSTEROSALPINGOGRAM [...] M.D. ??10/19/2025 9:20 AM ? Dictation Location: [place] [address] ? Electronically authenticated by: [id number] ??Y ?? Date: 10/19/2025 ??09:20 ? Dictated By: ?Myra Mariee M.D. ? Signed By: ?10/19/25 0922 ? DD/ 0920 ? TD/TT: ? Film Or Tape Librarian: Procedure Note Radiology, Radiologist, - 10/19/2025 [place] [address] Fluoroscopy Report Signed Patient: KIERRA NATARAJAN R#: [id number] : 1990Acct:[id number] Age/Sex: 34 / FADM Date: 10/19/25 Loc: [place] Attending Dr: Remigio Real D.O. Ordering Physician: Remigio Real D.O. Date of Service: 10/19/25 Procedure(s): FL hysterosalpingography Accession Number(s): [id number] cc: Remigio Real D.O.; Physician,Non-Staff MJorge Luis The [address] [address] Patient Name: KIERRA NATARAJAN MRN: [facility]:[id number] date: 1990 Sex: F Assigned Patient Location: [facility] Current Patient Location: [facility] Accession/Order Number: [id number] Exam Date: 10/19/2025 08:45 Report Date: 10/19/2025 [...] Mariee M.D. 10/19/2025 9:20 AM Dictation Location: [place] [address] Electronically authenticated by: [id number] Y Date: 509:20 Dictated By: Myra Mariee M.D. Signed By:10/19/25921 DD/ 9 TD/TT: Film Or Tape Librarian: Authorizing ProviderResult TypeResult StatusCoredinora Real DOCLINISYNC IMAGINGFinal Result documented in this encounter Visit Diagnoses Not on filedocumented in this encounter Care Teams Team MemberRelationshipSpecialtyStart DateEnd Date Beronica Forte NP MARLENI Barton11/24/24documented as of this encounter
--- OUTSIDE RECORDS SUMMARY | 2025-10-24 08:24 | XMS_ITS | Encounter Summary ---
Author Organization [facility] [employer] [facility] [employer] Address [facility] [id number] [address] [place] [address] Care Team Providers Care Dental Technician Apprentice Name Role Phone No Pcp, No Pcp Primary Care Provider Unavailabl e Encounter Details DateTypeDepartmentCare Team (Latest Contact Info)Qlmkdhppowd27/20/2025Telephone [facility] [address] [place] [phone] Earlene Oneill CMA Social History Tobacco UseTypesPacks/DayYears UsedDateSmoking Tobacco: Every GbcJinqwhvzcp66.8 Started: 12/25/2016Smokeless Tobacco: NeverAlcohol UseStandard Drinks/Week CommentsYes0 (1 standard drink = 0.6 oz pure alcohol)rarePHQ-2AnswerDate RecordedTotal Wpqcr644/21/2025ChildcareAnswerDate RecordedChildcareUnknown 05/04/2019EmploymentAnswerDate QddtxotkDwsfejysczBqiebmk95/11/2019Purpose - Life AnswerDate RecordedPurpose and direction in oewxHlobuoh31/11/2021 CommentsNoSex and Gender InformationValueDate RecordedSex Assigned at Gdrylc3007/12/2022 7:31 PM EDTLegal AbfKalhhw32/04/2015 9:30 PM EDTGender Identity Eovhkd5107/12/2022 7:31 PM EDTSexual QkuopbesnezEcamdiyq02/19/2022 7:31 PM EDT documented as of this [...] DateEnd Date No Pcp, [place] [address] PCP - GeneralFamily Medicine05/31/24documented as of this encounter
--- OUTSIDE RECORDS SUMMARY | 2025-10-24 08:24 | XMS_ITS | Clinical Summary ---
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 Name Role Phone Rohit Herron PA-C Primary Care Provider [phone] Allergies Active AllergyReactionsCriticalityNoted DateCommentsDextromethorphan-Guaifenesin Ivmzzhk4604/10/2023 Medications MedicationSigDispense QuantityRefillsLast FilledStart DateEnd DateStatus metFORMIN [...] without aura and without status migrainosus 07/05/2025Hemicrania cvsyqvdi59/12/2025hronic daily ectdolcn07/12/2025Migraine without aura and without status migrainosus, not pehvgogtrjf83/12/2025 Encounters DateTypeDepartmentCare CrynEshxlimiprt71/06/2025Telephone Neurology [address] [place] [address] Antonio Farr DO Booster Operator - Other09/28/2025Results Follow-Up Ophthalmology [address] [place] [id number] Solo Loza MD 09/06/2025 8:15 AM EDTOffice Visit OPHT Ophthalmology [address] [place], [place] [id number] Solo Loza MD Diplopia (Primary Dx); Convergence insufficiency; Alternating exotropia; Other localized visual field defect, rzxjekkfo98/09/2025 Patient Msg Ophthalmology [address] [address] Provider, [facility]cf Appointment Uopmwaosgjy27/07/5778Tuxhdw83/06/2025 Get Medical Advice Neurology [address] [address] Antonio Farr DO Indomethacin meds updatefrom Last 3 Months Social History Tobacco UseTypesPacks/DayYears UsedDateSmoking Tobacco: FormerCigarettesQuit: mokeless Tobacco: Never Tobacco Cessation:Counseling Given: Not Answered Alcohol UseStandard Drinks/WeekCommentsNever0 (1 standard drink = 0.6 oz pure alcohol)PHQ-2AnswerDate RecordedPHQ-2 hyuox041rea Deprivation Index AnswerDate RecordedNational Score (1-100), lower number is lower risk64 03/31/2025State Score (1-10), lower number is lower tmjl063Data from: https://www.neighborhoodatlas.medicine.[facility]/. Last address used for [address] [facility] CommentsNoSex and Gender InformationValueDate RecordedSex Assigned at BirthNot on fileLegal SexFemale 10/28/2024 10:36 AM ESTGender IdentityNot on fileSexual OrientationNot on file Last Filed Vital Signs Vital SignReadingTime TakenCommentsBlood Fqlvthwr905/8008/10/2025 12:58 PM EDT Dhneb1650/12/2025 12:58 PM TSDKvvhoxvjauo82.7 ??C (98.1 ??F)03/30/2025 4:30 PM EDTRespiratory Zdfl095803/30/2025 4:30 PM EDTOxygen Rfzxnvtblq20%03/30/2025 4:30 PM EDTInhaled Oxygen Concentration--Apijzt464.5 kg (248 lb)07/05/2025 12:58 PM MCUNpfkae103.4 cm (5' 9.06 )03/15/2025 11:01 AM EDTBody Mass Index36.56 03/15/2025 11:01 AM EDT Plan of Treatment Health MaintenanceDue DateLast DoneCommentsAnxiety Xqxljordj61/29/2007Depression Ledtgwkrp85/29/2007HIV Vmhpcppzm75/29/2007Hepatitis C Aazhdrrmf11/29/2007 Hepatitis B Vaccine (1 of 3 - 19+ 3-dose series)2008Cervical Cancer Fyecqeevj62/29/2010HPV Vaccine (1 - 3-dose SCDM series)2016Covid-19 Vaccine ( season)2025Influenza Vaccine (#1)2025 DTaP,Tdap,Td Vaccine (2 - Td or Tdap) Procedures Procedure NamePriorityDate/TimeAssociated DiagnosisCommentsACETYLCHOLINE REC BLOCKING YVQmjnxzf01/28/2025 10:11 AM EDT Diplopia ACETYLCHOLINE REC BINDING EDWidszdx77/28/2025 10:11 AM EDT Diplopia ACETYLCHO R MOD BXNpyogoe80/28/2025 10:11 AM EDT Diplopia THYROID PEROXIDASE ANTIBODY CTVHSTnqeqmo31/28/2025 10:11 AM EDT Diplopia TSH TUYIexlttd39/28/2025 10:11 AM EDT Diplopia THYROID STIMULATING IMMUNOGLOBULIN BSVBGJluijys31/28/2025 10:11 AM EDT Diplopia T4/THYROXINE NIAIFEdeeiyg85/28/2025 10:11 AM EDT Diplopia T4 FREE/FREE WTKHHEYosdovj30/28/2025 10:11 AM EDT Diplopia T3 FREE XOQPfmpwfy39/28/2025 10:11 AM EDT Diplopia VISUAL FIELD 24-2 OU (BOTH EYES)Hluxwrf8809/06/2025 9:42 AM EDT Other localized visual field defect, bilateral from Last 3 Months Results * ACETYLCHOLINE REC BLOCKING AB (09/20/2025 10:11 AM EDT)ComponentValueRef Range Test MethodAnalysis TimePerformed AtPathologist SignatureAcetylcholine Blocking, InffHyjaipbcSkafurae39/03/2025 2:46 PM [facility] Comment:Anti-acetylcholine receptor blocking antibody test is used as an aid in diagnosis of myasthenia gravis. A negative result cannot exclude myasthenia gravis. Clinical correlation is required.Acetylcholine Receptor Blocking<13<21 % Jmerxhsnos21/03/2025 2:46 PM [facility] LABSpecimen (Source) Anatomical Location / LateralityCollection Method / VolumeCollection Time Received TimeBloodBLOOD SPECIMEN / UnknownVenipuncture / Iqonzwv5509/20/2025 10:11 AM EDT1 10:11 AM EDT Narrative Authorizing ProviderResult TypeResult StatusDevobilly Loza MDLABORATORYFinal Result Performing OrganizationAddressCity/State/ZIP CodePhone Number [facility] [address] * ACETYLCHOLINE REC BINDING AB (09/20/2025 10:11 AM EDT)ComponentValueRef Range Test MethodAnalysis TimePerformed AtPathologist SignatureAcetylcholine, Binding, GajaThadkebpNcrctgeu32/29/2025 3:17 PM [facility] Comment:Anti-acetylcholine receptor binding antibody test is used as an aid in diagnosis of myasthenia gravis. A negative result cannot exclude myasthenia gravis. Clinical correlation is required.Acetylcholine Receptor Binding<0.02 <0.21 nmol/L1 3:17 PM [facility] MA[facility] LABSpecimen (Source) Anatomical Location / LateralityCollection Method / VolumeCollection Time Received TimeBloodBLOOD SPECIMEN / UnknownVenipuncture / Xjaaxsz9409/20/2025 10:11 AM EDT1 10:11 AM EDT Narrative Authorizing ProviderResult TypeResult StatusDeroe Loza MDLABORATORYFinal Result Performing OrganizationAddressCity/State/ZIP CodePhone Number [facility] [address] [place] [address], [place] * THYROID STIMULATING IMMUNOGLOBULIN BLOOD (09/20/2025 10:11 AM EDT)Component ValueRef RangeTest MethodAnalysis TimePerformed AtPathologist SignatureTSI ZhcllryzghcEjktrqezSicqdhxi86/29/2025 11:55 AM [facility] LABTSI <0.10<0.55 IU/L1 11:55 AM [facility] LABComment:Thyroid Stimulating Immunoglobulin test is used as an aid in diagnosis of autoimmune hyperthyroidism especially in patients with Grave's orbitopathy and dermopathy. Low positive TSH receptor stimulating antibody levels may occasionally be found in patients with autoimmune hypothyroidism. Clinical co rrelation is required.Specimen (Source)Anatomical Location / Laterality Collection Method / VolumeCollection TimeReceived TimeBloodBLOOD SPECIMEN / UnknownVenipuncture / Gfvajyt7409/20/2025 10:11 AM EDT1 10:11 AM EDT Narrative Authorizing ProviderResult TypeResult StatusDeroe BROWNORATORYFinal Result Performing OrganizationAddressCity/State/ZIP CodePhone Number [facility] [address] [place] [address], * THYROID STIMULATING HORMONE (09/20/2025 10:11 AM EDT)ComponentValueRef Range Test MethodAnalysis TimePerformed AtPathologist SignatureTSH1.0600.270 - 4.200 mIU/L1 7:37 PM [facility] MA[facility] LABComment: If the patient is , TSH reference range varies by gestational period: First Trimester (weeks 9-12): 0.180-2.990 mIU/L Second Trimester: 0.110-3.980 mIU/L Third Trimester: 0.480-4.710 mIU/L Reece Hale et al. A Practical Approach for the Verifications and Determination of Site- and Trimester-Specific Reference Intervals for Thyroid Function tests in . Thyroid, 2019:29:3:412-420.Ace Dunn, et al. 2017 Guidelines of the [place] Thyroid Association for the Diagnosis and Management of Thyroid Disease during and the . Thyroid, 2017:27:3:315-389. Specimen (Source)Anatomical Location / LateralityCollection Method / Volume Collection TimeReceived TimeBloodBLOOD SPECIMEN / UnknownVenipuncture / Unknown 09/20/2025 10:11 AM EDT1 10:11 AM EDT Narrative Authorizing ProviderResult TypeResult StatusDeroe Loza MDLABORATORYFinal Result Performing OrganizationAddressCity/State/ZIP CodePhone Number [facility] [address] [place] [address], * T4/THYROXINE (09/20/2025 10:11 AM EDT)ComponentValueRef RangeTest Method Analysis TimePerformed AtPathologist SlbrqirlsW91.15.5 - 10.2 ug/dL09/20/2025 7:37 PM [facility] MA[facility] LABSpecimen (Source)Anatomical Location / LateralityCollection Method / VolumeCollection TimeReceived TimeBloodBLOOD SPECIMEN / UnknownVenipuncture / Hhhfyzh4709/20/2025 10:11 AM EDT1 10:11 AM EDT Narrative Authorizing ProviderResult TypeResult StatusDeroe Loza MDLABORATORYFinal Result Performing OrganizationAddressCity/State/ZIP CodePhone Number [facility] [address] [place] [address], * T4 FREE/FREE THYROXINE (09/20/2025 10:11 AM EDT)ComponentValueRef RangeTest MethodAnalysis TimePerformed AtPathologist SignatureFree T41.00.9 - 1.7 ng/dL 09/20/2025 7:37 PM EDTCMERCY [facility] MA[facility] LABSpecimen (Source)Anatomical Location / LateralityCollection Method / VolumeCollection TimeReceived Time BloodBLOOD SPECIMEN / UnknownVenipuncture / Vljeixr9109/20/2025 10:11 AM EDT 09/20/2025 10:11 AM EDT Narrative Authorizing ProviderResult TypeResult StatusSolo Loza MDLABORATORYFinal Result Performing OrganizationAddressCity/State/ZIP CodePhone Number [facility] [address] [place] [address], * T3, FREE (09/20/2025 10:11 AM EDT)ComponentValueRef RangeTest MethodAnalysis TimePerformed AtPathologist SignatureFree T32.72.3 - 4.1 pg/mL09/20/2025 7:37 PM EDSELECT [facility] MAIN LABSpecimen (Source)Anatomical Location / LateralityCollection Method / VolumeCollection TimeReceived TimeBloodBLOOD SPECIMEN / UnknownVenipuncture / Npvhrdw9809/20/2025 10:11 AM EDT1 10:11 AM EDT Narrative Authorizing ProviderResult TypeResult StatusSloo Loza MDLABORATORYFinal Result Performing OrganizationAddressty/State/ZIP CodePhone Number [facility] [address] [place] [address], * THYROID PEROXIDASE ANTIBODY (09/20/2025 10:11 AM EDT)ComponentValueRef Range Test MethodAnalysis TimePerformed AtPathologist SignatureTHYROID PEROXIDASE ANTIBODY4.3<5.6 IU/mL09/20/2025 7:19 PM EDSELECT [facility]ICAL [facility] MAIN LABComment: Thyroid Peroxidase Antibody test is used as an aid in diagnosis of autoimmune thyroid disease. Clinical correlation is required.Specimen (Source)Anatomical Location / LateralityCollection Method / VolumeCollection TimeReceived Time BloodBLOOD SPECIMEN / UnknownVenipuncture / Spbaaaa5909/20/2025 10:11 AM EDT 09/20/2025 10:11 AM EDT Narrative Authorizing ProviderResult TypeResult StatusDecalin Loza MDLABORATORYFinal Result Performing OrganizationAddressCity/State/ZIP CodePhone Number [facility] [address] * ACETYLCHOLINE RECEPTOR MODULATING ANTIBODY (09/20/2025 10:11 AM EDT)Component ValueRef RangeTest MethodAnalysis TimePerformed AtPathologist Signature Acetylcholine Recept/Modulating0<=45 %09/23/2025 1:57 PM EDTAPRESBYTERIAN KAS[facility] Comment: INTERPRETIVE INFORMATION: Acetylcholine Modulating [...] developed and its performance characteristics determined by [facility]. It has not been cleared or approved by the [place] Food and Drug Administration. This test was performed in a CLIA certified laboratory and is intended for clinical purposes. Performed By: [facility] [address] [place] [address] Senior Lead Developer: Walter Mayorga MD, PhD CLIA Number: [id number] Specimen (Source)Anatomical Location / LateralityCollection Method / Volume Collection TimeReceived TimeBloodBLOOD SPECIMEN / UnknownVenipuncture / Unknown 09/20/2025 10:11 AM EDT1 10:11 AM EDT Narrative Authorizing ProviderResult TypeResult StatusSolo BROWNORATORYFinal Result Performing OrganizationAddressCity/State/ZIP CodePhone Number [facility] [address] [place] [address] * VISUAL FIELD 24-2 OU (BOTH EYES) (09/06/2025 9:42 AM EDT)Anatomical Region LateralityModalityOther Narrative 09/06/2025 10:12 AM EDT Date of Procedure 09/06/2025 Spring Tacker Information Blanker Operator: Ladan Sharma Start time: 9:41 AM Reliability Right Eye Poor. Left Eye Good. Interpretation Right Eye Non-specific defect. Left Eye Non-specific defect. Interval Change Right Eye Initial Left Eye Initial Authorizing ProviderResult TypeResult StatusDevobilly Loza MDOPHTHALMOLOGYFinal Result from Last 3 Months Insurance Care Teams Team MemberRelationshipSpecialtyStart DateEnd Date Rohit Herron PA-C [address] [facility] [address] [place] [address] PCP - GeneralFamily Medicine03/30/25
--- NOTE | 2025-10-24 08:49 | XR_ITS ---
[facility] [place] [id number] Patient Name: KIERRA HAIRSTON MRN: [id number] date: 1990 Sex: F Assigned Patient Location: [facility] Current Patient Location: [facility] Accession/Order Number: [id number] Exam Date: 10/24/2025 09:00 Report Date: 10/24/2025 09:39 At the request of: REMIGIO DORMAN DO Procedure: XR chest 2V PA AND LATERAL CHEST: CLINICAL HISTORY: Preoperative clearance. Prior history of tobacco use. COMPARISON: None There is no focal parenchymal consolidation, effusion or pneumothorax. The cardiac, hilar and mediastinal silhouettes are within normal limits. There is no vascular congestion. The visualized bony thorax is intact. XR/XR chest 2V IMPRESSION: NO ACUTE CARDIOPULMONARY ABNORMALITY. Impression dictated by: Myra Mariee M.D. 10/24/2025 9:39 AM Dictation Location: [place] [address] Electronically authenticated by: [id number] Y Date: 10/24/2025 09:39
== END 2025-10-24 08:20 | disposition home or self-care (01) ==
LOC: PST 08:21
PROVIDERS: Visit Provider Obstetrics & Gynecology
DX: Z01.810 Encounter for preprocedural cardiovascular examination (principal); R10.20 Pelvic and perineal pain unspecified side
CPT/HCPCS: 71046

== ENCOUNTER 2025-11-01 08:09 | Day surgery (SDC) | payer BC, SELFPAY ==
[2025-10-24 08:58] VITALS: BP 125/80; PULSE 80; TEMP 36.4; O2SAT 99; BMI 38.3
[2025-11-01] VITALS (15 sets, daily range): BP systolic 117–142; BP diastolic 64–94; PULSE 62–79; TEMP 36.4; O2SAT 91–100; BMI 38.0
--- OUTSIDE RECORDS SUMMARY | 2025-11-01 08:19 | XMS_ITS | CCD ---
Author Organization [facility] ion [facility] Care Team Providers Care Product/Industry Consultant Name Role Phone SHAMMO, WILLAM Admitting Unavailable [...] Unavailable Jann ANP-BC Ro Attending Provider [phone] NON STAFF Primary Care Provider Unavailabl e PETER Forte-C Ro Pickering Attending Provider [phone] NON STAFF Primary Care Unavailable Windnagel, Ro [...] Pcp Primary Care Provider Unavailabl e Jann EXECUTIVE ADMINISTRATIVE ASSISTANT, Ro Pickering Unavailable Rohit Leos PA-C Primary Care Provider No Pcp, No Pcp Primary Care Provider UnavailKEMI Richards Attending Unavailable RO FORTE Referring Unavailable NO PCP, NO PCP Primary Care Unavailable NON STAFF Primary Care Provider UnavailRoxann Whitlock APRN Attending Provider ACE COKER Attending Unavailable ROHIT LEOS Attending Unavailable JIMMIE ANTOINE Attending Unavailable BOO, ACE Attending Unavailable ACE COKER Attending Unavailable ROHIT LEOS Attending Unavailable ACE COKER Referring Unavailable BOO, ACE Referring Unavailable ROHIT LEOS Attending Unavailable Jann EXECUTIVE ADMINISTRATIVE ASSISTANT, Ro Pickering Unavailable ODALIS, MAGGY Referring Unavailable [...] Facility (20 sources)Dextromethorphan / guaiFENesin; Translations: [DEXTROMETHORPHAN-GUAIFENESIN]Drug Ldsinps15-63-0496ShfpjaoRNXV [facility] Medications Current Medications MedicationDrug Class(es)DatesSig (Normalized)Sig (Original)amoxicillin 875 mg / clavulanate 125 mg oral tablet (6 sources)Penicillin-class AntibacterialStart: 10-01-2024 End: 43-66-2876cmyk 1 tablet by mouth in the morningamoxicillin-clavulanate (Augmentin) 875-125 MG tablet Indications: LAD (lymphadenopathy) of left cer vical region Take 1 tablet (875 mg) by mouth in the morning and 1 tablet (875 mg) before bedtime. Do all this for 14 days. 28 tablet 10/01/2024 10/15/2024 Activeazelastine hydrochloride 0.137 mg/actuat metered dose nasal spray (3 sources)Histamine-1 Receptor AntagonistStart: 06-02-2025 End: 63-28-2371whstxwvxwn (Astelin) 0.1 % nasal spray 1 spray in the morning and 1 spray in the evening. 06/02/2025 06/02/2026 Activebaclofen 10 mg oral tablet (20 sources)gamma-Aminobutyric Acid-ergic AgonistStart: 01-06-2025 End: 41-91-0936qekelpxm 10 mg tablet Indications: Right trigeminal neuralgia Take half-1 tablet twice a day as needed for facial pain, may cause drowsiness 30 tablet 1 01/06/2025 ActiveStart: 09-14-2024 End: 00-35-8998dfen 1 tablet by mouth in the morning, [...] 09/14/2024 10/13/2024 Discontinued (Therapy completed)Start: 09-13-2024 End: 26-11-8921vzxv 0.5 tablet by mouth in the morning, [...] tablet 2 09/13/2024 09/14/2024 Discontinued (Reorder) End: 22-13-8003kvjz 5 mg by mouth in the morning, then take 5 mg by mouth in the evening, then take 5 mg by mouth at bedtimebaclofen (Lioresal) 10 MG tablet Take 5 mg by mouth in the morning and 5 mg in the evening and 5 mgbefore bedtime. 09/13/2024 Discontinued (Reorder)busPIRone hydrochloride 5 mg oral tablet (1 source)Start: 93-72-8423jsfe 1 tablet by mouth in the morning, then take 1 tablet by mouth in the eveningbusPIRone (BUSPAR) 5 mg tablet Indications: Generalized anxiety disorder Take 1 tablet (5 mg total)by mouth in the morning and 1 tablet (5 mg total) in the evening. 60 tablet 05/14/2025 ActiveStart: 20-62-5487neut 1 tablet by mouth in the morning, then take 1 tablet by mouth in the eveningbusPIRone (BUSPAR) 5 mg tablet Indications: Generalized anxiety disorder Take 1 tablet (5 mg total)by mouth in the morning and 1 tablet (5 mg total) in the evening. 60 tablet 05/14/2025 Cpbohw67 hr carBAMazepine 300 mg extended release oral capsule (20 sources)Mood StabilizerStart: 09-23-2024 End: 67-01-0396mccw 1 capsule by mouth in the morning, then take 1 capsule by mouth every twelve hours at bedtimecarBAMazepine ER (Carbatrol) 300 MG 12 hr capsule Indications: Trigeminal neuralgia of right side of face Take 1 capsule (300 mg) by mouth in the morning and 1 capsule (300 mg) before bedtime. Do not crush or chew.. 60 capsule 2 09/23/2024 09/29/2025 DiscontinuedStart: 09-13-2024 End: 60-84-2793hjml 1 tablet by mouth in the morningcarBAMazepine (TEGretol) 200 MG tablet Indications: Trigeminal neuralgia of right side of face (CMS/HCC) Take 1 tablet (200 mg) by mouth in the morning and 1 tablet (200 mg) before bedtime. 60 tablet2 09/13/2024 09/13/2025 Activecephalexin 500 mg oral capsule (7 sources)Cephalosporin Antibacterial End: 09-47-1195abvrwusllc (Keflex) 500 MG capsule Take 500 mg by mouth in the morning and 500 mg at noon and 500 mg in the evening and 500 mg before bedtime. 09/17/2024 Discontinued (Therapy completed)cetirizine hydrochloride 10 mg oral tablet (4 sources)Histamine-1 Receptor AntagonistStart: 97-56-0724skohtucdmm (ZyrTEC) 10 MG tablet 06/02/2025 Activecholecalciferol 0.01 mg chewable tablet (5 sources)Vitamin DStart: 44-71-5534Hgcresfpiibzsly, Vitamin D3, (VITAMIN D-3) 10 mcg (400 unit) chew 04/24/2024 Activeclindamycin 10 mg/ml topical lotion (11 sources)Lincosamide AntibacterialStart: 68-86-3143Oikufygnqai Phosphate (CLEOCIN T) 1 % lotion Apply 1 application to affected area as needed. 024 ActiveStart: 02-17-2024 End: 04-90-7691tfgylvvpnuj (Cleocin T) 1 % lotion Indications: Other specified follicular disorders Apply thin layer to the affected area, daily, as needed for flares 30 day supply 60 mL 3 02/17/2024 08/19/2024 Discontinuedergocalciferol 1.25 mg oral capsule (10 sources)Provitamin D2 CompoundStart: 05-31-2024 End: 46-69-2728tcop 1 capsule by mouth every weekergocalciferol (Drisdol) 1.25 MG (90286 UT) capsule Indications: Vitamin D deficiency Take 1 capsule (1.25 mg) by mouth 1 (one) time per week 12 capsule 3 05/31/2024 09/08/2024 Discontinued escitalopram 10 mg oral tablet (7 sources)Serotonin Reuptake InhibitorStart: 09-14-2025 End: 93-04-2761Ooixsmesfkol Oxalate 5 mg tablet Discontinued MG PO September 14, 2025 12:00am September 14, 2025 9:16amStart: 12-68-4546sttspccxltmt (Lexapro) 10 MG tablet 07/20/2025 ActiveStart: 06-02-2025 End: 89-25-8994swrjavpytkgk oxalate (LEXAPRO) 5 mg tablet Take 5 mg by mouth. 06/02/2025 08/31/2025 Activefluticasone propionate 0.05 mg/actuat metered dose nasal spray (9 sources)CorticosteroidStart: 15-46-7201Nuynipzbxzy Propionate 50 mcg/actuation spray,suspension Active INTRANASAL September 14, 2025 12:00am Complies with drug therapyStart: 97-51-3077ngwa 1 spray(s) nasal route twice dailyfluticasone (Flonase) 50 MCG/ACT nasal spray USE 1 SPRAY(S) IN EACH NOSTRIL TWICE DAILY SHAKE GENTLY BEFORE FIRST USE PRIME PUMP AFTER USE CLEAN TIP AND REPLACE CAP 07/14/2025 ActiveStart: 10-14-2024 End: 22-21-9764apcy 2 spray(s) nasal route once dailyfluticasone (FLONASE) 50 mcg/actuation nasal spray Use 2 sprays in each nostril once daily. 10/14/2024 10/14/2025 ActivehydrOXYzine hydrochloride 25 mg oral tablet (20 sources)AntihistamineStart: 90-06-5163Tmgoqtqeazd Hcl 25 mg tablet Active MG PO September 14, 2025 12:00am Complies with drug therapyStart: 49-66-2796dnur 5 tablets by mouth three times daily as neededhydrOXYzine HCl (Atarax) 10 MG tablet Take 50 mg by mouth 3 (three) times a day as needed 07/21/2009 Active Start: 83-76-8586fdctOTAfwqu HCl (ATARAX) 10 mg tablet Take 10 mg by mouth as needed. 07/21/2009 Activeibuprofen 800 mg oral tablet (20 sources)Nonsteroidal Anti-inflammatory DrugStart: 09-04-2024 End: 39-39-9299uoadpumeg 800 MG tablet Take 600 mg by mouth every 6 (six) hours if needed for moderate pain 09/04/2024 09/29/2025 DiscontinuedStart: 09-04-2024 take 1 tablet by mouth every six hours as needed for painibuprofen 800 MG tablet Take 800 mg by mouth every 6 (six) hours if needed for moderate pain 09/04/2024 Activeindomethacin 25 mg oral capsule (6 sources)Nonsteroidal Anti-inflammatory DrugStart: 30-42-0443gbcjkwlwsdbp (Indocin) 25 MG capsule 07/08/2025 Activeiv contrast (will be provided with radiology test) (1 source)Start: 11-23-2024 End: 23-21-7349xynpsd 1 dose intravenously onceiv contrast (will be [...] oral tablet (10 sources)Quinolone AntimicrobialStart: 09-04-2024 End: 84-91-5693zrwr 2 tablets by mouth once dailylevoFLOXacin (Levaquin) 250 MG tablet Take 2 tablets by mouth Daily 09/04/2024 09/17/2024 Discontinued (Therapy completed)magnesium glycinate 118 mg magnesium cap (5 sources)Start: 73-06-7750czhf 1 capsule by mouth once dailymagnesium glycinate 118 mg magnesium cap Take 118 mg by mouth once daily. 04/24/2024 ActivemedroxyPROGESTERone acetate 10 mg oral tablet (6 sources)ProgestinStart: 02-03-2024 End: 77-73-2852lbic 1 tablet by mouth once dailymedroxyPROGESTERone (Provera) 10 MG tablet Indications: Abnormal uterine bleeding (AUB) Take 1 tablet (10 mg) by mouth Daily Take 1 tablet by mouth daily for 7 days beginning on day 16 of the menstrual cycle. 14 tablet 3 02/03/2024 08/19/2024 Oesoqtzcgfft65 hr metFORMIN hydrochloride 500 mg extended release oral tablet (20 sources)BiguanideStart: 06-30-2024 End: 76-29-0832qqzv 1 tablet by mouth every twenty-four hours [...] mg oral tablet (6 sources)CorticosteroidStart: 09-13-2024 End: 15-01-4589nyhvivOXACDHOnlsvv (Medrol) 4 MG tablet 09/13/2024 10/01/2024 Discontinued (Therapy completed)omeprazole 40 mg delayed release oral capsule (6 sources)Proton Pump InhibitorStart: 28-98-6513lxegohkmbs (PriLOSEC) [address] capsule Take 40 mg by mouth 07/14/2025 ActiveStart: 34-61-5503Ivrkxamzek 20 mg TbEC 1 tab daily while taking Indomethacin. 15 tablet 1 07/05/2025 Active prazosin 1 mg oral capsule (1 source)alpha-Adrenergic BlockerStart: 69-30-9449Eawrsdgp 1 mg capsule Active MG PO September 14, 2025 12:00am Complies with drug therapypredniSONE 20 mg oral tablet (3 sources)Start: 10-01-2024 End: 63-59-6623teho 1 tablet by mouth in the morningpredniSONE (Deltasone) 20 MG tablet Indications: LAD (lymphadenopathy) of left cervical region Take1 tablet (20 mg) by mouth in the morning and 1 tablet (20 mg) before bedtime. Do all this for 6 days. 12 tablet 10/01/2024 10/07/2024 Activerizatriptan 10 mg oral tablet (10 sources)Serotonin-1b and Serotonin-1d Receptor AgonistStart: 10-14-2024 End: 49-61-1724Ppcjylweozp 10 mg tablet Active 10 MG PO as needed December 30, 2024 1:00am Complies with drug therapytriamcinolone acetonide 1 mg/ml topical cream (4 sources)CorticosteroidStart: 00-98-9607Cjxvjqmpbchqi Acetonide 0.1 % cream Active APPLIC TOPICAL September 14, 2025 12:00am Complies with drug therapy Start: 84-46-6115lbtytyyjjqukf (Kenalog) 0.1 % cream 07/21/2025 Ysfcft09 hr venlafaxine 37.5 mg extended release oral capsule (10 sources)Serotonin and Norepinephrine Reuptake InhibitorStart: 09-08-2024 End: 50-39-5590odqp 1 capsule by mouth once dailyvenlafaxine XR (Effexor XR) 37.5 MG 24 hr capsule Indications: Mood disorder (CMS/HCC) Take 1 capsule (37.5 mg) by mouth Daily Do not crush or chew. 30 capsule 11 09/08/2024 09/17/2024 Discontinued (Therapy completed)vitamin b12 0.1 mg oral tablet (6 sources)Vitamin B12 End: 92-14-5974xfzv 1 tablet by mouth once dailycyanocobalamin (Vitamin B-12) 100 MCG tablet Take 100 mcg by mouth Daily 08/19/2024 Discontinued Completed/Discontinued Medications MedicationDrug Class(es)DatesSig (Normalized)Sig (Original)cyclobenzaprine hydrochloride 5 mg oral tablet (4 sources)Muscle Relaxant End: 41-22-5845jupd 1 tablet by mouth once dailycyclobenzaprine (FLEXERIL) 5 mg tablet Take 5 mg by mouth once daily. 07/05/2025 Discontinuedgabapentin 100 mg oral capsule (4 sources)Anti-epileptic AgentStart: 04-13-2025 End: 67-15-9993qzag 1 capsule by mouth once daily before dinnergabapentin (NEURONTIN) 100 mg capsule Indications: Right trigeminal neuralgia Take 1 capsule by mouth daily before dinner for 180 days. 30 capsule 5 04/13/2025 07/05/2025 Discontinued (Side Effects)Start: 03-15-2025 End: 89-07-2559lkfm 1 capsule by mouth once daily at bedtimegabapentin (NEURONTIN) 300 mg capsule Indications: Chronic migraine without aura, intractable, without status migrainosus , Trigeminal nerve disorder Take 1 capsule by mouth daily at bedtime for 90 days. 30 capsule 2 03/15/2025 06/13/2025 Active Problems Active Problems Problem ClassificationProblemDateDocumented DateEpisodic/Chronic Administrative/social admission (2 sources)Patient encounter status; Translations: [Person consulting for explanation of examination or test findings]93-05-7409ZwsyvfmrIcwlgka disorders (20 sources)Anxiety; Translations: [Posttraumatic stress disorder]Onset: 616729-35-1061AxumakwJgbanbsbu-fzpwlll, conduct, and disruptive behavior disorders (2 sources)Attention deficit hyperactivity kyduiffr70-90-4341HokhpciLjamogte of mouth; excluding dental (1 source)Aphthous ulceration of skin and/or mucous membrane; Translations: [Recurrent oral aphthae]71-23-3212GxgvmpydClokerhrfocax (6 sources)Endometriosis (clinical); Translations: [Endometriosis, unspecified] Onset: 536815-33-1119HjfhivwEismpr infertility (4 sources)Female infertility; Translations: [Female infertility, unspecified] 99-36-9356BwvvdmfOwiblcxcmwlau symptoms and ill-defined conditions (1 source)Nocturnal enuresis; Translations: [NOCTURNAL ENURESIS]Onset: 54-67-4772LuihfxrQsrgzfnf; including migraine (20 sources)Chronic intractable migraine without aura; Translations: [Chronic migraine without aura, intractable, without status migrainosus]Onset: 03-30-2025 93-40-1135HshpcptUnaupelu; including migraine (5 sources)Pain in face; Translations: [Right facial pain]Onset: 07-05-2025 09-03-8005GlmwfypbBqauzwhy; including migraine (1 source)Headache; including migraine; Translations: [Chronic daily headache] Onset: 33-56-2984Ebnarpniv disorders (4 sources)Irregular periods; Translations: [Irregular menstruation, unspecified]51-97-8944IqnswihIjqctbbyjzvlv mental health disorders (2 sources)Sleep terrors [night terrors]; Translations: [Sleep terrors (night terrors)]Onset: 05-68-6802JvbsrejBrda disorders (8 sources)Depressive disorder; Translations: [Mood disorder]Onset: 07-13-2019 60-44-0022JypcfulIzscxuqfqzmh breast conditions (2 sources)Lump in right breast; Translations: [Unspecified lump in the right breast, unspecified quadrant]70-03-9914AjsdcyzdAbrwjagtrlo deficiencies (2 sources)Vitamin D deficiency, unspecified; Translations: [Vitamin D deficiency, unspecified]Onset: 29-66-8300NestrwtUrvim endocrine disorders (4 sources)Polycystic ovary syndrome; Translations: [Polycystic ovarian syndrome]70-16-6798TekolysKsshn eye disorders (1 source)Convergence insufficiency; Translations: [Convergence insufficiency] Onset: 15-46-2359RbrkdrssBflfc eye disorders (1 source)Alternating exotropia; 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]Onset: 82-04-0511QytaargyEzbuo female genital disorders (1 source)Pain in female genitalia on intercourse; Translations: [Unspecified dyspareunia]42-80-8840QscrnkuEjkxl female genital disorders (1 source)History of gynecological disorder; Translations: [Personal history of other diseases of the female genital tract]36-73-3755BxhgqlodCboej nervous system disorders (1 source)Polyneuropathy, unspecified; Translations: [Polyneuropathy, unspecified]Onset: 61-36-5496AgbvrjpTrctu nervous system disorders (20 sources)Skin sensation disturbance; Translations: [Anesthesia of skin]Onset: 413806-60-1026BfbbsrcuVwjzl nervous system disorders (12 sources)Right trigeminal neuralgia; Translations: [Trigeminal neuralgia] 73-59-3705WphdtuhmTmwen nervous system disorders (8 sources)Trigeminal nerve disorder; Translations: [Disorder of trigeminal nerve, unspecified]58-57-2615EkqqotvsClmnz non-traumatic joint disorders (4 sources)Pain in unspecified joint; Translations: [PAIN IN UNSPECIFIED JOINT] Onset: 64-44-0108BwkejlxoIjgbf nutritional; endocrine; and metabolic disorders (2 sources)Hypomagnesemia; Translations: [Hypomagnesemia]Onset: 07-14-2025 ChronicOther upper respiratory disease (2 sources)Allergic rhinitis, unspecified; Translations: [Allergic rhinitis, unspecified]Onset: 17-69-1629PelmovvImanb upper respiratory infections (2 sources)Chronic sinusitis; Translations: [Chronic sinusitis, unspecified] Onset: 067824-64-9341ZchwsivPrqefaok codes; unclassified (1 source)Family history of other diseases of the musculoskeletal system and connective tissue; Translations:[FAM HX OTH DZ MUSK SYS AND CNCTV TISS]Onset: 51-31-1576ZvfxgijdFdmkpbrjmbib (1 source)Low back pain, unspecified; Translations: [Low back pain, unspecified] Onset: 08-10-2024 Past or Other Problems Problem ClassificationProblemDateDocumented DateEpisodic/ChronicAbdominal pain (2 sources)Right upper quadrant pain; Translations: [Right upper quadrant pain] Onset: 68-97-5728XdpmjwxkMqgalqjtt and vision defects (20 sources)Diplopia; Translations: [Diplopia]Onset: EpisodicConditions associated with dizziness or vertigo (20 sources)Dizziness; Translations: [Dizziness and giddiness]Onset: 08-17-2024 70-54-3884CectvcxlShfndgwvzzlxx symptoms and ill-defined conditions (2 sources)Dysuria; Translations: [Dysuria]Onset: 34-64-2934Eymjlcou Immunizations and screening for infectious disease (5 sources)Encounter for screening for human immunodeficiency virus [HIV]; Translations: [Exposure to sexuallytransmissible disorder]Onset: 06-04-2016 73-94-5489FcwgpqrjObpldqxvoyoit (6 sources)Cervical lymphadenopathy; Translations: [Localized enlarged lymph nodes]Onset: 340528-55-8923RburrzqxMtkgkfh and fatigue (2 sources)Other fatigue; Translations: [Other fatigue]Onset: 15-61-1577Eszhtqdp Mood disorders (1 source)Mood disordersOnset: 420564-58-8318Pneqrwx (2 sources)Candidiasis, unspecified; Translations: [Candidiasis, unspecified] Onset: 62-30-1211WmlkwawmIbclg connective tissue disease (2 sources)Myalgia, unspecified site; Translations: [Myalgia, unspecified site] Onset: 43-84-2552BsuzrllrKgnyh female genital disorders (2 sources)Other specified noninflammatory disorders of vagina; Translations: [Other specified noninflammatorydisorders of vagina]Onset: 97-54-6145Cjkbcbjs Other nervous system disorders (20 sources)Abnormal gait; Translations: [Unspecified abnormalities of gait and mobility]Onset: 644984-89-4203OyhfgwfgLtidl nervous system disorders (9 sources)Numbness of saddle area; Translations: [Anesthesia of skin]Onset: 044303-79-6939YikrnhhwOrppn nervous system disorders (3 sources)Trigeminal neuralgia; Translations: [Trigeminal neuralgia]Onset: 72-10-7668IjgvkigfLznov nervous system disorders (1 source)Disorder of trigeminal nerve, unspecified; Translations: [Trigeminal nerve disorder]Onset: 68-52-3272NcsxpcfrWnpxm nervous system disorders (1 source)Personal history of other diseases of the nervous system and sense organs; Translations: [History of trigeminal neuralgia]Onset: 28-07-8067Bvgmmqjs Other screening for suspected conditions (not mental disorders or infectious disease) (5 sources)Encounter for screening for cardiovascular disorders; Translations: [Patient encounter status]Onset: 954922-54-1309OzvuhtvvKuyfg skin disorders (2 sources)Disorder of the skin and subcutaneous tissue, unspecified; Translations: [Disorder of the skin and subcutaneous tissue, unspecified]Onset: 59-14-6848UlaxqjbmAgjis upper respiratory disease (2 sources)Other specified disorders of nose and nasal sinuses; Translations: [Other specified disorders of nose and nasal sinuses]Onset: 86-52-9106Qkhfhnxx Other upper respiratory infections (3 sources)Viral pharyngitis; Translations: [Acute pharyngitis, unspecified] Onset: 814380-50-5363ZjwyjllrRmzrmijo codes; unclassified (2 sources)Other general symptoms and signs; Translations: [Other general symptoms and signs]Onset: 76-93-3326DiusbeonJyzwseqbulx; intervertebral disc disorders; other back problems (20 sources)Pain in thoracic spine; Translations: [Occipital neuralgia]Onset: 75-28-8042Tjzuehfg Results Test NameValueInterpretationReference RangeFacilityIGP,APTIMA HPV,AGE GDLNon 87-95-2724MOO GDLN ACOG TESTINGNote.NOMS HealthcareComment on above:TESTS RESULT FLAG UNITS REF RANGE LAB Clinician Provided Cytology Information Source.............Cervix;Endocervix No. of containers..01 ThinPrep Vial Age Verna ARNOLD Carmen... FLAG LEGEND: L-Low Normal,H-High Normal,LL-Alert Low,HH-Alert High <-Panic Low,>-Panic High,A-Abnormal,AA-Critical Abnormal Performed at: 01 =[address] [phone] Kiesha Monroe MD, HPV APTIMANegativeNegativeNOMS HealthcareComment on above:This nucleic acid amplification test detects fourteen high- risk HPV types (16,18,31,33,35,39,45,51,52,56,58,59,66,68) without differentiation. Performed at: =[address] [id number] [employer] Operator: Kiesha Monroe MD, Phone: [phone] Performed at: [address] [id number] [employer] Operator: Kiesha Monroe MD, Phone: [phone] IGP, APTIMA HPV, RFX 16/18,45Note.NOMS HealthcareComment on above:TESTS RESULT FLAG UNITS REF RANGE LAB DIAGNOSIS: 02 NEGATIVE FOR INTRAEPITHELIAL LESION OR MALIGNANCY. Specimen adequacy: 02 Satisfactory for evaluation. Endocervical and/or squamous metaplastic cells (endocervical component) are present. Performed by: 02 Osiel Hull, Director Of Corporate Sponsorships ([facility]) . 02 Note: Note 02 The Pap [...] ThinPrep(R) pap test was interpreted using the Rule.(R) Buzzmove(TM) Cervical Algorithm whole slide imaging system. HPV Genotype Reflex Note 02 Criteria not met, HPV Genotype not performed. FLAG LEGEND: L-Low Normal,H-High Normal,LL-Alert Low,HH-Alert High <-Panic Low,>-Panic High,A-Abnormal,AA-Critical Abnormal Performed at: 02 [facility] [address] [address] Kiesha Monroe MD, BRUSH-SPATULA CERVIX ENDOCERVIX CLINISYNCNOMS HealthcareACETYLCHOLINE REC BINDING ABon 98-01-1965BSVVSLDXTDKEW BINDING, QUALNegativeNormalNegativeFisher-Titus Medical CenterComment on above: Order Comment: Specimen Type: BLOOD SPECIMENOrdering Facility: [facility] Address:[address] [place], [place] [address]Afkqsk Comment: Anti- acetylcholine receptor binding antibody test is used as an aid in diagnosis of myasthenia gravis. A negative result cannot exclude myasthenia gravis. Clinical correlation is required.Performed By: #### ACHRAB ####[facility] LABCLIA [id number] [address] [place] Acetylcholine receptor binding Ab (S) [Moles/Vol]<0.02Normal<0.21[facility] on above:Order Comment: Specimen Type: BLOOD SPECIMENOrdering Facility: [facility] Address:[address] [place], [place] [address]Performed By: #### ACHRAB ####[facility] LABCLIA [id number] [place] [address] [place] ACETYLCHOLINE REC BLOCKING ABon 28-51-1834CDSLNBMUZUDES BLOCKING, QUALNegative NormalNegativeK[facility] on above:Order Comment: Specimen Type: BLOOD SPECIMENOrdering Facility: [facility] Address:[address] [place], [place] [address]Result Comment: Anti-acetylcholine receptor blocking antibody test is used as an aid in diagnosis of myasthenia gravis. A negative result cannot exclude myasthenia gravis. Clinical correlation is requ ired.Performed By: #### ACEBAB ####[facility] LABCLIA [id number] [address]Acetylcholine receptor blocking Ab/Acetylcholine Ab.total (S) [Molar fraction]<13Normal<21[facility] on above:Order Comment: Specimen Type: BLOOD SPECIMENOrdering Facility: [facility] Address:[address] [place], [place] [address]Performed By: #### ACEBAB ####[facility] LABCLIA [id number] [address] [place] ACETYLCHOLINE RECEPTOR MODULATING ANTIBODYon 60-25-4301MIWHKGYNDHKBW RECEPT/MODULATING0 %Normal<=45[facility] on above:Order Comment: Specimen Type: BLOOD SPECIMENOrdering Facility: [facility] Address:[address] [place], [place] [address]Result Comment: INTERPRETIVE INFORMATION: Acetylcholine Modulating Ab Negative [...] developed and its performance characteristics determined by [employer]. It has not been cleared or approved by the [place] Food and Drug Administration. This test was performed in a CLIA certified laboratory and is intended for clinical purposes. Performed By: [facility] [address] [place] [id number] Lens Blank Gauger: Walter Mayorga MD, PhD CLIA Number: [id number] By: #### ACEMOD ####[facility]ENTERIA [id number] [place], [place] [address]T2Qrbw SerPl-mCncon 09-20-2025 Free T3 [Mass/Vol]2.7 pg/mLNormal2.3-4.1CBlanchard Valley Health SystemComment on above:Order Comment: Specimen Type: BLOOD SPECIMENOrdering Facility: [facility] Address:[address] [place], [place] [address]Performed By: #### 3016-3, 3024-7, 3026-2, 3051-0 ####[facility] LABCLIA [id number] [address] STATES OF [facility]OS[facility]ITALT4 Free SerPl-mCncon 81-20-8384Rbfe T4 [Mass/Vol]1.0 ng/dLNormal0.9-1.7ClevelUNC Health Rex [facility] Comment on above:Order Comment: Specimen Type: BLOOD SPECIMENOrdering Facility: [facility] Address:[address] [place] [address] Performed By: #### 3016-3, 3024-7, 3026-2, 3051-0 ####[facility] LABCLIA [id number] [place] [address] [place] T4 SerPl-mCncon 78-27-0131T7 [Mass/Vol]8.1 ug/dLNormal5.5-10.2CAdena Health Systemment on above:Order Comment: Specimen Type: BLOOD SPECIMENOrdering Facility: [facility] Address:[address] [place], [place] [address]Performed By: #### 3016-3, 3024-7, 3026-2, 3051-0 ####[facility] LABCLIA [id number] [address] STATES OF [facility] HOSPITALTHYROID PEROXIDASE ANTIBODYon 07-71-3627UZJ Ab Qn4.3 [IU]/mLNormal<5.6 [facility] on above:Order Comment: Specimen Type: BLOOD SPECIMENOrdering Facility: [facility] Address:[address] [place], [place] [address]Result Comment: Thyroid Peroxidase Antibody test is used as an aid in diagnosis of autoimmune thyroid disease. Clinical correlation is required.Performed By: #### MICRO ####[facility] LABCLIA [id number] [place] [address] [place] STATES OF AMERICATHYROID STIMULATING IMMUNOGLOBULIN BLOODon 70-98-8579Qenwccr stimulating immunoglobulins actual/normal (S) [Relative mass conc]%Normal<0.55[facility] Comment on above:Order Comment: Specimen Type: BLOOD SPECIMENOrdering Facility: [facility] Address:[address] [place], [place] [address]Result Comment: Thyroid Stimulating Immunoglobulin test is used as an aid in diagnosis of autoimmune hyperthyroidism especially in patients with Grave's orbitopathy and dermopathy. Low positive TSH receptor stimulating antibody levels may occasionally be found in patients with autoimmune hypothyroidism. Clinical correlation is required.Performed By: #### TSIGIM ####[facility] LABCLIA [id number] [place] [address] [place] TSI QUALITATIVENegativeNormalNegativeKettering Health [facility] on above: Order Comment: Specimen Type: BLOOD SPECIMENOrdering Facility: [facility] Address:[address] [place], [place] [address]Performed By: #### TSIGIM ####[facility] LABCLIA [id number] [address]TS SerPl-aCncon 77-84-3478HFN Qn1.060 m[IU]/L Normal0.270-4.200[facility]itus Medical CenterComment on above:Order Comment: Specimen Type: BLOOD SPECIMENOrdering Facility: [facility] Address:[address] [place] [id number] Comment: If the patient is , TSH reference range varies by gestational period: First Trimester (weeks 9-12): 0.180-2.990 mIU/L Second Trimester: 0.110-3.980 mIU/L Third Trimester: 0.480-4.710 mIU/L Reece Hale et al. A Practical Approach for the Verifications and Determination of Site- and Trimester-Specific Reference Intervals for Thyroid Function tests in . Thyroid, 2019:29:3:412-420.Ace Dunn, et al. 2017 Guidelines of the [place] Thyroid Association for the Diagnosis and Management of Thyroid Disease during and the . Thyroid, 2017:27:3:315-389. Performed By: #### 3016-3, 3024-7, 3026-2, 3051-0 ####[facility] LABCLIA [id number] [place] [id number] [place] [facility] Orders Onlyon 45-04-4746Jouryq [id number] Kierra NATARAJAN 1990 Date Provider Department Center 07/21/2025 ROHIT TIRADO [facility] Fallen Timbe Family History Problem Relation Age of Onset Anxiety disorder Mother Arthritis Mother Depression Mother Alcohol abuse Father Cancer Father Alcohol abuse Sister Anxiety disorder Sister Arthritis Mother's Sister Arthritis Mother's Brother Arthritis Mother's Sister Family Status - Relation Status Age at Mother Father Sister Mother's Sister Mother's Brother Mother's SisterNormalUniversity of Paris Regional Medical CenterOrders Onlyon 07-20-2025 Orders [id number] Kierra NATARAJAN 1990 Date Provider Department Center 07/20/2025 ROHIT TIRADO PRIM Fallen Timbe Family History Problem Relation Age of Onset Anxiety disorder Mother Arthritis Mother Depression Mother Alcohol abuse Father Cancer Father Alcohol abuse Sister Anxiety disorder Sister Arthritis Mother's Sister Arthritis Mother's Brother Arthritis Mother's Sister Family Status - Relation Status Age at Mother Father Sister Mother's Sister Mother's Brother Mother's SisterNormalUniversMount St. Mary HospitalResults Follow-Upon 13-83-9236Frdcmri Follow-[id number] Kierra NATARAJAN 1990 F Date Provider Department Center 07/17/2025 ROHIT TIRADO [facility] Mona Collins Family History Problem Relation Age of Onset Anxiety disorder Mother Arthritis Mother Depression Mother Alcohol abuse Father Cancer Father Alcohol abuse Sister Anxiety disorder Sister Arthritis Mother's Sister Arthritis Mother's Brother Arthritis Mother's Sister Family Status - Relation Status Age at Mother Father Sister Mother's Sister Mother's Brother Mother's SisterNormalUniversity [facility] HospitalCBC WITH AUTO DIFFERENTIALon 81-13-1349Tfisijvpy (Bld) [#/Vol]0.04 10*3/uLNormal0.00-0.20 [facility] NorthComment on above:Performed By: #### [id number] #### [facility] ([facility]) [address] [place], [place] [address]Rfngsjvta/100 WBC (Bld)0.6 %Normal0.0-1.0UnMercy Health St. Rita's Medical CenterComment on above:Performed By: #### [id number] #### [facility] ([facility]) [address] [place], [place] [address]Mlalvplikzr (Bld) [#/Vol]0.17 10*3/uLNormal0.00-0.50UnMercy Health St. Rita's Medical CenterComment on above:Performed By: #### [id number] #### [facility] ([facility]) [address] [place], [place] [address]Vvcycsyogfs/100 WBC (Bld)2.4 %Normal0.0-6.0UnMercy Health St. Rita's Medical CenterComment on above:Performed By: #### [id number] #### [facility] (BEAKER) [address] [place] [place] [address]Kecijqwinis distribution width (RBC) [Ratio]13.3 %Normal 11.5-15.0UnMercy Health St. Rita's Medical CenterComment on above:Performed By: #### [id number] #### [facility] ([facility]) [address] [place] [address]WSLYATYYJST MEAN CORPUSCULAR HEMOGLOBIN CONCENTRATION (G/DL) BY JVHGBTPAN69.1 g/iOAtqqtg52.0-35.0UnMercy Health St. Rita's Medical CenterComment on above:Performed By: #### [id number] #### [facility] ([facility]) [address] [place], [place] [address]Pvodocxbaw (Bld) [Volume fraction]41.4 %Bizfxp15.0-45.0 [facility] NorthComment on above:Performed By: #### [id number] #### [facility] ([facility]) [address] [place], [place] [address]Nqojebskxp (Bld) [Mass/Vol]13.7 g/qLAwctqb11.0-15.0UnMercy Health St. Rita's Medical CenterComment on above:Performed By: #### [id number] #### [facility] ([facility]) [address] [place], [place] [address]Nkpumdty granulocytes (Bld) [#/Vol]0.03 10*3/uLNormal0.00-0.20 [facility] NorthComment on above:Performed By: #### [id number] #### [facility] ([facility]) [address] CENTERShaun [place], [place] [address]Eyziwfzi granulocytes/100 WBC (Bld)0.4 %Normal0.0-1.0UnMercy Health St. Rita's Medical CenterComment on above:Performed By: #### [id number] #### [facility] ([facility]) [address] [place], [place] [address]Ohllnwjbpjp (Bld) [#/Vol]1.42 10*3/uLNormal1.20-4.00UnMercy Health St. Rita's Medical CenterComment on above:Performed By: #### [id number] #### [facility] ([facility]) [address] [place] [address]Dmozuistmqe/100 WBC (Bld)19.9 %Low20.0-45.0UnMercy Health St. Rita's Medical CenterComment on above:Performed By: #### [id number] #### [facility] ([facility]) [address] [place] [address]ZFM (RBC) [Entitic mass]28.9 fnIrwall71.0-33.0UnMercy Health St. Rita's Medical CenterComment on above:Performed By: #### [id number] #### [facility] ([facility]) [address] [place], [place] [address]FPV (RBC) [Entitic vol]87.3 gYIzfotz97.0-98.0UnMercy Health St. Rita's Medical CenterComment on above:Performed By: #### [id number] #### [facility] ([facility]) [address] [place], [place] [address]Svbjlwrmk (Bld) [#/Vol]0.49 10*3/uLNormal0.10-1.00UnMercy Health St. Rita's Medical CenterComment on above:Performed By: #### [id number] #### [facility] ([facility]) [address] [place], [place] [address]Hrkhekoko/100 WBC (Bld)6.9 %Normal5.0-12.0UnMercy Health St. Rita's Medical CenterComment on above:Performed By: #### [id number] #### [facility] ([facility]) [address] [place] [place], [place] [address]Gpamrxwdkiz (Bld) [#/Vol]4.99 10*3/uLNormal1.60-7.60UnMercy Health St. Rita's Medical CenterComment on above:Performed By: #### [id number] #### [facility] ([facility]) [address] [place], [place] [address]Xsfpdduclkx/100 WBC (Bld)69.8 %Depspk06.0-72.0UnMercy Health St. Rita's Medical CenterComment on above:Performed By: #### [id number] #### [facility] ([facility]) [address] [address]FACX (PER 100 WBCS) BY AUTOMATED COUNT0.0 %Ezvuzg5FzasvbzkvhMercy Health St. Rita's Medical CenterComment on above:Performed By: #### [id number] #### [facility] ([facility]) [address] [address]UCJXQXXAK (10*3/UL) IN BLOOD AUTOMATED YGESB824 10*3/uLNormal 150-400UnMercy Health St. Rita's Medical CenterComment on above:Performed By: #### [id number] #### [facility] ([facility]) [address] [address]QPK (Bld) [#/Vol]4.74 10*6/uLNormal3.80-5.00UnMercy Health St. Rita's Medical CenterComment on above:Performed By: #### [id number] #### [facility] ([facility]) [address] [address]QFV (Bld) [#/Vol]7.14 10*3/uLNormal4.00-10.60UnMercy Health St. Rita's Medical CenterComment on above:Performed By: #### [id number] #### [facility] ([facility]) [address] [address]LDMPWRNWNYZTY METABOLIC PANELon 55-28-6483Yazbaos [Mass/Vol]4.3 g/dLNormal3.5-5.7UnMercy Health St. Rita's Medical CenterComment on above:Performed By: #### [id number] ####[facility] ([facility])[address] [place] [address] ALP [Catalytic activity/Vol]58 U/RSolqkw76-581BppvlsqcieMercy Health St. Rita's Medical CenterComment on above:Performed By: #### [id number] ####[facility] ([facility])[address] [place] [address]HMR [Catalytic activity/Vol]14 U/L Normal7-52UnMercy Health St. Rita's Medical CenterComment on above:Performed By: #### [id number] ####[facility] ([facility])[address] [place], [place] [address]Dmigs gap [Moles/Vol]10 mmol/LNormal7-20UnMercy Health St. Rita's Medical CenterComment on above:Performed By: #### [id number] ####[facility] ([facility])[address] [place], [place] [address]YPC [Catalytic activity/Vol]17 U/DJfxqec93-97EudtjkkmejMercy Health St. Rita's Medical CenterComment on above:Performed By: #### [id number] ####[facility] ([facility])[address] [place], [place] [address]Zlngilxjr [Mass/Vol]0.4 mg/dL Normal0.3-1.0UnMercy Health St. Rita's Medical CenterComment on above:Performed By: #### [id number] ####[facility] ([facility])[address] [place] [address] Calcium [Mass/Vol]9.1 mg/dLNormal8.6-10.3UnMercy Health St. [facility]'s [facility] Center Comment on above:Performed By: #### [id number] ####[facility] ([facility])[address] [place], [place] [address]Cbszdzbu [Moles/Vol]106 mmol/UXoyqqp12-491 [facility] NorthComment on above:Performed By: #### [id number] ####[facility] ([facility])[address] [place], [place] [address]MR0 [Moles/Vol] 26 mmol/NKmyaaw56-26TvrbuywuhaMercy Health St. Rita's Medical CenterComment on above: Performed By: #### [id number] ####[facility] ([facility])[address] [place], [place] [address]Qzpolemibh [Mass/Vol]0.95 mg/dLNormal0.60-1.20UnMercy Health St. Rita's Medical CenterComment on above:Performed By: #### [id number] ####[facility] ([facility])[address] [place], [place] [address]QVUSFQZXPJ FILTRATION RATE ML/MIN/1.73 SQ M.UQZZTSXUM40.1 mL/min/1.73m*2Normal>60.0UnMercy Health St[address] [facility]'s [facility] Comment on above:Result Comment: The [facility]???s estimated glomerular filtration rate (eGFR) will [...] anyone group of individuals.Performed By: #### [id number] ####[facility] ([facility])[address] [place], [place] [address]Xcygjos [Mass/Vol]89 mg/fBVlzvxw96-223DmbtekawivMercy Health St. Rita's Medical CenterComment on above:Performed By: #### [id number] ####[facility] ([facility])[address] [place], [place] [address]Xxudairim [Moles/Vol]4.2 mmol/LNormal3.5-5.1UnMercy Health St. Rita's Medical CenterComment on above:Performed By: #### [id number] ####[facility] ([facility])[address] [place], [place] [address]Mtaebvb [Mass/Vol]7.0 g/dLNormal 6.0-8.3UnMercy Health St. Rita's Medical CenterComment on above:Performed By: #### [id number] ####[facility] ([facility])[address] [place], [place] [address]Zmcupl [Moles/Vol]138 mmol/KIjnuth888-185UzyljtcwlfMercy Health St. Rita's Medical CenterComment on above:Performed By: #### [id number] ####[facility] ([facility])[address] [place], [place] [address]Mlwt nitrogen [Mass/Vol]16 mg/dLNormal7-25UnMercy Health St. Rita's Medical CenterComment on above:Performed By: #### [id number] ####[facility] ([facility])[address] [place], [place] [address]QNAE NITROGEN/CREATININE (MASS RATIO) IN SER/PLAS16.8NormalUniversMount St. Mary HospitalComuniversity of michigan health on above: Performed By: #### [id number] ####[facility] ([facility])[address] [place], [place] [address]TFCGB PANELon 65-25-2318IPQT/HDL5.3 mg/dLNormalUniversMount St. Mary HospitalComment on above:Performed By: #### [id number] ####[facility] ([facility])[address] [place], [place] [address]Ssdwdtjvylr [Mass/Vol]195 mg/dLNormal 120-200UnMercy Health St. Rita's Medical CenterComment on above:Performed By: #### [id number] ####[facility] ([facility])[address] [place], [place] [address]Gbapdureu [Mass/Vol]97 mg/dLNormal<150UnMercy Health St. Rita's Medical CenterComment on above: Result Comment: TRIGLYCERIDE REFERENCE RANGE: 20 YEARS AND OLDER CARDIOVASCULAR RISK LESS THAN 150 mg/dL LOW RISK 150 TO 199 mg/dL BORDERLINE RISK 200 mg/dL AND GREATER HIGH RISKPerformed By: #### [id number] ####[facility] ([facility])[address] [place], [place] [address]Ynjmrmmef [Mass/Vol]139 mg/dLNormal 0-160UnMercy Health St. Rita's Medical CenterComment on above:Performed By: #### [id number] ####[facility] ([facility])[address] [place], [place] [address]Qfrzyfjql [Mass/Vol]37 mg/qKBpogit83-38CyfuixnomjMercy Health St. Rita's Medical CenterComment on above:Performed By: #### [id number] ####[facility] ([facility])[address] [place], [place] [address]YCK HDL CHOL. (LDL+VLDL)[address]Univers[address] Mary HospitalComment on above:Performed By: #### [id number] ####[facility] ([facility])[address] [place], [place] [address]STMAI VLDL-C19 mg/dLNormal0-40 [facility] NorthComment on above:Performed By: #### [id number] ####[facility] ([facility])[address] [facility] [place] [address]FJPBCGNMNko 41-09-1416Aweislpro [Mass/Vol]2.2 mg/dLNormal1.9-2.7UnMercy Health St. Rita's Medical CenterComment on above:Performed By: #### [id number] #### [facility] (AKER) [address] [place], [place] [address]Jtuosg Visiton 36-42-8313Kfpvcu-up [id number] Kierra NATARAJAN 1990 F Date Provider Department Center 07/14/2025 ROHIT TIRADO [facility] Fall [place] Family History Problem Relation Age of Onset Anxiety disorder Mother Arthritis Mother Depression Mother Alcohol abuse Father Cancer Father Alcohol abuse Sister Anxiety disorder Sister Arthritis Mother's Sister Arthritis Mother's Brother Arthritis Mother's Sister Family Status - Relation Status Age at Mother Father Sister Mother's Sister Mother's Brother Mother's Sister Level of Service:80735 [place] PERIODIC PREVENTIVE MED EST PATIENT 18-39 YRS Reason for Visit and Comments: Anxiety [9]NormalSelect Medical Specialty Hospital - Cincinnati NorthRefillon 94-45-7377Ihecnt [id number] Kierra NATARAJAN 1990 F Date Provider Department [...] for Visit and Comments: Med Change Request [411]NormalSelect Medical Specialty Hospital - [facility] NorthTSH3 REFLEX TO FT4on 25-55-0706ZIELUKDCCLR (MIU/L) IN SER/PLAS BY DETECTION LIMIT <= 0.05 MIU/L 1.95 mIU/LNormal0.34-5.60[facility] NorthComment on above: Performed By: #### [id number] #### [facility] (BE[facility]) [address] [address]AGWIOKB D 25 HYDROXYon 22-34-6484GRXJYNXYF (25 [place] VITAMIN D3) (NG/ML) IN SER/PLAS38.2 ng/nEYfoghi49.0-80.0UnMercy Health St. [facility]'s [facility] Comment on above:Result Comment: >80.0 Toxicity possiblePerformed By: #### [id number] #### [facility] ([facility]) [address] [address]NXYNfs 52-92-3688WDIYNzpudy Visit (NHFB) KIERRA NATARAJAN ([id number]) 1990 F Date Time Provider Department 07/05/25 1:00 PM AVERY GAINES [facility] During your visit today, we recorded the [...] Follow-up: 3 months. REFERRING PHYSICIAN: Maggy Jacobo [address] [facility] [address] PCP: Rohit Leos [address] [facility] [address] [place] [address] Accompanied by: Self CC: Headache, Migraine, Facial [...] the time. 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] Other Visit Diagnosis:Chronic migraine without aura, intractable, without status migrainosus [G43.719] Allergies As of Date: 06/02/2025 Noted Allergy Reaction DEXTROMETHORPHAN-GUAIFENESIN 04/10/2023 16 - Unknown Date Reviewed: 04/13/2025 Reviewed by: Maggy Jacobo APRN.SENIOR FUNCTIONAL ANALYST - Fully Assessed Prescriptions as of 06/02/2025 [...] tablet Take 10 mg by mouth as needed.NormalFisher-Titus Medical CenterOffice Visiton 11-58-7999Xkmzwj-up [id number] Kierra NATARAJAN 1990 F Date Provider Department [...] Sister Mother's Brother Mother's Sister Level of Service:30606 [place] OFFICE/OUTPATIENT ESTABLISHED MOD MDM 30 MIN Reason for Visit and Comments: Follow-up [510527] - Follow up for nasal issues and trigeminal neuralgiaNormal [facility] NorthRefillon [id number] Kierra NATARAJAN 1990 F Date Provider Department [...] Reason for Visit and Comments: Med Refill [691207]NormalUnMercy Health St. 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] Other Visit Diagnosis:Chronic migraine without aura, intractable, without status migrainosus [G43.719] Allergies As of Date: 05/05/2025 Noted Allergy Reaction DEXTROMETHORPHAN-GUAIFENESIN 04/10/2023 16 - Unknown Date Reviewed: 04/13/2025 Reviewed by: Maggy Jacobo APRN.SENIOR FUNCTIONAL ANALYST - Fully Assessed Prescriptions as of 05/05/2025 [...] tablet Take 10 mg by mouth as needed.NormalSalem City HospitalHERAPYon 88-73-5416GXLIRDVJLEJ/PT/Speech Visit (PEG) KIERRA NATARAJAN ([id number]) 1990 F Date Time Provider Department 04/13/25 12:15 PM JENNIFER LOPEZ Date Time Provider Department Center 04/13/2025 12:15 PM [id number] LOPEZ Reason for Visit: PT Eval [747] Patient Education [91] 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 Drum Straightener: Addendum Therapy (PT/OT/Speech/Resp) ID: [id number] 04/13/2025 4:22 PM Author: JENNIFER LOPEZ Signed by JENNIFER LOPEZ PT on 04/13/2025 at 4:22 PM * * * This document replaces document [id number] * * * Document text: Program_ID:[id number] Access Code: [email or web address] URL: [email or web address] Date: 04-13-2025 Prepared By: Jennifer Lopez Program [...] x weekly - sets - reps Normal Fisher-Titus Medical CenterTHERAPY NTon 60-45-5012JINDUGE NTHNO ID: [id number] Author: JENNIFER LOPEZ, PT Service: ? Author Type: Physical Therapist Type: Therapy (PT/OT/Speech/Resp) Filed: 04/13/2025 16:22 Note Text: Program_ID:[id number] Access Code: [email or web address] URL: [email or web address] Date: 04-13-2025 Prepared By: Jennifer Lopez Program [...] daily - x weekly - sets - repsNormalCMetroHealth Parma Medical Center NOTEon 01-75-3117DU NOTEHNO ID: [id number] Author: THOMAS ESPARZA RN Service: Emergency Medicine Author Type: Registered Nurse Type: ED Notes Filed: 03/30/2025 15:57 Note Text: pt states the pressure in my head/face is totally gone, I feel so good. Normal [facility] NOTEHNO ID: [id number] Author: THOMAS ESPARZA RN Service: Emergency Medicine Author Type: Registered Nurse Type: ED Notes Filed: 03/30/2025 14:43 Note Text: steadily ambulated to room, states this is her trigeminal neuralgia ALTAMIRANO flare up. No trauma or feversNormalCMetroHealth Parma Medical Center PROV NOTEon 77-67-5134QU PROV NOTEHNO ID: [id number] Author: ERMELINDA RODRIGUES MD Service: Emergency Medicine [...] HANDP - Bacterial Meningitis (more content not included)...NormalFisher-Titus Medical CenterRefillon [id number] Kierra NATARAJAN 1990 F Date Provider Department Center 03/30/2025 Sylvia7-PRESTON TOVAR [facility] Mona Collins Family History Problem Relation Age of Onset Anxiety disorder Mother Arthritis Mother Depression Mother Alcohol abuse Father Cancer Father Alcohol abuse Sister Anxiety disorder Sister Arthritis Mother's Sister Arthritis Mother's Brother Arthritis Mother's Sister Family Status - Relation Status Age at Mother Father Sister Mother's Sister Mother's Brother Mother's Sister Reason for Visit and Comments: Med Refill [420738]NormalSelect Medical Specialty Hospital - [facility] NorthCNOVon 03-15-2025 CNOVOffice Visit ([facility]) KIERRA NATARAJAN ([id number]) 1990 F Date Time Provider Department 03/15/25 11:30 AM MAGGY JACOBO [facility] During your visit today, we [...] for , so would like to limit jail medications ideally at this time. She will [...] cause of pain. - Currently using a lifeguard for suspected TMJ-related issues. - Denies current [...] between episodes: Yes Triggers: (more content not included)...NormalSouth[facility] MAMMOGRAM DIAGNOSTIC TOMOSYNTHESIS BILATERALon 12-30-0276SD MAMMOGRAM DIAGNOSTIC TOMOSYNTHESIS BILATERALThis is a summary [...] IS VERY IMPORTANT TO YOUR HEALTH. THE [employer] GUIDELINES RECOMMEND THATWOMEN 40 YEARS OF AGE AND OLDER SHOULD HAVE A MAMMOGRAM EVERY YEAR. A REMINDER LETTER WILL BE SENT AT THE APPROPRIATE TIME. ELECTRONICALLY SIGNED BY: Bonilla Ramos M.D.NormalNot AvailableComment on above: Order Comment: U/S if indicatedBI US BREAST LIMITED RIGHTon [id number] US BREAST LIMITED RIGHTThis is a summary [...] ELECTRONICALLY SIGNED BY: Bonilla Ramos M.D.NormalNot AvailableTelemedicineon [id number] Kierra NATARAJAN 1990 F Date Provider Department Center 12/27/2024 [id number] COKER [facility] Mona Collins Family History Problem Relation Age of Onset Anxiety disorder Mother Arthritis Mother Depression Mother Alcohol abuse Father Cancer Father Alcohol abuse Sister Anxiety disorder Sister Arthritis Mother's Sister Arthritis Mother's Brother Arthritis Mother's Sister Family Status - Relation Status Age at Mother Father Sister Mother's Sister Mother's Brother Mother's Sister Level of Service:78236 [place] OFFICE/OUTPATIENT ESTABLISHED LOW [facility] 20 MIN Reason for Visit and Comments: Flu Symptoms [505] - Patient presents to be seen due to body aches, migraine, congestion. She states symptoms started last Friday.[facility] CenterMR [facility] WO and W contrast Todd 12-14-2024* [...] imaging without and with gadolinium. Intracranial 3D sixt-sc-cdhmzg MRA with post-processing performed at the [facility] and 2D multiplanar and 3D maximum intensity [...] suggest previous brain parenchymal hemorrhage within the xjncu-xg-kekq. Mass Lesion/ Mass Effect: No evidence of an intracranial mass or extra-axial fluid collection. No significant mass effect. Chronic Change: The white matter is within normal limits of signal intensity for age. Parenchyma: No significant volume loss for age. The brain parenchyma within the hdguc-kc-kzwf is otherwise within normal limits of signal [...] at the [facility]. (4:35). DIVISION OF RADIOLOGYProvider, [facility] [place] - 12/14/2024 * * *Final Report* * * DATE OF EXAM: Dec 14 2024 11:22AM [facility] 0295 - MRI BRAIN WO/W IVCON / PROCEDURE REASON: Right trigeminal neuralgia * * * * Physician Interpretation * * * * EXAMINATION: MRA BRAIN WO IVCON, MRI BRAIN WO/W IVCON CLINICAL HISTORY: Right trigeminal neuralgia. TECHNIQUE: Upper cranial nerve protocol imaging without and with gadolinium. Intracranial 3D beln-em-mmjqpd MRA with post-processing performed at the modality [...] suggest previous brain parenchymal hemorrhage within the tkryi-lw-uryb. Mass Lesion/ Mass Effect: No evidence of an intracranial mass or extra-axial fluid collection. No significant mass effect. Chronic Change: The white matter is within normal limits of signal intensity for age. Parenchyma: No significant volume loss for age. 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 Cuff Setter Lockstitch: PSCB Transcribe Date/Time: Dec 14 2024 11:24A Dictated by : EVELIA RUBIN MD This examination was interpreted and the report reviewed and electronically signed by: EVELIA RUBIN MD on Dec 14 2024 11:34AM EST [facility] IV[facility]on [id number] BRAIN WO IVCON* * *Final Report* * [...] imaging without and with gadolinium. Intracranial 3D psza-md-smhium MRA with post-processing performed at the modality [...] suggest previous brain parenchymal hemorrhage within the ativn-yv-axhm. Mass Lesion/ Mass Effect: No evidence of an intracranial mass or extra-axial fluid collection. No significant mass effect. Chronic Change: The white matter is within normal limits of signal intensity for age. Parenchyma: No significant volume loss for age. 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 Cuff Setter Lockstitch: PSCB Transcribe Date/Time: Dec 14 2024 11:24A Dictated by : EVELIA RUBIN MD This examination was interpreted and the report reviewed and electronically signed by: EVELIA RUBIN MD on Dec 14 2024 11:34AM EST [id number]_IDCSIACNNormalProvidence Hospital Head vessels WO contraston 12-14-2024* * [...] imaging without and with gadolinium. Intracranial 3D ymlc-xs-xpxjfo MRA with post-processing performed at the modality [...] suggest previous brain parenchymal hemorrhage within the ylgxv-qc-jsom. Mass Lesion/ Mass Effect: No evidence of an intracranial mass or extra-axial fluid collection. No significant mass effect. Chronic Change: The white matter is within normal limits of signal intensity for age. Parenchyma: No significant volume loss for age. The brain parenchyma within the zbakn-gb-cnqh is otherwise within normal limits of signal [...] at the [facility]. (4:35). DIVISION OF RADIOLOGYProvider, [facility] [place] - 12/14/2024 * * *Final Report* * [...] imaging without and with gadolinium. Intracranial 3D ojss-xq-wxndds MRA with post-processing performed at the modality [...] suggest previous brain parenchymal hemorrhage within the rcshd-zk-slih. Mass Lesion/ Mass Effect: No evidence of an intracranial mass or extra-axial fluid collection. No significant mass effect. Chronic Change: The white matter is within normal limits of signal intensity for age. Parenchyma: No significant volume loss for age. 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 Cuff Setter Lockstitch: PSCB Transcribe Date/Time: Dec 14 2024 11:24A Dictated by : EVELIA RUBIN MD This examination was interpreted and the report reviewed and electronically signed by: EVELIA RUBIN MD on Dec 14 2024 11:34AM [facility]W IVCONon [id number] BRAIN WO/W IVCON* * *Final Report* * * DATE OF EXAM: Dec 14 2024 11:22AM [facility] 0295 - MRI BRAIN WO/W IVCON / PROCEDURE REASON: Right trigeminal neuralgia * * * * Physician Interpretation * * * * EXAMINATION: MRA BRAIN WO IVCON, MRI BRAIN WO/W IVCON CLINICAL HISTORY: Right trigeminal neuralgia. TECHNIQUE: Upper cranial nerve protocol imaging without and with gadolinium. Intracranial 3D cxvm-kr-mieaku MRA with post-processing performed at the modality [...] suggest previous brain parenchymal hemorrhage within the drucv-wm-nhqp. Mass Lesion/ Mass Effect: No evidence of an intracranial mass or extra-axial fluid collection. No significant mass effect. Chronic Change: The white matter is within normal limits of signal intensity for age. Parenchyma: No significant volume loss for age. 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 Cuff Setter Lockstitch: [facility] Transcribe Date/Time: Dec 14 2024 11:24A Dictated by : EVELIA RUBIN MD This examination was interpreted and the report reviewed and electronically signed by: EVELIA RUBIN MD on Dec 14 2024 11:34AM EST [id number]_IDCSIACNNormalKettering Health Washington Township Panel Informationon 60-15-8101PNGVAADVZM: No acute brain findings. No mass effect or abnormal brain enhancement. No abnormal cranial nerve enhancement or mechanical impingement. No evidence for an infiltrative process at the skull base. Minor ethmoid inflammatory mucosal change. Normally patent intracranial arterial vasculature. No evidence for vascular malformation or aneurysm. 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 Cuff Setter Lockstitch: DIOGO Transcribe Date/Time: Dec 14 2024 11:24A Dictated by : EVELIA RUBIN MD This examination was interpreted and the report reviewed and electronically signed by: EVELIA RUBIN MD on Dec 14 2024 11:34AM [facility] DIVISION OF RADIOLOGYRadiology Study observation (narrative)[facility] Panel InformationOrdered By: Ccf Provider on 58-90-9947Djhwboxor ClinicCNOVon 29-43-9766NGOMLinzuc Visit ([facility]) KIERRA NATARAJAN ([id number]) 1990 F Date Time Provider Department 11/23/24 11:20 AM VINCENZO MUKHERJEE [facility] During your visit today, we [...] as cause vs idiopathi (more content not included)...Normal[facility]36on [id number] to return callNormalUniversity [facility]29on [id number] by: ROHIT LEOS on: 11/02/2024 11:31 AM Modules accepted: OrdersNormalUniversity [facility]36on 11-02-2024 36Her calcium was low. Most common cause of that is vit D def. Recommend start D3 4000 U daily and then in 2 months repeating calcium level with Vit D and Mag level. We can order a CXR.[facility]36Patient updated. She is wondering how lab results are. Scanned into Media. Also states she has been experiencing a constant dull pain in her back. Requesting chest xray to make sure her lungs are ok.[facility]36on 89-76-523279Zmsd the flonase. Add some nasal saline spray or vasoline to see if this helps the nose bleeds.[facility]36That sounds good. Yes, stop flonase and see ENT.[facility]36Patient called back and states the oxcabazepine seems to be working for the most part however her lymph nodes are still a little swollen. She would like to stay on the same dose instead of increasing it because of the side effects. Patient will discuss meds with docs at [facility] on 11/23/24. She also sees [facility] ENT on Thursday 11/01. She would also like to stop the flonase because it is giving her nose bleeds. Please adviseNormalUniversity of [address] asking pt to call backNormalUniversity of [address] informing ptNormalUniversity of [address] 10-28-2024 36Good. Lymphadenopathy improving with switch to trileptal? Does she feel like its covering the trigeminal neuralgia? Consider increasing the trileptal till neurology apptNormalUniversity of [facility]36Pt called and stated that her right side seems to be more numb and drooping more. She states she has been trying to get an appointment with [facility] but has not heard back from them.She did state that her nerve pain has gotten better, but it comes and goes still. She denies having chest pain., SOB other than what she has been experiencing and not having heart palpitations. I was able to call [facility] and get her scheduled for an Appointment with Dr Mukherjee in [place], [place]. Pt was notified of appt and given all information for appt. Dr. Mukherjee November 23 at 11:20 [address] [place] [address] [phone] of [facility] [address] cancelled the appointment that she has with you today, She received a call about an opening at the [facility] for this afternoon in Neurology; that she has been waiting for. She will reschedule at a later time. Pt wants to make sure you know why she has cancelled today. FYINormalUniversMount St. Mary HospitalTephone [id number] Kierra NATARAJAN 1990 F Date Provider Department [...] Sister Reason for Visit and Comments: Referral [825][place] [address]on 83-92-821223Zk the 600 mg BID is similar to the tegretol level that she is currently on.[address] 78-94-366516Njsgrdd called and said she picked up her Trileptal. She thought it was supposed to be 300mg 2 times a day instead of 600mg 1 time a day.[facility] [id number] Kierra NATARAJAN 1990 F Date Provider Department Center 10/15/2024 ROHIT TIRADO [facility] Fallen Timbe Family History Problem Relation Age of Onset Anxiety disorder Mother Arthritis Mother Depression Mother Alcohol abuse Father Cancer Father Alcohol abuse Sister Anxiety disorder Sister Arthritis Mother's Sister Arthritis Mother's Brother Arthritis Mother's Sister Family Status - Relation Status Age at Mother Father Sister Mother's Sister Mother's Brother Mother's SisterNormalUniversMount St. Mary HospitalOffice Visiton 27-75-2711Oupscj-up [id number] Kierra NATARAJAN 1990 F Date Provider Department [...] Sister Mother's Brother Mother's Sister Level of Service:44136 [place] OFFICE/OUTPATIENT ESTABLISHED MOD [facility] 30 MIN Reason for Visit and Comments: Follow-up [248578] - Patient has first consult with hematology tomorrow with Dr. Ariza at [facility] Patent still has swollen lymphoneds. ENT prescribed antibiotic, last dose today. [facility]-2160[place] [address] CT Scan Report Signed Patient: KIERRA NATARAJAN MR#: [id number] : 1990 Acct:[id number] Age/Sex: 33 / F ADM Date: 10/06/24 Loc: CT Attending Dr: Sudheer Chacon M.D. Ordering Physician: Sudheer Chacon M.D. Date of Service: 10/06/24 Procedure(s): CT soft tissue neck w con Accession Number(s): [id number] cc: Physician,Non-Staff Alexi [place] [address] Patient Name: KIERRA NATARAJAN MRN: [id number] date: 1990 Sex: F Assigned Patient Location: CT Current Patient Location: Accession/Order Number: [id number] Exam Date: 10/06/2024 14:20 Report Date: 10/07/2024 [...] M.D. Signed By: 10/07/24639 DD/ 7 TD/TT: Cuff Setter Lockstitch:TBHRadiology, Radiologist, MD - 10/07/2024 [place] [address] CT Scan Report Signed Patient: KIERRA NATARAJAN MR#: [id number] : 1990 Acct:[id number] Age/Sex: 33 / F ADM Date: 10/06/24 Loc: CT Attending Dr: Sudheer Chacon M.D. Ordering Physician: Sudheer Chacon M.D. Date of Service: 10/06/24 Procedure(s): CT soft tissue neck w con Accession Number(s): [id number] cc: Physician,Non-Staff Alexi [place] [address] Patient Name: KIERRA NATARAJAN MRN: [facility]:[id number] date: 1990 Sex: F Assigned Patient Location: CT Current Patient Location: Accession/Order Number: [id number] Exam Date: 10/06/2024 14:20 Report Date: 10/07/2024 [...] M.D. Signed By: 10/07/24639 DD/ 7 TD/TT: Cuff Setter Lockstitch: NOMAlireza HealthcareRadiology Study observation (narrative)NOM HealthcareCT Neck W contrast IVOrdered By: Radiologist Radiology on 91-38-6806MNKT Healthcare Work Phone: Office Visiton [phone]-up [id number] Kierra NATARAJAN 1990 F Date Provider Department Center 10/06/2024 05665-GYVMHACE COKER [facility] Mona Collins Family History Problem Relation Age of Onset Anxiety disorder Mother Arthritis Mother Depression Mother Alcohol abuse Father Cancer Father Alcohol abuse Sister Anxiety disorder Sister Arthritis Mother's Sister Arthritis Mother's Brother Arthritis Mother's Sister Family Status - Relation Status Age at Mother Father Sister Mother's Sister Mother's Brother Mother's Sister Level of Service:49656 [place] OFFICE/OUTPATIENT ESTABLISHED LOW [facility] 20 MIN Reason for Visit and Comments: would like hemotology referral [Other] - Patient was seen by ent and they advised that she get a hematology oncology referral due to lymph nodes swelling on head and neck. ENT questioned finding on MRI of headNormalUniversity of [facility] w/ Auto Diffon 68-75-1990Qkvecrefl/100 WBC (Bld)0.3 %Normal0.0-2.0NOMS HealthcareComment on above:Performed By: #### [id number] #### [place] [facility] [address] [place] [address] 09613Eslnjnkyr/Leukocytes Auto (Bld) [Pure # fraction]0.0 E9/LNormal 0.0-0.2FPremier Health Miami Valley Hospital NorthComment on above:Performed By: #### [id number] #### [facility] [address] [place] [address] 40044Hjgvqbfuhgk (Bld) [#/Vol]0.2 E9/LNormal0.0-0.5FPremier Health Miami Valley Hospital NorthComment on above:Performed By: #### [id number] #### [facility] [address] [place] [address] 13993Sbxeopwdfpm/100 WBC (Bld)4.5 %Normal0.0-8.0[facility] Memorial HospitalComment on above:Performed By: #### [id number] #### [facility] [address] [place] [address] 36253Vsgcodapmot distribution width (RBC) [Ratio]13.3 %Normal 10.9-14.2NOMS HealthcareComment on above:Performed By: #### [id number] #### [facility] [address] [place] [address] 61875Jsejaqwchf (Bld) [Volume fraction]39.3 %Yliqcy65.0-46.0NOMS HealthcareComment on above:Performed By: #### [id number] #### [facility] [address] [place] [address] 63163Zyvmsspidh (Bld) [Mass/Vol]13.7 g/oSDckofv02.0-16.0[facility] Memorial HospitalComment on above:Performed By: #### [id number] #### [facility] [address] [place] [address] 04019Asdzqjdovhv (Bld) [#/Vol]0.8 E9/LLow1.0-4.0[facility] Memorial HospitalComment on above:Performed By: #### [id number] #### [place] [facility] [address] [place] [address] 77808Oioibxjzomi/100 WBC (Bld)14.6 %Rrozuc44.0-50.0NOMS Healthcare Comment on above:Performed By: #### [id number] #### [facility] [address] [place] [address] 65080CGW (RBC) [Entitic mass]29.8 wsXakvdu16.0-34.0[facility] Memorial HospitalComment on above:Performed By: #### [id number] #### [facility] [address] [place] [address] 78875ZJTM (RBC) [Mass/Vol]34.8 g/jFLoxtoy81.4-36.0[facility] HospitalComment on above:Performed By: #### [id number] #### [facility] [address] [place] [address] 79751JUE (RBC) [Entitic vol]85.7 rOPlzhii86.0-100.0[facility] HospitalComment on above:Performed By: #### [id number] #### [facility] [address] [place] [address] 49773Chrmsanvq (Bld) [#/Vol]0.4 E9/LNormal0.2-1.0[facility] HospitalComment on above:Performed By: #### [id number] #### [facility] [address] [place] [address] 76724Kctzkyyzqgf (Bld) [#/Vol]3.9 E9/LNormal2.0-7.5FPremier Health Miami Valley Hospital NorthComment on above:Performed By: #### [id number] #### [facility] [address] [place] [address] 81132Orpzzlmqvci/100 WBC (Bld)72.6 %Emsuzu64.0-75.0N[facility] Healthcare Comment on above:Performed By: #### [id number] #### [facility] [address] [place] [address] 82451Sldpzlbl mean volume (Bld) [Entitic vol]8.8 fLNormal6.4-10.8 [facility] HealthcareComment on above:Performed By: #### [id number] #### [facility] [address] [place] [address] 68333Cxtnhkoab (Bld) [#/Vol]231.0 E9/AKkzorr026.0-500.0[facility] Memorial HospitalComment on above:Performed By: #### [id number] #### [facility] [address] [place] [address] 52339YHN (Bld) [#/Vol]4.6 E12/LNormal4.3-5.9[facility] HospitalComment on above:Performed By: #### [id number] #### [facility] [address] [place] [address] 31773HOG corrected for nucl RBC Auto (Bld) [#/Vol]5.4 E9/LNormal 4.0-11.0[facility] Memorial HospitalComment on above:Performed By: #### [id number] #### [facility] [address] [place] [address] 53779FAIUSQFVSJqyldre By: SYSTEM SYSTEM on 10-74-8077ZDQ [Mass/Vol] 0.7 mg/dLNormal<=1.9mg/dLRemisol ChemCRPon 50-63-8577UNY [Mass/Vol]0.7 mg/dL Normal<=1.9[facility] Memorial HospitalComment on above:Performed By: #### [id number] #### [facility] [address] [place] [address] 70648UOFD CBC W/ AUTO DIFFon 31-62-1771DIFWFTXDCXN/100 LEUKOCYTES:NFR:PT:BLD:QN:AUTOMATED COUNT4.5 %0.0 - 8.0 %[facility] EOSINOPHILS:NCNC:PT:BLD:QN:0.2NOMS [facility] BASOPHILS/LEUKOCYTES:NFR.DF:PT:BLD:QN:AUTOMATED IMFHI3DXGU [facility] ERYTHROCYTE MEAN CORPUSCULAR HEMOGLOBIN CONCENTRATION:MCNC:PT:RBC:QN34.8NOChristian Hospital ERYTHROCYTE MEAN CORPUSCULAR HEMOGLOBIN:ENTMASS:PT:RBC:QN29.8 pg 27.0 - 34.0 pgSt. Louis Behavioral [facility] Institute ERYTHROCYTE MEAN CORPUSCULAR VOLUME:ENTVOL:PT:RBC:QN:AUTOMATED COUNT85.7 fL80.0 - 100.0 fLSt. Louis Behavioral Medicine Institute ERYTHROCYTES:NCNC:PT:BLD:QN:AUTOMATED COUNT4.6[facility] HEMOGLOBIN:MCNC:PT:BLD:QN:13.7NOChristian Hospital LEUKOCYTES5.4[facility] MONOCYTES:NCNC:PT:BLD:QN:AUTOMATED COUNT0.4[facility] NEUTROPHILS:NCNC:PT:BLD:QN:AUTOMATED COUNT3.9[facility] PLATELETS:NCNC:PT:BLD:QN:AUTOMATED GRBTI216QJQDScotland County Memorial HospitalInterpretation and review of laboratory resultsAbnormalScotland County Memorial HospitalLYMPHOCYTES:NCNC:PT:BLD:QN: 0.8LowScotland County Memorial HospitalOriginal Ordering Provider: MD Sudheer Bowen [facility] CenterHEMATOLOGYOrdered By: SYSTEM SYSTEM on 78-07-3241Yzgotoyut/100 WBC (Bld)0.3 %Normal0.0 - 2.0 %Remisol HemeBasophils/Leukocytes Auto (Bld) [Pure # fraction]0.0 E9/LNormal0.0 - 0.2 E9/LRemisol HemeEosinophils (Bld) [#/Vol]0.2 E9/LNormal0.0 - 0.5 E9/LRemisol HemeEosinophils/100 WBC (Bld)4.5 %Normal0.0 - 8.0 %Remisol HemeErythrocyte distribution width (RBC) [Ratio]13.3 %Yvtala15.9 - 14.2 %Remisol HemeHematocrit (Bld) [Volume fraction]39.3 %Nmaeui17.0 - 46.0 % Remisol HemeHemoglobin (Bld) [Mass/Vol]13.7 g/yBTpfdiv02.0 - 16.0 gm/dLRemisol HemeLymphocytes (Bld) [#/Vol]0.8 E9/LLow1.0 - 4.0 E9/LRemisol Heme Lymphocytes/100 WBC (Bld)14.6 %Grtnoa85.0 - 50.0 %Remisol HemeMCH (RBC) [Entitic mass]29.8 lfTyayec89.0 - 34.0 pgRemisol HemeMCHC (RBC) [Mass/Vol]34.8 g/dL Wdmlsb19.4 - 36.0 gm/dLRemisol HemeMCV (RBC) [Entitic vol]85.7 xWKjyuqy26.0 - 100.0 fLRemisol HemeMonocytes (Bld) [#/Vol]0.4 E9/LNormal0.2 - 1.0 E9/LRemisol HemeMonocytes/100 WBC (Bld)8.0 %Normal4.0 - 14.0 %Remisol HemeNeutrophils (Bld) [#/Vol]3.9 E9/LNormal2.0 - 7.5 E9/LRemisol HemeNeutrophils/100 WBC (Bld)72.6 % Vclmej97.0 - 75.0 %Remisol HemePlatelet mean volume (Bld) [Entitic vol]8.8 fL Normal6.4 - 10.8 fLRemisol HemePlatelets (Bld) [#/Vol]231.0 E9/QAchqxc456.0 - 500.0 E9/LRemisol HemeRBC (Bld) [#/Vol]4.6 E12/LNormal4.3 - 5.9 E12/LRemisol HemeWBC corrected for nucl RBC Auto (Bld) [#/Vol]5.4 E9/LNormal4.0 - 11.0 E9/L Remisol HemeHEMATOLOGYOrdered By: Iram Lofton on 70-46-9028ZNT (Bld) [Velocity]11 mm/hNormal0 - 34 mm/hrFT HemeAutoSSSed Rate Automatedon 84-09-7732GUU (Bld) [Velocity]11 mm/hNormal0-34[facility] Comment on above:Performed By: #### [id number] #### [place] [facility] [address] [place] [address] 88643Lujbaxk Outreachon 03-19-3289Vnqzzut [id number] Kierra NATARAJAN 1990 F Date Provider Department Center 09/28/2024 51364-JKUXYHMARÍA ELENA GALEANO JAVIER Collins Family History Problem Relation Age of Onset Anxiety disorder Mother Arthritis Mother Depression Mother Alcohol abuse Father Cancer Father Alcohol abuse Sister Anxiety disorder Sister Arthritis Mother's Sister Arthritis Mother's Brother Arthritis Mother's Sister Family Status - Relation Status Age at Mother Father Sister Mother's Sister Mother's Brother Mother's SisterNormalUniversity [facility] HospitalCB WITH AUTO DIFFERENTIALon 70-44-1177Zprnuynjk (Bld) [#/Vol]0.05 10*3/uLNormal0.00-0.20 [facility] NorthComment on above:Performed By: #### [id number] #### [facility] ([facility]) [address] [place], [place] [address]Fkvlpmqbj/100 WBC (Bld)1.0 %Normal0.0-1.0UnMercy Health St. Rita's Medical CenterComment on above:Performed By: #### [id number] #### [facility] ([facility]) [address] [place], [place] [address]Kbjxtxnxczl (Bld) [#/Vol]0.26 10*3/uLNormal0.00-0.50UnMercy Health St. Rita's Medical CenterComment on above:Performed By: #### [id number] #### [facility] ([facility]) [address] [place], [place] [address]Eyoniyuesbp/100 WBC (Bld)5.0 %Normal0.0-6.0UnMercy Health St. Rita's Medical CenterComment on above:Performed By: #### [id number] #### [facility] ([facility]) [address] [place], [place] [address]Ecpdtcxfqbx distribution width (RBC) [Ratio]13.0 %Normal 11.5-15.0UnMercy Health St. Rita's Medical CenterComment on above:Performed By: #### [id number] #### [facility] ([facility]) [address] [facility] [place] [address]OPHNRWAYAGG MEAN CORPUSCULAR HEMOGLOBIN CONCENTRATION (G/DL) BY WIMVYGVWH36.0 g/aZNlildb48.0-35.0UnMercy Health St. Rita's Medical CenterComment on above:Performed By: #### [id number] #### [facility] ([facility]) [address] [place] [address]Tkidijcvmq (Bld) [Volume fraction]37.1 %Tenhpn44.0-48.0 [facility] NorthComment on above:Performed By: #### [id number] #### [facility] ([facility]) [address] [place] [address]Jstzgtoepn (Bld) [Mass/Vol]12.6 g/kGQjycze73.0-15.0UnMercy Health St. Rita's Medical CenterComment on above:Performed By: #### [id number] #### [facility] ([facility]) [address] [place], [place] [address]Bygredpt granulocytes (Bld) [#/Vol]0.02 10*3/uLNormal0.00-0.20 [facility] NorthComment on above:Performed By: #### [id number] #### [facility] ([facility]) [address] [place] [address]Qmjehgkc granulocytes/100 WBC (Bld)0.4 %Normal0.0-1.0UnMercy Health St. Rita's Medical CenterComment on above:Performed By: #### [id number] #### [facility] ([facility]) [address] [place] [address]Lqadiieikvh (Bld) [#/Vol]0.98 10*3/uLLow1.20-4.00UnMercy Health St. Rita's Medical CenterComment on above:Performed By: #### [id number] #### [facility] ([facility]) [address] [place] [address]Yepatjriiww/100 WBC (Bld)18.9 %Low20.0-45.0UnMercy Health St. Rita's Medical CenterComment on above:Performed By: #### [id number] #### [facility] ([facility]) [address] [facility] [place], [place] [address]TGL (RBC) [Entitic mass]29.4 czRegvvp14.0-33.0UnMercy Health St. Rita's Medical CenterComment on above:Performed By: #### [id number] #### [facility] ([facility]) [address] [facility] [place] [address]DKV (RBC) [Entitic vol]86.7 wQOrwizk46.0-98.0UnMercy Health St. Rita's Medical CenterComment on above:Performed By: #### [id number] #### [facility] ([facility]) [address] [facility] [place], [place] [address]Epohjinyw (Bld) [#/Vol]0.43 10*3/uLNormal0.10-1.00UnMercy Health St. Rita's Medical CenterComment on above:Performed By: #### [id number] #### [facility] ([facility]) [address] [place], [place] [address]Izlzfregi/100 WBC (Bld)8.3 %Normal5.0-12.0UnMercy Health St. Rita's Medical CenterComment on above:Performed By: #### [id number] #### [facility] ([facility]) [address] [facility] [place], [place] [address]Nvudseiquky (Bld) [#/Vol]3.44 10*3/uLNormal1.60-7.60UnMercy Health St. Rita's Medical CenterComment on above:Performed By: #### [id number] #### [facility] ([facility]) [address] [facility] [place] [address]Abbugpwkqwp/100 WBC (Bld)66.4 %Txyqcv84.0-72.0UnMercy Health St. Rita's Medical CenterComment on above:Performed By: #### [id number] #### [facility] ([facility]) [address] [facility] [place], [place] [address]XQVU (PER 100 WBCS) BY AUTOMATED COUNT0.0 %Msaaqf3JikscfextvMercy Health St. Rita's Medical CenterComment on above:Performed By: #### [id number] #### [facility] ([facility]) [address] [place] [address]ASAOCQHPM (10*3/UL) IN BLOOD AUTOMATED [id number] 10*3/uLNormal 150-400UnMercy Health St. Rita's Medical CenterComment on above:Performed By: #### [id number] #### [facility] ([facility]) [address] [place] [address]XJX (Bld) [#/Vol]4.28 10*6/uLNormal3.80-5.00UnMercy Health St. Rita's Medical CenterComment on above:Performed By: #### [id number] #### [facility] ([facility]) [address] [place] [address]MFR (Bld) [#/Vol]5.18 10*3/uLNormal4.00-10.60UnMercy Health St. Rita's Medical CenterComment on above:Performed By: #### [id number] #### [facility] ([facility]) [address] [place] [address]RMWDVZWLCUYKS METABOLIC PANELon 17-48-5596Jplylnk [Mass/Vol]3.9 g/dLNormal3.5-5.7UnMercy Health St. Rita's Medical CenterComment on above:Performed By: #### [id number] #### [facility] ([facility]) [address] [place] [address]SMK [Catalytic activity/Vol]67 U/IRwmyev37-636SvirtkedcuMercy Health St. Rita's Medical CenterComment on above:Performed By: #### [id number] #### [facility] ([facility]) [address] [place], [place] [address]ZOZ [Catalytic activity/Vol]17 U/LNormal7-52UnMercy Health St. Rita's Medical CenterComment on above:Performed By: #### [id number] #### [facility] ([facility]) [address] [place], [place] [address]Vuypl gap [Moles/Vol]9 mmol/LNormal7-20UnMercy Health St. Rita's Medical CenterComment on above:Performed By: #### [id number] #### [facility] ([facility]) [address] [place] [address]XMK [Catalytic activity/Vol]15 U/PExnwmz40-29EmwsdcdzzzMercy Health St. Rita's Medical CenterComment on above:Performed By: #### [id number] #### [facility] ([facility]) [address] [place] [address]Dniniiiqj [Mass/Vol]0.2 mg/dLLow0.3-1.0UnMercy Health St. Rita's Medical CenterComment on above:Performed By: #### [id number] #### [facility] ([facility]) [address] [place] [address]Tneauxh [Mass/Vol]8.3 mg/dLLow8.6-10.3UnMercy Health St. Rita's Medical CenterComment on above:Performed By: #### [id number] #### [facility] ([facility]) [address] [place] [address]Umwwcntx [Moles/Vol]110 mmol/TVyet10-147EjapmqbrvqMercy Health St. Rita's Medical CenterComment on above:Performed By: #### [id number] #### [facility] ([facility]) [address] [place] [address]LO0 [Moles/Vol]24 mmol/XAcnshq32-41SipfljarjlMercy Health St. Rita's Medical CenterComment on above:Performed By: #### [id number] #### [facility] ([facility]) [address] [place] [address]Himshnuroq [Mass/Vol]0.72 mg/dLNormal0.60-1.20UnMercy Health St. Rita's Medical CenterComment on above:Performed By: #### [id number] #### [facility] ([facility]) [address] [place] [address]GPVGIRRAWL FILTRATION RATE ML/MIN/1.73 SQ M.JHAWSRLYW415.4 mL/min/1.73m*2Normal>60.0UnMercy Health St. Rita's Medical CenterComment on above: Result Comment: The [facility]???s estimated glomerular filtration rate (eGFR) will [...] group of individuals.Performed By: #### [id number] #### [facility] ([facility]) [address] [place], [place] [address]Mbphhtq [Mass/Vol]90 mg/yHWsqzqt43-740AzmifwdvjkMercy Health St. Rita's Medical CenterComment on above:Performed By: #### [id number] #### [facility] ([facility]) [address] [place], [place] [address]Jitgiuwdn [Moles/Vol]3.7 mmol/LNormal3.5-5.1UnMercy Health St. Rita's Medical CenterComment on above:Performed By: #### [id number] #### [facility] ([facility]) [address] [place], [place] [address]Zpeklch [Mass/Vol]6.3 g/dLNormal6.0-8.3UnMercy Health St. Rita's Medical CenterComment on above:Performed By: #### [id number] #### [facility] ([facility]) [address] [place], [place] [address]Aafegm [Moles/Vol]139 mmol/IHxpyhh509-576RcqdogkkksMercy Health St. Rita's Medical CenterComment on above:Performed By: #### [id number] #### [facility] ([facility]) [address] [place], [place] [address]Qsof nitrogen [Mass/Vol]10 mg/dLNormal7-25UnMercy Health St. Rita's Medical CenterComment on above:Performed By: #### [id number] #### [facility] ([facility]) [address] [place], [place] [address]SRKJ NITROGEN/CREATININE (MASS RATIO) IN SER/PLAS13.9Normal [facility] NorthComment on above:Performed By: #### [id number] #### [facility] ([facility]) [address] [place], [place] [address]AAHFNUja 75-64-7109YWVHVXThskldto started having swollen neck lymph nodes. Seen doctor for this and had blood work and having more swelling in the neck and behind the ears. States difficult to swallow. Having body aches and itching. Was told this is because the carbamazepine side effects but the swelling is worse she states. Talking in complete full sentences.[facility] EDPROVon 99-89-1479DYZUVMAPF Chief Complaint Patient presents with Swollen Glands [...] Rate and Rhythm: Normal (more content not included)...NormalUnMercy Health St. Rita's Medical CenterMONONUCLEOSIS SCREENon 90-71-7957JBUVWPWUNUS ANTIBODIESNegative NormalNegativeUnMercy Health St. Rita's Medical CenterComment on above:Performed By: #### [id number] ####[facility] ([facility])[address] [place] [address] Office Visiton 80-66-7802Vxualm-up [id number] Kierra NATARAJAN 1990 F Date Provider Department Center 09/23/2024 32736-HRRINACE COKER [facility] PRIM Mona Collins Family History Problem Relation Age of Onset Anxiety disorder Mother Arthritis Mother Depression Mother Alcohol abuse Father Cancer Father Alcohol abuse Sister Anxiety disorder Sister Arthritis Mother's Sister Arthritis Mother's Brother Arthritis Mother's Sister Family Status - Relation Status Age at Mother Father Sister Mother's Sister Mother's Brother Mother's Sister Level of Service:70852 GA OFFICE/OUTPATIENT ESTABLISHED MOD MDM 30 MIN Reason for Visit and Comments: lymphnode [Other] - Patient states she has swollen lymphnode around jaw/ neck within the past couple days. Right side of abdomen gets tingly and numb. She was dx with Trigeminal neuralgia earlier August. Verified by her neurology. MRI on Friday of head.NormalUnMercy Health St. Rita's Medical Center IGP,APTIMA HPV,AGE GDLNon 12-39-5067KGH GDLN ACOG TESTINGNote.[facility] Comment on above:TESTS RESULT FLAG UNITS REF RANGE LAB Clinician Provided Cytology Information Source.............Cervix;Endocervix No. of containers..01 ThinPrep Vial Age Verna ARNOLD Carmen... FLAG LEGEND: L-Low Normal,H-High Normal,LL-Alert Low,HH-Alert High <-Panic Low,>-Panic High,A-Abnormal,AA-Critical Abnormal Performed at: 01 =[address] [address] Kiesha Monroe MD, HPV APTIMANegativeNegativeNOMS HealthcareComment on above:This nucleic acid amplification test detects fourteen high- risk HPV types (16,18,31,33,35,39,45,51,52,56,58,59,66,68) without differentiation. Performed at: =[address] [id number] Catalyst Recovery Operator: Kiesha Monroe MD, Phone: [phone] Performed at: [address] [id number] Catalyst Recovery Operator: Kiesha Monroe MD, Phone: [phone] IGP, APTIMA HPV, RFX 16/18,45Note.NOMS HealthcareComment on above:TESTS RESULT FLAG UNITS REF RANGE LAB DIAGNOSIS: 02 NEGATIVE FOR INTRAEPITHELIAL LESION OR MALIGNANCY. Specimen adequacy: 02 Satisfactory for evaluation. Endocervical and/or squamous metaplastic cells (endocervical component) are present. Performed by: 02 Samantha Garcia, Signs Sales Representative ([facility]) . 02 Note: Note 02 The Pap smear is a screening test designed to aid in the detection of premalignant and malignant conditions of the uterine cervix. It is not a diagnostic procedure and should not be used as the sole means of detecting cervical cancer. Both false-positive and false-negative reports do occur. Test Methodology: Note 02 The [employer] Certified [employer] was unable to read this specimen. Therefore a manual review was performed. FLAG LEGEND: L-Low Normal,H-High Normal,LL-Alert Low,HH-Alert High <-Panic Low,>-Panic High,A-Abnormal,AA-Critical Abnormal Performed at: [address] [address] Kiesha Monroe MD, HPV Genotype Reflex Note 02 Criteria not met, HPV Genotype not performed. Criteria not met, HPV Genotype not performed. BRUSH-SPATULA CERVIX ENDOCERVIX CLINISYNCNOMS HealthcareUS PELVIS W/ TRANSVAGINALon 10-21-1952[place]gc[place] [address] Ultrasound Report Signed Patient: KIERRA NATARAJAN MR#: [id number] : 1990 Acct:[id number] Age/Sex: 33 / F ADM Date: 08/24/24 Loc: US Attending Dr: Barb Luke Ordering Physician: Barb Luke Date of Service: 08/24/24 Procedure(s): US pelvis w/ transvaginal Accession Number(s): [id number] cc: Barb Luke; Willam Walter NP The [place] [id number] Patient Name: KIERRA NATARAJAN MRN: [id number] date: 1990 Sex: F Assigned Patient Location: US Current Patient Location: Accession/Order Number: [id number] Exam Date: 08/24/2024 16:45 Report Date: 08/25/2024 [...] M.D. Signed By: 08/25/2413 DD/ 0 TD/TT: Cuff Setter Lockstitch:TBHRadiology, Radiologist, - 08/25/[address] [address] Ultrasound Report Signed Patient: KIERRA NATARAJAN MR#: [id number] : 1990 Acct:[id number] Age/Sex: 33 / F ADM Date: 08/24/24 Loc: US Attending Dr: Barb Luke Ordering Physician: Barb Luke Date of Service: 08/24/24 Procedure(s): US pelvis w/ transvaginal Accession Number(s): [id number] cc: Barb Luke; Willam Walter NP [address] [address] Patient Name: KIERRA NATARAJAN MRN: [id number] date: 1990 Sex: F Assigned Patient Location: US Current Patient Location: Accession/Order Number: [id number] Exam Date: 08/24/2024 16:45 Report Date: 08/25/2024 [...] a fibroid is favored Electronically authenticated by: ELISE MALHOTRA Date: 08/25/2024 07:11 Dictated By: Elsie Malhotra M.D. Signed By: 08/25/24712 DD/ 0 TD/TT: Cuff Setter Lockstitch: NOMAlireza HealthcareRadiology Study observation (narrative)NOMS HealthcareUS PELVIS W/ TRANSVAGINALOrdered By: Radiologist Radiology on 51-64-1101UDJA [facility] Work Phone: all CBC WITH AUTO DIFFon 77-76-5162SSMYJCMLH ABSOLUTE AUTO0.0NOMN HealthcareBasophils/100 WBC (Bld)0.6 %0.2 - 2.0 %[facility] Eosinophils/100 WBC (Bld)3.2 %0.9 - 7.0 %NOMS HealthcareErythrocyte distribution width (RBC) [Ratio]12.8 %11.0 - 15.0 %NOM HealthcareHematocrit (Bld) [Volume fraction]38.3 %36.0 - 48.0 %NOM HealthcareHemoglobin (Bld) [Mass/Vol]12.9 g/dL 12.0 - 16.0 g/dLNOSaint John's HospitalIMMATURE GRANULOCYTES ABS AUTO0.02[facility] Immature granulocytes/100 WBC (Bld)0.3 %0.0 - 0.5 %NOM HealthcareLYMPHOCYTES ABSOLUTE AUTO1.7NOMN HealthcareLymphocytes/100 WBC (Bld)24.0 %20.5 - 60.0 %[facility]right Memorial HospitalH (RBC) [Entitic mass]29.4 pg26.7 - 34.0 pgNOResearch Medical CenterHC (RBC) [Mass/Vol]33.7 g/dL29.9 - 35.2 g/dLScotland County Memorial HospitalMCV (RBC) [Entitic vol]87.2 fL 81.0 - 99.0 fLScotland County Memorial HospitalMONOCYTES ABSOLUTE AUTO0.4NOSaint John's Hospital Monocytes/100 WBC (Bld)6.1 %1.7 - 12.0 %NOM HealthcareNEUTROPHILS ABSOLUTE AUTO 4.8NOMS HealthcareNeutrophils/100 WBC (Bld)65.8 %43.0 - 75.0 %[facility] Platelet mean volume (Bld) [Entitic vol]11.1 fL9.5 - 13.5 fLScotland County Memorial HospitalTBH EO #0.2NOMS HealthcareTBH XSO108ATOZ [facility] Private HospitalTB RBC4.39NOMS Keenan Private HospitalTB WBC 7.2NOMS HealthcareCLINISYNCNOMS HealthcareXR pre/post mri xrayon 08-84-3537OX pre/post mri xrayUNIVERSITY HOSP[facility]ALS CONNE[facility] [place] [address] MRI Report Signed Patient: Kierra Natarajan MR#: [id number] : 1990 Acct:[id number] Age/Sex: 33 / F ADM Date: 08/10/24 Loc: Room: Type: [facility] Attending Dr: Ro MAGDALENO Copies to: RASTA Arzola Ordering Provider: RASTA Arzola Date of Service: 08/10/24 MR/MR lumbar spine wo con: R26.9, M54.50, N39.489, R20.0 ([id number]) XR/XR pre/post mri xray: R26.9, M54.50, N39.489, [...] Eben Morel M.D.08/10/2024 8:33 AM Dictation Location: [place] [address] Transcribed By: [facility] 08/10/24 0833 Dictated By: Eben Morel DO 08/10/24 0828 Signed By: 08/10/24 0833[facility] Physician GroupMR cervical spine wo conon 86-42-4347GA cervical spine wo [facility] [address] [place] [address] [place] [address] MRI Report Signed Patient: Kierra Natarajan MR#: [id number] 36 : 1990 Acct:[id number] Age/Sex: 33 / F ADM Date: 06/25/24 Loc: MR Room: Type: [facility] Attending Dr: Ro Forte Adult EXECUTIVE ADMINISTRATIVE ASSISTANT-BC Copies to: CAROLYN Arzola NP-C Ordering Provider: [...] Yung Jr., D.OAlexx06/25/2024 6:59 PM Dictation Location: [place] [address] Transcribed By: [facility] 06/25/241858 Dictated By: Tony Yung Jr, DO 06/25/241852 Signed By: 06/25/241858[facility] Physician GroupAmbulatory referral to PsychiatryOrdered By: Beryl Sagastume on 39-69-4597WjgWskpbwThe Christ HospitalFolate [Mass/Vol]on 94-28-7920KAZJG ACID15.0 ng/mLNormal>5.8[facility] Comment on above:Result Comment: NEW REFERENCE RANGEPerformed By: #### 3016-3, 2284-06, 2132-07, 50775-8 #### [facility] ([id number]) [address], [address] [place] [address] #### 64948-7 #### [facility] ([id number]) [address] [place], [place] [address]Fmcnrndikfriyj [Moles/Vol]on 31-23-2815Ekqxcmfdsvzyw Acid, QN, P0.15 nmol/mLNormal<=0.40ProVal Verde Regional Medical CenterComment on above:Result Comment: NOTE ADDITIONAL INFORMATION This test was developed and its performance characteristics determined by [facility] in a manner consistent with CLIA requirements. This test has not been cleared or approved by the U.S. Food and Drug Administration. Test Performed by: [facility] [place] [address] Catalyst Recovery Operator: Michele Lee Ph.D.; CLIA# [id number] By: #### 3016- 3, 2284-06, 2132-07, 53816-9 #### [facility] ([id number]) [address], [address] [place] [address] #### 65012-8 #### [facility] ([id number]) [address] [place] [address]BCD Qnon 66-97-7565KGE8.81 uIU/mLNormal0.49-4.67ProVal Verde Regional Medical CenterComment on above:Performed By: #### 3016-3, 2284-06, 2132-07, 80646-4 #### [facility] ([id number]) [address] [place] [address] #### 71118-0 #### [facility] ([id number]) [address] [place] [address]CSNJTFU B12on 01-26-9910Tulufznhf (Vitamin B12) [Mass/Vol]297 pg/nLMnzgtb959-623NgpTbcmos [facility] CenterComment on above:Performed By: #### 3016-3, 4-8, 2132-07, 04693-0 #### [facility] ([id number]) [address] [place] [address], [address] [place] [address] #### 16378-2 #### [facility] ([id number]) [address] [place] [address]Yhqzlmx D+Metabolites [Mass/Vol]on 80-39-3830IQRVMDW D 25 HYD TOT27.9 ng/tQGhi78-545MngJbcuxg [facility] CenterComment on above:Result Comment: Vitamin D status 25 [place] Vitamin D Deficiency <20 ng/mL Insufficiency 20-29 ng/mL Sufficiency 30-100 ng/mL Toxicity >100 ng/mL NOTE: A pediatric reference range has not been established by the rn clinical documentation of this kit. The [place] [employer] recommends a Vitamin D level of = or >20ng/mL in infants and children.Performed By: #### 3016-3, 8, 2132-07, 02654-9 #### [facility] ([id number]) [address] [place] [address], [address] [place] [address] #### 20697-3 #### [facility] ([id number]) [address] [place] [address]NFQ EIA W/REFLEX 9 BIOMARKERSon 61-13-6327VQR DirectNegative NormalNegativeThe St. Vincent HospitalComment on above:Performed By: #### ANARF9 #### [facility] [address] [place] [address] Dr. Altagracia AllenC-REACTIVE PROTEINS (HS)on 62-52-2680W-Reactive Protein, Cardiac 2.96 mg/LNormal0.00-3.00The St. Vincent HospitalComment on above:Result Comment: Relative Risk for Future Cardiovascular Event Low <1.00 Average 1.00 - 3.00 High >3.00Performed By: #### CRPHS #### [facility] [address] [place] [address] Dr. Altagracia AllenCYCLIC CITRULLINATED PEPTIDE AB (CCP)on 65-46-5649QZY Antibodies IgG/IgA4 unitsNormal0-19The St. Vincent HospitalComment on above:Result Comment: Negative <20 Weak positive 20 - 39 Moderate positive 40 - 59 Strong positive >59Performed By: #### CCPAB #### [facility] [address] [place] [address] Dr. Altagracia AllenHIV 1 AND 2 WITH REFLEXon 77-31-6824ELB Screen 4th Generation wRfxNon-ReactiveNormalNon ReactiveThe St. Vincent HospitalComment on above:Result Comment: HIV Negative HIV-1/HIV-2 antibodies and HIV-1 p24 antigen were NOT detected. There is no laboratory evidence of HIV infection.Performed By: #### HIV12 #### [facility] [address] [place] [address] Dr. Altagracia AllenMRI TSPINE WO CONon 39-59-5689TDZ TSPINE WO CONEXAMINATION: MRI TSPINE WO CON [...] authenticated by: ERMELINDA PAIGE Date: 2023-03-05 14:38NormalThe St. Vincent HospitalRHEUMATOID FACTORon 40-02-2313UH Latex Turbid.<10.0Normal<14.[address] Vincent HospitalComment on above:Performed By: #### RF ####[facility] [address] [place] [address]Dr. Altagracia AllenSED RATE WESTERGRENon 15-56-1799SDZ RATE14 mm/hrNormal<=20The [facility] Comment on above:Performed By: #### SEDR #### [facility] [address] [place] [address] [address] Altagracia AllenHEMOGRAM AND PLATELon 69-94-0742Uicwhwcvyg (Bld) [Volume fraction]40.0 %Tynpsc78.0-48.0The St. Vincent HospitalComment on above:Performed By: #### HH ####[facility] [address] [place], [place] [address]Dr. Altagracia AllenHemoglobin (Bld) [Mass/Vol]13.5 g/nKIpuywe02.0-16.0The St. Vincent HospitalComment on above:Performed By: #### HH ####[facility] Zh[address] [place], [place] [address]Dr. Altagracia AllenH (RBC) [Entitic mass]28.[address]Jytehb74.7-34.0The [address] Vincent HospitalComment on above: Performed By: #### HH ####[facility] C[address] [place], [place] [address]Dr. Altagracia AllenHC (RBC) [Mass/Vol]33.8 g/dLNormal 29.9-35.2The St. Vincent HospitalComment on above:Performed By: #### HH ####[facility] [address] [place], [place] [address]Dr. Patrice AllenMCV (RBC) [Entitic vol]84.[address]jqygo30.0-99.0The [facility] Comment on above:Performed By: #### HH ####[facility] [address] [place] [address]Dr. Altagracia QsqvuUBW394 103/wgGunqpz174-277Efq St. Vincent HospitalComment on above:Performed By: #### HH ####[facility] [address] [place] [address]DrAlexx Altagracia AllenRBC4.73 106/ul Normal4.20-5.40The St. Vincent HospitalComment on above:Performed By: #### HH ####[facility] [address] [place] [address]Dr. Patrice cabrales ChangWBC8.0 103/ulNormal4.0-11.0The [facility]. [facility] HospitalComment on above: Performed By: #### HH ####[facility] [address] [address]DrAlexx AllenLIPID PROFILEon [id number] RATIO NORMSEE BELOWSelect Medical Specialty Hospital - CantonComment on above:Result Comment: 3.3 - 4.4 LOW RISK 4.4 - 7.1 AVERAGE RISK 7.1 - 11.0 MODERATE RISK >11.0 HIGH RISKPerformed By: #### LIPID, TSHRFT4, CMP #### [facility] [address] [address] [address] Altagracia Nuñezesterol [Mass/Vol]175 mg/dLNormal<=200The [facility] Comment on above:Performed By: #### LIPID, TSHRFT4, CMP #### [facility] [address] [address] [address] Altagracia Nuñezesterol in HDL [Mass/Vol]29 mg/dLCritically lmq40-12Hpl St. [facility] HospitalComment on above:Performed By: #### LIPID, TSHRFT4, CMP #### [facility] [address] [address] [address] Altagracia Nuñezesterol in LDL [Mass/Vol]127.2 mg/dLSelect Medical Specialty Hospital - CantonComment on above:Performed By: #### LIPID, TSHRFT4, CMP #### [facility] [address] [address] [address] Altagracia AllenCholesterol.total/Cholesterol in HDL [Mass ratio]6.0 {ratio} NormalThe St. Vincent HospitalComment on above:Performed By: #### LIPID, TSHRFT4, CMP #### [facility] [address] [address] [address] Altagracia Cardoso NORMAL> or = 60 mg/dl - LOW CARDIOVASCULAR RISK <40 mg/dl - HIGH CARDIOVASCULAR RISKSelect Medical Specialty Hospital - CantonComment on above:Performed By: #### LIPID, TSHRFT4, CMP #### [facility] [address] [address] [address] Altagracia AllenLDL CALC NORMALSEE BELOWSelect Medical Specialty Hospital - CantonComment on above:Result Comment: <100 mg/dl OPTIMAL 100 - 129 mg/dl NEAR OR ABOVE OPTIMAL 130 - 159 mg/dl BORDERLINE HIGH 160 - 189 mg/dl HIGH >190 mg/dl VERY HIGH Performed By: #### LIPID, TSHRFT4, CMP #### [facility] [address] [address] [address] Altagracia AllneTriglyceride [Mass/Vol]94 mg/dLNormal<=150The [facility] Comment on above:Performed By: #### LIPID, TSHRFT4, CMP #### [facility] [address] [address] [address] Altagracia AllenVLDL CALC18.8 mg/dLNoWhite HospitalComment on above: Performed By: #### LIPID, TSHRFT4, CMP #### [facility] [address] [place] [address] Dr. Altagracia AllenPROF 14(COMP METB)on 10-29-5332Zncpgli [Mass/Vol]3.6 g/dLNormal 3.4-5.0The St. Vincent HospitalComment on above:Performed By: #### LIPID, TSHRFT4, CMP #### [facility] [address] [place] [address] Dr. Altagracia AllenAlbumin/Globulin [Mass ratio]1.1 {ratio}NormalThe St. Vincent HospitalComment on above:Performed By: #### LIPID, TSHRFT4, CMP #### [facility] [address] [place] [address] Dr. Altagracia Wolfe [Catalytic activity/Vol]72 U/PJnjpby45-341Ibp St. Vincent HospitalComment on above:Performed By: #### LIPID, TSHRFT4, CMP #### [facility] [address] [place] [address] Dr. Altagracia Jimenez [Catalytic activity/Vol]27 U/IHqcslj80-87Msk St. Vincent HospitalComment on above:Performed By: #### LIPID, TSHRFT4, CMP #### [facility] [address] [place] [address] Dr. Altagracia Maurer gap [Moles/Vol]13.8 mmol/LNormalThe [facility] Comment on above:Performed By: #### LIPID, TSHRFT4, CMP #### [facility] [address] [place] [address] Dr. Altagracia Vines [Catalytic activity/Vol]17 U/PWjklmn17-92Ntd St. Vincent HospitalComment on above:Performed By: #### LIPID, TSHRFT4, CMP #### [facility] [address] [place] [address] Dr. Altagracia AllenBilirubin [Mass/Vol]0.2 mg/dLNormal0.2-1.0The [facility] Comment on above:Performed By: #### LIPID, TSHRFT4, CMP #### [facility] [address] [place] [address] Dr. Altagracia AllenCalcium [Mass/Vol]8.6 mg/dLNormal8.5-10.1[facility] Comment on above:Performed By: #### LIPID, TSHRFT4, CMP #### [facility] [address] [place] [address] Dr. Altagracia AllenChloride [Moles/Vol]106 mmol/CDubiku27-877DmjSelect Medical Specialty Hospital - [place], Inc Comment on above:Performed By: #### LIPID, TSHRFT4, CMP #### [facility] [address] [place] [address] Dr. Altagracia AllenCO2 [Moles/Vol]23.7 mmol/GRdicrp97.0-32.0The [facility] Comment on above:Performed By: #### LIPID, TSHRFT4, CMP #### [facility] [address] [address] [address] Altagracia AllenCreatinine [Mass/Vol]0.76 mg/dLNormal0.55-1.02The St. Vincent HospitalComment on above:Performed By: #### LIPID, TSHRFT4, CMP #### [facility] [address] [address] [address] Frias ChangEGFR-AF PITCAIRN ISLANDER>60Normal>=60The St. Vincent HospitalComment on above:Performed By: #### LIPID, TSHRFT4, CMP #### [facility] [address] [address] [address] Altagracia ShoemakerGFR-NON AF PITCAIRN ISLANDER>60Normal>=60The [facility]. Vincent HospitalComment on above:Performed By: #### LIPID, TSHRFT4, CMP #### [facility] [address] [address] [address] Altagracia AllenGlobulin (S) [Mass/Vol]3.4 g/dLNormalThe St. Vincent HospitalComment on above:Performed By: #### LIPID, TSHRFT4, CMP #### [facility] [address] [address] [address] Altagracia AllenGlucose [Mass/Vol]92 mg/uEKfzwhw08-315Zle [facility] Comment on above:Performed By: #### LIPID, TSHRFT4, CMP #### [facility] [address] [address] [address] Altagracia AllenPotassium [Moles/Vol]3.5 mmol/LNormal3.5-5.1The [facility] Comment on above:Performed By: #### LIPID, TSHRFT4, CMP #### [facility] [address] [address] [address] Altagracia AllenProtein [Mass/Vol]7.0 g/dLNormal6.4-8.2The [facility] Comment on above:Performed By: #### LIPID, TSHRFT4, CMP #### [facility] [address] [place] [address] Dr. Altagracia AllenSodium [Moles/Vol]140 mmol/QOkutsp189-028Uoa [facility] Comment on above:Performed By: #### LIPID, TSHRFT4, CMP #### [facility] [address] [place] [address] Dr. Altagracia AllenUrea nitrogen [Mass/Vol]13.0 mg/dLNormal7.0-18.0The St. Vincent HospitalComment on above:Performed By: #### LIPID, TSHRFT4, CMP #### [facility] [address] [place] [address] nitrogen/Creatinine [Mass ratio]17.1 mg/mgNoWhite HospitalComment on above:Performed By: #### LIPID, TSHRFT4, CMP #### [facility] [address] [place] [address] Dr. Altagracia Johnson W/ REFLEX TO FT4on 96-95-5777DSL0.830 uIU/mLNormal0.358-3.[address] [facility] HospitalComment on above:Performed By: #### LIPID, TSHRFT4, CMP #### [facility] [address] [place] [address] Dr. Altagracia AllenXR TSPINE 3 VIEWSon 66-15-7986VB TSPINE 3 VIEWSEXAMINATION: XR TSPINE 3 VIEWS [...] Electronically authenticated by: ERMELINDA PAIGE Date: 2023-02-14 07:59NoWhite HospitalCB W/DIFFon 56-82-0843UKH BASOPHILS0.1 10*3/uLNormal0.0-0.2The [facility] - [place] NorthComment on above:Performed By: #### [id number] #### [facility] [address] [place] [address], USAABS IMM GRANS0.0 10*3/uLNormal0.0-0.2The [facility] [place] NorthComment on above:Performed By: #### [id number] #### [facility] [address] [place] [address], USAABS NEUTROPHILS4.9 10*3/uLNormal1.6-7.6The [facility] [place] NorthComment on above:Performed By: #### 89715 #### [facility] [address] [place] [address], [facility]OSPITALBasophils/100 WBC (Bld)0.7 %Normal0.0-1.0The [facility] [place] NorthComment on above:Performed By: #### [id number] #### [facility] [address] [place] [address], USAEosinophils (Bld) [#/Vol]0.3 10*3/uLNormal0.0-0.5The [facility] [place] NorthComment on above:Performed By: #### [id number] #### [facility] [address] [place] [address], USAEosinophils/100 WBC (Bld)3.6 %Normal0.0-6.0The [facility] - [place] NorthComment on above:Performed By: #### 76539 #### [facility] [address] [place] [address], USAErythrocyte distribution width (RBC) [Ratio]13.2 %Normal 11.5-15.0The [facility] [place] NorthComment on above:Performed By: #### [id number] #### [facility] [address] [place] [address], USAHematocrit (Bld) [Volume fraction]44.2 %Vppkgy32.0-45.0The [facility] [place] NorthComment on above:Performed By: #### 05542 #### [facility] [address] [place] [address], USAHemoglobin (Bld) [Mass/Vol]14.4 g/iOKqntvb30.0-15.0The [facility] [place] NorthComment on above:Performed By: #### [id number] #### [facility] [address] [address], USAIMMATURE GRANS0.4 %Normal0.0-1.0The [facility] [place] NorthComment on above:Performed By: #### [id number] #### [facility] [address] [place] [address], USALymphocytes (Bld) [#/Vol]1.8 10*3/uLNormal1.2-4.0The [facility] [place] NorthComment on above:Performed By: #### [id number] #### [facility] [address] [facility] [place] [address], USALymphocytes/100 WBC (Bld)23.3 %Qljxvz38.0-45.0The [facility] [place] NorthComment on above:Performed By: #### [id number] #### [facility] [address] [address], [facility] HOSPITALMCH (RBC) [Entitic mass]29.1 qpCeksjz56.0-33.0The [facility] NorthComment on above:Performed By: #### 04110 #### [facility] [address] [place] [address], USAMCHC (RBC) [Mass/Vol]32.6 g/rSDpiixj05.0-35.0The [facility] [place] NorthComment on above:Performed By: #### 67141 #### [facility] [address] [place] [address], USAMCV (RBC) [Entitic vol]89.3 hHFhfnnh00.0-98.0The [facility] NorthComment on above:Performed By: #### [id number] #### [facility] [address] [place] [address], USAMonocytes (Bld) [#/Vol]0.6 10*3/uLNormal0.1-1.0The [facility] NorthComment on above:Performed By: #### 66440 #### [facility] [address] [place] [address], USAMONOS7.6 %Normal5.0-12.0The [facility] NorthComment on above:Performed By: #### 20629 #### [facility] [address] [place] [address], USANeutrophils/100 WBC (Bld)64.4 %Oqzeft79.0-72.0The [facility] NorthComment on above:Performed By: #### 87297 #### [facility] [address] [facility] [address], USANucleated RBC/100 WBC (Bld) [Ratio]0 %Normal0-0The [facility] NorthComment on above:Performed By: #### [id number] #### [facility] [address] [address], USAPLAT YLM099 10*3/wKUppwua768-510Rny [facility] NorthComment on above:Performed By: #### 12784 #### [facility] [address] [address], USARBC (Bld) [#/Vol]4.95 10*6/uLNormal3.80-5.00The [facility] NorthComment on above:Performed By: #### 77408 #### [facility] [address] [place] [address], USAWBC (Bld) [#/Vol]7.59 10*3/uLNormal4.00-10.60The [facility] NorthComment on above:Performed By: #### 69314 #### [facility] [address] [place] [address], USACOMP METABOLIC PANELon 98-36-7579Ftlllnd [Mass/Vol]4.4 g/dL Normal3.5-5.7The [facility] NorthComment on above:Performed By: #### 76519, 27228, 21810 #### [facility] [address] [address], USAALKALINE NSOHMN62 IU/MVccuar24-314Mjx [facility] NorthComment on above:Performed By: #### 20002, 89319, 10904 #### [facility] [address] [facility] [address], USAALT [Catalytic activity/Vol]13 U/LNormal7-52The [facility] NorthComment on above:Performed By: #### 81849, 79478, 66139 #### [facility] [address] [facility] [address], USAAST [Catalytic activity/Vol]14 U/SAwztnf81-24Vvj [facility] NorthComment on above:Performed By: #### 00153, 55838, 28196 #### [facility] [address] [place] [address], USABilirubin [Mass/Vol]0.4 mg/dLNormal0.3-1.0The [facility] NorthComment on above:Performed By: #### 34325, 61638, 29024 #### [facility] [address] [place] [address], USACalcium [Mass/Vol]9.2 mg/dLNormal8.6-10.3The [facility] NorthComment on above:Performed By: #### 46842, 08584, 41247 #### [facility] [address] [place] [address], USAChloride [Moles/Vol]105 mmol/MImnbby96-888Wll [facility] NorthComment on above:Performed By: #### 75631, 92934, 16786 #### [facility] [address] [place] [address], USACO2 [Moles/Vol]28 mmol/SAtpnid22-31Icd [facility] NorthComment on above:Performed By: #### 45459, 17410, 08250 #### [facility] [address] [place] [address], USACreatinine [Mass/Vol]0.90 mg/dLNormal0.60-1.20The [facility] NorthComment on above:Performed By: #### 75249, 85026, 44631 #### [facility] [address] [place] [address], USAGFR/1.73 sq M predicted among blacks MDRD (S/P/Bld) [Vol rate/Area]mL/min/{1.73_m2}Normal>60The [facility] Comment on above:Performed By: #### 68403, 10998, 11769 #### [facility] [address] [place] [address], USAGFR/1.73 sq M predicted among non-blacks MDRD (S/P/Bld) [Vol rate/Area]mL/min/{1.73_m2}Normal>60The [facility] Comment on above:Performed By: #### 71675, 72487, 91406 #### [facility] [address] [place] [address], USAGlucose [Mass/Vol]86 mg/pTDnmkwd66-582Yqz [facility] NorthComment on above:Performed By: #### 11382, 69813, 99207 #### [facility] [address] [place] [address], USAPotassium [Moles/Vol]3.9 mmol/LNormal3.5-5.1The [facility] NorthComment on above:Performed By: #### 77282, 36859, 42580 #### [facility] [address] [place] [address], USAProtein [Mass/Vol]7.1 g/dLNormal6.0-8.3The [facility] NorthComment on above:Performed By: #### 14293, 15254, 47518 #### [facility] [address] [place] [address], USASodium [Moles/Vol]138 mmol/EWocuzw038-458Ehe [facility] NorthComment on above:Performed By: #### 93052, 65479, 04559 #### [facility] [address] [place] [address], USAUrea nitrogen [Mass/Vol]11 mg/dLNormal7-25The [facility] NorthComment on above:Performed By: #### 61011, 78146, 80612 #### [facility] [address] [place] [address], USALIPID PROFILEon 51-28-4249Lvxmocktlgh [Mass/Vol]162 mg/dL Yqrobm462-518Gcx [facility] NorthComment on above:Result Comment: CHOLESTEROL REFERENCE RANGE: 20 YEARS AND OLDER CARDIOVASCULAR RISK Less than 200 mg/dl Low Risk 200 to 239 mg/dl Borderline Risk 240 mg/dl and greater High RiskPerformed By: #### 98606, 37700, 23631 #### [facility] [address] [place] [address], USACholesterol in HDL [Mass/Vol]38 mg/vHUkfmyl23-40Ttt [facility] NorthComment on above:Result Comment: Slight variation in normal range could be due to gender and/or age. HDL CHOLESTEROL REFERENCE RANGE: 20 years and older Cardiovascular Risk > or =60 mg/dL Desirable 40 TO 59 mg/dL Low Risk <40 mg/dL High RiskPerformed By: #### 56972, 82387, 05132 #### [facility] [address] [place] [address], USACholesterol in LDL [Mass/Vol]111 mg/dLNormal0-130The [facility] NorthComment on above:Result Comment: LDL IS A CALCULATION LDL IS ONLY VALID IF THE TRIG IS LESS THAN 400.Performed By: #### 34859, 63502, 34772 #### [facility] [address] [place] [address], USACholesterol.total/Cholesterol in HDL [Mass ratio]4.3 {ratio}Normal0.0-4.5The [facility] NorthComment on above: Performed By: #### 27632, 41858, 60740 #### [facility] [address] [place] [address], USANON-HDL EUWFYGICVML695 mg/dLNormalThe [facility] NorthComment on above:Performed By: #### 74135, 99253, 12578 #### [facility] [address] [place] [address], USATriglyceride [Mass/Vol]66 mg/wDJjyjjc46-641Imp [facility] NorthComment on above:Result Comment: TRIGLYCERIDE REFERENCE RANGE: 20 YEARS AND OLDER CARDIOVASCULAR RISK LESS THAN 150 mg/dl LOW RISK 150 TO 199 mg/dl BORDERLINE RISK 200 mg/dl AND GREATER HIGH RISKPerformed By: #### 32299, 47205, 46818 #### [facility] [address] [place] [address], USAVLDL CHOL13 mg/dLNormal0-40The [facility] NorthComment on above:Performed By: #### 64105, 52655, 74241 #### [facility] [address] [place] [address], USATSH3 WITH REFLEX FT4on 60-53-4271BRW 3RD GENERATION1.73 uIU/mLNormal0.34-5.60The [facility] - [facility] NorthComment on above: Performed By: #### 51328, 78425, 62688 #### [facility] [address] [place] [address], [facility] Vital Signs Date TimeVital SignValuePerforming RneacdhjvXugyfvcp14-83-4157 11:00-0500Body mass index (BMI) [Ratio]38.43 kg/m2Barb CLOUD Work Phone: [facility] HospitalEhsxtekrig05-33-7866 11:00-0500Body .05 kgBarb CLOUD Work Phone: [phone]-[facility] HospitalIisbnlwoyr60-37-2869 11:00-0500Diastolic blood apsouqox77 mm[Hg]Barb CLOUD Work Phone: [facility] HospitalHfminrhkkz50-63-7751 11:00-0500Systolic blood gjviuxrg392 mm[Hg]Barb CLOUD Work Phone: [facility] HospitalRzgtmourtu91-85-4845 09:17-0400Body ifovhh437.26 cmJ.[facility]. [facility]2025 09:17-0400Body mass index (BMI) [Ratio]38.2 kg/a0LpbxtoyuyJ.W. [facility] Hospital2025 09:17-0400Body werdomoozuz63.4 [degF][facility]2025 09:17-0400Body .48 kgJ.W. [facility]2025 09:17-0400Diastolic blood rgpogvie86 mm[Hg][facility]2025 09:17-0400 Heart rate77 /[facility]2025 09:17-0400 Respiratory rate18 /[facility]2025 09:17-0400 SaO2% (BldA) [Mass fraction]98 %[facility]2025 09:17-0400Systolic blood pwqneesy552 mm[Hg][facility] 07-05-2025 12:58-0400Body mass index (BMI) [Ratio]36.56 kg/m2Eric Gaines DO Work Phone: [facility]08-12-2025 12:58-0400Body puqvkr864.49 kgEric Gaines DO Work Phone: [facility]08-12-2025 12:58-0400Diastolic blood kecctron27 mm[Hg]Avery Gaines DO Work Phone: [facility]08-12-2025 12:58-0400Heart rate80 /min Avery Gaines DO Work Phone: [facility]08-12-2025 12:58-0400Systolic blood yfptftug420 mm[Hg]Avery Gaines DO Work Phone: [facility]04-22-2025 11:01-0400Body .4 cmMoshawanda Jacobo RAW SHELLFISH PREPARER.SENIOR FUNCTIONAL ANALYST Work Phone: [phone] Bethesda North HospitalKcmspj31-90-5686 11:01-0400Body mass index (BMI) [Ratio]36.94 kg/j4Mbgletrsshawanda Jacobo RAW SHELLFISH PREPARER.SENIOR FUNCTIONAL ANALYST Work Phone: [phone] Gyxxmw13-50-3866 11:01-0400Body temperature 98.2 [degF]Maggy Jacobo RAW SHELLFISH PREPARER.SENIOR FUNCTIONAL ANALYST Work Phone: [phone] Qyekxo14-03-4337 11:01-0400Body dmbylu277.65 kgMoshawanda Jacobo RAW SHELLFISH PREPARER.SENIOR FUNCTIONAL ANALYST Work Phone: [phone] Kvqdts38-62-6947 11:01-0400Diastolic blood xdnahmbq89 mm[Hg]Maggy Jacobo RAW SHELLFISH PREPARER.SENIOR FUNCTIONAL ANALYST Work Phone: [phone] Ueltse96-93-7877 11:01-0400Heart rate83 /min Maggy Jacobo RAW SHELLFISH PREPARER.SENIOR FUNCTIONAL ANALYST Work Phone: [phone] Lxekmw55-68-3635 11:01-0400Systolic blood fwwkczon845 mm[Hg]Maggy Gurvindermaryuri YEUNGSENIOR FUNCTIONAL ANALYST Work Phone: YTriHealth Bethesda North HospitalNkjzdo35-61-9097 13:22-0400Body mass index (BMI) [Ratio]33.97 kg/n0FojhzThien Silva MD Work Phone: [facility] HospitalLipwpivwwx82-90-9599 13:22-0400Body ypamxd586.33 kgThien Silva MD Work Phone: [facility] HospitalKijgxwfnea02-60-2627 13:22-0400Diastolic blood vlnikeko52 mm[Hg]Thien Silva MD Work Phone: [facility] HospitalLpyocujufl67-19-6597 13:22-0400Systolic blood voswdiyu663 mm[Hg]Thien Silva MD Work Phone: [facility] HospitalWbjfjafgod48-17-0227 10:42-0500Body bxsdys633.5 cmVincenzo Mukherjee MD Work Phone: [phone] Bethesda North HospitalHufxxl63-68-2148 10:42-0500Body mass index (BMI) [Ratio]36.61 kg/d0TdtlcyVincenzo Mukherjee MD Work Phone: [phone] Bethesda North HospitalWkmtvx62-25-6816 10:42-0500Body temperature 98.4 [degF]Vincenzo Mukherjee MD Work Phone: [phone] Bethes[facility] North HospitalXgdrue93-56-3078 10:42-0500Body xruttv281.75 kgVincenzo Mukherjee MD Work Phone: [phone] Bethesda North HospitalAkkose45-84-8734 10:42-0500Diastolic blood qzcpiize56 mm[Hg]Vincenzo Mukherjee MD Work Phone: [phone] Bethesda North HospitalVlftnb15-59-6673 10:42-0500Heart rate82 /min Vincenzo Mukherjee MD Work Phone: [phone] health [facility] Pfnoxb16-65-8042 10:42-0500Systolic blood gkgirjxq231 mm[Hg]Vincenzo Mukherjee MD Work Phone: [phone] [place], [place] 6017811-20-2024 13:32-0500Body mass index (BMI) [Ratio]35.44 kg/m2Amy Marly CLOUD Work Phone: [phone]11-20-2024 13:32-0500Body vkozcm120.86 kgBarb Marly CLOUD Work Phone: [phone] [place] [address]-20-2024 13:32-0500Diastolic blood lzuiwuzi93 mm[Hg]Barb CLOUD Work Phone: [phone] [place] [address]-20-2024 13:32-0500Systolic blood oyqvcmbi260 mm[Hg]Barb CLOUD Work Phone: [phone] [place] [address]-08-2024 08:25-0500Body .3 cmSudheer Chacon MD Work Phone: [phone] [place], [place] 2972611-08-2024 08:25-0500Body mass index (BMI) [Ratio]35.59 kg/l9FfqgtiSudheer Chacon MD Work Phone: [phone] [place] [address]-08-2024 08:25-0500Body uabcmh558.32 kgSudheer Chacon MD Work Phone: [phone] [place] [address]-08-2024 08:25-0500Diastolic blood mm[Hg]Sudheer Chacon MD Work Phone: 1(419)[address] [place] [address]-08-2024 08:25-0500Systolic blood fpkockyu772 mm[Hg]Sudheer Chacon MD Work Phone: 1(419)[address] [place], [place] 2972610-25-2024 09:49-0400Body bhysfk556.3 cmSudheer Chacon MD Work Phone: 1(419)[address] [place], [place] 2972610-25-2024 09:49-0400Body mass index (BMI) [Ratio]35.15 kg/d4QdfuntSudheer Chacon MD Work Phone: 1(419)[address] [place], [place] 2972610-25-2024 09:49-0400Body yntxcv855.96 kgSudheer Chacon MD Work Phone: 1(419)[address] [place], [place] 2972610-25-2024 09:49-0400Diastolic blood oyziizir48 mm[Hg]Sudheer Chacon MD Work Phone: [id number] 09:49-0400Systolic blood yrwlpovs331 mm[Hg]Sudheer Chacon MD Work Phone: [facility]OSaint [facility]'s HospitalQxksnzmhdg33-53-8313 13:39-0400Body heuian765.7 cmFevon Forte EXECUTIVE ADMINISTRATIVE ASSISTANT Work Phone: [facility] HospitalRmyrnayhda69-34-9832 13:39-0400Body mass index (BMI) [Ratio]35.81 kg/b1Mrwplalvon Guzmangel EXECUTIVE ADMINISTRATIVE ASSISTANT Work Phone: [facility] HospitalTyyjravbdn15-27-2422 13:39-0400Body widgdr714.82 kgFevon Guzmangel EXECUTIVE ADMINISTRATIVE ASSISTANT Work Phone: [facility] HospitalDhktuqenqw59-69-1313 13:39-0400Diastolic blood gjuoeiif41 mm[Hg]Ro Forte EXECUTIVE ADMINISTRATIVE ASSISTANT Work Phone: [facility] HospitalXojkuevgwy48-26-9718 13:39-0400Heart rate78 /min Ro Guzmangel EXECUTIVE ADMINISTRATIVE ASSISTANT Work Phone: [facility] HospitalEdyskhjrxd90-95-2186 13:39-0400Systolic blood mm[Hg]Ro Guzmangel EXECUTIVE ADMINISTRATIVE ASSISTANT Work Phone: [facility] HospitalXrvnrczjxa95-19-3199 10:53-0400Body mass index (BMI) [Ratio]36.31 kg/y9Ecuur Addie DO Work Phone: [facility] HospitalGabfyxhfmx56-48-4603 10:53-0400Body iwypzx334.32 kgCorey Addie DO Work Phone: [facility] HospitalYiitabnskb57-63-8118 10:53-0400Diastolic blood tqkdowlg10 mm[Hg]Jeremy Addie DO Work Phone: [facility] HospitalZkhdosrqmv41-01-2893 10:53-0400Systolic blood rildsazw338 mm[Hg]Jeremy Addie DO Work Phone: [place] [address]Luedrppunv57-92-7334 09:11-0400Body mass index (BMI) [Ratio]35.75 kg/m2Barb Marly CLOUD Work Phone: [place] [address]Qugobjxnta96-26-4114 09:11-0400Body ollsgn544.65 kgBarb Marly PA Work Phone: [place] [address]Tbjzuezkfc47-68-1994 09:11-0400Diastolic blood kjsutlkm08 mm[Hg]Barb Marly PA Work Phone: [place] [address]Ywazrqnesh18-44-3480 09:11-0400Systolic blood jkaebbkd781 mm[Hg]Barb Marly PA Work Phone: [facility] HospitalDpzbkkzsfv18-18-8452 09:09-0400Body mass index (BMI) [Ratio]36.19 kg/f4Sjhqqcpvon Forte EXECUTIVE ADMINISTRATIVE ASSISTANT Work Phone: [facility]OS[facility] HospitalEcuhybdqjs69-85-8199 09:09-0400Body vixetb839.96 kgFevon Forte EXECUTIVE ADMINISTRATIVE ASSISTANT Work Phone: [place] [address]Rehiakjxev60-06-2565 09:09-0400Diastolic blood enjdwfgv77 mm[Hg]Ro Forte EXECUTIVE ADMINISTRATIVE ASSISTANT Work Phone: [place] [address]Ireffgsdre10-59-7980 09:09-0400Heart rate71 /min Ro Forte EXECUTIVE ADMINISTRATIVE ASSISTANT Work Phone: [place] [address]Owgxvtsouq96-96-8434 09:09-0400Systolic blood gtwxooxb281 mm[Hg]Ro Forte EXECUTIVE ADMINISTRATIVE ASSISTANT Work Phone: [facility] Encounters Encounter DateEncounter TypeCare ProviderFacilityStart: 10-04-2025 End: 89-23-5683Hxnlbl flowsheetCorey Addie DO Work Phone: [facility] [place] OBGYNStart: 10-04-2025 End: 87-96-3962Sssxdz flowsheetCorey Addie DO Work Phone: [facility] [place] OBGYNStart: 10-04-2025 End: 59-98-4818sinrqjcvydNANKJ FAZIONot AvailableStart: 09-29-2025 End: 91-51-5618Uoepfw flowsheetBarb Marly CLOUD Work Phone: NO [place] OBGYNStart: 09-29-2025 End: 72-77-5433Fzkgos flowsheetBarb CLOUD Work Phone: noMS M[place] OBGYNStart: 09-29-2025 End: 36-88-7692Elrzgsmqn Result EncounterBarb Marly CLOUD Work Phone: NOMS External Department UnsolicitedStart: 09-29-2025 End: 43-12-3571Zxnrdvp encounter procedureBarb Marly CLOUD Work Phone: noms HealthcareStart: 09-29-2025 End: 24-40-4539Ifapfdmw preventive med est patient 18-39 yrsBarb Marly CLOUD Work Phone: noMS [place] OBGYNComment on above:Well woman exam with routine gynecological exam; History of ovarian cyst; Pain in female genitalia on intercourse; Chronic right-sided low back pain, unspecified whether sciatica presentStart: 09-29-2025 End: 45-90-6472ioyobylaymDFA RAMEYNot AvailableStart: 09-20-2025 End: 91-44-6869ixqgoyguycBJGKJ COHENFacility:[facility] Centertart: 09-14-2025 End: 79-10-5112hsihaypfimSBB STAFF-[facility] ClydeStart: 09-14-2025 End: 87-14-6565Etogrcf encounter procedureRoxann Garsia RAW SHELLFISH PREPARER-[facility] Jonathan Work Phone: Start: 09-06-2025 End: 66-52-0403faifeihinxLFXOF COHENFacility:[facility] Centertart: 07-14-2025 End: 18-66-2707asjocgwoeuSRWY [facility] Hospitaltart: 07-14-2025 End: 51-32-0301Fldtngrrb for general adult medical examination without abnormal findingsJOSTEFANI [facility] Hospitaltart: 07-13-2025 End: 98-46-9219xdacqssproUuqh P Gaines DO Work Phone: NeurologyComment on above:Day 5 Update on Indomethacin MedicationStart: 07-05-2025 End: 55-34-0902Wshjddc encounter procedureEric P Gaines DO Work Phone: NeurologyComment on above:Chronic daily headache (Primary Dx); Hemicrania continua; Intractable chronic migraine without aura and without status migrainosus; Chronic migraine without aura, intractable, without status migrainosus; Occipital neuralgia of right side; Migraine without aura and without status migrainosus, not intractable; Trigeminal nerve disorder; Right trigeminal neuralgiaStart: 07-05-2025 End: 62-62-3549evimlkytwiBFXQ P BARONFacility:[facility] Centertart: 06-02-2025 End: 74-03-6566VM/PT/Speech VisitMark Opnew [facility] PT Work Phone: [place] [facility] TherapyComment on above:Trigeminal nerve disorder (Primary Dx); Chronic migraine without aura, intractable, without status migrainosusStart: 06-02-2025 End: 38-81-7518ytzyspzhpbMVTQBrown Memorial Hospitaltart: 05-14-2025 End: 67-88-1555yxxkakbdpyWWCPNSFNorton Community Hospital Ambulatory PPGStart: 05-05-2025 End: 69-96-8809NL/PT/Speech VisitMark Opnew [facility] Work Phone: [facility] TherapyComment on above:Trigeminal nerve disorder (Primary Dx); Chronic migraine without aura, intractable, without status migrainosusStart: 04-13-2025 End: 79-81-8996jnfwlxychrSEXKSTOX HAMDANFacility:[facility] Centertart: 04-13-2025 End: 15-13-0037dglqtujcoxLUADKFOG HAMDANFacility:[facility] Centertart: 03-30-2025 End: 22-51-0984Vysvmnmez department patient visitSTEVEN LEPSKYFacility:[facility] Centertart: 03-15-2025 End: 80-68-8758Adhqjhx encounter procedureMoshawanda Jacobo RAW SHELLFISH PREPARER.SENIOR FUNCTIONAL ANALYST Work Phone: Neurology Headache [place] FHCComment on above:Chronic migraine without aura, intractable, without status migrainosus (Primary Dx); Trigeminal nerve disorder; Occipital neuralgia of right side; Chronic sinusitis, unspecified locationStart: 03-15-2025 End: 16-77-7592qzqtkgrrzmVHLMJZSJ ADNFacility:[facility] Centertart: 03-05-2025 End: 11-12-4975qrwwedugbdVxaqoihh Odalis RAW SHELLFISH PREPARER.SENIOR FUNCTIONAL ANALYST Work Phone: NeurologyComment on above:Symptoms-upcoming apptStart: 03-03-2025 End: 14-65-9689vubrllyihiIKIUGGRJW JUANIFacility:[facility] Start: 03-03-2025 End: 88-46-0436Dkasumwg [facility] Papito RAW SHELLFISH PREPARER.SENIOR FUNCTIONAL ANALYST Work Phone: NeurologyComment on above:Right trigeminal neuralgia (Primary Dx); Trigeminal nerve disorder; Occipital neuralgia of right sideStart: 02-21-2025 End: 99-43-4732Yeenlh Delmer Silva MD Work Phone: NOGS SWS OBStart: 02-21-2025 End: 60-42-1003Tgfciu Delmer Silva MD Work Phone: NOEI SWS OBStart: 02-21-2025 End: 02-13-8355Klwyfh outpatient new 45 Darryn Silva MD Work Phone: NOTX SWS OBComment on above:Mass of right breast, unspecified quadrant (Primary Dx)Start: 02-21-2025 End: 60-67-7169yysoxseetoVCTVJAna Maria Soni AvailableStart: 02-15-2025 End: 62-20-4501ysueshjwzmXATXW A PETITTINot AvailableStart: 01-06-2025 End: 52-90-0464zmdksydmhcNANICAON HAMDANFacility:[facility] Centertart: 01-06-2025 End: 48-68-0670Vzuysdf encounter procedureMoshawanda Jacobo OBED Work Phone: NeurologyComment on above:Right trigeminal neuralgia Start: 01-06-2025 End: 67-69-8885Wuecygtfcetm consultation with patientMaggy Jacobo OBED Work Phone: NeurologyStart: 12-27-2024 End: 34-45-4443cqvptjhvxyJNEGYNADQ [facility] Start: 12-14-2024 End: 79-74-2424ursmrxdjgsUJTIVJ FIDELINASAINT LOUIS UNIVERSITY HEALTH SCIENCE CENTERFacility:[facility] Centertart: 12-14-2024 End: 22-84-4319Zrixgzsatx hospital visit by physicianalvin [facility] Jessica (1.5t) Work Phone: RadiologyComment on above:Right trigeminal neuralgia [G50.0]Start: 11-23-2024 End: 25-55-8330revepydjaaCANJMC GOSAINT LOUIS UNIVERSITY HEALTH SCIENCE CENTERFacility:[facility] Centertart: 11-23-2024 End: 86-41-6122Ailvow outpatient new 30 minutesVincenzo Mukherjee MD Work Phone: Neurology [facility] FHCComment on above:Right trigeminal neuralgia (Primary Dx)Start: 10-14-2024 End: 71-04-7545pwbklzhvwlXTIV [facility] Hospitaltart: 10-13-2024 End: 21-14-7435Miagfg Gerry CLOUD Work Phone: NOMS BCP OBStart: 10-13-2024 End: 54-06-8729Tsoect Gerry CLOUD Work Phone: NOMS BCP OBStart: 10-13-2024 End: 15-35-3536Mzzbob outpatient visit 10 minutesBarb CLOUD Work Phone: noms BCP OBComment on above:Encounter to discuss test resultsStart: 10-13-2024 End: 03-04-0532oomvymskbvCDA RAMEYNot AvailableStart: 10-10-2024 End: 13-94-4577pyiumwcurhDKCUBRWPIGlenbeigh Hospital Start: 10-07-2024 End: 17-93-3975Axkajvtwx Result EncounterSudheer Chacon MD Work Phone: noms External Department UnsolicitedStart: 10-07-2024 End: 76-04-7358Ianxcbsqk Result EncounterSudheer Chacon MD Work Phone: noms External Department UnsolicitedStart: 10-06-2024 End: 58-85-7363gojccheglmMLUIOUMZTKettering Health Springfield Start: 10-01-2024 End: 47-66-6658Tubfjz flowsheetSudheer Chacon MD Work Phone: noms ENT NORWALKStart: 10-01-2024 End: 17-29-4623Tpzelzyso Result EncounterSudheer Chacon MD Work Phone: noms External Department UnsolicitedStart: 10-01-2024 End: 88-96-6922Zrbfygybd Result EncounterSudheer Chacon MD Work Phone: noms External Department UnsolicitedStart: 10-01-2024 End: 95-10-1915csjpsvciosTnzrij H TimmisFacility:FTMCStart: 10-01-2024 End: 39-42-6585Ebqzxrm encounter procedureSudheer Chacon [facility] Start: 10-01-2024 End: 64-92-5311Iwlrqr outpatient visit 25 minutesSudheer Chacon MD Work Phone: noms ENT NORWALomment on above:LAD (lymphadenopathy) of left cervical region (Primary Dx)Start: 09-27-2024 End: 55-63-1055Zdqvenohg encounterNicholas Riedy [facility]OM[facility] [place] [address] Start: 09-26-2024 End: 18-15-9839Rqkszyesq department patient visitRHONDA [facility] Hospitaltart: 09-23-2024 End: 87-45-7116yzsnogflnrOBMWLFKWU [facility] Start: 09-17-2024 End: 85-31-0593Oupalq Lloyd Chacon MD Work Phone: noms ENT NORWALKStart: 09-17-2024 End: 65-49-5421Fpnose Lloyd Chacon MD Work Phone: noms ENT NORMIKAYLAKStart: 09-17-2024 End: 82-68-2571Bixdsr outpatient new 45 minutesSudheer Chacon MD Work Phone: noms ENT [facility]OSPITALWALKComment on above:Right facial pain (Primary Dx)Start: 09-15-2024 End: 77-81-9960Otcjqylpj encounterLogan Schwjermain [facility] [address] Start: 09-14-2024 End: 61-99-2916Lvqcqmpge encounterNicholas Kim [place] NEUROStart: 09-13-2024 End: 52-59-7109Djiefg flowsheetFelicia C Windnagel EXECUTIVE ADMINISTRATIVE ASSISTANT Work Phone: noMS PCF NEUROLOGYStart: 09-13-2024 End: 70-14-6936Wzohhy flowsheetFelicia C Windnagel EXECUTIVE ADMINISTRATIVE ASSISTANT Work Phone: noMS PCF NEUROLOGYStart: 09-13-2024 End: 58-65-5830Twzjyd outpatient visit 40 minutesFelicia C Windnagel EXECUTIVE ADMINISTRATIVE ASSISTANT Work Phone: noms PCF NEUROLOGYComment on above:Occipital neuralgia of right side (Primary Dx); Trigeminal neuralgia of right side of face (CMS/HCC); DiplopiaStart: 09-08-2024 End: 15-24-4573Gbsezz outpatient visit 15 minutesCorey Addie DO Work Phone: NOMS BCP OBComment on above:Irregular periods; PCOS (polycystic ovarian syndrome); Female infertility; Mood disorder (CMS/HCC)Start: 08-26-2024 End: 50-47-9042Gelpjxpoc encounterCharlotte AUSTIN Work Phone: [facility] Family MedicineStart: 08-25-2024 End: 41-19-8459Ntmtnpllj Result EncounterAmy Marly CLOUD Work Phone: noMS External Department UnsolicitedStart: 08-25-2024 End: 57-66-5683Fncoyqnak Result EncounterAmy Marly CLOUD Work Phone: noms External Department UnsolicitedStart: 08-24-2024 End: 96-37-3632Aiuclbeoy Result EncounterAmy Marly CLOUD Work Phone: noms External Department UnsolicitedStart: 08-24-2024 End: 57-20-0386Lyddbzzby Result EncounterAmy Marly CLOUD Work Phone: noms External Department UnsolicitedStart: 08-19-2024 End: 52-22-2860Cgwcns flowsheetAmy Marly CLOUD Work Phone: noms BCP OBStart: 08-19-2024 End: 30-89-8502Rbwszwhon Result EncounterAmy Marly CLOUD Work Phone: noms External Department UnsolicitedStart: 08-19-2024 End: 83-44-6568Ferytqbxb Result EncounterAmy Marly CLOUD Work Phone: noms External Department UnsolicitedStart: 08-19-2024 End: 83-15-6851Vsvytos encounter procedureBarb CLOUD Work Phone: [facility] Work Phone: Start: 08-19-2024 End: 24-57-1422Yqdbofgw preventive med est patient 18-39 yrsBarb CLOUD Work Phone: noms BCP OBComment on above:Well woman exam with routine gynecological exam; Irregular periods; PCOS (polycystic ovarian syndrome)Start: 08-17-2024 End: 31-55-7482Avhrip flowsheetFelicia C Alexnagel EXECUTIVE ADMINISTRATIVE ASSISTANT Work Phone: noms PCF NEUROLOGYStart: 08-17-2024 End: 16-06-4930Qpoaqg flowsheetFelicia C Alexnagel EXECUTIVE ADMINISTRATIVE ASSISTANT Work Phone: noms PCF NEUROLOGYStart: 08-17-2024 End: 61-22-5496Qunobd outpatient visit 25 minutesFelicia Ladan Alexnagel EXECUTIVE ADMINISTRATIVE ASSISTANT Work Phone: noms F NEUROLOGYComment on above:Occipital neuralgia of right side (Primary Dx); Diplopia; Dizziness; Saddle anesthesia; Chronic bilateral low back pain without sciaticaStart: 08-10-2024 End: 27-67-0323Qqotflf encounter procedurePRES[facility] Ro Forte Work Phone: [facility] Main [place] Work Phone: Start: 08-10-2024 End: 74-76-7432uowvawdetbVBQUniversity [facility] Work Phone: Start: 06-25-2024 End: 76-20-8505Qygirko encounter procedurePRESCOTT [facility] Ro Forte Work Phone: [facility] [place] Work Phone: Start: 06-25-2024 End: 99-28-3096asjnlsjhviWNQ [facility] Work Phone: Start: 06-18-2024 End: 27-63-4088Dykskx OnlyNot In System Ref ProvProMedica Physicians Behavioral HealthStart: 06-11-2024 End: 35-08-3076Dqrnhptls encounterSdamien Yoon [facility] Behavioral HealthComment on above:referralStart: 05-31-2024 End: 94-95-0395cmhigjifupOSOFRCD Ladan FORTEProMedica Rancho Springs Medical Centertart: 07-08-2023 End: 37-81-5918Utppwjm encounter procedureJENNIFER E DONALDO [facility] start: 03-04-2023 End: 17-26-3260ggjhdjmskvTYBNU SHAMMOFacility:B3Ovbix: 42-47-2105Kjwktbinh for general adult medical examination without abnormal findingsLUCAS SHAMMOThe Eure[facility] HospitalStart: 02-25-2023 End: 88-91-8841xqprxbmmjnBOWJB SHAMMOFacility:W4Prrdg: 02-25-2023 End: 78-88-8844Ajfuvyrro for general adult medical examination without abnormal findingsLUCAS SHAMMOFacility:B7Ksabh: 02-13-2023 End: 13-17-1261bfuqmtzuzuJSLQR SHAMMOFacility:H1 Procedures DateProcedureProcedure DetailPerforming ClinicianStart: 94-22-6411ZUP,APTIMA HPV,AGE GDLNBarb CLOUD Work Phone: Start: 05-14-2025 End: 72-61-4020Jimgetfgibl diagnostic eval w/medical servicesGeneralized anxiety disorderShasara Lemus MD Work Phone: Comment on above:Generalized anxiety disorder (Primary Dx); Anxiety disorder, unspecified typeStart: 92-12-8318Vqqqo depression screening assessmentShasara Lemus MD Work Phone: Start: 12-14-2024 End: 76-29-4655Cbe brain brain stem w/o w/contrast Danyel Mukherjee MD Work Phone: Start: 21-46-6296Wx soft tissue neck w/contrast Mark Chacon MD Work Phone: Start: 39-90-2235HJYT CBC W/ AUTO DIFFHilary Andrés Chacon MD Work Phone: Start: 82-07-2231DM PELVIS W/ TRANSVAGINALAmy Marly CLOUD Work Phone: Start: 21-71-6348AMM CBC WITH AUTO DIFFBarb CLOUD Work Phone: Start: 57-71-3717GNH,APTIMA HPV,AGE GDLNBarb Marly CLOUD Work Phone: Start: 93-23-0353Vetqtxqntay observation [Identifier] in Cervix by Cyto stainCorey Addie DO Work Phone: Start: 65-46-4137XR lumbar spine wo conANP-BC Ro Windnagel Work Phone: Start: 01-07-3185QU pre/post mri xrayANP-BC Ro Windnagel Work Phone: Start: 43-75-8479AMK of cervical spine without contrastANP-BC Ro Windnagel Work Phone: Start: 84-60-5183XBG REFERRAL TO PSYCHIATRYNot In System Ref ProvStart: 12-99-7875Jkonmubqqci observation [Identifier] in Cervix by Cyto stainFelicmariia Forte EXECUTIVE ADMINISTRATIVE ASSISTANT Work Phone: Start: 16-16-2478Klgmakuoyhg observation [Identifier] in Cervix by Cyto stainSdamien Sagastume RMADilation and curettageJENNIFER DONALDO HysterectomyJENNIFER DONALDO TonsillectomyJENNIFER DONALDO Plan of Treatment DateCare ActivityDetailAuthorStart: 68-81-6238Vxanf microalbumin profile DTaP,Tdap,Td Vaccine (2 - Td or Tdap)[facility] Hospitaltart: 42-31-4507Efgwzxfep for malignant neoplasm of cervixNOMS HealthcareStart: 29-77-0808Abdujrlwj for malignant neoplasm of cervixPap SmearNOMS HealthcareStart: 02-21-2026 End: 78-85-5868Ihuivaq encounter procedureNOMS SWS DERMStart: 10-04-2025 End: 79-47-4617Axmvdul encounter procedureNOMS [place] OBGYNComment on above: ArrivedStart: 09-29-2025 End: 41-32-1573Munkpnf encounter procedureNOMS [place] OBGYNComment on above: ArrivedStart: 09-06-2025 End: 38-75-0834Zlbfhtk encounter hybrtfrtu12/14/2025 7:30 AM EDT Office Visit [facility] [address] [address] Yaron Loza MD [address] [place], [place] [id number] referred for the following Dx: 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 Avery Mai at 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 Avery Mai at 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]Start: 05-62-9156Nzmmznfke for malignant neoplasm of cervixPap SmearNorthwestern Medical CenterMorf Media Health SystemStart: 06-02-2025 End: 56-10-2426xipplhosgt12/10/2025 2:15 PM EDT OT/PT/Speech Visit [facility] [address] [facility] [place] [address] Jennifer Lopez PT [address] [place] [address] no copay Chronic migraine without aura, intractable, without status migrainosus [G43.719][facility] TherapyComment on above:no copay Chronic migraine without aura, intractable, without status migrainosus [G43.719]Start: 04-13-2025 End: 38-57-4160sdyjnyyepj93/21/2025 12:15 PM EDT OT/PT/Speech Visit [facility] [address] [place] [address] Jennifer Lopez, PT [address] [place] [address] Chronic migraine without aura, intractable, without status migrainosus [G43.719][facility] Physical TherapyComment on above:Chronic migraine without aura, intractable, without status migrainosus [G43.719]Start: 04-05-2025 End: 44-28-4082Mickof-up wbczoqwlr90/13/2025 9:00 AM EDT [facility] Neurology Headache [facility] [address] [place] [address] Maggy Jacobo, RAW SHELLFISH PREPARER.SENIOR FUNCTIONAL ANALYST [address] [place] [address] Follow upNeurology Headache [facility] CenterCComment on above:Follow upStart: 03-15-2025 End: 11-59-1275Tkwwhd-up xaciysiei36/22/2025 11:30 AM EDT [facility] Neurology Headache [facility] [address] [place] [address] Maggy Jacobo, RAW SHELLFISH PREPARER.SENIOR FUNCTIONAL ANALYST [address] [place], [place] [address] Follow up - wooshing sound in ears, and head and neck painNeurology Headache [facility] CenterCComment on above: Follow up - wooshing sound in ears, and head and neck painStart: 02-21-2025 End: 67-38-7659VFP Breast - bilateral diagnosticBilateral diagnostic mammogram with tomosynthesis Imaging Routine Mass of right breast, unspecifiedquadrant Expected: 02/21/2025, Expires: 04/23/2026[facility] Work Phone: comment on above:Expected: 02/21/2025, Expires: 04/23/2026Start: 02-21-2025 End: 02-28-7807Pomyolj encounter weroqrgla12/31/2025 1:30 PM EDT Office Visit [facility] [address] [place] [address] Thien Silva MD [address] [place] [address] Well woman exam with routine gynecological examNOMS [facility] OB Comment on above:Well woman exam with routine gynecological examStart: 02-15-2025 End: 98-56-9533Ragiqpw encounter /25/2025 9:20 AM EDT Office Visit [facility] DERM [address] [place] [address] Bruno Frost MD [address] [place] [address] [facility] DERMStart: 01-06-2025 End: 21-75-2992Rswoyiz encounter rjanncyba38/13/2025 8:00 AM EST [facility] Neurology [address] [place] [address] Maggy Jacobo APRN.SENIOR FUNCTIONAL ANALYST [address] [place], [place] [id number] NeurologyStart: 12-14-2024 End: 19-86-0489Oqufvxi encounter procedureRadiologyComment on above:Right trigeminal neuralgia [G50.0]Start: 11-09-2024 End: 28-92-6067Aidevgl encounter biewcjokv97/17/2024 3:00 PM EST Office Visit [facility] [address] [place] [address] Zac Tay, [address], [place] [address] [facility] Family MedicineStart: 10-19-2024 End: 59-82-4722Jutwqpw encounter nztbumnup68/26/2024 10:20 AM EST Office Visit [facility] [place] [address] [place] [address] Francine Mallory PA [address] [place] [address] [facility] [place] [facility] ROUTEStart: 10-18-2024 End: 60-97-8455Vxjuqkx encounter dntrqeqtg74/25/2024 9:40 AM EST Office Visit [facility] [address] [facility] [address] [place] [address] Sudheer Chacon MD [address] [facility] [address] [place], [place] [address] [facility] ENT NORWALKStart: 10-13-2024 End: 94-01-9680Pidbzbl encounter avzgbtkdt60/20/2024 1:10 PM EST Office Visit [facility] [address] [place] [address] Barb Luke PA [address] [place] [address] ArrivedNOMS BCP OBComment on above:ArrivedStart: 10-07-2024 End: 03-74-2155Zczateg encounter czeeuogfi87/14/2024 12:20 PM EST Office Visit [facility] [address] [facility] [address] [place] [phone] Francine Mallory PA [address] [place] [address] NEUROLOGYStart: 10-05-2024 End: 31-34-2960Shymycl encounter auizvnnqz16/12/2024 8:10 AM EST Office Visit [facility] [address] [place] [address] Jeremy Real, DO [address] [place] [address] NOMS BCP OBStart: 10-01-2024 End: 33-69-0865Gtbomca encounter iulikhgfp12/08/2024 8:30 AM EST Office Visit [facility] [address] [place] [phone] Sudheer Chacon MD [address] [facility] [address] [place] [address] ArrivedNOMS ENT NORWALKComment on above:ArrivedStart: 09-27-2024 End: 93-48-9949Xwicfkedayeb / ancillary services immsaiymml71/04/2024 3:15 PM EST Ancillary Procedure [facility] MR [address] [place] [id number] [facility] FNR MRStart: 09-17-2024 End: 26-27-8270Nxxoyts encounter procedureNOMS ENT NORWALKComment on above: ArrivedStart: 09-13-2024 End: 11-74-4635Bcuikfk encounter nvftifnfn98/21/2024 1:40 PM EDT Office Visit [facility] [address] [place] [address] Ro Forte, EXECUTIVE ADMINISTRATIVE ASSISTANT [address] [place] [address] ArrivedNOMS PCF NEUROLOGYComment on above:ArrivedStart: 09-08-2024 End: 25-54-3384Lnxkgvo encounter dlvphjvty31/16/2024 11:10 AM EDT Office Visit [facility] OB [address] [place] [phone] Jeremy Real, DO [address] [place] [address] NOMS BCP OBStart: 08-19-2024 End: 09-95-9229Xkjjy 1996 panel - Serum or PlasmaLipid panel Lab Routine Well woman exam with routine gynecological exam Expected: 08/19/2024 (Approximate), Expires: 08/19/2025NOMN HealthcareComment on above:Expected: 08/19/2024 (Approximate), Expires: 08/19/2025Start: 08-19-2024 End: 28-86-7449VE for pregnancyUS PELVIS-TRANSVAG IF INDICATED Imaging Routine Irregular periods Expected: 08/19/2024 (Approximate), Expires: 08/19/2025NOMN HealthcareComment on above:Expected: 08/19/2024 (Approximate), Expires: 08/19/2025Start: 08-19-2024 End: 54-33-1918Fuffeoe encounter procedureNOMS BCP OBComment on above:Arrived Start: 76-86-2963Doycf-19 Vaccine ( season)Covid-19 Vaccine ( season)[facility]: 65-33-8927YGEIC-19 Vaccine ( season)COVID-19 Vaccine ( season)[facility]Start: 19-26-4738WDMLV-19 Vaccine ( season)COVID-19 Vaccine ( season)[facility] SystemStart: 43-57-3068Gvxkjxzuw vaccinationNOMN HealthcareStart: 93-33-9431Ijqobie ScreeningTobacco ScreeningAdena Pike Medical Center SystemStart: 13-40-4424ISLEP-19 Vaccine ( season)COVID-19 Vaccine ( season)[facility] SystemStart: 95-46-7882Ixmii BMI Screening Adult BMI ScreeningAdena Pike Medical Center SystemStart: 20-60-6492PFX Vaccine (1 - 3- dose SCDM series)HPV Vaccine (1 - 3-dose SCDM series)[facility]: 33-36-3043HXW Vaccines (1 - 3-dose SCDM series)HPV Vaccines (1 - 3-dose SCDM series)[facility]: 44-55-0300Uwvuhygpw for malignant neoplasm of cervixCervical Cancer ScreeningCleveland Clinic Mentor Hospitaltart: 60-27-1335Cltlytmbr B Vaccine (1 of 3 - 19+ 3-dose series)Hepatitis B Vaccine (1 of 3 - 19+ 3-dose series)[facility]: 14-37-7834Jiycshmup B Vaccines (1 of 3 - 19+ 3- dose series)Hepatitis B Vaccines (1 of 3 - 19+ 3-dose series)[facility] Start: 34-35-6893Pvblg microalbumin profileDTaP,Tdap,Td Vaccine (1 - Tdap) [facility]: 26-64-4593Flnkrcz ScreeningAnxiety ScreeningCleveland Clinic Mentor Hospitaltart: 90-59-8830Mdueirqggr ScreeningDepression ScreeningCore[facility] Start: 27-39-8083Cjojodrpn C screeningHepatitis C ScreeningCorey Hospital Start: 59-56-5545HHT screeningHIV ScreeningCleveland Clinic Mentor Hospitaltart: 2002 History of varicella vaccinationVaricella Vaccines (1 of 2 - 13+ 2-dose series) [facility]: 98-55-3734Ewylencpcd ScreeningDepression Screening [facility]: 21-12-4170Ronhiyc ScreeningTobacco Screening [facility]: 57-22-0095MFoD,Tdap and Td Vaccines (6 - Tdap) DTaP,Tdap and Td Vaccines (6 - Tdap)[facility]: 1996 DTaP/Tdap/Td Vaccines (1 - Tdap)DTaP/Tdap/Td Vaccines (1 - Tdap)[facility] Start: 03-67-9679YXG Vaccines (1 of 1 - Standard series)MMR Vaccines (1 of 1 - Standard series)[facility] HospitalCBC W Auto Differential panel - BloodCBC and differential Lab Routine Well woman exam with routine gynecological exam Ordered: 08/19/2024[facility] HealthcareComment on above:Ordered: 08/19/2024 Comprehensive metabolic 2000 panel - Serum or PlasmaComprehensive metabolic panel Lab Routine Well woman exam with routine gynecological exam Ordered: 0 08/19/2024[facility] HealthcareComment on above:Ordered: 08/19/2024ytology Cervical or vaginal smear or scraping studyPap Smear Pathology and Cytology Routine Well woman exam with routine gynecological exam Ordered: 08/19/2024[facility] Work Phone: comment on above:Ordered: 08/19/2024ytology Cervical or vaginal smear or scraping studyPap Smear Pathology and Cytology Routine Well woman exam with routine gynecological exam Ordered: 09/29/2025[facility] Work Phone: comment on above:Ordered: 09/29/2025Hemoglobin A1c/Hemoglobin.total in BloodHemoglobin A1c Lab Routine Well woman exam with routine gynecological exam Ordered: 08/19/2024[facility] HospitalComment on above: Ordered: 08/19/2024Human papilloma virus DNA [Presence] in Unspecified specimen by Probe with amplificationHPV DNA probe, amplified Microbiology Routine Well woman exam with routine gynecological exam Ordered: 08/19/2024[facility] Comment on above:Ordered: 08/19/2024Human papilloma virus DNA [Presence] in Unspecified specimen by Probe with amplificationHPV DNA probe, amplified Microbiology Routine Well woman exam with routine gynecological exam Ordered: 09/29/2025[facility] HospitalComment on above:Ordered: 09/29/2025MR Brain WO and W contrast IVMR brain w and wo contrast routine Imaging High Priority Trigeminal neuralgia of right side of face(CMS/HCC) Ordered: 09/13/2024[facility] Work Phone: comment on above:Ordered: 09/13/2024 End: 84-73-0732YW Brain WO and W contrast IVMRI BRAIN WO/W IVCON Radiology Routine Right trigeminal neuralgia 1 Occurrences starting 11/23/2024until 12/23/2025[facility] Work Phone: comment on above:1 Occurrences starting 11/23/2024 until 12/23/2025 End: 21-83-3665XWY Head vessels WO contrastMRA BRAIN WO IVCON Radiology Routine Right trigeminal neuralgia 1 Occurrences starting 11/23/2024 until 12/23/2025 [facility] HospitalComment on above:1 Occurrences starting 11/23/2024 until 12/23/2025Thyrotropin [Units/volume] in Serum or PlasmaTSH Lab Routine Well woman exam with routine gynecological exam Ordered: 08/19/2024[facility] Comment on above:Ordered: 08/19/2024 Immunizations Immunization DateImmunizationNotesCare JptugaedVkixqguf92-04-9946vlpssipwl virus vaccine, unspecified formulationSdustyrobbie Sagastume [facility] Payers DatePayer CategoryPayerPolicy [id number] Cross Blue [id number][facility] Managed Care - PPOANTHEM [id number].505.81758-05-6763Idsezej 1.2840.665297.1.13.693.2.7.3.696[id number] 2.0.1.502946.3.57[id number] 2..1.872358.3.57[id number] 2..1.257419.3.57[id number] 2.16.840.1.552342.3.579.[id number] 2.16.840.1.303310.3.57[id number] 2.16.840.1.774244.3.579.2.041279-19-1666Fpnkylq56071104 2.16840.1.724939.3.579.2.926130-92-6088Sqakyuk33126956 2.16.840.1.292151.3.579.2.993426-24-0145Keqgcyr6823774 2.16.840.1.927993.3.579.2.051394-26-1510Zzcfbev5024828 2.0.1.562692.3.579.2.081425-70-8912Lnveahu7925420 2.840.1.994664.3.579.2.855933-33-6594Btvlukx5866448 2.840.1.911013.3.579.2.729836-65-4867Ktbvwrm7827906 2.840.1.214831.3.579.2.410465-68-8357IarisjbKOX7825872CV32-24-8534Tjrdvwj [id number] 2.840.1.430576.3.579.2.258Rbumxcp34322020 2.840.1.683591.3.579.2.531 Social History DateTypeDetailFacilityTobacco smoking statusExecutive [facility]rology of [facility] start: 04-28-2024 End: 38-80-2385Wsg Assigned At BirthFeOur Lady of [facility] - Andersontart: 85-31-1429Yme Assigned At BirthFeAshtabula General Hospitaltart: 07-01-2024 End: 25-84-6196Hglgbhu smoking status NHISEx-smokerNOMS HealthcareStart: 07-25-2007 End: 82-70-8736Xzlwvmb of tobacco useCurrent smokerNOMS HealthcareStart: 07-25-2007 End: 12-88-8173Wdjzufw of tobacco useCigarette SmokerNOMS HealthcareStart: 07-01-2024 End: 40-78-5562Uahlxevngs smoked current (pack per day) - Reported1.5NOMS HealthcareStart: 07-01-2024 End: 90-19-6318Qkwxvhw use and exposureSmokeless tobacco non-userNOMS Healthcare Start: 08-19-2024 End: 96-98-5255Jildviilo beverage intakeCurrent drinker of alcohol (finding)N[facility] HealthcareHow often to you have a drink containing alcohol?Monthly or lessNOMS HealthcareHow many standard drinks containing alcohol do you have on a typical day?1 or 2NOMS HealthcareHow often do you have 6 or more drinks on 1 occasion? NeverNOMS HealthcareStart: 94-58-4119Gnmzdj identityIdentifies as female gender (finding)[facility] HealthcareStart: 50-30-9191Eaboku orientationHeterosexual (finding)[facility] HealthcareStart: 12-21-5467Psszlph smoking status NHISTobacco smoking consumption unknownC[facility] Clinic Ment[facility] Hospitaltart: 03-27-2023 End: 42-89-0187Nechv Depression Screening Wtebqaxfia3Gwfesiidt ClinicStart: 74-76-9658Fcn assigned at birthNot on fileGladwin ClinicStart: 12-25-2016 Tobacco smoking status NHISSmokes tobacco dailyProMedica Health SystemStart: 91-38-7960Feefzxp CommentrareProMedica Health SystemStart: 95-74-9638Ukliizbys beverage intakeEx-drinker (finding)[facility] HealthcareStart: 00-42-5364Shqxmfpeb beverage intakeLifetime non-drinker (finding)[facility] ClinicStart: 06-27-2015 SexFemale (finding)[facility] Clinical Notes 06-11-2024 to 09-29-2025 Note Date & QfgwGrcsQcjdnypf44-94-4372 History of Present illness Narrative* Poonam Cowan, BROKERAGE CLERK - 09/29/2025 11:00 AM EST Reason for [...] nursing note reviewed. Exam conducted with a nurse reviewer present. Vitals: Estimated body mass index is [...] behalf of: AI Echols documented in this encounterScotland County Memorial HospitalMzpdawwwqx89-05-9816 NoteHNO ID: [id number] Author: YARON LOZA MD Service: ? Author [...] - with results to be communicated via [employer]. I advised as needed follow up with [...] the day of service that includes both bafi-td-hsld and wfo-bjbp-tr-face time. This time was separate from any [...] the patient who was amenable and voiced understanding.[facility]08-22-2025 Telephone encounter Note* Telephone Encounter - John Cali - 07/15/2025 2:47 PM EDT Patient last seen on 07/05/25 [facility]08-22-2025 Miscellaneous Notes* Telephone Encounter - John Cali - 07/15/2025 2:47 PM EDT Patient last seen on 07/05/25 documented in this encounterCorey Hospital08-21-2025 NoteFamily Medicine - Outpatient visit 07/14/2025 [...] sided facial pain. She has been seeing [facility] neurologist. She just had appointment on July [...] blood screening. She is due to see PRODUCTION TOOL ENGINEER. She does have underlying polycystic ovarian syndrome. [...] and leg swelling. Loretta (more content not included)...[facility]08-12-2025 Instructions* Patient Instructions* Avery Gaines, - 07/05/2025 [...] 5: -Please obtain generic omeprazole (20 mg) [Jalousier, Kleo, [employer], [employer], etc.] and start one daily. [...] sometimes buysupplements cheaper (especially Coenzyme Q10) at www.Qosmos or at [employer]. General Headache Instructions: 1) Maintain a headache diary; learn to identify and avoid triggers. 2) Limit use of acute treatments (clww-kbd-vmrhfbc medications, triptans, etc.) to no more than [...] Inez Kalpana, Mug/A+W Root Beer, Min[place]id [place], Slice are okay)) -Foods containing nitrates (deli meat, ham, guerrero, sausage, hot dogs) -Tyramine (aged cheese; can only have Qatari cheese, cottage cheese, Velveeta and fresh mozarella(most pizza uses aged mozarella)) -MSG (Sri Lankan/ foods, Doritos, all flavored chips and Ramen [...] Feverfew: Feverfew is a common garden herb [place] to [place] and popular in [place] [...] offering to allow you to have a fgtr-id-gwsy conversation with your doctor for 15 minutes [...] patients, providers, and family members through a SkKanboxe -like connection for live audio and video [...] WEBCAM CONNECTED: 1. Go to the URL: [email or web address] 2. Click on Sign Up and Create a patient account for yourself. 3. Please also follow the links to Test My Computer . 4. Follow the steps suggested, testing your Internet Speed, Webcam, Microphone, Speaker, and your video software. 5. Please make sure your video software is up-to-date. This is a safe, [facility] approved download, and will not harm your computer. ON AN IPHONE, IPAD, OR ANDROID DEVICE: 1. Open up the [employer] Store or [employer] and search [facility] [employer] Care Online. 2. Download and Install the Application. 3. Tap on Sign Up and create a patient account for yourself. 4. Please use an e-mail address that you frequently check, as you will receive an e-mail appointment from [facility] [employer]. Find our user guide, here: [email or web address] Important: Don t forget your password you [...] be connected to the provider. Please call [phone] prior to your visit if you have any questions regarding technology! documented in this encounterCorey Hospital08-12-2025 NoteHNO ID: [id number] Author: AVERY GAINES DO Service: ? Author [...] Follow-up: 3 months. REFERRING PHYSICIAN: Maggy Jacobo [address] [facility] [address] PCP: Rohit Leos [address] [facility] [address] [place] [address] Accompanied by: Self CC: Headache, Migraine, Facial [...] She also mentions s (more content not included)...[facility] 07-05-2025 History of Present illness Narrative* Avery [...] Follow-up: 3 months. 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 Cuff Setter Lockstitch: DIOGO Transcribe Date/Time: Dec 14 2024 11:24A [...] imaging without and with gadolinium. Intracranial 3D cgpg-ok-lgoqcb MRA with post-processing performed at the modality [...] suggest previous brain parenchymal hemorrhage within the tabeg-oc-mrjv. Mass Lesion/ Mass Effect: No evidence of an intracranial mass or extra-axial fluid collection. No significant mass effect. Chronic Change: The white matter is within normal limits of signal intensity for age. Parenchyma: No significant volume loss for age. The brain parenchyma within the dhmyv-hx-govq is otherwise within normal limits of signal [...] GAIT: Stable primary gait. Avery Gaines DO [facility] [place] [facility] [address] [place], [place] [id number] Level of service: New level 4 (45-59 min). Time spent 60 min on the day of service, which included preparing to see the patient, ydoe-xg-ovnn patient care, completing clinical documentation, obtaining and/or reviewing separately obtained history, performing a medically appropriate examination, counseling and educating the patient/family/caregiver, ordering medications, tests, or procedures, communicating with other HCPs (not separately reported), and independently interpreting results (not separately reported). Medical Decision Making: Medical Decision Making Level: 1 - N/A cc: Maggy Jacobo [address] [facility] [address] Rohit Leos [address] [facility] [address] [place] [address] [1] Social History Tobacco Use Smoking status: Former Current packs/day: 0.00 Types: Cigarettes Quit date: 06/2022 Years since quittin.0 Smokeless tobacco: Never Substance Use Topics Alcohol use: Never Drug use: Yes Types: Marijuana documented in this encounterCorey Hospital07-10-2025 NoteHNO ID: [id number] Author: JENNIFER LOPEZ, PT Service: ? Author [...] Patient to be seen for Therapeutic exercise (14737), Neuromuscular re-education (95480), Manual therapy (71658), Therapeutic activities (12887), Self-penitentiary management (59861), Patient/Family/Caregiver Education, Body Mechanics Training, Functional training [...] and assessment of patient's response to intervention. Self-Halfway Management: 1: Pain neuroscience education Sensitive Nerves: [...] of the brain, in (more content not included)...[facility]07-10-2025 History of Present illness Narrative* Jennifer Lopez, [...] Patient to be seen for Therapeutic exercise (07974), Neuromuscular re-education (94080), Manual therapy (02990), Therapeutic activities (42967), Self-penitentiary management (37858), Patient/Family/Caregiver Education, Body Mechanics Training, Functional training [...] and assessment of patient's response to intervention. Self-Halfway Management: 1: Pain neuroscience education Sensitive Nerves: [...] 1500 Jennifer Lopez PT documented in this encounterCorey Hospital07-10-2025 NoteFamily Medicine - Outpatient visit 06/02/2025 ELEAZAR Kierra NATARAJAN is a 34 y.o. female who [...] cervical MRI back in October ordered by [facility] but did not see the results. She [...] mood and sleep disturba (more content not included)...[facility]06-21-2025 Miscellaneous Notes* Psychiatric Progress Note - Kemi [...] injury in 2022. She is going to [facility] for treatment. Is seeing a therapy [...] with . 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 Has hx of [...] in 2019 and went to ER in [facility] Dx: depression Outpatient treatment: yes Dx: [...] Other Scales used: HAM-A Adult ADD Checklist: [place] Suicide Severity Rating Scale (C-SSRS): low risk [...] cancer Maternal great-grandmother Psychosocial History: (developmental, educational, advent, legal, marriage, parenting of children, living arrangements, important relationships, stressors) Developmental: difficult Educational: high school diploma Marital & Parenting of Children: . Has no children Living arrangements: Important relationships: sister and Stressors: yes Legal issues: denied Financial concerns: denied Jewish affiliations: unknown Occupational History: Job title: yes [...] Anxiety disorder, unspecified type - [facility] [place] [place] Any labs required: none Starts Buspirone/Buspar [...] Patient was given the phone numbers of [facility] (Rescue crisis) [phone] and National Suicide Hotline: 988. Medication side [...] . KEMI LEMUS MD documented in this encounterSumma [facility]06-21-2025 Progress note* Psychiatric Progress Note - Kemi [...] injury in 2022. She is going to [facility] for treatment. Is seeing a therapy [...] with . 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 Has hx of [...] in 2019 and went to ER in [facility] Dx: depression Outpatient treatment: yes Dx: [...] Other Scales used: HAM-A Adult ADD Checklist: [place] Suicide Severity Rating Scale (C-SSRS): low risk [...] cancer Maternal great-grandmother Psychosocial History: (developmental, educational, advent, legal, marriage, parenting of children, living arrangements, important relationships, stressors) Developmental: difficult Educational: high school diploma Marital & Parenting of Children: . Has no children Living arrangements: Important relationships: sister and Stressors: yes Legal issues: denied Financial concerns: denied Jewish affiliations: unknown Occupational History: Job title: yes [...] Anxiety disorder, unspecified type - [facility] [place] [place] Any labs required: none Starts Buspirone/Buspar [...] Patient was given the phone numbers of [facility] (Rescue crisis) [phone] and National Suicide Hotline: 988. Medication side [...] planning to become . KEMI LEMUS MD [facility]06-12-2025 NoteHNO ID: [id number] Author: JENNIFER LOPEZ PT Service: ? Author [...] Session Stop Time : 1503 Jennifer Lopez [facility]06-12-2025 History of Present illness Narrative* Ricardayuni [...] 1503 Jennifer Lopez PT documented in this encounterCorey Hospital05-21-2025 NoteHNO ID: [id number] Author: JENNIFER LPOEZ PT Service: ? 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 Author Type: Nurse Practitioner Type: [...] visit. Either the patient or their legal signs sales representative has been informed of the risks [...] hour before typical onset of pain (around 0782-5289). Patient states she is no longer trying to conceive. - Continue baclofen 1/2 tablet PO daily in the morning or as needed for breakthrough pain. 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 - Referral to neuro-radiologic technology instructor Dr. Leon Loza at [facility] for evaluation of intermittent diplopia and [...] facial pain episodes. - Interested in exploring pwl-fuoit-rqqrxgx medications for anxiety management. Headache 1 Number [...] pressure). Can radiate down (more content not included)...[facility] 03-15-2025 Instructions* Patient Instructions* Maggy Jacobo APRN.SENIOR FUNCTIONAL ANALYST - 03/15/2025 11:53 AM EDT Start gabapentin [...] neuro-ophthalmology evaluation with Dr. Leon Loza at [facility]. Please call their office to schedule your [...] which require alertness. Contact our office at [phone] if you experience a rapid, pounding, or [...] or other problems, call our office at [phone]. Due to side effects, we start the medication at a low dose. The range of dosage for Neurontin (Gabapentin) is 100mg to 4800mg / day. Since Neurontin (Gabapentin) can make you tired, I recommend taking it at bedtime. Please advise, it may take 3 to 6 weeks to show benefit for your pain. documented in this encounterCorey Hospital04-22-2025 NoteHNO ID: [id number] Author: MAGGY JACOBO APRN.LUTHER Service: ? Author Type: Nurse Practitioner Type: Progress Notes Filed: 03/15/2025 13:43 Note Text: Outpatient Headache Clinic - Follow Up Visit Accompanied by: Self Primary Problem List: There is no problem list on file for this patient. Chief Complaint: facial pain LV: 03/03/25 Beth hPillips CNP Impression and Plan from last visit: [...] for , so would like to limit jail medications ideally at this time. She will [...] cause of pain. - Currently using a lifeguard for suspected TMJ-related issues. - Denies current [...] (possibly contributing to l (more content not included)...[facility]04-22-2025 History of Present illness Narrative* Maggy Jacobo APRN.SENIOR FUNCTIONAL ANALYST - 03/15/2025 11:15 AM EDT Images from [...] for , so would like to limit jail medications ideally at this time. She will [...] the causeof pain. - Currently using a lifeguard for suspected TMJ-related issues. 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 Cuff Setter Lockstitch: [facility] Transcribe Date/Time: Dec 14 2024 11:24A Dictated [...] articulation, and clear,coherent, and relevant. Short and technician terminal and repeater memory, cognition and general fund of knowledge [...] 1 hour before typical onset ofpain (around 8273-6619). Patient states she is no longer trying to conceive. - Continue baclofen 1/2 tablet PO daily in the morning or as needed for breakthrough pain. 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 - Referral to neuro-radiologic technology instructor Dr. Leon Loza at [facility] for evaluation of intermittent diplopia and potential [...] time Follow-up: 3 months Level of service: [facility] level 4 (30-39 min). Time spent 30 min on the day of service, which included preparing to see the patient, ysga-om-pyaz patient care, completing clinical documentation, obtaining and/or reviewing separately obtained history, performing a medically appropriate examination, and counseling and educating the patient/family/caregiver. Maggy Jacobo APRN.SENIOR FUNCTIONAL ANALYST Headache Section [facility] March 15, 2025 documented in this encounterCorey Hospital04-15-2025 Miscellaneous Notes* Telephone Encounter - Luanne Magaña - 03/08/2025 4:28 PM EDT Patient last seen on 03/03/25 documented in this encounterCore[facility]04-15-2025 Telephone encounter Note * Telephone Encounter - Luanne Magaña - 03/08/2025 4:28 PM EDT Patient last seen on 03/03/25 [facility]04-10-2025 Instructions* Patient Instructions* Marii Phillips APRN.CNP - 03/03/2025 8:31 AM EDT Referral to our Neuro Obstetrics team has been placed. This team is Dr. Mary Ellen Bean or Dr. Sherin Butt. Please call [phone] to schedule. documented in this encounterCorey Hospital04-10-2025 History of Present illness Narrative* Marii [...] visit. 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 Cuff Setter Lockstitch: DIOGO Transcribe Date/Time: Dec 14 2024 11:24A [...] articulation, and clear,coherent, and relevant. Short and technician terminal and repeater memory, cognition and general fund of knowledge [...] for , so would like to limit technician terminal and repeater medications ideally at this time. She will [...] which included preparing to see the patient, xams-xs-hsma patient care, completing clinical documentation, obtaining and/or reviewing separately obtained history, performing a medically appropriate examination, and counseling and educating the patient/family/caregiver. Marii Phillips APRN.LUTHER documented in this encounterCorey Hospital04-10-2025 NoteHNO ID: [id number] Author: MARII PHILLIPS APRN.LUTHER Service: ? Author [...] visit. Either the patient or their legal signs sales representative has been informed of the risks [...] these with the patient: Yes, Marii Phillips APRN.SENIOR FUNCTIONAL ANALYST HEADACHE SCORES: 11/22/2024 01/04/2025 03/03/2025 Headache Questions [...] month free from face (more content not included)...[facility]03-31-2025 History of Present illness Narrative* Thien Silva [...] Review Audit Reviewed by Aleksandra Black MA (Manager Strategic Marketing) on 02/21/25 at 1326 Medication Order Taking? Sig Documenting Provider Last Dose Status baclofen (Lioresal) 10 MG tablet [id number] TAKE 1/2 TO 1 (ONE-HALF TO ONE) TABLET BY MOUTH TWICE DAILY NEEDED FOR FACIAL PAIN MAY CAUSE DROWSINESS Bruno Frost MD Active carBAMazepine ER (Carbatrol) 300 MG 12 hr capsule [id number] Take 1 capsule (300 mg) by mouth in the morning and 1 capsule (300 mg) before bedtime. Do not crush or chew.. AI Pantoja 10/23/24 3566 hydrOXYzine HCl (Atarax) 10 MG tablet [id number] Take 50 mg by mouth 3 (three) times a day as needed Historical Provider, Active ibuprofen 800 MG tablet [id number] Take 600 mg by mouth every 6 (six) hours if needed for moderate pain Jeremy Real DO Active metFORMIN XR (Glucophage-XR) 500 MG 24 hr tablet [id number] TAKE 1 TABLET BY MOUTH IN THE EVENING WITH A MEAL DO NOT CRUSH CHEW OR SPLIT Bruno Frost MD Active rizatriptan (Maxalt) 10 MG tablet [id number] TAKE 1 TABLET BY MOUTH ONCE DAILY A 1 TIME DOSE, IF NEEDED FOR MIGRAINE. MAY REPEAT IN 2 HOURS IF UNRESOLVED. DO NOT EXCEED 30MG IN 24 HOURS. Bruno Frost MD Active Allergies Allergen Reactions Dextromethorphan-Guaifenesin Past Medical History: Diagnosis Date ADHD (attention deficit hyperactivity disorder) ([facility]) Anxiety Depression ([facility]) Ear problems Head injury October 16 Infertility, female Migraine 05/2024 PTSD (post-traumatic stress disorder) ([facility]) Past Surgical History: Procedure Laterality Date [...] of the right nipple documented in this encounterScotland County Memorial HospitalDcypenavoq51-05-2818 History of Present illness Narrative* Maggy Jacobo APRN.[facility] - 01/06/2025 8:00 AM EST Images from [...] visit. 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 Cuff Setter Lockstitch: DIOGO Transcribe Date/Time: Dec 14 2024 11:24A [...] articulation, and clear,coherent, and relevant. Short and technician terminal and repeater memory, cognition and general fund of knowledge [...] Service: Virtual Visit 30 minutes Maggy Jacobo APRN.[facility] Headache Section [facility] January 06, 2025 documented in this encounterCorey Hospital02-13-2025 NoteHNO ID: [id number] Author: MAGGY JACOBO APRN.LUTHER Service: ? Author [...] visit. Either the patient or their legal signs sales representative has been informed of the risks [...] these with the patient: yes Maggy Jacobo APRN.SENIOR FUNCTIONAL ANALYST HEADACHE SCORES: 11/22/2024 01/04/2025 Headache Questions ID [...] Index PDI Score 35 (more content not included)...[facility]02-03-2025 NoteDate of Telehealth Visit: 12/27/2024 Chief Complaint Patient presents with Flu Symptoms Patient presents to be seen due to body aches, migraine, congestion. She states symptoms started last Friday. 34-year-old female presented today for flulike symptoms. Sick with stomach flu 1 week ago. [place] back to normal last couple days now [...] that using 3rd republican telecommunication application (e.g., BPT) is not HIPPA compliant and may carry some privacy risks. Yes The visit was conducted veio-ks-egef with the use of audio and video technology tracx between patient and provider for a virtual [...] office visit. Please call our office at [phone] for any questions or concerns regarding your health. In case of emergency please report to the nearest ER for instant management.[facility]01-21-2025 History of Present illness Narrative* Aleksandra Cruz [...] PATIENT PRESENTS WITH AN IMPLANTABLE OR ATTACHED CARGO INSPECTOR: No ALLERGIES: Reviewed and unchanged CONTRAST ALLERGY: NO. EXAM: MRI - CONTRAST TYPE: GROUP II PERIPHERAL IV DATA: Ambulatory: A peripheral IV was started in the Right antecubital site with a Angio cath: 24 gauge. RADIOLOGY DEPARTMENT: MR; Exam(s) Completed: Head: Cranial Nerve, [place] of [place] MRA SIGNATURE: MAXX Naranjo) PATIENT NAME: Kierra Natarajan DATE: December 14, 2024 TIME: 11:12 AM documented in this encounterCorey Hospital01-21-2025 NoteHNO ID: [id number] Author: ALEKSANDRA CRUZ RT(R) Service: ? Author [...] PATIENT PRESENTS WITH AN IMPLANTABLE OR ATTACHED CARGO INSPECTOR: No ALLERGIES: Reviewed and unchanged CONTRAST ALLERGY: NO. EXAM: MRI - CONTRAST TYPE: GROUP II PERIPHERAL IV DATA: Ambulatory: A peripheral IV was started in the Right antecubital site with a Angio cath: 24 gauge. RADIOLOGY DEPARTMENT: MR; Exam(s) Completed: Head: Cranial Nerve, [place] MRA SIGNATURE: Aleksandra Cruz, RT(R) PATIENT NAME: Kierra Natarajan DATE: December 14, 2024 TIME: 11:12 [facility]12-31-2024 NoteHNO ID: [id number] Author: VINCENZO MUKHERJEE MD Service: ? Author [...] Vincenzo Mukherjee MD November 23, 2024 1:44 [facility]12-31-2024 History of Present illness Narrative* Vincenzo Mukherjee [...] 23, 2024 1:44 PM documented in this encounterCorey Hospital11-21-2024 NoteFamily Medicine - Outpatient visit 10/14/2024 [...] at. She is thinking about going somewhere [facility] as she lives in [place]. She also experiences migraines and they tend [...] Creatinine 09/26/2024 0.72 BUN/Cre (more content not included)...[facility] 10-13-2024 History of Present illness Narrative* AI [...] Diagnosis Date ADHD (attention deficit hyperactivity disorder) ([facility]) Depression ([facility]) Ear problems Head injury October 16 Infertility, female Migraine ([facility]) 05/2024 PTSD (post-traumatic stress disorder) ([facility]) HISTORY PAST MEDICAL HISTORY SOCIAL HISTORY Past Medical History: Diagnosis Date ADHD (attention deficit hyperactivity disorder) ([facility]) Anxiety Depression ([facility]) Ear problems Head injury October 16 Infertility, female Migraine ([facility]) 05/2024 PTSD (post-traumatic stress disorder) ([facility]) Social History Tobacco Use Smoking status: [...] report that was done on 09/27/2024 at [facility]. Pt would like to see if [...] behalf of: AI Echols documented in this encounterScotland County Memorial HospitalJytiwhnzkr05-02-3497 NoteFamily Medicine - Outpatient visit 10/06/2024 HPI: [...] Arthritis Mother's Sister Leann Arthritis Mother's Brother [place] Arthritis Mother's Sister [place] Social History: Social History Tobacco Use Smoking [...] 09/26/2024 8.3 (L) AST (more content not included)...[facility]11-08-2024 History of Present illness Narrative* Sudheer Chacon [...] Diagnosis Date ADHD (attention deficit hyperactivity disorder) ([facility]) Depression ([facility]) Ear problems Head injury October 16 Infertility, female Migraine ([facility]) 05/2024 PTSD (post-traumatic stress disorder) ([facility]) Past Surgical History: Procedure Laterality Date [...] appt with Dr Juan documented in this encounterScotland County Memorial HospitalRwxjfuvstq09-66-5760 NoteED follow up call Discharged From: [facility] [...] she is requesting a referral to Hemo-oncology [facility] Shimon See for follow up/evaluation. PCP will be notified of request for referral. Stat labs were also completed at [facility] on 10/01/2024. PCP Appointment: 09/23/2024 - last in office appointment with PCP 09/28/2024 - follow up with neurology 10/01/2024 - follow up with ENT (Quin Chacon) New Medications: No new medications Call Us First: Discussed with patient the opportunity to contact this office for all after-hours care questions, 16/06. Discussed with patient this office often has availability for same-day sick appointments.[facility]11-05-2024 NoteReviewing ER visit: ENT should look at the MRI for the parotid gland and lymph node findings. Calcium little low on labs. Make sure she is takign D3 2000 U. Blood work recently showed low vit [facility]11-04-2024 Telephone encounter Note* Telephone Encounter - Ro Forte NP - 09/27/2024 10:49 AM EST I have never seen this with tegretol. If she wants to try a different medication we can do that. I would try cymbalta or gabapentin if she wants to try something different.Let me know and Ill send something in if she wants something different [facility] Memorial HospitalQrsslrdqcm34-15-5913 Miscellaneous Notes* Telephone Encounter - Ro Forte [...] carbamazepine. Pt reports that she spoke with reservation clerk neurologist and they told her to also f/u with our office. Patient went to ER in [place] on Friday and notes that they did [...] until f/u with us. documented in this encounterScotland County Memorial HospitalQengypisow06-08-6970 Telephone encounter Note* Telephone Encounter - Toñito Alvarez MA - 09/27/2024 10:18 AM EST On of last pt was seen by PCP for lumps behind ears, on jaw line, sore throat and swollen glands. PCP said to f/u with our office as this could be a reaction to her med, carbamazepine. Pt reports that she spoke with reservation clerk neurologist and they told her to also f/u with our office. Patient went to ER in [place] on Friday and notes that they did [...] not increase dosage until f/u with us. [facility] HospitalZtznnwjuhy40-82-4080 NoteFamily Medicine - Outpatient visit 09/23/2024 HPI: [...] Arthritis Mother's Brother [place] Arthritis Mother's Sister [place] Social History: Social History Tobacco Use Smoking [...] every 12 (twelve) hours if needed. [DISCONTINUED] lodpzfjd-bgxvohava-dyzAQDFClqlme (Maxitrol) 3.5mg/mL-10,000 unit/mL-0.1 % ophthalmic suspension INSTILL [...] SS-A (RO) Ab 04/10/2023 (more content not included)...[facility]10-23-2024 Telephone encounter Note* Telephone Encounter - Ro Forte NP - 09/15/2024 10:10 AM EDT This has been taken care of. I do not think these are seizure as she has not altered awareness. We will see what the brain MRI shows. She was started on tegretol. If brain MRI normal and symptoms arepersistent we can consider referral to [facility] and/or [facility]. [facility] HospitalVezrmgqjre59-10-7537 Miscellaneous Notes* Telephone Encounter - Ro Forte [...] would like the MRI order faxed to [facility] documented in this encounterScotland County Memorial HospitalBweqmyazlp82-24-2190 Telephone encounter Note* Telephone Encounter - Emanuel [...] would like the MRI order faxed to [facility] HospitalUpjlnugqtp17-78-6585 Telephone encounter Note* Telephone Encounter - Ro Forte NP - 09/14/2024 5:44 PM EDT Done [facility] HospitalOnhcqomfnr44-42-7383 Miscellaneous Notes* Telephone Encounter - Ro Forte NP - 09/14/2024 5:44 PM EDT Done * Telephone Encounter - Toñito Alvarez MA - 09/14/2024 2:08 PM EDT Pharmacy calls stating that the pt is not wanting to cut the baclofen in half and is asking us to send an rx for 5mg tabs to the pharmacy. documented in this encounterScotland County Memorial HospitalDhbjkcxddg17-52-4611 Telephone encounter Note* Telephone Encounter - Toñito Alvarez MA - 09/14/2024 2:08 PM EDT Pharmacy calls stating that the pt is not wanting to cut the baclofen in half and is asking us to send an rx for 5mg tabs to the pharmacy. [facility] HospitalOdqivccsdx02-80-1093 History of Present illness Narrative* Ro Forte NP - 09/13/2024 1:40 PM EDT Images from the original note were not included. Subjective Kierra Natarajan is a 33 y.o. year old female No chief complaint on file. Past Medical History: Diagnosis Date ADHD (attention deficit hyperactivity disorder) ([facility]) Anxiety Depression ([facility]) Head injury October 16 Infertility, female PTSD (post-traumatic stress disorder) ([facility]) Past Surgical History: Procedure Laterality Date [...] 1053 hydrOXYzine HCl (Atarax) 10 MG tablet [id number] Yes Take 10 mg by mouth 3 (three) times a day as needed. Historical Provider, Active ibuprofen 800 MG tablet [id number] Yes Take 800 mg by mouth every 6 (six) hours if needed for moderate pain Jeremy Real, DO Active levoFLOXacin (Levaquin) 250 MG tablet [id number] Yes Take 2 tablets by mouth Daily Jeremy Real, DO Active metFORMIN XR (Glucophage-XR) 500 MG 24 hr tablet [id number] Yes Take 1 tablet (500 mg) by [...] in upper and lower extremities. Coordination Right: Kzmwbc-xv-ilzp normal. Rapid alternating movement normal.Left: Mzdtsl-vf-ocld normal. Rapid alternating movement normal. Gait Casual gait is normal including stance, stride, and arm swing. Motor Examination RUE Strength deltoid, biceps, triceps, wrist extensors, wrist extensors, wrist flexor, auto appraiser strength 5/5. LUE Strength deltoid, biceps, triceps, wrist extensors, wrist extensors, wrist flexor, auto appraiser strength 5/5. RLE Strength illopsoas, quadriceps, tibialis [...] well. In September she was helping her cqnltc-xb-aoa into a chair and his head hit [...] to make further recommendations documented in this encounterScotland County Memorial HospitalOyvgehogsa21-67-1268 History of Present illness Narrative* Myra Mckenna, [...] Diagnosis Date ADHD (attention deficit hyperactivity disorder) ([facility]) Depression ([facility]) Head injury October 16 Infertility, female PTSD (post-traumatic stress disorder) ([facility]) HISTORY PAST MEDICAL HISTORY SOCIAL HISTORY Past Medical History: Diagnosis Date ADHD (attention deficit hyperactivity disorder) ([facility]) Anxiety Depression ([facility]) Head injury October 16 Infertility, female PTSD (post-traumatic stress disorder) ([facility]) Social History Tobacco Use Smoking status: [...] nursing note reviewed. Exam conducted with a nurse reviewer present. Vitals: Estimated body mass index is [...] of: Jeremy Real DO documented in this encounterScotland County Memorial HospitalMqchqeeelf02-20-7542 Miscellaneous Notes* Telephone Encounter - Shanasurinder Cain [...] be okay to accept? documented in this encounterSum[facility]10-03-2024 Telephone encounter Note* Telephone Encounter - Shanasurinder [...] furlong he's booking out till about October [employer]10-03-2024 Telephone encounter Note* Telephone Encounter - NORMAN Temple - 08/26/2024 2:47 PM EDT I would feel she is more appropriate for a physician at this time. [employer] Work Phone: [phone] Telephone encounter Note* Telephone Encounter - Shana Cain - 08/26/2024 2:47 PM EDT Would you be okay to accept? [employer]09-26-2024 History of Present illness Narrative* AI Echols [...] Diagnosis Date ADHD (attention deficit hyperactivity disorder) ([facility]) Depression ([facility]) Head injury October 16 Infertility, female PTSD (post-traumatic stress disorder) ([facility]) HISTORY PAST MEDICAL HISTORY SOCIAL HISTORY Past Medical History: Diagnosis Date ADHD (attention deficit hyperactivity disorder) ([facility]) Anxiety Depression ([facility]) Head injury October 16 Infertility, female PTSD (post-traumatic stress disorder) ([facility]) Social History Tobacco Use Smoking status: [...] nursing note reviewed. Exam conducted with a nurse reviewer present. Vitals: Estimated body mass index is [...] behalf of: AI Echols documented in this encounterScotland County Memorial HospitalVurclsrhwp08-10-5637 Miscellaneous Notes* Psychiatric Progress Note - CHRISTOPHER Chiu - 06/11/2024 11:52 AM EDT Received referral from external office in [place] to be seen for Anxiety. Called and left message for patient to call office back to schedule new patient appointment. Once patient returns call will also give information to [facility] as it appears patient lives in [place]. Patient can decide if she would like to come to [place] office for [place]. documented in this encounterSumma Health [facility]07-19-2024 Progress note* Psychiatric Progress Note - CHRISTOPHER Chiu - 06/11/2024 11:52 AM EDT Received referral from external office in [place] to be seen for Anxiety. Called and left message for patient to call office back to schedule new patient appointment. Once patient returns call will also give information to [facility] as it appears patient lives in [place]. Patient can decide if she would like to come to [place] office for [place]. [facility]Evaluation + Plan note No data available for this section [facility] evaluation noteNo assessment information available [facility] Work Phone: Evaluation note* Diagnosis Irregular periods [...] trigeminal neuralgia- Primary documented in this encounter [facility]* Diagnosis Right trigeminal neuralgia documented in this encounter [facility]* Diagnosis Right trigeminal neuralgia documented in this encounter [facility]* Diagnosis Right trigeminal neuralgia documented in this encounter [facility]* Diagnosis Anxiety disorder, unspecified type- Primary documented in this encounter [facility]* Diagnosis Mass of right breast, unspecified quadrant- Primary documented in this encounter [facility] HealthcareEvaluation note* Diagnosis Right trigeminal neuralgia- Primary Trigeminal nerve disorder Trigeminal nerve disorder, unspecified Occipital neuralgia of right side documented in this encounter [facility]* Diagnosis Chronic migraine without aura, intractable, without status migrainosus- Primary Trigeminal nerve disorder Trigeminal nerve disorder, unspecified Occipital neuralgia of right side Chronic sinusitis, unspecified location documented in this encounter [facility]* Diagnosis Trigeminal nerve disorder- Primary Trigeminal nerve disorder, unspecified Chronic migraine without aura, intractable, without status migrainosus documented in this encounter [facility] note* Diagnosis Generalized anxiety disorder- Primary Anxiety disorder, unspecified type [facility]* Diagnosis Trigeminal nerve disorder- Primary Trigeminal nerve disorder, unspecified Chronic migraine without aura, intractable, without status migrainosus [facility]* Diagnosis Chronic daily headache- Primary Headache [...] Right trigeminal neuralgia documented in this encounter [facility]* Diagnosis Well woman exam with routine gynecological exam Routine gynecological examination History of ovarian cyst Personal history of other genital system and obstetric disorders Pain in female genitalia on intercourse Dyspareunia Chronic right-sided low back pain, unspecified whether sciatica present documented in this encounter [facility] HealthcareHistory of Present illness Narrative* Sudheer Chacon MD - 09/17/2024 10:30 AM EDT Subjective Patient ID: Kierra Natarajan is a 33 y.o. female who presents for Sialoadenitis Pt reports one mo ago she started developing intermittent right facial numbness and tingling. Also getting intermittent double vision. Improved since starting tegratol and baclofen. Pt at [facility]. MRI ordered and awaiting scheduling. Pt [...] Diagnosis Date ADHD (attention deficit hyperactivity disorder) ([facility] [facility]) Depression ([facility]) Ear problems Head injury October 16 Infertility, female Migraine (CMS/HCC) 05/2024 PTSD (post-traumatic stress disorder) (CMS/[facility]) Past Surgical History: Procedure Laterality Date [...] suggests any ENT path documented in [facility] instructions No data available for this section [facility] InstructionsNot on filedocumented in this encounter [facility]Not on filedocumented in this encounter [facility]InstructionsNot on filedocumented in this encounter [facility] SystemInstructionsNot on filedocumented in this encounter [facility]Progress note No data available for this section [facility] reason for referral (narrative)* Consultation (Routine) - Pending ReviewSpecialtyDiagnoses / ProceduresReferred By ContactReferred To Contacthavioral Health Diagnoses Anxiety disorder, unspecified type Ro Forte, ISIDORO-SENIOR FUNCTIONAL ANALYST [address] [address] Referral IDStatusReasonStart DateExpiration DateVisits RequestedVisits [id number] Review Specialty Services Required / [facility] SystemReferny for referral (narrative)* SpecialtyDiagnoses / ProceduresReferred By ContactReferred To ContactPsychiatry [facility] [address] [address] Referral IDStatusReasonStart DateExpiration DateVisits RequestedVisits Authorized [facility] CampusReason for referral (narrative)No reason for referral information availablePromedica [facility] Work Phone: Reason for visit Narrative* Consultation (Routine) - Pending ReviewSpecialtyDiagnoses / ProceduresReferred By ContactReferred To ContactBehavioral Health Diagnoses Anxiety disorder, unspecified type Ro Forte, RAW SHELLFISH PREPARER-SENIOR FUNCTIONAL ANALYST [address] [place] [address] Phone: tel: fax: [facility] [address] [place] [address] Phone: tel: fax: Referral IDStatusReasonStlexington DateExpiration DateVisits RequestedVisits [id number] Review Specialty Services Required / [facility] Summary Purpose Family History No Family History [...] HIGH MDM 60 MINUTES Giuliana, [place] [address] [place] [address] Referral IDStatusReasonStart DateExpiration DateVisits RequestedVisits [id number] PCP Requested Referral [id number] / ProceduresReferred By ContactReferred To ContactMR IMAGING Diagnoses Right trigeminal neuralgia Procedures MRA BRAIN WO IVCON MRA, HEAD W/[place] [address] [place] [address] [facility] [place] [address] Referral IDStatusReasonStart DateExpiration DateVisits RequestedVisits [id number] Auto-Generated Referral [id number] / ProceduresReferred By ContactReferred To ContactMR IMAGING Diagnoses Right trigeminal neuralgia Procedures MRI BRAIN WO/W IVCON MRI BRAIN BRAIN STEM W/O W/[place] [address] [place] [address] [facility] [place] [address] Referral IDStatusReasonStart DateExpiration DateVisits RequestedVisits [id number] Auto-Generated Referral Additional Source Comments INFORMATION SOURCE (unrecogn ized section and content) DATE CREATED AUTHOR 03/09/2021 [facility] DATE CREATED AUTHOR AUTHOR'S ORGANIZ ATION 03/09/[address] [facility] DATE CREATED AUTHOR AUTHOR'S ORGANIZ ATION 06/08/2024 [facility] DATE CREATED AUTHOR AUTHOR'S ORGANIZ ATION 08/16/2024 [facility] DATE CREATED AUTHOR AUTHOR'S ORGANIZ ATION 10/03/2024 [facility] DATE CREATED AUTHOR AUTHOR'S ORGANIZ ATION 10/10/2024 [facility] DATE CREATED AUTHOR AUTHOR'S ORGANIZ ATION 05/16/2025 [facility] DATE CREATED AUTHOR AUTHOR'S ORGANIZ ATION 09/18/2025 [facility] DATE CREATED AUTHOR AUTHOR'S ORGANIZ ATION 09/27/2025 [facility] DATE CREATED AUTHOR AUTHOR'S ORGANIZ ATION 10/05/2025 [facility] EPIC Patient Care team informatio [...] MemberRelationshipSpecialtyStart DateEnd Date Unallocated, Cong Chi MD [address] [place], [place] [address] [address] PCP - Generalmily Medicine08/17/24Team MemberRelationshipSpecialtyStart DateEnd Date Unallocated, Cong Chi MD [address] [place] [address] PCP - GeneralFamily Medicine08/17/24Team MemberRelationshipSpecialtyStart DateEnd Date Unallocated, Cong Chi MD [address] [place], [place] [address] [address] PCP - GeneralFamily Medicine08/17/24Team MemberRelationshipSpecialtyStart DateEnd Date Unallocated, Cong Chi MD [facility] [place] [address] PCP - Generalmily Medicine08/17/24Team MemberRelationshipSpecialtyStart DateEnd Date Unallocated, Cong Chi MD [address] [place], [place] [address] [address] PCP - GeneralFamily Medicine08/17/24Team MemberRelationshipSpecialtyStart DateEnd Date Unallocated, Noms MD [facility] [place] [address] PCP - GeneralFamily Medicine08/17/24Team MemberRelationshipSpecialtyStart DateEnd Date Unallocated, Noms MD Arti [facility] [address] [facility] [place] [address] PCP - GeneralFamily Medicine08/17/24Team MemberRelationshipSpecialtyStart DateEnd Date Unallocated, Ilianas MD [facility] [place] [address] [facility]/17/24Team MemberRelationshipSpecialtyStart DateEnd Date Unallocated, Cong Chi MD [facility] [place] [address] P[facility] - [facility]08/17/24Team MemberRelationshipSpecialtyStart DateEnd Date Unallocated, Cong Chi MD [facility] [address] [place] [facility] [place] [address] PCP - Generalmily Medicine08/17/24Team MemberRelationshipSpecialtyStart DateEnd Date Unallocated, Cong Chi MD [facility] [place] [address] PCP - GeneralFamily Medicine08/17/24Team MemberRelationshipSpecialtyStart DateEnd Date Unallocated, Cong Chi MD [facility] [place] [address] PCP - Generalmily Medicine08/17/24Team MemberRelationshipSpecialtyStart DateEnd Date Unallocated, Cong Chi MD [place] [place] [address] PCP - GeneralFamily Medicine08/17/24Team MemberRelationshipSpecialtyStart DateEnd Date Unallocated, Noms Provider, [address] [place] [address] PCP - GeneralFamily Medicine08/17/24Team MemberRelationshipSpecialtyStart DateEnd Date No Pcp, [place] [address] PCP - GeneralFamily Medicine05/31/24Team MemberRelationshipSpecialtyStart DateEnd Date No Pcp, [place] [address] PCP - GeneralFamily Medicine05/31/24Team MemberRelationshipSpecialtyStart DateEnd Date No Pcp, [place] [address] PCP - GeneralFamily Medicine05/31/24Team MemberRelationshipSpecialtyStart DateEnd Date Ro Forte, EXECUTIVE ADMINISTRATIVE ASSISTANT [address] Ayers, [address] [address] PCP - [facility]11/24/24Team MemberRelationshipSpecialtyStart DateEnd Date Ro Forte, PETER [address], [address] [address] PCP - [facility]11/24/24Team MemberRelationshipSpecialtyStart DateEnd Date Rohit Leos PA-C [address] [place] [address] PCP - GeneralFamily Medicine03/30/25Team MemberRelationshipSpecialtyStart DateEnd Date Rohit eLos PA-C [address] [place] [address] PCP - GeneralFamily Medicine03/30/25Team MemberRelationshipSpecialtyStart DateEnd Date Rohit Leos PA-C [address] [facility], [address] [address] PCP - [facility] Medicine03/30/25Team MemberRelationshipSpecialtyStart DateEnd Date Rohit Leos PA-C [address] [facility], [address] [address] PCP - [facility] Medicine03/30/25 Team Status: Active Member Role/Relationship Status Dates NON STAFF Primary Care Provider Active Team Status: Inactive Member Role/Relationship Status Dates NON STAFF Primary Care Provider Active Start: September 14, 2025 End: September 14, 2025Pam Godinez ProviderActiveStart: September 14, 2025 End: September 14, 2025Team MemberRelationshipSpecialtyStart DateEnd Date Ro Forte, EXECUTIVE ADMINISTRATIVE ASSISTANT PCP - [facility]11/24/24Team MemberRelationshipSpecialtyStart DateEnd Date Ro Forte, EXECUTIVE ADMINISTRATIVE ASSISTANT PCP - [facility]11/24/24Team MemberRelationshipSpecialtyStart DateEnd Date Ro Forte, EXECUTIVE ADMINISTRATIVE ASSISTANT PCP - [facility]11/24/24Team MemberRelationshipSpecialtyStart DateEnd Date Ro Forte, EXECUTIVE ADMINISTRATIVE ASSISTANT PCP - [facility]11/24/24Team MemberRelationshipSpecialtyStart DateEnd Date Ro Forte, EXECUTIVE ADMINISTRATIVE ASSISTANT PCP - [facility]11/24/24 Goals (unrecognized section and content) Goals may be documented in a n alternate section Reason for Visit (unrecogniz ed section and content) ReasonCommentsPT Progress NoteSpecialtyDiagnoses / ProceduresReferred By Contact Referred To ContactREHAB AND SPORTS THERAPY INS Diagnoses Chronic migraine without aura, intractable, without status migrainosus Trigeminal nerve disorder Procedures CONSULT TO PHYSICAL THERAPY PHYSICAL THERAPY EVALUATION HIGH COMPLEX 45 MINS Maggy Jacobo APRN.SENIOR FUNCTIONAL ANALYST [address] [place] [address] Phone: tel: fax: [facility] [address] [place] [address] Referral IDStatusReasonStart DateExpiration DateVisits RequestedVisits [id number] Auto-Generated Referral [id number] up testingReasonCommentsSialoadenitis ReasonCommentsFacial PainMRI 09/27/24 NOMSReasonCommentsdiscuss lab resultsReason [facility] ServicesWell Women VisitReasonCommentsConsultSpecialtyDiagnoses / Procedures Referred By ContactReferred To ContactMR IMAGING Diagnoses Right trigeminal neuralgia Procedures MRI BRAIN WO/W IVCON MRI BRAIN BRAIN STEM W/O W/CONTRAST MATERIAL Vincenzo Mukherjee [place] [id number] [place] [address] Mr [facility] [place] [address] Referral IDStatusReasonStart DateExpiration DateVisits RequestedVisits [id number] Auto-Generated Referral [id number] / ProceduresReferred By ContactReferred To ContactMR IMAGING Diagnoses Right trigeminal neuralgia Procedures MRA BRAIN WO IVCON MRA, HEAD W/O CONTRAST Vincenzo Mukherjee MD [address] [place] [address] [facility] [place] [address] Referral IDStatusReasonStart DateExpiration DateVisits RequestedVisits [id number] Auto-Generated Referral [id number] PainMigraineTrigeminal Neuralgia SpecialtyDiagnoses / ProceduresReferred By ContactReferred To Contact Diagnoses Right trigeminal neuralgia Procedures PROVIDER ORDERED FOLLOW UP OFFICE/OUTPATIENT [facility] [address] [place] [address] [place] [address] Phone: tel: fax: Referral IDStatusReasonStart DateExpiration DateVisits RequestedVisits [id number] PCP Requested Referral easonOnset CfrqIpkhacovxexerhcu96/19/2024easonComments Follow UpReasonCommentsFollow Upwooshing sound in ears, and head and nMigraine Trigeminal NeuralgiaReasonCommentsPhysical TherapyReasonCommentsNew Patient Trigeminal neuralgiaSpecialtyDiagnoses / ProceduresReferred By ContactReferred To ContactNeurology Diagnoses Trigeminal nerve disorder Procedures OFFICE/OUTPATIENT [facility] 60 MINUTES Maggy Jacobo APRN.SENIOR FUNCTIONAL ANALYST [address] [place] [address] Phone: tel: fax: Referral IDStatusReasonStart DateExpiration DateVisits RequestedVisits [id number] PCP Requested Referral Source Comments (unrecognize d section and content) In the event this informatio n is protected by the Federal Confidentiality of Alcohol and Drug Abuse Patient Records regulations: The Federal rules restrict any use of the information to criminally investigate or prosecute any alcohol or drug abuse patient.[facility] HospitalIn the event this information is protected by the Federal Confidentiality of Alcohol and Drug Abuse Patient Records regulations: The Federal rules restrict any use of the information to criminally investigate or prosecute any alcohol or drug abuse patient.[facility] HospitalIn the event this information is protected by the Federal Confidentiality of Alcohol and Drug Abuse Patient Records regulations: The Federal rules restrict any use of the information to criminally investigate or prosecute any alcohol or drug abuse patient.[facility] HospitalIn the event this information is protected by the Federal Confidentiality of Alcohol and Drug Abuse Patient Records regulations: The Federal rules restrict any use of the information to criminally investigate or prosecute any alcohol or drug abuse patient.[facility] HospitalIn the event this information is protected by the Federal Confidentiality of Alcohol and Drug Abuse Patient Records regulations: The Federal rules restrict any use of the information to criminally investigate or prosecute any alcohol or drug abuse patient.[facility] HospitalIn the event this information is protected by the Federal Confidentiality of Alcohol and Drug Abuse Patient Records regulations: The Federal rules restrict any use of the information to criminally investigate or prosecute any alcohol or drug abuse patient.[facility] HospitalIn the event this information is protected by the Federal Confidentiality of Alcohol and Drug Abuse Patient Records regulations: The Federal rules restrict any use of the information to criminally investigate or prosecute any alcohol or drug abuse patient.[facility] HospitalIn the event this information is protected by the Federal Confidentiality of Alcohol and Drug Abuse Patient Records regulations: The Federal rules restrict any use of the information to criminally investigate or prosecute any alcohol or drug abuse patient.[facility] HospitalIn the event this information is protected by the Federal Confidentiality of Alcohol and Drug Abuse Patient Records regulations: The Federal rules restrict any use of the information to criminally investigate or prosecute any alcohol or drug abuse patient.[facility] HospitalIn the event this information is protected by the Federal Confidentiality of Alcohol and Drug Abuse Patient Records regulations: The Federal rules restrict any use of the information to criminally investigate or prosecute any alcohol or drug abuse patient.[facility] HospitalIn the event this information is protected by the Federal Confidentiality of Alcohol and Drug Abuse Patient Records regulations: The Federal rules restrict any use of the information to criminally investigate or prosecute any alcohol or drug abuse patient.[facility] FOR RECORDS PERTAINING TO PATIENTS WHO [...] BE BASED ON THE PRIMARY CLINICAL RECORDS. [facility] [employer] [facility]. provides no warranty or guarantee of the accuracy or completeness of information in this document.
[2025-11-01 08:27] LABS: Hematocrit 39.4 % (36.0-48.0); Hemoglobin 13.5 g/dL (12.0-16.0); Immature Granulocytes Abs Auto 0.05 10^3/uL (0.00-0.03); Immature Granulocytes Pct Auto 0.6 % (0.0-0.5); Lymphocytes Absolute Auto 1.8 10^3/uL (1.2-3.8); Mean Corpuscular HGB Conc 34.3 g/dL (29.9-35.2); Mean Corpuscular Hemoglobin 29.4 pg (26.7-34.0); Mean Corpuscular Volume 85.8 fL (81.0-99.0); Platelet Count 309 10^3/uL (150-450); Red Blood Count 4.59 10^6/uL (4.20-5.40); White Blood Count 9.0 10^3/uL (4.0-11.0)
[2025-11-01] MEDS: SCOPOLAMINE 1 MG/3 DAYS TRANSDERM PATCH 1 PATCH TD (09:30)
--- NOTE | 2025-11-01 10:50 | P.ON_ITS ---
Brief Operative Note Date of procedure: 11/01/25 Pre-op diagnosis general: pelvic pain, enlarged left ovary Post-op diagnosis: same as pre-op Procedure: NAME OF PROCEDURE: [diagnostic laparoscopy ] PROCEDURE: The patient was taken back to the Operating Room where she was placed in dorsal lithotomy position after given general anesthesia. The patient was prepped and draped in normal sterile fashion. A sponge stick was placed into the patient's vagina. Attention was turned to the patient's abdomen, where a small umbilical incision was made. The fascia was tented using Flaco clamps and the fascia was entered sharply. Confirmation of intraabdominal placement of the 10 mm port was confirmed under direct visualization using a laparoscope. The patient's abdomen was then insufflated using CO2 gas with approximately 4 liters. A second port was placed left laterally, this was done under direct visualization with a 5 mm port. Survey of the patient's abdomen demonstrated normal liver and gallbladder. Survey of the patient's pelvic anatomy demonstrated normal appearing uterus. enlarged left ovary, normal appearing rt ovary, slightly enlarged left tube, tortous and enlarged rt tube, significant adhesions to bowel and pelvic side w all of left ovary, adhesions taken down bluntly and sharply using scissors. No endometrial implants could be noted, no evidence of any pelvic disease was seen, normal appearing pelvic cavity. All instruments were removed from the patient's abdomen. The patient's abdomen was deinsufflated of CO2 gas. The patient tolerated the procedure well. Sponge stick was removed from the patient's vagina. The patient's infraumbilical fascia was closed using #0 Vicryl on a GI needle. The patient's skin was closed laterally and infraumbilically using 4-0 Vicryl. The patient tolerated the procedure well. Sponge, lap and needle counts were correct x 2. The patient was taken to Recovery Room in stable condition. Anesthesia: GETA Surgeon: Jeremy Real Birth Certificate Clerk: Donna Teran Estimated blood loss (mL): 5 Pathology: none sent Condition: stable Disposition: PACU
[2025-11-01] MEDS: HYDROMORPHONE HCL 0.5 MG/0.5 ML SYRINGE IV (11:20)
[2025-11-01] MEDS: HYDROCODONE/ACET 5-325 MG TABLET 1 TAB PO (12:04)
== END 2025-11-01 12:50 | disposition home or self-care (01) ==
PROVIDERS: Visit Provider Obstetrics & Gynecology
PROC: (CPT 840; principal; 2025-11-01 09:30)
DX: R10.20 Pelvic and perineal pain unspecified side (principal); N83.8 Other noninflammatory disorders of ovary, fallopian tube and broad ligament; K66.0 Peritoneal adhesions (postprocedural) (postinfection); F17.290 Nicotine dependence, other tobacco product, uncomplicated
CPT/HCPCS: 49320; 36415; 82948; 84702; 85025; J1100; J1171; J1885; J2250; J2405; J2704; J3010